=== PATIENT | female | born 1950 | race Caucasian/White ===

== ENCOUNTER → 2020-01-31 09:33 | Outpatient (BNVA) | payer MEDICARE, SELFPAY | PROVIDERS: Visit Provider Internal Medicine Cardiovascular Disease | DX: I44.7 Left bundle-branch block, unspecified (principal); R55 Syncope and collapse; I10 Essential (primary) hypertension | CPT/HCPCS: 99212 ==

== ENCOUNTER 2020-04-05 00:08 | Emergency (ER) | payer MEDICARE, SELFPAY ==
[2020-04-05] VITALS (7 sets, daily range): BP systolic 70–146; BP diastolic 44–71; PULSE 70–90; RESP 15–18; TEMP 36.1–36.6; O2SAT 92–99; BMI 33.7
--- NOTE | 2020-04-05 00:26 | ED.ABDPAIN ---
HPI - Abdominal Pain General Chief Complaint: Abdominal Pain Stated Complaint: abdominal pain Time Seen by Provider: 04/05/20 00:24 Source: patient Mode of arrival: ambulatory Limitations: no limitations History of Present Illness HPI narrative: Patient's history of abdominal migraine since 2013 almost every 40 days she gets episodes of diarrhea and vomiting with abdominal pain been followed up with [facility] today since 22:00 patient has similar episode with diffuse abdominal cramping perfuse diarrhea nausea and vomiting blood pressure at home was 70/50 heart rate 90 patient was feeling very weak. With patient usually gets 2 L of IV fluids and gets better in the past. Prior to this today patient was feeling fine no fever no chills no COVID exposure Related Data Home Medications Medication Instructions Recorded Confirmed cholestyramine (with sugar) 4 gram 4 g PO DAILY 01/31/20 04/05/20 powder for susp in a packet fluoxetine 20 mg capsule 20 mg PO DAILY 01/31/20 04/05/20 levothyroxine 112 mcg tablet 112 mcg PO DAILY 01/31/20 04/05/20 metformin 500 mg tablet,extended 1,000 mg PO BID 01/31/20 04/05/20 release 24 hr simvastatin 20 mg tablet 20 mg PO BEDTIME 01/31/20 04/05/20 blood sugar diagnostic [OneTouch 04/05/20 04/05/20 Verio test strips] dulaglutide [Trulicity] 1.5 mg SUBCUT DAILY 04/05/20 04/05/20 nortriptyline 20 mg PO DAILY 04/05/20 04/05/20 omeprazole 1 cap PO DAILY 04/05/20 04/05/20 rivaroxaban [Xarelto] 1 tab PO DAILY 04/05/20 04/05/20 Previous Rx's Medication Instructions Recorded lisinopril 40 mg tablet 40 mg PO DAILY #60 tab 01/31/20 Allergies Allergy/AdvReac Type Severity Reaction Status Date / Time atenolol Allergy Unknown hives Verified 09/22/19 00:00 Beta-Blockers Allergy Unknown HIVES Verified 04/05/20 00:24 (Beta-Adrenergic Bloc [BETA-BLOCKERS (BETA-ADRENERGIC BLOC] vancomycin [VANCOMYCIN] Allergy Unknown NAUSEA & Verified 04/05/20 00:24 VOMITING Review of Systems Review of Systems Constitutional : No Weight loss, No Fever, No Chills ENT/Mouth : No sore throat, No Rhinorrhea Eyes: No Eye Pain, No Swelling Cardiovascular : No Chest Pain, no palpitations Respiratory : No Cough, No Sputum, no shortness of breath Gastrointestinal : ++ Nausea, + Vomiting, +++Diarrhea, + abdominal Pain, no black stools Genitourinary : No Dysuria, No Urinary Frequency Musculoskeletal : No joint pain, No Myalgias, No Joint Swelling Skin : No Skin Lesions, No rash Neuro : No Weakness, No Numbness, No Dizziness, No Headache Psych : No Anxiety/Panic, No Depression Heme/Lymph: No Bruising, No Lymphadenopathy Endocrine : No Polyuria, No Polydipsia All other systems reviewed and are negative Physical Exam Vital Signs: Vital Signs: Last Vital Signs Temp 97.8 F 04/05/20 02:00 Pulse 72 04/05/20 04:00 Resp 15 04/05/20 04:00 BP 114/55 L 04/05/20 04:00 Pulse Ox 99 04/05/20 04:00 Body Mass Index 33.7 Appearance: Alert. Oriented X3. In moderate distress. Looks weak Eyes: Pupils equal, round and reactive to light. ENT: Pharynx normal. Neck: Normal inspection. Neck supple. CVS: Normal heart rate and rhythm. Pulses normal. Respiratory: No respiratory distress. Breath sounds normal. Abdomen: Soft and nontender. Bowel sounds are present, no mass palpable, no CVA tenderness Skin: Skin warm and dry. Normal skin color. Normal skin turgor. Extremities: No lower extremity edema. Neuro: Oriented X 3. No motor deficit. No sensory deficit. MDM - Abdominal Pain MDM Narrative Medical decision making narrative: Patient's abdominal migraine with frequent diarrhea and nausea vomiting episodes almost every month came here with similar situation usually patient's blood pressure drops and gets better after IV fluids patient blood pressure improved to 146/68 after 2 L of IV fluid patient went to bathroom and had another loose bowel will give another L bolus along with Imodium Differential Diagnosis Differential diagnosis: Likely abdominal pain Lab Data Result diagrams: 04/05/20 01:04 04/05/20 01:04 Labs: Lab Results 04/05/20 04/05/20 Range/Units 01:04 01:04 WBC 18.2 H (4.8-10.8) X10*3/uL RBC 5.51 H (4.20-5.50) X10*6/uL Hgb 15.6 (12.0-16.0) g/dl Hct 48.2 H (37-47) % MCV 87.5 (80-98) fL MCH 28.3 (27.0-33.0) pg MCHC 32.4 (31.0-35.0) g/dl RDW 13.0 (11.0-16.0) % Plt Count 381 (160-400) X10*3/uL MPV 8.9 L (9.4-12.3) fL Immature Gran % (Auto) 1.0 H (0.0-0.4) % Neut % (Auto) 76.9 H (45-73) % Lymph % (Auto) 15.8 L (20-40) % [place] % (Auto) 4.3 (2-11) % Eos % (Auto) 1.6 (0-4) % Baso % (Auto) 0.4 (0-2) % Lymph # (Auto) 2.9 (1.2-4.9) X10*3/uL [place] # (Auto) 0.8 (0.1-1.2) X10*3/uL Eos # (Auto) 0.3 (0.0-0.4) X10*3/uL Baso # (Auto) 0.1 (0.0-0.2) X10*3/uL Abs Immat Gran (auto) 0.19 H (0.00-0.03) X10*3/uL Absolute Neuts (auto) 14.0 H (2.0-8.3) X10*3/uL Absolute Nucleated RBC 0.000 (0.0-0.012) X10*3/uL Nucleated RBC % (auto) 0.0 (0.0-0.2) /100WBC Sodium 141 (135-145) mmol/L Potassium 3.6 (3.3-5.1) mmol/L Chloride 103 (96-108) mmol/L Carbon Dioxide 27 (22-29) mmol/L Anion Gap 15 (12-20) BUN 14 (9-16) mg/dL Creatinine 0.83 (0.5-1.4) mg/dL Estim Creat Clear Calc 67.2 Estimated GFR > 60 Random Glucose 202 H (60-115) mg/dL Calcium 8.9 (8.4-10.2) mg/dL Magnesium 1.7 (1.6-2.6) mg/dL Total Bilirubin 0.6 (0.0-1.0) mg/dL Direct Bilirubin 0.3 (0.0-0.5) mg/dL AST 18 (5-31) U/L ALT 17 (0-31) U/L Alkaline Phosphatase 48 (39-117) U/L Total Protein 5.8 L (6.5-8.0) g/dL Albumin 3.6 (3.5-5.0) g/dL Discharge Plan Discharge Clinical Impression: Abdominal migraine Qualifiers: Intractability: intractable Qualified Code(s): G43.D1 - Abdominal migraine, intractable Patient Disposition: Home, Self-Care Instructions: Acute Diarrhea (ED) Additional Instructions: Drink plenty of fluids. Continue medications as prescribed by your PCP Prescriptions: No Action (DME) OneTouch Verio test strips Strip MISCELLANEOUS DAILY RF: 0 nortriptyline 10 mg capsule 20 mg PO DAILY RF: 0 omeprazole 20 mg capsule,delayed release(DR/EC) 1 cap PO DAILY RF: 0 Xarelto 20 mg tablet 1 tab PO DAILY RF: 0 Trulicity 1.5 mg/0.5 mL pen injector 1.5 mg subcut DAILY RF: 0 metformin 500 mg tablet extended release 24 hr 1,000 mg PO BID RF: 0 simvastatin 20 mg tablet 20 mg PO BEDTIME RF: 0 levothyroxine 112 mcg tablet 112 mcg PO DAILY RF: 0 fluoxetine 20 mg capsule 20 mg PO DAILY RF: 0 cholestyramine (with sugar) 4 gram powder in packet 4 g PO DAILY RF: 0 lisinopril 40 mg tablet 40 mg PO DAILY Qty: 60 RF: 4 Interventions: ED Discharge Assessment Last Done: 04/05/20 03:50 Discharge Date/Time: 04/05/20 04:38 [facility] Past Medical History Medical History Abdominal migraine Bundle branch block, left Diabetes Pulmonary embolism Surgical History History of partial hysterectomy LAP-BAND surgery status Family History Family History Father CVD (cardiovascular disease) Diabetes Mother Diabetes Mitral valve prolapse Social History Social History Smoking Status: Never smoker Use of substances other than those prescribed or required for medical reasons: No Advance Directives: No
[2020-04-05] MEDS: 0.9 % Sodium Chloride 1,000 ML 999 ML IVCONT ×3 (01:23→03:00)
[2020-04-05] MEDS: ondansetron HCL 4 MG/2 ML VIAL IVPUSH (01:23)
[2020-04-05 01:31] LABS: MANUAL DIFF FLAG NO
[2020-04-05 01:32] LABS: Basophils Absolute Auto 0.1 X10*3/uL (0.0-0.2); Basophils Percent Auto 0.4 % (0-2); Eosinophils Absolute Auto 0.3 X10*3/uL (0.0-0.4); Eosinophils Percent Auto 1.6 % (0-4); Hematocrit 48.2 % (37-47); Hemoglobin 15.6 g/dl (12.0-16.0); Imm Gran Abs Auto 0.19 X10*3/uL (0.00-0.03); Lymphocytes Absolute Auto 2.9 X10*3/uL (1.2-4.9); Lymphocytes Percent Auto 15.8 % (20-40); Mean Corpuscular HGB Conc 32.4 g/dl (31.0-35.0); Mean Corpuscular Hemoglobin 28.3 pg (27.0-33.0); Mean Corpuscular Volume 87.5 fL (80-98); Mean Platelet Volume 8.9 fL (9.4-12.3); Monocytes Absolute Auto 0.8 X10*3/uL (0.1-1.2); Monocytes Percent Auto 4.3 % (2-11); Neutrophils Percent Auto 76.9 % (45-73); Platelet Count 381 X10*3/uL (160-400); Red Blood Count 5.51 X10*6/uL (4.20-5.50); White Blood Count 18.2 X10*3/uL (4.8-10.8)
[2020-04-05 02:00] LABS: Alanine Aminotransferase 17 U/L (0-31); Albumin Level 3.6 g/dL (3.5-5.0); Alkaline Phosphatase 48 U/L (39-117); Anion Gap 15 (12-20); Aspartate Amino Transferase 18 U/L (5-31); Bilirubin Direct 0.3 mg/dL (0.0-0.5); Bilirubin Total 0.6 mg/dL (0.0-1.0); Blood Urea Nitrogen 14 mg/dL (9-16); Calcium 8.9 mg/dL (8.4-10.2); Carbon Dioxide 27 mmol/L (22-29); Chloride 103 mmol/L (96-108); Creatinine Clr Calc Pharmacy 67.2; Estimated Glomerular Filt Rate > 60; Glucose Random 202 mg/dL (60-115); Magnesium 1.7 mg/dL (1.6-2.6); Potassium 3.6 mmol/L (3.3-5.1); Sodium 141 mmol/L (135-145); Total Protein 5.8 g/dL (6.5-8.0)
[2020-04-05] MEDS: Loperamide HCl 2 MG CAPSULE 4 MG PO (03:37)
== END 2020-04-05 04:38 | disposition home or self-care (01) ==
PROVIDERS: Emergency Provider Internal Medicine; PCP Internal Medicine
DX: G43.D1 Abdominal migraine, intractable (principal); R19.7 Diarrhea, unspecified; E11.9 Type 2 diabetes mellitus without complications; Z86.711 Personal history of pulmonary embolism; Z79.84 Long term (current) use of oral hypoglycemic drugs; Z79.02 Long term (current) use of antithrombotics/antiplatelets; Z79.899 Other long term (current) drug therapy
CPT/HCPCS: 36415; 80048; 80076; 83735; 85025; 96361; 96374; 96375; 99284; 99285; J2405

== ENCOUNTER → 2020-04-17 12:14 | Outpatient (BNVA) | payer MEDICARE, SELFPAY | PROVIDERS: PCP Internal Medicine; Visit Provider Internal Medicine Cardiovascular Disease | DX: I44.7 Left bundle-branch block, unspecified (principal); R55 Syncope and collapse; I10 Essential (primary) hypertension | CPT/HCPCS: 99212 ==

== ENCOUNTER → 2020-07-17 08:57 | Outpatient (BNVA) | payer MEDICARE, SELFPAY | PROVIDERS: PCP Internal Medicine; Referring Provider Internal Medicine; Visit Provider Internal Medicine Cardiovascular Disease | DX: I44.7 Left bundle-branch block, unspecified (principal); I10 Essential (primary) hypertension; R55 Syncope and collapse | CPT/HCPCS: 93005; 99212 ==

== ENCOUNTER → 2020-11-22 09:18 | Outpatient (BNVA) | payer MEDICARE, SELFPAY | PROVIDERS: PCP Internal Medicine; Referring Provider Internal Medicine; Visit Provider Internal Medicine Cardiovascular Disease | DX: I44.7 Left bundle-branch block, unspecified (principal); R55 Syncope and collapse; I10 Essential (primary) hypertension | CPT/HCPCS: 99212 ==

== ENCOUNTER 2021-03-01 19:06 | Emergency (ER) | payer MEDICARE, SELFPAY ==
--- NOTE | 2021-03-01 19:16 | ED.GENADULT ---
HPI - General Adult General Chief complaint: General Medical Stated complaint: hypotension/diarrhea Time Seen by Provider: 03/01/21 19:11 Source: patient and EMS Mode of arrival: EMS Limitations: no limitations History of Present Illness HPI narrative: Patient comes to emergency room complaining of an abdominal migraine. Patient states that she gets a very sudden onset of flushing sensation in her face, lightheadedness. Patient states that she lowered herself to the ground, put her legs up against a wall. Then patient had profuse diarrhea. Patient states that this is how her abdominal migraines usually presents, she has had this episodes multiple times in the past. During this episodes, patient's blood pressure drops to the 70s. Patient states that when she gets 2 L of normal saline, her symptoms improved, and she is usually discharged home. Patient is on Xarelto, denies any black stool or bloody stool. Patient did not hit her head or loss consciousness, patient lowered herself to the above-mentioned reason. At this time, patient states that she feels better. Patient denies chest pain, no shortness of breath, no abdominal pain. Related Data Home Medications Medication Instructions Recorded Confirmed cholestyramine (with sugar) 4 gram 4 g PO DAILY 01/31/20 11/22/20 powder for susp in a packet fluoxetine 20 mg capsule 20 mg PO DAILY 01/31/20 11/22/20 levothyroxine 112 mcg tablet 112 mcg PO DAILY 01/31/20 11/22/20 metformin 500 mg tablet,extended 1,000 mg PO BID 01/31/20 11/22/20 release 24 hr simvastatin 20 mg tablet 20 mg PO BEDTIME 01/31/20 11/22/20 blood sugar diagnostic (OneTouch 04/05/20 11/22/20 Verio test strips) dulaglutide 1.5 mg/0.5 mL 1.5 mg SUBCUT DAILY 04/05/20 11/22/20 subcutaneous pen injector (Trulicity) omeprazole 20 mg capsule,delayed 1 cap PO DAILY 04/05/20 11/22/20 release rivaroxaban 20 mg tablet (Xarelto) 1 tab PO DAILY 04/05/20 11/22/20 hyoscyamine sulfate 0.125 mg 0.125 mg SUBLINGUAL DAILY PRN 04/17/20 11/22/20 sublingual tablet metoprolol succinate 25 mg See Rx Instructions PO BID 07/17/20 11/22/20 tablet,extended release 24 hr nortriptyline 50 mg capsule 50 mg PO BEDTIME 07/17/20 11/22/20 galcanezumab-gnlm 120 mg/mL mg SUBCUT 11/22/20 11/22/20 subcutaneous syringe (Emgality) Previous Rx's Medication Instructions Recorded lisinopril 40 mg tablet 20 mg PO DAILY 90 Days #45 tab 11/07/20 Allergies Allergy/AdvReac Type Severity Reaction Status Date / Time atenolol Allergy Intermediate hives Verified 03/01/21 19:17 Beta-Blockers Allergy Intermediate HIVES Verified 03/01/21 19:17 (Beta-Adrenergic Bloc [BETA-BLOCKERS (BETA-ADRENERGIC BLOC] vancomycin [VANCOMYCIN] Allergy Intermediate NAUSEA & Verified 03/01/21 19:17 VOMITING Review of Systems Review of Systems: Constitutional : No Weight loss, No Fever, No Chills, No Night Sweats, No Fatigue, No Malaise ENT/Mouth : No Hearing loss, No Ear Pain, No Nasal Congestion, No Sinus Pain, No Hoarseness, No sore throat, No Rhinorrhea, No Swallowing Difficulty Eyes: No Eye Pain, No Swelling, No Redness, No Foreign Body, No Discharge, No Vision Changes Cardiovascular : No Chest Pain, No SOB, No Dyspnea on Exertion, No Orthopnea, No Edema, No Palpitations Respiratory : No Cough, No Sputum, No Wheezing, No Smoke Exposure, No Dyspnea Gastrointestinal : Abdominal migraine, nausea, profuse diarrhea. No Constipation, No abdominal Pain, No Hematochezia, No Melena Genitourinary : no irregular bleeding, No Dysuria, No Urinary Frequency, No Hematuria, No Urinary Incontinence, No Urgency, No Flank Pain, No Urinary Flow Changes, No Hesitancy Musculoskeletal : No joint pain, No Myalgias, No Joint Swelling Skin : No Skin Lesions, No rash Neuro : No Weakness, No Numbness, No Paresthesias, No Loss of Consciousness, No Dizziness, No Headache Psych : No Anxiety/Panic, No Depression, No SI/HI/AH/VH, No Social Issues, Heme/Lymph: No Bruising, No Bleeding,No Lymphadenopathy Endocrine : No Polyuria, No Polydipsia, No Temperature Intolerance PMFSH Past Medical History Medical History Abdominal migraine Bundle branch block, left Diabetes Pulmonary embolism Surgical History History of partial hysterectomy LAP-BAND surgery status Family History Family History Father CVD (cardiovascular disease) Diabetes Mother Diabetes Mitral valve prolapse Social History Social History Alcohol intake: never Patient Tobacco Use Status: Never used Tobacco Advance Directives: No Advance Directives Information Provided: Yes Physical Exam Vital Signs: Vital Signs: Last Vital Signs Temp 97.5 F 03/01/21 19:42 Pulse 71 03/01/21 20:43 Resp 22 H 03/01/21 19:42 BP 113/56 L 03/01/21 20:43 Pulse Ox 95 03/01/21 19:42 BMI result Body Mass Index 33.9 Const: Other: Appearance: Alert. Oriented X3. No acute distress. Eyes: Pupils equal, round and reactive to light. ENT: Pharynx normal. Neck: Normal inspection. Neck supple. No lymph nodes noted. No crepitus CVS: Normal heart rate and rhythm. Pulses normal. Normal S1 and S2 Respiratory: No respiratory distress. Breath sounds normal. No Wheezing. No rales Abdomen: Soft and nontender. No rigidity. No distention. Skin: Skin warm and dry. Slightly pale. Extremities: No lower extremity edema. No Lacerations. No Rash Neuro: Oriented X 3. No motor deficit. No sensory deficit. Moving all extermities. No slurred speech. Course Course Course Narrative: After 2 L of IV fluids, patient states that she feels much better. Blood pressure 104 systolic. Patient denies dizziness, no more diarrhea, no abdominal pain, no chest pain or shortness of breath. Orthostatic vitals are negative. Patient has no dizziness, patient states that she feels back to baseline. Patient states that she has enough medications for nausea and diarrhea at home, does not require a prescription with her will be picking her up shortly Medical Decision Making Lab Data Result diagrams: 03/01/21 19:36 03/01/21 19:36 Labs: Lab Results 03/01/21 03/01/21 Range/Units 19:36 19:36 WBC 9.5 (4.8-10.8) X10*3/uL RBC 4.43 (4.20-5.50) X10*6/uL Hgb 12.5 (12.0-16.0) g/dl Hct 38.7 (37.0-47.0) % MCV 87.4 (80.0-98.0) fL MCH 28.2 (27.0-33.0) pg MCHC 32.3 (31.0-35.0) g/dl RDW 12.9 (11.0-16.0) % Plt Count 313 (160-400) X10*3/uL MPV 8.9 L (9.4-12.3) fL Immature Gran % (Auto) 0.5 H (0.0-0.4) % Neut % (Auto) 60.4 (45-73) % Lymph % (Auto) 28.3 (20-40) % [place] % (Auto) 7.9 (2-11) % Eos % (Auto) 2.3 (0-4) % Baso % (Auto) 0.6 (0-2) % Lymph # (Auto) 2.7 (1.2-4.9) X10*3/uL [place] # (Auto) 0.8 (0.1-1.2) X10*3/uL Eos # (Auto) 0.2 (0.0-0.4) X10*3/uL Baso # (Auto) 0.1 (0.0-0.2) X10*3/uL Abs Immat Gran (auto) 0.05 H (0.00-0.03) X10*3/uL Absolute Neuts (auto) 5.7 (2.0-8.3) x10*3/uL Absolute Nucleated RBC 0.000 (0.0-0.012) X10*3/uL Nucleated RBC % (auto) 0.0 (0.0-0.2) /100WBC Sodium 139 (135-145) mmol/L Potassium 4.2 (3.3-5.1) mmol/L Chloride 105 (96-108) mmol/L Carbon Dioxide 28 (22-29) mmol/L Anion Gap 10 L (12-20) BUN 10 (9-16) mg/dL Creatinine 0.74 (0.5-1.4) mg/dL Estim Creat Clear Calc 72.8 Estimated GFR > 60 Random Glucose 126 H (60-115) mg/dL Calcium 8.7 (8.4-10.2) mg/dL Total Bilirubin 0.6 (0.0-1.0) mg/dL Direct Bilirubin 0.2 (0.0-0.5) mg/dL AST 15 (5-31) U/L ALT 10 (0-31) U/L Alkaline Phosphatase 45 (39-117) U/L Total Protein 5.6 L (6.5-8.0) g/dL Albumin 3.3 L (3.5-5.0) g/dL Discharge Plan Discharge Clinical Impression: Abdominal migraine Patient Disposition: Home, Self-Care Instructions: Acute Diarrhea (ED) Additional Instructions: Please follow-up with your primary care physician tomorrow. If you have any worsening or new symptoms, please return to the emergency room or call 911 Prescriptions: No Action lisinopril 40 mg tablet 20 mg PO DAILY 90 Days Qty: 45 RF: 3 (DME) OneTouch Verio test strips Strip MISCELLANEOUS DAILY RF: 0 omeprazole 20 mg capsule,delayed release(DR/EC) 1 cap PO DAILY RF: 0 Xarelto 20 mg tablet 1 tab PO DAILY RF: 0 Trulicity 1.5 mg/0.5 mL pen injector 1.5 mg subcut DAILY RF: 0 metformin 500 mg tablet extended release 24 hr 1,000 mg PO BID RF: 0 simvastatin 20 mg tablet 20 mg PO BEDTIME RF: 0 levothyroxine 112 mcg tablet 112 mcg PO DAILY RF: 0 fluoxetine 20 mg capsule 20 mg PO DAILY RF: 0 cholestyramine (with sugar) 4 gram powder in packet 4 g PO DAILY RF: 0 hyoscyamine sulfate 0.125 mg tablet, sublingual 0.125 mg sublingual DAILY PRNRF: 0 metoprolol succinate 25 mg tablet extended release 24 hr See Rx Instructions PO BID RF: 0 nortriptyline 50 mg capsule 50 mg PO BEDTIME RF: 0 Emgality Syringe 120 mg/mL syringe subcut RF: 0
[2021-03-01 19:17] VITALS: BP 50/30; BP 83/40; PULSE 70; PULSE 76; RESP 18; O2SAT 90; O2SAT 98; BMI 33.9
[2021-03-01] MEDS: 0.9 % Sodium Chloride 2,000 ML 999 ML IVCONT (19:38)
[2021-03-01] MEDS: Loperamide HCl 2 MG CAPSULE 4 MG PO (19:40)
[2021-03-01 19:42] VITALS: BP 81/34; PULSE 67; RESP 22; TEMP 36.4; O2SAT 95
[2021-03-01 19:42] LABS: MANUAL DIFF FLAG NO
[2021-03-01 19:49] LABS: Basophils Absolute Auto 0.1 X10*3/uL (0.0-0.2); Basophils Percent Auto 0.6 % (0-2); Eosinophils Absolute Auto 0.2 X10*3/uL (0.0-0.4); Eosinophils Percent Auto 2.3 % (0-4); Hematocrit 38.7 % (37.0-47.0); Hemoglobin 12.5 g/dl (12.0-16.0); Imm Gran Abs Auto 0.05 X10*3/uL (0.00-0.03); Imm Gran Pct Auto 0.5 % (0.0-0.4); Lymphocytes Absolute Auto 2.7 X10*3/uL (1.2-4.9); Lymphocytes Percent Auto 28.3 % (20-40); Mean Corpuscular HGB Conc 32.3 g/dl (31.0-35.0); Mean Corpuscular Hemoglobin 28.2 pg (27.0-33.0); Mean Corpuscular Volume 87.4 fL (80.0-98.0); Mean Platelet Volume 8.9 fL (9.4-12.3); Monocytes Absolute Auto 0.8 X10*3/uL (0.1-1.2); Monocytes Percent Auto 7.9 % (2-11); Neutrophils Absolute Auto 5.7 x10*3/uL (2.0-8.3); Neutrophils Percent Auto 60.4 % (45-73); Platelet Count 313 X10*3/uL (160-400); Red Blood Count 4.43 X10*6/uL (4.20-5.50); Red Cell Distribution Width 12.9 % (11.0-16.0); White Blood Count 9.5 X10*3/uL (4.8-10.8)
[2021-03-01 19:57] LABS: Alanine Aminotransferase 10 U/L (0-31); Albumin Level 3.3 g/dL (3.5-5.0); Alkaline Phosphatase 45 U/L (39-117); Anion Gap 10 (12-20); Aspartate Amino Transferase 15 U/L (5-31); Bilirubin Direct 0.2 mg/dL (0.0-0.5); Bilirubin Total 0.6 mg/dL (0.0-1.0); Blood Urea Nitrogen 10 mg/dL (9-16); Calcium 8.7 mg/dL (8.4-10.2); Carbon Dioxide 28 mmol/L (22-29); Chloride 105 mmol/L (96-108); Creatinine Clr Calc Pharmacy 72.8; Estimated Glomerular Filt Rate > 60; Glucose Random 126 mg/dL (60-115); Potassium 4.2 mmol/L (3.3-5.1); Sodium 139 mmol/L (135-145); Total Protein 5.6 g/dL (6.5-8.0)
[2021-03-01 20:41] VITALS: BP 114/59; PULSE 72
[2021-03-01 20:42] VITALS: BP 122/58; PULSE 72
[2021-03-01 20:43] VITALS: BP 113/56; PULSE 71
== END 2021-03-01 21:47 | disposition home or self-care (01) ==
PROVIDERS: Emergency Provider Emergency Medicine
DX: G43.D0 Abdominal migraine, not intractable (principal); E11.9 Type 2 diabetes mellitus without complications; Z79.4 Long term (current) use of insulin
CPT/HCPCS: 36415; 80048; 80076; 85025; 96360; 96361; 99284

== ENCOUNTER 2021-03-26 09:41 | Outpatient (REF) | payer MEDICARE, SELFPAY ==
[2021-03-26 12:05] LABS: D Dimer High Sensitivity 194 NG/ML
[2021-03-26 12:30] LABS: B Type Natriuretic Peptide 947 pg/mL (<100)
== END 2021-03-26 09:42 | disposition home or self-care (01) ==
LOC: HO.LAB 09:41
PROVIDERS: PCP Internal Medicine; Visit Provider Internal Medicine Cardiovascular Disease
DX: R06.00 Dyspnea, unspecified (principal)
CPT/HCPCS: 36415; 83880; 85379

== ENCOUNTER 2021-03-28 07:44 | Observation (INO) | payer MEDICARE, SELFPAY ==
[2021-03-28] VITALS (12 sets, daily range): BP systolic 000–128; BP diastolic 00–69; PULSE 77–93; RESP 16–20; TEMP 36.2–36.8; O2SAT 91–97; BMI 32.2
--- NOTE | ~2021-03-28 | XR_ITS ---
EXAMINATION: XR CHEST CLINICAL INFORMATION: Evaluate for edema COMPARISON: December 10, 2018 TECHNIQUE: AP portable view of the chest was obtained. FINDINGS: The cardiopericardial silhouette is enlarged. There is no evidence of pulmonary edema. There is some left base lung disease which may be related to atelectasis or pneumonitis. No pneumothorax or pleural effusion. XR/XR chest 1V IMPRESSION: Cardiomegaly without pulmonary edema. Left lung base disease.
--- NOTE | ~2021-03-28 | CT_ITS ---
EXAMINATION: CT ABDOMEN AND PELVIS WITHOUT AND WITH CONTRAST CLINICAL INFORMATION: Abdominal pain COMPARISON: 12/10/2018 TECHNIQUE: Multidetector volumetric imaging was performed of the abdomen and pelvis before and after the IV administration of 100 mL of Omnipaque 300 intravenous contrast. Sagittal and coronal reformatted images were obtained on the technologist's workstation. This CT examination was performed using dose optimization techniques as appropriate, variously including the following: *Automated exposure control *Adjustment of mA and/or kV according to patient size (this includes techniques or standardized protocols for targeted exams where dose is matched to indication/reason for exam; i.e. extremities or head) *Use of iterative reconstruction technique DLP: 1624 mGy-cm FINDINGS: LUNG BASES: Dependent atelectasis and tiny bilateral pleural effusions. PERITONEAL BASES: Small volume of abdominal ascites. LIVER, GALLBLADDER, AND BILIARY TREE: Tiny millimeter-sized low-attenuation probable hepatic cysts but no suspicious hepatic lesion nor biliary ductal dilatation The gallbladder is unremarkable with no evidence of radiopaque gallstones, gallbladder wall thickening, or obvious pericholecystic inflammatory changes. PANCREAS: Unremarkable SPLEEN: Unremarkable ADRENAL GLANDS: Stable nodularity to the left adrenal gland measuring 1.8 cm in maximal size with stable nodularity to the right adrenal gland measuring 1.4 cm in size. KIDNEYS AND URETERS: The kidneys are normal in size, shape, and attenuation. No hydronephrosis, hydroureter, or calculi seen. No perinephric stranding. BLADDER: Unremarkable GASTROINTESTINAL TRACT: Colon is redundant. There is abnormal colonic wall thickening extending from the distal transverse colon to the proximal sigmoid colon. There is pericolonic inflammatory change associated with this region of probable colitis. The more proximal colon is grossly unremarkable. No obstructive changes to the small bowel. Mapping and noted. ABDOMINAL WALL: Again there is a coarse calcification the right lower quadrant abdominal wall similar to the prior study LYMPH NODES: Normal VASCULAR: Mild vascular calcification within the aorta iliac system PELVIC VISCERA: Presumably surgically absent OSSEOUS STRUCTURES: Unremarkable CT/CT abdomen pelvis wo/w con IMPRESSION: Main finding of note is abnormal colonic wall thickening from the distal transverse colon to the proximal sigmoid colon. With this long segment of disease, infectious or inflammatory causes of colitis would be favored. This is a relatively long segment area for ischemic colitis. Clinical correlation would be needed in this setting. There are other more chronic appearing changes as described above. Fleischner guidelines were followed.
--- NOTE | ~2021-03-28 | CT_ITS ---
EXAMINATION: CT CHEST WITHOUT CONTRAST CLINICAL INFORMATION: Evaluate for pneumonia COMPARISON: Previous chest x-rays most recent from earlier the same day TECHNIQUE: Multidetector volumetric CT imaging of the chest was done. Axial MIP volume rendering provided. Sagittal and coronal reformatted images were obtained. This CT examination was performed using dose optimization techniques as appropriate, variously including the following: *Automated exposure control *Adjustment of mA and/or kV according to patient size (this includes techniques or standardized protocols for targeted exams where dose is matched to indication/reason for exam; i.e. extremities or head) *Use of iterative reconstruction technique DLP: 256 mGy-cm FINDINGS: GUIDANCE CONSULTANT: LUNGS: The lungs are clear with no evidence of inflammation or nodules. MEDIASTINUM: The heart is enlarged. There is mild coronary artery calcification. There is no pericardial effusion. There is shotty diffuse mediastinal lymphadenopathy. Evaluation for hilar adenopathy is limited without contrast. PLEURA: There are small bilateral pleural effusions, right greater than left. AXILLA: No lymphadenopathy. UPPER ABDOMEN: There is a small amount of ascites. There is a gastric lap band. There may be a small 8 x 10 mm low-attenuation left adrenal nodule. There is fat stranding seen in the left upper quadrant adjacent to the colon. There is question of mild wall thickening of the visualized left colon. OSSEOUS STRUCTURES: There are degenerative changes of the spine. CT/CT chest wo con IMPRESSION: Enlarged heart and small bilateral pleural effusions. Possible mild CHF should be considered. Gastric lap band. Small amount of ascites. Fat stranding in the left upper quadrant surrounding the colon and question mild bowel wall thickening. Clinical correlation is recommended. This finding could be better evaluated with abdominal pelvic CT scan if clinically indicated. Fleischner guidelines were followed.
--- NOTE | 2021-03-28 07:53 | ECG_ITS ---
Test Reason : HYPOTENSIVE Blood Pressure : / mmHG Vent. Rate : 076 BPM Atrial Rate : 076 BPM P-R Int : 186 ms QRS Dur : 144 ms QT Int : 466 ms P-R-T Axes : 062 -80 094 degrees QTc Int : 524 ms Normal sinus rhythm Left axis deviation Non-specific intra-ventricular conduction block Inferior infarct , age undetermined Anterolateral infarct , age undetermined Abnormal ECG When compared with ECG of 10-DEC-2018 18:13, Questionable change in QRS duration Anterior infarct is now Present Anterolateral infarct is now Present Inferior infarct is now Present Referred By: Claribel Perez Electronically Signed By:RANJANA PEREZ MD
--- NOTE | 2021-03-28 07:54 | ED.WEAKNESS ---
HPI - Weakness General Chief complaint: Headache Stated complaint: LOW BP 70/42, IV 500NS, 87/42,ABD PAIN,DIARRHEA Time Seen by Provider: 03/28/21 07:52 Source: patient Mode of arrival: EMS Limitations: no limitations History of Present Illness Complaint: generalized weakness (BP in 70s, abdominal migraine, liquid stools) Onset (ago): hour(s) (few) Duration: constant Location: generalized Migration: none Severity: moderate Quality: dull Relieving factors: other (given IVF by EMS) Context: other (hx of similar bouts with abdominal migraines in past) Associated symptoms: loss of appetite and nausea/vomiting Related Data Home Medications Medication Instructions Recorded Confirmed cholestyramine (with sugar) 4 gram 4 g PO DAILY 01/31/20 03/26/21 powder for susp in a packet fluoxetine 20 mg capsule 20 mg PO DAILY 01/31/20 03/26/21 levothyroxine 112 mcg tablet 112 mcg PO DAILY 01/31/20 03/26/21 metformin 500 mg tablet,extended 1,000 mg PO BID 01/31/20 03/26/21 release 24 hr simvastatin 20 mg tablet 20 mg PO BEDTIME 01/31/20 03/26/21 blood sugar diagnostic (OneTouch 04/05/20 03/26/21 Verio test strips) dulaglutide 1.5 mg/0.5 mL 1.5 mg SUBCUT DAILY 04/05/20 03/26/21 subcutaneous pen injector (Trulicity) omeprazole 20 mg capsule,delayed 1 cap PO DAILY 04/05/20 03/26/21 release rivaroxaban 20 mg tablet (Xarelto) 1 tab PO DAILY 04/05/20 03/26/21 hyoscyamine sulfate 0.125 mg 0.125 mg SUBLINGUAL DAILY PRN 04/17/20 03/26/21 sublingual tablet metoprolol succinate 25 mg See Rx Instructions PO BID 07/17/20 03/26/21 tablet,extended release 24 hr nortriptyline 50 mg capsule 50 mg PO BEDTIME 07/17/20 03/26/21 galcanezumab-gnlm 120 mg/mL mg SUBCUT 11/22/20 03/26/21 subcutaneous syringe (Emgality) Previous Rx's Medication Instructions Recorded lisinopril 40 mg tablet 20 mg PO DAILY 90 Days #45 tab 11/07/20 Allergies Allergy/AdvReac Type Severity Reaction Status Date / Time atenolol Allergy Intermediate hives Verified 03/26/21 10:16 Beta-Blockers Allergy Intermediate HIVES Verified 03/26/21 10:16 (Beta-Adrenergic Bloc [BETA-BLOCKERS (BETA-ADRENERGIC BLOC] vancomycin [VANCOMYCIN] Allergy Intermediate NAUSEA & Verified 03/26/21 10:16 VOMITING Review of Systems Review of Systems: Constitutional : No Weight loss, No Fever, No Chills ENT/Mouth : No sore throat, No Rhinorrhea Eyes: No Swelling, No Redness Cardiovascular : No Chest Pain, No SOB, NoEdema Respiratory : No Cough, No Sputum, No Wheezing Gastrointestinal : Positive Nausea, no Vomiting, positive Diarrhea, positive abdominal Pain, No Hematochezia, No Melena Genitourinary : No Dysuria, No Urinary Frequency, No Hematuria, No Urgency Musculoskeletal : No joint pain, No Myalgias, No Joint Swelling Skin : No Skin Lesions, No rash Neuro : pos Weakness, No Numbness, No Dizziness, No Headache Psych : No Anxiety/Panic, No Depression Heme/Lymph: No Bruising, No Lymphadenopathy Endocrine : No Polyuria, No Polydipsia All other systems reviewed and are negative. [facility] Past Medical History Attestation statement: The following information was validated with the patient. Medical History Abdominal migraine Bundle branch block, left Diabetes Ischemic bowel disease Pulmonary embolism Surgical History History of partial hysterectomy LAP-BAND surgery status Family History Family History Father CVD (cardiovascular disease) Diabetes Mother Diabetes Mitral valve prolapse Social History Social History Alcohol intake: never Patient Tobacco Use Status: Never used Tobacco Use of substances other than those prescribed or required for medical reasons: No Advance Directives: Yes Advance Directives Information Provided: No Advance Directives on File: No Physical Exam Vital Signs: Vital Signs: Last Vital Signs Temp 97.2 F 03/28/21 07:57 Pulse 84 03/28/21 12:45 Resp 18 03/28/21 12:45 BP 97/48 L 03/28/21 12:45 Pulse Ox 97 03/28/21 12:45 BMI result Body Mass Index 32.2 Appearance: Alert. Oriented X3. Moderate acute distress. Eyes: Pupils equal, round and reactive to light. ENT: Pharynx mildly dry MM Neck: Normal inspection. Neck supple. CVS: Normal heart rate and rhythm. Pulses normal. Respiratory: No respiratory distress. Breath sounds normal. Abdomen: Soft and non-tender. Skin: Skin cool and dry. pale skin color. poor skin turgor. Extremities: No lower extremity edema. No calf ttp Neuro: Oriented X 3. No motor deficit. No sensory deficit. Course Course Course Narrative: BP up to 99 at this time pateint improving feeling better, WBC elevated which is not new for patient during these episodes as well as her lactic acid is up. Hypotension also common with her episodes of abdominal migraine. Both lab values trend up during her abdominal migraines at this time likely due to episode and dehydration - I do not suspect severe sepsis or bacterial infection at this time. lactic acid cleared CT scan of chest ordered to r/o possible pneumonia patient BP not responding to fluids she notes she usually drinks 2L of IVF fluids a day, she feels very tired the only thing that is new is she took a dose of nurtec during her episode today which is a brand new medication for migraines ?reaction to medication as well will add on steroids at this time possible infection suspected though most likely her abdominal migraine and reaction to nurtec will add on one dose of ceftriaxone pending UA - possible infection suspected 1258pm. slowly improving, lomotil for diarrhea, seems more awake after steroids and additional fluids 117/56 MDM - Weakness MDM Narrative Medical decision making narrative: 71 yo female well known to us with hx of abdominal migraines her with c/o loose stool feeling week nausea consistent with her abdominal migraine at this time her symptoms are concerning for similar bout with hypotension - she normally responds well to IVF - will obtain basic labs, hydrate with 2L of IVF, close observation for improvement. nontender abdomen, no CP/SOB. Lab Data Result diagrams: 03/28/21 09:42 03/28/21 09:42 Labs: Lab Results 03/28/21 03/28/21 03/28/21 Range/Units 08:30 08:33 08:44 WBC (4.8-10.8) X10*3/uL RBC (4.20-5.50) X10*6/uL Hgb (12.0-16.0) g/dl Hct (37.0-47.0) % MCV (80.0-98.0) fL MCH (27.0-33.0) pg MCHC (31.0-35.0) g/dl RDW (11.0-16.0) % Plt Count (160-400) X10*3/uL MPV (9.4-12.3) fL Immature Gran % (Auto) (0.0-0.4) % Neut % (Auto) (45-73) % Lymph % (Auto) (20-40) % [place] % (Auto) (2-11) % Eos % (Auto) (0-4) % Baso % (Auto) (0-2) % Lymph # (Auto) (1.2-4.9) X10*3/uL [place] # (Auto) (0.1-1.2) X10*3/uL Eos # (Auto) (0.0-0.4) X10*3/uL Baso # (Auto) (0.0-0.2) X10*3/uL Abs Immat Gran (auto) (0.00-0.03) X10*3/uL Absolute Neuts (auto) (2.0-8.3) x10*3/uL Absolute Nucleated RBC (0.0-0.012) X10*3/uL Nucleated RBC % (auto) (0.0-0.2) /100WBC Smear Tech's Comments VBG pH 7.28 L (7.32-7.43) VBG pCO2 39 mmHg VBG pO2 36 mmHg VBG HCO3 18 L (22-26) mmol/L VBG O2 Saturation 41.0 % VBG Base Excess -7.4 mmol/L Sodium (135-145) mmol/L Potassium (3.3-5.1) mmol/L Chloride (96-108) mmol/L Carbon Dioxide (22-29) mmol/L Anion Gap (12-20) BUN (9-16) mg/dL Creatinine (0.5-1.4) mg/dL Estim Creat Clear Calc Estimated GFR Random Glucose (60-115) mg/dL Lactic Acid 3.8 H* (0.5-2.0) mmol/L Lactic Acid F/U @ 2Hr (0.5-2.0) mmol/L Calcium (8.4-10.2) mg/dL Magnesium (1.6-2.6) mg/dL Total Bilirubin (0.0-1.0) mg/dL Direct Bilirubin (0.0-0.5) mg/dL AST (5-31) U/L ALT (0-31) U/L Alkaline Phosphatase (39-117) U/L Troponin I High Sens (<3.5-17.0) ng/L Total Protein (6.5-8.0) g/dL Albumin (3.5-5.0) g/dL Lipase (8-78) U/L COVID-19 (ANT) Negative (Negative) COVID-19 Clin Com See Note 03/28/21 03/28/21 03/28/21 Range/Units 09:42 09:42 09:42 WBC 21.8 H (4.8-10.8) X10*3/uL RBC 5.18 (4.20-5.50) X10*6/uL Hgb 14.3 (12.0-16.0) g/dl Hct 47.1 H D (37.0-47.0) % MCV 90.9 (80.0-98.0) fL MCH 27.6 (27.0-33.0) pg MCHC 30.4 L (31.0-35.0) g/dl RDW 13.3 (11.0-16.0) % Plt Count 459 H D (160-400) X10*3/uL MPV 9.4 (9.4-12.3) fL Immature Gran % (Auto) 1.4 H (0.0-0.4) % Neut % (Auto) 83.8 H (45-73) % Lymph % (Auto) 7.0 L (20-40) % [place] % (Auto) 6.9 (2-11) % Eos % (Auto) 0.5 (0-4) % Baso % (Auto) 0.4 (0-2) % Lymph # (Auto) 1.5 (1.2-4.9) X10*3/uL [place] # (Auto) 1.5 H (0.1-1.2) X10*3/uL Eos # (Auto) 0.1 (0.0-0.4) X10*3/uL Baso # (Auto) 0.1 (0.0-0.2) X10*3/uL Abs Immat Gran (auto) 0.30 H (0.00-0.03) X10*3/uL Absolute Neuts (auto) 18.3 H (2.0-8.3) x10*3/uL Absolute Nucleated RBC 0.000 (0.0-0.012) X10*3/uL Nucleated RBC % (auto) 0.0 (0.0-0.2) /100WBC Smear Tech's Comments VERIFIED VBG pH (7.32-7.43) VBG pCO2 mmHg VBG pO2 mmHg VBG HCO3 (22-26) mmol/L VBG O2 Saturation % VBG Base Excess mmol/L Sodium 139 (135-145) mmol/L Potassium 5.1 D (3.3-5.1) mmol/L Chloride 109 H (96-108) mmol/L Carbon Dioxide 24 (22-29) mmol/L Anion Gap 11 L (12-20) BUN 13 (9-16) mg/dL Creatinine 0.84 (0.5-1.4) mg/dL Estim Creat Clear Calc 63.9 Estimated GFR > 60 Random Glucose 141 H (60-115) mg/dL Lactic Acid (0.5-2.0) mmol/L Lactic Acid F/U @ 2Hr (0.5-2.0) mmol/L Calcium 8.2 L (8.4-10.2) mg/dL Magnesium 1.7 (1.6-2.6) mg/dL Total Bilirubin 0.9 (0.0-1.0) mg/dL Direct Bilirubin 0.4 (0.0-0.5) mg/dL AST 20 (5-31) U/L ALT 12 (0-31) U/L Alkaline Phosphatase 64 D (39-117) U/L Troponin I High Sens 12.9 (<3.5-17.0) ng/L Total Protein 5.4 L (6.5-8.0) g/dL Albumin 3.2 L (3.5-5.0) g/dL Lipase 59 (8-78) U/L COVID-19 (ANT) (Negative) COVID-19 Clin Com 03/28/21 Range/Units 11:05 WBC (4.8-10.8) X10*3/uL RBC (4.20-5.50) X10*6/uL Hgb (12.0-16.0) g/dl Hct (37.0-47.0) % MCV (80.0-98.0) fL MCH (27.0-33.0) pg MCHC (31.0-35.0) g/dl RDW (11.0-16.0) % Plt Count (160-400) X10*3/uL MPV (9.4-12.3) fL Immature Gran % (Auto) (0.0-0.4) % Neut % (Auto) (45-73) % Lymph % (Auto) (20-40) % [place] % (Auto) (2-11) % Eos % (Auto) (0-4) % Baso % (Auto) (0-2) % Lymph # (Auto) (1.2-4.9) X10*3/uL [place] # (Auto) (0.1-1.2) X10*3/uL Eos # (Auto) (0.0-0.4) X10*3/uL Baso # (Auto) (0.0-0.2) X10*3/uL Abs Immat Gran (auto) (0.00-0.03) X10*3/uL Absolute Neuts (auto) (2.0-8.3) x10*3/uL Absolute Nucleated RBC (0.0-0.012) X10*3/uL Nucleated RBC % (auto) (0.0-0.2) /100WBC Smear Tech's Comments VBG pH (7.32-7.43) VBG pCO2 mmHg VBG pO2 mmHg VBG HCO3 (22-26) mmol/L VBG O2 Saturation % VBG Base Excess mmol/L Sodium (135-145) mmol/L Potassium (3.3-5.1) mmol/L Chloride (96-108) mmol/L Carbon Dioxide (22-29) mmol/L Anion Gap (12-20) BUN (9-16) mg/dL Creatinine (0.5-1.4) mg/dL Estim Creat Clear Calc Estimated GFR Random Glucose (60-115) mg/dL Lactic Acid (0.5-2.0) mmol/L Lactic Acid F/U @ 2Hr 1.9 (0.5-2.0) mmol/L Calcium (8.4-10.2) mg/dL Magnesium (1.6-2.6) mg/dL Total Bilirubin (0.0-1.0) mg/dL Direct Bilirubin (0.0-0.5) mg/dL AST (5-31) U/L ALT (0-31) U/L Alkaline Phosphatase (39-117) U/L Troponin I High Sens (<3.5-17.0) ng/L Total Protein (6.5-8.0) g/dL Albumin (3.5-5.0) g/dL Lipase (8-78) U/L COVID-19 (ANT) (Negative) COVID-19 Clin Com ECG Data Attestation: I personally reviewed and interpreted this ECG as follows: ECG interpretation date: 03/28/21 ECG interpretation time: 08:19 Interpretation: Rate: 76 Rhythm: NSR [place]: left Normal P waves. Normal BERRY. LBBB ST T wave : inverted t wave I and aVL, no BILL qTC: normal prior studies: no acute change per cardiology noted The study has been interpreted contemporaneously by me. . Critical Care Time Critical Care Time Critical Care Time: Yes Total Critical Care Time: 60 Attestation: IVF x 3L NC, repeat assessments, review of records I attest to this time spent taking care of the patient Discharge Plan Discharge Clinical Impression: Acute hypotension Diarrhea Qualifiers: Diarrhea type: unspecified type Qualified Code(s): R19.7 - Diarrhea, unspecified Abdominal migraine Qualifiers: Intractability: intractable Qualified Code(s): G43.D1 - Abdominal migraine, intractable Leukocytosis Qualifiers: Leukocytosis type: unspecified Qualified Code(s): D72.829 - Elevated white blood cell count, unspecified Patient Disposition: Admitted As Inpatient
[2021-03-28] MEDS: 0.9 % Sodium Chloride 1,000 ML 999 ML IVCONT ×2 (08:18→08:56)
--- NOTE | 2021-03-28 08:20 | PC.NURSE ---
pt very cool/pale to the touch, unable to obtain bp at this time, attempted three times with the manual cuff, hr 79, pt alert and will answer questions appropriately, 2 bags of ns wide open on pressure bags running wide open, pt put on oxygen at 4l via nasal cannual, also having difficulty time obtaining oxygen saturations did finally get a poor wave form at 81% on room air.
--- NOTE | 2021-03-28 08:49 | PC.NURSE ---
pt continuous on falling asleep, and getting harder to wake up, need to sternal rub for a few seconds, pinpoint, and snorting respirations
[2021-03-28 09:00] LABS: Lactic Acid 3.8 mmol/L (0.5-2.0)
[2021-03-28 09:05] LABS: Venous Blood Gas Refer to POC result
[2021-03-28 09:06] LABS: VBG Base Excess -7.4 mmol/L; VBG HCO3 18 mmol/L (22-26); VBG pCO2 39 mmHg; VBG pH 7.28 (7.32-7.43); VBG pO2 36 mmHg
[2021-03-28 09:09] LABS: COVID-19 Test Negative (Negative)
[2021-03-28] MEDS: 0.9 % Sodium Chloride 1,000 ML 999 ML IV (09:34)
[2021-03-28 09:48] LABS: Basophils Absolute Auto 0.1 X10*3/uL (0.0-0.2); Basophils Percent Auto 0.4 % (0-2); Eosinophils Absolute Auto 0.1 X10*3/uL (0.0-0.4); Eosinophils Percent Auto 0.5 % (0-4); Hematocrit 47.1 % (37.0-47.0); Hemoglobin 14.3 g/dl (12.0-16.0); Imm Gran Pct Auto 1.4 % (0.0-0.4); Lymphocytes Absolute Auto 1.5 X10*3/uL (1.2-4.9); MANUAL DIFF FLAG SCAN; Mean Corpuscular HGB Conc 30.4 g/dl (31.0-35.0); Mean Corpuscular Hemoglobin 27.6 pg (27.0-33.0); Mean Corpuscular Volume 90.9 fL (80.0-98.0); Mean Platelet Volume 9.4 fL (9.4-12.3); Monocytes Absolute Auto 1.5 X10*3/uL (0.1-1.2); Monocytes Percent Auto 6.9 % (2-11); Neutrophils Absolute Auto 18.3 x10*3/uL (2.0-8.3); Neutrophils Percent Auto 83.8 % (45-73); Platelet Count 459 X10*3/uL (160-400); Red Blood Count 5.18 X10*6/uL (4.20-5.50); Red Cell Distribution Width 13.3 % (11.0-16.0); SCAN SMEAR FLAG 1; White Blood Count 21.8 X10*3/uL (4.8-10.8)
[2021-03-28 10:10] LABS: Troponin-I High Sensitivity 12.9 ng/L (<3.5-17.0)
[2021-03-28 10:14] LABS: Alanine Aminotransferase 12 U/L (0-31); Albumin Level 3.2 g/dL (3.5-5.0); Alkaline Phosphatase 64 U/L (39-117); Anion Gap 11 (12-20); Aspartate Amino Transferase 20 U/L (5-31); Bilirubin Direct 0.4 mg/dL (0.0-0.5); Bilirubin Total 0.9 mg/dL (0.0-1.0); Blood Urea Nitrogen 13 mg/dL (9-16); Calcium 8.2 mg/dL (8.4-10.2); Carbon Dioxide 24 mmol/L (22-29); Chloride 109 mmol/L (96-108); Creatinine Clr Calc Pharmacy 63.9; Estimated Glomerular Filt Rate > 60; Glucose Random 141 mg/dL (60-115); Lipase 59 U/L (8-78); Magnesium 1.7 mg/dL (1.6-2.6); Potassium 5.1 mmol/L (3.3-5.1); SLIDE REVIEW VERIFIED; Sodium 139 mmol/L (135-145); Total Protein 5.4 g/dL (6.5-8.0)
[2021-03-28 10:34] LABS: Reflex Lactate? Lactic Acid Added
--- NOTE | 2021-03-28 10:35 | PC.NURSE ---
pt reports feeling better, bp slowly increasing, pt's warming up to the touch, hands pink at this time, sating at 94% on 4l via nasal cannual,
[2021-03-28 11:21] LABS: ~Lactic Acid-LAB USE ONLY 1.9 mmol/L (0.5-2.0)
[2021-03-28] MEDS: Famotidine/PF 20 MG/2 ML VIAL IVPUSH (12:43)
[2021-03-28] MEDS: methylPREDNISolone Sod Succ 125 MG/2 ML VIAL IVPUSH (12:43)
--- NOTE | 2021-03-28 12:50 | PC.NURSE ---
pt starting to have medium amount of watery diarrhea, pt still hypertensive, pt just not herself appears to be more sluggish/drowsy appearance, no vomiting and denies pain at this time.
[2021-03-28] MEDS: Albumin Human 25 % 100 ML IV (12:55)
[2021-03-28] MEDS: cefTRIAXone sodium 1 GM in 0.9 % Sodium Chloride 50 ML IV (14:15)
[2021-03-28] MEDS: 0.9 % Sodium Chloride 500 ML IV (14:16)
--- NOTE | 2021-03-28 15:23 | PHA.MEDREC ---
Pharmacy Consult ? Medication Reconciliation Pharmacy has completed the medication reconciliation. Spoke with patient in ED who had a list of her medications. She only took Nurtec and zofran today.
--- NOTE | 2021-03-28 15:54 | PM.IMHP ---
History of Present Illness Date of Service: 03/28/21 Chief Complaint: Abdominal pain 71 year old female with history abdominal migraine , dysautonomiabdominal since 2013, she is followed at [facility] for this. She get flare up nearly every month consisting of episodes of diarrhea and vomiting with abdominal pain and profound drop in blood pressure usually into 70s, she is usually able to avoid hospiitalization if she can hydrate herself enough. She presented on this occasion with similar presentation with nausea, vomitting, abominal pain, diarrhea and systolic blood pressure od 82 and has since improved with IV fluid and presently systolic blood pressure of 118 and she is feeling better. Work up inlcude WBC of 21.8, elevated lactic acid, no fever. CT of abdomen and pelvis Review of Systems Review of Systems: Gen: no fever Resp: no sob, no cough CV: no chest, no NORIEGA, no leg edema GI: + n/v, + abd pain Neuro: No confusion Yes all other systems are reviewed and are negative [facility] Medical History Abdominal migraine Bundle branch block, left Diabetes HLD (hyperlipidemia) HTN (hypertension) Hypothyroidism Ischemic bowel disease Pulmonary embolism Family History Father CVD (cardiovascular disease) Diabetes Mother Diabetes Mitral valve prolapse Surgical History History of partial hysterectomy LAP-BAND surgery status Social History Alcohol intake: never Patient Tobacco Use Status: Never used Tobacco service: No Current occupational status: retired Meds Allergies Allergy/AdvReac Type Severity Reaction Status Date / Time atenolol Allergy Intermediate hives Verified 03/26/21 10:16 Beta-Blockers Allergy Intermediate HIVES Verified 03/26/21 10:16 (Beta-Adrenergic Bloc [BETA-BLOCKERS (BETA-ADRENERGIC BLOC] vancomycin [VANCOMYCIN] Allergy Intermediate NAUSEA & Verified 03/26/21 10:16 VOMITING Active Medications: Current Medications Pharmacy Consult (Consult Rx Perform Med Rec) 1 each MISCELLANE ONCE PRN PRN Reason: Consult order Home Medications Medication Instructions Recorded Confirmed Last Taken Type levothyroxine 112 mcg tablet 112 mcg PO MOTUWETHFRSA@0630 01/31/20 03/28/21 03/27/21 History metformin 500 mg tablet,extended 1,000 mg PO BID 01/31/20 03/28/21 03/27/21 History release 24 hr simvastatin 20 mg tablet 20 mg PO BEDTIME 01/31/20 03/28/21 03/27/21 History blood sugar diagnostic (OneTouch 04/05/20 03/26/21 Unknown History Verio test strips) dulaglutide 1.5 mg/0.5 mL 1.5 mg SUBCUT MO@0900 04/05/20 03/28/21 03/26/21 History subcutaneous pen injector (Trulicity) omeprazole 20 mg capsule,delayed 1 cap PO DAILY 04/05/20 03/28/21 03/27/21 History release rivaroxaban 20 mg tablet (Xarelto) 1 tab PO DAILY@1700 04/05/20 03/28/21 03/27/21 History hyoscyamine sulfate 0.125 mg 0.125 mg SUBLINGUAL DAILY PRN 04/17/20 03/28/21 Unknown History sublingual tablet nortriptyline 50 mg capsule 50 mg PO BEDTIME 07/17/20 03/28/21 03/27/21 History galcanezumab-gnlm 120 mg/mL 120 mg SUBCUT Q30D 11/22/20 03/28/21 03/18/21 History subcutaneous syringe (Emgality) cholecalciferol (vitamin D3) 25 25 mcg PO DAILY 03/28/21 03/28/21 03/27/21 History mcg (1,000 unit) tablet cholestyramine (with sugar) 4 gram 4 g PO SUTUTHSA@0900 03/28/21 03/28/21 03/27/21 History powder for susp in a packet fluoxetine 10 mg capsule 10 mg PO BEDTIME 03/28/21 03/28/21 03/27/21 History lisinopril 20 mg tablet 20 mg PO DAILY 03/28/21 03/28/21 03/27/21 History metoprolol succinate 25 mg 25 mg PO BEDTIME 03/28/21 03/28/21 03/27/21 History tablet,extended release 24 hr metoprolol succinate 25 mg 50 mg PO DAILY 03/28/21 03/28/21 03/27/21 History tablet,extended release 24 hr ondansetron 8 mg disintegrating 8 mg PO Q8H PRN 03/28/21 03/28/21 03/28/21 History tablet rimegepant 75 mg disintegrating 75 mg PO Q OTHER DAY PRN 03/28/21 03/28/21 03/28/21 History tablet (Nurtec ODT) Physical Exam Vital Signs and Narrative: Vital Signs: Last Vital Signs Temp 97.2 F 03/28/21 07:57 Pulse 88 03/28/21 14:54 Resp 16 03/28/21 14:54 BP 118/67 03/28/21 14:54 Pulse Ox 95 03/28/21 14:54 BMI result Body Mass Index 32.2 Const: Other: Constitutional: Alert, in no distress Mental Status: Oriented to person, place and time. Eyes: Pupils are equal, round and reactive to light. Ear, Nose and Throat: Oropharynx clear, mucous membranes moist. Ears and nose without eformities. Trachea midline. Respiratory: Clear to auscultation. No wheezing, rales or rhonchi. Cardiovascular: S1 S2 regular. No murmurs, rubs or gallops. Gastrointestinal: Abdomen soft, non-tender, non-distended. Normal bowel sounds.? Neurologic: Cranial nerves II-XII grossly intact. No focal neurological deficits. Moves all extremities spontaneously.? Skin: No rashes or lesions.? Musculoskeletal: No cyanosis or clubbing. Psychiatric: Normal mood and affect? Results Labs CBC and Chem 7: 03/29/21 04:34 03/29/21 04:34 Labs: Laboratory Results - last 24 hr 03/28/21 03/28/21 03/28/21 08:30 08:33 08:44 MCV MCH MCHC RDW Plt Count MPV Immature Gran % (Auto) Neut % (Auto) Lymph % (Auto) [place] % (Auto) Eos % (Auto) Baso % (Auto) Lymph # (Auto) [place] # (Auto) Eos # (Auto) Baso # (Auto) Abs Immat Gran (auto) Absolute Neuts (auto) Absolute Nucleated RBC Nucleated RBC % (auto) Smear Tech's Comments VBG pH 7.28 L VBG pCO2 39 VBG pO2 36 VBG HCO3 18 L VBG O2 Saturation 41.0 VBG Base Excess -7.4 Anion Gap Estim Creat Clear Calc Estimated GFR Random Glucose Lactic Acid 3.8 H* Lactic Acid F/U @ 2Hr Calcium Magnesium Total Bilirubin Direct Bilirubin AST ALT Alkaline Phosphatase Total Protein Albumin Lipase COVID-19 (ANT) Negative COVID-19 Clin Com See Note 03/28/21 03/28/21 03/28/21 09:42 09:42 11:05 MCV 90.9 MCH 27.6 MCHC 30.4 L RDW 13.3 Plt Count 459 H D MPV 9.4 Immature Gran % (Auto) 1.4 H Neut % (Auto) 83.8 H Lymph % (Auto) 7.0 L [place] % (Auto) 6.9 Eos % (Auto) 0.5 Baso % (Auto) 0.4 Lymph # (Auto) 1.5 [place] # (Auto) 1.5 H Eos # (Auto) 0.1 Baso # (Auto) 0.1 Abs Immat Gran (auto) 0.30 H Absolute Neuts (auto) 18.3 H Absolute Nucleated RBC 0.000 Nucleated RBC % (auto) 0.0 Smear Tech's Comments VERIFIED VBG pH VBG pCO2 VBG pO2 VBG HCO3 VBG O2 Saturation VBG Base Excess Anion Gap 11 L Estim Creat Clear Calc 63.9 Estimated GFR > 60 Random Glucose 141 H Lactic Acid Lactic Acid F/U @ 2Hr 1.9 Calcium 8.2 L Magnesium 1.7 Total Bilirubin 0.9 Direct Bilirubin 0.4 AST 20 ALT 12 Alkaline Phosphatase 64 D Total Protein 5.4 L Albumin 3.2 L Lipase 59 COVID-19 (ANT) COVID-19 Clin Com Imaging Radiologist's Impressions: Impressions Chest X-Ray 03/28/21 10:36 IMPRESSION: Cardiomegaly without pulmonary edema. Left lung base disease. Chest CT 03/28/21 13:43 IMPRESSION: Enlarged heart and small bilateral pleural effusions. Possible mild CHF should be considered. Gastric lap band. Small amount of ascites. Fat stranding in the left upper quadrant surrounding the colon and question mild bowel wall thickening. Clinical correlation is recommended. This finding could be better evaluated with abdominal pelvic CT scan if clinically indicated. Fleischner guidelines were followed. Assessment and Plan (1) Leukocytosis: Qualifiers: Leukocytosis type: unspecified Qualified Code(s): D72.829 - Elevated white blood cell count, unspecified Status: Acute (2) Syncope: Qualifiers: Syncope type: vasovagal syncope Qualified Code(s): R55 - Syncope and collapse Status: Acute (3) Diarrhea: Qualifiers: Diarrhea type: unspecified type Qualified Code(s): R19.7 - Diarrhea, unspecified Status: Acute (4) Acute hypotension: Status: Acute (5) Abdominal migraine: Qualifiers: Intractability: intractable Qualified Code(s): G43.D1 - Abdominal migraine, intractable Status: Acute Plan 71 year old female with history of abdominal migrain and dysautonomia presented with nausea, vomitting, abdominal pain and hypOtension characteristic of flare of abdominal migaine and dysautonomia. She also has leukocytosis and lactic acidosis, however abdominal exam is bening. 1/SIRS from abdominal migraine, dysautonomia--no source of infection, -hydrate and reassess SIRS parameters 2/Abdominal pain, n/v/diarrhea---likey part of abdominal migrain3 complex. -Get CT of abdomen to rule other causes such as ischemic colitis espeically in light of lactic acidosis 3/ Leukocytosis--I think this reactive and should improve following hydration 4/ Lactic acidosis-likely from tissue hypoxia from profound hypotension. 5/Diabetes--hold metformin, SSI 6/Hypothyroidism--leveothyroxine 7/HTN--hold Lisinopril, and Metoprolol in light of hypotension abve 8/HLD--Statin 9/History of PE--continue Xarelto DVT prophylaxis--Xarelto Quality Stroke Does the patient have a stroke diagnosis?: No VTE Prior VTE?: No VTE Risk Level:: Medical - low VTE Device Contraindication: Treatment Not Tolerated VTE Drug Contraindication: N/A - Med Ordered
[2021-03-28 16:52] LABS: Basophils Percent Auto 0.2 % (0-2); Hemoglobin 12.1 g/dl (12.0-16.0); Imm Gran Abs Auto 0.09 X10*3/uL (0.00-0.03); Imm Gran Pct Auto 0.5 % (0.0-0.4); Lymphocytes Absolute Auto 0.9 X10*3/uL (1.2-4.9); Lymphocytes Percent Auto 4.4 % (20-40); MANUAL DIFF FLAG SCAN; Mean Corpuscular Hemoglobin 27.5 pg (27.0-33.0); Mean Corpuscular Volume 88.6 fL (80.0-98.0); Mean Platelet Volume 9.5 fL (9.4-12.3); Monocytes Absolute Auto 0.8 X10*3/uL (0.1-1.2); Neutrophils Absolute Auto 17.6 x10*3/uL (2.0-8.3); Neutrophils Percent Auto 90.9 % (45-73); Platelet Count 429 X10*3/uL (160-400); Red Cell Distribution Width 13.7 % (11.0-16.0); SCAN SMEAR FLAG 1; White Blood Count 19.3 X10*3/uL (4.8-10.8)
[2021-03-28] MEDS: iohexoL 350 MG/ML 100 ML INFUS..BTL IV (17:12)
[2021-03-28] MEDS: 0.9 % Sodium Chloride 1,000 ML 100 ML IVCONT (17:46)
[2021-03-28] MEDS: Rivaroxaban 20 MG TABLET PO (17:54)
[2021-03-28 20:18] LABS: Appearance Urine CLEAR; Color Urine DK YELLOW; Glucose Urine UA NEG (NEG); Leukocyte Esterase Urine NEG (NEG); Nitrite Urine NEG (NEG); UACC Culture Trigger NO; Urine Blood TRACE (NEG); Urine Ketones NEG (NEG); Urine Protein NEG (NEG-TRACE)
--- NOTE | 2021-03-28 20:25 | PC.NURSE ---
called pharmacy for missing meds
[2021-03-28 20:45] LABS: Mucus Urine 1+ /LPF; RBC Urine 0-2 /HPF (0); Squamous Epithelial Cell Urine TRACE /LPF; WBC Urine 0 /HPF (0-4)
[2021-03-28] MEDS: metFORMIN HCl ER 500 MG TAB.ER.24H 1000 MG PO (21:26)
[2021-03-28] MEDS: Nortriptyline HCl 25 MG CAPSULE 50 MG PO (21:26)
[2021-03-28] MEDS: Atorvastatin Calcium 10 MG TABLET PO (21:29)
[2021-03-28] MEDS: FLUoxetine HCl 10 MG CAPSULE PO (21:29)
[2021-03-29 01:56] VITALS: BP 118/66; PULSE 98; RESP 24; O2SAT 98
[2021-03-29] MEDS: 0.9 % Sodium Chloride 1,000 ML 100 ML IVCONT ×2 (03:37→14:35)
[2021-03-29 04:37] VITALS: BP 116/67; PULSE 98; RESP 16; O2SAT 96
[2021-03-29 05:05] LABS: Hematocrit 34.6 % (37.0-47.0); Hemoglobin 10.6 g/dl (12.0-16.0); Mean Corpuscular HGB Conc 30.6 g/dl (31.0-35.0); Mean Corpuscular Hemoglobin 27.3 pg (27.0-33.0); Mean Corpuscular Volume 89.2 fL (80.0-98.0); Mean Platelet Volume 9.4 fL (9.4-12.3); Platelet Count 414 X10*3/uL (160-400); Red Blood Count 3.88 X10*6/uL (4.20-5.50); Red Cell Distribution Width 13.9 % (11.0-16.0); White Blood Count 14.2 X10*3/uL (4.8-10.8)
[2021-03-29 05:15] LABS: Anion Gap 15 (12-20); Blood Urea Nitrogen 17 mg/dL (9-16); Calcium 7.5 mg/dL (8.4-10.2); Carbon Dioxide 21 mmol/L (22-29); Chloride 106 mmol/L (96-108); Creatinine Clr Calc Pharmacy 63.2; Estimated Glomerular Filt Rate > 60; Glucose Random 200 mg/dL (60-115); Potassium 4.9 mmol/L (3.3-5.1); Sodium 137 mmol/L (135-145)
[2021-03-29 06:27] VITALS: BP 117/69; PULSE 94; RESP 17; O2SAT 97
[2021-03-29] MEDS: Levothyroxine Sodium 112 MCG TABLET PO (06:28)
[2021-03-29 07:12] LABS: Glucose, Whole Blood 153 mg/dL (60-115)
[2021-03-29] MEDS: Omeprazole 20 MG CAPSULE.DR PO (09:48)
[2021-03-29] MEDS: lisinopriL 20 MG TABLET PO (09:48)
[2021-03-29] MEDS: Cholecalciferol (Vitamin D3) 25 MCG TABLET PO (09:48)
[2021-03-29] MEDS: metFORMIN HCl ER 500 MG TAB.ER.24H 1000 MG PO (09:48)
--- NOTE | 2021-03-29 09:48 | PC.NURSE ---
Pt received from [facility], just moved over to overflow: Pt AOX4 and offers no complaints. Heart sounds normal and lungs clear. Pt abd soft and non-tender. Pt denies N/V/D MD Villaseñor at bedside this morning and states pt pending D/C today.
--- NOTE | 2021-03-29 12:46 | PC.NURSE ---
As per MD Villaseñor, pt was pending D/C, but only after pt seen by general surgery. RN will continue to monitor.
--- NOTE | 2021-03-29 13:00 | CA_ITS ---
Transthoracic Echocardiogram Patient (Last, First, Middle): Elsa Rhodes, Gender: Female Date of : 1950 Age: 71 Procedure Date: 03/29/2021 Procedure Type: Transthoracic Echocardiogram Location: ER Height: 162.56 cm Weight: 85.28 kg BSA: 1.91 m2 Heart Rate: bpm BP: 117 / 69 mmHg Cnc Grinder: BRAYDEN Referring MD: Toby Nelson MD Furnace Builder: Agustin Garcia MD Symptoms: NORIEGA, ?CHF Study Quality: Fair/contrast ECG Rhythm: Sinus Conclusions: - 1. Mildly dilated left ventricle with severe LV systolic dysfunction with LVEF of 20-25% 2. Moderately dilated right ventricle with low normal RV systolic function 3. Mildly dilated left atrium 4. Mild mitral regurgitation 5. Mildly elevated right ventricular systolic pressure with elevated right atrial pressures 6. No pericardial effusion Findings Procedure Information Contrast agent, definity, is being given per protocol without apparent complications. Left Ventricle Normal left ventricular cavity size. There is mildly increased left ventricular wall thickness. The left ventricular systolic function is severely decreased. The visually estimated ejection fraction is between 20 25%. There is severe global hypokinesis. There is paradoxical septal motion consistent with a left bundle branch block. Diastolic function is indeterminate on the basis of available data. Right Ventricle Moderately increased right ventricular cavity size. There is borderline right ventricular systolic function. Atria The left atrium is mildly dilated. There is no evidence of interatrial shunt. The right atrium is likely dilated. Aortic Valve Normal aortic valve structure and function. There is no aortic valve stenosis. There is no aortic valve regurgitation. Mitral Valve There is mild anterior and posterior mitral leaflet thickening. There is mild mitral valve regurgitation. There is no mitral valve stenosis. Pulmonic Valve The pulmonic valve was not well visualized. Tricuspid Valve Likely normal tricuspid valve structure and function. There is mild tricuspid valve regurgitation. Mildly elevated right atrial pressure. Mild pulmonary hypertension is present. Great Vessels All visible segments of the aorta are normal in size. The pulmonary artery was not well visualized. Venous The inferior vena cava is mildly dilated and collapses less than 50% with inspiration. Pericardium/Pleural There is no evidence of pericardial effusion. Prior Study Comparison No prior study available for comparison. Measurements 2D Linear Measurements IVSd: 1.07 0.6-0.9/0.6-1.0 cm LVIDd: 5.64 3.9-5.3/4.2-5.9 cm LVIDd Index: 2.95 2.4-3.2/2.2-3.1 cm/m2 LVIDs: 5.07 2.0-3.6 cm LVPWd: 0.99 0.7-1.1 cm Ao Root: 3.00 2.1-3.5 cm LA Diam: 4.40 2.7-3.8/3.0-4.0 cm LAIDs Index: 2.30 1.5-2.3 cm/m2 LV Mass: 288.95 67-162/88-224 g LV Mass Index: 151.28 43-95/49-115 g/m2 LVOT Diam: 1.90 3.0+(-)1.3 cm 2D Systolic Function EF 4C: 26.00 >55% EF 2C: 31.00 >55% Mitral Valve MV Pk E: 1.29 MV Decel Time: 153.00 E'Lateral: 14.40 E'Medial: 7.94 E/E' Med: 16.20 E/E' Lat: 9.00 PHT: 45.00 MVA PHT: 4.89 Decel [place]: 8.39 Aortic Valve AoV Pk Ramakrishna: 1.26 AoV Mn Ramakrishna: 0.93 AoV VTI: 0.22 AoV Pk Grad: 6.00 Aov Mn Grad: 4.00 RUBENS Cont.VTI: 2.11 LVOT LVOT Pk Ramakrishna: 0.91 LVOT Mn Ramakrishna: 0.62 LVOT VTI: 0.16 LVOT Pk Grad: 3.00 LVOT Mn Grad: 2.00 LVOT Diam: 1.90 LVOT Area: 2.84 Diastolic Function MV Pk E: 1.29 E'Medial: 7.94 E/E' Med: 16.20 E' Laterial: 14.40 E/E' Lat: 9.00 Right Ventricle TAPSE (mm): 17.30 TVS' Ramakrishna: 9.03 Tricuspid Valve TR Pk Ramakrishna: 3.01 TR Pk Grad: 36.00 RA Press: 8.00 RVSP: 44.00 Great Vessels Aorta Ao Root-2D: 3.00 2.0-3.7 cm Ao Asc: 3.20 2.1-3.4 cm Ao Arch: 3.10 Updated in Other Vendor System with Status of Final Agustin Garcia MD electronically signed on 03/29/2021 3:55:30 PM with status of Final
[2021-03-29 13:09] LABS: Glucose, Whole Blood 139 mg/dL (60-115)
--- NOTE | 2021-03-29 15:21 | MHC.CM.PN ---
Met with patient in regards to discharge planning. Patient lives with her , ambulates independently and had no services prior to coming to the hospital. No services anticipated to me needed because patient is not homebound. PCP verified. Patient has a hcp at home and will attempt to obtain a copy. Patient received 3 Covid vaccines but doesn't remember which brand. Obs notice explained and signed. Patient's will transport her home when medically stable. Continue to monitor for d/c needs.
--- NOTE | 2021-03-29 16:24 | PC.NURSE ---
General surgeon consult MD Peacock now at bedside
--- NOTE | 2021-03-29 16:31 | P.CONGS_ITS ---
History of Present Illness Consult details Consult date: 03/29/21 Narrative: 71-year-old female patient with history of intestinal migraines being treated since 2013 which causes intermittent profuse diarrhea and vomiting as well as profound hypotension.. She has been evaluated at [facility] department of Neurology and diagnosed with the intestinal migraines. He has had multiple colonoscopies in [place]. She occasionally requires Hospitalization for IV hydration when the episodes occur. She reports usually after approximately 2 hours of hydration she feels much better and her symptoms resolved. she knows now to come to the hospital as soon as the episode begins to prevent injury to her intestine. Upon presentation for the current episode she was found to have an elevated WBC and lactate level. These levels have Improved with IV hydration. She currently reports minimal to no abdominal pain. She has a prior history of lap band surgery which she reports did not work. Review of Systems Constitutional: Constitutional: Denies chills, Denies fever(s), Denies headache(s) and Reports poor appetite ENT: Reports dizziness and Denies headache(s) Cardiovascular: Cardiovascular: Denies chest pain, Denies rapid heart rate, Reports lightheadedness, Denies palpitations and Denies slow heart rate Respiratory: Respiratory: Denies chest congestion, Denies cough, Denies pain on inspiration and Denies wheezing Gastrointestinal: Gastrointestinal: Reports abdominal pain, Denies bloating, Denies constipation, Reports diarrhea, Reports nausea, Reports vomiting and Denies hematemesis Musculoskeletal: Musculoskeletal: Denies back pain, Denies arthralgias, Denies joint swelling and Denies numbness Integumentary/Breasts: Skin/Breast: Denies change in pigmentation, Denies erythema and Denies rash Neurologic: Reports dizziness, Denies headache(s) and Denies numbness Psychiatric: Psychiatric: Denies anxiety and Denies depression Endocrine: Endocrine: Denies palpitations Hematologic/Lymphatic: Hematologic/Lymphatic: Denies easy bleeding, Denies easy bruising and Denies lymphadenopathy Allergic/Immunologic: Allergic/Immunologic: Denies wheezing PMFSH Past Medical History Medical History Abdominal migraine Bundle branch block, left Diabetes HLD (hyperlipidemia) HTN (hypertension) Hypothyroidism Ischemic bowel disease Pulmonary embolism Family History Family History Father CVD (cardiovascular disease) Diabetes Mother Diabetes Mitral valve prolapse Surgical History Surgical History History of partial hysterectomy LAP-BAND surgery status Social History Social History Alcohol intake: never Patient Tobacco Use Status: Never used Tobacco Use of substances other than those prescribed or required for medical reasons: No Advance Directives: Yes Advance Directives Information Provided: No Advance Directives on File: No service: No Current occupational status: retired Meds Allergies Allergy/AdvReac Type Severity Reaction Status Date / Time atenolol Allergy Intermediate hives Verified 03/26/21 10:16 Beta-Blockers Allergy Intermediate HIVES Verified 03/26/21 10:16 (Beta-Adrenergic Bloc [BETA-BLOCKERS (BETA-ADRENERGIC BLOC] vancomycin [VANCOMYCIN] Allergy Intermediate NAUSEA & Verified 03/26/21 10:16 VOMITING Active Medications: Current Medications Acetaminophen (Acetaminophen 325 Mg Tablet) 650 mg PO Q6H PRN PRN Reason: Pain, Mild (Pain Scale 1-3) Atorvastatin Calcium (Atorvastatin Calcium 10 Mg Tablet) 10 mg PO BEDTIME [facility] Last Admin: 03/28/21 21:29 Dose: 10 mg Documented by: Fluoxetine HCl (Fluoxetine Hcl 10 Mg Capsule) 10 mg PO BEDTIME [facility] Last Admin: 03/28/21 21:29 Dose: 10 mg Documented by: Sodium Chloride (Ns) 1,000 mls @ 100 mls/hr IVCONT .Q10H [facility] Last Admin: 03/29/21 14:35 Dose: 100 mls/hr Documented by: Levothyroxine Sodium (Levothyroxine Sodium 112 Mcg Tablet) 112 mcg PO MOTUWETHFRSA@0630 [facility] Last Admin: 03/29/21 06:28 Dose: 112 mcg Documented by: Lisinopril (Lisinopril 20 Mg Tablet) 20 mg PO DAILY [facility]; Protocol Last Admin: 03/29/21 09:48 Dose: 20 mg Documented by: Metformin HCl (Metformin Hcl Er 500 Mg Tab.Er.24h) 1,000 mg PO BID [facility] Last Admin: 03/29/21 09:48 Dose: 1,000 mg Documented by: Nortriptyline HCl (Nortriptyline Hcl 25 Mg Capsule) 50 mg PO BEDTIME [facility] Last Admin: 03/28/21 21:26 Dose: 50 mg Documented by: Omeprazole (Omeprazole 20 Mg Capsule.) 20 mg PO DAILY [facility] Last Admin: 03/29/21 09:48 Dose: 20 mg Documented by: Ondansetron HCl (Ondansetron Odt 8 Mg Tab.Rapdis) 8 mg TRANSLINGU Q8H PRN PRN Reason: Nausea And Vomiting Pharmacy Consult (Consult Rx Perform Med Rec) 1 each MISCELLANE ONCE PRN PRN Reason: Consult order Rivaroxaban (Rivaroxaban 20 Mg Tablet) 20 mg PO DAILY@1700 [facility] Last Admin: 03/28/21 17:54 Dose: 20 mg Documented by: Sodium Chloride (0.9 % Sodium Chloride Flush 3 Ml Syringe) 3 ml IVFLUSH QSHIFT [facility] Last Admin: 03/29/21 14:24 Dose: Not Given Documented by: Vitamin D (Cholecalciferol (Vitamin D3) 25 Mcg Tablet) 25 mcg PO DAILY [facility] Last Admin: 03/29/21 09:48 Dose: 25 mcg Documented by: Home Medications Medication Instructions Recorded Confirmed Last Taken Type levothyroxine 112 mcg tablet 112 mcg PO MOTUWETHFRSA@0630 01/31/20 03/28/21 03/27/21 History metformin 500 mg tablet,extended 1,000 mg PO BID 01/31/20 03/28/21 03/27/21 History release 24 hr simvastatin 20 mg tablet 20 mg PO BEDTIME 01/31/20 03/28/21 03/27/21 History blood sugar diagnostic (OneTouch 04/05/20 03/26/21 Unknown History Verio test strips) dulaglutide 1.5 mg/0.5 mL 1.5 mg SUBCUT MO@0900 04/05/20 03/28/21 03/26/21 History subcutaneous pen injector (Trulicity) omeprazole 20 mg capsule,delayed 1 cap PO DAILY 04/05/20 03/28/21 03/27/21 History release rivaroxaban 20 mg tablet (Xarelto) 1 tab PO DAILY@1700 04/05/20 03/28/21 03/27/21 History hyoscyamine sulfate 0.125 mg 0.125 mg SUBLINGUAL DAILY PRN 04/17/20 03/28/21 Unknown History sublingual tablet nortriptyline 50 mg capsule 50 mg PO BEDTIME 07/17/20 03/28/21 03/27/21 History galcanezumab-gnlm 120 mg/mL 120 mg SUBCUT Q30D 11/22/20 03/28/21 03/18/21 History subcutaneous syringe (Emgality) cholecalciferol (vitamin D3) 25 25 mcg PO DAILY 03/28/21 03/28/21 03/27/21 Histo ry mcg (1,000 unit) tablet cholestyramine (with sugar) 4 gram 4 g PO SUTUTHSA@0900 03/28/21 03/28/21 03/27/21 History powder for susp in a packet fluoxetine 10 mg capsule 10 mg PO BEDTIME 03/28/21 03/28/21 03/27/21 History lisinopril 20 mg tablet 20 mg PO DAILY 03/28/21 03/28/21 03/27/21 History metoprolol succinate 25 mg 25 mg PO BEDTIME 03/28/21 03/28/21 03/27/21 History tablet,extended release 24 hr metoprolol succinate 25 mg 50 mg PO DAILY 03/28/21 03/28/21 03/27/21 History tablet,extended release 24 hr ondansetron 8 mg disintegrating 8 mg PO Q8H PRN 03/28/21 03/28/21 03/28/21 History tablet rimegepant 75 mg disintegrating 75 mg PO Q OTHER DAY PRN 03/28/21 03/28/21 03/28/21 History tablet (Nurtec ODT) Physical Exam Vital Signs: Vital Signs: Last Vital Signs Temp 98.2 F 03/28/21 19:10 Pulse 94 03/29/21 06:27 Resp 17 03/29/21 06:27 BP 117/69 03/29/21 06:27 Pulse Ox 97 03/29/21 06:27 BMI result Body Mass Index 32.2 Const: General: cooperative, comfortable and well developed Nutritional Appearance: well nourished Orientation/consciousness: patient oriented x3 Eyes: Sclerae: sclerae normal EOM: EOMs intact bilaterally Neck: Neck: Yes normal visual inspection Resp: Effort & Inspection: normal respiratory effort, no cough, no respiratory distress and no stridor Cardio: Jugular venous distension: no JVD GI: Inspection: Yes normal to inspection Palpation (GI): Soft to palpation, Tenderness to palpation present (GI) in the LUQ and in the RUQ; Negative for with no rebound tenderness, no guarding and not rigid Abdomen image: 1. Palpable mass in the right upper quadrant suggestive of an incisional hernia following lap band surgery. Skin: General skin exam: no rashes or lesions noted and dry skin Rashes: no rashes Neuro: General: patient oriented x3 and no focal motor deficits Extrem: General: Yes full ROM and Yes no clubbing, cyanosis or edema Psych: Appearance: grossly normal Results Labs Result diagrams: 03/29/21 04:34 03/29/21 04:34 Labs: Abnormal lab results 03/28/21 03/29/21 03/29/21 Range/Units 16:40 04:34 04:34 WBC 19.3 H 14.2 H (4.8-10.8) X10*3/uL RBC 3.88 L (4.20-5.50) X10*6/uL Hgb 10.6 L (12.0-16.0) g/dl Hct 34.6 L (37.0-47.0) % MCHC 30.6 L (31.0-35.0) g/dl Plt Count 429 H 414 H (160-400) X10*3/uL Immature Gran % (Auto) 0.5 H (0.0-0.4) % Neut % (Auto) 90.9 H (45-73) % Lymph % (Auto) 4.4 L (20-40) % Lymph # (Auto) 0.9 L (1.2-4.9) X10*3/uL Abs Immat Gran (auto) 0.09 H (0.00-0.03) X10*3/uL Absolute Neuts (auto) 17.6 H (2.0-8.3) x10*3/uL Carbon Dioxide 21 L (22-29) mmol/L BUN 17 H (9-16) mg/dL POC Glucose (60-115) mg/dL Random Glucose 200 H (60-115) mg/dL Calcium 7.5 L D (8.4-10.2) mg/dL 03/29/21 03/29/21 Range/Units 07:08 13:05 WBC (4.8-10.8) X10*3/uL RBC (4.20-5.50) X10*6/uL Hgb (12.0-16.0) g/dl Hct (37.0-47.0) % MCHC (31.0-35.0) g/dl Plt Count (160-400) X10*3/uL Immature Gran % (Auto) (0.0-0.4) % Neut % (Auto) (45-73) % Lymph % (Auto) (20-40) % Lymph # (Auto) (1.2-4.9) X10*3/uL Abs Immat Gran (auto) (0.00-0.03) X10*3/uL Absolute Neuts (auto) (2.0-8.3) x10*3/uL Carbon Dioxide (22-29) mmol/L BUN (9-16) mg/dL POC Glucose 153 H 139 H (60-115) mg/dL Random Glucose (60-115) mg/dL Calcium (8.4-10.2) mg/dL Short CBC 03/28/21 03/29/21 Range/Units 16:40 04:34 WBC 19.3 H 14.2 H (4.8-10.8) X10*3/uL Hgb 12.1 10.6 L (12.0-16.0) g/dl Hct 39.0 34.6 L (37.0-47.0) % Plt Count 429 H 414 H (160-400) X10*3/uL BMP 03/29/21 04:34 Sodium 137 Potassium 4.9 Chloride 106 Carbon Dioxide 21 L BUN 17 H Creatinine 0.85 Calcium 7.5 L D Urine 03/28/21 Range/Units 20:12 Urine Color DK YELLOW Urine Appearance CLEAR Urine pH 5.0 (5.0-8.0) Ur Specific [place] 1.020 (1.005-1.025) Urine Protein NEG (NEG-TRACE) MG/DL Urine Glucose (UA) NEG (NEG) MG/DL All other labs normal. Assessment and Plan (1) Diarrhea: Qualifiers: Diarrhea type: unspecified type Qualified Code(s): R19.7 - Diarrhea, unspecified Status: Acute (2) Acute hypotension: Status: Acute (3) Colitis: Status: Acute Plan 71-year-old female patient presenting with intermittent episodes of profuse diarrhea and vomiting resulting in hypotension and a low-flow state. Review of her CT abdomen and pelvis reveals colonic thickening from splenic flexure down to the sigmoid which may either be infectious or ischemic. There is no evidence of free air. A small amount of free fluid is identified in the pelvis. Patient is already improved with IV hydration. Recommend supportive care and follow-up with her car repairer apprentice upon discharge possible repeat colonoscopy as an outpatient. Will follow along during her hospitalization To assure resolution of symptoms. Procedures Date of Service Date of Service: 03/29/21
--- NOTE | 2021-03-29 17:20 | PC.NURSE ---
Pt D/C from ED Ba with instructions. Pt states understanding and denies any further questions. IV removed prior to D/C. Pt ambulated to main ER entrance for ride home.
== END 2021-03-29 17:46 | disposition home or self-care (01) ==
LOC: HO.ED 13:49 → HO.EDOVER 16:27
PROVIDERS: Admitting Provider Internal Medicine; Emergency Provider Emergency Medicine; PCP Internal Medicine; Visit Provider Internal Medicine
DX: R19.7 Diarrhea, unspecified (principal); G43.D1 Abdominal migraine, intractable; R55 Syncope and collapse; I95.9 Hypotension, unspecified; I44.7 Left bundle-branch block, unspecified; I26.99 Other pulmonary embolism without acute cor pulmonale; E11.9 Type 2 diabetes mellitus without complications; E03.9 Hypothyroidism, unspecified; E78.5 Hyperlipidemia, unspecified; E78.00 Pure hypercholesterolemia, unspecified; D72.829 Elevated white blood cell count, unspecified; R74.02 Elevation of levels of lactic acid dehydrogenase [LDH]; R06.00 Dyspnea, unspecified; Z20.822 Contact with and (suspected) exposure to COVID-19; Z98.84 Bariatric surgery status; Z83.3 Family history of diabetes mellitus; Z82.49 Family history of ischemic heart disease and other diseases of the circulatory system; Z88.1 Allergy status to other antibiotic agents; Z88.8 Allergy status to other drugs, medicaments and biological substances; Z79.4 Long term (current) use of insulin; Z79.84 Long term (current) use of oral hypoglycemic drugs; Z79.01 Long term (current) use of anticoagulants; Z79.899 Other long term (current) drug therapy
CPT/HCPCS: 36415; 71045; 71250; 74178; 80048; 80076; 81001; 82803; 82947; 83605; 83690; 83735; 84484; 85025; 85027; 87040; 87635; 93005; 93306; 96361; 96365; 96375; 99218; 99285; 99291; J0696; J2930; P9047; Q9957; Q9967

== ENCOUNTER → 2021-03-28 | Outpatient (REF) | payer MEDICARE, BC, SELFPAY | LOC: HO.CARD | PROVIDERS: Visit Provider Internal Medicine Cardiovascular Disease | DX: R06.00 Dyspnea, unspecified (principal); Z79.899 Other long term (current) drug therapy | CPT/HCPCS: 93005; 99212 ==

== ENCOUNTER → 2021-04-09 12:51 | Outpatient (BNVA) | payer MEDICARE, SELFPAY | PROVIDERS: PCP Internal Medicine; Visit Provider Internal Medicine Cardiovascular Disease | DX: I42.9 Cardiomyopathy, unspecified (principal); I50.9 Heart failure, unspecified; Z79.899 Other long term (current) drug therapy | CPT/HCPCS: 99212 ==

== ENCOUNTER 2021-04-10 11:07 | Outpatient (REF) | payer MEDICARE, SELFPAY ==
[2021-04-10 11:58] LABS: Hematocrit 33.8 % (37.0-47.0); Hemoglobin 10.4 g/dl (12.0-16.0); Mean Corpuscular HGB Conc 30.8 g/dl (31.0-35.0); Mean Corpuscular Hemoglobin 26.8 pg (27.0-33.0); Mean Corpuscular Volume 87.1 fL (80.0-98.0); Mean Platelet Volume 9.5 fL (9.4-12.3); Platelet Count 409 X10*3/uL (160-400); Red Blood Count 3.88 X10*6/uL (4.20-5.50); Red Cell Distribution Width 13.8 % (11.0-16.0); White Blood Count 9.5 X10*3/uL (4.8-10.8)
[2021-04-10 12:03] LABS: INTERNATIONAL NORM RATIO 2.3 (0.9-1.1)
[2021-04-10 12:07] LABS: COVID-19 Test Negative (Negative)
[2021-04-10 12:35] LABS: Anion Gap 12 (12-20); Blood Urea Nitrogen 15 mg/dL (9-16); Calcium 9.4 mg/dL (8.4-10.2); Carbon Dioxide 33 mmol/L (22-29); Chloride 98 mmol/L (96-108); Estimated Glomerular Filt Rate > 60; Glucose Random 145 mg/dL (60-115); Potassium 4.4 mmol/L (3.3-5.1); Sodium 139 mmol/L (135-145)
== END 2021-04-10 11:08 | disposition home or self-care (01) ==
LOC: HO.LAB 11:07
PROVIDERS: PCP Internal Medicine; Visit Provider Internal Medicine Cardiovascular Disease
DX: Z20.822 Contact with and (suspected) exposure to COVID-19 (principal); I42.9 Cardiomyopathy, unspecified; I44.7 Left bundle-branch block, unspecified; I50.9 Heart failure, unspecified; R06.00 Dyspnea, unspecified
CPT/HCPCS: 36415; 80048; 85027; 85610; 87635

== ENCOUNTER → 2021-04-19 15:16 | Outpatient (BNVA) | payer MEDICARE, SELFPAY | PROVIDERS: PCP Internal Medicine; Referring Provider Internal Medicine; Visit Provider Nurse Practitioner Family | DX: I44.7 Left bundle-branch block, unspecified (principal); R00.2 Palpitations | CPT/HCPCS: 93005 ==

== ENCOUNTER → 2021-04-23 06:56 | Outpatient (REF) | payer MEDICARE, SELFPAY ==
--- NOTE | 2021-04-23 07:00 | HM_ITS ---
conclusion: 1. Patient was monitored for total period of 3 days and 1 hour 2. Baseline was normal sinus rhythm with average heart rate of 90 beats per minute 3. No significant pauses or bradycardia noted 4. Very rare ectopy is noted 5. 1 patient reported event correlated with sinus rhythm MTDD
== END ==
LOC: HO.CARD 06:56
PROVIDERS: PCP Internal Medicine; Visit Provider Nurse Practitioner Family
DX: I44.7 Left bundle-branch block, unspecified (principal); R00.2 Palpitations
CPT/HCPCS: 93225; 93242

== ENCOUNTER → 2021-06-18 13:14 | Outpatient (BNVA) | payer MEDICARE, SELFPAY | PROVIDERS: PCP Internal Medicine; Referring Provider Internal Medicine; Visit Provider Internal Medicine Cardiovascular Disease | DX: I42.9 Cardiomyopathy, unspecified (principal); I10 Essential (primary) hypertension | CPT/HCPCS: 99212 ==

== ENCOUNTER → 2021-08-20 07:25 | Outpatient (REF) | payer MEDICARE, SELFPAY ==
--- NOTE | 2021-08-20 07:34 | CA_ITS ---
Transthoracic Echocardiogram Patient (Last, First, Middle): Elsa Rhodes, Gender: Female Date of : 1950 Age: 71 Procedure Date: 08/20/2021 Procedure Type: Transthoracic Echocardiogram Location: OP Height: 162.56 cm Weight: 81.19 kg BSA: 1.87 m2 Heart Rate: bpm BP: 120 / 70 mmHg Carton Inspector: TO/VH Referring MD: Toby Nelson MD Symptoms: I42.9 - Cardiomyopathy, unspecified Study Quality: Fair/Contrast Conclusions: - Normal left ventricular cavity size. The left ventricular systolic function is moderate to severely decreased. The visually estimated ejection fraction is between 25-30%. - Spectral Doppler is indicative of an impaired relaxation filling pattern. E/E prime ratio is >15, consistent with elevated filling pressures. - Normal right ventricular cavity size and systolic function. There is an ICD wire seen in the right ventricle. Findings Procedure Information Contrast agent, definity, is being given per protocol without apparent complications. Left Ventricle Normal left ventricular cavity size. The left ventricular systolic function is moderate to severely decreased. The visually estimated ejection fraction is between 25-30%. Abnormal diastolic function is noted. Spectral Doppler is indicative of an impaired relaxation filling pattern. E/E prime ratio is >15, consistent with elevated filling pressures. LV is dilated. Right Ventricle Normal right ventricular cavity size and systolic function. There is an ICD wire seen in the right ventricle. Atria The left atrium is mildly dilated. Aortic Valve There is a normal trileaflet aortic valve. There is no aortic valve stenosis. There is no aortic valve regurgitation. Mitral Valve The mitral valve appears normal. There is mild mitral annular calcification. There is trace mitral valve regurgitation. There is no mitral valve stenosis. Pulmonic Valve Normal pulmonic valve structure and function. There is trace pulmonic valve regurgitation. Tricuspid Valve Normal tricuspid valve structure and function. There is mild tricuspid valve regurgitation. Normal right atrial pressure. There is no evidence of pulmonary hypertension. Great Vessels All visible segments of the aorta are normal in size. The visualized portions of the pulmonary artery and branches are normal. Venous The inferior vena cava is normal in size and collapses greater than 50% with inspiration. Pericardium/Pleural There is no evidence of pericardial effusion. Prior Study Comparison Changes noted compared to prior study dated: 03/29/2021. LVEF marginally improved. RV function improved. Measurements 2D Linear Measurements IVSd: 1.11 0.6-0.9/0.6-1.0 cm LVIDd: 6.42 3.9-5.3/4.2-5.9 cm LVIDd Index: 3.43 2.4-3.2/2.2-3.1 cm/m2 LVIDs: 5.43 2.0-3.6 cm LVPWd: 0.86 0.7-1.1 cm LA Diam: 3.90 2.7-3.8/3.0-4.0 cm LAIDs Index: 2.09 1.5-2.3 cm/m2 LV Mass: 338.36 67-162/88-224 g LV Mass Index: 180.94 43-95/49-115 g/m2 LVOT Diam: 2.20 3.0+(-)1.3 cm 2D Systolic Function EF 4C: 26.50 >55% EF 2C: 17.40 >55% Mitral Valve MV Pk E: 0.50 MV PK A: 0.94 MV Decel Time: 195.00 E/A: 0.50 E'Lateral: 2.39 E'Medial: 3.92 E/E' Med: 12.70 E/E' Lat: 20.80 PHT: 57.00 MVA PHT: 3.86 Decel [place]: 2.56 Aortic Valve AoV Pk Ramakrishna: 1.12 AoV Mn Ramakrishna: 0.78 AoV VTI: 0.27 AoV Pk Grad: 5.00 Aov Mn Grad: 3.00 RUBENS Cont.VTI: 1.66 LVOT LVOT Pk Ramakrishna: 0.52 LVOT Mn Ramakrishna: 0.37 LVOT VTI: 0.12 LVOT Pk Grad: 1.00 LVOT Mn Grad: 1.00 LVOT Diam: 2.20 LVOT Area: 3.80 Diastolic Function MV Pk E: 0.50 MV Pk A: 0.94 E/A: 0.50 E'Medial: 3.92 E/E' Med: 12.70 E' Laterial: 2.39 E/E' Lat: 20.80 Right Ventricle TAPSE (mm): 19.50 TVS' Ramakrishna: 11.00 Tricuspid Valve TR Pk Ramakrishna: 2.51 TR Pk Grad: 25.00 RA Press: 3.00 RVSP: 28.00 Great Vessels Aorta Sinus of Valsalva: 3.53 2.0-3.[address] [place]: 2.45 1.7-3.4 cm Ao Asc: 2.90 2.1-3.4 cm Updated in Other Vendor System with Status of Final Toby Nelson MD electronically signed on 08/22/2021 11:08:45 AM with status of Final
== END ==
LOC: HO.CARD 07:25
PROVIDERS: PCP Internal Medicine; Visit Provider Internal Medicine Cardiovascular Disease
DX: I42.9 Cardiomyopathy, unspecified (principal)
CPT/HCPCS: 93306; Q9957

== ENCOUNTER → 2021-08-23 10:57 | Outpatient (BNVA) | payer MEDICARE, SELFPAY | PROVIDERS: PCP Internal Medicine; Referring Provider Internal Medicine; Visit Provider Internal Medicine Cardiovascular Disease | DX: I42.8 Other cardiomyopathies (principal); Z79.899 Other long term (current) drug therapy | CPT/HCPCS: 99212 ==

== ENCOUNTER → 2021-12-05 14:41 | Outpatient (BNVA) | payer MEDICARE, SELFPAY | PROVIDERS: PCP Internal Medicine; Referring Provider Internal Medicine; Visit Provider Internal Medicine Cardiovascular Disease | DX: I42.8 Other cardiomyopathies (principal); I44.7 Left bundle-branch block, unspecified; Z79.899 Other long term (current) drug therapy | CPT/HCPCS: 93005; 99212 ==

== ENCOUNTER → 2021-12-31 07:13 | Outpatient (REF) | payer MEDICARE, SELFPAY ==
--- NOTE | 2021-12-31 07:12 | CA_ITS ---
Transthoracic Echocardiogram Patient (Last, First, Middle): Elsa Rhodes, Gender: Female Date of : 1950 Age: 71 Procedure Date: 12/31/2021 Procedure Type: Transthoracic Echocardiogram Location: OP Height: 160.02 cm Weight: 83.01 kg BSA: 1.86 m2 Heart Rate: bpm BP: 122 / 67 mmHg Athletic Turf Worker: BRAYDEN Referring MD: Toby Nelson MD Culinary Arts Teacher: Toby Nelson MD Symptoms: I42.9 - Cardiomyopathy, unspecified Study Quality: Technically Difficult, contrast used Conclusions: - Normal left ventricular cavity size. There is mildly increased left ventricular wall thickness. The left ventricular systolic function is low normal. The visually estimated ejection fraction is between 50-55%. Findings Procedure Information Contrast agent, definity, is being given per protocol without apparent complications. Left Ventricle Normal left ventricular cavity size. There is mildly increased left ventricular wall thickness. The left ventricular systolic function is low normal. The visually estimated ejection fraction is between 50-55%. Diastolic function is indeterminate on the basis of available data. Wall Motion Rest Echo Findings The anterolateral wall is hypokinetic. Right Ventricle Normal right ventricular cavity size and systolic function. Pericardium/Pleural There is no evidence of pericardial effusion. Prior Study Comparison Changes noted compared to prior study dated: 08/20/2021. EF improved to 50 55%. Measurements 2D Linear Measurements IVSd: 1.09 0.6-0.9/0.6-1.0 cm LVIDd: 4.86 3.9-5.3/4.2-5.9 cm LVIDd Index: 2.61 2.4-3.2/2.2-3.1 cm/m2 LVIDs: 3.49 2.0-3.6 cm LVPWd: 0.99 0.7-1.1 cm LV Mass: 227.79 67-162/88-224 g LV Mass Index: 122.47 43-95/49-115 g/m2 LVOT Diam: 2.20 3.0+(-)1.3 cm 2D Systolic Function EF 4C: 41.50 >55% EF 2C: 40.90 >55% LVOT LVOT Pk Ramakrishna: 0.76 LVOT Mn Ramakrishna: 0.54 LVOT VTI: 0.14 LVOT Pk Grad: 2.00 LVOT Mn Grad: 1.00 LVOT Diam: 2.20 LVOT Area: 3.80 Updated in Other Vendor System with Status of Final Toby Nelson MD electronically signed on 01/01/2022 11:33:22 AM with status of Final
== END ==
LOC: HO.CARD 07:13
PROVIDERS: PCP Internal Medicine; Visit Provider Internal Medicine Cardiovascular Disease
DX: I42.9 Cardiomyopathy, unspecified (principal)
CPT/HCPCS: 93308; Q9957

== ENCOUNTER → 2022-04-15 09:00 | Outpatient (BNVA) | payer MEDICARE, SELFPAY | PROVIDERS: PCP Internal Medicine; Referring Provider Internal Medicine; Visit Provider Internal Medicine Cardiovascular Disease | DX: I42.9 Cardiomyopathy, unspecified (principal); I44.7 Left bundle-branch block, unspecified | CPT/HCPCS: 99212 ==

== ENCOUNTER → 2022-05-02 10:53 | Outpatient (REF) | payer MEDICARE, SELFPAY ==
--- NOTE | 2022-05-02 10:58 | CA_ITS ---
Transthoracic Echocardiogram Patient (Last, First, Middle): Elsa Rhodes, Gender: Female Date of : 1950 Age: 72 Procedure Date: 05/02/2022 Procedure Type: Transthoracic Echocardiogram Location: OP Height: 162.56 cm Weight: 84.37 kg BSA: 1.90 m2 Heart Rate: 74 bpm BP: 130 / 70 mmHg Glass Melt Operator: PADMA Referring MD: Toby Nelson MD Symptoms: I42.9 - Cardiomyopathy, unspecified Study Quality: Adequate ECG Rhythm: Sinus Conclusions: - Normal left ventricular size and systolic function. There is mildly increased left ventricular wall thickness. The visually estimated ejection fraction is between 55-60%. - Mildly increased right ventricular cavity size. There is normal right ventricular systolic function. Findings Left Ventricle Normal left ventricular size and systolic function. There is mildly increased left ventricular wall thickness. The visually estimated ejection fraction is between 55-60%. There is no evidence of regional wall motion abnormalities. Diastolic function is indeterminate on the basis of available data. Right Ventricle Mildly increased right ventricular cavity size. There is normal right ventricular systolic function. Atria The left atrium is normal in size. The right atrium is normal in size. Aortic Valve Normal aortic valve structure and function. There is no aortic valve stenosis. There is no aortic valve regurgitation. Mitral Valve Normal mitral valve structure and function. There is no mitral valve regurgitation. There is no mitral valve stenosis. Pulmonic Valve Normal pulmonic valve structure and function. There is no pulmonic valve regurgitation. Tricuspid Valve Normal tricuspid valve structure and function. Normal right atrial pressure. There is no evidence of pulmonary hypertension. Great Vessels All visible segments of the aorta are normal in size. The visualized portions of the pulmonary artery and branches are normal. Venous The inferior vena cava is normal in size and collapses greater than 50% with inspiration. Pericardium/Pleural There is no evidence of pericardial effusion. Prior Study Comparison Changes noted compared to prior study dated: 12/31/2021. LVEF is back to normal. RV appears mildly dilated but preserved function. Measurements 2D Linear Measurements IVSd: 1.09 0.6-0.9/0.6-1.0 cm LVIDd: 3.43 3.9-5.3/4.2-5.9 cm LVIDd Index: 1.81 2.4-3.2/2.2-3.1 cm/m2 LVIDs: 2.58 2.0-3.6 cm LVPWd: 1.24 0.7-1.1 cm LA Diam: 3.60 2.7-3.8/3.0-4.0 cm LAIDs Index: 1.89 1.5-2.3 cm/m2 LV Mass: 156.78 67-162/88-224 g LV Mass Index: 82.52 43-95/49-115 g/m2 LVOT Diam: 2.20 3.0+(-)1.3 cm 2D Systolic Function EF 4C: 55.80 >55% EF 2C: 49.70 >55% EF BiP: 50.30 >55% Mitral Valve MV Pk E: 0.51 MV PK A: 0.73 MV Decel Time: 290.00 E/A: 0.70 E'Lateral: 4.46 E'Medial: 3.70 E/E' Med: 13.90 E/E' Lat: 11.50 PHT: 85.00 MVA PHT: 2.59 Decel [place]: 1.77 Aortic Valve AoV Pk Ramakrishna: 1.23 AoV Mn Ramakrishna: 0.91 AoV VTI: 0.24 AoV Pk Grad: 6.00 Aov Mn Grad: 4.00 RUBENS Cont.VTI: 2.26 LVOT LVOT Pk Ramakrishna: 0.72 LVOT Mn Ramakrishna: 0.55 LVOT VTI: 0.14 LVOT Pk Grad: 2.00 LVOT Mn Grad: 1.00 LVOT Diam: 2.20 LVOT Area: 3.80 Diastolic Function MV Pk E: 0.51 MV Pk A: 0.73 E/A: 0.70 E'Medial: 3.70 E/E' Med: 13.90 E' Laterial: 4.46 E/E' Lat: 11.50 Right Ventricle TAPSE (mm): 18.70 TVS' Ramakrishna: 9.36 Tricuspid Valve TR Pk Ramakrishna: 2.10 TR Pk Grad: 18.00 RA Press: 8.00 RVSP: 26.00 Great Vessels Aorta Sinus of Valsalva: 3.10 2.0-3.5 cm Ao Asc: 3.10 2.1-3.4 cm Pulmonary Valve PV Pk Ramakrishna: 0.90 Peak PV Grad: 3.00 Updated in Other Vendor System with Status of Final Toby Nelson MD electronically signed on 05/06/2022 1:43:47 PM with status of Final
== END ==
LOC: HO.CARD 10:53
PROVIDERS: PCP Internal Medicine; Visit Provider Internal Medicine Cardiovascular Disease
DX: I42.9 Cardiomyopathy, unspecified (principal)
CPT/HCPCS: 93306

== ENCOUNTER → 2022-07-22 14:10 | Outpatient (BNVA) | payer MEDICARE, SELFPAY | PROVIDERS: PCP Internal Medicine; Referring Provider Internal Medicine; Visit Provider Internal Medicine Cardiovascular Disease | DX: I44.7 Left bundle-branch block, unspecified (principal); I11.0 Hypertensive heart disease with heart failure; I50.9 Heart failure, unspecified | CPT/HCPCS: 93005; 99212 ==

== ENCOUNTER → 2022-08-19 23:59 | Outpatient (BNV) | payer MEDICARE, SELFPAY ==
--- NOTE | 2022-09-03 20:55 | MHC.OFFVIS ---
Intake Intake Visit Reasons: Remote HF Monitoring- [employer] Allergies atenolol Allergy (Intermediate, Verified 07/22/22 14:41) hives Beta-Blockers (Beta-Adrenergic Bloc [BETA-BLOCKERS (BETA-ADRENERGIC BLOC] Allergy (Intermediate, Verified 07/22/22 14:41) HIVES vancomycin [VANCOMYCIN] Allergy (Intermediate, Verified 07/22/22 14:41) NAUSEA & VOMITING PFSH Medical History (Updated 07/22/22 @ 15:12 by Toby Nelson MD) Abdominal migraine Bundle branch block, left Diabetes HLD (hyperlipidemia) HTN (hypertension) Hypothyroidism Ischemic bowel disease Pulmonary embolism Surgical History History of partial hysterectomy LAP-BAND surgery status Status post biventricular cardiac pacemaker insertion Family History Father CVD (cardiovascular disease) Diabetes Mother Diabetes Mitral valve prolapse Social History Alcohol intake: never Patient Tobacco Use Status: Never used Tobacco service: No Current occupational status: retired Office Procedures Cardiac Device Check Cardiac Device Check Details: HF monitoring Stable thoracic impedance. BiV pacemaker. [id number] Cardiac Device Interrogation, cardio physiologic monitor Procedure code (CPT) selection complete Assessment & Plan Assessment & Plan (1) Chronic heart failure: Code(s): I50.9 - Heart failure, unspecified Coding Level of Care Code Procedure Only Diagnoses Chronic heart failure I50.9 CPT Codes Cardiac Device Check - Cardiac Device 15: [id number] Cardiac Device Interrogation, cardio physiologic monitor ([id number])
== END ==
PROVIDERS: PCP Internal Medicine; Visit Provider Internal Medicine Cardiovascular Disease
DX: I50.9 Heart failure, unspecified (principal)
CPT/HCPCS: 93297

== ENCOUNTER → 2022-08-19 23:59 | Outpatient (BNV) | payer MEDICARE, SELFPAY ==
--- NOTE | 2022-09-03 10:11 | MHC.OFFVIS ---
Intake Intake Visit Reasons: Remote ICD Check- [employer] Allergies atenolol Allergy (Intermediate, Verified 07/22/22 14:41) hives Beta-Blockers (Beta-Adrenergic Bloc [BETA-BLOCKERS (BETA-ADRENERGIC BLOC] Allergy (Intermediate, Verified 07/22/22 14:41) HIVES vancomycin [VANCOMYCIN] Allergy (Intermediate, Verified 07/22/22 14:41) NAUSEA & VOMITING PFSH Medical History (Updated 07/22/22 @ 15:12 by Toby Nelson MD) Abdominal migraine Bundle branch block, left Diabetes HLD (hyperlipidemia) HTN (hypertension) Hypothyroidism Ischemic bowel disease Pulmonary embolism Surgical History History of partial hysterectomy LAP-BAND surgery status Status post biventricular cardiac pacemaker insertion Family History Father CVD (cardiovascular disease) Diabetes Mother Diabetes Mitral valve prolapse Social History Alcohol intake: never Patient Tobacco Use Status: Never used Tobacco service: No Current occupational status: retired Office Procedures Cardiac Device Check Cardiac Device Check Details: BiV AICD Battery life 8 years. V paced 98%. No new alerts. [id number] Cardiac Device Interrogation, pacemaker or defibrillator Procedure code (CPT) selection complete Assessment & Plan Assessment & Plan (1) Chronic heart failure: Code(s): I50.9 - Heart failure, unspecified Coding Level of Care Code Procedure Only Diagnoses Chronic heart failure I50.9 CPT Codes Cardiac Device Check - Cardiac Device 14: [id number] Cardiac Device Interrogation, pacemaker or defibrillator ([id number])
== END ==
PROVIDERS: PCP Internal Medicine; Visit Provider Internal Medicine Cardiovascular Disease
DX: I50.9 Heart failure, unspecified (principal); Z95.810 Presence of automatic (implantable) cardiac defibrillator
CPT/HCPCS: 93295

== ENCOUNTER 2022-10-23 11:11 | Outpatient (AMB) | payer MEDICARE, SELFPAY ==
[2022-10-23 11:13] VITALS: BP 114/72; PULSE 69; BMI 31.8
--- NOTE | 2022-10-23 11:13 | MHC.OFFVIS ---
Intake Vital Signs 10/23/22 11:13 Height 5 ft 4 in Weight 185 lb 3.013 oz BMI 31.8 BP 114/72 Blood Pressure Location Rt brachial Position Sitting Pulse 69 Pulse Source Pulse Oximeter Intake Visit Reasons: 3 month follow up Intake Note: 3 month f/u Marbleizing Machine Tender Required: No Allergies atenolol Allergy (Intermediate, Verified 10/23/22 11:17) hives Beta-Blockers (Beta-Adrenergic Bloc [BETA-BLOCKERS (BETA-ADRENERGIC BLOC] Allergy (Intermediate, Verified 10/23/22 11:17) HIVES vancomycin [VANCOMYCIN] Allergy (Intermediate, Verified 10/23/22 11:17) NAUSEA & VOMITING Medication List - Last Reconciled 10/23/22 by Toby Nelson MD blood sugar diagnostic ([employer] Verio test strips) use as directed to test once daily chlorhexidine gluconate 0.12% mL PO DAILY cholecalciferol (vitamin D3) 25 mcg PO DAILY cholestyramine (with sugar) 4 gram 4 grams PO SUTUTHSA@0900 empagliflozin (Jardiance) 10 mg PO DAILY fluoride (sodium) 1.1% PO DAILY fluoxetine 10 mg PO BEDTIME furosemide (Lasix) 20 mg PO DAILY galcanezumab-gnlm (Emgality) 120 mg subcut Q30D hyoscyamine sulfate 0.125 mg sublingual DAILY PRN levothyroxine 112 mcg PO MOTUWETHFRSA@0630 metformin ER 1,000 mg PO BID metoprolol succinate ER 25 mg PO DAILY nortriptyline 50 mg PO BEDTIME omeprazole 20 mg PO DAILY ondansetron 8 mg PO Q8H PRN rimegepant (Nurtec ODT) 75 mg PO Q OTHER DAY PRN rivaroxaban (Xarelto) 20 mg PO DAILY@1700 sacubitril-valsartan 49-51 mg (Entresto) 1 tab PO BID 90 days simvastatin 20 mg PO BEDTIME tirzepatide 5 mg subcut QWEEK HPI HPI Comments History of Present Illness Details 72-year-old female who is here for follow-up. She has background history of nonischemic cardiomyopathy which was thought to be related to left bundle-branch block. She underwent cardiac catheterization which did not show any coronary disease. She underwent WAREHOUSE SHIPPING RECEIVING CLERK in April 2021. With guideline directed medical therapy and cardiac resynchronization therapy-her ejection fraction improved from 20-25% to 50-55%. She still has significant dyssynchrony by echocardiography but overall ejection fraction is improved. Clinically she has been stable and does not have any significant CHF symptoms. She has been doing well. She has no chest pain shortness of breath. No orthopnea PND. Taking medications regularly. No peripheral edema. She previously was getting abdominal migraines with significant diarrhea leading to vasovagal syncope. She had 1 episode in May which she had abdominal gurgling but did not have any hypotension and she did hydration and did not have any syncope this time. Overall she has been doing well and is clinically quite stable. Her ejection fraction based on repeat echocardiography in April was normal. 10/23/22: She returns for follow-up. She is doing well. No chest discomfort shortness of breath. Has been walking up to 2 miles per day without any significant issues. Blood pressure control is good. Tolerating medications well. [facility] Medical History (Updated 07/22/22 @ 15:12 by Toby Nelson MD) Hypothyroidism HLD (hyperlipidemia) HTN (hypertension) Ischemic bowel disease Bundle branch block, left Diabetes Abdominal migraine Pulmonary embolism Surgical History Status post biventricular cardiac pacemaker insertion LAP-BAND surgery status History of partial hysterectomy Family History Father CVD (cardiovascular disease) Diabetes Mother Diabetes Mitral valve prolapse Social History Alcohol intake: never Patient Tobacco Use Status: Never used Tobacco service: No Current occupational status: retired Review of Systems ENT Reports dizziness Card Denies chest pain, Denies chest pain at rest, Denies chest pain with activity, Denies rapid heart rate, Denies pedal edema, Denies edema, Denies leg edema, Denies lightheadedness, Denies palpitations, Denies dyspnea, Denies dyspnea on exertion and Denies orthopnea Resp Denies cough, Denies dyspnea and Denies dyspnea on exertion GI Denies hematochezia and Denies change in stool character Musc Denies abnormal gait, Reports limited range of motion, Reports muscle cramps, Denies muscle weakness, Denies numbness, Denies radiating pain into limb, Denies stiffness and Denies tingling Neuro Denies abnormal gait, Reports dizziness, Denies numbness and Denies tingling Endo Denies palpitations Physical Exam Vital Signs: Last Vital Signs Pulse 69 10/23/22 11:13 BP 114/72 10/23/22 11:13 BMI result Body Mass Index 31.8 GENERAL APPEARANCE: in no acute distress, pleasant. NECK: no carotid bruit, no jugular venous distention. SKIN: no suspicious lesions, warm and dry. HEART: no murmurs, regular rate and rhythm. LUNGS: clear to auscultation bilaterally. ABDOMEN: soft, nontender. EXTREMITIES: no edema. PERIPHERAL PULSES: equal. NEUROLOGIC: No gross deficits, AAO X 3 Assessment & Plan Assessment & Plan (1) Chronic heart failure: Code(s): I50.9 - Heart failure, unspecified (2) Hypertension: Comment: Stable Code(s): I10 - Essential (primary) hypertension Qualifiers: Hypertension type: essential hypertension Qualified Code(s): I10 - Essential (primary) hypertension (3) LBBB (left bundle branch block): Code(s): I44.7 - Left bundle-branch block, unspecified Plan Very pleasant 72-year-old female who is here for follow-up. She has left bundle-branch block related cardiomyopathy. She underwent WAREHOUSE SHIPPING RECEIVING CLERK and was started on guideline directed medical therapy. She has been on Jardiance, metoprolol succinate and Entresto. Blood pressure control is good. Ejection fraction is improved back to normal at this stage. NYHA class 1. She is doing well at this stage. She will continue same medications for now. Thank you for allowing me to participate in the care of your patient. Please feel free to contact me if you have any questions. Coding Level of Care Code Est Pt Level 4 (16156) Diagnoses Chronic heart failure I50.9 Essential hypertension I10 Hypertension type: essential hypertension LBBB (left bundle branch block) I44.7
== END 2022-10-23 11:52 | disposition home or self-care (01) ==
PROVIDERS: PCP Internal Medicine; Referring Provider Internal Medicine; Visit Provider Internal Medicine Cardiovascular Disease
DX: I50.9 Heart failure, unspecified (principal); I10 Essential (primary) hypertension; I44.7 Left bundle-branch block, unspecified
CPT/HCPCS: 99214

== ENCOUNTER → 2022-10-23 11:11 | Outpatient (BNVA) | payer MEDICARE, SELFPAY | PROVIDERS: PCP Internal Medicine; Referring Provider Internal Medicine; Visit Provider Internal Medicine Cardiovascular Disease | DX: I11.0 Hypertensive heart disease with heart failure (principal); I50.9 Heart failure, unspecified; I44.7 Left bundle-branch block, unspecified | CPT/HCPCS: 99212 ==

== ENCOUNTER → 2022-11-18 23:59 | Outpatient (BNV) | payer MEDICARE, SELFPAY ==
--- NOTE | 2022-11-30 18:05 | MHC.OFFVIS ---
Intake Intake Visit Reasons: Remote ICD Check- [employer] Allergies atenolol Allergy (Intermediate, Verified 10/23/22 11:17) hives Beta-Blockers (Beta-Adrenergic Bloc [BETA-BLOCKERS (BETA-ADRENERGIC BLOC] Allergy (Intermediate, Verified 10/23/22 11:17) HIVES vancomycin [VANCOMYCIN] Allergy (Intermediate, Verified 10/23/22 11:17) NAUSEA & VOMITING PFSH Medical History (Updated 07/22/22 @ 15:12 by Toby Nelson MD) Hypothyroidism HLD (hyperlipidemia) HTN (hypertension) Ischemic bowel disease Bundle branch block, left Diabetes Abdominal migraine Pulmonary embolism Surgical History Status post biventricular cardiac pacemaker insertion LAP-BAND surgery status History of partial hysterectomy Family History Father CVD (cardiovascular disease) Diabetes Mother Diabetes Mitral valve prolapse Social History Alcohol intake: never Patient Tobacco Use Status: Never used Tobacco service: No Current occupational status: retired Office Procedures Cardiac Device Check Cardiac Device Check Details: BiV AICD Good battery life. No new alerts. BiV paced 96%. [id number] Cardiac Device Interrogation, pacemaker or defibrillator Procedure code (CPT) selection complete Assessment & Plan Assessment & Plan (1) Cardiomyopathy: Code(s): I42.9 - Cardiomyopathy, unspecified Coding Level of Care Code Procedure Only Diagnoses Cardiomyopathy I42.9 CPT Codes Cardiac Device Check - Cardiac Device 14: [id number] Cardiac Device Interrogation, pacemaker or defibrillator ([id number])
== END ==
PROVIDERS: PCP Internal Medicine; Visit Provider Internal Medicine Cardiovascular Disease
DX: I42.9 Cardiomyopathy, unspecified (principal); Z95.810 Presence of automatic (implantable) cardiac defibrillator
CPT/HCPCS: 93295

== ENCOUNTER → 2022-11-18 23:59 | Outpatient (BNV) | payer MEDICARE, SELFPAY ==
--- NOTE | 2022-11-30 19:08 | MHC.OFFVIS ---
Intake Intake Visit Reasons: Remote HF Monitoring- [employer] Allergies atenolol Allergy (Intermediate, Verified 10/23/22 11:17) hives Beta-Blockers (Beta-Adrenergic Bloc [BETA-BLOCKERS (BETA-ADRENERGIC BLOC] Allergy (Intermediate, Verified 10/23/22 11:17) HIVES vancomycin [VANCOMYCIN] Allergy (Intermediate, Verified 10/23/22 11:17) NAUSEA & VOMITING PFSH Medical History (Updated 07/22/22 @ 15:12 by Toby Nelson MD) Hypothyroidism HLD (hyperlipidemia) HTN (hypertension) Ischemic bowel disease Bundle branch block, left Diabetes Abdominal migraine Pulmonary embolism Surgical History Status post biventricular cardiac pacemaker insertion LAP-BAND surgery status History of partial hysterectomy Family History Father CVD (cardiovascular disease) Diabetes Mother Diabetes Mitral valve prolapse Social History Alcohol intake: never Patient Tobacco Use Status: Never used Tobacco service: No Current occupational status: retired Office Procedures Cardiac Device Check Cardiac Device Check Details: HF monitoring. Stable thoracic impedance. [id number] Cardiac Device Interrogation, cardio physiologic monitor Procedure code (CPT) selection complete Coding Level of Care Code Procedure Only CPT Codes Cardiac Device Check - Cardiac Device 15: [id number] Cardiac Device Interrogation, cardio physiologic monitor ([id number])
== END ==
PROVIDERS: PCP Internal Medicine; Visit Provider Internal Medicine Cardiovascular Disease
DX: I50.9 Heart failure, unspecified (principal)
CPT/HCPCS: 93297

== ENCOUNTER → 2023-02-17 23:59 | Outpatient (BNV) | payer MEDICARE, SELFPAY ==
--- NOTE | 2023-02-19 13:47 | MHC.OFFVIS ---
Intake Intake Visit Reasons: Remote HF Monitoring- [employer] Allergies atenolol Allergy (Intermediate, Verified 10/23/22 11:17) hives Beta-Blockers (Beta-Adrenergic Bloc [BETA-BLOCKERS (BETA-ADRENERGIC BLOC] Allergy (Intermediate, Verified 10/23/22 11:17) HIVES vancomycin [VANCOMYCIN] Allergy (Intermediate, Verified 10/23/22 11:17) NAUSEA & VOMITING PFSH Medical History (Updated 07/22/22 @ 15:12 by Toby Nelson MD) Hypothyroidism HLD (hyperlipidemia) HTN (hypertension) Ischemic bowel disease Bundle branch block, left Diabetes Abdominal migraine Pulmonary embolism Surgical History Status post biventricular cardiac pacemaker insertion LAP-BAND surgery status History of partial hysterectomy Family History Father CVD (cardiovascular disease) Diabetes Mother Diabetes Mitral valve prolapse Social History Alcohol intake: never Patient Tobacco Use Status: Never used Tobacco service: No Current occupational status: retired Office Procedures Cardiac Device Check Cardiac Device Check Details: Heart failure monitoring. Stable thoracic impedance. Bi V paced 97.5%. [id number] Cardiac Device Interrogation, pacemaker or defibrillator Procedure code (CPT) selection complete Assessment & Plan Assessment & Plan (1) Chronic heart failure: Code(s): I50.9 - Heart failure, unspecified Plan Orders: Orders AMB Cardiac Device Follow-up 02/17/23 I50.9 - Heart failure, unspecified Coding Level of Care Code Procedure Only Diagnoses Chronic heart failure I50.9 CPT Codes Cardiac Device Check - Cardiac Device 14: [id number] Cardiac Device Interrogation, pacemaker or defibrillator ([id number])
== END ==
PROVIDERS: PCP Internal Medicine; Visit Provider Internal Medicine Cardiovascular Disease
DX: I50.9 Heart failure, unspecified (principal); Z95.810 Presence of automatic (implantable) cardiac defibrillator
CPT/HCPCS: 93297

== ENCOUNTER 2023-03-17 14:03 | Outpatient (AMB) | payer MEDICARE, SELFPAY ==
[2023-03-17 14:45] VITALS: BP 110/72; PULSE 86; BMI 30.6
--- NOTE | 2023-03-17 14:45 | A.OFFVIS_ITS ---
Intake Vital Signs 03/17/23 14:45 Height 5 ft 4 in Weight 178 lb 9.191 oz BMI 30.6 BP 110/72 Blood Pressure Location Lt brachial Position Sitting Pulse 86 Intake Visit Reasons: 4 mth f/up Intake Note: pt its here for a 4 mnth f/up pt states that she its feeling fine. Legal Support Manager Required: No Accompanied by: Significant Other Allergies atenolol Allergy (Intermediate, Verified 10/23/22 11:17) hives Beta-Blockers (Beta-Adrenergic Bloc [BETA-BLOCKERS (BETA-ADRENERGIC BLOC] Allergy (Intermediate, Verified 10/23/22 11:17) HIVES vancomycin [VANCOMYCIN] Allergy (Intermediate, Verified 10/23/22 11:17) NAUSEA & VOMITING Medication List - Last Reconciled 03/17/23 by Toby Nelson MD blood sugar diagnostic ([employer] Verio test strips) use as directed to test once daily chlorhexidine gluconate 0.12% mL PO DAILY cholecalciferol (vitamin D3) 25 mcg PO DAILY cholestyramine (with sugar) 4 gram 4 grams PO SUTUTHSA@0900 empagliflozin (Jardiance) 10 mg PO DAILY fluoride (sodium) 1.1% PO DAILY fluoxetine 10 mg PO BEDTIME furosemide (Lasix) 20 mg PO DAILY galcanezumab-gnlm (Emgality) 120 mg subcut Q30D hyoscyamine sulfate 0.125 mg sublingual DAILY PRN levothyroxine 112 mcg PO MOTUWETHFRSA@0630 metformin ER 1,000 mg PO BID metoprolol succinate ER 25 mg PO DAILY nortriptyline 50 mg PO BEDTIME omeprazole 20 mg PO DAILY ondansetron 8 mg PO Q8H PRN rimegepant (Nurtec ODT) 75 mg PO Q OTHER DAY PRN rivaroxaban (Xarelto) 20 mg PO DAILY@1700 sacubitril-valsartan 49-51 mg (Entresto) 1 tab PO BID 90 days simvastatin 20 mg PO BEDTIME tirzepatide 5 mg subcut QWEEK HPI HPI Comments History of Present Illness Details 72-year-old female who is here for follo w-up. She has background history of nonischemic cardiomyopathy which was thought to be related to left bundle-branch block. She underwent cardiac catheterization which did not show any coronary disease. 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 With guideline directed medical therapy and cardiac resynchronization therapy-her ejection fraction improved from 20-25% to 50-55%. She still has significant dyssynchrony by echocardiography but overall ejection fraction is improved. Clinically she has been stable and does not have any significant CHF symptoms. She has been doing well. She has no chest pain shortness of breath. No orthopnea PND. Taking medications regularly. No peripheral edema. She previously was getting abdominal migraines with significant diarrhea leading to vasovagal syncope. She had 1 episode in May which she had abdominal gurgling but did not have any hypotension and she did hydration and did not have any syncope this time. Overall she has been doing well and is clinically quite stable. Her ejection fraction based on repeat echocardiography in April was normal. 10/23/22: She returns for follow-up. Jesus leroy is doing well. No chest discomfort shortness of breath. Has been walking up to 2 miles per day without any significant issues. Blood pressure control is good. Tolerating medications well. 03/17/2023: She returns for follow-up. S he recently had pneumonia and was treated with antibiotics. She said she was feeling short of breath before that but this has improved. He had blood workup which showed normal BNP level and slightly elevated triglycerides at 200. She said this was a nonfasting blood test. Otherwise she has been doing great and has no exertional complaints. Only thing she has notices that she gets tired easily but she does not exercise regularly. [facility] Medical History (Updated 07/22/22 @ 15:12 by Toby Nelson MD) Hypothyroidism HLD (hyperlipidemia) HTN (hypertension) Ischemic bowel disease Bundle branch block, left Diabetes Abdominal migraine Pulmonary embolism Surgical History Status post biventricular cardiac pacemaker insertion LAP-BAND surgery status History of partial hysterectomy Family History Father CVD (cardiovascular disease) Diabetes Mother Diabetes Mitral valve prolapse Social History Alcohol intake: never Patient Tobacco Use Status: Never used Tobacco service: No Current occupational status: retired Review of Systems Const Denies chills, Denies fatigue, Denies fever(s), Denies frequent falls, Denies weakness, Denies weight gain and Denies weight loss ENT Denies dizziness Card Denies chest pain, Denies leg edema, Denies lightheadedness, Denies palpitations, Denies dyspnea and Denies dyspnea on exertion Resp Denies cough, Denies dyspnea and Denies dyspnea on exertion GI Denies hematochezia Musc Denies abnormal gait, Denies muscle weakness, Denies numbness, Denies radiating pain into limb and Denies tingling Neuro Denies abnormal gait, Denies dizziness, Denies frequent falls, Denies numbness, Denies tingling and Denies weakness Endo Denies fatigue and Denies palpitations Physical Exam Vital Signs: Last Vital Signs Pulse 86 03/17/23 14:45 BP 110/72 03/17/23 14:45 BMI result Body Mass Index 30.6 GENERAL APPEARANCE: in no acute distress, pleasant. NECK: no carotid bruit, no jugular venous distention. SKIN: no suspicious lesions, warm and dry. HEART: no murmurs, regular rate and rhythm. LUNGS: clear to auscultation bilaterally. ABDOMEN: soft, nontender. EXTREMITIES: no edema. PERIPHERAL PULSES: equal. NEUROLOGIC: No gross deficits, AAO X 3 Office Procedures EKG Details: Atrial sensed V paced rhythm, left axis deviation, QTC 466 milliseconds. [id number], Complete Assessment & Plan Assessment & Plan (1) Chronic heart failure: Code(s): I50.9 - Heart failure, unspecified Plan Very pleasant 72-year-old female who is here for follow-up. She has been doing well at this stage. No chest discomfort or shortness of breath. Clinically stable and euvolemic. I have advised her to continue same medications at this point. Cardiomyopathy was due to left bundle branch block and with cardiac resynchronization therapy the ejection fraction is improved. She wants to do some dental workup and is asking whether Xarelto needs to be held. I have advised her to discuss this with her dentist. If they want her to hold Xarelto then I have advised her to hold it for 48 hours and start as per the dentist advise. Thank you for allowing me to participate in the care of your patient. Please feel free to contact me if you have any questions. Coding Level of Care Code Est Pt Level 4 (60846) Diagnoses Chronic heart failure I50.9 CPT Codes EKG - CPT: 55221-Vkbjwirbxyjlhjiap, Complete ([id number])
== END 2023-03-17 15:12 | disposition home or self-care (01) ==
PROVIDERS: PCP Internal Medicine; Visit Provider Internal Medicine Cardiovascular Disease
DX: I50.9 Heart failure, unspecified (principal)
CPT/HCPCS: 93010; 99214

== ENCOUNTER → 2023-03-17 14:03 | Outpatient (BNVA) | payer MEDICARE, SELFPAY | PROVIDERS: PCP Internal Medicine; Visit Provider Internal Medicine Cardiovascular Disease | DX: I50.9 Heart failure, unspecified (principal) | CPT/HCPCS: 93005; 99212 ==

== ENCOUNTER → 2023-05-18 23:59 | Outpatient (BNV) | payer MEDICARE, SELFPAY ==
--- NOTE | 2023-05-20 13:36 | A.OFFVIS_ITS ---
Intake Intake Visit Reasons: Remote device check- [employer] Allergies atenolol Allergy (Intermediate, Verified 10/23/22 11:17) hives Beta-Blockers (Beta-Adrenergic Bloc [BETA-BLOCKERS (BETA-ADRENERGIC BLOC] Allergy (Intermediate, Verified 10/23/22 11:17) HIVES vancomycin [VANCOMYCIN] Allergy (Intermediate, Verified 10/23/22 11:17) NAUSEA & VOMITING PFSH Medical History (Updated 07/22/22 @ 15:12 by Toby Nelson MD) Hypothyroidism HLD (hyperlipidemia) HTN (hypertension) Ischemic bowel disease Bundle branch block, left Diabetes Abdominal migraine Pulmonary embolism Surgical History Status post biventricular cardiac pacemaker insertion LAP-BAND surgery status History of partial hysterectomy Family History Father CVD (cardiovascular disease) Diabetes Mother Diabetes Mitral valve prolapse Social History Alcohol intake: never Patient Tobacco Use Status: Never used Tobacco service: No Current occupational status: retired Office Procedures Cardiac Device Check Cardiac Device Check Details: BiV AICD Good battery life No new alerts 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
== END ==
PROVIDERS: PCP Internal Medicine; Visit Provider Internal Medicine Cardiovascular Disease
DX: I42.9 Cardiomyopathy, unspecified (principal); Z95.810 Presence of automatic (implantable) cardiac defibrillator
CPT/HCPCS: 93295

== ENCOUNTER → 2023-05-18 23:59 | Outpatient (BNV) | payer MEDICARE, SELFPAY ==
--- NOTE | 2023-05-20 13:38 | MHC.OFFVIS ---
Intake Intake Visit Reasons: Remote HF monitoring- [employer] Allergies atenolol Allergy (Intermediate, Verified 10/23/22 11:17) hives Beta-Blockers (Beta-Adrenergic Bloc [BETA-BLOCKERS (BETA-ADRENERGIC BLOC] Allergy (Intermediate, Verified 10/23/22 11:17) HIVES vancomycin [VANCOMYCIN] Allergy (Intermediate, Verified 10/23/22 11:17) NAUSEA & VOMITING PFSH Medical History (Updated 07/22/22 @ 15:12 by Toby Nelson MD) Hypothyroidism HLD (hyperlipidemia) HTN (hypertension) Ischemic bowel disease Bundle branch block, left Diabetes Abdominal migraine Pulmonary embolism Surgical History Status post biventricular cardiac pacemaker insertion LAP-BAND surgery status History of partial hysterectomy Family History Father CVD (cardiovascular disease) Diabetes Mother Diabetes Mitral valve prolapse Social History Alcohol intake: never Patient Tobacco Use Status: Never used Tobacco service: No Current occupational status: retired Office Procedures Cardiac Device Check Cardiac Device Check Details: HF monitoring Optivol showing concern for ongoing volume overload. The patient will be contacted for symptoms. [id number] Cardiac Device Interrogation, cardio physiologic monitor Procedure code (CPT) selection complete Assessment & Plan Assessment & Plan (1) Cardiomyopathy: Code(s): I42.9 - Cardiomyopathy, unspecified Plan: Orders: Orders AMB Cardiac Device Follow-up 05/18/23 I48.0 - Paroxysmal atrial fibrillation Coding Level of Care Code Procedure Only Diagnoses Cardiomyopathy I42.9 CPT Codes Cardiac Device Check - Cardiac Device 15: [id number]-Drupts Cardiac Device Interrogation, cardio physiologic monitor ([id number])
== END ==
PROVIDERS: PCP Internal Medicine; Visit Provider Internal Medicine Cardiovascular Disease
DX: I42.9 Cardiomyopathy, unspecified (principal); Z95.810 Presence of automatic (implantable) cardiac defibrillator
CPT/HCPCS: 93297

== ENCOUNTER → 2023-08-17 23:59 | Outpatient (BNV) | payer MEDICARE, SELFPAY ==
--- NOTE | 2023-09-16 21:02 | MHC.OFFVIS ---
Intake Visit Reasons: Remote device check- [employer] Allergies atenolol Allergy (Intermediate, Verified 10/23/22 11:17) hives Beta-Blockers (Beta-Adrenergic Bloc [BETA-BLOCKERS (BETA-ADRENERGIC BLOC] Allergy (Intermediate, Verified 10/23/22 11:17) HIVES vancomycin [VANCOMYCIN] Allergy (Intermediate, Verified 10/23/22 11:17) NAUSEA & VOMITING PFSH Medical History (Updated 07/22/22 @ 15:12 by Toby Nelson MD) Hypothyroidism HLD (hyperlipidemia) HTN (hypertension) Ischemic bowel disease Bundle branch block, left Diabetes Abdominal migraine Pulmonary embolism Surgical History Status post biventricular cardiac pacemaker insertion LAP-BAND surgery status History of partial hysterectomy Family History Father CVD (cardiovascular disease) Diabetes Mother Diabetes Mitral valve prolapse Social History Alcohol intake: never Patient Tobacco Use Status: Never used Tobacco service: No Current occupational status: retired Office Procedures Cardiac Device Check Cardiac Device Check Details: HF monitoring Stable thoracic impedance. [id number] Cardiac Device Interrogation, cardio physiologic monitor Procedure code (CPT) selection complete Assessment & Plan Assessment & Plan (1) Cardiomyopathy: Code(s): I42.9 - Cardiomyopathy, unspecified Category: Medical Plan: Coding Level of Care Code Procedure Only Diagnoses Cardiomyopathy I42.9 CPT Codes Cardiac Device Check - Cardiac Device 15: [id number] Cardiac Device Interrogation, cardio physiologic monitor ([id number])
== END ==
PROVIDERS: PCP Internal Medicine; Visit Provider Internal Medicine Cardiovascular Disease
DX: I42.9 Cardiomyopathy, unspecified (principal); Z95.810 Presence of automatic (implantable) cardiac defibrillator
CPT/HCPCS: 93297

== ENCOUNTER 2023-09-22 10:09 | Outpatient (AMB) | payer MEDICARE, SELFPAY ==
--- NOTE | 2023-09-22 10:38 | A.OFFVIS_ITS ---
Vital Signs 09/22/23 10:39 Height 5 ft 4 in Weight 173 lb 4.533 oz BMI 29.7 BP 114/64 Blood Pressure Location Lt brachial Position Sitting Pulse 81 Pulse Source Pulse Oximeter Intake Visit Reasons: 6 mthf/up Intake Note: 6 mth f/up -pt is doing fine Php Web Developer Required: No Accompanied by: Self / Same As Patient Allergies atenolol Allergy (Intermediate, Verified 10/23/22 11:17) hives Beta-Blockers (Beta-Adrenergic Bloc [BETA-BLOCKERS (BETA-ADRENERGIC BLOC] Allergy (Intermediate, Verified 10/23/22 11:17) HIVES vancomycin [VANCOMYCIN] Allergy (Intermediate, Verified 10/23/22 11:17) NAUSEA & VOMITING Medication List - Last Reconciled 09/22/23 by Toby Nelson MD blood sugar diagnostic ([employer] Verio test strips) use as directed to test once daily chlorhexidine gluconate 0.12% mL PO DAILY cholecalciferol (vitamin D3) 25 mcg PO DAILY cholestyramine (with sugar) 4 gram 4 grams PO SUTUTHSA@0900 empagliflozin (Jardiance) 10 mg PO DAILY 90 days ferrous sulfate 325 mg PO DAILY fluoride (sodium) 1.1% PO DAILY fluoxetine 10 mg PO BEDTIME furosemide (Lasix) 20 mg PO DAILY galcanezumab-gnlm (Emgality) 120 mg subcut Q30D hyoscyamine sulfate 0.125 mg sublingual DAILY PRN levothyroxine 112 mcg PO MOTUWETHFRSA@0630 metformin ER 1,000 mg PO BID metoprolol succinate ER 25 mg PO DAILY nortriptyline 50 mg PO BEDTIME omeprazole 20 mg PO DAILY ondansetron 8 mg PO Q8H PRN rimegepant (Nurtec ODT) 75 mg PO Q OTHER DAY PRN rivaroxaban (Xarelto) 20 mg PO DAILY@1700 sacubitril-valsartan 49-51 mg (Entresto) 1 tab PO BID 90 days semaglutide (Ozempic) 0.5 mg subcut QWEEK simvastatin 20 mg PO BEDTIME HPI Comments Details: 73-year-old female who is here for follow-up. She has background history of nonischemic cardiomyopathy which was thought to be related to left bundle-branch block. She underwent cardiac catheterization which did not show any coronary disease. 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 With guideline directed medical therapy and cardiac resynchronization therapy-her ejection fraction improved from 20-25% to 50-55%. She still has significant dyssynchrony by echocardiog liat but overall ejection fraction is improved. Clinically she has been stable and does not have any significant CHF symptoms. She has been doing well. She has no chest pain shortness of breath. No orthopnea PND. Taking medications regularly. No peripheral edema. She previously was getting abdominal migraines with significant diarrhea leading to vasovagal syncope. She had 1 episode in May which she had abdominal gurgling but did not have any hypotension and she did hydration and did not have any syncope this time. Overall she has been doing well and is clinically quite stable. Her ejection fraction based on repeat echocardiography in April was normal. 10/23/22: She returns for follow-up. She is doing well. No chest discomfort shortness of breath. Has been walking up to 2 miles per day without any significant issues. Blood pressure control is good. Tolerating medications well. 03/17/2023: She returns for follow-up. She recently had pneumonia and was treated with antibiotics. She said she was feeling short of breath before that but this has improved. He had blood workup which showed normal BNP level and slightly elevated triglycerides at 200. She said this was a nonfasting blood test. Otherwise she has been doing great and has no exertional complaints. Only thing she has notices that she gets tired easily but she does not exercise regularly. 09/22/2023: She is here for f/u. Doing very well. Clinically euvolemic. Taking meds and tolerating. [facility] Medical History (Updated 09/22/23 @ 10:44 by Mariely Friedman CMA) Cataract (lens) fragments in eye following cataract surgery Hypothyroidism HLD (hyperlipidemia) HTN (hypertension) Ischemic bowel disease Bundle branch block, left Diabetes Abdominal migraine Pulmonary embolism Surgical History Status post biventricular cardiac pacemaker insertion LAP-BAND surgery status History of partial hysterectomy Family History Father CVD (cardiovascular disease) Diabetes Mother Diabetes Mitral valve prolapse Social History Alcohol intake: never Patient Tobacco Use Status: Never used Tobacco service: No Current occupational status: retired Review of Systems Const Denies chills, Denies fatigue, Denies fever(s), Denies frequent falls, Denies weakness, Denies weight gain and Denies weight loss ENT Denies dizziness Card Denies chest pain, Denies leg edema, Denies lightheadedness, Denies palpitations, Denies dyspnea and Denies dyspnea on exertion Resp Denies cough, Denies dyspnea and Denies dyspnea on exertion GI Denies hematochezia Musc Denies abnormal gait, Denies muscle weakness, Denies numbness, Denies radiating pain into limb and Denies tingling Neuro Denies abnormal gait, Denies dizziness, Denies frequent falls, Denies numbness, Denies tingling and Denies weakness Endo Denies fatigue and Denies palpitations Physical Exam Vital Signs: Last Vital Signs Pulse 81 09/22/23 10:39 BP 114/64 09/22/23 10:39 BMI result Body Mass Index 29.7 GENERAL APPEARANCE: in no acute distress, pleasant. NECK: no carotid bruit, no jugular venous distention. SKIN: no suspicious lesions, warm and dry. HEART: no murmurs, regular rate and rhythm. LUNGS: clear to auscultation bilaterally. ABDOMEN: soft, nontender. EXTREMITIES: no edema. PERIPHERAL PULSES: equal. NEUROLOGIC: No gross deficits, AAO X 3 Assessment & Plan Assessment & Plan (1) Chronic heart failure: Code(s): I50.9 - Heart failure, unspecified Category: Medical Plan Very pleasant 73-year-old female who is here for follow-up. She has been doing well at this stage. No chest discomfort or shortness of breath. Clinically stable and euvolemic. I have advised her to continue same medications at this point. Cardiomyopathy was due to left bundle branch block and with cardiac resynchronization therapy the ejection fraction is improved. I have advised her to increase physical activity. Thank you for allowing me to participate in the care of your patient. Please feel free to contact me if you have any questions. Medications: New ferrous sulfate 325 mg PO DAILY 1 tab 0RF Coding Level of Care Code Est Pt Level 4 (15597) Diagnoses Chronic heart failure I50.9
[2023-09-22 10:39] VITALS: BP 114/64; PULSE 81; BMI 29.7
== END 2023-09-22 10:59 | disposition home or self-care (01) ==
PROVIDERS: PCP Internal Medicine; Visit Provider Internal Medicine Cardiovascular Disease
DX: I50.9 Heart failure, unspecified (principal)
CPT/HCPCS: 99214

== ENCOUNTER → 2023-09-22 10:09 | Outpatient (BNVA) | payer MEDICARE, SELFPAY | PROVIDERS: PCP Internal Medicine; Visit Provider Internal Medicine Cardiovascular Disease | DX: I11.0 Hypertensive heart disease with heart failure (principal); I50.9 Heart failure, unspecified | CPT/HCPCS: 99212 ==

== ENCOUNTER → 2023-11-16 23:59 | Outpatient (BNV) | payer MEDICARE, SELFPAY ==
--- NOTE | 2023-11-23 17:29 | MHC.OFFVIS ---
Intake Visit Reasons: Remote device check- [employer] Allergies atenolol Allergy (Intermediate, Verified 10/23/22 11:17) hives Beta-Blockers (Beta-Adrenergic Bloc [BETA-BLOCKERS (BETA-ADRENERGIC BLOC] Allergy (Intermediate, Verified 10/23/22 11:17) HIVES vancomycin [VANCOMYCIN] Allergy (Intermediate, Verified 10/23/22 11:17) NAUSEA & VOMITING PFSH Medical History (Updated 09/22/23 @ 10:44 by Mariely Friedman CMA) Cataract (lens) fragments in eye following cataract surgery Hypothyroidism HLD (hyperlipidemia) HTN (hypertension) Ischemic bowel disease Bundle branch block, left Diabetes Abdominal migraine Pulmonary embolism Surgical History Status post biventricular cardiac pacemaker insertion LAP-BAND surgery status History of partial hysterectomy Family History Father CVD (cardiovascular disease) Diabetes Mother Diabetes Mitral valve prolapse Social History Alcohol intake: never Patient Tobacco Use Status: Never used Tobacco service: No Current occupational status: retired Office Procedures Cardiac Device Check Cardiac Device Check Details: JAILER CHIEF-D Good battery life No new alerts. 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 [id number] Cardiac Device Check, multi lead implantable defibrillator Procedure code (CPT) selection complete Assessment & Plan Assessment & Plan (1) Chronic heart failure: Code(s): I50.9 - Heart failure, unspecified Category: Medical Plan Orders: Orders AMB Cardiac Device Follow-up 11/16/23 I50.9 - Heart failure, unspecified Coding Level of Care Code Procedure Only Diagnoses Chronic heart failure I50.9 CPT Codes Cardiac Device Check - Cardiac Device 6: [id number] Cardiac Device Check, multi lead implantable defibrillator ([id number])
== END ==
PROVIDERS: PCP Internal Medicine; Visit Provider Internal Medicine Cardiovascular Disease
DX: I50.9 Heart failure, unspecified (principal); Z95.810 Presence of automatic (implantable) cardiac defibrillator
CPT/HCPCS: 93295

== ENCOUNTER → 2023-11-16 23:59 | Outpatient (BNV) | payer MEDICARE, SELFPAY ==
--- NOTE | 2023-11-23 17:21 | MHC.OFFVIS ---
Intake Visit Reasons: Remote HF monitoring- [employer] Allergies atenolol Allergy (Intermediate, Verified 10/23/22 11:17) hives Beta-Blockers (Beta-Adrenergic Bloc [BETA-BLOCKERS (BETA-ADRENERGIC BLOC] Allergy (Intermediate, Verified 10/23/22 11:17) HIVES vancomycin [VANCOMYCIN] Allergy (Intermediate, Verified 10/23/22 11:17) NAUSEA & VOMITING PFSH Medical History (Updated 09/22/23 @ 10:44 by Mariely Friedman CMA) Cataract (lens) fragments in eye following cataract surgery Hypothyroidism HLD (hyperlipidemia) HTN (hypertension) Ischemic bowel disease Bundle branch block, left Diabetes Abdominal migraine Pulmonary embolism Surgical History Status post biventricular cardiac pacemaker insertion LAP-BAND surgery status History of partial hysterectomy Family History Father CVD (cardiovascular disease) Diabetes Mother Diabetes Mitral valve prolapse Social History Alcohol intake: never Patient Tobacco Use Status: Never used Tobacco service: No Current occupational status: retired Office Procedures Cardiac Device Check Cardiac Device Check Details: 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 optivol showing ongoing fluid overload. [id number] Device Interrogation, cardiac physiologic monitor system Procedure code (CPT) selection complete Assessment & Plan Assessment & Plan (1) Chronic heart failure: Code(s): I50.9 - Heart failure, unspecified Category: Medical Plan Orders: Orders AMB Cardiac Device Follow-up 11/16/23 I50.9 - Heart failure, unspecified Coding Level of Care Code Procedure Only Diagnoses Chronic heart failure I50.9 CPT Codes Cardiac Device Check - Cardiac Device 10: [id number] Device Interrogation, cardiac physiologic monitor system ([id number])
== END ==
PROVIDERS: PCP Internal Medicine; Visit Provider Internal Medicine Cardiovascular Disease
DX: I50.9 Heart failure, unspecified (principal); Z95.810 Presence of automatic (implantable) cardiac defibrillator
CPT/HCPCS: 93297

== ENCOUNTER → 2023-12-18 23:59 | Outpatient (BNV) | payer MEDICARE, SELFPAY ==
--- NOTE | 2024-01-03 20:49 | MHC.OFFVIS ---
Intake Visit Reasons: Remote HF monitoring- [employer] Allergies atenolol Allergy (Intermediate, Verified 10/23/22 11:17) hives Beta-Blockers (Beta-Adrenergic Bloc [BETA-BLOCKERS (BETA-ADRENERGIC BLOC] Allergy (Intermediate, Verified 10/23/22 11:17) HIVES vancomycin [VANCOMYCIN] Allergy (Intermediate, Verified 10/23/22 11:17) NAUSEA & VOMITING PFSH Medical History (Updated 09/22/23 @ 10:44 by Mariely Friedman CMA) Cataract (lens) fragments in eye following cataract surgery Hypothyroidism HLD (hyperlipidemia) HTN (hypertension) Ischemic bowel disease Bundle branch block, left Diabetes Abdominal migraine Pulmonary embolism Surgical History Status post biventricular cardiac pacemaker insertion LAP-BAND surgery status History of partial hysterectomy Family History Father CVD (cardiovascular disease) Diabetes Mother Diabetes Mitral valve prolapse Social History Alcohol intake: never Patient Tobacco Use Status: Never used Tobacco service: No Current occupational status: retired Office Procedures Cardiac Device Check Cardiac Device Check Details: HF monitoring Stable thoracic impedance. [id number]-[id number] Device Interrogation, cardiac physiologic monitor system Procedure code (CPT) selection complete Assessment & Plan Assessment & Plan (1) Chronic heart failure: Code(s): I50.9 - Heart failure, unspecified Category: Medical Plan: Coding Level of Care Code Procedure Only Diagnoses Chronic heart failure I50.9 CPT Codes Cardiac Device Check - Cardiac Device 10: 54504-Hzaozsd Device Interrogation, cardiac physiologic monitor system ([id number])
== END ==
PROVIDERS: PCP Internal Medicine; Visit Provider Internal Medicine Cardiovascular Disease
DX: I50.9 Heart failure, unspecified (principal); Z95.810 Presence of automatic (implantable) cardiac defibrillator
CPT/HCPCS: 93297

== ENCOUNTER → 2024-01-18 23:59 | Outpatient (BNV) | payer MEDICARE, SELFPAY ==
--- NOTE | 2024-01-22 10:24 | MHC.OFFVIS ---
Intake Visit Reasons: Remote HF monitoring- [employer] Allergies atenolol Allergy (Intermediate, Verified 10/23/22 11:17) hives Beta-Blockers (Beta-Adrenergic Bloc [BETA-BLOCKERS (BETA-ADRENERGIC BLOC] Allergy (Intermediate, Verified 10/23/22 11:17) HIVES vancomycin [VANCOMYCIN] Allergy (Intermediate, Verified 10/23/22 11:17) NAUSEA & VOMITING PFSH Medical History (Updated 09/22/23 @ 10:44 by Mariely Friedman CMA) Cataract (lens) fragments in eye following cataract surgery Hypothyroidism HLD (hyperlipidemia) HTN (hypertension) Ischemic bowel disease Bundle branch block, left Diabetes Abdominal migraine Pulmonary embolism Surgical History Status post biventricular cardiac pacemaker insertion LAP-BAND surgery status History of partial hysterectomy Family History Father CVD (cardiovascular disease) Diabetes Mother Diabetes Mitral valve prolapse Social History Alcohol intake: never Patient Tobacco Use Status: Never used Tobacco service: No Current occupational status: retired Office Procedures Cardiac Device Check Cardiac Device Check Details: HF monitoring Stable thoracic impedance. 47998-Wzaxzbx Device Interrogation, cardiac physiologic monitor system Procedure code (CPT) selection complete Assessment & Plan Assessment & Plan (1) Chronic heart failure: Code(s): I50.9 - Heart failure, unspecified Category: Medical Plan Orders: Orders AMB Cardiac Device Follow-up 01/18/24 I50.9 - Heart failure, unspecified Coding Level of Care Code Procedure Only Diagnoses Chronic heart failure I50.9 CPT Codes Cardiac Device Check - Cardiac Device 10: 57267-Crmezqa Device Interrogation, cardiac physiologic monitor system ([id number])
== END ==
PROVIDERS: PCP Internal Medicine; Visit Provider Internal Medicine Cardiovascular Disease
DX: I50.9 Heart failure, unspecified (principal); Z95.810 Presence of automatic (implantable) cardiac defibrillator
CPT/HCPCS: 93297

== ENCOUNTER 2024-01-21 09:43 | Outpatient (AMB) | payer MEDICARE, SELFPAY ==
[2024-01-21 09:48] VITALS: BP 110/64; PULSE 92; BMI 28.8
--- NOTE | 2024-01-21 09:48 | MHC.OFFVIS ---
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 Accompanied by: Self / Same As Patient Allergies atenolol Allergy (Intermediate, Verified 10/23/22 11:17) hives Beta-Blockers (Beta-Adrenergic Bloc [BETA-BLOCKERS (BETA-ADRENERGIC BLOC] Allergy (Intermediate, Verified 10/23/22 11:17) HIVES vancomycin [VANCOMYCIN] Allergy (Intermediate, Verified 10/23/22 11:17) NAUSEA & VOMITING Medication List - Last Reconciled 01/21/24 by Toby Nelson MD blood sugar diagnostic ([employer] Verio test strips) use as directed to test once daily chlorhexidine gluconate 0.12% mL PO DAILY cholecalciferol (vitamin D3) 25 mcg PO DAILY cholestyramine (with sugar) 4 gram 4 grams PO SUTUTHSA@0900 empagliflozin (Jardiance) 10 mg PO DAILY 90 days ferrous sulfate 325 mg PO DAILY fluoride (sodium) 1.1% PO DAILY fluoxetine 10 mg PO BEDTIME furosemide 20 mg PO DAILY galcanezumab-gnlm (Emgality) 120 mg subcut Q30D hyoscyamine sulfate 0.125 mg sublingual DAILY PRN levothyroxine 112 mcg PO MOTUWETHFRSA@0630 metformin ER 1,000 mg PO BID metoprolol succinate ER 25 mg PO DAILY nortriptyline 50 mg PO BEDTIME omeprazole 20 mg PO DAILY ondansetron 8 mg PO Q8H PRN rimegepant (Nurtec ODT) 75 mg PO Q OTHER DAY PRN rivaroxaban (Xarelto) 20 mg PO DAILY@1700 sacubitril-valsartan 49-51 mg (Entresto) 1 tab PO BID 90 days semaglutide (Ozempic) 0.5 mg subcut QWEEK simvastatin 20 mg PO BEDTIME HPI Comments Details: 73-year-old female who is here for follow-up. She has background history of nonischemic cardiomyopathy which was thought to be related to left bundle-branch block. She underwent cardiac catheterization which did not show any coronary disease. She underwent [employer] in April 2021. With guideline directed medical therapy and cardiac resynchronization therapy-her ejection fraction improved from 20-25% to 50-55%. She still has significant dyssynchrony by echocardiography but overall ejection fraction is improved. Clinically she has been stable and does not have any significant CHF symptoms. She has been doing well. She has no chest pain shortness of breath. No orthopnea PND. Taking medications regularly. No peripheral edema. She previously was getting abdominal migraines with significant diarrhea leading to vasovagal syncope. She had 1 episode in May which she had abdominal gurgling but did not have any hypotension and she did hydration and did not have any syncope this time. Overall she has been doing well and is clinically quite stable. Her ejection fraction based on repeat echocardiography in April was normal. 10/23/22: She returns for follow-up. She is doing well. No chest discomfort shortness of breath. Has been walking up to 2 miles per day without any significant issues. Blood pressure control is good. Tolerating medications well. 03/17/2023: She returns for follow-up. She recently had pneumonia and was treated with antibiotics. She said she was feeling short of breath before that but this has improved. He had blood workup which showed normal BNP level and slightly elevated triglycerides at 200. She said this was a nonfasting blood test. Otherwise she has been doing great and has no exertional complaints. Only thing she has notices that she gets tired easily but she does not exercise regularly. 09/22/2023: She is here for f/u. Doing very well. Clinically euvolemic. Taking meds and tolerating. 01/21/24: She is here for follow-up. She is been doing well. Clinically stable and has no heart failure symptoms. Doing quite well and is planning to start doing some voluntary work at [facility]. [facility] Medical History (Updated 09/22/23 @ 10:44 by Mariely Friedman CMA) Cataract (lens) fragments in eye following cataract surgery Hypothyroidism HLD (hyperlipidemia) HTN (hypertension) Ischemic bowel disease Bundle branch block, left Diabetes Abdominal migraine Pulmonary embolism Surgical History Status post biventricular cardiac pacemaker insertion LAP-BAND surgery status History of partial hysterectomy Family History Father CVD (cardiovascular disease) Diabetes Mother Diabetes Mitral valve prolapse Social History Alcohol intake: never Patient Tobacco Use Status: Never used Tobacco service: No Current occupational status: retired Review of Systems Const Denies chills, Denies fatigue, Denies fever(s), Denies frequent falls, Denies weakness, Denies weight gain and Denies weight loss ENT Denies dizziness Card Denies chest pain, Denies leg edema, Denies lightheadedness, Denies palpitations, Denies dyspnea and Denies dyspnea on exertion Resp Denies cough, Denies dyspnea and Denies dyspnea on exertion GI Denies hematochezia Musc Denies abnormal gait, Denies muscle weakness, Denies numbness, Denies radiating pain into limb and Denies tingling Neuro Denies abnormal gait, Denies dizziness, Denies frequent falls, Denies numbness, Denies tingling and Denies weakness Endo Denies fatigue and Denies palpitations Physical Exam Vital Signs: Last Vital Signs Pulse 92 01/21/24 09:48 BP 110/64 01/21/24 09:48 BMI result Body Mass Index 28.8 GENERAL APPEARANCE: in no acute distress, pleasant. NECK: no carotid bruit, no jugular venous distention. SKIN: no suspicious lesions, warm and dry. HEART: no murmurs, regular rate and rhythm. LUNGS: clear to auscultation bilaterally. ABDOMEN: soft, nontender. EXTREMITIES: no edema. PERIPHERAL PULSES: equal. NEUROLOGIC: No gross deficits, AAO X 3 Assessment & Plan Assessment & Plan (1) Chronic heart failure: Code(s): I50.9 - Heart failure, unspecified Category: Medical Plan Very pleasant 73-year-old female who is here for follow-up. She has been doing well at this stage. No chest discomfort or shortness of breath. Clinically stable and euvolemic. I have advised her to continue same medications at this point. Cardiomyopathy was due to left bundle branch block and with cardiac resynchronization therapy the ejection fraction is improved. Follow-up in 6 months. Thank you for allowing me to participate in the care of your patient. Please feel free to contact me if you have any questions. Coding Level of Care Code Est Pt Level 4 (69565) Diagnoses Chronic heart failure I50.9
--- OUTSIDE RECORDS SUMMARY | 2024-01-21 23:53 | XMS_ITS ---
Author Organization [facility] Address [address] [place] [address] Care Team Providers Care Washer Machine Name Role Phone Shawn Omer MD Primary Care Provider Unavaila Sadie Avendano Unavailable [phone] REASON FOR VISIT r/s Encounters Encounter Location Date Provider Diagnosis [address] [id number] 09/22/2023 Sadie Jang Plan Of Treatment Next Appt Details Provider Name:Sadie Jang , 02/26/2024 09:00:00 AM, [address] [place] [address], [phone], Progress Notes * Triny HAYESOB:09/1950 (73 yo F)Acc No.[id number]:09/22/2023 Patient:?Jacki Hayes :1950???Age:73 Y???Sex:Female Address:[address] [place] [address] [place], [address] * true * Date:? Generated for Printi ng/Natalia/eTransmitting on:?01/21/2024 11:52 PM EST
--- OUTSIDE RECORDS SUMMARY | 2024-01-21 23:53 | XMS_ITS ---
Author Organization [facility] Address [address] [place] [id number] Care Team Providers Care Center Human Resources Manager Name Role Phone Kan MCMAHON, Shawn Primary Care Provider Unavaila Sadie Avendano [phone] Encounters Encounter Location Date Provider Diagnosis [address] [phone] 09/29/2023 Sadie Jang Plan Of Treatment Next Appt Details Provider Name:Sadie Jang , 02/26/2024 09:00:00 AM, [address] [place] [address], [phone], Progress Notes * Triny HAYESOB:09/1950 (73 yo F)Acc No.[id number]:09/29/2023 Progress Note Patient:?Jacki HAYES Provider:?Sadie Jang DPM :1950???Age:73 Y???Sex:Female D ate:09/29/2023 Address:[address] [place] [address] [place], [id number] Pcp:Shawn Omer MD Subjective: * Chief Complaints: * ??? * Medical History:? Objective: * Vitals:? Assessment: Plan: * Treatment: * Images: * The named appointment provid er may or may not be the originator of this progress note, and it is not deemed complete until electronically signed by the appointment provider. Sign off status: Pending * Provider:Meme Jang DPM Date:?2023 Generated for Madison christie/Natalia/Ovidio on:?01/21/2024 11:52 PM EST
--- OUTSIDE RECORDS SUMMARY | 2024-01-21 23:53 | XMS_ITS ---
Author Organization [facility] Address [address] [place] [address] Care Team Providers Care Paleontology Teacher Name Role Phone Shawn Omer MD Primary Care Provider Unavaila ble Black, Sadie Unavailable [phone] Allergies Allergen (clinical drug ingredient) Drug/Non Drug Allergy documented on EMR Reaction Allergy Type Onset Date Status propranolol Inderal LA hives Drug Allergy Acti ve Substance with beta adrenergic receptor antagonist mechanism of action (substance) Beta Adrenergic Blockers hives Drug Allergy Active REASON FOR VISIT At Risk Footcare, Painful Wart(s) Medications Medication SIG (Take, Route, Frequency, Duration) Notes Start Date End Date Status Chlorthalidone 25 MG 1 tablet in the mor royal Orally Once a day for 30 day(s) Not-Taking FLUoxetine HCl 40 MG 1 capsule in the mo rning Orally Once a day for 30 day(s) Not-Taking Insulin Not-Taking metFORMIN HCl ER 500 MG 1 tablet with ev ening meal Orally Once a day for 30 day(s) Not-Taking Byetta 5 MCG Pen Not -Taking Fondaparinux Sodium 10 MG/0.8ML INJECT CONTENTS OF 1 SYRINGE SUBCUTANEOUSLY DAILY FOR 5 DAYS DIRECTED UNTIL INR OVER 2 Subcutaneous for 5 Not-Taking Fluoxetine Not-Takin g Extra Depth Orthopedic Shoes (1 Pair) with Customized Heat Molded Multidensity Innersoles (3 Pair) as directed Dx: NIDDM/Polyneuropathy (E11.42), Hammertoe Foot Deformity (M20.41,M20.42), Preulcerative Skin Lesion(s) (L85.1 08/23/2021 Not-Taking Trulicity 3 MG/0.5ML as directed Subcutaneous Not-Taking Lisinopril 30mg Not- Taking Extra Depth Orthopedic Shoes (1 Pair) with Customized Heat Molded Multidensity Innersoles (3 Pair) as directed Dx: NIDDM/Polyneuropathy (E11.42), Hammertoe Foot Deformity (M20.41,M20.42), Preulcerative Skin Lesion(s) (L85.1 Not-Taking Lisinopril 40 MG 1 tablet Orally Once a day Not-Taking Extra Depth Orthopedic Shoes (1 Pair) with Customized Heat Molded Multidensity Innersoles (3 Pair) as directed Dx: NIDDM/Polyneuropathy (E11.42), Hammertoe Foot Deformity (M20.41,M20.42), Preulcerative Skin Lesion(s) (L85.1 Not-Taking Extra Depth Orthopedic Shoes (1 Pair) with Customized Heat Molded Multidensity Innersoles (3 Pair) as directed Dx: NIDDM/Polyneuropathy (E11.42), Hammertoe Foot Deformity (M20.41,M20.42), Preulcerative Skin Lesion(s) (L85.1 09/19/2022 Active Mounjaro 2.5 MG/0.5ML as directed Not-Taking Levothyroxine Sodium 112mcg Active Metformin & Diet Manage Prod 500mg Active Simvastatin Active Omeprazole 20mg Acti ve Xarelto 10 MG 1 tablet with food Orally Once a day for 30 day(s) Active Metoprolol Succinate ER 25 MG TAKE 1 TABLET BY MOUTH AT BEDTIME Oral for 30 Active Nortripytline HCl Ac tive Lasix 20 MG 1 tablet Orally Once a day for 30 days Active Emgality 120 MG/ML as directed Subcutaneous Active Jardiance Active Lantus 100 UNIT/ML 0.02 ml Subcutaneous Once a day for 30 day(s) Not-Kang ing Entresto Active Ferrous Gluconate Ac tive Warfarin Sodium 5 MG TAKE 1 TO 2 TABLETS BY MOUTH EVERY DAY DIRECTED Oral for 30 Not-Taking Ozempic Active Triamcinolone Acetonide 0.1 % 1 application to affected area Externally Twice a day Not-Taking Byetta 10 MCG Pen 10 MCG/0.04ML 0.02 ml up to 1 hour before breakfast and evening meal Subcutaneous Twice a day for 30 day(s) Not-Taking BD Pen Mini as directed Not-Koby mejia baby asprin as directed Not-Ta Social History Tobacco Use: Social History Observation Description Date Details (start date - stop date) Never Smoker NA - NA Tobacco Use/Smoking Question Answer Notes Are you a: nonsmoker Additional Findings: Tobacco Non-User Current no n-smoker Alcohol Screen Question Answer Notes Did you have a drink containing alcohol in the p ast year? No Points 0 Interpretation Negative Tobacco use other than smoking: Question Answer Notes Are you an other tobacco user? No Vital Signs Height 5ft 4in in 11/25/2023 Weight 168 lbs 11/25/2023 BMI 28.83 kg/m2 11/25/2023 Procedures Procedure Date Ordered Date Performed Result Body Sit e 63747-Asjc Destruction, 1-11/25/2023 N/A 17956-KJMP SKIN LESIONS, OVER 4 11/25/2023 N/A [id number] DYSTROPHIC NAILS ANY # 11/25/2023 N/A Encounters Encounter Location Date Provider Diagnosis [facility] [address] 11/25/2023 Sadie Jang Type 2 diabetes myla itus with diabetic polyneuropathy E11.42 ; Other viral warts B07.8 and Pain in left foot M79.672 Assessments Encounter Date Diagnosis (ICD Code) Assessment Notes Treatment Notes Treatment Clinical Notes Section Notes 11/25/2023 Type 2 diabetes mellitus with diabetic polyneuropathy (ICD-10 - E11.42) 11/25/2023 Other viral warts (ICD-10 - B07.8) 11/25/2023 Pain in left foot (ICD-10 - M79.672) Plan Of Treatment Pending Test Test Name Order Date 94434-Ecvb Destruction, 1-11/25/2023 14695-NSEX SKIN LESIONS, OVER 4 11/25/19 24 M9477-WCEUILAC DYSTROPHIC NAILS ANY # Next Appt Details Follow Up: prn, Reason: Provider Name:Sadie Jang , 02/26/2024 09:00:00 AM, [address] [facility], [place], [address], Procedure Notes * Category Sub-Category Detail Notes Wart Treatment Procedure Verrucae(s) were debrided to pin-point bleeding margins with sterile surgical blade, silver nitrate chemocautery applied, recomm. immune-boosting meds such as zinc, recomm. follow up with topical chemosurgical agents, Pt AGAIN, defers any other forms of tx (30824), DIABETES: Any more invasive procedure to wart deferred due to diabetes risk Keratoma Treatment Parring or Cutting o f Benign Hyperkeratotic Lesion(s) 34117 ( More than 4 Lesions ) - The Benign hyperkeratotic lesions, as described above were pared, and/or cut utilizing a sterile 15 blade, tissue nippers, and/or dremel Nail Reduction Nail Reduction Trimming of dyst rophic nails performed to reduce/remove overall nail length and girth, by manual and electrical means with use of a nail nipper and/or dremel, to more viable healthy nail plate or bed tissue 6-10 (G0127) Progress Notes * Triny HAYESOB:09/1950 (73 yo F)Acc No.[id number]:11/25/2023 Progress Note Patient:?Jacki Hayes Provider:?Sadie Jang DPM :1950???Age:73 Y???Sex:Female D ate:11/25/2023 Address:[address] [place], [place] [address]maureen [id number] Pcp:Shawn Omer MD Subjective: * Chief Complaints: * ???At Risk FootcarePainful W art(s) * HPI: ???At Risk footcare:?Pt States Last PCP Visit:?Date?08/07/2023 * Medical History:? * Surgical History:?lap band h ysterectomy right carpal tunnel 11/2017Tooth extraction ataract surgery 06/18/23Colonoscopy 10/20/23 * Hospitalization/Major Diagno stic Procedure:?Admitted to [facility]; pulminay embloi x 5 days 01/12/14-01/17/14[facility] - vomiting/diarrhea/dehydration 04/12-04/16/18[facility]- Ischemic bowel-4 day stay 12/10/2018[facility]- nausea,blood pressure, vomiting, and [facility] - fell- fractured ankle 09/14/2019[facility] [place] 04/06/20[facility] - Low blood pressure- fluids replacement 10/31[facility]/ Blood Pressure 03/28/21 * Family History:?Mother: dece ased, diagnosed with Diabetic - NIDDM, Unspecified essential hypertension.?Father: , diagnosed with Diabetic - NIDDM, Unspecified essential hypertension, Other malignant neoplasm of unspecified site.?Paternal Grand Mother: stroke, cancer.?Spouse: alive.? * Social History:?Tobacco Use:?Tobacco Use/Smoking?Are you a:?nonsmoker ?Additional Findings: Tobacco Non-User?Current non-smoker ?Tobacco use other than smoking?Are you an other tobacco user??No ???Drugs/Alcohol:?Drugs?Have you used drugs other than those for medical reasons in the past 12 months??No ?Alcohol Screen?Did you have a drink containing alcohol in the past year??No ?Points?0 ?Interpretation?Negative ???Miscellaneous:?Caffeine: yes, Tea: 1 per day. ?Children: yes, 2. ?Exercise: yes, walking , bike riding. ?Living with: spouse. ?Marital status: . ?Occupation: retired RN. * Medications:?TakingFerrous G luconate Ozempic Entresto Jardiance Lasix 20 MG Tablet 1 tablet Orally Once a dayEmgality 120 MG/ML Solution Auto-injector as directed Subcutaneous Metoprolol Succinate ER 25 MG Tablet Extended Release 24 Hour TAKE 1 TABLET BY MOUTH AT BEDTIME Oral Nortripytline HCl Simvastatin Levothyroxine Sodium 112mcg Metformin & Diet Manage Prod 500mg Omeprazole 20mg Xarelto 10 MG Tablet 1 tablet with food Orally Once a dayExtra Depth Orthopedic Shoes (1 Pair) with Customized Heat Molded Multidensity Innersoles (3 Pair) as directed Dx: NIDDM/Polyneuropathy (E11.42), Hammertoe Foot Deformity (M20.41,M20.42), Preulcerative Skin Lesion(s) (L85.1Taking Ferrous Gluconate Taking Ozempic Taking Entresto Taking Jardiance Taking Lasix 20 MG Tablet 1 tablet Orally Once a dayTaking Emgality 120 MG/ML Solution Auto-injector as directed Subcutaneous Taking Metoprolol Succinate ER 25 MG Tablet Extended Release 24 Hour TAKE 1 TABLET BY MOUTH AT BEDTIME Oral Taking Nortripytline HCl Taking Simvastatin Taking Levothyroxine Sodium 112mcg Taking Metformin & Diet Manage Prod 500mg Taking Omeprazole 20mg Taking Xarelto 10 MG Tablet 1 tablet with food Orally Once a dayTaking Extra Depth Orthopedic Shoes (1 Pair) with Customized Heat Molded Multidensity Innersoles (3 Pair) as directed Dx: NIDDM/Polyneuropathy (E11.42), Hammertoe Foot Deformity (M20.41,M20.42), Preulcerative Skin Lesion(s) (L85.1Not-Taking/PRNMounjaro 2.5 MG/0.5ML Solution Pen-injector as directed Lisinopril 40 MG Tablet 1 tablet Orally Once a dayExtra Depth Orthopedic Shoes (1 Pair) with Customized Heat Molded Multidensity Innersoles (3 Pair) as directed Dx: NIDDM/Polyneuropathy (E11.42), Hammertoe Foot Deformity (M20.41,M20.42), Preulcerative Skin Lesion(s) (L85.1Extra Depth Orthopedic Shoes (1 Pair) with Customized Heat Molded Multidensity Innersoles (3 Pair) as directed Dx: NIDDM/Polyneuropathy (E11.42), Hammertoe Foot Deformity (M20.41,M20.42), Preulcerative Skin Lesion(s) (L85.1Extra Depth Orthopedic Shoes (1 Pair) with Customized Heat Molded Multidensity Innersoles (3 Pair) as directed Dx: NIDDM/Polyneuropathy (E11.42), Hammertoe Foot Deformity (M20.41,M20.42), Preulcerative Skin Lesion(s) (L85.1Trulicity 3 MG/0.5ML Solution Pen-injector as directed Subcutaneous Fondaparinux Sodium 10 MG/0.8ML Solution INJECT CONTENTS OF 1 SYRINGE SUBCUTANEOUSLY DAILY FOR 5 DAYS DIRECTED UNTIL INR OVER 2 Subcutaneous Fluoxetine Lisinopril 30mg Byetta 5 MCG Pen Insulin metFORMIN HCl ER 500 MG Tablet Extended Release 24 Hour 1 tablet with evening meal Orally Once a dayChlorthalidone 25 MG Tablet 1 tablet in the morning Orally Once a dayFLUoxetine HCl 40 MG Capsule 1 capsule in the morning Orally Once a dayTriamcinolone Acetonide 0.1 % Cream 1 application to affected area Externally Twice a dayBD Pen Mini Miscellaneous as directed baby asprin as directed Byetta 10 MCG Pen 10 MCG/0.04ML Solution 0.02 ml up to 1 hour before breakfast and evening meal Subcutaneous Twice a dayLantus 100 UNIT/ML Solution 0.02 ml Subcutaneous Once a dayWarfarin Sodium 5 MG Tablet TAKE 1 TO 2 TABLETS BY MOUTH EVERY DAY DIRECTED Oral Medication List reviewed and reconciled with the patientNot-Taking/PRN Mounjaro 2.5 MG/0.5ML Solution Pen-injector as directed Not-Taking/PRN Lisinopril 40 MG Tablet 1 tablet Orally Once a dayNot-Taking/PRN Extra Depth Orthopedic Shoes (1 Pair) with Customized Heat Molded Multidensity Innersoles (3 Pair) as directed Dx: NIDDM/Polyneuropathy (E11.42), Hammertoe Foot Deformity (M20.41,M20.42), Preulcerative Skin Lesion(s) (L85.1Not-Taking/PRN Extra Depth Orthopedic Shoes (1 Pair) with Customized Heat Molded Multidensity Innersoles (3 Pair) as directed Dx: NIDDM/Polyneuropathy (E11.42), Hammertoe Foot Deformity (M20.41,M20.42), Preulcerative Skin Lesion(s) (L85.1Not-Taking/PRN Extra Depth Orthopedic Shoes (1 Pair) with Customized Heat Molded Multidensity Innersoles (3 Pair) as directed Dx: NIDDM/Polyneuropathy (E11.42), Hammertoe Foot Deformity (M20.41,M20.42), Preulcerative Skin Lesion(s) (L85.1Not-Taking/PRN Trulicity 3 MG/0.5ML Solution Pen-injector as directed Subcutaneous Not-Taking/PRN Fondaparinux Sodium 10 MG/0.8ML Solution INJECT CONTENTS OF 1 SYRINGE SUBCUTANEOUSLY DAILY FOR 5 DAYS DIRECTED UNTIL INR OVER 2 Subcutaneous Not-Taking/PRN Fluoxetine Not-Taking/PRN Lisinopril 30mg Not- Taking/PRN Byetta 5 MCG Pen Not-Taking/PRN Insulin Not-Taking/PRN metFORMIN HCl ER 500 MG Tablet Extended Release 24 Hour 1 tablet with evening meal Orally Once a dayNot- Taking/PRN Chlorthalidone 25 MG Tablet 1 tablet in the morning Orally Once a dayNot- Taking/PRN FLUoxetine HCl 40 MG Capsule 1 capsule in the morning Orally Once a dayNot- Taking/PRN Triamcinolone Acetonide 0.1 % Cream 1 application to affected area Externally Twice a dayNot-Taking/PRN BD Pen Mini Miscellaneous as directed Not-Taking/PRN baby asprin as directed Not-Taking/PRN Byetta 10 MCG Pen 10 MCG/0.04ML Solution 0.02 ml up to 1 hour before breakfast and evening meal Subcutaneous Twice a dayNot-Taking/PRN Lantus 100 UNIT/ML Solution 0.02 ml Subcutaneous Once a dayNot-Taking/PRN Warfarin Sodium 5 MG Tablet TAKE 1 TO 2 TABLETS BY MOUTH EVERY DAY DIRECTED Oral Medication List reviewed and reconciled with the patient * Allergies:?Inderal LA: hives Beta Adrenergic Blockers: hivesyes[Allergies Verified] Objective: * Vitals:?Ht:5ft 4in, Wt:168, BMI:28.83, Shoe size:7.5, BS:99, Ht-cm: 162.56 cm, Wt-k.2 kg. * ???Past Orders: ???Lab:HEMOGLOBIN A1C (GLYCO HEMOGLOBIN) (Order Date - 07/21/2023) (Collection Date - 07/21/2023) ? Value Reference Range ?TOTAL HEMOGLOBIN (HGBA1C) 5.7 * Examination: ???Ophthalmology Referral: ?DIABETES EYE EXAM?Neurological: ?SENSORY:?Neurological exam demonstrates, reduced light touch sensation, reduced sharp/dull pin prick discrimination , reduced vibration sensation, 5.07 monofilament test performed at plantar aspects of 5 varied sites per foot shows sensation, reduced , at Forefoot, B/L , Pt relates ,cont.?anesthesia.?Vascular: ?DP PULSES(B):?2/4,B/L.?PT PULSES(B):?2/4,B/L.?Dermatologic: ?SKIN FINDINGS:?Skin exam reveals keratotic lesion(s) located at, Heel(s), B/L, T4, T9, , Midfoot , Right.?VERRUCA:?single , round, raised, flat-topped, petechial bleeding papulae(s), with cauliflower appearance and interrruption of skin lines, with pain to both direct and lateral compression, and size estimated at 1mm, plantar Midfoot, LEFT.?Nails: ?NAILS are:?Elongated, overgrown, dystrophic, ?1-4 B/L.? Assessment: * Assessment: 1.?Type 2 diabetes mellitus with diabetic polyneuropathy - E11.42 (Primary)?2.?Other viral warts - B07.8?3.?Pain in left foot - M79.672? Plan: * Treatment: 2.?Other viral warts?Procedure: 22415-Vgxc Destruction, 1-14 * Procedures:?Keratoma Treatment:?Parring or Cutting of Benign Hyperkeratotic Lesion(s)?17829 ( More than 4 Lesions ) - The Benign hyperkeratotic lesions, as described above were pared, and/or cut utilizing a sterile 15 blade, tissue nippers, and/or dremel.?Wart Treatment:?Procedure?Verrucae(s) were debrided to pin-point bleeding margins with sterile surgical blade, silver nitrate chemocautery applied, recomm. immune-boosting meds such as zinc, recomm. follow up with topical chemosurgical agents, Pt AGAIN, defers any other forms of tx (26486), DIABETES: Any more invasive procedure to wart deferred due to diabetes risk.?Nail Reduction:?Nail Reduction?Trimming of dystrophic nails performed to reduce/remove overall nail length and girth, by manual and electrical means with use of a nail nipper and/or dremel, to more viable healthy nail plate or bed tissue 6-10 (G0127).? * Procedure Codes:?G0127 SOFY ING DYSTROPHIC NAILS ANY #, Modifiers: XS 34128 Wart Destruction, 1-14, Modifiers: XS 26319 TRIM SKIN LESIONS, OVER 4, Modifiers: XS * Follow Up:?prn * Images: * Sign off status: Completed true * Provider:?Sadie Jang DPM Date:?2023 Generated for Madison christie/Natalia/eTransmitting on:?01/21/2024 11:52 PM EST History and Physical Notes * HPI (History of Present Illness) Category Sub-Category Detail Notes Category Not es At Risk footcare Pt States Last PCP Visit: Date: Examination Category Sub-Category Detail Notes Category Not es Neurological SENSORY: Neurological exa m demonstrates, reduced light touch sensation, reduced sharp/dull pin prick discrimination , reduced vibration sensation, 5.07 monofilament test performed at plantar aspects of 5 varied sites per foot shows sensation, reduced , at Forefoot, B/L , Pt relates ,cont. anesthesia Dermatologic SKIN FINDINGS: Skin exam reveal s keratotic lesion(s) located at, Heel(s), B/L, T4, T9, , Midfoot , Right VERRUCA: single , round, rais ed, flat-topped, petechial bleeding papulae(s), with cauliflower appearance and interrruption of skin lines, with pain to both direct and lateral compression, and size estimated at 1mm, plantar Midfoot, LEFT Ophthalmology Referral DIABETES EYE EXAM Diabeti c Retinopathy Screening:: Yes 06/2023 Vascular DP PULSES(B): 2/4, B/L PT PULSES(B): 2/4, B/L Nails NAILS are: Elongated, overgrown, dystro phic, 1-4 B/L
--- OUTSIDE RECORDS SUMMARY | 2024-01-21 23:53 | XMS_ITS | Patient Health Record ---
Author Organization [facility] Address [address] [place] [address] Care Team Providers Care Roll Forming Machine Operator Name Role Phone Shawn Omer MD Primary Care Provider Unavaila ble Black, Sadie Unavailable [phone] Allergies Allergen (clinical drug ingredient) Drug/Non Drug Allergy documented on EMR Reaction Allergy Type Onset Date Status propranolol Inderal LA hives Drug Allergy Acti ve Substance with beta adrenergic receptor antagonist mechanism of action (substance) Beta Adrenergic Blockers hives Drug Allergy Active Results Component Value Reference Range Notes HEMOGLOBIN A1C (GLYCOHEMOGLO BIN) Reviewed date:03/24/2023 01:18:16 PM Interpretation: Performing Lab: Notes/Report: HEMOGLOBIN A1C % (HH) 6.0 HEMOGLOBIN A1C (GLYCOHEMOGLO BIN) Reviewed date:11/25/2023 09:10:39 AM Interpretation: Performing Lab: Notes/Report: TOTAL HEMOGLOBIN (HGBA1C) 5.7 HEMOGLOBIN A1C (GLYCOHEMOGLO BIN) Reviewed date:06/23/2023 09:07:59 AM Interpretation: Performing Lab: Notes/Report: HEMOGLOBIN A1C % (HH) 6.1 Reason For Referral No Information Medications Medication SIG (Take, Route, Frequency, Duration) Notes Start Date End Date Status Extra Depth Orthopedic Shoes (1 Pair) with [...] Deformity (M20.41,M20.42), Preulcerative Skin Lesion(s) (L85.1 Not-Taking Fondaparinux Sodium 10 MG/0.8ML INJECT CONTENTS OF 1 SYRINGE SUBCUTANEOUSLY DAILY FOR 5 DAYS DIRECTED UNTIL INR OVER 2 Subcutaneous for 5 Not-Taking Fluoxetine Not-Takin g Extra Depth Orthopedic Shoes (1 Pair) with Customized Heat Molded Multidensity Innersoles (3 Pair) as directed Dx: NIDDM/Polyneuropathy (E11.42), Hammertoe Foot Deformity (M20.41,M20.42), Preulcerative Skin Lesion(s) (L85.1 08/23/2021 Not-Taking Trulicity 3 MG/0.5ML as directed Subcutaneous Not-Taking Entresto Active Insulin Not-Taking Jardiance Active metFORMIN HCl ER 500 MG 1 tablet with ev ening meal Orally Once a day for 30 day(s) Not-Taking Ferrous Gluconate Ac tive Lisinopril 30mg Not- Taking Ozempic Active Byetta 5 MCG Pen Not -Taking Metoprolol Succinate ER 25 MG TAKE 1 TABLET BY MOUTH AT BEDTIME Oral for 30 Active Nortripytline HCl Ac tive Lasix 20 MG 1 tablet Orally Once a day for 30 days Active Chlorthalidone 25 MG 1 tablet in the mor royal Orally Once a day for 30 day(s) Not-Taking Emgality 120 MG/ML as directed Subcutaneous Active FLUoxetine HCl 40 MG 1 capsule in the mo rning Orally Once a day for 30 day(s) Not-Taking Triamcinolone Acetonide 0.1 % 1 application to affected area Externally Twice a day Not-Taking Levothyroxine Sodium 112mcg Active Byetta 10 MCG Pen 10 MCG/0.04ML 0.02 ml up to 1 hour before breakfast and evening meal Subcutaneous Twice a day for 30 day(s) Not-Taking Metformin & Diet Manage Prod 500mg Active Lantus 100 UNIT/ML 0.02 ml Subcutaneous Once a day for 30 day(s) Not-Kang ing BD Pen Mini as directed Not-Ta roberto Simvastatin Active baby asprin as directed Not-Ta Extra Depth Orthopedic Shoes (1 Pair) with Customized Heat Molded Multidensity Innersoles (3 Pair) as directed Dx: NIDDM/Polyneuropathy (E11.42), Hammertoe Foot Deformity (M20.41,M20.42), Preulcerative Skin Lesion(s) (L85.1 09/19/2022 Active Mounjaro 2.5 MG/0.5ML as directed Not-Taking Omeprazole 20mg Acti ve Warfarin Sodium 5 MG TAKE 1 TO 2 TABLETS BY MOUTH EVERY DAY DIRECTED Oral for 30 Not-Taking Xarelto 10 MG 1 tablet with food Orally Once a day for 30 day(s) Active Immunizations Vaccine Route Administration Date Status Comme nts COVID-19 Moderna Vaccine Unknown 04/11/2020 Administered COVID-19 Moderna Vaccine Unknown 11/27/2020 Administered First Dose: 04/18/20 Second Dose: 05/09/20 Influenza Unknown 11/10/2017 Administered Influenza Unknown 12/04/2018 Administered Influenza Unknown 11/08/2019 Administered Influenza Unknown 10/25/2020 Administered Influenza Unknown 10/10/2021 Administered Influenza Unknown 10/11/2022 Administered Social History Tobacco Use: Social History Observation [...] Are you an other tobacco user? No Problems Problem Type SNOMED Code ICD Code Onset Dates Problem Status W/U Status Risk Notes Problem Acquired hammer toe of right foot (0973314664926182 ) Other hammer toe(s) (acquired), right foot (M20.41) Active confirmed Problem Acquired hammer toe of left foot (5573656925235169 ) Other hammer toe(s) (acquired), left foot (M20.42) Active confirmed Problem Polyneuropathy due to type 2 diabetes mellitus (336419251) Type 2 diabetes mellitus with diabetic polyneuropathy (E11.42) Active confirmed Vital Signs Height 5ft 4in in 11/25/2023 Weight 168 lbs 11/25/2023 BMI 28.83 kg/m2 11/25/2023 Procedures Procedure Date Ordered Date Performed Result Body Sit e 24257-Yjks Destruction, 1-14 03/24/2023 N/A 50658-AOQJ SKIN LESIONS, OVER 4 03/24/2023 N/A P5127-KOQBHALM DYSTROPHIC NAILS ANY # 03/24/2023 N/A 92160-Snon Destruction, 1-14 06/23/2023 N/A 97798-KUWR SKIN LESIONS, OVER 4 06/23/2023 N/A V1069-YHVSWVJQ DYSTROPHIC NAILS ANY # 06/23/2023 N/A 71390-Mluz Destruction, 1-14 11/25/2023 N/A 65960-TJRI SKIN LESIONS, OVER 4 11/25/2023 N/A D8181-GEPNAEYW DYSTROPHIC NAILS ANY # 11/25/2023 N/A Encounters Encounter Location Date Provider Diagnosis [address] [address] 03/24/2023 Sadie Black Type 2 diabetes mellitus with diabetic polyneuropathy E11.42 ; Other viral warts B07.8 and Pain in left foot M79.672 [facility] [address] [address] 06/23/2023 Sadie Black Type 2 diabetes mellitus with diabetic polyneuropathy E11.42 ; Other viral warts B07.8 and Pain in left foot M79.672 [facility] [address] 11/25/2023 Sadie Black Type 2 diabetes mellitus with diabetic polyneuropathy E11.42 ; Other viral warts B07.8 and Pain in left foot M79.672 [facility] [address] 09/22/2023 Sadie Black Assessments Encounter Date Diagnosis (ICD Code) Assessment Notes Treatment Notes Treatment Clinical Notes Section Notes 03/24/2023 Type 2 diabetes mellitus with diabetic polyneuropathy (ICD-10 - E11.42) 06/23/2023 Type 2 diabetes mellitus with diabetic polyneuropathy (ICD-10 - E11.42) 11/25/2023 Type 2 diabetes mellitus with diabetic polyneuropathy (ICD-10 - E11.42) 11/25/2023 Other viral warts (ICD-10 - B07.8) 06/23/2023 Other viral warts (ICD-10 - B07.8) 03/24/2023 Other viral warts (ICD-10 - B07.8) 03/24/2023 Pain in left foot (ICD-10 - M79.672) 06/23/2023 Pain in left foot (ICD-10 - M79.672) 11/25/2023 Pain in left foot (ICD-10 - M79.672) Plan Of Treatment Pending Test Test Name Order Date 35912-LOACILT NAIL, 6 OR MORE 02/24/2013 97510-STFINZX NAIL, 6 OR MORE 08/16/2013 93888-ONSZBBC NAIL, 6 OR MORE 05/12/2013 89981-Tvpp Destruction, 1-14 06/03/2019 55620-Pgdm Destruction, 1-14 08/30/2019 70076-Mjft Destruction, 1-14 12/06/2019 90496-Pisb Destruction, -14 03/09/2020 45200-Iwjv Destruction, -14 06/08/2020 81609-Umsa Destruction, -14 09/11/2020 45207-Qapg Destruction, -14 12/21/2020 79787-Wroh Destruction, -14 04/16/2021 80250-Uqpe Destruction, -14 08/23/2021 72957-Zeca Destruction, -14 03/04/2022 81756-Irps Destruction, -14 06/06/2022 02477-Jqqb Destruction, -14 09/19/2022 13608-Quzc Destruction, -14 12/23/2022 82694-Sjou Destruction, -14 03/24/2023 33129-Gjpr Destruction, -14 06/23/2023 40468-Pqoy Destruction, -14 11/25/2023 86457-Mvxhyzfn Plate 06/06/2022 89534-Itvlfltg Plate 11/26/2021 12102-Meejgtbm Plate 12/21/2020 23533-Fgwhnbbs Plate 06/08/2020 09236-Ilgcjupy Plate 09/11/2020 92681-Tenvfpsb Plate 03/09/2020 77572-Bquiyvum Plate 05/12/2013 68511-Xukkjrfd Plate 08/16/2013 34591-Yrbzapls Plate 02/24/2013 44036-Ydavprfr Plate Each Additional 03/2013 48321-Kabenrdz Plate Each Additional 12/2020 73372-RNQD SKIN LESIONS, OVER 4 05/10/19 15 43209-ZOHE SKIN LESIONS, OVER 4 02/14/19 15 53330-BAMJ SKIN LESIONS, OVER 4 11/25/19 24 46117-DNIL SKIN LESIONS, OVER 4 06/23/19 24 56372-BBJL SKIN LESIONS, OVER 4 03/24/19 24 21879-VONJ SKIN LESIONS, 2 TO 4 09/20/19 64706-FQBQ SKIN LESIONS, 2 TO 4 06/07/19 74480-NGNX SKIN LESIONS, 2 TO 4 03/04/19 81021-UUOG SKIN LESIONS, 2 TO 4 09/12/19 24942-MZFV SKIN LESIONS, 2 TO 4 12/22/19 33123-QWOV SKIN LESIONS, 2 TO 4 11/27/19 63243-VNIJ SKIN LESIONS, 2 TO 4 08/24/19 98601-ISKS SKIN LESIONS, 2 TO 4 04/17/19 86062-FQZO SKIN LESIONS, 2 TO 4 02/23/19 36815-OCOY SKIN LESIONS, 2 TO 4 08/25/19 19 99566-YLWF SKIN LESIONS, 2 TO 4 06/09/19 21 79490-KKAY SKIN LESIONS, 2 TO 4 03/09/19 21 12100-TXVX SKIN LESIONS, 2 TO 4 12/06/19 20 00760-XDNL SKIN LESIONS, 2 TO 4 08/30/19 20 49748-QCYH SKIN LESIONS, 2 TO 4 06/03/19 20 47894-VESY SKIN LESIONS, 2 TO 4 11/27/19 19 91469-DSXM SKIN LESIONS, 2 TO 4 03/04/19 20 72974, T2233-NJVHA/INJECT, JOINT/BURSA 1 03/16/2012 S7669-JXOXMPLC DYSTROPHIC NAILS ANY # V5230-WJCJNXWA DYSTROPHIC NAILS ANY # E5391-DBNZRCRL DYSTROPHIC NAILS ANY # L1318-XOMVLVWT DYSTROPHIC NAILS ANY # Z2983-AGBSIWDB DYSTROPHIC NAILS ANY # I8358-SLNEKWSQ DYSTROPHIC NAILS ANY # N5479-REPOSQXO DYSTROPHIC NAILS ANY # O8110-MOJGQQDD DYSTROPHIC NAILS ANY # A4373-TJKMICOL DYSTROPHIC NAILS ANY # I8259-LZPROXQT DYSTROPHIC NAILS ANY # U5989-SISBNWEQ DYSTROPHIC NAILS ANY # L9226-YJGZVOQU DYSTROPHIC NAILS ANY # E8174-UDNMMASG DYSTROPHIC NAILS ANY # V2144-HYEKXYKA DYSTROPHIC NAILS ANY # Q1373-RBKNCEKJ DYSTROPHIC NAILS ANY # O3548-POMDDSXO DYSTROPHIC NAILS ANY # A5856-WYYWZHEK DYSTROPHIC NAILS ANY # U9176-TWNXXHXO DYSTROPHIC NAILS ANY # W5863-EEANJUKT DYSTROPHIC NAILS ANY # L0873-EHHQHPXZ DYSTROPHIC NAILS ANY # I4441-RJNGUJBF DYSTROPHIC NAILS ANY # V4935-AXJBITYG DYSTROPHIC NAILS ANY # D3815-BOUAZXQT DYSTROPHIC NAILS ANY # X ray : Ankle, right 3V 12/02/2012 Next Appt Details Provider Name:Sadie Jang , 02/26/2024 09:00:00 AM, [address] [place], [address], Insurance Providers Payer Name Payer Address Payer Phone Subscriber Number Group Number Insured Name Patient Relationship to Insured Coverage Start Date Coverage End Date Medicare [facility] [address] [place] [address] [id number] Elsa Rhodes Self - patient is the insured [employer] [address] [place] [address] [phone] [id number] Elsa Rhodes Self - patient is the insured Medical (General) History Medical History History ICD Code hypertension type II diabetes hyperlipidemia gallstones gastroesophageal reflux disease (GERD) sleep apnea kidney stones bronchospasms thyroid Pulmonary embolism left ankle Fx Cataracts Surgical History Surgery Date(Month/Year) lap band hysterectomy right carpal tunnel 11/2017 Tooth extraction 03/2023 cataract surgery 06/18/23 Colonoscopy 10/20/23 Hospitalization History Reason Date(Month/Year) Vasil/ Blood Pressure 03/28/21 [facility] - Low blood pressure- fluids replacement 10/31 C- low BP 04/06/20 [facility]- nausea,blo od pressure, vomiting, and [facility] - fell- fractured ankle 09/14/2019 [facility]- Ischemic bowel-4 day stay 9 [facility] - vomiting/diarrhea/dehydration 04/12- 04/16/18 Admitted to [facility]; pulminay emb sosa x 5 days 01/12/14-01/17/14
== END 2024-01-21 10:07 | disposition home or self-care (01) ==
PROVIDERS: PCP Internal Medicine; Visit Provider Internal Medicine Cardiovascular Disease
DX: I50.9 Heart failure, unspecified (principal)
CPT/HCPCS: 99214

== ENCOUNTER → 2024-01-21 09:43 | Outpatient (BNVA) | payer MEDICARE, SELFPAY | PROVIDERS: PCP Internal Medicine; Visit Provider Internal Medicine Cardiovascular Disease | DX: I50.9 Heart failure, unspecified (principal); I42.9 Cardiomyopathy, unspecified | CPT/HCPCS: 99212 ==

== ENCOUNTER → 2024-02-18 23:59 | Outpatient (BNV) | payer MEDICARE, SELFPAY ==
--- NOTE | 2024-02-29 18:33 | MHC.OFFVIS ---
Intake Visit Reasons: Remote HF monitoring- [employer] Allergies atenolol Allergy (Intermediate, Verified 10/23/22 11:17) hives Beta-Blockers (Beta-Adrenergic Bloc [BETA-BLOCKERS (BETA-ADRENERGIC BLOC] Allergy (Intermediate, Verified 10/23/22 11:17) HIVES vancomycin [VANCOMYCIN] Allergy (Intermediate, Verified 10/23/22 11:17) NAUSEA & VOMITING PFSH Medical History (Updated 09/22/23 @ 10:44 by Mariely Friedman CMA) Cataract (lens) fragments in eye following cataract surgery Hypothyroidism HLD (hyperlipidemia) HTN (hypertension) Ischemic bowel disease Bundle branch block, left Diabetes Abdominal migraine Pulmonary embolism Surgical History Status post biventricular cardiac pacemaker insertion LAP-BAND surgery status History of partial hysterectomy Family History Father CVD (cardiovascular disease) Diabetes Mother Diabetes Mitral valve prolapse Social History Alcohol intake: never Patient Tobacco Use Status: Never used Tobacco service: No Current occupational status: retired Office Procedures Cardiac Device Check Cardiac Device Check Details: HF monitoring Stable thoracic impedance. 87437-Iiqiux Cardiac Device Interrogation, cardio physiologic monitor Procedure code (CPT) selection complete Assessment & Plan Assessment & Plan (1) Chronic heart failure: Code(s): I50.9 - Heart failure, unspecified Category: Medical Plan Coding Level of Care Code Procedure Only Diagnoses Chronic heart failure I50.9 CPT Codes Cardiac Device Check - Cardiac Device 15: 63428-Xpmxpk Cardiac Device Interrogation, cardio physiologic monitor ([id number])
== END ==
PROVIDERS: PCP Internal Medicine; Visit Provider Internal Medicine Cardiovascular Disease
DX: I50.9 Heart failure, unspecified (principal); Z95.810 Presence of automatic (implantable) cardiac defibrillator
CPT/HCPCS: 93297

== ENCOUNTER → 2024-02-18 23:59 | Outpatient (BNV) | payer MEDICARE, SELFPAY ==
--- NOTE | 2024-02-29 18:23 | MHC.OFFVIS ---
Intake Visit Reasons: Remote device check- [employer] Allergies atenolol Allergy (Intermediate, Verified 10/23/22 11:17) hives Beta-Blockers (Beta-Adrenergic Bloc [BETA-BLOCKERS (BETA-ADRENERGIC BLOC] Allergy (Intermediate, Verified 10/23/22 11:17) HIVES vancomycin [VANCOMYCIN] Allergy (Intermediate, Verified 10/23/22 11:17) NAUSEA & VOMITING PFSH Medical History (Updated 09/22/23 @ 10:44 by Mariely Friedman CMA) Cataract (lens) fragments in eye following cataract surgery Hypothyroidism HLD (hyperlipidemia) HTN (hypertension) Ischemic bowel disease Bundle branch block, left Diabetes Abdominal migraine Pulmonary embolism Surgical History Status post biventricular cardiac pacemaker insertion LAP-BAND surgery status History of partial hysterectomy Family History Father CVD (cardiovascular disease) Diabetes Mother Diabetes Mitral valve prolapse Social History Alcohol intake: never Patient Tobacco Use Status: Never used Tobacco service: No Current occupational status: retired Office Procedures Cardiac Device Check Cardiac Device Check Details: BiV AICD Good battery life. BiV paced 98%. 15032-Mdrsra Cardiac Device Interrogation, pacemaker or defibrillator Procedure code (CPT) selection complete Assessment & Plan Assessment & Plan (1) Chronic heart failure: Code(s): I50.9 - Heart failure, unspecified Category: Medical Plan Coding Level of Care Code Procedure Only Diagnoses Chronic heart failure I50.9 CPT Codes Cardiac Device Check - Cardiac Device 14: 44929-Yjzfcv Cardiac Device Interrogation, pacemaker or defibrillator ([id number])
== END ==
PROVIDERS: PCP Internal Medicine; Visit Provider Internal Medicine Cardiovascular Disease
DX: I50.9 Heart failure, unspecified (principal); Z95.810 Presence of automatic (implantable) cardiac defibrillator
CPT/HCPCS: 93295

== ENCOUNTER → 2024-03-19 23:59 | Outpatient (BNV) | payer MEDICARE, SELFPAY ==
--- NOTE | 2024-03-22 08:45 | MHC.OFFVIS ---
Intake Visit Reasons: Remote HF monitoring- [employer] Allergies atenolol Allergy (Intermediate, Verified 10/23/22 11:17) hives Beta-Blockers (Beta-Adrenergic Bloc [BETA-BLOCKERS (BETA-ADRENERGIC BLOC] Allergy (Intermediate, Verified 10/23/22 11:17) HIVES vancomycin [VANCOMYCIN] Allergy (Intermediate, Verified 10/23/22 11:17) NAUSEA & VOMITING PFSH Medical History (Updated 09/22/23 @ 10:44 by Mariely Friedman CMA) Cataract (lens) fragments in eye following cataract surgery Hypothyroidism HLD (hyperlipidemia) HTN (hypertension) Ischemic bowel disease Bundle branch block, left Diabetes Abdominal migraine Pulmonary embolism Surgical History Status post biventricular cardiac pacemaker insertion LAP-BAND surgery status History of partial hysterectomy Family History Father CVD (cardiovascular disease) Diabetes Mother Diabetes Mitral valve prolapse Social History Alcohol intake: never Patient Tobacco Use Status: Never used Tobacco service: No Current occupational status: retired Office Procedures Cardiac Device Check Cardiac Device Check Details: HF monitoring Stable thoracic impedance. Bi V paced 98.5 %. 61025-Uanqij Cardiac Device Interrogation, cardio physiologic monitor Procedure code (CPT) selection complete Assessment & Plan Assessment & Plan (1) Chronic heart failure: Code(s): I50.9 - Heart failure, unspecified Category: Medical Plan Orders: Orders AMB Cardiac Device Follow-up 03/19/24 I48.0 - Paroxysmal atrial fibrillation Coding Level of Care Code Procedure Only Diagnoses Chronic heart failure I50.9 CPT Codes Cardiac Device Check - Cardiac Device 15: 74045-Rnmkyx Cardiac Device Interrogation, cardio physiologic monitor ([id number])
== END ==
PROVIDERS: PCP Internal Medicine; Visit Provider Internal Medicine Cardiovascular Disease
DX: I50.9 Heart failure, unspecified (principal); Z95.0 Presence of cardiac pacemaker
CPT/HCPCS: 93297

== ENCOUNTER → 2024-04-19 23:59 | Outpatient (BNV) | payer MEDICARE, SELFPAY ==
--- NOTE | 2024-05-05 09:04 | A.OFFVIS_ITS ---
Intake Visit Reasons: Remote HF monitoring- [employer] Allergies atenolol Allergy (Intermediate, Verified 10/23/22 11:17) hives Beta-Blockers (Beta-Adrenergic Bloc [BETA-BLOCKERS (BETA-ADRENERGIC BLOC] Allergy (Intermediate, Verified 10/23/22 11:17) HIVES vancomycin [VANCOMYCIN] Allergy (Intermediate, Verified 10/23/22 11:17) NAUSEA & VOMITING PFSH Medical History (Updated 09/22/23 @ 10:44 by Mariely Friedman CMA) Cataract (lens) fragments in eye following cataract surgery Hypothyroidism HLD (hyperlipidemia) HTN (hypertension) Ischemic bowel disease Bundle branch block, left Diabetes Abdominal migraine Pulmonary embolism Surgical History Status post biventricular cardiac pacemaker insertion LAP-BAND surgery status History of partial hysterectomy Family History Father CVD (cardiovascular disease) Diabetes Mother Diabetes Mitral valve prolapse Social History Alcohol intake: never Patient Tobacco Use Status: Never used Tobacco service: No Current occupational status: retired Office Procedures Cardiac Device Check Cardiac Device Check Details: HF monitoring Stable thoracic impedance V paced 98%. 96433-Mkzysc Cardiac Device Interrogation, pacemaker Procedure code (CPT) selection complete Assessment & Plan Assessment & Plan (1) Chronic heart failure: Code(s): I50.9 - Heart failure, unspecified Category: Medical Plan: Coding Level of Care Code Procedure Only Diagnoses Chronic heart failure I50.9 CPT Codes Cardiac Device Check - Cardiac Device 12: 95969-Kjwamv Cardiac Device Interroga tion, pacemaker ([id number])
== END ==
PROVIDERS: PCP Internal Medicine; Visit Provider Internal Medicine Cardiovascular Disease
DX: I50.9 Heart failure, unspecified (principal); Z95.810 Presence of automatic (implantable) cardiac defibrillator
CPT/HCPCS: 93297

== ENCOUNTER → 2024-05-19 23:59 | Outpatient (BNV) | payer MEDICARE, SELFPAY ==
--- NOTE | 2024-06-06 21:29 | A.OFFVIS_ITS ---
Intake Visit Reasons: REmote HF monitoring- [employer] Allergies atenolol Allergy (Intermediate, Verified 10/23/22 11:17) hives Beta-Blockers (Beta-Adrenergic Bloc [BETA-BLOCKERS (BETA-ADRENERGIC BLOC] Allergy (Intermediate, Verified 10/23/22 11:17) HIVES vancomycin [VANCOMYCIN] Allergy (Intermediate, Verified 10/23/22 11:17) NAUSEA & VOMITING PFSH Medical History (Updated 09/22/23 @ 10:44 by Mariely Friedman CMA) Cataract (lens) fragments in eye following cataract surgery Hypothyroidism HLD (hyperlipidemia) HTN (hypertension) Ischemic bowel disease Bundle branch block, left Diabetes Abdominal migraine Pulmonary embolism Surgical History Status post biventricular cardiac pacemaker insertion LAP-BAND surgery status History of partial hysterectomy Family History Father CVD (cardiovascular disease) Diabetes Mother Diabetes Mitral valve prolapse Social History Alcohol intake: never Patient Tobacco Use Status: Never used Tobacco service: No Current occupational status: retired Office Procedures Cardiac Device Check Cardiac Device Check Details: HF monitoring Stable thoracic impedance. 62173-Laqwmg Cardiac Device Interrogation, cardio physiologic monitor Procedure code (CPT) selection complete Assessment & Plan Assessment & Plan (1) Chronic heart failure: Code(s): I50.9 - Heart failure, unspecified Category: Medical Plan: Coding Level of Care Code Procedure Only Diagnoses Chronic heart failure I50.9 CPT Codes Cardiac Device Check - Cardiac Device 15: 17863-Jcnbwn Cardiac Device Inte rrogation, cardio physiologic monitor ([id number])
== END ==
PROVIDERS: PCP Internal Medicine; Visit Provider Internal Medicine Cardiovascular Disease
DX: I50.9 Heart failure, unspecified (principal); Z95.810 Presence of automatic (implantable) cardiac defibrillator
CPT/HCPCS: 93297

== ENCOUNTER → 2024-05-19 23:59 | Outpatient (BNV) | payer MEDICARE, SELFPAY ==
--- NOTE | 2024-06-06 21:31 | MHC.OFFVIS ---
Intake Visit Reasons: Remote device check- [employer] Allergies atenolol Allergy (Intermediate, Verified 10/23/22 11:17) hives Beta-Blockers (Beta-Adrenergic Bloc [BETA-BLOCKERS (BETA-ADRENERGIC BLOC] Allergy (Intermediate, Verified 10/23/22 11:17) HIVES vancomycin [VANCOMYCIN] Allergy (Intermediate, Verified 10/23/22 11:17) NAUSEA & VOMITING PFSH Medical History (Updated 09/22/23 @ 10:44 by Mariely Friedman CMA) Cataract (lens) fragments in eye following cataract surgery Hypothyroidism HLD (hyperlipidemia) HTN (hypertension) Ischemic bowel disease Bundle branch block, left Diabetes Abdominal migraine Pulmonary embolism Surgical History Status post biventricular cardiac pacemaker insertion LAP-BAND surgery status History of partial hysterectomy Family History Father CVD (cardiovascular disease) Diabetes Mother Diabetes Mitral valve prolapse Social History Alcohol intake: never Patient Tobacco Use Status: Never used Tobacco service: No Current occupational status: retired Office Procedures Cardiac Device Check Cardiac Device Check Details: [employer]-D Good battery No new alerts. 59658-Sajdzp Cardiac Device Interrogation, pacemaker or defibrillator Procedure code (CPT) selection complete Assessment & Plan Assessment & Plan (1) Chronic heart failure: Code(s): I50.9 - Heart failure, unspecified Category: Medical Plan: Coding Level of Care Code Procedure Only Diagnoses Chronic heart failure I50.9 CPT Codes Cardiac Device Check - Cardiac Device 14: 82248-Wistzv Cardiac Device Interrogation, pacemaker or defibrillator ([id number])
== END ==
PROVIDERS: PCP Internal Medicine; Visit Provider Internal Medicine Cardiovascular Disease
DX: I50.9 Heart failure, unspecified (principal); Z95.810 Presence of automatic (implantable) cardiac defibrillator
CPT/HCPCS: 93295

== ENCOUNTER → 2024-06-21 23:59 | Outpatient (BNV) | payer MEDICARE, SELFPAY ==
--- NOTE | 2024-07-23 10:31 | MHC.OFFVIS ---
Intake Visit Reasons: Remote device check- [employer] Allergies atenolol Allergy (Intermediate, Verified 07/22/24 14:04) hives Beta-Blockers (Beta-Adrenergic Bloc [BETA-BLOCKERS (BETA-ADRENERGIC BLOC] Allergy (Intermediate, Verified 07/22/24 14:04) HIVES vancomycin [VANCOMYCIN] Allergy (Intermediate, Verified 07/22/24 14:04) NAUSEA & VOMITING PFSH Medical History Cataract (lens) fragments in eye following cataract surgery Hypothyroidism HLD (hyperlipidemia) HTN (hypertension) Ischemic bowel disease Bundle branch block, left Diabetes Abdominal migraine Pulmonary embolism Surgical History Status post biventricular cardiac pacemaker insertion LAP-BAND surgery status History of partial hysterectomy Family History Father CVD (cardiovascular disease) Diabetes Mother Diabetes Mitral valve prolapse Social History Alcohol intake: never Patient Tobacco Use Status: Never used Tobacco service: No Current occupational status: retired Office Procedures Cardiac Device Check Cardiac Device Check Details: HF monitoring Stable thoracic impedance. 41295-Fsbatq Cardiac Device Interrogation, cardio physiologic monitor Procedure code (CPT) selection complete Assessment & Plan Assessment & Plan (1) Chronic heart failure: Code(s): I50.9 - Heart failure, unspecified Category: Medical Plan Coding Level of Care Code Procedure Only Diagnoses Chronic heart failure I50.9 CPT Codes Cardiac Device Check - Cardiac Device 15: 24095-Aorxyz Cardiac Device Interrogation, cardio physiologic monitor ([id number])
== END ==
PROVIDERS: PCP Internal Medicine; Visit Provider Internal Medicine Cardiovascular Disease
DX: I50.9 Heart failure, unspecified (principal); Z95.810 Presence of automatic (implantable) cardiac defibrillator
CPT/HCPCS: 93297

== ENCOUNTER 2024-07-12 08:54 | Outpatient (AMB) | payer MEDICARE, SELFPAY ==
--- NOTE | 2024-07-12 09:04 | A.OFFVIS_ITS ---
Vital Signs 07/12/24 09:06 Height 5 ft 4 in Weight 156 lb 15.506 oz BMI 26.9 BP 110/62 Blood Pressure Location Lt brachial Position Sitting Pulse 77 Pulse Source Monitor Intake Visit Reasons: 6 mth f/up Intake Note: 6 mth f/up Manager Customer Service Required: No Accompanied by: Self / Same As Patient Allergies atenolol Allergy (Intermediate, Verified 10/23/22 11:17) hives Beta-Blockers (Beta-Adrenergic Bloc [BETA-BLOCKERS (BETA-ADRENERGIC BLOC] Allergy (Intermediate, Verified 10/23/22 11:17) HIVES vancomycin [VANCOMYCIN] Allergy (Intermediate, Verified 10/23/22 11:17) NAUSEA & VOMITING Medication List - Last Reconciled 07/12/24 by Toby Nelson MD blood sugar diagnostic ([email or web address] Verio test strips) use as directed to test once daily chlorhexidine gluconate 0.12% mL PO DAILY cholecalciferol (vitamin D3) 25 mcg PO DAILY cholestyramine (with sugar) 4 gram 4 grams PO SUTUTHSA@0900 empagliflozin (Jardiance) 10 mg PO DAILY 90 days ferrous sulfate 325 mg PO DAILY fluoride (sodium) 1.1% PO DAILY fluoxetine 10 mg PO BEDTIME furosemide 20 mg PO DAILY galcanezumab-gnlm (Emgality) 120 mg subcut Q30D hyoscyamine sulfate 0.125 mg sublingual DAILY PRN levothyroxine 112 mcg PO MOTUWETHFRSA@0630 metformin ER 1,000 mg PO BID metoprolol succinate ER 25 mg PO DAILY nortriptyline 50 mg PO BEDTIME omeprazole 20 mg PO DAILY ondansetron 8 mg PO Q8H PRN rimegepant (Nurtec ODT) 75 mg PO Q OTHER DAY PRN rivaroxaban (Xarelto) 20 mg PO DAILY@1700 sacubitril-valsartan 49-51 mg (Entresto) 1 tab PO BID semaglutide (Ozempic) 0.5 mg subcut QWEEK simvastatin 20 mg PO BEDTIME HPI Comments Details: 74-year-old female who is here for follow-up. She has background history of nonischemic cardiomyopathy which was thought to be related to left bundle-branch block. She underwent cardiac catheterization which did not show any coronary disease. She underwent FIBRE OPTIC CABLE SPLICER in April 2021. With guideline directed medical therapy and cardiac resynchronization therapy-her ejection fraction improved from 20-25% to 50-55%. She still has significant dyssynchrony by echocardiography but overall ejection fraction is improved. Clinically she has been stable and does not have any significant CHF symptoms. She has been doing well. She has no chest pain shortness of breath. No orthopnea PND. Taking medications regularly. No peripheral edema. She previously was getting abdominal migraines with significant diarrhea leading to vasovagal syncope. She had 1 episode in May which she had abdominal gurgling but did not have any hypotension and she did hydration and did not have any syncope this time. Overall she has been doing well and is clinically quite stable. Her ejection fraction based on repeat echocardiography in April was normal. 10/23/22: She returns for follow-up. She is doing well. No chest discomfort shortness of breath. Has been walking up to 2 miles per day without any significant issues. Blood pressure control is good. Tolerating medications well. 03/17/2023: She returns for follow-up. She recently had pneumonia and was treated with antibiotics. She said she was feeling short of breath before that but this has improved. He had blood workup which showed normal BNP level and slightly elevated triglycerides at 200. She said this was a nonfasting blood test. Otherwise she has been doing great and has no exertional complaints. Only thing she has notices that she gets tired easily but she does not exercise regularly. 09/22/2023: She is here for f/u. Doing very well. Clinically euvolemic. Taking meds and tolerating. 01/21/24: She is here for follow-up. She is been doing well. Clinically stable and has no heart failure symptoms. Doing quite well and is planning to start doing some voluntary work at [facility]. 07/12/2024: Here for follow-up. She has been doing well. 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 She has no chest pains or shortness of breath. Euvolemic at this stage and tolerating medications. [facility] Medical History Cataract (lens) fragments in eye following cataract surgery Hypothyroidism HLD (hyperlipidemia) HTN (hypertension) Ischemic bowel disease Bundle branch block, left Diabetes Abdominal migraine Pulmonary embolism Surgical History Status post biventricular cardiac pacemaker insertion LAP-BAND surgery status History of partial hysterectomy Family History Father CVD (cardiovascular disease) Diabetes Mother Diabetes Mitral valve prolapse Social History Alcohol intake: never Patient Tobacco Use Status: Never used Tobacco service: No Current occupational status: retired Review of Systems Const Denies chills, Denies fatigue, Denies fever(s), Denies frequent falls, Denies weakness, Denies weight gain and Denies weight loss ENT Denies dizziness Card Denies chest pain, Denies leg edema, Denies lightheadedness, Denies palpitations, Denies dyspnea and Denies dyspnea on exertion Resp Denies cough, Denies dyspnea and Denies dyspnea on exertion GI Denies hematochezia Musc Denies abnormal gait, Denies muscle weakness, Denies numbness, Denies radiating pain into limb and Denies tingling Neuro Denies abnormal gait, Denies dizziness, Denies frequent falls, Denies numbness, Denies tingling and Denies weakness Endo Denies fatigue and Denies palpitations Physical Exam Vital Signs: Last Vital Signs Pulse 77 07/12/24 09:06 BP 110/62 07/12/24 09:06 BMI result Body Mass Index 26.9 GENERAL APPEARANCE: in no acute distress, pleasant. NECK: no carotid bruit, no jugular venous distention. SKIN: no suspicious lesions, warm and dry. HEART: no murmurs, regular rate and rhythm. LUNGS: clear to auscultation bilaterally. ABDOMEN: soft, nontender. EXTREMITIES: no edema. PERIPHERAL PULSES: equal. NEUROLOGIC: No gross deficits, AAO X 3 Office Procedures EKG Details: Sinus rhythm 77 beats per minute, a sensed V paced, normal axis, QTC 448 milliseconds. 01907-Veeukjviqlnbzladn, Complete Assessment & Plan Assessment & Plan (1) Chronic heart failure: Code(s): I50.9 - Heart failure, unspecified Category: Medical Plan Very pleasant 74-year-old female who is here for follow-up. She has been doing well at this stage. No chest discomfort or shortness of breath. Clinically stable and euvolemic. I have advised her to continue same medications at this point. Cardiomyopathy was due to left bundle branch block and with cardiac resynchronization therapy the ejection fraction has improved. Follow-up in 6 months. Thank you for allowing me to participate in the care of your patient. Please feel free to contact me if you have any questions. Coding Level of Care Code Est Pt Level 3 (43339) Diagnoses Chronic heart failure I50.9 CPT Codes EKG - CPT: 01247-Mfjtwdtcvaceqqnkg, Complete ([id number])
[2024-07-12 09:06] VITALS: BP 110/62; PULSE 77; BMI 26.9
--- OUTSIDE RECORDS SUMMARY | 2024-07-12 09:23 | XMS_ITS | Patient Health Record ---
Author Organization [facility] Address [address] [place] [address] Care Team Providers Care Entertainment Usher Name Role Phone Shawn Omer MD Primary Care Provider Unavaila ble Black, Sadie Unavailable [phone] Allergies Allergen (clinical drug ingredient) Drug/Non Drug Allergy documented on EMR Reaction Allergy Type Onset Date Status propranolol Inderal LA hives Drug Allergy Acti ve Substance with beta adrenergic receptor antagonist mechanism of action (substance) Beta Adrenergic Blockers hives Drug Allergy Active Results Component Value Reference Range Notes HEMOGLOBIN A1C (GLYCOHEMOGLO BIN) Reviewed date:11/25/2023 09:10:39 AM Interpretation: Performing Lab: Notes/Report: TOTAL HEMOGLOBIN (HGBA1C) 5.7 HEMOGLOBIN A1C (GLYCOHEMOGLO BIN) Reviewed date:02/26/2024 09:03:15 AM Interpretation: Performing Lab: Notes/Report: HEMOGLOBIN A1C % (HH) 5.7 HEMOGLOBIN A1C (GLYCOHEMOGLO BIN) Reviewed date:06/03/2024 07:56:17 AM Interpretation: Performing Lab: Notes/Report: HEMOGLOBIN A1C % (HH) 5.5 Reason For Referral No Information Medications Medication SIG (Take, Route, Frequency, Duration) Notes Start Date End Date Status Entresto Active Byetta 5 MCG Pen Not -Taking Jardiance Active Insulin Not-Taking Lasix 20 MG 1 tablet Orally Once a day for 30 days Active metFORMIN HCl ER 500 MG 1 tablet with ev ening meal Orally Once a day for 30 day(s) Not-Taking Emgality 120 MG/ML as directed Subcutaneous Active Chlorthalidone 25 MG 1 tablet in the mor royal Orally Once a day for 30 day(s) Not-Taking Metoprolol Succinate ER 25 MG TAKE 1 TABLET BY MOUTH AT BEDTIME Oral for 30 Active Nortripytline HCl Ac tive Extra Depth Orthopedic Shoes (1 Pair) with [...] Trulicity 3 MG/0.5ML as directed Subcutaneous Not-Taking Fluoxetine Active Fondaparinux Sodium 10 MG/0.8ML INJECT CONTENTS OF 1 SYRINGE SUBCUTANEOUSLY DAILY FOR 5 DAYS DIRECTED UNTIL INR OVER 2 Subcutaneous for 5 Not-Taking Mounjaro 7.5 MG/0.5ML as directed Subcutaneous Active Fluoxetine Not-Takin g Ferrous Gluconate Ac tive Lisinopril 30mg Not- Taking Extra Depth Orthopedic Shoes (1 Pair) with Customized Heat Molded Multidensity Innersoles (3 Pair) as directed Dx: NIDDM/Polyneuropathy (E11.42), Hammertoe Foot Deformity (M20.41,M20.42), Preulcerative Skin Lesion(s) (L85.1 09/19/2022 Active Ozempic Not-Taking Mounjaro 2.5 MG/0.5ML as directed Not-Taking Lisinopril 40 MG 1 tablet Orally Once a day Not-Taking Extra Depth Orthopedic Shoes (1 Pair) with Customized Heat Molded Multidensity Innersoles (3 Pair) as directed Dx: NIDDM/Polyneuropathy (E11.42), Hammertoe Foot Deformity (M20.41,M20.42), Preulcerative Skin Lesion(s) (L85.1 Not-Taking FLUoxetine HCl 40 MG 1 capsule in the mo rning Orally Once a day for 30 day(s) Not-Taking Triamcinolone Acetonide 0.1 % 1 application to affected area Externally Twice a day Not-Taking Simvastatin Active BD Pen Mini as directed Not-Koby mejia Levothyroxine Sodium 112mcg Active baby asprin as directed Not-Koby mejia Metformin & Diet Manage Prod 500mg Active Byetta 10 MCG Pen 10 MCG/0.04ML 0.02 ml up to 1 hour before breakfast and evening meal Subcutaneous Twice a day for 30 day(s) Not-Taking Omeprazole 20mg Acti ve Lantus 100 UNIT/ML 0.02 ml Subcutaneous Once a day for 30 day(s) Not-Kang ing Xarelto 10 MG 1 tablet with food Orally Once a day for 30 day(s) Active Warfarin Sodium 5 MG TAKE 1 TO 2 TABLETS BY MOUTH EVERY DAY DIRECTED Oral for 30 Not-Taking Immunizations Vaccine Route Administration Date Status Comme [...] Problem Acquired hammer toe of right foot ([id number] ) Other hammer toe(s) (acquired), right foot (M20.41) Active confirmed Problem Acquired hammer toe of left foot ([id number] ) Other hammer toe(s) (acquired), left foot (M20.42) Active confirmed Problem Polyneuropathy due to type 2 diabetes mellitus (582422893) Type 2 diabetes mellitus with diabetic polyneuropathy (E11.42) Active confirmed Vital Signs Blood pressure diastolic 75 mm Hg 06/03/2024 Height 5ft4in in 06/03/2024 Blood pressure systolic 120 mm Hg 06/03/2024 Weight 157 lbs 06/03/2024 BMI 26.95 kg/m2 06/03/2024 Procedures Procedure Date Ordered Date Performed Result Body Sit e 08884-Qzuv Destruction, 1-14 11/25/2023 N/A 84273-NYVW SKIN LESIONS, OVER 4 11/25/2023 N/A Q9353-KYHCNDBF DYSTROPHIC NAILS ANY # 11/25/2023 N/A 86582-Fzgr Destruction, 1-14 02/26/2024 N/A 66802-HFMC SKIN LESIONS, OVER 4 02/26/2024 N/A U5122-UUNFCIBX DYSTROPHIC NAILS ANY # 02/26/2024 N/A 19859-Ejtc Destruction, 1-14 06/03/2024 N/A 94774-LDUS SKIN LESIONS, OVER 4 06/03/2024 N/A V7050-WOQIASLV DYSTROPHIC NAILS ANY # 06/03/2024 N/A Encounters Encounter Location Date Provider Diagnosis [facility] [address] [place] [address] 11/25/2023 Sadie Black Type 2 diabetes mellitus with diabetic polyneuropathy E11.42 ; Other viral warts B07.8 and Pain in left foot M79.[address] [address] 02/26/2024 Sadie Black Type 2 diabetes mellitus with diabetic polyneuropathy E11.42 ; Other hammer toe(s) (acquired), right foot M20.41 ; Other viral warts B07.8 ; Pain in left foot M79.672 and Other hammer toe(s) (acquired), left foot M20.[address] [address] 06/03/2024 Sadie Black Type 2 diabetes mellitus with diabetic polyneuropathy E11.42 ; Other viral warts B07.8 and Pain in left foot M79.[address] [address] 09/22/2023 Sadie Black Assessments Encounter Date Diagnosis (ICD Code) Assessment Notes Treatment Notes Treatment Clinical Notes Section Notes 11/25/2023 Type 2 diabetes mellitus with diabetic polyneuropathy (ICD-10 - E11.42) 02/26/2024 Other hammer toe(s) (acquired), right foot (ICD-10 - M20.41) Patient Educated with: DIABETIC FOOT CARE INSTRUCTIONS. pdf (DIABETIC FOOT CARE INSTRUCTIONS. pdf) 02/26/2024 Type 2 diabetes mellitus with diabetic polyneuropathy (ICD-10 - E11.42) 06/03/2024 Other viral warts (ICD-10 - B07.8) 06/03/2024 Type 2 diabetes mellitus with diabetic polyneuropathy (ICD-10 - E11.42) 06/03/2024 Pain in left foot (ICD-10 - M79.672) 11/25/2023 Other viral warts (ICD-10 - B07.8) 02/26/2024 Other viral warts (ICD-10 - B07.8) 11/25/2023 Pain in left foot (ICD-10 - M79.672) 02/26/2024 Pain in left foot (ICD-10 - M79.672) 02/26/2024 Other hammer toe(s) (acquired), left foot (ICD-10 - M20.42) Plan Of Treatment Pending Test Test Name Order Date 84673-STONULJ NAIL, 6 OR MORE 02/24/2013 10202-HQLENJL NAIL, 6 OR MORE 08/16/2013 51944-ZFVKUMJ NAIL, 6 OR MORE 05/12/2013 12605-Bdbi Destruction, -14 06/03/2019 93148-Xcyr Destruction, -14 08/30/2019 93555-Jscj Destruction, -14 12/06/2019 45794-Fogc Destruction, -14 03/09/2020 22599-Xill Destruction, -14 06/08/2020 07612-Kanl Destruction, -14 09/11/2020 22635-Olwk Destruction, -14 12/21/2020 01047-Hxbw Destruction, -14 04/16/2021 42875-Zabq Destruction, -14 08/23/2021 22024-Oiqz Destruction, -14 03/04/2022 28384-Xxlw Destruction, -14 06/06/2022 82761-Hjcd Destruction, 1-14 09/19/2022 80574-Nelx Destruction, 1-14 12/23/2022 38749-Wqwl Destruction, 1-14 03/24/2023 30928-Mbzb Destruction, 1-14 06/23/2023 09287-Mbox Destruction, 1-14 11/25/2023 15971-Tpzj Destruction, 1-14 02/26/2024 23586-Tzwe Destruction, 1-14 06/03/2024 05159-Tdwbrapo Plate 06/06/2022 32242-Wiehxhzw Plate 11/26/2021 82025-Tinusauc Plate 12/21/2020 56992-Uhkvfwke Plate 06/08/2020 44505-Wxoatjso Plate 09/11/2020 05625-Ggxxcqfc Plate 03/09/2020 76752-Mplvbvil Plate 05/12/2013 75676-Vibnzjwu Plate 08/16/2013 81653-Xfuxzkuf Plate 02/24/2013 20996-Dixddupb Plate Each Additional 03/2013 76587-Gvsrlpxu Plate Each Additional 12/2020 68040-FDCJ SKIN LESIONS, OVER 4 06/04/19 25 64112-TLPW SKIN LESIONS, OVER 4 02/25/19 25 92084-PWZS SKIN LESIONS, OVER 4 05/10/19 15 40088-YNZD SKIN LESIONS, OVER 4 02/14/19 15 19207-OTDA SKIN LESIONS, OVER 4 11/25/19 24 66236-JXOO SKIN LESIONS, OVER 4 06/23/19 24 02857-NKLS SKIN LESIONS, OVER 4 03/24/19 24 71221-ZQDN SKIN LESIONS, 2 TO 4 09/20/19 23 39398-NFQM SKIN LESIONS, 2 TO 4 06/07/19 23 68164-CEHY SKIN LESIONS, 2 TO 4 03/04/19 23 70723-NLXT SKIN LESIONS, 2 TO 4 09/12/19 21 35642-CJGP SKIN LESIONS, 2 TO 4 12/22/19 99202-OWII SKIN LESIONS, 2 TO 4 11/27/19 10409-QUPT SKIN LESIONS, 2 TO 4 08/24/19 67166-UOLR SKIN LESIONS, 2 TO 4 04/17/19 22 52122-UYCU SKIN LESIONS, 2 TO 4 02/23/19 19 46588-THJB SKIN LESIONS, 2 TO 4 08/25/19 19 47421-WZWI SKIN LESIONS, 2 TO 4 06/09/19 21 77366-ECCA SKIN LESIONS, 2 TO 4 03/09/19 21 57843-WMSZ SKIN LESIONS, 2 TO 4 12/06/19 20 91530-JWZE SKIN LESIONS, 2 TO 4 08/30/19 09604-ZHHQ SKIN LESIONS, 2 TO 4 06/03/19 15799-ZOOA SKIN LESIONS, 2 TO 4 11/27/19 04045-BHBC SKIN LESIONS, 2 TO 4 03/04/19 20 97094, B1557-SUXKK/INJECT, JOINT/BURSA 1 03/16/2012 G0922-UXDHCBSC DYSTROPHIC NAILS ANY # D5307-VOLDNLMO DYSTROPHIC NAILS ANY # R1008-PSGUYSKM DYSTROPHIC NAILS ANY # R3948-FJIEMURQ DYSTROPHIC NAILS ANY # T7305-VAMVKJFN DYSTROPHIC NAILS ANY # P8899-OWWWJYCJ DYSTROPHIC NAILS ANY # E5543-AUPZPMRK DYSTROPHIC NAILS ANY # L1046-XZCNXDJF DYSTROPHIC NAILS ANY # C3531-CFJEUKCR DYSTROPHIC NAILS ANY # G2291-EWYMLXKB DYSTROPHIC NAILS ANY # V7913-XHQPDJBM DYSTROPHIC NAILS ANY # T5618-NRMEMRSI DYSTROPHIC NAILS ANY # C8646-VSOOWLZP DYSTROPHIC NAILS ANY # H8029-AKVQQOVS DYSTROPHIC NAILS ANY # F8039-LCSDWHFD DYSTROPHIC NAILS ANY # I2587-GUSLAQVJ DYSTROPHIC NAILS ANY # V2925-TVPNSKFK DYSTROPHIC NAILS ANY # G4627-AODQRJTH DYSTROPHIC NAILS ANY # G1451-VBQTDAEJ DYSTROPHIC NAILS ANY # K2233-JUMPMZRJ DYSTROPHIC NAILS ANY # R1278-JYVAWXGV DYSTROPHIC NAILS ANY # O1651-WOCFFPTX DYSTROPHIC NAILS ANY # U6102-IKFCQVQN DYSTROPHIC NAILS ANY # R5647-QNQKCDQY DYSTROPHIC NAILS ANY # F7013-BZLDXOMV DYSTROPHIC NAILS ANY # X ray : Ankle, right 3V 12/02/2012 Next Appt Details Provider Name:Sadie Jang , 09/16/2024 08:00:00 AM, [address] [place], [address], Insurance Providers Payer Name Payer Address Payer Phone Subscriber Number Group Number Insured Name Patient Relationship to Insured Coverage Start Date Coverage End Date Medicare [employer] [facility] [employer] [employer] [address] [place] [address] [id number] Elsa Rhodes Self - patient is the insured [employer] [address] [place] [address] [phone] [id number] Elsa Rhodes Self - patient is [...] History Reason Date(Month/Year) Vasil/ Blood Pressure 03/28/21 [facility] - Low blood pressure- fluids replacement 10/31 [facility]- low BP 04/06/20 [facility]- nausea,blo od pressure, vomiting, and [place] - fell- fractured ankle 09/14/2019 [facility]- Ischemic bowel-4 day stay 9 [facility] - vomiting/diarrhea/dehydration 04/12- 04/16/18 Admitted to [facility]; pulminay emb sosa x 5 days 01/12/14-01/17/14
== END 2024-07-12 09:24 | disposition home or self-care (01) ==
LOC: HO.HCS 08:55
PROVIDERS: PCP Internal Medicine; Visit Provider Internal Medicine Cardiovascular Disease
DX: I50.9 Heart failure, unspecified (principal)
CPT/HCPCS: 93010; 99213

== ENCOUNTER → 2024-07-12 08:54 | Outpatient (BNVA) | payer MEDICARE, SELFPAY | PROVIDERS: PCP Internal Medicine; Visit Provider Internal Medicine Cardiovascular Disease | DX: I50.9 Heart failure, unspecified (principal) | CPT/HCPCS: 93005; 99212 ==

== ENCOUNTER 2024-07-22 13:58 | Outpatient (REF) | payer MEDICARE, SELFPAY ==
[2024-07-22 16:46] LABS: Influenza A PCR NEGATIVE (Negative); Influenza B PCR NEGATIVE (Negative); Resp Syncy Virus RNA Qual PCR NEGATIVE (Negative); SARS COV2 PCR INHOUSE NEGATIVE (Negative)
== END 2024-07-22 13:59 | disposition home or self-care (01) ==
LOC: HO.LNP 13:58
PROVIDERS: PCP Internal Medicine; Visit Provider Physician Assistant
DX: J30.2 Other seasonal allergic rhinitis (principal); R09.89 Other specified symptoms and signs involving the circulatory and respiratory systems
CPT/HCPCS: 0241U; 87880; 99202

== ENCOUNTER 2024-07-22 13:58 | Outpatient (AMB) | payer MEDICARE, SELFPAY ==
[2024-07-22 14:00] VITALS: BP 118/72; PULSE 90; TEMP 37.1; O2SAT 98; BMI 27.5
--- NOTE | 2024-07-22 14:00 | AM.OFFWIN_ITS ---
Intake Vital Signs 07/22/24 14:00 Height 5 ft 4 in Weight 160 lb BMI 27.5 BP 118/72 Blood Pressure Location Lt brachial Position Sitting Pulse 90 Pulse Source Pulse Oximeter Temp 98.7 F Temp Source Oral Pulse Oximetry (%) 98 Oxygen Delivery Method Room Air Intake Visit Reasons: EP-sore throat Intake Note: Pt presents to the office today for c/o a sore throat x3 days. Patient Tobacco Use Status: Never used Tobacco Allergies atenolol Allergy (Intermediate, Verified 07/22/24 14:04) hives Beta-Blockers (Beta-Adrenergic Bloc [BETA-BLOCKERS (BETA-ADRENERGIC BLOC] Allergy (Intermediate, Verified 07/22/24 14:04) HIVES vancomycin [VANCOMYCIN] Allergy (Intermediate, Verified 07/22/24 14:04) NAUSEA & VOMITING Do you need a note to return to daycare/school/sports/work: No HPI HPI Comments History of Present Illness Details History - The patient is a 74-year-old female pr esenting with a sore throat. - The sore throat has persisted for a we ek without improvement. - No associated symptoms such as sneezin g, coughing, sinus pain, ear pain. - Slight head congestion reported - The patient has a history of chronic c ongestive heart failure and is vigilant about monitoring for shortness of breath. Denies sob. 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 Physical Exam General: Cooperative, healthy appearing, comfortable and no acute distress Orientation/consciousness: Patient oriented x3 Limitations: No limitations Head: Normal to inspection Ears: Hearing aid present, hearing grossly normal bilaterally, external ears normal and TM's normal bilaterally Nose: Normal external nose present, Normal nares present and No nasal discharge present Face and sinus: Normal facial exam and Yes sinuses nontender Mouth: Normal oral and palatal mucosa present and moist mucous membranes Throat: Yes tonsils normal, Yes uvula midline. Posterior oropharynx erythema, no exudates, scant cobblestoning Eyes: Appearance normal, both eyes and all related structures Neck: Normal visual inspection Respiratory: Clear to auscultation bilaterally. Normal respiratory effort, able to speak in complete sentences, no respiratory distress, not tachypneic, no tripod positioning and no use of accessory muscles Cardiovascular: Regular rate and rhythm. Normal S1 and S2 Skin: No rashes or lesions noted Neuro: Patient oriented x3 Extremities: Normal to inspection and Yes no clubbing, cyanosis or edema PFSH Medical History Cataract (lens) fragments in eye following cataract surgery Hypothyroidism HLD (hyperlipidemia) HTN (hypertension) Ischemic bowel disease Bundle branch block, left Diabetes Abdominal migraine Pulmonary embolism Surgical History Status post biventricular cardiac pacemaker insertion LAP-BAND surgery status History of partial hysterectomy Family History Father CVD (cardiovascular disease) Diabetes Mother Diabetes Mitral valve prolapse Social History Alcohol intake: never Patient Tobacco Use Status: Never used Tobacco service: No Current occupational status: retired Review of Systems Const All systems reviewed & are unremarkable except as noted in HPI and below Physical Exam Vital Signs: Last Vital Signs Temp 98.7 F 07/22/24 14:00 Pulse 90 07/22/24 14:00 BP 118/72 07/22/24 14:00 Pulse Ox 98 07/22/24 14:00 Oxygen Delivery Method Room Air 07/22/24 14:00 BMI result Body Mass Index 27.5 Results AMB Rapid Strep AMB Rapid Strep Negative Last Edit by Carrie Allen CMA on 07/22/24 14:14 Results Reviewed Results Reviewed: Laboratory Last Values Strep Scn Rapid Clinic Negative 07/22/24 14:13 Assessment & Plan Assessment & Plan (1) Seasonal allergic reaction: Code(s): J30.2 - Other seasonal allergic rhinitis Plan: VSS, pt well appearing and PE remarkable for scant cobblestoning. - Rapid strep negative. - Conducted tests for influenza, COVID-19, and RSV to rule out viral infections. - Recommended trial of Xyzal or any available allergy medication for 2-3 days to address possible allergies. - Results of the tests will be communicated via the patient portal, with a follow-up call regardless of the outcome. Patient was informed and verbally consented to the use of an ambient scribe for clinic note documentation during this visit Orders: Orders AMB Rapid Strep Screen Today Z13.9 - Encounter for screening, unspecified SARS-CoV2/FLU/RSV Today R09.89 - Other specified symptoms and signs involving the circulatory and respiratory systems Coding Level of Care Code New Pt Level 3 (91146) Diagnoses Seasonal allergic reaction J30.2
--- OUTSIDE RECORDS SUMMARY | 2024-07-22 16:27 | XMS_ITS | Patient Health Record ---
Author Organization [facility] Address [address] [place] [address] Care Team Providers Care Optical Dispenser Name Role Phone Shawn Omer MD Primary Care Provider Unavaila ble Black, Sadie Unavailable [phone] Allergies Allergen (clinical drug ingredient) Drug/Non Drug Allergy documented on EMR Reaction Allergy Type Onset Date Status propranolol Inderal LA hives Drug Allergy Acti ve Substance with beta adrenergic receptor antagonist mechanism of action (substance) Beta Adrenergic Blockers hives Drug Allergy Active Results Component Value Reference Range Notes HEMOGLOBIN A1C (GLYCOHEMOGLO BIN) Reviewed date:02/26/2024 09:03:15 [...] Simvastatin Active BD Pen Mini as directed Not-Ta roberto Levothyroxine Sodium 112mcg Active baby asprin as directed Not-Ta roberto Metformin & Diet Manage Prod 500mg Active [...] Problem Acquired hammer toe of right foot ([id number] ) Other hammer toe(s) (acquired), right foot (M20.41) Active confirmed Problem Acquired hammer toe of left foot ([id number] ) Other hammer toe(s) (acquired), left foot (M20.42) Active confirmed Problem Polyneuropathy due to type 2 diabetes mellitus (712491270) Type 2 diabetes mellitus with diabetic polyneuropathy (E11.42) Active confirmed Vital Signs Blood pressure diastolic 75 mm Hg 06/03/2024 Height 5ft4in in 06/03/2024 Blood pressure systolic 120 mm Hg 06/03/2024 Weight 157 lbs 06/03/2024 BMI 26.95 kg/m2 06/03/2024 Procedures Procedure Date Ordered Date Performed Result Body Sit e 04952-Vtxj Destruction, 1-14 11/25/2023 N/A 61814-XBIS SKIN LESIONS, OVER 4 11/25/2023 N/A G5270-EZSGXTVC DYSTROPHIC NAILS ANY # 11/25/2023 N/A 68184-Ykof Destruction, 1-14 02/26/2024 N/A 53342-CXNC SKIN LESIONS, OVER 4 02/26/2024 N/A C6501-SIDTONLN DYSTROPHIC NAILS ANY # 02/26/2024 N/A 85582-Rack Destruction, 1-14 06/03/2024 N/A 31689-RDBM SKIN LESIONS, OVER 4 06/03/2024 N/A X8861-HXLBWNJC DYSTROPHIC NAILS ANY # 06/03/2024 N/A Encounters Encounter Location Date Provider Diagnosis [address] [address] 11/25/2023 Sadie Jang Type 2 diabetes mellitus with diabetic polyneuropathy E11.42 ; Other viral warts B07.8 and [facility].[address] [facility] [address] 02/26/2024 Sadie Jang Type 2 diabetes mellitus with diabetic polyneuropathy E11.42 ; Other hammer toe(s) (acquired), right foot M20.41 ; Other viral warts B07.8 ; Pain in left foot M79.672 and Other hammer toe(s) (acquired), left foot M20.[address] [address] 06/03/2024 Sadie Jang Type 2 diabetes mellitus with diabetic polyneuropathy E11.42 ; Other viral warts B07.8 and Pain in left foot M79.[address] [address] 09/22/2023 Sadie Black Assessments Encounter Date Diagnosis [...] Treatment Pending Test Test Name Order Date 63141-JQLCVXL NAIL, 6 OR MORE 02/24/2013 00711-GOOSTQV NAIL, 6 OR MORE 08/16/2013 79254-OQCLSGV NAIL, 6 OR MORE 05/12/2013 49078-Wdua Destruction, 1-14 06/03/2019 22298-Qjjz Destruction, -14 08/30/2019 84724-Dqlh Destruction, -14 12/06/2019 66235-Rcfj Destruction, -14 03/09/2020 86224-Thog Destruction, -06/08/2020 08410-Wwwa Destruction, -09/11/2020 17580-Lyfl Destruction, -14 12/21/2020 44188-Dawr Destruction, -14 04/16/2021 57992-Yaps Destruction, -08/23/2021 60914-Mlrm Destruction, -14 03/04/2022 02615-Oykc Destruction, -06/06/2022 41265-Vhdq Destruction, -09/19/2022 41763-Dwlr Destruction, -12/23/2022 26359-Akro Destruction, 1-14 03/24/2023 55585-Ehva Destruction, 1-14 06/23/2023 48981-Swwy Destruction, 1-14 11/25/2023 92169-Jjvb Destruction, 1-14 02/26/2024 78330-Rokz Destruction, 1-14 06/03/2024 33014-Vylkjmla Plate 06/06/2022 99219-Crapntwu Plate 11/26/2021 97366-Xegivccs Plate 12/21/2020 80109-Dmuvsxxz Plate 06/08/2020 49716-Qoezczai Plate 09/11/2020 51146-Wykkbfgh Plate 03/09/2020 20639-Myzgfzfy Plate 05/12/2013 93131-Khrvicbs Plate 08/16/2013 69532-Cyvtxgxv Plate 02/24/2013 15318-Mehzchfl Plate Each Additional 03/2013 97134-Lcdzwaix Plate Each Additional 12/2020 24586-ZIHI SKIN LESIONS, OVER 4 06/04/19 25 22555-BLFY SKIN LESIONS, OVER 4 02/25/19 25 96910-OMPB SKIN LESIONS, OVER 4 05/10/19 15 26143-JKZZ SKIN LESIONS, OVER 4 02/14/19 15 85774-TMQG SKIN LESIONS, OVER 4 11/25/19 24 81804-ERTS SKIN LESIONS, OVER 4 06/23/19 24 30467-RQXU SKIN LESIONS, OVER 4 03/24/19 24 85097-CCRQ SKIN LESIONS, 2 TO 4 09/20/19 23 46160-QFFA SKIN LESIONS, 2 TO 4 06/07/19 23 77820-JCBO SKIN LESIONS, 2 TO 4 03/04/19 72557-TSMJ SKIN LESIONS, 2 TO 4 09/12/19 58596-VLTD SKIN LESIONS, 2 TO 4 12/22/19 13048-SAFE SKIN LESIONS, 2 TO 4 11/27/19 34125-VZGF SKIN LESIONS, 2 TO 4 08/24/19 96341-JXGZ SKIN LESIONS, 2 TO 4 04/17/19 22 80067-XTCB SKIN LESIONS, 2 TO 4 02/23/19 88541-FWIN SKIN LESIONS, 2 TO 4 08/25/19 69508-BYVD SKIN LESIONS, 2 TO 4 06/09/19 06411-AXBM SKIN LESIONS, 2 TO 4 01/28/20 21 28554-MLYL SKIN LESIONS, 2 TO 4 12/06/19 35694-VWTC SKIN LESIONS, 2 TO 4 08/30/19 61979-QGXU SKIN LESIONS, 2 TO 4 06/03/19 58573-IZWB SKIN LESIONS, 2 TO 4 11/27/19 15004-YPSQ SKIN LESIONS, 2 TO 4 03/04/19 20 50172, U7995-SDNZH/INJECT, JOINT/BURSA 1 03/16/2012 Y1413-QMSGOPAW DYSTROPHIC NAILS ANY # S0983-LVFWMMWK DYSTROPHIC NAILS ANY # A6633-WYAIKMGS DYSTROPHIC NAILS ANY # B5024-ZOYBJOVE DYSTROPHIC NAILS ANY # D9171-CLTQPRCY DYSTROPHIC NAILS ANY # U2806-RDWHDPIU DYSTROPHIC NAILS ANY # E9456-AQAHPHWW DYSTROPHIC NAILS ANY # Y3942-XODMTLRH DYSTROPHIC NAILS ANY # F9285-UOWYBLBM DYSTROPHIC NAILS ANY # F9670-APOSNTZY DYSTROPHIC NAILS ANY # Y9605-EXCEMGUV DYSTROPHIC NAILS ANY # T1926-GWPZPGFX DYSTROPHIC NAILS ANY # B0346-RQEDISVS DYSTROPHIC NAILS ANY # X1155-KOSWCJVP DYSTROPHIC NAILS ANY # N1089-ANHMVFEU DYSTROPHIC NAILS ANY # L1335-FNBYRCMP DYSTROPHIC NAILS ANY # F6426-ECJVDFQD DYSTROPHIC NAILS ANY # C3302-IJQUBVZQ DYSTROPHIC NAILS ANY # G1341-CFPDHJMM DYSTROPHIC NAILS ANY # U5620-RGAJIJVN DYSTROPHIC NAILS ANY # Y6652-VDQDAMUC DYSTROPHIC NAILS ANY # E6307-VAVBDWQZ DYSTROPHIC NAILS ANY # K7911-DGWEMJNA DYSTROPHIC NAILS ANY # H5399-DPIOXULZ DYSTROPHIC NAILS ANY # G5941-HQLPQLLI DYSTROPHIC NAILS ANY # X ray : Ankle, right 3V 12/02/2012 Next Appt Details Provider Name:Sadie Jang , 09/16/2024 08:00:00 AM, [address] [facility], [place], [address], Insurance Providers Payer Name Payer Address Payer Phone Subscriber Number Group Number Insured Name Patient Relationship to Insured Coverage Start Date Coverage End Date Medicare [employer] [facility] [address] [place] [address] [id number] Carmelo Elsa Self - patient is the insured [employer] [address] [place] [address] [phone] [id number] SalmaAlicia floodElsa Self - patient is the insured Medical (General) History Medical History History ICD Code hypertension type II diabetes hyperlipidemia gallstones gastroesophageal reflux disease (GERD) sleep apnea kidney stones bronchospasms thyroid Pulmonary embolism left ankle Fx Cataracts Surgical History Surgery Date(Month/Year) lap band hysterectomy right carpal tunnel 11/2017 Tooth extraction 03/2023 cataract surgery 06/18/23 Colonoscopy 10/20/23 Hospitalization History Reason Date(Month/Year) Vasil/ Blood Pressure 03/28/21 [facility] - Low blood pressure- fluids replacement [place] [facility] 04/06/20 [facility]- nausea,blo od pressure, vomiting, and [place] - fell- fractured ankle 09/14/[place] [facility] [place] Ischem[place] bowel-4 day stay 9 [facility] [place] vomiting/diarrhea/dehydration 04/12- 04/16/18 Admitted to [facility]; pulminay emb sosa x 5 days 01/12/14-01/17/14
== END 2024-07-22 14:39 | disposition home or self-care (01) ==
PROVIDERS: PCP Internal Medicine; Visit Provider Physician Assistant
DX: Z13.9 Encounter for screening, unspecified (principal); J30.2 Other seasonal allergic rhinitis

== ENCOUNTER → 2024-07-22 23:59 | Outpatient (BNV) | payer MEDICARE, SELFPAY ==
--- NOTE | 2024-08-05 21:55 | MHC.OFFVIS ---
Intake Visit Reasons: REmote HF monitoring- [employer] Allergies atenolol Allergy (Intermediate, Verified 07/22/24 14:04) hives Beta-Blockers (Beta-Adrenergic Bloc (BETA-BLOCKERS (BETA-ADRENERGIC BLOC) Allergy (Intermediate, Verified 07/22/24 14:04) HIVES vancomycin (VANCOMYCIN) Allergy (Intermediate, Verified 07/22/24 14:04) NAUSEA & VOMITING PFSH Medical History Cataract (lens) fragments in eye following cataract surgery Hypothyroidism HLD (hyperlipidemia) HTN (hypertension) Ischemic bowel disease Bundle branch block, left Diabetes Abdominal migraine Pulmonary embolism Surgical History Status post biventricular cardiac pacemaker insertion LAP-BAND surgery status History of partial hysterectomy Family History Father CVD (cardiovascular disease) Diabetes Mother Diabetes Mitral valve prolapse Social History Alcohol intake: never Patient Tobacco Use Status: Never used Tobacco service: No Current occupational status: retired Office Procedures Cardiac Device Check Cardiac Device Check Details: HF monitoring Stable thoracic impedance. 10769-Oxzbal Cardiac Device Interrogation, cardio physiologic monitor Procedure code (CPT) selection complete Results AMB Rapid Strep AMB Rapid Strep Negative Last Edit by Carrie Allen CMA on 07/22/24 14:14 Assessment & Plan Assessment & Plan (1) Cardiomyopathy: Code(s): I42.9 - Cardiomyopathy, unspecified Category: Medical Plan Coding Level of Care Code Procedure Only Diagnoses Cardiomyopathy I42.9 CPT Codes Cardiac Device Check - Cardiac Device 15: 52056-Zeqmfq Cardiac Device Interrogation, cardio physiologic monitor ([id number])
== END ==
PROVIDERS: PCP Internal Medicine; Visit Provider Internal Medicine Cardiovascular Disease
DX: I42.9 Cardiomyopathy, unspecified (principal); Z95.810 Presence of automatic (implantable) cardiac defibrillator
CPT/HCPCS: 93297

== ENCOUNTER 2024-09-30 08:57 | Outpatient (AMB) | payer MEDICARE, SELFPAY ==
[2024-09-30 09:19] VITALS: BP 110/62; PULSE 94; BMI 28.5
--- NOTE | 2024-09-30 09:19 | MHC.OFFVIS ---
Vital Signs 09/30/24 09:19 Height 5 ft 4 in Weight 166 lb 3.657 oz BMI 28.5 BP 110/62 Blood Pressure Location Lt brachial Position Sitting Pulse 94 Pulse Source Monitor Intake Visit Reasons: Pt d/c from [place] [facility] after colon removal, 16 lb gai Instructor Warper Required: No Publishing Editor: Publishing Editor Present Allergies atenolol Allergy (Intermediate, Verified 09/30/24 09:23) hives Beta-Blockers (Beta-Adrenergic Bloc (BETA-BLOCKERS (BETA-ADRENERGIC BLOC) Allergy (Intermediate, Verified 09/30/24 09:23) HIVES vancomycin (VANCOMYCIN) Allergy (Intermediate, Verified 09/30/24 09:23) NAUSEA & VOMITING Medication List - Last Reconciled 09/30/24 by DAYSI GarzonC blood sugar diagnostic ([email or web address] Verio test strips) use as directed to test once daily cholecalciferol (vitamin D3) 25 mcg PO DAILY cholestyramine (with sugar) 4 gram 4 grams PO SUTUTHSA@0900 ciprofloxacin HCl 500 mg PO Q12H empagliflozin (Jardiance) 10 mg PO DAILY 90 days ferrous sulfate 325 mg PO DAILY fluoxetine 10 mg PO BEDTIME furosemide 20 mg PO DAILY galcanezumab-gnlm (Emgality) 120 mg subcut Q30D hyoscyamine sulfate 0.125 mg sublingual DAILY PRN levothyroxine 112 mcg PO MOTUWETHFRSA@0630 metformin ER 1,000 mg PO BID metoprolol succinate ER 25 mg PO DAILY metronidazole 500 mg PO TID nortriptyline 50 mg PO BEDTIME omeprazole 20 mg PO DAILY ondansetron 8 mg PO Q8H PRN rimegepant (Nurtec ODT) 75 mg PO Q OTHER DAY PRN rivaroxaban (Xarelto) 20 mg PO DAILY@1700 sacubitril-valsartan 49-51 mg (Entresto) 1 tab PO BID simvastatin 20 mg PO BEDTIME tirzepatide (Mounjaro) mg subcut HPI HPI Pt d/c from [place] [facility] after colon removal, 16 lb gai: Details: Eloina is a 74-year-old female past medical history of hyperlipidemia, diabetes, pulmonary embolism, now on Xarelto, left bundle branch block, nonischemic cardiomyopathy with last known EF 55-60%, [employer] INST[employer]ER who was recently admitted to [facility] in [place] with abdominal discomfort and found to have C diff, colitis, septic shock. She did undergo a colectomy and now has a temporary ostomy. She did have electrolyte derangements including hypophosphatemia, hypokalemia, hypomagnesemia. She was discharged yesterday and call this office with concern for weight gain and she now presents for follow-up. Today she reports that during her hospital admission she gained 16 lb. She is noticing swelling in her arms and her legs. She does state it is looking better today than it did yesterday. She denies any shortness of breath, PND, orthopnea, cough, fever. She does have generalized fatigue from her recent hospital stay. She has no chest discomfort at rest or with walking. She is ambulating slowly with a walker. Minor abdominal discomfort. Taking all meds as directed. is present. Tells me she has a PCP visit today as well. [facility] Medical History Cataract (lens) fragments in eye following cataract surgery Hypothyroidism HLD (hyperlipidemia) HTN (hypertension) Ischemic bowel disease Bundle branch block, left Diabetes Abdominal migraine Pulmonary embolism Surgical History History of colectomy Status post biventricular cardiac pacemaker insertion LAP-BAND surgery status History of partial hysterectomy Family History Father CVD (cardiovascular disease) Diabetes Mother Diabetes Mitral valve prolapse Social History Alcohol intake: never Patient Tobacco Use Status: Never used Tobacco service: No Current occupational status: retired Review of Systems Const Details: Body swelling and weight gain All systems reviewed & are unremarkable except as noted in HPI and below Reports fatigue ENT Denies dizziness Card Denies chest pain, Denies chest pain at rest, Denies chest pain with activity, Denies rapid heart rate, Denies pedal edema, Denies edema, Denies leg edema, Denies lightheadedness, Denies palpitations, Denies dyspnea, Denies dyspnea on exertion and Denies orthopnea Resp Denies cough, Denies dyspnea and Denies dyspnea on exertion GI Details: New ostomy - abdominal surgery last week Denies hematochezia and Denies change in stool character Musc Details: ambulates slowly with walker Reports abnormal gait, Denies limited range of motion, Denies muscle cramps, Denies muscle weakness, Denies numbness, Denies radiating pain into limb, Denies stiffness and Denies tingling Neuro Reports abnormal gait, Denies dizziness, Denies numbness and Denies tingling Endo Reports fatigue and Denies palpitations Physical Exam Vital Signs: Last Vital Signs Pulse 94 09/30/24 09:19 BP 110/62 09/30/24 09:19 BMI result Body Mass Index 28.5 Const General: cooperative, healthy appearing, comfortable and no acute distress Orientation/consciousness: patient oriented x3 Neck Neck: Yes normal visual inspection Resp Effort & Inspection: normal respiratory effort Auscultation: clear to auscultation bilaterally, no crackles, no rales, no rhonchi and no wheezes Cardio Jugular venous distension: no JVD Rate: regular rate Rhythm: regular rhythm Heart sounds: S1 normal heart sound present, S2 normal heart sound present, no gallops, no murmurs and no rubs Neuro General: patient oriented x3 Extrem Other: mild swelling in hands and pillow top feet - nonpitting edema Psych Appearance: grossly normal Mental Status: mental status grossly normal Speech and movement: Normal speech and movement present Office Procedures EKG Details: Today, read by me, atrial sensed, ventricular paced, rate 94, Qtc 427ms 90755-Yrcjxzlddoemaiewc, Complete Assessment & Plan Assessment & Plan (1) Hospital discharge follow-up: Code(s): Z09 - Encounter for follow-up examination after completed treatment for conditions other than malignant neoplasm Category: Medical Plan: Discharged from [facility] in [facility] yesterday following treatment for C diff, sepsis, colitis and colectomy. Hospital discharge summary reviewed. She was likely given large amounts of IV fluids for treatment of sepsis with hypotension. She is concerned today over a 16 lb weight gain. In our system her weight from last visit in July to today is only 6 lb more. She does have some mild puffiness in her hands and feet. She does not appear to have decompensated congestive heart failure. She was discharged on Lasix 20 mg daily. Notes indicate that she did have acute renal failure however last creatinine at discharge was normal at 0.67. Notes indicate she had issues with electrolyte derangements including hypokalemia and hypomagnesemia. Labs yesterday showed potassium 3.9, magnesium 1.2. She is on magnesium supplement. At this time with normal kidney function will continue Lasix at current dose. Informed her that fluid overload will likely resolve over the next several days. I do not want to increase her diuretic as it may further strain kidneys or worsen electrolyte issues. Signs and symptoms of heart failure reviewed with her in detail. She will call back if having any concerning symptoms, emergency care if needed. (2) Cardiomyopathy: Code(s): I42.9 - Cardiomyopathy, unspecified Category: Medical Plan: History of nonischemic cardiomyopathy with prior cardiac catheterization showing no coronary artery disease. Cardiomyopathy thought to be related to left bundle branch block. She had SIMPLEX PRINTER INSTALLER placed 04/2021. EF was normal on last echocardiogram 05/02/2022. Will update echo in 1-2 months. Plan to call her with results. Continue metoprolol XL and Entresto for neurohormonal modulation. She is scheduled for cardiology follow-up in January, will keep that appointment. (3) Hypertension: Comment: Stable Code(s): I10 - Essential (primary) hypertension Category: Medical Qualifiers: Hypertension type: essential hypertension Qualified Code(s): I10 - Essential (primary) hypertension Plan: Blood pressure goal less than 130/80. Blood pressure good at this time, 110/62. No med changes made. Reviewed need for good hydration and activity as tolerated. (4) Weight gain: Code(s): R63.5 - Abnormal weight gain Plan: Post surgical, likely related to fluid retention. Offered reassurance. Plan Time spent on chart review, documentation, interview and assessment Orders: Orders CA echo transthoracic complete 6 Weeks I42.9 - Cardiomyopathy, unspecified Coding Level of Care Code Est Pt Level 4 (95825) Complex EM visit Add On G2211 Diagnoses Hospital discharge follow-up Z09 Cardiomyopathy I42.9 Essential hypertension I10 Hypertension type: essential hypertension Weight gain R63.5 CPT Codes EKG - CPT: 14661-Lzvbcmxjqtjqprhrg, Complete ([id number]) Time Spent (min) 32
--- OUTSIDE RECORDS SUMMARY | 2024-09-30 09:58 | XMS_ITS | Encounter Summary ---
Author Organization [facility] Address [address] [place] [address] Care Team Providers Care Friction Welding Machine Operator Name Role Phone Unavailable Primary Care Provider Unavailabl e Encounter Details Date Type Department Care Team (Late st Contact Info) Description 08/23/2024 Lab Requisition [facility] Pathology & Laboratory Medicine - [facility] [address] [place] [address] Outr Resulting Lab, Provider Social History Tobacco Use Types Packs/Day Years Used Date Smoking Tobacco: Never Assessed Comments Unknown Sex and Gender Information Value Date Recorded Sex Assigned at Not on file Legal Sex Female 11:26 EDT Gender Identity Not on file Sexual Orientation Not on file documented as of this encounter Plan of Treatment Not on file documented as of this encounter Procedures Procedure Name Priority Date/Time Associated Diagnosis Comments PARASITE SCREEN, STOOL Routine 08/23/2024 8:00 EDT FECAL BACTERIAL PATHOGENS BY PCR Routine 08/23/2024 8:00 EDT documented in this encounter Results * FECAL BACTERIAL PATHOGENS BY PCR (08/23/2024 8:00 EDT) Salmonella PCR Negative Negative 08/24/2024 14:47 EDT [facility] Shigella/Enteroin vasive E. coli Negative Negative 08/24/2024 14:47 EDT [facility] HN LAB CAMPYLOBACTER PCR Negative Negative 08/24/2024 14:47 EDT [facility] Shiga Toxin PCR Negative Negative 14:47 EDT [facility] Feces SPECIMEN FROM RECTUM / Unknown 08/23/2024 8:00 EDT 08/23/2024 22:21 EDT us Provider Outr Resulting Lab MICROBIOLOGY - GENER AL ORDERABLES Final Result Performing Organization Address [facility]/ZIP Co de Phone Number [facility] [address] [place] [address] * PARASITE SCREEN, STOOL (08/23/2024 8:00 EDT) Giardia and Cryptosporidium Cryptosporidium Antigen Neg and Giardia Antigen Neg Cryptosporidium Antigen Neg and Giardia Antigen Neg 12:09 EDT [facility] Feces SPECIMEN FROM RECTUM / Unknown 08/23/2024 8:00 EDT 08/23/2024 22:21 EDT us Provider Outr Resulting Lab MICROBIOLOGY - GENER AL ORDERABLES Final Result Performing Organization Address [facility] Co de Phone Number [facility] [address] [place] [address] documented in this encounter Visit Diagnoses Not on filedocumented in this encounter
--- OUTSIDE RECORDS SUMMARY | 2024-09-30 09:58 | XMS_ITS | Patient Health Record ---
Author Organization [facility] Address [address] [place] [address] Care Team Providers [employer] Development Analyst Name Role Phone Shawn Omer MD Primary Care Provider Unavaila ble Black, Sadie Unavailable [phone] Allergies Allergen (clinical drug ingredient) Drug/Non Drug [...] Lab: Notes/Report: HEMOGLOBIN A1C % (HH) 5.5 HEMOGLOBIN A1C (GLYCOHEMOGLO BIN) Reviewed date:09/16/2024 08:02:45 AM Interpretation: Performing Lab: Notes/Report: HEMOGLOBIN A1C % (HH) 5.6 Reason For Referral No Information Medications Medication SIG (Take, Route, Frequency, Duration) Notes Start Date End Date Status Xarelto 10 MG 1 tablet with food Orally Once a day; Duration: 30 day(s) Active Omeprazole 20mg Acti ve Mounjaro 2.5 MG/0.5ML as directed Not-Taking Ozempic Not-Taking Extra Depth Orthopedic Shoes (1 Pair) [...] (M20.41,M20.42), Preulcerative Skin Lesion(s) (L85.1 08/23/2021 Not-Taking Extra Depth Orthopedic Shoes (1 Pair) with Customized Heat Molded Multidensity Innersoles (3 Pair) as directed Dx: NIDDM/Polyneuropathy (E11.42), Hammertoe Foot Deformity (M20.41,M20.42), Preulcerative Skin Lesion(s) (L85.1 Not-Taking Fluoxetine Active Fondaparinux Sodium 10 MG/0.8ML INJECT CONTENTS OF 1 SYRINGE SUBCUTANEOUSLY DAILY FOR 5 DAYS DIRECTED UNTIL INR OVER 2 Subcutaneous; Duration: 5 Not-Taking Trulicity 3 MG/0.5ML as directed Subcutaneous Not-Taking Lantus 100 UNIT/ML 0.02 ml Subcutaneous Once a day; Duration: 30 day(s) Not-Taking Extra Depth Orthopedic Shoes (1 Pair) with Customized Heat Molded Multidensity Innersoles (3 Pair) as directed Dx: NIDDM/Polyneuropathy (E11.42), Hammertoe Foot Deformity (M20.41,M20.42), Preulcerative Skin Lesion(s) (L85.1 09/19/2022 Active Warfarin Sodium 5 MG TAKE 1 TO 2 TABLETS BY MOUTH EVERY DAY DIRECTED Oral; Duration: 30 Not-Taking Ferrous Gluconate Ac tive Mounjaro 7.5 MG/0.5ML as directed Subcutaneous Active Fluoxetine Not-Takin g Entresto Active Lasix 20 MG 1 tablet Orally Once a day; Duration: 30 days Active metFORMIN HCl ER 500 MG 1 tablet with ev ening meal Orally Once a day; Duration: 30 day(s) Not-Taking Jardiance Active Insulin Not-Taking Metoprolol Succinate ER 25 MG TAKE 1 TABLET BY MOUTH AT BEDTIME Oral; Duration: 30 Active FLUoxetine HCl 40 MG 1 capsule in the mo rning Orally Once a day; Duration: 30 day(s) Not-Taking Emgality 120 MG/ML as directed Subcutaneous Active Chlorthalidone 25 MG 1 tablet in the mor royal Orally Once a day; Duration: 30 day(s) Not-Taking Simvastatin Active BD Pen Mini as directed Not-Koby mejia Nortripytline HCl Ac tive Triamcinolone Acetonide 0.1 % 1 application to affected area Externally Twice a day Not-Taking Metformin & Diet Manage Prod 500mg Active Byetta 10 MCG Pen 10 MCG/0.04ML 0.02 ml up to 1 hour before breakfast and evening meal Subcutaneous Twice a day; Duration: 30 day(s) Not-Kang ing Levothyroxine Sodium 112mcg Active baby asprin as directed Not-Koby mejia Byetta 5 MCG Pen Not -Taking Lisinopril 30mg Not- Taking Immunizations Vaccine Route Administration Date Status Comme nts COVID-19 Moderna Vaccine Unknown 04/11/2020 Administered COVID-19 Moderna Vaccine Unknown 11/27/2020 Administered First Dose: 04/18/20 Second Dose: 05/09/20 Influenza Unknown 11/10/2017 Administered Influenza Unknown 12/04/2018 Administered Influenza Unknown 11/08/2019 Administered Influenza Unknown 10/25/2020 Administered Influenza Unknown 10/10/2021 Administered Influenza Unknown 10/11/2022 Administered Influenza Unknown 11/11/2023 Administered Social History Tobacco Use: Social History Observation Description Date Details (start date - stop date) Never Smoker NA - NA Tobacco use other than smoking: Question Answer Notes Are you an other tobacco user? No Tobacco Control (Standard) Question Answer Notes Tobacco use: Nonsmoker Additional Findings: Tobacco non-user Current no nsmoker AUDIT-C (Standard) Question Answer Notes Did you have a drink containing alcohol in the p ast year? No Points 0 Interpretation Negative Problems Problem Type SNOMED Code ICD Code Onset Dates Problem Status W/U Status Risk Notes Problem Type 2 diabetes mellitus with diabetic polyneuropathy (E11.42) Active confirmed Vital Signs Blood pressure diastolic 84 mm Hg 09/16/2024 Height 5ft 3in in 09/16/2024 Blood pressure systolic 124 mm Hg 09/16/2024 Weight 151 lbs 09/16/2024 BMI 26.75 kg/m2 09/16/2024 Procedures Procedure Date Ordered Date Performed Result Body Sit e 95752-Czwu Destruction, 1-14 11/25/2023 N/A 40122-ZWYY SKIN LESIONS, OVER 4 11/25/2023 N/A C6174-TFIYHZSB DYSTROPHIC NAILS ANY # 11/25/2023 N/A 16263-Cgwx Destruction, 1-14 02/26/2024 N/A 17447-CSHJ SKIN LESIONS, OVER 4 02/26/2024 N/A V2389-MRTPPZVE DYSTROPHIC NAILS ANY # 02/26/2024 N/A 84392-Quia Destruction, 1-14 06/03/2024 N/A 10451-CMTA SKIN LESIONS, OVER 4 06/03/2024 N/A H8552-WESIUZBK DYSTROPHIC NAILS ANY # 06/03/2024 N/A 04942-Jnar Destruction, 1-09/16/2024 N/A 75849-AFJO SKIN LESIONS, OVER 4 09/16/2024 N/A P6339-DBTYNVZJ DYSTROPHIC NAILS ANY # 09/16/2024 N/A Encounters Encounter Location Date Provider Diagnosis [facility] [address] [place] [address] 11/25/2023 Sadie Black Type 2 diabetes mellitus with diabetic polyneuropathy E11.42 ; Other viral warts B07.8 and Pain in left foot M79.[address] [address] 02/26/2024 Sadie Black Type 2 diabetes mellitus with diabetic polyneuropathy E11.42 ; Other hammer toe(s) (acquired), right foot M20.41 ; Other viral warts B07.8 ; Pain in left foot M79.672 and Other hammer toe(s) (acquired), left foot M20.[address] [address] 06/03/2024 Sadie Black Type 2 diabetes mellitus with diabetic polyneuropathy E11.42 ; Other viral warts B07.8 and Pain in left foot M79.[address] [address] 09/16/2024 Sadie Black Type 2 diabetes mellitus with [...] mellitus with diabetic polyneuropathy (ICD-10 - E11.42) 09/16/2024 Type 2 diabetes mellitus with diabetic polyneuropathy (ICD-10 - E11.42) 09/16/2024 Other viral warts (ICD-10 - B07.8) 06/03/2024 Pain in left foot (ICD-10 - M79.672) 11/25/2023 Other viral warts (ICD-10 - B07.8) 02/26/2024 Other viral warts (ICD-10 - B07.8) 11/25/2023 Pain in left foot (ICD-10 - M79.672) 09/16/2024 Pain in left foot (ICD-10 - M79.672) 02/26/2024 Pain in left foot (ICD-10 - M79.672) 02/26/2024 Other hammer toe(s) (acquired), left foot (ICD-10 - M20.42) Plan Of Treatment Pending Test Test Name Order Date 03071-JTQARTA NAIL, 6 OR MORE 02/24/2013 15235-FOVGFZQ NAIL, 6 OR MORE 08/16/2013 83642-BAZEJZU NAIL, 6 OR MORE 05/12/2013 61422-Ihsv Destruction, 1-14 06/03/2019 32737-Pfga Destruction, 1-14 08/30/2019 09270-Uxql Destruction, 1-14 12/06/2019 72237-Ysok Destruction, 1-14 03/09/2020 88172-Kfoj Destruction, 1-14 06/08/2020 10632-Mqfk Destruction, -14 09/11/2020 29625-Kpmx Destruction, -14 12/21/2020 47830-Pkxj Destruction, -14 04/16/2021 12833-Oaaj Destruction, -14 08/23/2021 59619-Vzxl Destruction, -14 03/04/2022 75602-Vqkz Destruction, -14 06/06/2022 94822-Grtz Destruction, -09/19/2022 62271-Wyap Destruction, -14 12/23/2022 81948-Jbnj Destruction, -14 03/24/2023 43355-Njxn Destruction, -06/23/2023 24922-Orwf Destruction, -11/25/2023 60630-Vosn Destruction, -02/26/2024 32387-Appj Destruction, -14 06/03/2024 78722-Zkqn Destruction, -09/16/2024 16738-Auuxrayu Plate 06/06/2022 33493-Ptmaemex Plate 11/26/2021 98281-Xkupezbn Plate 12/21/2020 15624-Cfpybmhv Plate 06/08/2020 76393-Llnjzzjg Plate 09/11/2020 68256-Lsfpnkcu Plate 03/09/2020 03825-Ysdjdeuz Plate 05/12/2013 20546-Pmnonmfn Plate 08/16/2013 57397-Xsbklgoo Plate 02/24/2013 45323-Voytotht Plate Each Additional 03/2013 03470-Hnhomjwx Plate Each Additional 12/2020 12580-WSXP SKIN LESIONS, OVER 4 09/17/19 90549-ZZUE SKIN LESIONS, OVER 4 06/04/19 39549-KWIY SKIN LESIONS, OVER 4 02/25/19 11517-OELC SKIN LESIONS, OVER 4 05/10/19 36411-JUXT SKIN LESIONS, OVER 4 02/14/19 15 05514-FKBI SKIN LESIONS, OVER 4 11/25/19 40372-YXYN SKIN LESIONS, OVER 4 06/23/19 24 61297-MITK SKIN LESIONS, OVER 4 03/24/19 14222-XVVJ SKIN LESIONS, 2 TO 4 09/20/19 83944-SUVZ SKIN LESIONS, 2 TO 4 06/07/19 80704-VPEC SKIN LESIONS, 2 TO 4 03/04/19 24004-QCFM SKIN LESIONS, 2 TO 4 09/12/19 14537-FIVU SKIN LESIONS, 2 TO 4 12/22/19 01933-ZTEN SKIN LESIONS, 2 TO 4 11/27/19 11534-HTMR SKIN LESIONS, 2 TO 4 08/24/19 49329-BZQS SKIN LESIONS, 2 TO 4 04/17/19 92094-EAUI SKIN LESIONS, 2 TO 4 02/23/19 49258-DLOP SKIN LESIONS, 2 TO 4 08/25/19 64095-DNXB SKIN LESIONS, 2 TO 4 06/09/19 02209-GNMV SKIN LESIONS, 2 TO 4 03/09/19 39682-AZCK SKIN LESIONS, 2 TO 4 12/06/19 66762-JNSA SKIN LESIONS, 2 TO 4 08/30/19 63363-QSDI SKIN LESIONS, 2 TO 4 06/03/19 49046-ICXB SKIN LESIONS, 2 TO 4 11/27/19 21633-DQOU SKIN LESIONS, 2 TO 4 03/04/19 20 75741, T4102-SNJRB/INJECT, JOINT/BURSA 1 03/16/2012 R8940-EJFSDHOH DYSTROPHIC NAILS ANY # D6754-SXYHLLMF DYSTROPHIC NAILS ANY # C4148-QAXJUJYH DYSTROPHIC NAILS ANY # S2146-LPCJANMQ DYSTROPHIC NAILS ANY # C0719-GQQXBGDL DYSTROPHIC NAILS ANY # A1650-GTTHPNQB DYSTROPHIC NAILS ANY # C2144-LWZLRGZQ DYSTROPHIC NAILS ANY # C1839-KLYNWDIZ DYSTROPHIC NAILS ANY # G8931-DAOMDLFA DYSTROPHIC NAILS ANY # W0904-IKYVIGSK DYSTROPHIC NAILS ANY # D4000-SJGQRZNF DYSTROPHIC NAILS ANY # N5173-INOUALHJ DYSTROPHIC NAILS ANY # F8091-OALUWGTJ DYSTROPHIC NAILS ANY # O2984-WGAIFSAP DYSTROPHIC NAILS ANY # D1588-AXDMIZXE DYSTROPHIC NAILS ANY # C0261-XHQNGPWG DYSTROPHIC NAILS ANY # O2864-TQGGKMBP DYSTROPHIC NAILS ANY # J5344-PTSJELVY DYSTROPHIC NAILS ANY # F4314-IOQATVZC DYSTROPHIC NAILS ANY # B2187-RSWLUMBL DYSTROPHIC NAILS ANY # L6150-JVCUSBBH DYSTROPHIC NAILS ANY # Z6416-QOBLXJWX DYSTROPHIC NAILS ANY # A3350-XMXRJOID DYSTROPHIC NAILS ANY # G0335-WRGTIXDZ DYSTROPHIC NAILS ANY # O2840-GAIIANPQ DYSTROPHIC NAILS ANY # S1389-VPUFSQXI DYSTROPHIC NAILS ANY # X ray : Ankle, right 3V 12/02/2012 Next Appt Details Provider Name:Sadie Jang , 12/16/2024 08:30:00 AM, [address] [place] [address], [phone], Insurance Providers Payer Name Payer Address Payer Phone Subscriber Number Group Number Insured Name Patient Relationship to Insured Coverage Start Date Coverage End Date Medicare National [employer] [address] [facility] [place] [address] [id number] Elsa Rhodes Self - patient is the insured [employer] [address] [place] [address] [phone] [id number] Elsa Rhodes Self - patient is the insured Medical (General) History Medical History History ICD Code hypertension type II diabetes hyperlipidemia gallstones gastroesophageal reflux disease (GERD) sleep apnea kidney stones bronchospasms thyroid Pulmonary embolism left ankle Fx Cataracts Other hammer toe(s) (acquired), right fo ot M20.41 Other hammer toe(s) (acquired), left christopher t M20.42 Surgical History Surgery Date(Month/Year) lap band hysterectomy right carpal tunnel 11/2017 Tooth extraction 03/2023 cataract surgery 06/18/23 Colonoscopy 10/20/23 Hospitalization History Reason Date(Month/Year) [facility]: C-diff 09/04/24 [facility]/ Blood Pressure 03/28/21 [facility] - Low blood pressure- fluids replacement 10/31 [facility]- low BP 04/06/20 [facility]- nausea,blo od pressure, vomiting, and [facility] - fell- fractured ankle 09/14/2019 [facility]- Ischemic bowel-4 day stay [facility] - vomiting/diarrhea/dehydration 04/12- 04/16/18 Admitted to [facility]; pulisidro emb sosa x 5 days 01/12/14-01/17/14
== END 2024-09-30 09:54 | disposition home or self-care (01) ==
LOC: HO.HCS 08:58
PROVIDERS: PCP Internal Medicine; Visit Provider Nurse Practitioner Family
DX: Z09 Encounter for follow-up examination after completed treatment for conditions other than malignant neoplasm (principal); I42.9 Cardiomyopathy, unspecified; I10 Essential (primary) hypertension; R63.5 Abnormal weight gain
CPT/HCPCS: 93010; 99214; G2211

== ENCOUNTER → 2024-09-30 08:57 | Outpatient (BNVA) | payer MEDICARE, SELFPAY | PROVIDERS: PCP Internal Medicine; Visit Provider Nurse Practitioner Family | DX: Z09 Encounter for follow-up examination after completed treatment for conditions other than malignant neoplasm (principal); I42.9 Cardiomyopathy, unspecified; I10 Essential (primary) hypertension; R63.5 Abnormal weight gain; R94.31 Abnormal electrocardiogram [ECG] [EKG] | CPT/HCPCS: 93005; 99212 ==

== ENCOUNTER 2024-10-06 09:19 | Outpatient (AMB) | payer MEDICARE, SELFPAY ==
--- OUTSIDE RECORDS SUMMARY | 2024-09-30 11:20 | XMS_ITS | Encounter Summary ---
Author Organization [facility] Address [address] [facility] [address] [place] [phone] Phone Care Team Providers Care Clay Roaster Name Role Phone Shawn Omer MD Primary Care Provider [phone] Kal An MD Unavailable [phone] Shawn Omer MD Unavailable [phone] Laya Sandoval MD Unavailable Delaney Soriano NP Unavailable [phone] Toby Nelson MD Unavailable [phone] Reason for Referral * Home Health Care - New Request Specialty Diagnoses / Procedures Referred By Contflorencia t Referred To Contact Home Health Services Diagnoses S/P colectomy C. difficile colitis Tato Pineda PA-C [address] [place] [address] Phone: tel: fax: [email or web address]:[email or web address] Referral ID Status Reason Start Date Expiration Date V isits Requested Visits Authorized [id number] New Request 09/30/2024 09/30/2025 1 1 Reason for Visit * Reason Comments TCM Visit [facility] d/c Encounter Details Date Type Department Care Team (Late st Contact Info) Description 09/30/2024 11:20 AM EDT [facility] [address] [place] [address] Tato Pineda PA-C [address] [place] [address] [email or web address] C. difficile colitis (Primary Dx); S/P colectomy; Iron deficiency anemia, unspecified iron deficiency anemia type; Mixed stress and urge urinary incontinence; Bruising; Adenoma of left adrenal gland; Type 2 diabetes mellitus with peripheral neuropathy; Chronic heart failure, unspecified heart failure type; Leukocytosis, unspecified type Social History Tobacco Use Types Packs/Day Years Used Date Smoking Tobacco: Never Passive Smoke Exposure: Never Smokeless Tobacco: Never Alcohol Use Standard Drinks/Week Comments Never 0 (1 standard drink = 0.6 oz pur e alcohol) Home Health Assessment: Transportation Answer Date Recorded Lack of Transportation (Medical) No 10/01/2024 Lack of Transportation (Non-Medical) No 10/01/2024 Patient Unable or Declines to Respond No 10/01/2024 Education Answer Date Recorded Are you interested in more education? Not on tati e 06/07/2022 Are you concerned about learning? Not on file 06/07/2022 No 06/07/2022 No 06/07/2022 Digital Access Answer Date Recorded No 07/03/2022 No 07/03/2022 Reliable internet access at home? Not on file 07/03/2022 Device with a working camera? Not on file Intimate Partner Violence Answer Date R ecorded Are you denied basic needs s uch as food, clothing, or medical care? No 12/14/2023 In the past 12 months have y ou been in a relationship with a person who hurts, threatens, or tries to control you? No 12/14/2023 Are you denied basic needs s uch as food, clothing, or medical care? No 12/14/2023 In the past 12 months have y ou been in a relationship with a person who hurts, threatens, or tries to control you? No 12/14/2023 Comments No Sex and Gender Information Value Date Recorded Sex Assigned at Not on file Legal Sex Female 8:48 AM EST Gender Identity Not on file Sexual Orientation Not on file documented as of this encounter Last Filed Vital Signs Vital Sign Reading Time Taken Comments Blood Pressure 104/68 09/30/2024 11:10 AM EDT Pulse 103 09/30/2024 11:10 AM EDT Temperature 36.2 C (97.2 F) 09/30/2024 11:10 AM EDT Respiratory Rate 23 09/30/2024 11:10 AM EDT Oxygen Saturation 95% 09/30/2024 11:10 AM EDT Inhaled Oxygen Concentration - - Weight 75.5 kg (166 lb 6.4 oz) 09/30/2024 11:10 AM EDT Height 159.6 cm (5' 2.84 ) 09/30/2024 11:10 AM E DT Body Mass Index 29.63 09/30/2024 11:10 AM EDT documented in this encounter Progress Notes * Tato Pineda PA-C - 09/30/2024 11:20 AM EDTAddended by: TATO PINEDA on: 10/01/2024 07:52 AM Modules accepted: Orders * Tato Pineda PA-C - 09/30/2024 11:20 AM EDTAddended by: TATO PINEDA on: 10/01/2024 08:06 AM Modules accepted: Orders * Tato Pineda PA-C - 09/30/2024 11:20 AM EDT Subjective Elsa Rhodes is a 74 y.o. female. History of Present Illness TCM Post Discharge Visit Date of admission: 09/23/2024 Date of discharge: 09/29/2024 Here for f/u of recent hospitalization, discharged . See RN Post-Discharge Phone Follow-Up Note for specific dates of hospitalization, discharge diagnosis, medication reconciliation and specifics of follow up appointments. Discharge summary, including hospital course, laboratory results, imaging, and other test results as applicable reviewed. Brief summary of hospitalization: 74-year-old female with past medical history of pulmonary embolism on Xarelto, pacemaker in place, hypothyroidism, diabetes, cardiomyopathy (ejection fraction 35% per patient), GERD, hyperlipidemia who presented to [facility] in 4 months with concerns for diarrhea and feeling unwell forfew days. She was originally diagnosed with C. difficile diarrhea on 08/23/2024 and completed a 10-day course of oral vancomycin. During the recent hospitalization she was admitted to the hospital forC. difficile colitis and sepsis. CT scan revealed findings consistent with colitis and Pseudomonas anxiety and depression pseudomembranous colitis. Indeterminate 1.8 cm left adrenal nodule could be fu rther characterized with nonemergent adrenal CT scan. Patient declined quite rapidly and developed septic shock requiring pressor support and required urgent surgical evaluation the patient was brought to the OR on 09/24/2024 and had exploratory laparotomy with subtotal colectomy with distal transection at the proximal intraperitoneal rectum with creation of end ileostomy with kevni wound VAC placement. Shortly after surgery patient septic shock resolved. She was continued to improve from a surgical standpoint without any nausea or vomiting and was tolerating her diet well which was advanced from liquids to low residue. She was having adequate output from her ileostomy. She did develop acute m etabolic encephalopathy secondary to her sepsis which also resolved. She developed quite significant electrolyte derangements likely in the setting of malnutrition, surgery, and sepsis. She had severe hypophosphatemia, hypokalemia, and hypomagnesia which was repleted on multiple occasions. Patient was discharged with continued magnesium p.o. as well as phosphorus supplements. Recommendations were to have a CBC, CMP, magnesium, phosphorus level, And CRP repeated approximately 1 week following her discharge. Upon discharge her CRP was 11 and white blood cells wereelevated at 16. She was discharged on 09/29/2024 with VNA services including correction, PT, and OT. Since hospitalization: Since her discharge, she has been taking magnesium supplements and is awaiting a phosphorus supplement from the pharmacy which should be delivered today. She has had to relieve gas from her ostomy a few times and has changed the bag once. She is not comfortable with changing the bag and is concerned about potential leaks. She has an appointment scheduled with a colorectal surgeon next Friday. She has been experiencing urinary incontinence and is concerned about potential skin breakdown in her groin area due to urine exposure. She has noticed red colon on her back, which were first observed two days post-surgery and have not improved since. She has not applied any lotions or creams to these areas. She reports no pain or itchiness in the rash area but occasionally feels the urge to scratch. She is able to stand with the aid of a walker. She had a cardiology appointment today with Alessandro Soriano, a nurse practitioner at [facility] cardiology, which she found reassuring. No changes were made to her treatment plan. She was advised to continue taking Lasix daily and that her lower extremity edema should improve over time. She has been taking iron supplements for several years and occasionally takes B12 supplements. She has an upcoming appointment with Dr. Omer on 12/22/2024 and with endocrinology on 11/15/2024. She has been advised to discontinue Mounjaro and is considering restarting metformin at its normal dose. 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 She states that she has not heard from VNA services yet and she is getting worried. She notes that she feels excessively weak and needs assistance with ostomy teaching. She was told by the hospital that they would be the ones planning the VNA services. Current Outpatient Medications Ordered in Epic Medication Sig aluminum hydroxide magnesium carbonate sodium bicarbonate (GAVISCON 80) 80-14.2 mg Chew Take 2 tablets by mouth 4 (four) times a day as needed (GERD). ascorbic acid, vitamin C, (VITAMIN C) 250 MG tablet Take 250 mg by mouth daily. cholecalciferol, vitamin D3, 25 mcg (1,000 unit) capsule Take 1,000 Units by mouth as directed. 1000 units Sun/Tue//Sat & 2000 units MWF cholestyramine (QUESTRAN) 4 gram packet as needed. 1-2 times a week ciprofloxacin HCl (CIPRO) 500 MG tablet 500 mg. empagliflozin (JARDIANCE) 10 mg tablet Take 1 tablet (10 mg total) by mouth daily. ferrous gluconate 324 mg (37.5 mg elemental) Tab take 1 tablet by mouth every day fluoride, sodium, (PREVIDENT 5000 BOOSTER) 1.1 % Pste 1 application 2 (two) times a day. FLUoxetine (PROZAC) 10 MG capsule Take 1 capsule (10 mg total) by mouth daily. furosemide (LASIX) 20 MG tablet Take 1 tablet (20 mg total) by mouth daily. galcanezumab-gnlm (EMGALITY) 120 mg/mL subcutaneous syringe Inject 1 mL (120 mg total) under the skin every 30 (thirty) days. hyoscyamine (LEVSIN SL) 0.125 mg SL tablet Take 0.125 mg by mouth every 4 (four) hours as needed for cramping (specific location in comments). PRN ketoconazole 2 % cream Apply topically 2 (two) times a day as needed. To groin rash levothyroxine (SYNTHROID, LEVOTHROID) 88 MCG tablet Take 1 tablet (88 mcg total) by mouth every morning. MAGNESIUM ORAL Take 500 mg by mouth daily. Indications: take 1 tab daily, except on Mondays and Fridays take 2 tabs Medication-Free Text as directed Dx: NIDDM/Polyneuropathy (E11.42), Hammertoe Foot Deformity (M20.41,M20.42), Preulcerative Skin Lesion(s) (L85.1 metFORMIN (GLUCOPHAGE-XR) 500 MG 24 hr tablet Take 2 tablets, orally twice daily, or as directed metoprolol succinate (TOPROL-XL) 25 MG 24 hr tablet TAKE 1 TABLET DAILY. metroNIDAZOLE (FLAGYL) 500 MG tablet 500 mg. MOUNJARO 7.5 mg/0.5 mL PnIj subcutaneous pen INJECT 0.5 ML (7.5 MG TOTAL) UNDER THE SKIN ONCE A WEEK. nortriptyline (PAMELOR) 50 MG capsule TAKE 1 CAPSULE NIGHTLY AT BEDTIME omeprazole (PRILOSEC) 20 MG capsule Take 1 capsule (20 mg total) by mouth daily. ondansetron (ZOFRAN-ODT) 8 MG disintegrating tablet Take 1 tablet (8 mg total) by mouth every 8 (eight) hours as needed for nausea. ONETOUCH VERIO Strp strips Use as directed to monitor glucose once daily Dx E11.42 rivaroxaban (XARELTO) 20 mg Tab Take 1 tablet (20 mg total) by mouth daily. sacubitriL-valsartan (ENTRESTO) 49-51 mg per tablet Take by mouth 2 (two) times a day. simvastatin (ZOCOR) 20 MG tablet Take 1 tablet (20 mg total) by mouth nightly at bedtime. triamcinolone acetonide 0.1 % cream daily as needed (for skin issues). Review of Systems All other systems reviewed and are negative. Objective Physical Exam Blood pressure 104/68, pulse (!) 103, temperature 36.2 ??C (97.2 ??F), temperature source Temporal,resp. rate 23, height 159.6 cm (5' 2.84 ), weight 75.5 kg (166 lb 6.4 oz), SpO2 95%, not currently . Gen: Alert, pleasant and cooperative, no acute distress. HEENT: Atraumatic, normocephalic. PERRL. No gross hearing deficits noted. Mucous membranes moist. Neck supple and symmetrical. Skin: [place], warm, dry. Multiple scattered blanchable lesions noted along her back and buttocks regions. Chest: No focal tenderness to palpitation. Lungs clear to auscultation bilaterally without accessory breath sounds or increased respiratory effort. CV: RRR, no murmurs, rubs, gallops appreciated. 2+ pitting edema of bilateral lower extremities. Abd: Ostomy in place with green stool in the ostomy bag. No evidence of surrounding erythema or warmth to the ostomy site. Ext: No gross deformities. Walking with a walker. Neuro: CN II-XII grossly intact. Alert and oriented x 3. Normal speech and language. Memory intact.Mood appropriate. Results Assessment & Plan 1. C. difficile colitis status post colectomy: Recently had C. difficile colitis with septic shock status post colectomy with ostomy bag placementand was discharged from the hospital on 09/29/2024. During her hospital stay she was noted to have significant electrolyte abnormalities, will obtain a CMP, CRP, CBC, iron and iron binding capacity, ferritin, B12, folate, magnesium, and phosphorus levels to reassess. She has been managing her ostomysite well at home but notes that she still struggles with it. She is concerned about stool leakage.She has been taking magnesium supplements at home and is awaiting the phosphorus supplement that should be delivered from the pharmacy today. She does have an appointment scheduled with a colorectal surgeon next Friday. Given her significant weakness and recent septic shock as well as recent surgery, will order VNA services for correction, PT, and OT. PT and OT should be used to help regain her strength and safety and complete ADLs. long-term should be used for ostomy teaching as she feels she is not sufficient in it and is uncomfortable doing it herself. VNA services were suppos ed to come from the hospital, however she has not heard from them yet. 2. Urinary incontinence: She reports urinary incontinence with difficulty reaching the bathroom in time to urinate as well as incontinence overnight. She is concerned about skin breakdown due to the urine being near where her incision sites were. Advised to use pads or briefs and change them promptly after episodes of incontinence to prevent skin breakdown and keep the area clean. 3. Skin bruising: She reports having red colon on her back and buttocks that she noticed after her surgery and these colon have not worsened or improved. On exam there was multiple scattered blanchable pink lesions along her back and buttocks region, likely in the setting of underlying bruising from trauma from being laid on her back and from the trauma from the surgery. No evidence of skin rash or infection at this time, no erythema or warmth. I suspect that these will resolve spontaneously over time. No ointments or creams are indicated at this time. 4. Adrenal nodule: On the CT scan during her hospitalization she was noted to have a left 1.8 cm adrenal nodule with recommendations to do nonemergent outpatient CT scan follow- up. Upon chart review, she has had a leftadrenal nodule for many years, with the most recent CT scan prior being in 2019 which showed a left2.2 cm adrenal nodule. Given that the nodule has actually decreased in size, this is extremely reassuring. Discussed getting repeat imaging in approximately 6 months, patient would like to hold off at this time. 5. Diabetes: She has a history of diabetes following with [facility] endocrinology with current management including Mounjaro 7.5 mg weekly, metformin 1000 mg twice daily, and Jardiance 10 mg daily. Her Mounjaro was discontinued during her hospitalization given the significant GI side effects that can occur with Mounjaro as well as the potential for gastric paresis. She is planning on reaching out to the endocrinology office to see if there is any additional things she could be doing to help manage her blood sugargiven the discontinuation of the Mounjaro which I agree with. 6. Chronic heart failure: She has a history of chronic heart failure following with [facility] cardiology and hadan appointment today. No medication changes were made today. She does have 2+ pitting edema bilateral lower extremities, likely in the setting of electrolyte abnormalities from the recent hospitalization. No indication to change her Lasix at this time. I obtained verbal consent from the patient or their proxy to record this visit for purposes of producing a draft of the encounter documentation. Tato Pineda PA-C documented in this encounter Miscellaneous Notes * Assessment & Plan Note - Tato Pineda PA-C - 09/30/2024 12:02 PM EDT Associated Problem(s): Chronic heart failure She has a history of chronic heart failure following with [facility] cardiology and hadan appointment today. No medication changes were made today. She does have 2+ pitting edema bilateral lower extremities, likely in the setting of electrolyte abnormalities from the recent hospitalization. No indication to change her Lasix at this time. * Assessment & Plan Note - Tato Pineda PA-C - 09/30/2024 12:02 PM EDT Associated Problem(s): Type 2 diabetes mellitus with peripheral neuropathy She has a history of diabetes following with [facility] endocrinology with current management including Mounjaro 7.5 mg weekly, metformin 1000 mg twice daily, and Jardiance 10 mg daily. Her Mounjaro was discontinued during her hospitalization given the significant GI side effects that can occur with Mounjaro as well as the potential for gastric paresis. She is planning on reaching out to the endocrinology office to see if there is any additional things she could be doing to help manage her blood sugargiven the discontinuation of the Mounjaro which I agree with. * Assessment & Plan Note - Tato Pineda PA-C - 09/30/2024 12:01 PM EDT Associated Problem(s): Adrenal adenoma On the CT scan during her hospitalization she was noted to have a left 1.8 cm adrenal nodule with recommendations to do nonemergent outpatient CT scan follow- up. Upon chart review, she has had a leftadrenal nodule for many years, with the most recent CT scan prior being in 2019 which showed a left2.2 cm adrenal nodule. Given that the nodule has actually decreased in size, this is extremely reassuring. Discussed getting repeat imaging in approximately 6 months, patient would like to hold off at this time. * Assessment & Plan Note - Tato Pineda PA-C - 09/30/2024 12:01 PM EDT Associated Problem(s): Bruising She reports having red colon on her back and buttocks that she noticed after her surgery and these colon have not worsened or improved. On exam there was multiple scattered blanchable pink lesions along her back and buttocks region, likely in the setting of underlying bruising from trauma from being laid on her back and from the trauma from the surgery. No evidence of skin rash or infection at this time, no erythema or warmth. I suspect that these will resolve spontaneously over time. No ointments or creams are indicated at this time. * Assessment & Plan Note - Tato Pineda PA-C - 09/30/2024 12:01 PM EDT Associated Problem(s): Mixed stress and urge urinary incontinence She reports urinary incontinence with difficulty reaching the bathroom in time to urinate as well as incontinence overnight. She is concerned about skin breakdown due to the urine being near where her incision sites were. Advised to use pads or briefs and change them promptly after episodes of incontinence to prevent skin breakdown and keep the area clean. * Assessment & Plan Note - Tato Pineda PA-C - 09/30/2024 12:00 PM EDT Associated Problem(s): C. difficile colitis Recently had C. difficile colitis with septic shock status post colectomy with ostomy bag placementand was discharged from the hospital on 09/29/2024. During her hospital stay she was noted to have significant electrolyte abnormalities, will obtain a CMP, CRP, CBC, iron and iron binding capacity, ferritin, B12, folate, magnesium, and phosphorus levels to reassess. She has been managing her ostomysite well at home but notes that she still struggles with it. She is concerned about stool leakage.She has been taking magnesium supplements at home and is awaiting the phosphorus supplement that should be delivered from the pharmacy today. She does have an appointment scheduled with a colorectal surgeon next Friday. Given her significant weakness and recent septic shock as well as recent surgery, will order VNA services for correction, PT, and OT. PT and OT should be used to help regain her strength and safety and complete ADLs. long-term should be used for ostomy teaching as she feels she is not sufficient in it and is uncomfortable doing it herself. VNA services were suppos ed to come from the hospital, however she has not heard from them yet. documented in this encounter Plan of Treatment Upcoming Encounters Date Type Department Care Team (Late st Contact Info) Description 10/07/2024 10:00 AM EDT [facility] [address] [place], [place] [phone] Leslie Lo, SAUD [address] [place] [address] 10/08/2024 1:00 AM EDT [facility] [address] [place] [phone] Jeanette Phillips [address] [place] [address] 10/11/2024 12:30 AM EDT [facility] [address] [place] [phone] Leslie Lo RN [address] [place] [address] 10/12/2024 2:00 AM EDT [facility] [address] [place] [phone] Jeanette Phillips [address] [place] [address] 10/14/2024 Home Care Visit [facility] [address] [place] [address] Leslie Lo RN [address] [place] [address] 10/15/2024 1:00 AM EDT Home [facility] [address] [place] [phone] Jeanette Phillips [address] [place] [address] 10/18/2024 Home Care Visit [facility] [address] [place] [address] Leslie Lo RN [address] [place] [address] 10/19/2024 1:00 AM EDT Home [facility] Visit [facility] [address] [place] [address] Jeanette Phillips [address] [place] [address] 10/21/2024 Home Care Visit [facility] [address] [place] [phone] Leslie Lo, SAUD [address] [place] [address] 10/22/2024 1:00 AM EDT [facility] Visit [facility] [address] [place] [address] Jeanette Phillips [address] [place] [address] 10/25/2024 12:30 AM EDT [facility] [address] [place] [phone] Leslie Lo, SAUD [address] [place] [address] 10/26/2024 2:00 AM EDT [facility] [address] [place] [phone] PhillipsJeanette oliva [address] [place] [address] 10/28/2024 Home Care Visit [facility] [address] [place] [phone] Leslie Lo, SAUD [address] [place] [address] 10/29/2024 1:00 AM EDT Home [facility] Visit [facility] [address] [place] [phone] PhillipsJeanette oliva [address] [place] [address] 11/01/2024 2:00 AM EDT Home [facility] Visit [facility] [address] [place] [phone] Leslie Lo, RN [address] [place] [address] 11/02/2024 2:00 AM EDT [facility] [address] [place] [address] PhillipsJeanette oliva [address] [place] [address] 11/04/2024 Home Care Visit [facility] [address] [place] [address] Leslie Lo RN [address] [place] [address] 11/05/2024 1:00 AM EDT [facility] [address] [place] [address] PhillipsJay Jay [address] [address] 11/08/2024 1:30 AM EDT Home [facility] [address] [place] [address] Leslie Lo RN [address] [place] [address] 11/09/2024 2:00 AM EDT Home [facility] [address] [place] [phone] Jeanette Phillips [address] [place] [address] 11/11/2024 12:30 AM EDT Home Care [facility] [address] [place] [address] Leslie Lo, SAUD [address] [place] [address] 11/12/2024 1:00 AM EDT Home [facility] Visit [facility] [address] [place] [address] Phillips, Jeanette [address] [place] [address] 11/15/2024 1:30 AM EDT [facility] [address] [place] [address] Leslie Lo RN [address] [place] [address] 11/15/2024 9:00 AM EDT Office Visit [facility] [address] [phone] Suki Altman PA-C [address] [place] [address] 11/16/2024 2:00 AM EDT Home [facility] Visit [facility] [address] [place] [phone] PhillipsJeanette oliva [address] [place] [address] 11/18/2024 [facility] [facility] [address] [place] [address] Leslie Lo RN [address] [place] [address] 11/19/2024 1:00 AM EDT Home Care Visit [facility] [address] [place] [address] Phillips Jeanette [address] [place] [address] 11/22/2024 Home Care Visit [facility] [address] [place] [address] Leslie Lo RN [address] [place] [address] 11/23/2024 2:00 AM EDT Home [facility] Visit [facility] [address] [place] [phone] Jeanette Phillips [address] [place] [address] 11/25/2024 Appointment [facility] [address] [place] [address] Leslie Lo RN [address] [place] [address] 11/26/2024 1:00 AM EDT Home Care Visit [facility] [address] [place] [phone] PhillipsJay Jay [address] [address] 12/22/2024 9:30 AM EST Office Visit [facility] Internal Medicine [address] [place] [address] Shawn Omer MD [address] [place] [address] 03/14/2025 8:20 AM EST Office Visit [facility] Endocrinology [place] [address] [place] [phone] Laya Sandoval MD [address] [place] [phone] Scheduled Referrals Name Type Priority Associated Diagnoses Orde r Schedule Referral to Home Health [facility] Outpatient Referral Routine S/P colectomy C. difficile colitis Ordered: 09/30/2024 documented as of this encounter Results * (ABNORMAL) CBC and differential (10/04/2024 7:22 AM EDT) WBC 19.81(H) 4.00 - 11.00 K/uL [facility] RBC 4.29 4.00 - 5.20 M/uL [facility] HGB 12.1 12.0 - 16.0 g/dL [facility] HCT 39.5 36.0 - 46.0 % [facility] PLT 380 150 - 450 K/uL [facility] MCV 92.1 80.0 - 100.0 fL [facility] MCH 28.2 27.0 - 31.0 pg [facility] MCHC 30.6(L) 32.0 - 36.0 g/dL [facility] RDW 15.3(H) 11.5 - 14.5 % [facility] MPV 9.7 8.4 - 12.0 fL [facility] NRBC 0.00 0.00 /100 WBCs [facility] ABSOLUTE NRBC 0.00 0.00 K/uL [facility] DIFF METHOD Manual [facility] TOTAL CELLS COUNTED 100 [facility] NEUTS 75.0 48.0 - 76.0 % [facility] BANDS 3.0 0 - 10 % [facility] LYMPHS 13.0(L) 18.0 - 41.0 % [facility] MONOS 5.0 4.0 - 11.0 % [facility] EOS 1.0 0.0 - 5.0 % [facility] MYELOS 2.0(H) 0 % [facility] METAS 1.0(H) 0 % [facility] ABSOLUTE NEUTS 15.45(H) 1.92 - 7.60 K/uL [facility] ABSOLUTE LYMPHS 2.58 0.72 - 4.10 K/uL [facility] ABSOLUTE MONOS 0.99 0.16 - 1.10 K/uL [facility] ABSOLUTE EOS 0.20 0.00 - 0.50 K/uL [facility] ABSOLUTE MYELOS 0.40 K/uL [facility] ABSOLUTE METAS 0.20 K/uL [facility] Blood 10/04/2024 7:22 AM EDT 10/04/2024 7:30 AM EDT [facility] BLOOD ORDERABLES Final R esult [address] [address] * (ABNORMAL) Ferritin (09/30/2024 11:47 AM EDT) FERRITIN 365(H) 13 - 150 ug/L [facility] Blood 09/30/2024 11:4 7 AM EDT 09/30/2024 12:01 PM EDT [facility] LAB BLOOD ORDERABLES Final R esult Performing Organization Address City/[facility]/ZIP Co de Phone Number [address] [address] * Iron and iron binding capacity (09/30/2024 11:47 AM EDT) IRON 80 30 - 160 ug/dL [facility] IRON BINDING CAPACITY 229 228 - 428 ug/dL [facility] TRANSFERRIN SATURAT. 35 15 - 50 % [facility] Blood 09/30/2024 11:4 7 AM EDT 09/30/2024 12:01 PM EDT [facility] AT[facility] LAB BLOOD ORDERABLES Final R esult [address] [address] * (ABNORMAL) C-Reactive Protein (09/30/2024 11:47 AM EDT) C REACTIVE PROTEIN 7.3(H) 0.0 - 4.0 mg/L [facility] Blood 09/30/2024 11:4 7 AM EDT 09/30/2024 12:01 PM EDT [facility] Pineda PA-C LAB BLOOD ORDERABLES Final R esult [address] [address] * Phosphorus (09/30/2024 11:47 AM EDT) PHOSPHORUS 2.7 2.7 - 4.5 mg/dL [facility] Blood 09/30/2024 11:4 7 AM EDT 09/30/2024 12:01 PM EDT [facility] PA-C LAB BLOOD ORDERABLES Final R esult Performing Organization Address City/[facility]/ZIP Co de Phone Number [address] [address] * Magnesium (09/30/2024 11:47 AM EDT) Pathologist [facility] MAGNESIUM 1.8 1.6 - 2.6 mg/dL [facility] Blood 09/30/2024 11:4 7 AM EDT 09/30/2024 12:01 PM EDT [facility]-C LAB BLOOD ORDERABLES Final R esult Performing Organization Address City/[facility]/ZIP Co de Phone Number [address] [address] * (ABNORMAL) Comprehensive metabolic panel (09/30/2024 11:47 AM EDT) SODIUM 135 133 - 146 mmol/L [facility] POTASSIUM 4.5 3.3 - 5.1 mmol/L [facility] Comment:Specimen slightly he molyzed, result may be falsely elevated. CHLORIDE 102 96 - 108 mmol/L [facility] CO2 19(L) 21 - 35 mmol/L [facility] BUN 4(L) 6 - 19 mg/dL [facility] CREATININE 0.60 0.5 - 1.5 mg/dL [facility] GLUCOSE 127(H) 70 - 99 mg/dL [facility] ALBUMIN 2.6(L) 3.9 - 4.8 g/dL [facility] TOTAL PROTEIN 6.0(L) 6.5 - 8.0 g/dL [facility] CALCIUM 8.5 8.4 - 10.3 mg/dL [facility] ALKALINE PHOSPHATASE 161(H) 39 - 117 U/L [facility] TOTAL BILIRUBIN 0.3 0.0 - 1.2 mg/dL [facility] AST 38(H) 0 - 37 U/L [facility] ALT 11 0 - 40 U/L [facility] GLOBULIN 3.4 1 - 4.8 g/dL [facility] EGFR 94 >59 mL/min/1.7 3m2 [facility] Comment:Estimated glomerular filtration rate calculated using the CKD-EPI refit equation. ANION GAP 19 10 - 20 mmol/L [facility] Blood 09/30/2024 11:4 7 AM EDT 09/30/2024 12:01 PM EDT Tato Pineda PA-C LAB BLOOD ORDERABLES Final R esult [facility] [address] [place] [address] * (ABNORMAL) CBC and differential (09/30/2024 11:47 AM EDT) WBC 20.92(H) 4.00 - 11.00 K/uL [facility] RBC 4.57 4.00 - 5.20 M/uL [facility] HGB 13.0 12.0 - 16.0 g/dL [facility] HCT 40.7 36.0 - 46.0 % [facility] PLT 340 150 - 450 K/uL [facility] MCV 89.1 80.0 - 100.0 fL [facility] MCH 28.4 27.0 - 31.0 pg [facility] MCHC 31.9(L) 32.0 - 36.0 g/dL [facility] RDW 14.9(H) 11.5 - 14.5 % [facility] MPV 9.7 8.4 - 12.0 fL [facility] NRBC 0.00 0.00 /100 WBCs [facility] ABSOLUTE NRBC 0.00 0.00 K/uL [facility] DIFF METHOD Manual [facility] TOTAL CELLS COUNTED 200 [facility] NEUTS 65.0 48.0 - 76.0 % [facility] BANDS 7.0 0 - 10 % [facility] LYMPHS 11.0(L) 18.0 - 41.0 % [facility] MONOS 7.0 4.0 - 11.0 % [facility] EOS 1.0 0.0 - 5.0 % [facility] BASOS 1.0 0.0 - 1.5 % [facility] MYELOS 5.0(H) 0 % [facility] METAS 3.0(H) 0 % [facility] ABSOLUTE NEUTS 15.06(H) 1.92 - 7.60 K/uL [facility] ABSOLUTE LYMPHS 2.30 0.72 - 4.10 K/uL [facility] ABSOLUTE MONOS 1.46(H) 0.16 - 1.10 K/uL [facility] ABSOLUTE EOS 0.21 0.00 - 0.50 K/uL [facility] ABSOLUTE BASOS 0.21(H) 0.00 - 0.15 K/uL [facility] ABSOLUTE MYELOS 1.05 K/uL [facility] ABSOLUTE METAS 0.63 K/uL [facility] VAUGHN CELLS PRESENT(A) None [facility] ELLIPTOCYTES PRESENT(A) None [facility] SCHISTOCYTES 1+(A) None [facility] Blood 09/30/2024 11:4 7 AM EDT 09/30/2024 12:01 PM EDT us Tato Pineda PA-C LAB BLOOD ORDERABLES Final R esult Performing Organization Address City/State/[facility] Co de Phone Number [facility] [address] [place] [address] documented in this encounter Visit Diagnoses Diagnosis C. difficile colitis- Primary S/P colectomy Other postprocedural status Iron deficiency anemia, unspecified iron deficiency anemia type Mixed stress and urge urinary incontinence Mixed incontinence urge and stress (male)(female) Bruising Contusion of unspecified site Adenoma of left adrenal gland Type 2 diabetes mellitus with peripheral neuropathy Chronic heart failure, unspecified heart failure type Leukocytosis, unspecified type documented in this encounter Additional Health Concerns Assessment Noted Time PHQ-2 Depression Total Score: 0 12/14/19 24 1:10 PM EST documented as of this encounter Care Teams Clay Roaster Relationship Specialty Start Date End Date Shawn Omer MD [address] [place] [address] [email or web address] PCP - General Internal Medicine 03/18/14 Kal An MD [address] [place] [address] [employer] Endocrinology 09/02/17 Shawn Omer MD [address] [place] [address] [email or web address] Insurance Assigned Provider 05/17/23 Laya Sandoval MD [address] [address] Endocrinology 05/24/19 Delaney Soriano NP [address] [place] [address] Cardiology 05/24/19 Toby Nelson MD [address] [facility] [place] [address] Hospitalist 12/10/19 documented as of this encounter Additional Source Comments The information contained in this document represents components of the legal health record. It is not the complete legal health record.[facility]
--- OUTSIDE RECORDS SUMMARY | 2024-09-30 11:47 | XMS_ITS | Encounter Summary ---
Author Organization [facility] Address [address] [employer] [facility] [address] [place] [address] Phone Care Team Providers Care Agronomy Specialist Name Role Phone Shawn Omer MD Primary Care Provider [phone] Kal An MD Unavailable Shawn Omer MD Unavailable Laya Sandoval MD Unavailable [phone] Delaney Soriano NP Unavailable [phone] Toby Nelson MD Unavailable [phone] Encounter Details Date Type Department Care Team (Latest Contact Info) Description 09/30/2024 11:47 AM EDT - 09/30/2024 11:59 PM EDT Hospital Encounter [facility] [address] [place], [place] [phone] Sandra Klein PA-C [address] [place] [address] [email or web address] Discharge Disposition: Home or Self Care Social History Tobacco Use Types Packs/Day Years [...] on file documented as of this encounter Medications at Time of Discharge ascorbic acid, vitamin C, (VITAMIN C) 250 MG tablet Take 250 mg by mouth daily. cholecalciferol, vitamin D3, 25 mcg (1,000 unit) capsule Take 1,000 Units by mouth as directed. 1000 units Sun/Fri//Sat & 2000 units MWF cholestyramine (QUESTRAN) 4 gram packet as needed. 1-2 times a week 2 ciprofloxacin HCl (CIPRO) 500 MG tablet Take 500 mg by mouth 2 (two) times a day. 5 10/07/19 25 empagliflozin (JARDIANCE) 10 mg tabletIndications:T ype 2 diabetes mellitus with peripheral neuropathy Take 1 tablet (10 mg total) by mouth daily. 90 tablet 1 4 ferrous gluconate 324 mg (37.5 mg elemental) TabIndications:Iron deficiency anemia, unspecified iron deficiency anemia type take 1 tablet by mouth every day 90 tablet 3 4 fluoride, sodium, (PREVIDENT 5000 BOOSTER) 1.1 % Pste 1 application 2 (two) times a day. 2 FLUoxetine (PROZAC) 10 MG capsuleIndications: History of depression Take 1 capsule (10 mg total) by mouth daily. 90 capsule 3 5 furosemide (LASIX) 20 MG tablet Take 1 tablet (20 mg total) by mouth daily. 90 tablet 3 5 galcanezumab-gnlm (EMGALITY) 120 mg/mL subcutaneous syringeIndications: Other migraine with status migrainosus, intractable Inject 1 mL (120 mg total) under the skin every 30 (thirty) days. 3 mL 3 5 ketoconazole 2 % creamIndications:Fu ngal rash of trunk Apply topically 2 (two) times a day as needed. To groin rash 45 g 3 5 levothyroxine (SYNTHROID, LEVOTHROID) 88 MCG tabletIndications:A cquired hypothyroidism [The details of the medication are not available because there are pending changes by a home health clinician.] 90 tablet 1 5 Medication-Free Text as directed Dx: NIDDM/Polyneuropat hy (E11.42), Hammertoe Foot Deformity (M20.41,M20.42), Preulcerative Skin Lesion(s) (L85.1 metFORMIN (GLUCOPHAGE-XR) 500 MG 24 hr tabletIndications:T ype 2 diabetes mellitus with peripheral neuropathy Take 2 tablets, orally twice daily, or as directed 360 tablet 3 5 metoprolol succinate (TOPROL-XL) 25 MG 24 hr tabletIndications:C hronic systolic congestive heart failure TAKE 1 TABLET DAILY. 90 tablet 3 5 metroNIDAZOLE (FLAGYL) 500 MG tablet Take 500 mg by mouth 3 (three) times a day. 5 10/07/19 25 MOUNJARO 7.5 mg/0.5 mL PnIj subcutaneous penIndications:Type 2 diabetes mellitus with peripheral neuropathy [The details of the medication are not available because there are pending changes by a home health clinician.] 6 mL 1 5 nortriptyline (PAMELOR) 50 MG capsuleIndications: Cyclical vomiting TAKE 1 CAPSULE NIGHTLY AT BEDTIME 90 capsule 3 5 omeprazole (PRILOSEC) 20 MG capsuleIndications: Gastroesophageal reflux disease Take 1 capsule (20 mg total) by mouth daily. 90 capsule 3 5 ondansetron (ZOFRAN-ODT) 8 MG disintegrating tabletIndications:N ausea and vomiting, intractability of vomiting not specified, unspecified vomiting type [The details of the medication are not available because there are pending changes by a home health clinician.] 30 tablet 5 1 ONETOUCH VERIO Strp stripsIndications:T ype 2 diabetes mellitus with peripheral neuropathy Use as directed to monitor glucose once daily Dx E11.42 100 strip 3 5 rivaroxaban (XARELTO) 20 mg Tab Take 1 tablet (20 mg total) by mouth daily. 90 tablet 3 5 simvastatin (ZOCOR) 20 MG tabletIndications:H yperlipidemia Take 1 tablet (20 mg total) by mouth nightly at bedtime. 90 tablet 3 5 sodium,potassium phosphates (PHOS-NAK ORAL) Take 1 packet by mouth daily. 5 10/08/19 25 triamcinolone acetonide 0.1 % cream daily as needed (for skin issues). aluminum hydroxide magnesium carbonate sodium bicarbonate (GAVISCON 80) 80-14.2 mg Chew Take 2 tablets by mouth 4 (four) times a day as needed (GERD). 2 10/02/19 25 hyoscyamine (LEVSIN SL) 0.125 mg SL tablet Take 0.125 mg by mouth every 4 (four) hours as needed for cramping (specific location in comments). PRN 0 10/02/19 25 MAGNESIUM ORALIndications:vera e 1 tab daily, except on Mondays and Fridays take 2 tabs Take 500 mg by mouth daily. Indications: take 1 tab daily, except on Mondays and Fridays take 2 tabs 10/03/19 25 sacubitriL-valsarta n (ENTRESTO) 49-51 mg per tablet Take by mouth 2 (two) times a day. 10/06/19 25 documented as of this encounter Plan of Treatment Upcoming Encounters Date Type Department Care Team (Late st Contact Info) Description 10/07/2024 10:00 AM EDT Home Care Visit [facility] [address] [place] [phone] Leslie Lo RN [address] [place] [address] 10/08/2024 1:00 AM EDT Home Care Visit [facility] [address] [place] [phone] Jeanette Phillips [address] [place] [address] 10/11/2024 12:30 AM EDT Home Care Visit [facility] [address] [place] [phone] Leslie Lo RN [address] [place] [address] 10/12/2024 2:00 AM EDT Home Care Visit [facility] [address] [place] [phone] Jeanette Phillips [address] [place] [address] 10/14/2024 Home Care Visit [facility] [address] [place] [address] Leslie Lo RN [address] [place] [address] 10/15/2024 1:00 AM EDT Home Care Visit [facility] [address] [place] [phone] Jeanette Phillips [address] [place] [address] 10/18/2024 Home Care Visit [facility] [address] [place] [address] Leslie Lo, SAUD [address] [place] [address] 10/19/2024 1:00 AM EDT Home [facility] Visit [facility] [address] [place] [address] Jeanette Phillips [address] [place] [address] 10/21/2024 Home Care Visit [facility] [address] [place] [address] Leslie Lo RN [address] [place] [address] 10/22/2024 1:00 AM EDT Home [facility] Visit [facility] [address] [place] [phone] Jeanette Phillips [address] [place] [address] 10/25/2024 12:30 AM EDT Home Care Visit [facility] [address] [place] [address] Leslie Lo, SAUD [address] [place] [address] 10/26/2024 2:00 AM EDT Home Care Visit [facility] [address] [place] [address] Jeanette Phillips [address] [place] [address] 10/28/2024 Home Care Visit [facility] [address] [place] [phone] Leslie Lo RN [address] [place] [address] 10/29/2024 1:00 AM EDT Home [facility] Visit [facility] [address] [place] [phone] Phillips Jeanette [address] [place] [address] 11/01/2024 2:00 AM EDT Home Care Visit [facility] [address] [place] [address] Leslie Lo RN [address] [place] [address] 11/02/2024 2:00 AM EDT Home Care Visit [facility] [address] [place] [address] Jeanette Phillips [address] [place] [address] 11/04/2024 Home Care Visit [facility] [address] [place] [address] Leslie Lo RN [address] [place] [address] 11/05/2024 1:00 AM EDT Home Care Visit [facility] [address] [place] [address] Jeanette Phillips [address] [place] [address] 11/08/2024 1:30 AM EDT Home Care Visit [facility] [address] [place] [address] Leslie Lo RN [address] [place] [address] 11/09/2024 2:00 AM EDT Home Care Visit [facility] [address] [place] [phone] Phillips [address] [address] 11/11/2024 12:30 AM EDT Home Care Visit [facility] [address] [place] [phone] Leslie Lo RN [address] [place] [address] 11/12/2024 1:00 AM EDT [facility] [address] [place] [phone] [address]qu[address] [address] 11/15/2024 1:30 AM EDT Home Care Visit [facility] [address] [place] [phone] Leslie Lo, SAUD [address] [place] [address] 11/15/2024 9:00 AM EDT Office Visit [facility] Endocrin[facility] [address] [phone] Suki Altman PA-C [address] [place] [address] 11/16/2024 2:00 AM EDT Home Care Visit [facility] [address] [place] [phone] Jeanette Phillips [address] [place] [address] 11/18/2024 Home Care Visit [facility] [address] [place] [phone] Leslie Lo, SAUD [address] [place] [address] 11/19/2024 1:00 AM EDT [facility] Visit [facility] [address] [place] [address] Jeanette Phillips [address] [place] [address] 11/22/2024 Home Care Visit [facility] [address] [place] [phone] Leslie Lo RN [address] [place] [address] 11/23/2024 2:00 AM EDT [facility] [address] [place] [phone] Jeanette Phillips [address] [place] [address] 11/25/2024 Appointment [facility] [address] [place] [address] Leslie Lo, SAUD [address] [place] [address] 11/26/2024 1:00 AM EDT Home [facility] Visit [facility] [address] [place] [address] Jeanette Phillips [address] [place] [address] 12/22/2024 9:30 AM EST Office Visit [facility] [address] [place] [address] Shawn Omer MD [address] [place] [address] [email or web address] 03/14/2025 8:20 AM EST Office Visit [facility] [place] [address] [place] [address] Laya Sandoval MD [address] [place] [address] [email or web address] documented as of this encounter Procedures Procedure Name Priority Date/Time Associated Diagnosis Comments COMPREHENSIVE METABOLIC PANEL Routine 09/30/2024 11:47 AM EDT S/P colectomy C. difficile colitis Iron deficiency anemia, unspecified iron deficiency anemia type IRON AND IRON BINDING CAPACITY Routine 09/30/2024 11:47 AM EDT Iron deficiency anemia, unspecified iron deficiency anemia type CBC AND DIFFERENTIAL Routine 09/30/2024 11:47 AM EDT S/P colectomy C. difficile colitis C-REACTIVE PROTEIN Routine 09/30/2024 11 :47 AM EDT S/P colectomy C. difficile colitis PHOSPHORUS Routine 09/30/2024 11:47 AM EDT S/P colectomy C. difficile colitis MAGNESIUM Routine 09/30/2024 11:47 AM EDT S/P colectomy C. difficile colitis FERRITIN Routine 09/30/2024 11:47 AM EDT Iron deficiency anemia, unspecified iron deficiency anemia type documented in this encounter Results * (ABNORMAL) CBC and differential (09/30/2024 11:47 AM EDT) WBC 20.92(H) 4.00 - 11.00 K/uL [facility] RBC 4.57 4.00 - 5.20 M/uL [facility] HGB 13.0 12.0 - 16.0 g/dL [facility] HCT 40.7 36.0 - 46.0 % [facility] PLT 340 150 - 450 K/uL [facility] MCV 89.1 80.0 - 100.0 fL [facility] MCH 28.4 27.0 - 31.0 pg [facility] MCHC 31.9(L) 32.0 - 36.0 g/dL [facility] RDW 14.9(H) 11.5 - 14.5 % [facility] MPV 9.7 8.4 - 12.0 fL [facility] NRBC 0.00 0.00 /100 WBCs [facility] ABSOLUTE NRBC 0.00 0.00 K/uL [facility] DIFF METHOD Manual [facility] TOTAL CELLS COUNTED 200 [facility] NEUTS 65.0 48.0 - 76.0 % [facility] BANDS 7.0 0 - 10 % [facility] LYMPHS 11.0(L) 18.0 - 41.0 % [facility] MONOS 7.0 4.0 - 11.0 % [facility] EOS 1.0 0.0 - 5.0 % [facility] BASOS 1.0 0.0 - 1.5 % [facility] MYELOS 5.0(H) 0 % [facility] METAS 3.0(H) 0 % [facility] ABSOLUTE NEUTS 15.06(H) 1.92 - 7.60 K/uL [facility] ABSOLUTE LYMPHS 2.30 0.72 - 4.10 K/uL [facility] ABSOLUTE MONOS 1.46(H) 0.16 - 1.10 K/uL [facility] ABSOLUTE EOS 0.21 0.00 - 0.50 K/uL [facility] ABSOLUTE BASOS 0.21(H) 0.00 - 0.15 K/uL [facility] ABSOLUTE MYELOS 1.05 K/uL [facility] ABSOLUTE METAS 0.63 K/uL [facility] CELLS PRESENT(A) None [facility] ELLIPTOCYTES PRESENT(A) None [facility] SCHISTOCYTES 1+(A) None [facility] Blood 09/30/2024 11:4 7 AM EDT 09/30/2024 12:01 PM EDT Sandra Klein PA-C LAB BLOOD ORDERABLES Final R esult [facility] [address] [place] [address] * (ABNORMAL) Comprehensive metabolic panel (09/30/2024 11:47 AM EDT) SODIUM 135 133 - 146 mmol/L [facility] POTASSIUM 4.5 3.3 - 5.1 mmol/L [facility] Comment:Specimen slightly he molyzed, result may be falsely elevated. CHLORIDE 102 96 - 108 mmol/L [facility] CO2 19(L) 21 - 35 mmol/L [facility] BUN 4(L) 6 - 19 mg/dL [facility] CREATININE 0.60 0.5 - 1.5 mg/dL [facility] GLUCOSE 127(H) 70 - 99 mg/dL [facility] ALBUMIN 2.6(L) 3.9 - 4.8 g/dL [facility] TOTAL PROTEIN 6.0(L) 6.5 - 8.0 g/dL [facility] CALCIUM 8.5 8.4 - 10.3 mg/dL [facility] ALKALINE PHOSPHATASE 161(H) 39 - 117 U/L [facility] TOTAL BILIRUBIN 0.3 0.0 - 1.2 mg/dL [facility] AST 38(H) 0 - 37 U/L [facility] ALT 11 0 - 40 U/L [facility] GLOBULIN 3.4 1 - 4.8 g/dL [facility] EGFR 94 >59 mL/min/1.7 3m2 [facility] Comment:Estimated glomerular filtration rate calculated using the CKD-EPI refit equation. ANION GAP 19 10 - 20 mmol/L [facility] Blood 09/30/2024 11:4 7 AM EDT 09/30/2024 12:01 PM EDT us Sandramilly Liony PA-C LAB BLOOD ORDERABLES Final R esult [address] [address] * Magnesium (09/30/2024 11:47 AM EDT) MAGNESIUM 1.8 1.6 - 2.6 mg/dL [facility] Blood 09/30/2024 11:4 7 AM EDT 09/30/2024 12:01 PM EDT [facility] Klein PA-C LAB BLOOD ORDERABLES Final R esult Performing Organization Address [facility]/ZIP Co de Phone Number [address] [address] * Phosphorus (09/30/2024 11:47 AM EDT) PHOSPHORUS 2.7 2.7 - 4.5 mg/dL [facility] Blood 09/30/2024 11:4 7 AM EDT 09/30/2024 12:[address] [facility] LAB BLOOD ORDERABLES Final R esult Performing Organization Address City/[facility]/ZIP Co de Phone Number [address] [address] * (ABNORMAL) C-Reactive Protein (09/30/2024 11:47 AM EDT) C REACTIVE PROTEIN 7.3(H) 0.0 - 4.0 mg/L [facility] Blood 09/30/2024 11:4 7 AM EDT 09/30/2024 12:[address] [facility] LAB BLOOD ORDERABLES Final R esult [address] [address] * Iron and iron binding capacity (09/30/2024 11:47 AM EDT) IRON 80 30 - 160 ug/dL [facility] IRON BINDING CAPACITY 229 228 - 428 ug/dL [facility] TRANSFERRIN SATURAT. 35 15 - 50 % [facility] Blood 09/30/2024 11:4 7 AM EDT 09/30/2024 12:01 PM EDT [facility] Klein PA-C LAB BLOOD ORDERABLES Final R esult Performing Organization Address City/[facility]/ZIP Co de Phone Number [address] [address] * (ABNORMAL) Ferritin (09/30/2024 11:47 AM EDT) FERRITIN 365(H) 13 - 150 ug/L [facility] Blood 09/30/2024 11:4 7 AM EDT 09/30/2024 12:01 PM EDT [facility] Latoya PA-C LAB BLOOD ORDERABLES Final R esult Performing Organization Address City/[facility]/ZIP Co de Phone Number [address] [address] documented in this encounter Visit Diagnoses Diagnosis Iron deficiency anemia, unspecified iron deficiency anemia type S/P colectomy Other postprocedural status C. difficile colitis documented in this encounter Additional Health Concerns Assessment Noted Time PHQ-2 Depression Total Score: 0 12/14/19 24 1:10 PM EST documented as of this encounter Care Teams Agronomy Specialist Relationship Specialty Start Date End Date Shawn Omer MD [address] [place] [address] [email or web address] PCP - General Internal Medicine 03/18/14 Kal An MD [address] [place] [address] [employer] Endocrinology 09/02/17 Shawn Omer MD [address] [place] [address] Insurance Assigned Provider 05/17/23 Laya Sandoval MD [address] [place] [address] Endocrinology 05/24/19 Delaney Soriano NP [address] [place] [address] Cardiology 05/24/19 Toby Nelson MD [address] [place] [address] [place] [address] Hospitalist 12/10/19 documented as of this encounter Additional Source Comments The information contained in this document represents components of the legal health record. It is not the complete legal health record.[facility]
--- OUTSIDE RECORDS SUMMARY | 2024-10-01 09:30 | XMS_ITS | Encounter Summary ---
Author Organization [facility] Address [address] [facility] [address] [place] [phone] Phone Care Team Providers Care Rivet Sorter Name Role Phone Shawn Omer MD Primary Care Provider Kal An MD Unavailable Shawn Omer MD Unavailable Laya Sandoval MD Unavailable Delaney Soriano NP Unavailable Toby Nelson MD Unavailable [phone] Reason for Visit * Auth/Cert (Routine) Specialty Diagnoses / Procedures Referred By Contac t Referred To Contact Referral ID Status Reason Start Date Expiration Date Visits Re quested Visits Authorized [id number] 1 1 Encounter Details Date Type Department Care Team (Late st Contact Info) Description 10/01/2024 9:30 AM EDT Home Care Visit [facility] [address] [place] [phone] Jannette Gibbons, SAUD [address], [place] [phone] [email or web address] SN OASIS START OF CARE (SOC) Social History Tobacco Use Types Packs/Day Years [...] Sign Reading Time Taken Comments Blood Pressure 136/70 10/01/2024 11:00 AM EDT Pulse 90 10/01/2024 11:00 AM EDT Temperature 35.8 C (96.4 F) 10/01/2024 11:00 AM EDT Respiratory Rate 18 10/01/2024 11:00 AM EDT Oxygen Saturation 97% 10/01/2024 11:00 AM EDT Inhaled Oxygen Concentration - - Weight - - Height - - Body Mass Index - - documented in this encounter Plan of Treatment Upcoming Encounters Date Type Department Care Team (Late st Contact Info) Description 10/07/2024 10:00 AM EDT Home Care Visit [facility] [address] [place] [phone] Leslie Lo RN [address] [place] [address] 10/08/2024 1:00 AM EDT Home Care Visit [facility] [address] [place] [phone] Jeanette Phillips [address] [place] [address] 10/11/2024 12:30 AM EDT Home Care Visit [facility] [address] [place] [phone] Leslie Lo RN [address] [place] [address] 10/12/2024 2:00 AM EDT Home Care Visit [facility] [address] [place] [address] Jeanette Phillips [address] [place] [address] 10/14/2024 Home Care Visit [facility] [address] [place] [phone] Leslie Lo RN [address] [place] [address] 10/15/2024 1:00 AM EDT Home Care Visit [facility] [address] [place] [address] Jeanette Phillips [address] [place] [address] 10/18/2024 Home Care Visit [facility] [address] [place] [address] Leslie Lo RN [address] [place] [address] 10/19/2024 1:00 AM EDT Home Care Visit [facility] [address] [place] [address] Phillips Jeanette [address] [place] [address] 10/21/2024 Home Care Visit [facility] [address] [place] [address] Leslie Lo, SAUD [address] [place] [address] 10/22/2024 1:00 AM EDT Home Care Visit [facility] [address] [place] [address] [address] [address] 10/25/2024 12:30 AM EDT Home Care Visit [facility] [address] [place] [phone] Leslie Lo, SAUD [address] [place] [address] 10/26/2024 2:00 AM EDT Home Care Visit [facility] [address] [place] [address] Jacqueline Jeanette [address] [place] [address] 10/28/2024 Home Care Visit [facility] [address] [place] [address] Leslie Lo, SAUD [address] [place] [address] 10/29/2024 1:00 AM EDT Home Care Visit [facility] [address] [place] [address] Jeanette Phillips [address] [place] [address] 11/01/2024 2:00 AM EDT Home Care Visit [facility] [address] [place] [address] Leslie Lo RN [address] [place] [address] 11/02/2024 2:00 AM EDT Home Care Visit [facility] [address] [place] [address] Jeanette Phillips [address] [place] [address] 11/04/2024 Home Care Visit [facility] [address] [place] [address] Leslie Lo RN [address] [place] [address] 11/05/2024 1:00 AM EDT Home Care Visit [facility] [address] [place] [address] Jeanette Phillips [address] [place] [address] 11/08/2024 1:30 AM EDT Home Care Visit [facility] [address] [place] [address] Leslie Lo RN [address] [place] [address] 11/09/2024 2:00 AM EDT Home Care Visit [facility] [address] [place] [address] Phillips, Jeanette[address] [address] 11/11/2024 12:30 AM EDT Home Care Visit [facility] [address] [place] [phone] Leslie Lo RN [address] [place] [address] 11/12/2024 1:00 AM EDT Home Care Visit [facility] [address] [place] [phone] Jeanette Phillips [address] [place] [address] 11/15/2024 1:30 AM EDT Home Care Visit [facility] [address] [place] [phone] Leslie Lo RN [address] [place] [address] 11/15/2024 9:00 AM EDT Office Visit [facility] [address] [phone] Suki Altman PA-C [address] [place] [address] 11/16/2024 2:00 AM EDT Home Care Visit [facility] [address] [place] [phone] Jeanette Phillips [address] [place] [address] 11/18/2024 Home Care Visit [facility] [address] [place] [phone] Leslie Lo RN [address] [place] [address] 11/19/2024 1:00 AM EDT [facility] [address] [place] [phone] Jacqueline Jeanette [address] [place] [address] 11/22/2024 Home [facility] Visit [facility] [address] [place] [address] Leslie Lo RN [address] [place] [address] 11/23/2024 2:00 AM EDT Home [facility] [address] [place] [phone] Jacqueline [address] [address] 11/25/2024 Appointment [facility] [address] [place] [phone] Leslie Lo, SAUD [address] [place] [address] 11/26/2024 1:00 AM EDT Home Care Visit [facility] [address] [place] [phone] Phillips Jaenette [address] [place] [address] 12/22/2024 9:30 AM EST Office Visit [facility] [address] [place] [address] Shawn Omer MD [address] [place] [address] 03/14/2025 8:20 AM EST Office Visit [facility] Endocrinology [address] [facility] KATHERINE Miller [phone] Laya Sandoval MD [address] [place] [phone] documented as of this encounter Visit Diagnoses Not on filedocumented in this encounter Additional Health Concerns Assessment Noted Time PHQ-2 Depression Total Score: 0 12/14/19 24 1:10 PM EST documented as of this encounter Home Health Visit - Care Plan Visit Details Visit Type -SN OASIS START O F CARE (SOC) Discipline -Fci Problems Problem Description Start Date Status Goals Interve ntions HH - Ostomy Management Disciplines: Fci 10/01/2024 Active 1 goal linked to scheduled/document ed intervention 4 goal interventions scheduled/document ed in this visit HH - Infection - Actual or Risk of Disciplines: All Active Home Health Disciplines 10/01/2024 Active 1 goal linked to scheduled/document ed intervention 2 goal interventions scheduled/document ed in this visit HH - Community Resources - Lack of Knowledge/Access Disciplines: All Active Home Health Disciplines 10/01/2024 Active 1 goal linked to scheduled/document ed intervention 3 goal interventions scheduled/document ed in this visit HH - Falls - Risk of Disciplines: All Active Home Health Disciplines 10/01/2024 Active 1 goal linked to scheduled/document ed intervention 2 goal interventions scheduled/document ed in this visit HH - Standard of Care Disciplines: All Active Home Health Disciplines 10/01/2024 Active 1 goal linked to scheduled/document ed intervention 9 goal interventions scheduled/document ed in this visit HH - Pain Disciplines: All Active Home Health Disciplines 10/01/2024 Active 1 goal linked to scheduled/document ed intervention 2 goal interventions scheduled/document ed in this visit HH - Telehealth/Virtua l Care Disciplines: All Active Home Health Disciplines 10/01/2024 Active 1 goal linked to scheduled/document ed intervention 1 goal intervention scheduled/document ed in this visit HH - Medication Management Disciplines: All Active Home Health Disciplines 10/01/2024 Active 1 goal linked to scheduled/document ed intervention 2 goal interventions scheduled/document ed in this visit HH - Health Maintenance Disciplines: All Active Home Health Disciplines 10/01/2024 Active 1 goal linked to scheduled/document ed intervention 3 goal interventions scheduled/document ed in this visit HH - Focus of Care and Teaching Disciplines: All Active Home Health Disciplines w/RD 10/01/2024 Active 1 goal linked to scheduled/document ed intervention 1 goal intervention scheduled/document ed in this visit HH - Advance Care Planning Disciplines: All Active Home Health Disciplines 10/01/2024 Active 1 goal linked to scheduled/document ed intervention 1 goal intervention scheduled/document ed in this visit HH - Emergency Planning - Knowledge of Disciplines: All Active Home Health Disciplines 10/01/2024 Active 1 goal linked to scheduled/document ed intervention 3 goal interventions scheduled/document ed in this visit Goals Goal Associated Problem Outcome Goal Met? Visit Notes HH - Demonstrate/verbalize management of ostomy care and knowledge of complications HH - Ostomy Management No HH - Patient will have no new infection; any new infection that occurs will be identified and treated promptly; existing infection will resolve without complication Description: Patient and caregiver(s) will demonstrate understanding of infection prevention, monitoring, and treatment as appropriate HH - Infection - Actual or Risk of No HH - Demonstrate/verbalize knowledge of community resources HH - Community Resources - Lack of Knowledge/Access No HH - Knowledge and management of fall prevention measures. HH - Falls - Risk of No HH - Achieve care management for a safe to home/community discharge from homecare HH - Standard of Care No HH - Frequency of pain interfering with patient's activity or movement will improve with activity or movement by discharge. Description: Pain will be managed over the course of care. Patient's acceptable level of pain is 1 - pain that doesn't interfere. HH - Pain No HH - Telehealth visits along with in-person home visits will be utilized when appropriate to achieve optimal wellness and home safety Description: Telehealth visits along with in-person home visits will be utilized when appropriate to achieve optimal wellness and home safety related to assessment, demonstration, observation, teaching and training. HH - Telehealth/Virtual Care No HH - Safe medication management, avoid unnecessary harm related to medication errors and/or interactions HH - Medication Management No HH - Patient preferences will be utilized to achieve optimal wellness and home safety. HH - Health Maintenance No HH - Communication and collaboration to achieve patient goals HH - Focus of Care and Teaching No HH - Verbalize awareness of Advance Care Planning. HH - Advance Care Planning No HH - Knowledge of options for managing care in the event of an emergency related situation. - Emergency Planning - Knowledge of No Interventions Intervention Associated Problem/Goal Status Variance Visit Notes - Ostomy management (type & device): Description: OSTOMY TYPE: ileostomy DEVICE PRODUCT NAME AND SIZE: one piece cut-to-size ordered per patient request Problem: - Ostomy Management Goal:HH - Demonstrate/verbaliz e management of ostomy care and knowledge of complications Completed - Ostomy assessment: Stoma (measurement, appearance, flat/retracted, mucocutaneous separation, dorita stoma irritation or breakdown) and signs of complications Description: Assess nutritional status, risk of body image issues, emotional needs, and coping skills. Problem: - Ostomy Management Goal:HH - Demonstrate/verbaliz e management of ostomy care and knowledge of complications Completed - I/E Ostomy management: Ostomy and Stoma care, signs of complications, nutrition/hydration needs, and coping strategies Problem: - Ostomy Management Goal:HH - Demonstrate/verbaliz e management of ostomy care and knowledge of complications Completed - Ostomy care Description: Specific Treatment: Teach stoma powder/skin prep for irritated peristomal skin. Teach appliance change with use of dana's seal and barrier strips for additional support. Consider belt if continues with leaking. Change Device/Appliance every 3-4days and PRN if leaking or lack of integrity. Problem: - Ostomy Management Goal:HH - Demonstrate/verbaliz e management of ostomy care and knowledge of complications Completed - I/E infection Description: management of existing infection and s/s of infection Problem: - Infection - Actual or Risk of Goal:HH - Patient will have no new infection; any new infection that occurs will be identified and treated promptly; existing infection will resolve without complication Completed - Assess infection risk and s/s Problem: - Infection - Actual or Risk of Goal: - Patient will have no new infection; any new infection that occurs will be identified and treated promptly; existing infection will resolve without complication Completed - Assess need for community resources Problem: - Community Resources - Lack of Knowledge/Access Goal:HH - Demonstrate/verbaliz e knowledge of community resources Completed - Assist in accessing community resources Problem: - Community Resources - Lack of Knowledge/Access Goal:HH - Demonstrate/verbaliz e knowledge of community resources Completed - I/E community resources Problem: - Community Resources - Lack of Knowledge/Access Goal: - Demonstrate/verbaliz e knowledge of community resources Completed HH - Complete fall risk assessment scale Problem: - Falls - Risk of Goal: - Knowledge and management of fall prevention measures. Completed HH - I/E fall prevention measures Description: diagnosis/age related changes/prior history of falls: symptoms and side effects of illness/injury/history of falls placing patient at increased risk for falls. may include management of dizziness/orthostasis, environmental hazards: modification of environment to include clear walkways, secure animals, and move frequently used items within reach, use of equipment, impaired functional mobility: supervision for mobility/activity, appropriate footwear and as indicated safe use of assistive device(s), incontinence: management of incontinence to include safe toileting, need for absorbent garments, address urgency/frequency and poly pharmacy: side effects of medications placing a patient at high risk for a fall Problem: - Falls - Risk of Goal: - Knowledge and management of fall prevention measures. Completed - Assess vital signs, pulse oximetry, pain, and as indicated, orthostatic vital signs Description: use agency-specific parameters Problem: - Standard of Care Goal: - Achieve care management for a safe to home/community discharge from homecare Completed - Assess skin integrity Problem: - Standard of Care Goal:HH - Achieve care management for a safe to home/community discharge from homecare Completed HH - Ordered skin care (non-wound) Description: LOCATION: rash to inner thighs FREQUENCY: bid CARE DETAILS: ketoconazole 10/01 awaiting orders for rash to back Problem: - Standard of Care Goal:HH - Achieve care management for a safe to home/community discharge from homecare Completed HH - I/E management of skin integrity and non-wound impairment Description: edema management, s/s of pressure injury, pressure reduction, and injury prevention measures and skin care Problem: - Standard of Care Goal: - Achieve care management for a safe to home/community discharge from homecare Completed - Assess safety needs of patient (other than falls) Problem: - Standard of Care Goal:HH - Achieve care management for a safe to home/community discharge from homecare Completed - I/E discharge plan Problem: - Standard of Care Goal:HH - Achieve care management for a safe to home/community discharge from homecare Completed HH - Complete Quirino scale at SOC and weekly Problem:HH - Standard of Care Goal:HH - Achieve care management for a safe to home/community discharge from homecare Completed HH - Assess weight Problem:HH - Standard of Care Goal:HH - Achieve care management for a safe to home/community discharge from homecare Completed HH - Diet: Description: low residue/ostomy diet Problem:HH - Standard of Care Goal:HH - Achieve care management for a safe to home/community discharge from homecare Completed HH - Assess pain Problem:HH - Pain Goal:HH - Frequency of pain interfering with patient's activity or movement will improve with activity or movement by discharge. Completed HH - I/E pain management Problem:HH - Pain Goal:HH - Frequency of pain interfering with patient's activity or movement will improve with activity or movement by discharge. Completed HH - Assess the patient's access/technology, monitoring device availability, cognitive, mental, physical ability, and willingness to effectively participate in telehealth care Problem:HH - Telehealth/Virtual Care Goal: - Telehealth visits along with in-person home visits will be utilized when appropriate to achieve optimal wellness and home safety Completed The patient has: 1. Reliable Wi-Fi/Internet access: Yes 2. Patient [place]: Active 3. An active e-mail address: Yes 4. The following device(s): Computer 5. The following monitoring device(s): No Devices and N/A, has no devices 6. The patient has the cognitive, mental, and physical ability to participate in Telehealth Care. 7. The patient is willing to participate. HH - I/E medication management: administration, purpose, dosages, preparation, setup, scheduling, side effects, food/drug interactions, and potential complications as indicated Description: Update patient's copy of medication list as needed. Problem:HH - Medication Management Goal:HH - Safe medication management, avoid unnecessary harm related to medication errors and/or interactions Completed HH - Complete medication review every visit and medication reconciliation as indicated. Pharmacy information: Description: [address] Problem: - Medication Management Goal:HH - Safe medication management, avoid unnecessary harm related to medication errors and/or interactions Completed HH - Assess the patient's care preferences, goals, and strengths, the assessment of the patient's mental, psychosocial, and cognitive status were completed, and the following were identified: Description: call prior to visit management of medications, managing symptoms and be treated at home and avoid emergency room visits and/or hospitalizations adequate cognition and housing stability Problem:HH - Health Maintenance Goal:HH - Patient preferences will be utilized to achieve optimal wellness and home safety. Completed HH - Assess immunizations Description: UTD Problem:HH - Health Maintenance Goal:HH - Patient preferences will be utilized to achieve optimal wellness and home safety. Completed HH - I/E immunizations Description: UTD Problem:HH - Health Maintenance Goal:HH - Patient preferences will be utilized to achieve optimal wellness and home safety. Completed HH - Focus of care, teaching completed and plan for next visit Problem:HH - Focus of Care and Teaching Goal:HH - Communication and collaboration to achieve patient goals Completed Patient referred to homecare services after hospitalization in [place] r/t colitis/sepsis, s/p lap colectomy and new ileostomy. Dc home with abx x2. Patient to er previous month for c diff and treated with vanco. Returned to ER while at vacation home with diarhhea/ams. Patient also with electrolyte derangement during stay and KOBY, treated with IVF/supplements. Patient is a retired nurse with PMH including DM, PE (on xarelto), cardiomyopathy, CHF, hypthyroidism, Lives with attentive Claudio in senior community. Patient walking with new walker/assist. CONTOUR PATH TAPE MILL OPERATOR added to assist with personal care. Patient alert and oriented. Afebrile. VSS. Lungs clear, breathing easy. Denies pain. Ostomy leaking on arrival and with liquid stool in bag. Teaching provided re diet to manage/thicken/slow stool output.Minimal supplies provided on dc form hospital. Appliance changed. Peristomal skin with some irritation, no stoma powder in home. Skin prep applied. Eakins ring from [facility] applied and 2-piece from hospital applied. Discussion with patient and decision for one-piece appliance made, ordered. Stoma moist/red. Instructed in monitoring stoma and reporting changes, measuring prior to appliance change. Instructed in monitoring for leaks. No protocol for immodium on dc, will address at appt with GI this afternoon. Instructed on importance of hydration. Patient with post-op wound vac to left of ostomy. No orders re removal in place. Call to surgeon to question, spoke to nurse and questioned if any immodium protocol (none) or instructions for wound vac removal (none given, surgeon not back until Friday). Patient iwth plans to see local surgeon on Friday. Patient iwht new urinary incontinence. PCP called during soc visit and plan to check uraine specimen at f/u appt. Patient with fungal rash to inner thighs- has ketoconaole to treat. Patient also with patches of red rash to back/buttocks. Pic took and MD notified, question if also fungal in nature though presentation unusual. Awaiting return call from PCP office. Patient with no pain or itching. Meds reconciled with PCP office and medbox corrected/instructed. BLE with 2+ pitting edema. Saw cardiology yesterday and plan to continue on current lasix, anticipating fluid to come off slowly at home. Elevation reinforced. Patient takes weight daily r/t hx of chf. PCP alerted to soc/poc Identified skills to be provided and taught: cv/cp/skin/medicaiton/ gi/ostomy assess/teach The identified person that we will be teaching is patient/ Other disciplines ordered to assist patient in meeting goals: pt/ot/photo journalist Anticipated number of visits to meet goals: 10snv HH - I/E advance directive information. Written information provided to the patient and caregiver, as indicated. The patient has: Description: other: HCP Problem:HH - Advance Care Planning Goal:HH - Verbalize awareness of Advance Care Planning. Completed HH - I/E management of care in an urgent or emergency (ER) situation: When to call your Home Care Team/911, ER plans, supplies, evacuation, when to contact local ER officials and how to stay informed Problem:HH - Emergency Planning - Knowledge of Goal:HH - Knowledge of options for managing care in the event of an emergency related situation. Completed HH - Emergency planning assessment: the emergency plan, supplies needed, emergency contact numbers and an evacuation plan were reviewed Description: Patient and Caregiver is/are knowledgeable of emergency plans. Problem:HH - Emergency Planning - Knowledge of Goal:HH - Knowledge of options for managing care in the event of an emergency related situation. Completed HH - Establish an individualized emergency plan: Description: Evacuation Plan is: stay home self-care Priority Medical Needs are: N/A A triage code has been assigned. A triage code and emergency plan will be reassessed for continued accuracy. Specific risks based on location: extreme cold/snow, extreme heat, loss of utilities and severe storms An emergency supply list has been provided. Problem:HH - Emergency Planning - Knowledge of Goal:HH - Knowledge of options for managing care in the event of an emergency related situation. Completed documented in this encounter Care Teams Rivet Sorter Relationship Specialty Start Date End Date Shawn Omer MD [address] [place] [address] PCP - General Internal Medicine 03/18/14 Kal An MD [address] [place] [address] [facility]ur Endocrinology 09/02/17 Shawn Omer MD [address] [place] [address] Insurance Assigned Provider 05/17/23 Laya Sandoval MD [address] [address] Endocrinology 05/24/19 Delaney Soriano NP [address] [place] [address] Cardiology 05/24/19 Toby Nelson MD [address] [facility] [place] [address] Hospitalist 12/10/19 documented as of this encounter Additional Source Comments The information contained in this document represents components of the legal health record. It is not the complete legal health record.[facility]
--- OUTSIDE RECORDS SUMMARY | 2024-10-04 07:11 | XMS_ITS | Encounter Summary ---
Author Organization [facility] Address [address] [facility] [address] [place] [address] Phone Care Team Providers Care Copper Flotation Operator Name Role Phone Shawn Omer MD Primary Care Provider Kal An MD Unavailable Shawn Omer MD Unavailable [phone] Laya Sandoval MD Unavailable Delaney Soriano NP Unavailable Toby Nelson MD Unavailable [phone] Encounter Details Date Type Department Care Team (Latest Contact Info) Description 10/04/2024 7:11 AM EDT - 10/04/2024 11:59 PM EDT Hospital Encounter [facility] [address] [place] [address] Snadra Klein PA-C [address] [place] [address] [email or web address] Discharge Disposition: Home or Self Care Social [...] To groin rash 45 g 3 5 ketoconazole 2 % creamIndications:Ra sh Apply topically 2 (two) times a day. Apply twice a day to rash. 60 g 2 5 levothyroxine (SYNTHROID, LEVOTHROID) 88 MCG tabletIndications:A cquired hypothyroidism [The details of the medication are not available because there are pending changes by a home health clinician.] 90 tablet 1 5 magnesium oxide (MAG-OX) 400 mg (241.3 mg elemental) tablet Take 400 mg by mouth daily. 5 Medication-Free Text as directed Dx: NIDDM/Polyneuropat [...] home health clinician.] 6 mL 1 5 nitrofurantoin (MACROBID) 100 MG capsuleIndications: Leukocytosis, unspecified type,Acute cystitis without hematuria Take 1 capsule (100 mg total) by mouth 2 (two) times a day for 5 days. 10 capsule 5 10/10/19 25 nortriptyline (PAMELOR) 50 MG capsuleIndications: Cyclical vomiting TAKE 1 CAPSULE NIGHTLY AT BEDTIME 90 capsule 3 5 nystatin (MYCOSTATIN) 100,000 units/mL suspension Take 200,000 Units by mouth 4 (four) times a day. 5 omeprazole (PRILOSEC) 20 MG capsuleIndications: Gastroesophageal [...] by mouth daily. 90 tablet 3 5 sacubitriL-valsarta n (ENTRESTO) 24-26 mg per tablet Take 1 tablet by mouth 2 (two) times a day. 60 tablet 1 5 simvastatin (ZOCOR) 20 MG tabletIndications:H yperlipidemia Take 1 tablet (20 mg total) by mouth nightly at bedtime. 90 tablet 3 5 sodium,potassium phosphates (PHOS-NAK ORAL) Take 1 packet by mouth daily. 5 08/28/20 25 triamcinolone acetonide 0.1 % cream daily as needed (for skin issues). sacubitriL-valsarta n (ENTRESTO) 49-51 mg per tablet Take by mouth 2 (two) times a day. 10/06/19 documented as of this encounter Plan of Treatment Upcoming Encounters Date Type Department Care Team (Late st Contact Info) Description 10/07/2024 10:00 AM EDT [facility] [address] [place] [phone] Leslie Lo RN [address] [place] [address] [email or web address] 10/08/2024 1:00 AM EDT [facility] [address] [place] [phone] Jeanette Phillips [address] [place] [phone] [email or web address] 10/11/2024 12:30 AM EDT Home Care Visit [facility] [address] [place] [phone] Leslie Lo RN [address] [place] [address] [email or web address] 10/12/2024 2:00 AM EDT Home [facility] Visit [facility] [address] [place] [phone] Jeanette Phillips [address] [place] [address] [email or web address] 10/14/2024 Home Care Visit [facility] [address] [place] [phone] Leslie Lo RN [address] [place] [address] [email or web address] 10/15/2024 1:00 AM EDT Home Care Visit [facility] [address] [place] [address] Jeanette Phillips [address] [place] [address] [email or web address] 10/18/2024 Home Care Visit [facility] [address] [place] [address] Leslie Lo RN [address] [place] [address] [email or web address] 10/19/2024 1:00 AM EDT Home Care Visit [facility] [address] [place] [address] Jeanette Phillips [address] [place] [phone] [email or web address] 10/21/2024 Home Care Visit [facility] [address] [place] [phone] Leslie Lo RN [address] [place] [address] [email or web address] 10/22/2024 1:00 AM EDT Home Care Visit [facility] [address] [place] [phone] Jeanette Phillips [address] [place] [phone] [email or web address] 10/25/2024 12:30 AM EDT Home Care Visit [facility] [address] [place] [phone] Leslie Lo, SAUD [address] [place] [address] [email or web address] 10/26/2024 2:00 AM EDT Home Care Visit [facility] [address] [place] [address] Jeanette Phillips [address] [place] [phone] [email or web address] 10/28/2024 Home Care Visit [facility] [address] [place] [address] Leslie Lo RN [address] [place] [address] [email or web address] 10/29/2024 1:00 AM EDT Home Care Visit [facility] [address] [place] [phone] Jay Jay Phillips[address] [address] [email or web address] 11/01/2024 2:00 AM EDT Home Care Visit [facility] [address] [place] [phone] Leslie Lo RN [address] [place] [address] [email or web address] 11/02/2024 2:00 AM EDT Home Care Visit [facility] [address] [place] [phone] Jay Jay Phillips[address] [address] [email or web address] 11/04/2024 Home Care Visit [facility] [address] [place] [address] Lesile Lo, SAUD [address] [place] [address] [email or web address] 11/05/2024 1:00 AM EDT Home Care Visit [facility] [address] [place] [address] Jeanette Phillips [address] [place] [phone] [email or web address] 11/08/2024 1:30 AM EDT Home Care Visit [facility] [address] [place] [phone] Leslie Lo RN [address] [place] [address] [email or web address] 11/09/2024 2:00 AM EDT Home Care Visit [facility] [address] [place] [phone] Jeanette Phillips [address] [place] [phone] [email or web address] 11/11/2024 12:30 AM EDT Home Care Visit [facility] [address] [place] [phone] Leslie Lo RN [address] [place] [address] [email or web address] 11/12/2024 1:00 AM EDT Home Care Visit [facility] [address] [place] [phone] Jeanette Phillips [address] [place] [phone] [email or web address] 11/15/2024 1:30 AM EDT Home Care Visit [facility] [address] [place] [phone] Leslie Lo RN [address] [place] [phone] [email or web address] 11/15/2024 9:00 AM EDT Office Visit [facility] [phone] Suki Altman PA-C [address] [place] [address] 11/16/2024 2:00 AM EDT Home Care Visit [facility] [address] [place] [address] Jeanette Phillips [address] [place] [address] [email or web address] 11/18/2024 Home Care Visit [facility] [address] [place] [address] Leslie Lo RN [address] [place] [address] [email or web address] 11/19/2024 1:00 AM EDT Home Care Visit [facility] [address] [place] [address] Jeanette Phillips [address] [place] [phone] [email or web address] 11/22/2024 Home Care Visit [facility] [address] [place] [address] Leslie Lo RN [address] [place] [address] [email or web address] 11/23/2024 2:00 AM EDT Home Care Visit [facility] [address] [place] [address] Jeanette Phillips [address] [place] [address] [email or web address] 11/25/2024 Appointment [facility] [address] [place] [address] Leslie Lo, SAUD [address] [place] [address] [email or web address] 11/26/2024 1:00 AM EDT Home Care Visit [facility] [address] [place] [address] Jeanette Phillips [address] [place] [address] 12/22/2024 9:30 AM EST Office Visit [facility] Internal Medicine [address] [place] [address] Shawn Omer MD [address] [place] [address] [email or web address] 03/14/2025 8:20 AM EST Office Visit [facility] Endocrinology [place] [address] [place] [phone] Laya Sandoval MD [address] [place] [address] [email or web address] Scheduled Orders Name Type Priority Associated Diagnoses Orde r Schedule Urinalysis w/reflex Urine Culture Lab Routine Iron deficiency anemia, unspecified iron deficiency anemia type Leukocytosis, unspecified type S/P colectomy C. 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 difficile colitis Leukocytosis, unspecified type FOLATE Routine 10/04/2024 7:22 AM EDT Iron deficiency anemia, unspecified iron deficiency anemia type VITAMIN B12 Routine 10/04/2024 7:22 AM EDT Iron deficiency anemia, unspecified iron deficiency anemia type documented in this encounter Results * (ABNORMAL) Urine sediment (10/04/2024 12:33 PM EDT) WBC 5-10(A) NONE SEEN /hpf [facility] RBC 0-2(A) NONE SEEN /hpf [facility] URINE EPITHELIAL 0-4(A) NONE SEEN [facility] MUCUS Trace(A) NONE SEEN /hpf [facility] BACTERIA Trace(A) NONE SEEN /hpf [facility] YEAST Trace(A) NONE SEEN /hpf [facility] 10/04/2024 12:3 3 PM EDT 10/04/2024 12:53 PM EDT us Sandra Klein PA-C URINE ORDERABLES Final Resul t [facility] [address] [place] [address] * (ABNORMAL) Urinalysis w/reflex Urine Culture (10/04/2024 12:33 PM EDT) COLOR Yellow Yellow [facility] CLARITY Clear [facility] GLUCOSE Negative Negative [facility] BILI Negative Negative [facility] KETONES Negative Negative [facility] SPECIFIC GRAVITY 1.025 1.005 - 1.030 [facility] BLOOD Negative Negative [facility] PH 6.0 5.0 - 8.0 [facility] Protein-UA Negative Negative [facility] NITRITE Positive(A) Negative [facility] Leukocyte esterase, ur Trace(A) Negative [facility] Urine (Urine) 10/04/2024 12: 33 PM EDT 10/04/2024 12:53 PM EDT us Sandra Klein PA-C URINE ORDERABLES Final Resul t Performing Organization Address City/State/[facility] Co de Phone Number [facility] [address] [place] [address] * (ABNORMAL) CBC and differential (10/04/2024 7:22 AM EDT) WBC 19.81(H) 4.00 - 11.00 K/uL [facility] RBC 4.29 4.00 - 5.20 M/uL [facility] HGB 12.1 12.0 - 16.0 g/dL [facility] HCT 39.5 36.0 - 46.0 % [facility] PLT 380 150 - 450 K/uL [facility] MCV 92.1 80.0 - 100.0 fL [facility] MCH 28.2 27.0 - 31.0 pg [facility] MCHC 30.6(L) 32.0 - 36.0 g/dL [facility] RDW 15.3(H) 11.5 - 14.5 % [facility] MPV 9.7 8.4 - 12.0 fL [facility] NRBC 0.00 0.00 /100 WBCs [facility] ABSOLUTE NRBC 0.00 0.00 K/uL [facility] DIFF METHOD Manual [facility] TOTAL CELLS COUNTED 100 [facility] NEUTS 75.0 48.0 - 76.0 % [facility] BANDS 3.0 0 - 10 % [facility] LYMPHS 13.0(L) 18.0 - 41.0 % [facility] MONOS 5.0 4.0 - 11.0 % [facility] EOS 1.0 0.0 - 5.0 % [facility] MYELOS 2.0(H) 0 % [facility] METAS 1.0(H) 0 % [facility] ABSOLUTE NEUTS 15.45(H) 1.92 - 7.60 K/uL [facility] ABSOLUTE LYMPHS 2.58 0.72 - 4.10 K/uL [facility] ABSOLUTE MONOS 0.99 0.16 - 1.10 K/uL [facility] ABSOLUTE EOS 0.20 0.00 - 0.50 K/uL [facility] ABSOLUTE MYELOS 0.40 K/uL [facility] ABSOLUTE METAS 0.20 K/uL [facility] Blood 10/04/2024 7:22 AM EDT 10/04/2024 7:30 AM EDT [facility] LAB BLOOD ORDERABLES Final R esult [address] [phone] * Folate (10/04/2024 7:22 AM EDT) FOLIC ACID 8.2 4.2 - 19.9 ng/mL [facility] Blood 10/04/2024 7:22 AM EDT 10/04/2024 7:30 AM EDT [facility] LAB BLOOD ORDERABLES Final R esult [address] [address] * Vitamin B12 (10/04/2024 7:22 AM EDT) VITAMIN B12 1,107 232 - 1,245 pg/mL [facility] Blood 10/04/2024 7:22 AM EDT 10/04/2024 7:30 AM EDT Sandra Klein PA-C LAB BLOOD ORDERABLES Final R esult Performing Organization Address City/State/[facility] Co de Phone Number [address] [address] documented in this encounter Visit Diagnoses Diagnosis Acute cystitis without hematuria- Primary Iron deficiency anemia, unspecified iron deficiency anemia type Leukocytosis, unspecified type S/P colectomy Other postprocedural status C. difficile colitis Bruising Contusion of unspecified site Mixed stress and urge urinary incontinence Mixed incontinence urge and stress (male)(female) Chronic heart failure, unspecified heart failure type Cardiomyopathy, unspecified type Adenoma of left adrenal gland Long-term current use of injectable noninsulin antidiabetic medication nursing home current use of oral hypoglycemic drug Abdominal migraine, not intractable Cyclical vomiting Persistent vomiting Dysautonomia Unspecified disorder of autonomic nervous system Routine general medical examination at a health care facility Obstructive sleep apnea syndrome Obstructive sleep apnea (adult) (pediatric) Pure hypercholesterolemia Ischemic colitis History of depression Personal history of other mental disorder 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 Secondary diabetes mellitus with neurological manifestations, not stated as uncontrolled, or unspecified Vitamin D deficiency Primary hypertension Unspecified essential hypertension History of pulmonary embolism Personal history of venous thrombosis and embolism Essential hypertension Unspecified essential hypertension Diarrhea, unspecified type Type 2 diabetes mellitus with peripheral neuropathy Acquired hypothyroidism Unspecified hypothyroidism Vasovagal syncope Syncope and collapse Syncope and collapse Gastroesophageal reflux disease, unspecified whether esophagitis present documented in this encounter Additional Health Concerns Assessment Noted Time PHQ-2 Depression Total Score: 0 12/14/19 24 1:10 PM EST documented as of this encounter Care Teams Copper Flotation Operator Relationship Specialty Start Date End Date Shawn Omer MD [address] [place] [phone] PCP - General Internal Medicine 03/18/14 Kal An MD [address] [place] [address] Windows Server Engineer Endocrinology 09/02/17 Shawn Omer MD [address] [place] [address] Insurance Assigned Provider 05/17/23 Laya Sandoval MD [address] [address] Endocrinology 05/24/19 Delaney Soriano NP [address] [place] [address] Cardiology 05/24/19 [place] [address] [place] [address] [place] [address] Hospitalist 12/10/19 documented as of this encounter Additional Source Comments The information contained in this document represents components of the legal health record. It is not the complete legal health record.[facility]
--- OUTSIDE RECORDS SUMMARY | 2024-10-04 11:30 | XMS_ITS | Encounter Summary ---
Author Organization [facility] Address [address] [facility] [address] [place] [phone] Phone Care Team Providers Care Automotive Mechanic Name Role Phone Shawn Omer MD Primary Care Provider Kal An MD Unavailable Shawn Omer MD Unavailable Laya Sandoval MD Unavailable [phone] Delaney Soriano NP Unavailable Toby Nelson MD Unavailable [phone] Reason for Visit * Auth/Cert (Routine) Specialty Diagnoses / Procedures Referred By Contac t Referred To Contact Referral ID Status Reason Start Date Expiration Date Visits Re quested Visits Authorized [id number] 1 1 Encounter Details Date Type Department Care Team (Late st Contact Info) Description 10/04/2024 11:30 AM EDT Home [facility] [address] [place] [address] Betty Holloway [address] [place] [address] [email or web address] REAL ESTATE ACCOUNT EXECUTIVE HOME VISIT Social History Tobacco Use Types Packs/Day Years [...] Sign Reading Time Taken Comments Blood Pressure 117/69 10/04/2024 11:41 AM EDT Pulse 88 10/04/2024 11:41 AM EDT Temperature 36.2 C (97.2 F) 10/04/2024 11:41 AM EDT Respiratory Rate - - Oxygen Saturation 94% 10/04/2024 11:41 AM EDT Inhaled Oxygen Concentration - - Weight - - Height - - Body Mass Index - - documented in this encounter Plan of Treatment Upcoming Encounters Date Type Department Care Team (Late st Contact Info) Description 10/07/2024 10:00 AM EDT Home [facility] [address] [place] [phone] Leslie Lo RN [address] [place] [address] 10/08/2024 1:00 AM EDT Home [facility] [address] [place] [address] Jeanette Phillips [address] [place] [address] 10/11/2024 12:30 AM EDT Home [facility] Visit [facility] [address] [place] [address] Leslie Lo RN [address] [place] [address] 10/12/2024 2:00 AM EDT Home [facility] [address] [place] [address] PhillipsJay Jay oliva[address] [address] 10/14/2024 Home Care Visit [facility] [address] [place] [address] Leslie Lo RN [address] [place] [address] 10/15/2024 1:00 AM EDT Home [facility] [address] [place] [address] PhillipsJay Jay olivah [address] [place] [address] 10/18/2024 Home Care Visit [facility] [address] [place] [address] Leslie Lo, SAUD [address] [place] [address] 10/19/2024 1:00 AM EDT Home Care Visit [facility] [address] [place] [address] Jacqueline Jeanette [address] [place] [address] 10/21/2024 Home Care Visit [facility] [address] [place] [address] Leslie Lo RN [address] [place] [address] 10/22/2024 1:00 AM EDT Home [facility] [address] [place] [address] Phillips Jeanette[address] [address] 10/25/2024 12:30 AM EDT Home [facility] [address] [place] [phone] Leslie Lo RN [address] [place] [address] 10/26/2024 2:00 AM EDT Home [facility] [address] [place] [phone] Jeanette Phillips [address] [place] [address] 10/28/2024 Home Care Visit [facility] [address] [place] [address] Leslie Lo RN [address] [place] [address] 10/29/2024 1:00 AM EDT Home Care [facility] [address] [place] [address] Phillips, Jeanette[address] [address] 11/01/2024 2:00 AM EDT Home Care Visit [facility] [address] [place] [address] Leslie Lo, SAUD [address] [place] [address] 11/02/2024 2:00 AM EDT Home [facility] [address] [place] [address] Jacqueline Jean[address] [address] 11/04/2024 Home Care Visit [facility] [address] [place] [phone] Leslie Lo RN [address] [place] [address] 11/05/2024 1:00 AM EDT Home [facility] [address] [place] [phone] Phillips Jeanette[address] [address] 11/08/2024 1:30 AM EDT Home Care [facility] [address] [place] [address] Leslie Lo, SAUD [address] [place] [address] 11/09/2024 2:00 AM EDT Home [facility] [address] [place] [address] Jacqueline Jeanette[address] [address] 11/11/2024 12:30 AM EDT Home [facility] [address] [place] [address] Leslie Lo RN [address] [place] [address] 11/12/2024 1:00 AM EDT [facility] [address] [place] [phone] Jeanette Phillips [address] [place] [address] 11/15/2024 1:30 AM EDT Home [facility] [address] [place] [phone] Leslie Lo RN [address] [place] [address] 11/15/2024 9:00 AM EDT Office Visit [facility] Endocrinology [address] [phone] Suki Altman PA-C [address] [place] [address] 11/16/2024 2:00 AM EDT Home Care Visit [facility] [address] [place] [address] Jeanette Phillips [address] [place] [address] 11/18/2024 Home Care Visit [facility] [address] [place] [address] Leslie Lo RN [address] [place] [address] 11/19/2024 1:00 AM EDT Home Care Visit [facility] [address] [place] [address] Phillips Jeanette [address] [place] [address] 11/22/2024 Home Care Visit [facility] [address] [place] [address] Leslie Lo RN [address] [place] [address] 11/23/2024 2:00 AM EDT Home Care Visit [facility] [address] [place] [address] Jacqueline Jeanette[address] [address] 11/25/2024 Appointment [facility] [address] [place] [address] Leslie Lo RN [address] [place] [address] 11/26/2024 1:00 AM EDT Home Care Visit [facility] [address] [place] [phone] Jacqueline Jeanette[address] [address] 12/22/2024 9:30 AM EST Office Visit [facility] Internal Medicine [address] [place] [address] Shawn Omer MD [address] [place] [address] 03/14/2025 8:20 AM EST Office Visit [facility] Endocrinology [place] [address] [place] [address] Laya Sandoval MD [address] [place] [address] [address] [place] [address] [email or web address] documented as of this encounter Visit Diagnoses Not on filedocumented in this encounter Additional Health Concerns Assessment Noted Time PHQ-2 Depression Total Score: 0 12/14/19 24 1:10 PM EST documented as of this encounter Home Health Visit - Care Plan Visit Details Visit Type -REAL ESTATE ACCOUNT EXECUTIVE HOME VISIT Discipline -Mcc Problems Problem Description Start Date Status Goals Interve ntions HH - Standard of Care Disciplines: All [...] Outcome Goal Met? Visit Notes HH - Achieve care management for a safe to home/community discharge from homecare HH - Standard of Care No HH - Telehealth visits along with [...] HH - Medication Management No HH - Communication and collaboration to achieve patient goals HH - Focus of Care and Teaching No HH - Knowledge of options for managing care in the event of an emergency related situation. HH - Emergency Planning - Knowledge of No Interventions Intervention Associated Problem/Goal Status Variance Visit Notes HH - Assess vital signs, pulse oximetry, pain, and as indicated, orthostatic vital signs Description: use agency-specific parameters Problem: - Standard of Care Goal:HH - Achieve care management for a safe to home/community discharge from homecare Completed HH - Assess skin integrity Problem: - Standard of Care Goal:HH - Achieve care management for a safe to home/community discharge from homecare Completed HH - Assess the patient's access/technology, monitoring device availability, cognitive, mental, physical ability, and willingness to effectively participate in telehealth care Problem: - Telehealth/Virtual Care Goal: - Telehealth visits along with in-person home visits will be utilized when appropriate to achieve optimal wellness and home safety Completed - I/E medication management: administration, purpose, dosages, preparation, setup, scheduling, side effects, food/drug interactions, and potential complications as indicated Description: Update patient's copy of medication list as needed. Problem: - Medication Management Goal: - Safe medication management, avoid unnecessary harm related to medication errors and/or interactions Completed - Complete medication review every visit and medication reconciliation as indicated. Pharmacy information: Description: [address] Problem: - Medication Management Goal: - Safe medication management, avoid unnecessary harm related to medication errors and/or interactions Completed - Focus of care, teaching completed and plan for next visit Problem: - Focus of Care and Teaching Goal: - Communication and collaboration to achieve patient goals Completed Primary Clinical Focus this Visit & Instruction Provided: Patient alert and oriented, VSS lungs clear, no c/o pain at this time. Patient continues on ABT until 10/06. Supplies not received from [employer]. Patient refused Appliance change. Patient with fungal rash to inner thighs and buttocks continues ketoconazole to treat. No reports of dizziness and recent falls Will continue to monitor and maintain safety Instruction Provided to: patient and Response to Instruction/Teaching : Is partially able to teach back topics as evidenced by verbal recall. Plan for Next Visit Specific Focus & Education Needed: Ileostomy care, Skin assessment, CVP assessment New Orders: none Updated Discharge Plan: When needs are met - I/E management of care in an urgent or emergency (ER) situation: When to call your Home Care Team/[facility], ER plans, supplies, evacuation, when to contact [...] Completed documented in this encounter Care Teams Automotive Mechanic Relationship Specialty Start Date End Date Shawn Omer MD [address] [place] [address] PCP - General Internal Medicine 03/18/14 Kal An MD [address] [place] [address] Records Assistant Endocrinology 09/02/17 Shawn Omer MD [address] [place] [address] Insurance Assigned Provider 05/17/23 Laya Sandoval MD [address] [address] Endocrinology 05/24/19 Delaney Soriano NP [address] [place] [address] Cardiology 05/24/19 Toby Nelson MD [address] [facility] [place] [address] Hospitalist 12/10/19 documented as of this encounter Additional Source Comments The information contained in this document represents components of the legal health record. It is not the complete legal health record.[facility]
--- NOTE | 2024-10-06 09:21 | MHC.OFFVIS ---
Vital Signs 10/06/24 09:34 Height 5 ft 4 in Weight 151 lb BMI 25.9 BP 110/55 L Blood Pressure Location Rt brachial Position Sitting Pulse 100 Intake Visit Reasons: s/p ileostomy in [place] Intake Note: Patient here s/p exploratory laparotomy, ileostomy on 09-24-2024. Patient c/o: reports ostomy working well. Denies abdominal pain. Surgery: Gerber Knight Lead Web Application Developer Required: No Accompanied by: spouse Claudio Allergies atenolol Allergy (Intermediate, Verified 10/06/24 09:27) hives Beta-Blockers (Beta-Adrenergic Bloc (BETA-BLOCKERS (BETA-ADRENERGIC BLOC) Allergy (Intermediate, Verified 10/06/24 09:27) HIVES vancomycin (VANCOMYCIN) Adverse Reaction (Intermediate, Verified 10/06/24 09:28) NAUSEA & VOMITING Medication List - Last Reconciled 10/06/24 by Joey De Oliveira MD blood sugar diagnostic ([employer] Verio test strips) use as directed to test once daily cholecalciferol (vitamin D3) 25 mcg PO DAILY cholestyramine (with sugar) 4 gram 4 grams PO SUTUTHSA@0900 empagliflozin (Jardiance) 10 mg PO DAILY 90 days ferrous sulfate 325 mg PO DAILY fluoxetine 10 mg PO BEDTIME furosemide 20 mg PO DAILY galcanezumab-gnlm (Emgality) 120 mg subcut Q30D hyoscyamine sulfate 0.125 mg sublingual DAILY PRN levothyroxine 112 mcg PO MOTUWETHFRSA@0630 metformin ER 1,000 mg PO BID metoprolol succinate ER 25 mg PO DAILY metronidazole 500 mg PO TID nortriptyline 50 mg PO BEDTIME omeprazole 20 mg PO DAILY ondansetron 8 mg PO Q8H PRN rimegepant (Nurtec ODT) 75 mg PO Q OTHER DAY PRN rivaroxaban (Xarelto) 20 mg PO DAILY@1700 sacubitril-valsartan 49-51 mg (Entresto) 1 tab PO BID simvastatin 20 mg PO BEDTIME tirzepatide (Mounjaro) mg subcut HPI HPI s/p ileostomy in [place]: Details: 74-year-old female referred to me for a new ileostomy. 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 She was says she was discharged on postop day 5. She says that her ileostomy has been functioning well. She says she feels well overall. She denies any significant pain. She has good oral intake. [facility] Medical History (Updated 10/06/24 @ 10:01 by Joey De Oliveira MD) Ileostomy in place Cataract (lens) fragments in eye following cataract surgery Hypothyroidism HLD (hyperlipidemia) HTN (hypertension) Ischemic bowel disease Bundle branch block, left Diabetes Abdominal migraine Pulmonary embolism Surgical History History of colectomy (09/24/24) Status post biventricular cardiac pacemaker insertion LAP-BAND surgery status History of partial hysterectomy Family History Father CVD (cardiovascular disease) Diabetes Mother Diabetes Mitral valve prolapse Social History Alcohol intake: never Patient Tobacco Use Status: Never used Tobacco service: No Current occupational status: retired Review of Systems Const Denies chills and Denies fever(s) Card Denies chest pain, Denies dyspnea and Denies dyspnea on exertion Resp Denies cough, Denies dyspnea and Denies dyspnea on exertion GI Details: Has ileostomy with good output Denies hematochezia and Denies change in bowel habits Denies hematuria Musc Denies back pain and Denies limited range of motion Neuro Denies focal weakness and Denies convulsions Psych Denies depression and Denies mood swings Physical Exam Vital Signs: Last Vital Signs Pulse 100 10/06/24 09:34 BP 110/55 L 10/06/24 09:34 BMI result Body Mass Index 25.9 Const Other: Looks well, ambulating without difficulty General: comfortable and no acute distress Resp Effort & Inspection: normal respiratory effort Cardio Rate: regular rate GI Other: Ileostomy functioning well, midline incision well healed Palpation (GI): Soft to palpation, not firm and no guarding Assessment & Plan Assessment & Plan (1) Ileostomy in place: Code(s): Z93.2 - Ileostomy status Category: Medical Plan: She is status post subtotal colectomy and end ileostomy in [place] because of C diff colitis with toxic megacolon. She seemed to be doing very well postop. Her incision is well healed. I removed all her skin tashia Her ileostomy is functioning well. I will see her again in the office next month to see how she is doing. I will follow her down the line as she is interested in reversal of her ileostomy. I have set her up with Joaquim our nurse in the office for help with stoma care. She also has a history of intestinal migraines in the past. Coding Level of Care Code New Pt Level 3 (97446) Diagnoses Ileostomy in place Z93.2
[2024-10-06 09:34] VITALS: BP 110/55; PULSE 100; BMI 25.9
--- OUTSIDE RECORDS SUMMARY | 2024-10-06 09:50 | XMS_ITS | Encounter Summary ---
Author Organization [facility] Address [address] [employer] [facility] [address] [place] [address] Phone Care Team Providers Care Manager Private Name Role Phone Shawn Omer MD Primary Care Provider [phone] Kal An MD Unavailable [phone] Shawn Omer MD Unavailable [phone] Laya Sandoval MD Unavailable Delaney Soriano NP Unavailable Toby Nelson MD Unavailable [phone] Encounter Details Date Type Department Care Team (Late st Contact Info) Description 08/25/2024 Telephone [facility] [address] [place], [place] [phone] Shawn Omer MD [address] [place] [address] [email or web address] Social History Tobacco Use Types Packs/Day Years Used Date Smoking Tobacco: Never Passive Smoke Exposure: Never Smokeless Tobacco: Never Alcohol Use Standard Drinks/Week Comments Never 0 (1 standard drink = 0.6 oz pur e alcohol) Education Answer Date Recorded Are you interested [...] Care Visit [facility] [address] [place] [address] Leslie Lo, SAUD [address] [place] [address] 10/08/2024 1:00 AM EDT Home Care Visit [facility] [address] [place], [place] [phone] Jeanette Phillips [address] [place] [address] 10/11/2024 12:30 AM EDT Home Care Visit [facility] [address] [place], [place] [phone] Leslie Lo RN [address] [place] [address] 10/12/2024 2:00 AM EDT Home Care Visit [facility] [address] [place] [address] Jeanette Phillips [address] [place] [address] 10/14/2024 Home Care Visit [facility] [address] [place] [address] Leslie Lo RN [address] [place] [address] 10/15/2024 1:00 AM EDT Home Care Visit [facility] [address] [place] [address] Jeanette Phillips [address] [place] [address] 10/18/2024 Home Care Visit [facility] [address] [place] [address] Leslie Lo RN [address] [place] [address] 10/19/2024 1:00 AM EDT Home Care Visit [facility] [address] [place] [address] Jeanette Phillips [address] [place] [address] 10/21/2024 Home Care Visit [facility] [address] [place] [address] Leslie Lo RN [address] [place] [address] 10/22/2024 1:00 AM EDT Home Care Visit [facility] [address] [place] [address] Phillips, Jeanette[address] [address] 10/25/2024 12:30 AM EDT Home Care Visit [facility] [address] [place] [address] Leslie Lo RN [address] [place] [address] 10/26/2024 2:00 AM EDT Home Care Visit [facility] [address] [place] [address] PhillipsJay Jay oliva[address] [address] 10/28/2024 Home Care Visit [facility] [address] [place] [phone] Leslie Lo, SAUD [address] [place] [address] 10/29/2024 1:00 AM EDT Home Care Visit [facility] [address] [place] [phone] PhillipsJay Jay oliva[address] [address] 11/01/2024 2:00 AM EDT Home Care Visit [facility] [address] [place] [address] Leslie Lo, SAUD [address] [place] [address] 11/02/2024 2:00 AM EDT Home Care Visit [facility] [address] [place] [address] Jacqu[address] Jean[address] [address] 11/04/2024 Home Care Visit [facility] [address] [place] [address] Leslie Lo RN [address] [place] [address] 11/05/2024 1:00 AM EDT Home Care Visit [facility] [address] [place] [address] Jeanette Phillips [address] [place] [address] 11/08/2024 1:30 AM EDT Home Care Visit [facility] [address] [place] [address] Leslie Lo RN [address] [place] [address] 11/09/2024 2:00 AM EDT Home Care Visit [facility] [address] [place] [address] Jeanette Phillips [address] [place] [address] 11/11/2024 12:30 AM EDT Home [facility] Visit [facility] [address] [place] [address] Leslie Lo RN [address] [place] [address] 11/12/2024 1:00 AM EDT Home [facility] Visit [facility] [address] [place] [address] Jeanette Phillips [address] [place] [address] 11/15/2024 1:30 AM EDT Home Care Visit [facility] [address] [place] [address] Leslie Lo RN [address] [place] [address] 11/15/2024 9:00 AM EDT Office Visit [facility] Endocrinology [address] [address] Suki Altman PA-C [address] [place] [address] 11/16/2024 2:00 AM EDT Home Care Visit [facility] [address] [place] [address] Jeanette Phillips [address] [place] [address] 11/18/2024 Home Care Visit [facility] [address] [place] [address] Leslie Lo RN [address] [place] [address] 11/19/2024 1:00 AM EDT Home Care Visit [facility] [address] [place] [address] Jeanette Phillips [address] [place] [address] 11/22/2024 Home Care Visit [facility] [address] [place] [address] Leslie Lo RN [address] [place] [address] 11/23/2024 2:00 AM EDT Home Care Visit [facility] [address] [place] [address] Jeanette Phillips [address] [place] [address] 11/25/2024 Appointment [facility] [address] [place] [address] Leslie Lo RN [address] [place] [address] 11/26/2024 1:00 AM EDT Home Care Visit [facility] [address] [place] [address] Jay Jay Phillipsh [address] [place] [address] 12/22/2024 9:30 AM EST Office Visit [facility] Internal Medicine [address] [place] [address] Shawn Omer MD [address] [place] [address] 03/14/2025 8:20 AM EST Office Visit [facility] Endocrinology [place] [address] [place] [phone] Laya Sandoval MD [address] [place] [address] documented as of this encounter Visit Diagnoses Not on filedocumented in this encounter Additional Health Concerns Assessment Noted Time PHQ-2 Depression Total Score: 0 12/14/19 24 1:10 PM EST documented as of this encounter Care Teams Manager Private Relationship Specialty Start Date End Date Shawn Omer MD [address] [place], [place] [phone] PCP - General Internal Medicine 03/18/14 Kal An MD [address] [place] [address] Sex Offender Treatment Professional Endocrinology 09/02/17 Shawn Omer MD [address] [place] [address] [email or web address] Insurance Assigned Provider 05/17/23 Laya Sandoval MD [address] [address] Endocrinology 05/24/19 Delaney Soriano NP [address] [place] [address] Cardiology 05/24/19 Toby Nelson MD [address] [facility] [place] [address] Hospitalist 12/10/19 documented as of this encounter Additional Source Comments The information contained in this document represents components of the legal health record. It is not the complete legal health record.[facility]
--- OUTSIDE RECORDS SUMMARY | 2024-10-06 09:50 | XMS_ITS | Encounter Summary ---
Author Organization [facility] Address [address] [address] Phone Care Team Providers Care Heating Plant Superintendent Name Role Phone Shawn Omer MD Primary Care Provider [phone] Brianna Rodriguez TEMPLATE LAYOUT WORKER Unavailable Unavailable Shawn Omer MD Unavailable Markell Beltre MD Unavailable [phone] Nohemi Fuentes TEMPLATE LAYOUT WORKER Unavailable Leann Simons TEMPLATE LAYOUT WORKER Unavailable [phone] Kal An MD Unavailable Shawn Omer MD Unavailable [phone] Laya Sandoval MD Unavailable Delaney Soriano NP Unavailable Toby Nelson MD Unavailable [phone] Encounter Details Date Type Department Care Team (Late st Contact Info) Description 02/12/2019 Procedure Pass [facility] Endoscopy Admitting Dept Virtual Department [address] [place] [address] Social History Tobacco Use Types Packs/Day Years Used Date Smoking Tobacco: Never Smokeless Tobacco: Never Alcohol Use Standard Drinks/Week Comments No 0 (1 standard drink = 0.6 oz pur e alcohol) Comments Unknown Sex and Gender Information Value Date Recorded Sex Assigned at Not on file Legal Sex Female 8:48 AM EST Gender Identity Not on file Sexual Orientation Not on file documented as of this encounter Plan of Treatment Upcoming Encounters Date Type Department Care Team (Late st Contact Info) Description 10/07/2024 10:00 AM EDT Home Care Visit [facility] [address] [place] [phone] Leslie Lo RN [address] [place] [address] 10/08/2024 1:00 AM EDT Home [facility] Visit [facility] [address] [place] [phone] Jeanette Phillips [address] [place] [address] 10/11/2024 12:30 AM EDT Home Care Visit [facility] [address] [place] [phone] Leslie Lo RN [address] [place] [address] 10/12/2024 2:00 AM EDT Home Care Visit [facility] [address] [place] [phone] Jeanette Phillips [address] [place] [address] 10/14/2024 Home Care Visit [facility] [address] [place] [phone] Leslie Lo RN [address] [place] [address] 10/15/2024 1:00 AM EDT Home Care Visit [facility] [address] [place] [phone] Phillips, Jeanette[address] [address] 10/18/2024 Home Care Visit [facility] [address] [place] [address] Leslie Lo, SAUD [address] [place] [address] 10/19/2024 1:00 AM EDT Home [facility] Visit [facility] [address] [place] [address] Phillips [address] [address] 10/21/2024 Home Care Visit [facility] [address] [place] [phone] Leslie Lo RN [address] [place] [address] 10/22/2024 1:00 AM EDT Home Care Visit [facility] [address] [place] [phone] PhillipsJay Jay oliva[address] [address] 10/25/2024 12:30 AM EDT Home Care Visit [facility] [address] [place] [address] Leslie Lo, SAUD [address] [place] [address] 10/26/2024 2:00 AM EDT Home Care Visit [facility] [address] [place] [address] [address] Jean[address] [address] 10/28/2024 Home [facility] Visit [facility] [address] [place] [address] Leslie Lo RN [address] [place] [address] 10/29/2024 1:00 AM EDT Home [facility] Visit [facility] [address] [place] [address] Jeanette Phillips [address] [place] [address] 11/01/2024 2:00 AM EDT Home [facility] Visit [facility] [address] [place] [address] Leslie Lo RN [address] [place] [address] 11/02/2024 2:00 AM EDT Home [facility] [address] [place] [address] Jeanette Phillips [address] [place] [address] 11/04/2024 Home Care Visit [facility] [address] [place] [address] Leslie Lo RN [address] [place] [address] 11/05/2024 1:00 AM EDT Home Care Visit [facility] [address] [place] [address] Jeanette Phillips [address] [place] [address] 11/08/2024 1:30 AM EDT Home [facility] Visit [facility] [address] [place] [address] Leslie Lo RN [address] [place] [address] 11/09/2024 2:00 AM EDT Home Care Visit [facility] [address] [place] [phone] Jeanette Phillips [address] [place] [address] 11/11/2024 12:30 AM EDT Home Care Visit [facility] [address] [place] [phone] Leslie Lo RN [address] [place] [address] 11/12/2024 1:00 AM EDT Home Care Visit [facility] [address] [place] [phone] Jeanette Phillips [address] [place] [address] 11/15/2024 1:30 AM EDT Home Care Visit [facility] [address] [place] [phone] Leslie Lo RN [address] [place] [address] 11/15/2024 9:00 AM EDT Office Visit [facility] Endocrinology [address] [phone] Suki Altman PA-C [address] [place] [address] 11/16/2024 2:00 AM EDT Home Care Visit [facility] [address] [place] [phone] Pacheco Phillipsyah [address] [place] [address] 11/18/2024 [facility] [address] [place] [address] Leslie Lo, RN [address] [place] [address] 11/19/2024 1:00 AM EDT Home Care Visit [facility] [address] [place] [phone] PhillipsJeanette oliva [address] [place] [address] 11/22/2024 Home Care Visit [facility] [address] [place] [phone] Leslie Lo, SAUD [address] [place] [address] 11/23/2024 2:00 AM EDT [facility] [address] [place] [phone] Jay Jay Phillips[address] [address] 11/25/2024 Appointment [facility] [address] [place] [address] Leslie Lo, SAUD [address] [place] [address] 11/26/2024 1:00 AM EDT Home Care Visit [facility] [address] [place] [address] Phillips Jeanette[address] [address] 12/22/2024 9:30 AM EST Office Visit [facility] Internal Medicine [address] [place], [place] [phone] Shawn Omer MD [address] [place] [address] [email or web address] 03/14/2025 8:20 AM EST Office Visit [facility] Endocrinology [place] [address] [place] [phone] Laya Sandoval MD [address] [place] [address] [email or web address] documented as of this encounter Visit Diagnoses Not on filedocumented in this encounter Additional Health Concerns Infection Onset Date Last Indicated Resolved Time 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 close contact 12/31/2019 12/31/2019 01/14/2020 1:23 AM EST Assessment Noted Time PHQ-2 Depression Total Score: 2 12/02/19 8:37 AM EDT documented as of this encounter Care Teams Heating Plant Superintendent Relationship Specialty Start Date End Date Shawn Omer MD [address] [place] [address] PCP - General Internal Medicine 03/18/14 Brianna Rodriguez TEMPLATE LAYOUT WORKER [address] [place] [address] Historical LMR Provider 11/25/1605/11 Shawn Omer MD [address] [place] [address] Historical LMR Provider 11/25/16 05/23/19 Markell Beltre MD [address] [place] [address] [email or web address] Historical LMR Provider 11/25/16 Nohemi Fuentes NP [address] [address] Historical LMR Provider 11/25/16 Leann Simons NP [address] [place] [address] [email or web address] Historical LMR Provider 11/25/16 05/23/19 Kal An MD [address] [place] [address] Associate Accountant Endocrinology 09/02/17 Shawn Omer MD [address] [place] [address] Insurance Assigned Provider 05/17/23 Laya Sandoval MD [address] [address] Endocrinology 05/24/19 Delaney Soriano NP [address] [place] [address] Cardiology 05/24/19 Toby Nelson MD [address] [place] [address] [place] [address] Hospitalist 12/10/19 documented as of this encounter Additional Source Comments The information contained in this document represents components of the legal health record. It is not the complete legal health record.[facility]
--- OUTSIDE RECORDS SUMMARY | 2024-10-06 09:50 | XMS_ITS | Encounter Summary ---
Author Organization [facility] Address [address] [facility] [address] [place] [address] Phone Care Team Providers Care Workday Director Name Role Phone Shawn Omer MD Primary Care Provider [phone] Kal An MD Unavailable Shawn Omer MD Unavailable [phone] Laya Sandoval MD Unavailable Delaney Soriano NP Unavailable Toby Nelson MD Unavailable [phone] Reason for Visit * Reason Onset Date Comments Appointment 09/29/2024 tcm Encounter Details Date Type Department Care Team ([facility] st Contact Info) Description 09/29/2024 Telephone [facility] Medicine [address] [place], [place] [phone] Shawn Omer MD [address] [place] [address] [email or web address] Appointment (tcm) Social History Tobacco Use Types Packs/Day Years [...] on file documented as of this encounter Progress Notes * Sandra Klein PA-C - 09/30/2024 10:38 AM EDT Noted, we will discuss this at her visit. * Jacqueline Eugene - 09/30/2024 8:27 AM EDT Roxi called saying she is having a hard time getting home Pt needs [facility] PT and OT. Requesting PCP to address at [facility] today Central Support Chief Controller (Please do not reply to this user; this inbox is not monitored.) Thank you. * Jana Chavez - 09/29/2024 1:22 PM EDT Spoke to patient and she has been scheduled for a TCM tomorrow 09/30 with Joe. Called Roxi at [facility] requested discharge notes to be faxed to our office KATHLEEN . Needs med rec. * Annette Tiwari - 09/29/2024 12:37 PM EDT Roxi called back stating pt discharged and to call her personally.Please contact and advise Central Support Chief Controller (Please do not reply to this user; this inbox is not monitored.) Thank you. * Sona Banks - 09/29/2024 12:21 PM EDT LVM for Roxi to call back and schedule. * Annette Tiwari - 09/29/2024 9:46 AM EDT Transitional Care Management New Patient: YES/NO: yes Hospitalization Name: [facility] Discharge Date:09/29/24 Reason for Visit+ Diagnosis:clostomy Is the discharge summary in patient chart:YES/NO: yes If not did you inform the patient/patient advocate to fax it to the office: YES/NO: yes Please inform the patient/patient advocate to fax and bring a copy to the appt. Appointment Date: na Is the appt: virtual in person: in person Awareness: Appt need to be schedule with in 2 to 14 calendar days from discharge date Additional Note (if applicable): [facility] CSS Agent (Please do not reply to this user, as this inbox is not monitored. Thank you.) Thank you. documented in this encounter Plan of Treatment Upcoming Encounters Date Type Department Care Team (Late st Contact Info) Description 10/07/2024 10:00 AM EDT [facility] [address] [place] [address] Leslie Lo RN [address] [place] [address] [email or web address] 10/08/[email or web address] 1:00 AM EDT Home [facility] Visit [facility] [address] [place] [address] Jeanette Phillips [address] [place] [address] [email or web address] 10/11/2024 12:30 AM EDT Home [facility] Visit [facility] [address] [place] [address] Leslie Lo RN [address] [place] [address] [email or web address] 10/12/2024 2:00 AM EDT Home [facility] Visit [facility] [address] [place] [address] Jeanette Phillips [address] [place] [address] [email or web address] 10/14/2024 Home Care Visit [facility] [address] [place] [address] Leslie Lo RN [address] [place] [address] [email or web address] 10/15/2024 1:00 AM EDT Home Care Visit [facility] [address] [place] [address] Jeanette Phillips [address] [place] [address] [email or web address] 10/18/2024 Home Care Visit [facility] [address] [place] [address] Leslie Lo RN [address] [place] [address] [email or web address] 10/19/2024 1:00 AM EDT Home Care Visit [facility] [address] [place] [address] Jeanette Phillips [address] [place] [address] [email or web address] 10/21/2024 Home Care Visit [facility] [address] [place] [address] Leslie Lo RN [address] [place] [address] [email or web address] 10/22/2024 1:00 AM EDT Home Care Visit [facility] [address] [place] [phone] [address] [address] [email or web address] 10/25/2024 12:30 AM EDT Home Care Visit [facility] [address] [place] [phone] Leslie Lo RN [address] [place] [address] [email or web address] 10/26/2024 2:00 AM EDT Home Care Visit [facility] [address] [place] [address] Jeanette Phillips [address] [place] [address] [email or web address] 10/28/2024 Home Care Visit [facility] [address] [place] [address] Leslie Lo, SAUD [address] [place] [address] [email or web address] 10/29/2024 1:00 AM EDT Home Care Visit [facility] [address] [place] [address] Phillips Jeanette [address] [place] [address] [email or web address] 11/01/2024 2:00 AM EDT Home Care Visit [facility] [address] [place] [address] Leslie Lo, SAUD [address] [place] [address] [email or web address] 11/02/2024 2:00 AM EDT Home Care Visit [facility] [address] [place] [address] Jay Jay Phillips[address] [address] [email or web address] 11/04/2024 Home Care Visit [facility] [address] [place] [address] Leslie Lo, SAUD [address] [place] [address] [email or web address] 11/05/2024 1:00 AM EDT Home Care Visit [facility] [address] [place] [address] Jeanette Phillips [address] [place] [address] [email or web address] 11/08/2024 1:30 AM EDT Home Care Visit [facility] [address] [place] [address] Leslie Lo, SAUD [address] [place] [address] [email or web address] 11/09/2024 2:00 AM EDT Home Care Visit [facility] [address] [place] [address] Jeanette Phillips [address] [place] [address] [email or web address] 11/11/2024 12:30 AM EDT [facility] [address] [place] [address] Leslie Lo RN [address] [place] [address] [email or web address] 11/12/2024 1:00 AM EDT Home [facility] [address] [place] [address] [address] [address] [email or web address] 11/15/2024 1:30 AM EDT Home [facility] Visit [facility] [address] [place] [address] Leslie Lo RN [address] [place] [address] [email or web address] 11/15/2024 9:00 AM EDT Office Visit [facility] [address] [phone] Suki Altman PA-C [address] [place] [address] [email or web address] 11/16/2024 2:00 AM EDT Home [facility] Visit [facility] [address] [place] [address] [address] Jeanette[address] [address] [email or web address] 11/18/2024 Home Care Visit [facility] [address] [place] [address] Leslie Lo RN [address] [place] [address] [email or web address] 11/19/2024 1:00 AM EDT Home [facility] Visit [facility] [address] [place] [address] Jeanette Phillips [address] [place] [address] 11/22/2024 Home Care Visit [facility] [address] [place] [address] Leslie Lo RN [address] [place] [address] 11/23/2024 2:00 AM EDT Home Care Visit [facility] [address] [place] [address] Jeanette Phillips [address] [place] [address] [email or web address] 11/25/2024 Appointment [facility] [address] [place] [address] Leslie Lo RN [address] [place] [address] 11/26/2024 1:00 AM EDT Home Care Visit [facility] [address] [place] [address] Jeanette Phillips [address] [place] [address] [email or web address] 12/22/2024 9:30 AM EST Office Visit [facility] [place] [facility] [address] [place] [address] Shawn Omer MD [address] [place] [address] 03/14/2025 8:20 AM EST Office Visit [facility] Endocrinology [place] [address] [place] [phone] Laya Sandoval MD [address] [address] documented as of this encounter Visit Diagnoses Not on filedocumented in this encounter Additional Health Concerns Assessment Noted Time PHQ-2 Depression Total Score: 0 12/14/19 24 1:10 PM EST documented as of this encounter Care Teams Workday Director Relationship Specialty Start Date End Date Shawn Omer MD [address] [place] [address] PCP - General Internal Medicine 03/18/14 Kal An MD [address] [place] [address] Document Management Consultant Endocrinology 09/02/17 Shawn Omer MD [address] [place] [address] Insurance Assigned Provider 05/17/23 Laya Sandoval MD [address] [address] Endocrinology 05/24/19 Delaney Soriano NP [address] [place] [address] Cardiology 05/24/19 Toby Nelson MD [address] [facility] [place] [address] Hospitalist 12/10/19 documented as of this encounter Additional Source Comments The information contained in this document represents components of the legal health record. It is not the complete legal health record.[facility]
--- OUTSIDE RECORDS SUMMARY | 2024-10-06 09:51 | XMS_ITS | Encounter Summary ---
Author Organization [facility] Address [address] [facility] [address] [place] [address] Phone Care Team Providers Care Time Buyer Name Role Phone Shawn Omer MD Primary Care Provider [phone] Kal An MD Unavailable Shawn Omer MD Unavailable Laya Sandoval MD Unavailable Delaney Soriano NP Unavailable Toby Nelson MD Unavailable [phone] Encounter Details Date Type Department Care Team (Late Contact Info) Description 06/12/2020 Procedure Pass [facility] Endoscopy Admitting Dept Virtual Department [address] [place] [address] Social History Tobacco Use Types Packs/Day Years Used Date Smoking Tobacco: Never Smokeless Tobacco: Never Alcohol Use Standard Drinks/Week Comments No 0 (1 standard drink = 0.6 oz pur e alcohol) Comments No Sex and Gender Information Value Date Recorded Sex Assigned at Not on file Legal Sex Female 8:48 AM EST Gender Identity Not on file Sexual Orientation Not on file documented as of this encounter Plan of Treatment Upcoming Encounters Date Type Department Care Team (Late Contact Info) Description 10/07/2024 10:00 AM EDT [facility] [address] [place] [address] Leslie Lo, SAUD [address] [place] [address] 10/08/2024 1:00 AM EDT [facility] [address] [place] [address] Jeanette Phillips [address] [place] [address] 10/11/2024 12:30 AM EDT [facility] [address] [place] [address] Leslie Lo RN [address] [place] [address] 10/12/2024 2:00 AM EDT [facility] [address] [place] [address] Jeanette Phillips [address] [place] [address] 10/14/2024 Home [facility] Visit [facility] [address] [place] [address] Leslie Lo RN [address] [place] [address] 10/15/2024 1:00 AM EDT [facility] [address] [place] [address] Jeanette Phillips [address] [place] [address] 10/18/2024 Home [facility] Visit [facility] [address] [place] [address] Leslie Lo RN [address] [place] [address] 10/19/2024 1:00 AM EDT [facility] [address] [place] [address] Jeanette Phillips [address] [place] [address] 10/21/2024 Home [facility] Visit [facility] [address] [place] [address] Leslie Lo, SAUD [address] [place] [address] 10/22/2024 1:00 AM EDT [facility] [address] [place] [phone] [address] [address] 10/25/2024 12:30 AM EDT Home [facility] Visit [facility] [address] [place] [phone] Leslie Lo, SAUD [address] [place] [address] 10/26/2024 2:00 AM EDT [facility] [address] [place] [address] Phillips Jeanette [address] [place] [address] 10/28/2024 Home [facility] Visit [facility] [address] [place] [address] Leslie Lo, SAUD [address] [place] [address] 10/29/2024 1:00 AM EDT [facility] [address] [place] [address] Jeanette Phillips [address] [place] [address] 11/01/2024 2:00 AM EDT [facility] [address] [place] [address] Leslie Lo RN [address] [place] [address] 11/02/2024 2:00 AM EDT [facility] [address] [place] [address] Jeanette Phillips [address] [place] [address] 11/04/2024 Home Care Visit [facility] [address] [place] [address] Leslie Lo RN [address] [place] [address] 11/05/2024 1:00 AM EDT Home [facility] [address] [place] [phone] Jeanette Phillips [address] [place] [address] 11/08/2024 1:30 AM EDT Home [facility] [address] [place] [address] Leslie Lo RN [address] [place] [address] 11/09/2024 2:00 AM EDT [facility] [address] [place] [address] Jeanette Phillips [facility] [address] 11/11/2024 12:30 AM EDT Home [facility] [address] [place] [address] Leslie Lo RN [address] [place] [address] 11/12/2024 1:00 AM EDT [facility] Visit [facility] [address] [place] [phone] Phillips Jeanette [address] [place] [address] 11/15/2024 1:30 AM EDT Home Care Visit [facility] [address] [place] [phone] Leslie Lo RN [address] [place] [address] 11/15/2024 9:00 AM EDT Office Visit [facility] [address] [address] Suki Altman PA-C [address] [place] [address] 11/16/2024 2:00 AM EDT Home Care Visit [facility] [address] [place] [phone] [address] [place] [address] 11/18/2024 Home Care Visit [facility] [address] [place] [phone] Leslie Lo RN [address] [place] [address] [place] [address] 11/19/2024 1:00 AM EDT Home Care Visit [facility] [address] [place] [phone] Jeanette Phillips [address] [place] [address] 11/22/2024 Home Care Visit [facility] [address] [place] [address] Leslie Lo RN [address] [place] [address] 11/23/2024 2:00 AM EDT Home Care Visit [facility] [address] [place] [phone] [address] [address] 11/25/2024 Appointment [facility] [address] [place] [phone] Leslie Lo RN [address] [place] [address] 11/26/2024 1:00 AM EDT Home Care Visit [facility] [address] [place] [phone] PhillipsJeanette oliva [address] [place] [address] 12/22/2024 9:30 AM EST Office Visit [facility] [address] [place] [address] Shawn Omer MD [address] [place] [address] 03/14/2025 8:20 AM EST [facility] Visit [facility] [address] [place] [phone] Laya Sandoval MD [address] [address] documented as of this encounter Visit Diagnoses Not on filedocumented in this encounter Additional Health Concerns Assessment Noted Time PHQ-2 Depression Total Score: 0 04/12/19 21 9:12 AM EST documented as of this encounter Care Teams Time Buyer Relationship Specialty Start Date End Date Shawn Omer MD [address] [place] [address] PCP - General Internal Medicine 03/18/14 Kal An MD [address] [place] [address] Geriatric Nurse Assistant Endocrinology 09/02/17 Shawn Omer MD [address] [place] [address] [email or web address] Insurance Assigned Provider 05/17/23 Laya Sandoval MD [address] [address] Endocrinology 05/24/19 Delaney Soriano NP [address] [place] [address] Cardiology 05/24/19 Toby Nelson MD [address] [facility] [place] [address] Hospitalist 12/10/19 documented as of this encounter Additional Source Comments The information contained in this document represents components of the legal health record. It is not the complete legal health record.[facility]
--- OUTSIDE RECORDS SUMMARY | 2024-10-06 09:51 | XMS_ITS | Patient Health Record ---
Author Organization [facility] Address [address] [place] [address] Care Team Providers Care Double Surface Operator Name Role Phone Shawn Omer MD Primary Care Provider Unavaila ble Black, Sadie Unavailable [phone] Allergies Allergen (clinical drug ingredient) Drug/Non Drug [...] Vaccine Route Administration Date Status Comme nts Influenza Unknown 11/10/2017 Administered Influenza Unknown 12/04/2018 Administered Influenza Unknown 11/08/2019 Administered Influenza Unknown 10/25/2020 Administered Influenza Unknown 10/10/2021 Administered Influenza Unknown 10/11/2022 Administered Influenza Unknown 11/11/2023 Administered COVID-19 Moderna Vaccine Unknown 04/11/2020 Administered COVID-19 Moderna Vaccine Unknown 11/27/2020 Administered First Dose: 04/18/20 Second Dose: 05/09/20 Social History Tobacco Use: Social History Observation [...] Problem Status W/U Status Risk Notes Problem Polyneuropathy due to type 2 diabetes mellitus (142582179) Type 2 diabetes mellitus with diabetic polyneuropathy (E11.42) Active confirmed Vital Signs Blood pressure diastolic 84 mm Hg 09/16/2024 Height 5ft 3in in 09/16/2024 Blood pressure systolic 124 mm Hg 09/16/2024 Weight 151 lbs 09/16/2024 BMI 26.75 kg/m2 09/16/2024 Procedures Procedure Date Ordered Date Performed Result Body Sit e 58875-Rrfh Destruction, 1-14 11/25/2023 N/A 51895-OFAN SKIN LESIONS, OVER 4 11/25/2023 N/A K1016-QEWFHPUJ DYSTROPHIC NAILS ANY # 11/25/2023 N/A 15435-Irow Destruction, 1-14 02/26/2024 N/A 09701-ERDB SKIN LESIONS, OVER 4 02/26/2024 N/A L2785-VKVROODL DYSTROPHIC NAILS ANY # 02/26/2024 N/A 85822-Luer Destruction, 1-14 06/03/2024 N/A 57601-OETU SKIN LESIONS, OVER 4 06/03/2024 N/A B3392-WSJNAMRP DYSTROPHIC NAILS ANY # 06/03/2024 N/A 79787-Jwmz Destruction, 1-14 09/16/2024 N/A 11349-DKFK SKIN LESIONS, OVER 4 09/16/2024 N/A W7697-AWJJHASV DYSTROPHIC NAILS ANY # 09/16/2024 N/A Encounters Encounter Location Date Provider Diagnosis [address] [address] 11/25/2023 Sadie Black Type 2 diabetes mellitus with diabetic polyneuropathy E11.42 ; Other viral warts B07.8 and Pain in left foot M79.[address] [address] 02/26/2024 Sadie Black Type 2 diabetes mellitus with diabetic polyneuropathy E11.42 ; Other hammer toe(s) (acquired), right foot M20.41 ; Other viral warts B07.8 ; Pain in left foot M79.672 and Other hammer toe(s) (acquired), left foot M20.[address] [address] 06/03/2024 Sadie Black Type 2 diabetes mellitus with diabetic polyneuropathy E11.42 ; Other viral warts B07.8 and Pain in left foot M79.[address] [address] 09/16/2024 Sadie Black Type 2 diabetes mellitus [...] Treatment Pending Test Test Name Order Date 04353-ZPKIMSK NAIL, 6 OR MORE 02/24/2013 02056-QWBTEEI NAIL, 6 OR MORE 08/16/2013 10949-USMZRFM NAIL, 6 OR MORE 05/12/2013 17258-Ohev Destruction, 1-14 06/03/2019 94778-Koul Destruction, 1-14 08/30/2019 80943-Qclv Destruction, 1-14 12/06/2019 91843-Btsy Destruction, 1-14 03/09/2020 02695-Xuin Destruction, -14 06/08/2020 42041-Oqqo Destruction, -14 09/11/2020 14921-Istn Destruction, -14 12/21/2020 11697-Makn Destruction, -14 04/16/2021 16470-Jnqr Destruction, -14 08/23/2021 10619-Qetj Destruction, -14 03/04/2022 38855-Dqju Destruction, -14 06/06/2022 71640-Ccpg Destruction, -14 09/19/2022 36859-Yooe Destruction, -14 12/23/2022 21306-Cpgz Destruction, -03/24/2023 86922-Qcaz Destruction, 02-2306/23/2023 17025-Qwkb Destruction, 02-2311/25/2023 57350-Ypmy Destruction, -02/26/2024 23566-Wdfo Destruction, -06/03/2024 33991-Oysa Destruction, 02-2309/16/2024 01125-Oqioqhrt Plate 06/06/2022 79238-Lgxdmhhl Plate 11/26/2021 98089-Yutqvncy Plate 12/21/2020 76411-Bmlganvl Plate 06/08/2020 10886-Jphzsjhl Plate 09/11/2020 23488-Uictlcxj Plate 03/09/2020 26658-Awwjxwvf Plate 05/12/2013 94277-Pdozqgfx Plate 08/16/2013 91750-Jnmpvyfh Plate 02/24/2013 13690-Dlcveenr Plate Each Additional 03/2013 54118-Aypgwoth Plate Each Additional 12/2020 36034-ZLDZ SKIN LESIONS, OVER 4 09/17/19 75478-JPNY SKIN LESIONS, OVER 4 06/04/19 25 11652-PMWR SKIN LESIONS, OVER 4 02/25/19 63745-QCGC SKIN LESIONS, OVER 4 05/10/19 15 71305-IWER SKIN LESIONS, OVER 4 02/14/19 15 83033-YXYD SKIN LESIONS, OVER 4 11/25/19 24 98839-PUQM SKIN LESIONS, OVER 4 06/23/19 24 52626-NXLH SKIN LESIONS, OVER 4 03/24/19 24 06934-TRFW SKIN LESIONS, 2 TO 4 09/20/19 20069-DJKC SKIN LESIONS, 2 TO 4 06/07/19 19195-GCOQ SKIN LESIONS, 2 TO 4 03/04/19 67853-USAY SKIN LESIONS, 2 TO 4 09/12/19 36961-JATC SKIN LESIONS, 2 TO 4 12/22/19 43399-OSZC SKIN LESIONS, 2 TO 4 11/27/19 49448-LHMR SKIN LESIONS, 2 TO 4 08/24/19 22970-ARJM SKIN LESIONS, 2 TO 4 04/17/19 32136-KZBZ SKIN LESIONS, 2 TO 4 02/23/19 48466-BIFX SKIN LESIONS, 2 TO 4 08/25/19 17222-CCME SKIN LESIONS, 2 TO 4 06/09/19 04013-GONK SKIN LESIONS, 2 TO 4 03/09/19 39997-KAQW SKIN LESIONS, 2 TO 4 12/06/19 70675-FIBM SKIN LESIONS, 2 TO 4 08/30/19 66714-ARYB SKIN LESIONS, 2 TO 4 06/03/19 64191-DYAS SKIN LESIONS, 2 TO 4 11/27/19 21998-IQVE SKIN LESIONS, 2 TO 4 03/04/19 15207, H3353-YEKMJ/INJECT, JOINT/BURSA 1 03/16/2012 F5046-XXWIZWLD DYSTROPHIC NAILS ANY # A3631-ZFYMZFLN DYSTROPHIC NAILS ANY # H5496-PPRJDHNX DYSTROPHIC NAILS ANY # H9211-MMLUQLKX DYSTROPHIC NAILS ANY # M6862-RZONFTKE DYSTROPHIC NAILS ANY # T2727-GQLRDMPJ DYSTROPHIC NAILS ANY # Y9747-DHWYPGGZ DYSTROPHIC NAILS ANY # O5424-WCTWGGCX DYSTROPHIC NAILS ANY # Z1146-UQBMENDT DYSTROPHIC NAILS ANY # T5909-HZLVKEJB DYSTROPHIC NAILS ANY # R0427-KJXDARAO DYSTROPHIC NAILS ANY # V2464-TFWPVXXM DYSTROPHIC NAILS ANY # F3267-UHWVMWAX DYSTROPHIC NAILS ANY # F0497-JEVJFFFI DYSTROPHIC NAILS ANY # F2967-YEALWORS DYSTROPHIC NAILS ANY # G9474-XUDGHWKW DYSTROPHIC NAILS ANY # L5709-LAYZYSJM DYSTROPHIC NAILS ANY # R9493-WEYOBCQQ DYSTROPHIC NAILS ANY # R2919-XOQDUPEQ DYSTROPHIC NAILS ANY # Y5136-GKQJEORG DYSTROPHIC NAILS ANY # N3719-DOMQZRDB DYSTROPHIC NAILS ANY # J9673-LLFRGGQP DYSTROPHIC NAILS ANY # U4245-XRBCWETZ DYSTROPHIC NAILS ANY # E0242-XLCWJRIP DYSTROPHIC NAILS ANY # I1747-CBMSOBYZ DYSTROPHIC NAILS ANY # U7644-AVJKNWRY DYSTROPHIC NAILS ANY # X ray : Ankle, right 3V 12/02/2012 Next Appt Details Provider Name:Sadie Jang , 12/16/2024 08:30:00 AM, [address] [place] [address], [phone], Insurance Providers Payer Name Payer Address Payer Phone Subscriber Number Group Number Insured Name Patient Relationship to Insured Coverage Start Date Coverage End Date Medicare National Govt [employer] [address] [facility] [place] [address] [id number] Elsa Rhodes Self - patient is the insured [employer] [address] [place] [address] [phone] [id number] Elsa Rhodes Self - patient is [...] 06/18/23 Colonoscopy 10/20/23 Hospitalization History Reason Date(Month/Year) [place] [facility]: C-diff 09/04/24 [facility]/ Blood Pressure 03/28/21 [facility] - Low blood pressure- fluids replacement 10/31 [facility]- low BP 04/06/20 [facility]- nausea,blo od pressure, vomiting, and [facility] - fell- fractured ankle 09/14/[address] [facility]- Ischemic bowel-4 day stay [address] [facility] - vomiting/diarrhea/dehydration 04/12- 04/16/18 Admitted to [facility]; pulminay emb sosa x 5 days 01/12/14-01/17/14
--- OUTSIDE RECORDS SUMMARY | 2024-10-06 09:51 | XMS_ITS | Encounter Summary ---
Author Organization [facility] Address [address] [place] [address] Care Team Providers Care Senior Clinical Research Associate Name Role Phone Unavailable Primary Care Provider Unavailabl e Encounter Details Date Type Department Care Team (Late st Contact Info) Description 08/23/2024 Lab Requisition [facility] Pathology & Laboratory Medicine - [facility] [address] [place] [address] Outr Resulting Lab, Provider Social History Tobacco [...] Salmonella PCR Negative Negative 08/24/2024 14:47 EDT [facility] Shigella/Enteroin vasive E. coli Negative Negative 08/24/2024 14:47 EDT [facility] HN LAB CAMPYLOBACTER PCR Negative Negative 08/24/2024 14:47 EDT [facility] Shiga Toxin PCR Negative Negative 14:47 EDT [facility] Feces SPECIMEN FROM RECTUM / Unknown 08/23/2024 8:00 EDT 08/23/2024 22:21 EDT us Provider Outr Resulting Lab MICROBIOLOGY - GENER AL ORDERABLES Final Result Performing Organization Address [facility]/ZIP Co de Phone Number [facility] [address] [place] [address] * PARASITE SCREEN, STOOL (08/23/2024 8:00 EDT) Giardia and Cryptosporidium Cryptosporidium Antigen Neg and Giardia Antigen Neg Cryptosporidium Antigen Neg and Giardia Antigen Neg 12:09 EDT [facility] Feces SPECIMEN FROM RECTUM / Unknown 08/23/2024 8:00 EDT 08/23/2024 22:21 EDT us Provider Outr Resulting Lab MICROBIOLOGY - GENER AL ORDERABLES Final Result Performing Organization Address [facility] Co de Phone Number [facility] [address] [place] [address] documented in this encounter Visit Diagnoses Not on filedocumented in this encounter
--- OUTSIDE RECORDS SUMMARY | 2024-10-06 09:51 | XMS_ITS | Encounter Summary ---
Author Organization [facility] Address [address] [facility] [address] [place] [address] Phone Care Team Providers Care Manager Family Name Role Phone Shawn Omer MD Primary Care Provider Brianna Rodriguez ENTERTAINMENT LAWYER Unavailable Unavailable Shawn Omer MD Unavailable [phone] Markell Beltre MD Unavailable Nohemi Fuentes ENTERTAINMENT LAWYER Unavailable [phone] Leann Simons ENTERTAINMENT LAWYER Unavailable [phone] Jie An MD Unavailable Shawn Omer MD Unavailable [phone] Laya Sandoval MD Unavailable Delaney Soriano NP Unavailable Toby Nelson MD Unavailable [phone] Reason for Referral * Outpatient Procedure - Closed Specialty Diagnoses / Procedures Referred By Mary Alice diaz Referred To Contact Radiology Diagnoses Ischemic colitis Autonomic neuropathy Nonsurgical dumping syndrome Procedures NM Gastric Emptying Jie Ramirez MD Phone: tel: fax: [email or web address] Referral ID Status Reason Start Date Expiration Date Visits Re quested Visits Authorized [id number] Closed 05/20/2018 05/20/2019 1 1 Encounter Details Date Type Department Care Team (Latest Contact Info) Description 05/20/2018 Transcribe Orders Virtual Department [address] [place] [address] Jie Ramirez MD [address] [place] [phone] Ischemic colitis (Primary Dx); Autonomic neuropathy; Nonsurgical dumping syndrome Social History Tobacco Use Types Packs/Day Years [...] Care Visit [facility] [address] [place] [address] Leslie Lo, SAUD [address] [place] [address] [email or web address] 10/08/2024 1:00 AM EDT Home Care Visit [facility] [address] [place], [place] [phone] Jeanette Phillips [address] [place] [address] 10/11/2024 12:30 AM EDT Home Care Visit [facility] [address] [place] [address] Leslie Lo RN [address] [place] [address] [email or web address] 10/12/2024 2:00 AM EDT Home Care Visit [facility] [address] [place] [address] Jeanette Phillips [address] [place] [address] [email or web address] 10/14/2024 Home Care Visit [facility] [address] [place] [address] Leslie Lo RN [address] [place] [address] [email or web address] 10/15/2024 1:00 AM EDT Home Care Visit [facility] [address] [place] [address] Jeanette Phillips [address] [place] [address] [email or web address] 10/18/2024 Home Care Visit [facility] [address] [place] [address] Leslie Lo RN [address] [place] [address] [email or web address] 10/19/2024 1:00 AM EDT Home Care Visit [facility] [address] [place] [phone] Jeanette Phillips [address] [place] [address] [email or web address] 10/21/2024 Home Care Visit [facility] [address] [place] [address] Leslie Lo RN [address] [place] [address] [email or web address] 10/22/2024 1:00 AM EDT Home Care Visit [facility] [address] [place] [address] Phillips, Jeanette[address] [address] [email or web address] 10/25/2024 12:30 AM EDT Home Care Visit [facility] [address] [place] [address] Leslie Lo, SAUD [address] [place] [address] [email or web address] 10/26/2024 2:00 AM EDT Home Care Visit [facility] [address] [place] [address] Jacqueline Jeanette[address] [address] [email or web address] 10/28/2024 Home Care Visit [facility] [address] [place] [phone] Leslie Lo RN [address] [place] [address] [email or web address] 10/29/2024 1:00 AM EDT Home Care Visit [facility] [address] [place] [phone] Phillips [address] [address] [email or web address] 11/01/2024 2:00 AM EDT Home Care Visit [facility] [address] [place] [address] Leslie Lo, SAUD [address] [place] [address] [email or web address] 11/02/2024 2:00 AM EDT Home Care [facility] [address] [place] [address] [address] Jeanette[address] [address] 11/04/2024 Home Care Visit [facility] [address] [place] [address] Leslie Lo RN [address] [place] [address] [email or web address] 11/05/2024 1:00 AM EDT Home [facility] Visit [facility] [address] [place] [address] Jeanette Phillips [address] [place] [address] [email or web address] 11/08/2024 1:30 AM EDT Home Care Visit [facility] [address] [place] [address] Leslie Lo RN [address] [place] [address] [email or web address] 11/09/2024 2:00 AM EDT Home [facility] [address] [place] [address] Jeanette Phillips [address] [place] [address] [email or web address] 11/11/2024 12:30 AM EDT Home [facility] [address] [place] [address] Leslie Lo, SAUD [address] [place] [address] [email or web address] 11/12/2024 1:00 AM EDT Home Care Visit [facility] [address] [place] [address] Jeanette Phillips [address] [place] [address] [email or web address] 11/15/2024 1:30 AM EDT Home [facility] Visit [facility] [address] [place] [address] Leslie Lo RN [address] [place] [address] [email or web address] 11/15/2024 9:00 AM EDT Office Visit [facility] Endocrinology [address] [address] Suki Altman PA-C [address] [place] [address] [email or web address] 11/16/2024 2:00 AM EDT Home Care Visit [facility] [address] [place] [phone] Jeanette Phillips [address] [place] [address] [email or web address] 11/18/2024 Home Care Visit [facility] [address] [place] [address] Leslie Lo RN [address] [place] [address] [email or web address] 11/19/2024 1:00 AM EDT Home Care Visit [facility] [address] [place] [phone] Jeanette Phillips [address] [place] [address] [email or web address] 11/22/2024 Home Care Visit [facility] [address] [place] [address] Leslie Lo RN [address] [place] [address] [email or web address] 11/23/2024 2:00 AM EDT Home Care Visit [facility] [address] [place] [address] Jeanette Phillips [address] [place] [address] 11/25/2024 Appointment [facility] [address] [place] [address] Leslie Lo RN [address] [place] [address] 11/26/2024 1:00 AM EDT [facility] [address] [place] [address] Jay Jay Phillipsh [address] [place] [address] 12/22/2024 9:30 AM EST Office Visit [facility] Internal Medicine [address] [place] [address] Shawn Omer MD [address] [place] [address] 03/14/2025 8:20 AM EST Office Visit [facility] Endocrinology [place] [address] [place] [phone] Laya Sandoval MD [address] [place] [address] [email or web address] documented as of this encounter Results * FL UGI SERIES SINGLE CONTRAST (05/27/2018 9:00 AM EDT) Anatomical Region Laterality Modality Abdomen Radiographic Alida ging 05/27/2018 9:07 AM EDT Impressions 05/27/2018 9:12 AM EDT Nonfunctioning gastric lap band. Minimal distal esophageal dysmotility. Small sliding-type hiatal hernia. No esophageal or gastroduodenal mucosal pathology detected. FLUOROSCOPY TIME: 1 min. 58 sec; 73 IMAGES/FRAMES POS - [id number] Narrative 05/27/2018 9:12 AM EDT COMPARISON: 11/20/2017 CT FINDINGS: Preliminary views of the abdomen disclose an unremarkable bowel gas pattern. Gastric lap band is stable in position near the gastroesophageal junction. A standard single contrast study was performed and recorded on digital rapid sequence, spot, and overhead views. Following ingestion of the contrast mixture deglutition was assessed fluoroscopically. No aspiration or cricopharyngeal achalasia were noted. There were occasional tertiary contractions in the distal thoracic esophagus. No spontaneous gastroesophageal reflux was noted during the course of the examination. No esophageal mucosal ulcerations or strictures were identified. A small sliding-type hiatal hernia was elicited during a prone Valsalva maneuver. The lap band did not impede contrast entry into the stomach. The stomach and duodenal cap filled well and were without evidence of intrinsic disease or involvement of or displacement by extrinsic lesions. The remainder of the visualized proximal small bowel was unremarkable. Procedure Note Jie Isaacs MD - 05/27/2018 COMPARISON: 11/20/2017 CT FINDINGS: Preliminary views of the abdomen disclose an unremarkable bowel gaspattern. Gastric lap band is stable in position near the gastroesophagealjunction. A standard single contrast study was performed and recorded ondigital rapid sequence, spot, and overhead views. Following ingestion of the contrast mixture deglutition was assessedfluoroscopically. No aspiration or cricopharyngeal achalasia were noted.There were occasional tertiary contractions in the distal thoracicesophagus. No spontaneous gastroesophageal reflux was noted during thecourse of the examination. No esophageal mucosal ulcerations orstrictures were identified. A small sliding-type hiatal hernia waselicited during a prone Valsalva maneuver. The lap band did not impede contrast entry into the stomach. The stomachand duodenal cap filled well and were without evidence of intrinsicdisease or involvement of or displacement by extrinsic lesions. Theremainder of the visualized proximal small bowel was unremarkable. IMPRESSION: Nonfunctioning gastric lap band. Minimal distal esophageal dysmotility.Small sliding-type hiatal hernia. No esophageal or gastroduodenal mucosalpathology detected. FLUOROSCOPY TIME: 1 min. 58 sec; 73 IMAGES/FRAMES POS - [id number] Jie Ramirez MD IMG [facility] Final Result * NM GASTRIC EMPTYING SOLID PHASE (05/26/2018 2:31 PM EDT) Anatomical Region Laterality Modality Abdomen, Pelvis Nuclear Medicine 05/26/2018 3:04 PM EDT Impressions 05/26/2018 3:06 PM EDT Rapid gastric emptying at the 2 hour time point. This is consistent with gastric dumping. No findings of gastroparesis are seen. S/S: Right lower abdominal pain, bleeding, history of lap band surgery, gastric dumping POS - [id number] Narrative 05/26/2018 3:06 PM EDT The patient is given an oral meal of 1.0 mCi of Tc99m labeled sulfur colloid with egg whites, toast, jam and water. Evaluation of gastric emptying over four hours is obtained. At one hour there is 54.6% residual activity in the stomach which is within the normal range. At two hours there is 4.9% residual activity in the stomach which is below the normal range. At four hours there is 3.6% residual activity in the stomach which is within the normal range. No obvious gastroesophageal reflux is seen. NORMAL RANGE One hour 37-90% Two hours 30-60% Four hours 0-10% Procedure Note Dinesh Page MD - 05/26/2018 The patient is given an oral meal of 1.0 mCi of Tc99m labeled sulfurcolloid with egg whites, toast, jam and water. Evaluation of gastricemptying over four hours is obtained. At one hour there is 54.6% residual activity in the stomach which iswithin the normal range. At two hours there is 4.9% residual activity in the stomach which is belowthe normal range. At four hours there is 3.6% residual activity in the stomach which iswithin the normal range. No obvious gastroesophageal reflux is seen. NORMAL RANGE One hour 37-90% Two hours 30-60% Four hours 0-10% IMPRESSION: Rapid gastric emptying at the 2 hour time point. This is consistent withgastric dumping. No findings of gastroparesis are seen. S/S: Right lower abdominal pain, bleeding, history of lap band surgery,gastric dumping POS - [id number] Jie Ramirez MD IMG [facility] Final Result documented in this encounter Visit Diagnoses Diagnosis Ischemic colitis- Primary Autonomic neuropathy Unspecified disorder of autonomic nervous system Nonsurgical dumping syndrome Ischemic colitis Autonomic neuropathy Unspecified disorder of autonomic nervous system Nonsurgical dumping syndrome Ischemic colitis Autonomic neuropathy Unspecified disorder of autonomic nervous system Nonsurgical dumping syndrome documented in this encounter Additional Health Concerns Infection Onset Date Last Indicated Resolved Time 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 close contact 12/31/2019 12/31/2019 01/14/2020 1:23 AM EST Assessment Noted Time PHQ-2 Depression Total Score: 0 05/19/19 19 9:12 AM EDT documented as of this encounter Care Teams Manager Family Relationship Specialty Start Date End Date Shawn Omer MD [address] [place] [address] [email or web address] PCP - General Internal Medicine 03/18/14 Brianna Rodriguez ENTERTAINMENT LAWYER [address] [place] [address] Historical LMR Provider 11/25/1605/11 Shawn Omer MD [address] [place] [address] [email or web address] Historical LMR Provider 11/25/16 05/23/19 Markell Beltre MD [address] [place] [address] [email or web address] Historical LMR Provider 11/25/16 Nohemi Fuentes NP [facility] [address] [place] [address] Historical LMR Provider 11/25/16 Leann Simons NP [address] [place] [address] Historical LMR Provider 11/25/16 05/23/19 Jie An MD [address] [address] Breakfast Bar Attendant Endocrinology 09/02/17 Shawn Omer MD [address] [place] [address] Insurance Assigned Provider 05/17/23 Laya Sandoval MD [address] [address] Endocrinology 05/24/19 Delaney Soriano NP [address] [place] [address] Cardiology 05/24/19 Toby Nelosn MD [facility] [place] [address] Hospitalist 12/10/19 documented as of this encounter Additional Source Comments The information contained in this document represents components of the legal health record. It is not the complete legal health record.[facility]
--- OUTSIDE RECORDS SUMMARY | 2024-10-06 09:51 | XMS_ITS | Encounter Summary ---
Author Organization [facility] Address [address] [facility] [address] [place] [address] Phone Care Team Providers Care Real Estate Listing Consultant Name Role Phone Shawn Omer MD Primary Care Provider [phone] Brianna Rodriguez CHILD CARE SUPERVISOR Unavailable Unavailable Shawn Omer MD Unavailable Markell Beltre MD Unavailable [phone] Nohemi Fuentes CHILD CARE SUPERVISOR Unavailable [phone] Leann Simons CHILD CARE SUPERVISOR Unavailable [phone] Kal An MD Unavailable Shawn Omer MD Unavailable Laya Sandoval MD Unavailable Delaney Soriano NP Unavailable Toby Nelson MD Unavailable [phone] Reason for Referral * Consultation (Elective) - Closed Specialty Diagnoses / Procedures Referred By Mary Alice diaz Referred To Contact Neurology Diagnoses Autonomic neuropathy System, Provider Not In, PhD [id number] [place] [phone] Phone: tel: Referral ID Status Reason Start Date Expiration Date Visits Re quested Visits Authorized [id number] Closed 10/19/2018 10/20/2019 1 1 Encounter Details Date Type Department Care Team (Late Contact Info) Description 10/19/2018 Transcribe Orders [facility] Department of Neurology [address] [facility] 8th Floor, [address] [place] [address] System, Provider Not In, PhD Partners [address] [address] Autonomic neuropathy (Primary Dx) Social History Tobacco Use Types Packs/Day Years [...] 10:00 AM EDT Home [facility] Visit [facility] [address] [place] [phone] Leslie Lo RN [address] [place] [address] 10/08/2024 1:00 AM EDT Home Care Visit [facility] [address] [place] [phone] Jeanette Phillips [address] [place] [address] 10/11/2024 12:30 AM EDT Home Care Visit [facility] [address] [place] [phone] Leslie Lo RN [address] [place] [address] 10/12/2024 2:00 AM EDT Home Care Visit [facility] [address] [place] [phone] Yoel Phillipsliyah [address] [place] [address] [email or web address] 10/14/2024 Home Care Visit [facility] [address] [place] [phone] Leslie Lo, SAUD [address] [place] [address] [email or web address] 10/15/2024 1:00 AM EDT Home Care Visit [facility] [address] [place] [phone] PhillipsJay Jay olivah [address] [place] [address] [email or web address] 10/18/2024 Home Care Visit [facility] [address] [place] [phone] Leslie Lo, SAUD [address] [place] [address] [email or web address] 10/19/2024 1:00 AM EDT [facility] [address] [place] [phone] PhillipsJeanette oliva [address] [place] [address] [email or web address] 10/21/2024 Home Care Visit [facility] [address] [place] [address] Leslie Lo, SAUD [address] [place] [address] [email or web address] 10/22/2024 1:00 AM EDT Home Care Visit [facility] [address] [place] [phone] Phillips Jeanette [address] [place] [address] [email or web address] 10/25/2024 12:30 AM EDT Home [facility] [address] [place] [address] Leslie Lo, SAUD [address] [place] [address] [email or web address] 10/26/2024 2:00 AM EDT Home [facility] [address] [place] [address] Jeanette Phillips [address] [place] [address] [email or web address] 10/28/2024 Home Care Visit [facility] [address] [place] [address] Leslie Lo RN [address] [place] [address] [email or web address] 10/29/2024 1:00 AM EDT Home [facility] Visit [facility] [address] [place] [address] Jeanette Phillips [address] [place] [address] [email or web address] 11/01/2024 2:00 AM EDT Home Care Visit [facility] [address] [place] [phone] Leslie Lo, SAUD [address] [place] [address] [email or web address] 11/02/2024 2:00 AM EDT Home [facility] Visit [facility] [address] [place] [address] Jeanette Phillips [address] [place] [address] [email or web address] 11/04/2024 Home Care Visit [facility] [address] [place] [address] Leslie Lo RN [address] [place] [address] [email or web address] 11/05/2024 1:00 AM EDT Home [facility] [address] [place] [address] Jeanette Phillips [address] [place] [address] [email or web address] 11/08/2024 1:30 AM EDT Home [facility] Visit [facility] [address] [place] [phone] Leslie Lo RN [address] [place] [address] [email or web address] 11/09/2024 2:00 AM EDT Home Care Visit [facility] [address] [place] [phone] Jeanette Phillips [address] [place] [address] [email or web address] 11/11/2024 12:30 AM EDT Home Care Visit [facility] [address] [place] [phone] Leslie Lo RN [address] [place] [address] [email or web address] 11/12/2024 1:00 AM EDT Home [facility] Visit [facility] [address] [place] [address] Jeanette Phillips [address] [place] [address] [email or web address] 11/15/2024 1:30 AM EDT Home Care Visit [facility] [address] [place] [phone] Leslie Lo RN [address] [place] [address] [email or web address] 11/15/2024 9:00 AM EDT Office Visit [facility] [address] [address] Suki Altman PA-C [address] [place] [address] [email or web address] 11/16/2024 2:00 AM EDT Home Care Visit [facility] [address] [place] [address] Jeanette Phillips [address] [place] [address] [email or web address] 11/18/2024 Home Care Visit [facility] [address] [place] [address] Leslie Lo RN [address] [place] [address] [email or web address] 11/19/2024 1:00 AM EDT [facility] [address] [place] [address] Jeanette Phillips [address] [place] [address] [email or web address] 11/22/2024 Home Care Visit [facility] [address] [place] [address] Leslie Lo RN [address] [place] [address] [email or web address] 11/23/2024 2:00 AM EDT Home [facility] [address] [place] [address] Jeanette Phillips [address] [place] [address] 11/25/2024 Appointment [facility] [address] [place] [address] Leslie Lo RN [address] [place] [address] [email or web address] 11/26/2024 1:00 AM EDT Home Care Visit [facility] [address] [place] [address] Jeanette Phillips [address] [place] [address] [email or web address] 12/22/2024 9:30 AM EST Office Visit [facility] Internal Medicine [address] [place] [address] Shawn Omer MD [address] [place] [address] [email or web address] 03/14/2025 8:20 AM EST Office Visit [facility] Endocrinology [place] [address] [place] [address] Laya Sandoval MD [address] [place] [address] [email or web address] Scheduled Referrals Name Type Priority Associated Diagnoses Order Schedule Ambulatory referral to [facility] Neurology Outpatient Referral Routine Autonomic neuropathy Ordered: 10/19/2018 documented as of this encounter Visit Diagnoses Diagnosis Autonomic neuropathy- Primary Unspecified disorder of autonomic nervous system documented in this encounter Additional Health Concerns Infection Onset Date Last Indicated Resolved Time 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 close contact 12/31/2019 12/31/2019 01/14/2020 1:23 AM EST Assessment Noted Time PHQ-2 Depression Total Score: 0 05/19/19 19 9:12 AM EDT documented as of this encounter Care Teams Real Estate Listing Consultant Relationship Specialty Start Date End Date Shawn Omer MD [address] [place] [address] [email or web address] PCP - General Internal Medicine 03/18/14 Brianna Rodriguez NP [address] [place] [address] Historical LMR Provider 11/25/1605/11 Shawn Omer MD [address] [place] [address] [email or web address] Historical LMR Provider 11/25/16 05/23/19 Markell Beltre MD [address] [place] [address] [email or web address] Historical LMR Provider 11/25/16 Nohemi Fuentes NP [address] [place] [address] Historical LMR Provider 11/25/16 Leann Simons NP [address] [place] [address] [email or web address] Historical LMR Provider 11/25/16 05/23/19 Kal An MD [address] [place] [address] Bead Supervisor Endocrinology 09/02/17 Shawn Omer MD [address] [place] [address] [email or web address] Insurance Assigned Provider 05/17/23 Laya Sandoval MD [address] [address] [email or web address] Endocrinology 05/24/19 Delaney Soriano NP [address] [place] [address] Cardiology 05/24/19 Toby Nelson MD [facility] [place] [address] Hospitalist 12/10/19 documented as of this encounter Additional Source Comments The information contained in this document represents components of the legal health record. It is not the complete legal health record.[facility]
--- OUTSIDE RECORDS SUMMARY | 2024-10-06 09:51 | XMS_ITS | Encounter Summary ---
Author Organization [facility] Address [address] [place] [address] Care Team Providers Care Industrial Organizational Psychologist Name Role Phone Unavailable Primary Care Provider Unavailabl e Encounter Details Date Type Department Care Team (Late st Contact Info) Description 09/24/2024 Lab Requisition [facility] Pathology & Laboratory Medicine - [facility] [address] [place] [address] Raimundo Bronson MD [address] [place] [address] [place], [place] [address] Encounter for other general examination Social History Tobacco Use Types Packs/Day Years Used Date Smoking Tobacco: Never Assessed Comments Unknown Sex and Gender Information Value Date Recorded Sex Assigned at Not on file Legal Sex Female 11:26 EDT Gender Identity Not on file Sexual Orientation Not on file documented as of this encounter Plan of Treatment Pending Results Name Type Priority Associated Diagnoses Date /Time SURGICAL PATHOLOGY Pathology Routine Encounter for other general examination 09/24/2024 14:36 EDT documented as of this encounter Visit Diagnoses Diagnosis Encounter for other general examination documented in this encounter
--- OUTSIDE RECORDS SUMMARY | 2024-10-06 09:51 | XMS_ITS | Encounter Summary ---
Author Organization [facility] Address [address] [place] [address] [place] [address] Phone Care Team Providers Care Advertising Display Rotator Name Role Phone Shawn Omer MD Primary Care Provider Kal An MD Unavailable [phone] Shawn Omer MD Unavailable Laya Sandoval MD Unavailable Delaney Soriano NP Unavailable Toby Nelson MD Unavailable [phone] Encounter Details Date Type Department Care Team (Latest Contact Info) Description 06/15/2020 Transcribe Orders Virtual Department [address] [place] [address] Kal Ramirez MD [address] [place] [address] Nausea and vomiting, intractability of vomiting not specified, unspecified vomiting type (Primary Dx) Social History Tobacco Use Types [...] Care Visit [facility] [address] [place] [phone] Leslie Lo RN [address] [place] [address] 10/08/2024 1:00 AM EDT Home Care Visit [facility] [address] [place] [phone] Jeanette Phillips [address] [place] [address] 10/11/2024 12:30 AM EDT Home Care Visit [facility] [address] [place] [phone] Leslie Lo RN [address] [place] [address] 10/12/2024 2:00 AM EDT Home Care Visit [facility] [address] [place] [phone] Jeanette Phillips [address] [place] [address] 10/14/2024 Home Care Visit [facility] [address] [place] [address] Leslie Lo RN [address] [place] [address] 10/15/2024 1:00 AM EDT Home Care Visit [facility] [address] [place] [phone] Jeanette Phillips [address] [place] [address] 10/18/2024 Home Care Visit [facility] [address] [place] [address] Leslie Lo, SAUD [address] [place] [address] 10/19/2024 1:00 AM EDT Home Care Visit [facility] [address] [place] [address] Jeanette Phillips [address] [place] [address] 10/21/2024 Home Care Visit [facility] [address] [place] [address] Leslie Lo RN [address] [place] [address] 10/22/2024 1:00 AM EDT Home Care Visit [facility] [address] [place] [phone] Jeanette Phillips [address] [place] [address] 10/25/2024 12:30 AM EDT Home Care Visit [facility] [address] [place] [address] Leslie Lo, SAUD [address] [place] [address] 10/26/2024 2:00 AM EDT Home [facility] [address] [place] [address] Jeanette Phillips [address] [place] [address] 10/28/2024 Home Care Visit [facility] [address] [place] [address] Leslie Lo RN [address] [place] [address] 10/29/2024 1:00 AM EDT Home Care Visit [facility] [address] [place] [address] Jeanette Phillips [address] [place] [address] 11/01/2024 2:00 AM EDT Home [facility] [address] [place] [address] Leslie Lo RN [address] [place] [address] 11/02/2024 2:00 AM EDT Home [facility] [address] [place] [address] Jeanette Phillips [address] [place] [address] 11/04/2024 Home Care Visit [facility] [address] [place] [address] Leslie Lo RN [address] [place] [address] 11/05/2024 1:00 AM EDT Home Care [facility] [address] [place] [address] Jeanette Phillips [address] [place] [address] 11/08/2024 1:30 AM EDT Home Care Visit [facility] [address] [place] [address] Leslie Lo RN [address] [place] [address] 11/09/2024 2:00 AM EDT Home Care Visit [facility] [address] [place] [address] [address] [address] 11/11/2024 12:30 AM EDT Home Care Visit [facility] [address] [place] [address] Leslie Lo RN [address] [place] [address] 11/12/2024 1:00 AM EDT [facility] [address] [place] [phone] [address] 11/15/2024 1:30 AM EDT Home Care Visit [facility] [address] [place] [phone] Leslie Lo RN [address] [place] [address] 11/15/2024 9:00 AM EDT Office Visit [facility] Endocrinology [address] [phone] Suki Altman PA-C [address] [place] [address] 11/16/2024 2:00 AM EDT Home Care Visit [facility] [address] [place] [phone] Jeanette Phillips [address] [place] [address] 11/18/2024 Home Care [facility] [address] [place] [address] Leslie Lo, SAUD [address] [place] [address] 11/19/2024 1:00 AM EDT Home [facility] [address] [place] [address] Jeanette Phillips [address] [place] [address] 11/22/2024 Home Care Visit [facility] [address] [place] [phone] Leslie Lo RN [address] [place] [address] 11/23/2024 2:00 AM EDT Home [facility] [address] [place] [phone] Jeanette Phillips [address] [place] [address] 11/25/2024 Appointment [facility] [address] [place] [address] Leslie Lo, SAUD [address] [place] [address] 11/26/2024 1:00 AM EDT Home [facility] [address] [place] [address] Jeanette Phillips [address] [place] [address] 12/22/2024 9:30 AM EST Office Visit [facility] [place] [facility] [address] [place] [address] Shawn Omer MD [address] [place] [address] [email or web address] 03/14/2025 8:20 AM EST Office Visit [facility] Endocrinology [place] [address] [place] [phone] Laya Sandoval MD [address] [place] [address] [email or web address] documented as of this encounter Visit Diagnoses Diagnosis Nausea and vomiting, intractability of vomiting not specified, unspecified vomiting type- Primary documented in this encounter Additional Health Concerns Assessment Noted Time PHQ-2 Depression Total Score: 0 04/12/19 21 9:12 AM EST documented as of this encounter Care Teams Advertising Display Rotator Relationship Specialty Start Date End Date Shawn Omer MD [address] [place] [address] [email or web address] PCP - General Internal Medicine 03/18/14 Kal An MD [address] [place] [address] Strategy Manager Endocrinology 09/02/17 Shawn Omer MD [address] [place] [address] [email or web address] Insurance Assigned Provider 05/17/23 Laya Sandoval MD [address] [place] [address] Endocrinology 05/24/19 Delaney Soriano NP [address] [place] [address] Cardiology 05/24/19 Toby Nelson MD [address] [facility] [place] [address] Hospitalist 12/10/19 documented as of this encounter Additional Source Comments The information contained in this document represents components of the legal health record. It is not the complete legal health record.[facility]
--- OUTSIDE RECORDS SUMMARY | 2024-10-06 09:51 | XMS_ITS | Encounter Summary ---
Author Organization [facility] Address [address] [address] Phone Care Team Providers Care Railroad Police Officer Name Role Phone Shawn Omer MD Primary Care Provider Brianna Rodriguez SAFE DEPOSIT ATTENDANT Unavailable Unavailable Shawn Omer MD Unavailable Markell Beltre MD Unavailable [phone] Nohemi Fuentes SAFE DEPOSIT ATTENDANT Unavailable Laenn Simons SAFE DEPOSIT ATTENDANT Unavailable [phone] Kal An MD Unavailable Shawn Omer MD Unavailable Laya Sandoval MD Unavailable Delaney Soriano NP Unavailable Toby Nelson MD Unavailable [phone] Reason for Referral * Consultation (Elective) - Closed Specialty Diagnoses / Procedures Referred By Mary Alice diaz Referred To Contact Gastroenterology Diagnoses Diarrhea, unspecified type System, Provider Not In, [facility] [address] [address] Quirino Curiel MD Phone: tel: fax: [email or web address] Referral ID Status Reason Start Date Expiration Date Visits Re quested Visits Authorized [id number] Closed 11/06/2018 11/07/2019 1 1 Encounter Details Date Type Department Care Team (Latest Contact Info) Description 11/06/2018 Transcribe Orders [facility] [address] [place] [address] Quirino Curiel MD [address] [place] [phone] [email or web address] Diarrhea, unspecified type (Primary Dx) Social History Tobacco Use [...] Care Visit [facility] [address] [place] [address] Leslie Lo RN [address] [place] [address] 10/08/2024 1:00 AM EDT Home Care Visit [facility] [address] [place], [place] [phone] Jeanette Phillips [address] [place] [address] 10/11/2024 12:30 AM EDT Home Care Visit [facility] [address] [place], [place] [phone] Leslie Lo RN [address] [place] [address] 10/12/2024 2:00 AM EDT Home Care Visit [facility] [address] [place] [address] Jeanette Phillips [address] [place] [address] 10/14/2024 Home Care Visit [facility] [address] [place] [address] Leslie Lo, SAUD [address] [place] [address] 10/15/2024 1:00 AM EDT Home Care Visit [facility] [address] [place] [phone] Jeanette Phillips [address] [place] [address] 10/18/2024 Home Care Visit [facility] [address] [place] [address] Leslie Lo RN [address] [place] [address] 10/19/2024 1:00 AM EDT Home Care Visit [facility] [address] [place] [address] Jeanette Phillips [address] [place] [address] 10/21/2024 Home Care Visit [facility] [address] [place] [address] Leslie Lo, SAUD [address] [place] [address] 10/22/2024 1:00 AM EDT Home Care Visit [facility] [address] [place] [address] PhillipsJeanette oliva [address] [place] [address] 10/25/2024 12:30 AM EDT Home Care Visit [facility] [address] [place] [address] Leslie Lo RN [address] [place] [address] 10/26/2024 2:00 AM EDT Home Care Visit [facility] [address] [place] [address] Jacqueline Jeanette [address] [place] [address] 10/28/2024 Home Care Visit [facility] [address] [place] [address] Leslie Lo RN [address] [place] [address] 10/29/2024 1:00 AM EDT Home Care Visit [facility] [address] [place] [phone] Jacqueline Jeanette [address] [place] [address] 11/01/2024 2:00 AM EDT Home Care Visit [facility] [address] [place] [address] Leslie Lo RN [address] [place] [address] 11/02/2024 2:00 AM EDT Home Care Visit [facility] [address] [place] [address] Jeanette Phillips [address] [place] [address] 11/04/2024 Home Care [facility] [address] [place] [address] Leslie Lo, SAUD [address] [place] [address] 11/05/2024 1:00 AM EDT Home [facility] [address] [place] [address] [address] 11/08/2024 1:30 AM EDT Home [facility] [address] [place] [phone] Leslie Lo RN [address] [place] [address] 11/09/2024 2:00 AM EDT Home Care [facility] [address] [place] [phone] [address] [address] 11/11/2024 12:30 AM EDT Home Care Visit [facility] [address] [place] [address] Leslie Lo, SAUD [address] [place] [address] 11/12/2024 1:00 AM EDT Home [facility] [address] [place] [address] Jacqueline Jeanette [address] [place] [address] 11/15/2024 1:30 AM EDT Home Care Visit [facility] [address] [place] [address] Leslie Lo RN [address] [place] [address] 11/15/2024 9:00 AM EDT Office Visit [facility] [address] [phone] Suki Altman PA-C [address] [place] [address] 11/16/2024 2:00 AM EDT Home Care Visit [facility] [address] [place] [address] Jeanette Phillips [address] [place] [address] 11/18/2024 Home Care Visit [facility] [address] [place] [address] Leslie Lo RN [address] [place] [address] 11/19/2024 1:00 AM EDT Home Care Visit [facility] [address] [place] [address] Jeanette Phillips [address] [place] [address] 11/22/2024 Home Care Visit [facility] [address] [place] [address] Leslie Lo, SAUD [address] [place] [address] 11/23/2024 2:00 AM EDT Home Care Visit [facility] [address] [place] [address] Jeanette Phillips [address] [place] [address] [email or web address] 11/25/2024 Appointment [facility] [address] [place] [address] Leslie Lo RN [address] [place] [address] [email or web address] 11/26/2024 1:00 AM EDT Home Care [facility] [address] [place] [address] Jay Jay Phillipsh [address] [place] [address] [email or web address] 12/22/2024 9:30 AM EST Office Visit [facility] [address] [place] [address] Shawn Omer MD [address] [place] [address] [email or web address] 03/14/2025 8:20 AM EST Office Visit [facility] Endocrinology [place] [address] [place] [phone] Laya Sandoval MD [address] [place] [address] [email or web address] Scheduled Referrals Name Type Priority Associated Diagnoses Order Schedule Ambulatory referral to [facility] Gastroenterology (Consult Requests Only) Outpatient Referral Routine Diarrhea, unspecified type Ordered: 11/06/2018 documented as of this encounter Visit Diagnoses Diagnosis Diarrhea, unspecified type- Primary documented in this encounter Additional Health Concerns Infection Onset Date Last Indicated Resolved Time 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 close contact 12/31/2019 12/31/2019 01/14/2020 1:23 AM EST Assessment Noted Time PHQ-2 Depression Total Score: 0 05/19/19 19 9:12 AM EDT documented as of this encounter Care Teams Railroad Police Officer Relationship Specialty Start Date End Date Shawn Oemr MD [address] [place] [address] [email or web address] PCP - General Internal Medicine 03/18/14 Brianna Rodriguez SAFE DEPOSIT ATTENDANT [address] [place] [address] Historical LMR Provider 11/25/1605/11 Shawn Omer MD [address] [place] [address] [email or web address] Historical LMR Provider 11/25/16 05/23/19 Markell Beltre MD [address] [place] [address] [email or web address] Historical LMR Provider 11/25/16 Nohemi Fuentes, JEFF [address] [place] [address] Historical LMR Provider 11/25/16 Leann Simons NP [address] [place] [address] 6 [place] [address] [email or web address] Historical LMR Provider 11/25/16 05/23/19 Kal An MD [address] [place] [address] 6 [place] [address] [employer] Endocrinology 09/02/17 Shawn Omer MD [address] [place] [address] Insurance Assigned Provider 05/17/23 Laya Sandoval MD [address] [place] [address] Endocrinology 05/24/19 Delaney Soriano NP [address] [place] [address] Cardiology 05/24/19 Toby Nelson MD [address] [place] [address] [place] [address] Hospitalist 12/10/19 documented as of this encounter Additional Source Comments The information contained in this document represents components of the legal health record. It is not the complete legal health record.[facility]
--- OUTSIDE RECORDS SUMMARY | 2024-10-06 09:51 | XMS_ITS | Encounter Summary ---
Author Organization [facility] Address [address] [facility] [address] [place] [address] Phone Care Team Providers Care Unit Trust Manager Name Role Phone Shawn Omer MD Primary Care Provider Brianna Rodriguez CALLIOPE PLAYER Unavailable Unavailable Shawn Omer MD Unavailable Markell Beltre MD Unavailable Nohemi Fuentes CALLIOPE PLAYER Unavailable [phone] Leann Simons CALLIOPE PLAYER Unavailable [phone] Kal An MD Unavailable Shawn Omer MD Unavailable Laya Sandoval MD Unavailable Delaney Soriano CALLIOPE PLAYER Unavailable Toby Nelson MD Unavailable [phone] Encounter Details Date Type Department Care Team (Latest Contact Info) Description 11/17/2017 Transcribe Orders [facility] Laboratory [address] [facility], [place] [address] Kal Ramirez MD [address] [place] [address] Pelvic pain (Primary Dx) Social History Tobacco Use Types [...] Care Visit [facility] [address] [place] [phone] Leslie Lo RN [address] [place] [address] 10/08/2024 1:00 AM EDT Home [facility] [address] [place] [phone] Jeanette Phillips [address] [place] [address] 10/11/2024 12:30 AM EDT Home [facility] [address] [place] [phone] Leslie Lo RN [address] [place] [address] 10/12/2024 2:00 AM EDT Home Care Visit [facility] [address] [place] [phone] Jeanette Phillips [address] [place] [address] 10/14/2024 Home Care Visit [facility] [address] [place] [phone] Leslie Lo RN [address] [place] [address] 10/15/2024 1:00 AM EDT Home [facility] [address] [place] [address] PhillipsJay Jay olivah [address] [place] [address] 10/18/2024 Home Care Visit [facility] [address] [place] [address] Leslie Lo, SAUD [address] [place] [address] 10/19/2024 1:00 AM EDT Home [facility] [address] [place] [address] [address] [address] 10/21/2024 Home Care Visit [facility] [address] [place] [address] Leslie Lo, SAUD [address] [place] [address] 10/22/2024 1:00 AM EDT Home [facility] [address] [place] [address] Jeanette Phillips [address] [place] [address] 10/25/2024 12:30 AM EDT Home Care Visit [facility] [address] [place] [address] Leslie Lo, SAUD [address] [place] [address] 10/26/2024 2:00 AM EDT Home [facility] Visit [facility] [address] [place] [address] PhillipsJay Jay olivah [address] [place] [address] 10/28/2024 Home Care Visit [facility] [address] [place] [address] Leslie Lo RN [address] [place] [address] 10/29/2024 1:00 AM EDT Home [facility] Visit [facility] [address] [place] [phone] PhillipsJeanette oliva [address] [place] [address] 11/01/2024 2:00 AM EDT Home [facility] [address] [place] [phone] Leslie Lo RN [address] [place] [address] 11/02/2024 2:00 AM EDT Home Care Visit [facility] [address] [place] [phone] PhillipsJay Jay oliva[address] [address] 11/04/2024 Home Care Visit [facility] [address] [place] [address] Leslie Lo RN [address] [place] [address] 11/05/2024 1:00 AM EDT Home [facility] [address] [place] [phone] Jacqueline Jeanette [address] [place] [address] 11/08/2024 1:30 AM EDT Home [facility] [address] [place] [phone] Leslie Lo, SAUD [address] [place] [address] 11/09/2024 2:00 AM EDT Home [facility] [address] [place] [phone] Jeanette Phillips [address] [place] [address] 11/11/2024 12:30 AM EDT Home Care Visit [facility] [address] [place] [phone] Leslie Lo RN [address] [place] [address] 11/12/2024 1:00 AM EDT Home [facility] [address] [place] [phone] Jeanette Phillips [address] [place] [address] 11/15/2024 1:30 AM EDT Home Care [facility] [address] [place] [phone] Leslie Lo, SAUD [address] [place] [address] 11/15/2024 9:00 AM EDT Office Visit [facility] [address] [phone] Suki Altman PA-C [address] [place] [address] 11/16/2024 2:00 AM EDT Home [facility] [address] [place] [address] PhillipsJeanette olvia [address] [place] [address] 11/18/2024 Home Care Visit [facility] [address] [place] [address] Leslie Lo, SAUD [address] [place] [address] 11/19/2024 1:00 AM EDT Home Care Visit [facility] [address] [place] [address] [address] [address] 11/22/2024 Home Care Visit [facility] [address] [place] [address] Leslie Lo, SAUD [address] [place] [address] 11/23/2024 2:00 AM EDT Home [facility] [address] [place] [address] Jacqueline Jeanette [address] [place] [address] 11/25/2024 Appointment [facility] [address] [place] [address] Leslie Lo, SAUD [address] [place] [address] 11/26/2024 1:00 AM EDT Home Care Visit [facility] [address] [place] [address] Jeanette Phillips [address] [place] [address] 12/22/2024 9:30 AM EST Office Visit [facility] [address] [place] [address] Shawn Omer MD [address] [place] [address] 03/14/2025 8:20 AM EST Office Visit [facility] Endocrinology [place] [address] [place] [address] Laya Sandoval MD [address] [place] [phone] [email or web address] documented as of this encounter Results * (ABNORMAL) Comprehensive metabolic panel (11/17/2017 8:29 AM EDT) SODIUM 141 133 - 146 mmol/L [facility] POTASSIUM 4.4 3.3 - 5.1 mmol/L [facility] CHLORIDE 98 96 - 108 mmol/L [facility] CO2 28 21 - 35 mmol/L [facility] BUN 12 6 - 19 mg/dL [facility] CREATININE 0.50 0.5 - 1.5 mg/dL [facility] GLUCOSE 109(H) 70 - 99 mg/dL [facility] ALBUMIN 4.2 3.9 - 4.8 g/dL [facility] TOTAL PROTEIN 7.1 6.5 - 8.0 g/dL [facility] CALCIUM 9.4 8.4 - 10.3 mg/dL [facility] ALKALINE PHOSPHATASE 53 39 - 117 U/L [facility] TOTAL BILIRUBIN 0.5 0.0 - 1.2 mg/dL [facility] AST 17 0 - 37 U/L [facility] ALT 16 0 - 40 U/L [facility] GLOBULIN 2.9 1 - 4.8 g/dL [facility] EGFR 99 >59 mL/min/1.7 3m2 [facility] Comment:If patient is black, multiply result by 1.159. Estimated glomerular filtration rate calculated using the CKD-EPI equation. ANION GAP 19 10 - 20 mmol/L [facility] Blood 11/17/2017 8:29 AM EDT 11/17/2017 8:31 AM EDT us Kal Ramirez MD LAB BLOOD ORDERABLES Final Res ult [facility] [address] [place] [address] documented in this encounter Visit Diagnoses Diagnosis Pelvic pain- Primary documented in this encounter Additional Health Concerns Infection Onset Date Last Indicated Resolved Time 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 close contact 12/31/2019 12/31/2019 01/14/2020 1:23 AM EST Assessment Noted Time PHQ-2 Depression Total Score: 0 03/13/19 18 8:47 AM EST documented as of this encounter Care Teams Unit Trust Manager Relationship Specialty Start Date End Date Shawn Omer MD [address] [place] [address] [email or web address] PCP - General Internal Medicine 03/18/14 Brianna Rodriguez CALLIOPE PLAYER [address] [place] [address] Historical LMR Provider 11/25/1605/11 Shawn Omer MD [address] [place] [address] [email or web address] Historical LMR Provider 11/25/16 05/23/19 Markell Beltre MD [address] [place] [address] [email or web address] Historical LMR Provider 11/25/16 Nohemi Fuentes, JEFF [facility] [address] [place] [address] Historical LMR Provider 11/25/16 Leann Simons NP [address] [place] [address] Historical LMR Provider 11/25/16 05/23/19 Kal An MD [address] [place] [address] [employer] Endocrinology 09/02/17 Shawn Omer MD [address] [place] [address] Insurance Assigned Provider 05/17/23 Laya Sandoval MD [address] [address] Endocrinology 05/24/19 Delaney Soriano NP [address] [place] [address] Cardiology 05/24/19 [place] [address] [place] [address] [place] [address] Hospitalist 12/10/19 documented as of this encounter Additional Source Comments The information contained in this document represents components of the legal health record. It is not the complete legal health record.[facility]
--- OUTSIDE RECORDS SUMMARY | 2024-10-06 09:51 | XMS_ITS | Clinical Summary ---
Author Organization [facility] Address [address] [place] [address] Care Team Providers Care Design Center Consultant Name Role Phone Unavailable Primary Care Provider Unavailabl e Encounters Date Type Department Care Team Description 09/24/2024 Lab Requisition [facility] Pathology & Laboratory [address] [address] Raimundo Bronson MD Encounter for other general examination 08/23/2024 Lab Requisition [facility] Pathology & Laboratory [address] [address] Outr Resulting Lab, Provider from Last 3 Months Social History Tobacco Use Types Packs/Day Years Used Date Smoking Tobacco: Never Assessed Comments Unknown Sex and Gender Information Value Date Recorded Sex Assigned at Not on file Legal Sex Female 11:26 EDT Gender Identity Not on file Sexual Orientation Not on file Plan of Treatment Health Maintenance Due Date Last Done Comments Hepatitis C Screen 1950 Fall Risk Screening 2014 COVID-19 Vaccine (2023- season) 2023 RSV Immunization ( o r 60+ Years) (1 - 1-dose 75+ series) 2024 Procedures Procedure Name Priority Date/Time Associated Diagnosis Comments FECAL BACTERIAL PATHOGENS BY PCR Routine 08/23/2024 8:00 EDT PARASITE SCREEN, STOOL Routine 08/23/2024 8:00 EDT from Last 3 Months Results * PARASITE SCREEN, STOOL (08/23/2024 8:00 EDT) Giardia and Cryptosporidium Cryptosporidium Antigen Neg and Giardia Antigen Neg Cryptosporidium Antigen Neg and Giardia Antigen Neg 12:09 EDT [facility] Feces SPECIMEN FROM RECTUM / Unknown 08/23/2024 8:00 EDT 08/23/2024 22:21 EDT us Provider Outr Resulting Lab MICROBIOLOGY - GENER AL ORDERABLES Final Result Performing Organization Address [facility] Co de Phone Number [facility] [address] [place] [address] * FECAL BACTERIAL PATHOGENS BY PCR (08/23/2024 8:00 EDT) Salmonella PCR Negative Negative 08/24/2024 14:47 EDT [facility] Shigella/Enteroin vasive E. coli Negative Negative 08/24/2024 14:47 EDT [facility] HN LAB CAMPYLOBACTER PCR Negative Negative 08/24/2024 14:47 EDT [facility] Shiga Toxin PCR Negative Negative 14:47 EDT [facility] Feces SPECIMEN FROM RECTUM / Unknown 08/23/2024 8:00 EDT 08/23/2024 22:21 EDT us Provider Outr Resulting Lab MICROBIOLOGY - GENER AL ORDERABLES Final Result Performing Organization Address [facility]/ZIP Co de Phone Number [facility] [address] [place] [address] from Last 3 Months
--- OUTSIDE RECORDS SUMMARY | 2024-10-06 09:51 | XMS_ITS | Encounter Summary ---
Author Organization [facility] Address [address] [address] Phone Care Team Providers Care Recruitment Manager Name Role Phone Shawn Omer MD Primary Care Provider Brianna Rodriguez RASCHEL KNITTING MACHINE OPERATOR Unavailable Unavailable Shawn Omer MD Unavailable Markell Beltre MD Unavailable Nohemi Fuentes RASCHEL KNITTING MACHINE OPERATOR Unavailable [phone] Leann Simons RASCHEL KNITTING MACHINE OPERATOR Unavailable [phone] Kal An MD Unavailable Shawn Omer MD Unavailable Laya Sandoval MD Unavailable Delaney Soriano NP Unavailable Toby Nelson MD Unavailable [phone] Encounter Details Date Type Department Care Team (Late st Contact Info) Description 08/21/2018 Ancillary Orders [facility] Orthopedics & Sports Medicine [address] [place] [address] Reji Dave PA-C [address] [place] [address] Orthopedics & Sports Medicine, [facility] [place] [address] [email or web address] Left arm pain Social History Tobacco Use Types Packs/Day Years [...] Care Visit [facility] [address] [place] [phone] Leslie Lo RN [address] [place] [address] [email or web address] 10/08/2024 1:00 AM EDT Home Care Visit [facility] [address] [place] [phone] Jeanette Phillips [address] [place] [address] [email or web address] 10/11/2024 12:30 AM EDT Home Care Visit [facility] [address] [place] [phone] Leslie Lo RN [address] [place] [address] [email or web address] 10/12/2024 2:00 AM EDT Home Care Visit [facility] [address] [place] [phone] Jeanette Phillips [address] [place] [address] [email or web address] 10/14/2024 Home Care Visit [facility] [address] [place] [phone] Leslie Lo RN [address] [place] [address] [email or web address] 10/15/2024 1:00 AM EDT Home Care Visit [facility] [address] [place] [address] Jacqueline Jeanette [address] [place] [address] [email or web address] 10/18/2024 Home Care Visit [facility] [address] [place] [address] Leslie Lo, SAUD [address] [place] [address] [email or web address] 10/19/2024 1:00 AM EDT Home Care Visit [facility] [address] [place] [address] [address] [address] [email or web address] 10/21/2024 Home Care Visit [facility] [address] [place] [address] Leslie Lo, SAUD [address] [place] [address] [email or web address] 10/22/2024 1:00 AM EDT Home Care Visit [facility] [address] [place] [address] Jeanette Phillips [address] [place] [address] [email or web address] 10/25/2024 12:30 AM EDT Home Care Visit [facility] [address] [place] [address] Leslie Lo, SAUD [address] [place] [address] [email or web address] 10/26/2024 2:00 AM EDT Home Care Visit [facility] [address] [place] [address] Phillips Jeanette [address] [place] [address] [email or web address] 10/28/2024 Home Care Visit [facility] [address] [place] [address] Leslie Lo RN [address] [place] [address] [email or web address] 10/29/2024 1:00 AM EDT Home [facility] [address] [place] [address] Jacqueline Jeanette [address] [place] [address] [email or web address] 11/01/2024 2:00 AM EDT Home [facility] Visit [facility] [address] [place] [phone] Leslie Lo RN [address] [place] [address] [email or web address] 11/02/2024 2:00 AM EDT Home Care Visit [facility] [address] [place] [phone] Jeanette Phillips [address] [place] [address] [email or web address] 11/04/2024 Home Care Visit [facility] [address] [place] [address] Leslie Lo, SAUD [address] [place] [address] [email or web address] 11/05/2024 1:00 AM EDT Home [facility] [address] [place] [address] Jeanette Phillips [address] [place] [address] [email or web address] 11/08/2024 1:30 AM EDT Home [facility] [address] [place] [phone] Leslie Lo, SAUD [address] [place] [address] [email or web address] 11/09/2024 2:00 AM EDT [facility] [address] [place] [phone] Phillips Jeanette[address] [address] [email or web address] 11/11/2024 12:30 AM EDT Home Care [facility] [address] [place] [phone] Leslie Lo RN [address] [place] [address] [email or web address] 11/12/2024 1:00 AM EDT Home Care [facility] [address] [place] [phone] Phillips Jeanette[address] [address] [email or web address] 11/15/2024 1:30 AM EDT Home Care Visit [facility] [address] [place] [phone] Leslie Lo, SAUD [address] [place] [address] [email or web address] 11/15/2024 9:00 AM EDT Office Visit [facility] Endocrinology [address] [phone] Suki Altman PA-C [address] [place] [address] [email or web address] 11/16/2024 2:00 AM EDT Home Care Visit [facility] [address] [place] [address] Phillips Jeanette [address] [place] [address] [email or web address] 11/18/2024 Home Care Visit [facility] [address] [place] [address] Leslie Lo, SAUD [address] [place] [address] [email or web address] 11/19/2024 1:00 AM EDT Home Care Visit [facility] [address] [place] [phone] Jacqueline Jeanette[address] [address] [email or web address] 11/22/2024 Home Care Visit [facility] [address] [place] [phone] Leslie Lo, SAUD [address] [place] [address] [email or web address] 11/23/2024 2:00 AM EDT Home Care Visit [facility] [address] [place] [address] Jacqueline Jeanette[address] [address] [email or web address] 11/25/2024 Appointment [facility] [address] [place] [address] Leslie Lo, SAUD [address] [place] [address] [email or web address] 11/26/2024 1:00 AM EDT Home Care [facility] [address] [place] [address] Jeanette Phillips [address] [place] [address] [email or web address] 12/22/2024 9:30 AM EST Office Visit [facility] Internal Medicine [address] [place] [address] Shawn Omer MD [address] [place] [address] [email or web address] 03/14/2025 8:20 AM EST Office Visit [facility] Endocrinology [place] [address] [place] [phone] Laya Sandoval MD [address] [address] [email or web address] documented as of this encounter Results * XR SHOULDER 2 VIEWS (RIGHT) (08/21/2018 8:27 AM EDT) Narrative SYSTEMGENERATED, DOCUMENTATION - 08/21/2018 8:27 AM EDT This image report has been auto-finalized and has not been read by a Radiologist. Interpretation has been included in the provider encounter note for this date of service. Reji Dave PA-C IMG XR UPPER EXTREMITY Final Result documented in this encounter Visit Diagnoses Diagnosis Left arm pain Pain in soft tissues of limb Left arm pain Pain in soft tissues of limb documented in this encounter Additional Health Concerns Infection Onset Date Last Indicated Resolved Time 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 close contact 12/31/2019 12/31/2019 01/14/2020 1:23 AM EST Assessment Noted Time PHQ-2 Depression Total Score: 0 05/19/19 19 9:12 AM EDT documented as of this encounter Care Teams Recruitment Manager Relationship Specialty Start Date End Date Shawn Omer MD [address] [place] [address] [email or web address] PCP - General Internal Medicine 03/18/14 Brianna Rodriguez RASCHEL KNITTING MACHINE OPERATOR [address] [place] [address] Historical LMR Provider 11/25/1605/11 Shawn Omer MD [address] [place] [address] [email or web address] Historical LMR Provider 11/25/16 05/23/19 Markell Beltre MD [address] [place] [address] [email or web address] Historical LMR Provider 11/25/16 Nohemi Fuentes NP [address] [place] [address] Historical LMR Provider 11/25/16 Leann Simons NP [address] [place] [address] [email or web address] Historical LMR Provider 11/25/16 05/23/19 Kal An MD [address] [place] [address] [employer] Endocrinology 09/02/17 Shawn Omer MD [address] [place] [address] [email or web address] Insurance Assigned Provider 05/17/23 Laya Sandoval MD [address] [address] [email or web address] Endocrinology 05/24/19 Delaney Soriano NP [address] [place] [address] Cardiology 05/24/19 Toby Nelson MD [facility] [place] [address] Hospitalist 12/10/19 documented as of this encounter Additional Source Comments The information contained in this document represents components of the legal health record. It is not the complete legal health record.[facility]
--- OUTSIDE RECORDS SUMMARY | 2024-10-06 09:52 | XMS_ITS | Encounter Summary ---
Author Organization [facility] Address [address] [facility] [address] [place] [address] Phone Care Team Providers Care House Cleaner Supervisor Name Role Phone Shawn Omer MD Primary Care Provider [phone] Kal An MD Unavailable Shawn Omer MD Unavailable [phone] Laya Sandoval MD Unavailable [phone] Delaney Soriano NP Unavailable Toby Nelson MD Unavailable [phone] Reason for Visit * Reason Onset Date Comments Results 10/01/2024 Encounter Details Date Type Department Care Team (Late st Contact Info) Description 10/01/2024 Telephone [facility] Internal Medicine [address] [place], [place] [phone] Tessy Dinh, SAUD [address] [place], [place] [phone] Results Social History Tobacco Use Types Packs/Day Years [...] as of this encounter Progress Notes * Tessy Dinh RN - 10/01/2024 11:26 AM EDT Spoke with MISAEL Holt visiting rn who is with the patient now. She states she uploaded a picture ofthe rash on the portal (can't see it on my end). States she has a couple questions as well. She states she will call back later once she collects her thoughts. * Tessy Dinh RN - 10/01/2024 11:22 AM EDT Spoke to Eloina and advised. She states understanding, she will come to the lab Friday. * Tessy Dinh RN - 10/01/2024 11:20 AM EDT Images from the original note were not included. Sandra Klein PA-C [facility] Would also recommend doing a UA to rule out any underlying UTI that could be contributing to the elevated white blood cells, ordered. Sandra Klein PA-C [facility] White blood cells are elevated and higher than what it was from discharge, at discharge it was 16. No evidence of anemia. Would recommend rechecking a CBC on Friday to reassess. Ferritin is elevated, likely in the setting of an acute phase reactant, this is suspected given herrecent surgery. CRP is elevated at 7.3 which is greatly improved from discharge when it was 11. Electrolytes are within normal limits. Alkaline phosphatase is elevated at 161. Iron panel within normal limits, phosphorus and magnesium within normal limits, although on the lower end of normal. Continue supplementation. documented in this encounter Plan of Treatment Upcoming Encounters Date Type Department Care Team (Late st Contact Info) Description 10/07/2024 10:00 AM EDT [facility] [address] [place], [place] [phone] Leslie Lo RN [address] [place] [address] 10/08/2024 1:00 AM EDT Home [facility] Visit [facility] [address] [place], [place] [phone] Jeanette Phillips [address] [place] [address] 10/11/2024 12:30 AM EDT Home [facility] [address] [place] [address] Leslie Lo RN [address] [place] [address] 10/12/2024 2:00 AM EDT Home [facility] [address] [place] [address] Phillips Jeanette [address] [place] [address] 10/14/2024 Home Care Visit [facility] [address] [place] [address] Leslie Lo RN [address] [place] [address] 10/15/2024 1:00 AM EDT Home [facility] [address] [place] [address] [address] [address] 10/18/2024 Home Care Visit [facility] [address] [place] [address] Leslie Lo RN [address] [place] [address] 10/19/2024 1:00 AM EDT Home [facility] Visit [facility] [address] [place] [address] Phillips Jeanette [address] [place] [address] 10/21/2024 Home [facility] Visit [facility] [address] [place] [address] Leslie Lo, SAUD [address] [place] [address] 10/22/2024 1:00 AM EDT Home [facility] [address] [place] [address] Jeanette Phillips [address] [place] [address] 10/25/2024 12:30 AM EDT Home [facility] [address] [place] [address] Leslie Lo RN [address] [place] [address] 10/26/2024 2:00 AM EDT Home [facility] [address] [place] [address] Jeanette Phillips [address] [place] [address] 10/28/2024 Home Care Visit [facility] [address] [place] [address] Leslie Lo RN [address] [place] [address] 10/29/2024 1:00 AM EDT Home Care [facility] [address] [place] [address] Jeanette Phillips [address] [place] [address] 11/01/2024 2:00 AM EDT Home [facility] [address] [place] [address] Leslie Lo RN [address] [place] [address] 11/02/2024 2:00 AM EDT Home [facility] [address] [place] [address] Jeanette Phillips [address] [place] [address] 11/04/2024 Home Care Visit [facility] [address] [place] [address] Leslie Lo, SAUD [address] [place] [address] 11/05/2024 1:00 AM EDT Home [facility] [address] [place] [address] PhillipsJay Jay olivah [address] [place] [address] 11/08/2024 1:30 AM EDT Home [facility] [address] [place] [phone] Leslie Lo, SAUD [address] [place] [address] 11/09/2024 2:00 AM EDT Home [facility] [address] [place] [address] PhillipsJay Jay oliva[address] [address] 11/11/2024 12:30 AM EDT Home [facility] [address] [place] [address] Leslie Lo, SAUD [address] [place] [address] 11/12/2024 1:00 AM EDT Home [facility] [address] [place] [address] Phillips Jeanette [address] [place] [address] 11/15/2024 1:30 AM EDT Home Care Visit [facility] [address] [place] [address] Leslie Lo RN [address] [place] [address] 11/15/2024 9:00 AM EDT Office Visit [facility] Endocrinology [address] [address] Suki Altman PA-C 22 [place] [address] 11/16/2024 2:00 AM EDT Home [facility] [address] [place] [address] Jeanette Phillips [address] [place] [address] 11/18/2024 Home Care Visit [facility] [address] [place] [address] Leslie Lo RN [address] [place] [address] 11/19/2024 1:00 AM EDT Home Care Visit [facility] [address] [place] [address] Jeanette Phillips [address] [place] [address] 11/22/2024 Home Care Visit [facility] [address] [place] [address] Leslie Lo, SAUD [address] [place] [address] 11/23/2024 2:00 AM EDT Home Care Visit [facility] [address] [place] [address] Jeanette Phillips [address] [place] [address] 11/25/2024 Appointment [facility] [address] [place] [address] Leslie Lo RN [address] [place] [address] 11/26/2024 1:00 AM EDT Home [facility] [address] [place] [address] Jay Jya Phillipsh [address] [place] [address] 12/22/2024 9:30 AM EST Office Visit [facility] Internal Medicine [address] [place] [address] Shawn Omer MD 40 [place] [address] 03/14/2025 8:20 AM EST Office Visit [facility] Endocrinology [place] [address] [place] [address] Laya Sandoval MD [address] [place] [address] documented as of this encounter Visit Diagnoses Not on filedocumented in this encounter Additional Health Concerns Assessment Noted Time PHQ-2 Depression Total Score: 0 12/14/19 24 1:10 PM EST documented as of this encounter Care Teams House Cleaner Supervisor Relationship Specialty Start Date End Date Shawn Omer MD [address] [place] [address] PCP - General Internal Medicine 03/18/14 Kal An MD [address] [place] [address] Automotive Electrician Endocrinology 09/02/17 Shawn Omer MD [address] [place] [address] Insurance Assigned Provider 05/17/23 Laya Sandoval MD [address] [place] [address] Endocrinology 05/24/19 Delaney Soriano NP [address] [place] [address] Cardiology 05/24/19 Toby Nelson MD [address] [place] [address] Hospitalist 12/10/19 documented as of this encounter Additional Source Comments The information contained in this document represents components of the legal health record. It is not the complete legal health record.[facility]
--- OUTSIDE RECORDS SUMMARY | 2024-10-06 09:52 | XMS_ITS | Encounter Summary ---
Author Organization [facility] Address [address] [facility] [address] [place] [address] Phone Care Team Providers Care Body Artist Name Role Phone Shawn Omer MD Primary Care Provider Kal An MD Unavailable Shawn Omer MD Unavailable Laya Sandoval MD Unavailable Delaney Soriano NP Unavailable Toby Nelson MD Unavailable [phone] Encounter Details Date Type Department Care Team (Latest Contact Info) Description 10/01/2024 Transcribe Orders [facility] Specimen Processing [address] [place] [address] Sandra Klein PA-C [address] [place] [address] [email or web address] Iron deficiency anemia, unspecified iron deficiency anemia type (Primary Dx) Social History Tobacco Use [...] 10:00 AM EDT Home [facility] Visit [facility] [address] [place], [place] [phone] Leslie Lo, RN [address] [place] [address] [email or web address] 10/08/2024 1:00 AM EDT Home [facility] [address] [place] [address] Jeanette Phillips [address] [place] [address] [email or web address] 10/11/2024 12:30 AM EDT Home [facility] Visit [facility] [address] [place] [address] Leslie Lo RN [address] [place] [address] [email or web address] 10/12/2024 2:00 AM EDT Home [facility] [address] [place] [address] Jeanette Phillips [address] [place] [address] [email or web address] 10/14/2024 Home Care Visit [facility] [address] [place] [address] Leslie Lo RN [address] [place] [address] [email or web address] 10/15/2024 1:00 AM EDT Home [facility] [address] [place] [address] Jeanette Phillips [address] [place] [address] [email or web address] 10/18/2024 Home Care Visit [facility] [address] [place] [address] Leslie Lo RN [address] [place] [address] [email or web address] 10/19/2024 1:00 AM EDT Home [facility] Visit [facility] [address] [place] [address] Jeanette Phillips [address] [place] [address] [email or web address] 10/21/2024 Home [facility] Visit [facility] [address] [place] [address] Leslie Lo RN [address] [place] [address] [email or web address] 10/22/2024 1:00 AM EDT Home Care Visit [facility] [address] [place] [address] Jacqueline Jeanette [address] [place] [address] [email or web address] 10/25/2024 12:30 AM EDT Home [facility] Visit [facility] [address] [place] [address] Leslie Lo, SAUD [address] [place] [address] [email or web address] 10/26/2024 2:00 AM EDT Home [facility] Visit [facility] [address] [place] [address] Jacqueline Jeanette [address] [place] [address] [email or web address] 10/28/2024 Home Care Visit [facility] [address] [place] [address] Leslie Lo, SAUD [address] [place] [address] [email or web address] 10/29/2024 1:00 AM EDT Home Care Visit [facility] [address] [place] [address] Jeanette Phillips [address] [place] [address] [email or web address] 11/01/2024 2:00 AM EDT Home Care Visit [facility] [address] [place] [address] Leslie Lo, SAUD [address] [place] [address] [email or web address] 11/02/2024 2:00 AM EDT Home [facility] Visit [facility] [address] [place] [address] Jeanette Phillips [address] [place] [address] [email or web address] 11/04/2024 Home Care Visit [facility] [address] [place] [address] Leslie Lo RN [address] [place] [address] [email or web address] 11/05/2024 1:00 AM EDT Home Care Visit [facility] [address] [place] [address] Jeanette Phillips [address] [place] [address] [email or web address] 11/08/2024 1:30 AM EDT Home [facility] Visit [facility] [address] [place] [address] Leslie Lo RN [address] [place] [address] [email or web address] 11/09/2024 2:00 AM EDT Home Care Visit [facility] [address] [place] [address] Jeanette Phillips [address] [place] [address] [email or web address] 11/11/2024 12:30 AM EDT Home [facility] Visit [facility] [address] [place] [address] Leslie Lo RN [address] [place] [address] [email or web address] 11/12/2024 1:00 AM EDT Home [facility] [address] [place] [address] Jeanette Phillips [address] [place] [address] [email or web address] 11/15/2024 1:30 AM EDT Home [facility] [address] [place] [address] Leslie Lo RN [address] [place] [address] [email or web address] 11/15/2024 9:00 AM EDT [facility] [phone] Suki Altman PA-C [address] [place] [address] [email or web address] 11/16/2024 2:00 AM EDT Home Care Visit [facility] [address] [place] [address] PhillipsJeanette oliva [address] [place] [address] [email or web address] 11/18/2024 Home Care Visit [facility] [address] [place] [address] Leslie Lo RN [address] [place] [address] [email or web address] 11/19/2024 1:00 AM EDT Home Care Visit [facility] [address] [place] [address] Phillips Jeanette [address] [place] [address] [email or web address] 11/22/2024 Home Care Visit [facility] [address] [place] [address] Leslie Lo RN [address] [place] [address] 11/23/2024 2:00 AM EDT Home Care Visit [facility] [address] [place] [address] Jay Jay Phillipsh [address] [place] [address] 11/25/2024 Appointment [facility] [address] [place] [address] Leslie Lo RN [address] [place] [address] 11/26/2024 1:00 AM EDT [facility] [address] [place] [address] Phillips, Jeanette [address] [place] [address] 12/22/2024 9:30 AM EST Office Visit [facility] Internal Medicine [address] [place] [address] Shawn Omer MD 40 [place] [address] 03/14/2025 8:20 AM EST Office Visit [facility] Endocrinology [place] [address] [place] [phone] Laya Sandoval MD [address] [address] documented as of this encounter Results * Vitamin B12 (10/04/2024 7:22 AM EDT) VITAMIN B12 1,107 232 - 1,245 pg/mL [facility] Blood 10/04/2024 7:22 AM EDT 10/04/2024 7:30 AM EDT [facility]OD ORDERABLES Final R esult Performing Organization Address City/[facility]/ZIP Co de Phone Number [address] [address] * Folate (10/04/2024 7:22 AM EDT) FOLIC ACID 8.2 4.2 - 19.9 ng/mL [facility] Blood 10/04/2024 7:22 AM EDT 10/04/2024 7:30 AM EDT [facility] PA-C LAB BLOOD ORDERABLES Final R esult Performing Organization Address City/[facility]/ZIP Co de Phone Number [address] [address] documented in this encounter Visit Diagnoses Diagnosis Iron deficiency anemia, unspecified iron deficiency anemia type- Primary documented in this encounter Additional Health Concerns Assessment Noted Time PHQ-2 Depression Total Score: 0 12/14/19 24 1:10 PM EST documented as of this encounter Care Teams Body Artist Relationship Specialty Start Date End Date Shawn Omer MD [address] [place] [address] PCP - General Internal Medicine 03/18/14 Kal An MD [address] [place] [address] Clean In Places Operator Endocrinology 09/02/17 Shawn Omer MD [address] [place] [address] Insurance Assigned Provider 05/17/23 Laya Sandoval MD [address] [address] [email or web address] Endocrinology 05/24/19 Delaney Soriano NP [address] [place] [address] Cardiology 05/24/19 Toby Nelson MD [address]00 [facility] [place] [address] Hospitalist 12/10/19 documented as of this encounter Additional Source Comments The information contained in this document represents components of the legal health record. It is not the complete legal health record.[facility]
--- OUTSIDE RECORDS SUMMARY | 2024-10-06 09:52 | XMS_ITS | Encounter Summary ---
Author Organization [facility] Address [address] [facility] [address] [place] [address] Phone Care Team Providers Care Computer Field Technician Name Role Phone Shawn Omer MD Primary Care Provider [phone] Brianna Rodriguez CORPORATE HEALTH CONSULTANT Unavailable Unavailable Shawn Omer MD Unavailable Markell Beltre MD Unavailable Nohemi Fuentes CORPORATE HEALTH CONSULTANT Unavailable Leann Simons CORPORATE HEALTH CONSULTANT Unavailable [phone] Kal An MD Unavailable Shawn Omer MD Unavailable Laya Sandoval MD Unavailable Delaney Soriano NP Unavailable Toby Nelson MD Unavailable [phone] Encounter Details Date Type Department Care Team (Late st Contact Info) Description 10/22/2017 Procedure Pass , Ct Scan - [address] [address] Social History Tobacco Use Types Packs/Day Years [...] Care Visit [facility] [address] [place] [address] Leslie Lo RN [address] [place] [address] 10/08/2024 1:00 AM EDT Home [facility] Visit [facility] [address] [place] [phone] Jeanette Phillips [address] [place] [address] 10/11/2024 12:30 AM EDT Home Care Visit [facility] [address] [place] [address] Leslie Lo RN [address] [place] [address] 10/12/2024 2:00 AM EDT Home [facility] [address] [place] [address] Jeanette Phillips [address] [place] [address] 10/14/2024 Home Care Visit [facility] [address] [place] [address] Leslie Lo RN [address] [place] [address] 10/15/2024 1:00 AM EDT Home Care [facility] [address] [place] [address] Jeanette Phillips [address] [place] [address] 10/18/2024 Home Care Visit [facility] [address] [place] [address] Leslie Lo, SAUD [address] [place] [address] 10/19/2024 1:00 AM EDT Home Care Visit [facility] [address] [place] [address] PhillipsJay Jay oliva[address] [address] 10/21/2024 Home [facility] [address] [place] [phone] Leslie Lo RN [address] [place] [address] 10/22/2024 1:00 AM EDT Home Care [facility] [address] [place] [address] Jay Jay Phillips[address] [address] 10/25/2024 12:30 AM EDT Home Care Visit [facility] [address] [place] [address] Leslie Lo, SAUD [address] [place] [address] 10/26/2024 2:00 AM EDT Home Care Visit [facility] [address] [place] [address] Jacqueline Jeanette[address] [address] 10/28/2024 Home Care Visit [facility] [address] [place] [address] Leslie Lo RN [address] [place] [address] 10/29/2024 1:00 AM EDT Home Care Visit [facility] [address] [place] [address] Jeanette Phillips [address] [place] [address] 11/01/2024 2:00 AM EDT Home Care Visit [facility] [address] [place] [address] Leslie Lo RN [address] [place] [address] 11/02/2024 2:00 AM EDT Home Care Visit [facility] [address] [place] [address] Jeanette Phillips [address] [place] [address] 11/04/2024 Home Care Visit [facility] [address] [place] [address] Leslie Lo RN [address] [place] [address] 11/05/2024 1:00 AM EDT Home Care Visit [facility] [address] [place] [address] Jeanette Phillips [address] [place] [address] 11/08/2024 1:30 AM EDT Home Care Visit [facility] [address] [place] [address] Leslie Lo RN [address] [place] [address] 11/09/2024 2:00 AM EDT Home Care Visit [facility] [address] [place] [address] Jeanette Phillips [address] [place] [address] 11/11/2024 12:30 AM EDT Home Care Visit [facility] [address] [place] [address] Leslie Lo RN [address] [place] [address] 11/12/2024 1:00 AM EDT Home Care Visit [facility] [address] [place] [address] Jay Jay Phillips[address] [address] 11/15/2024 1:30 AM EDT Home Care Visit [facility] [address] [place] [address] Leslie Lo RN [address] [place] [address] 11/15/2024 9:00 AM EDT Office Visit [facility] Endocrinology [address] [phone] Suki Altman PA-C [address] [place] [address] 11/16/2024 2:00 AM EDT Home Care Visit [facility] [address] [place] [address] PhillipsJeanette oliva [address] [place] [address] 11/18/2024 Home Care Visit [facility] [address] [place] [address] Leslie Lo, SAUD [address] [place] [address] 11/19/2024 1:00 AM EDT Home [facility] [address] [place] [address] PhillipsJeanette oliva [address] [place] [address] 11/22/2024 Home Care Visit [facility] [address] [place] [address] Leslie Lo, SAUD [address] [place] [address] 11/23/2024 2:00 AM EDT Home Care Visit [facility] [address] [place] [address] Jay Jay Phillips[address] [address] 11/25/2024 Appointment [facility] [address] [place] [address] Leslie Lo, SAUD [address] [place] [address] 11/26/2024 1:00 AM EDT Home Care [facility] [address] [place] [address] Phillips Jeanette [address] [place] [address] 12/22/2024 9:30 AM EST Office Visit [facility] Internal Medicine 40 [place] [address] Shawn Omer MD 40 [place] [address] [email or web address] 03/14/2025 8:20 AM EST Office Visit [facility] Endocrinology [place] [address] [place] [phone] Laya Sandoval MD [address] [place] [address] [email or web address] documented as of this encounter Visit Diagnoses Not on filedocumented in this encounter Additional Health Concerns Infection Onset Date Last Indicated Resolved Time 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 close contact 12/31/2019 12/31/2019 01/14/2020 1:23 AM EST Assessment Noted Time PHQ-2 Depression Total Score: 0 03/13/19 8:47 AM EST documented as of this encounter Care Teams Computer Field Technician Relationship Specialty Start Date End Date Shawn Omer MD 40 [place] [address] PCP - General Internal Medicine 03/18/14 Brianna Rodriguez CORPORATE HEALTH CONSULTANT [address] [place] [address] Historical LMR Provider 11/25/1605/11 Shawn Omer MD 40 [place] [address] Historical LMR Provider 11/25/16 05/23/19 Markell Beltre MD [address] [place] [address] [email or web address] Historical LMR Provider 11/25/16 Nohemi Fuentes NP [address] [address] Historical LMR Provider 11/25/16 Leann Simons NP [address] [place] [address] [email or web address] Historical LMR Provider 11/25/16 05/23/19 Kal An MD [address] [place] [address] Storage Wharfage Clerk Endocrinology 09/02/17 Shwan Omer MD [address] [place] [address] Insurance Assigned Provider 05/17/23 Laya Sandoval MD [address] [address] Endocrinology 05/24/19 Delaney Soriano NP [address] [place] [address] Cardiology 05/24/19 Toby Nelson MD [address] [place] [address] [place] [address] Hospitalist 12/10/19 documented as of this encounter Additional Source Comments The information contained in this document represents components of the legal health record. It is not the complete legal health record.[facility]
--- OUTSIDE RECORDS SUMMARY | 2024-10-06 09:52 | XMS_ITS | Encounter Summary ---
Author Organization [facility] Address [address] [facility] [address] [place] [address] Phone Care Team Providers Care Permastone Installer Name Role Phone Shawn Omer MD Primary Care Provider [phone] Kal An MD Unavailable Shawn Omer MD Unavailable Laya Sandoval MD Unavailable [phone] Delaney Soriano NP Unavailable Toby Nelson MD Unavailable [phone] Encounter Details Date Type Department Care Team (Latest Contact Info) Description 07/23/[address] [facility] [address] [place] [address] Miri Burgess PA-C [address] [place] [address] Anemia, unspecified type (Primary Dx) Social History Tobacco [...] with a working camera? Not on file Comments No Sex and Gender Information Value Date Recorded Sex Assigned at Not on file Legal Sex Female 8:48 AM EST Gender Identity Not on file Sexual Orientation Not on file documented as of this encounter Plan of Treatment Upcoming Encounters Date Type Department Care Team (Late st Contact Info) Description 10/07/2024 10:00 AM EDT Home [facility] Visit [facility] [address] [place] [phone] Leslie Lo RN [address] [place] [address] 10/08/2024 1:00 AM EDT Home Care Visit [facility] [address] [place] [phone] Jeanette Phillips [address] [place] [address] 10/11/2024 12:30 AM EDT Home Care Visit [facility] [address] [place] [phone] Leslie Lo RN [address] [place] [address] 10/12/2024 2:00 AM EDT Home Care Visit [facility] [address] [place] [phone] Jeantete Phillips [address] [place] [address] 10/14/2024 Home Care Visit [facility] [address] [place] [address] Leslie Lo RN [address] [place] [address] 10/15/2024 1:00 AM EDT Home Care Visit [facility] [address] [place] [address] Phillips Jeanette [address] [place] [address] 10/18/2024 Home Care Visit [facility] [address] [place] [address] Leslie Lo, SAUD [address] [place] [address] 10/19/2024 1:00 AM EDT Home Care Visit [facility] [address] [place] [phone] Phillips[address] [address] 10/21/2024 Home Care Visit [facility] [address] [place] [phone] Leslie Lo, SAUD [address] [place] [address] 10/22/2024 1:00 AM EDT Home Care Visit [facility] [address] [place] [address] Phillips Jeanette [address] [place] [address] 10/25/2024 12:30 AM EDT Home Care Visit [facility] [address] [place] [address] Leslie Lo, RN [address] [place] [address] 10/26/2024 2:00 AM EDT Home Care Visit [facility] [address] [place] [address] Jeanette Phillips [address] [place] [address] 10/28/2024 Home Care Visit [facility] [address] [place] [address] Leslie Lo RN [address] [place] [address] 10/29/2024 1:00 AM EDT Home Care Visit [facility] [address] [place] [phone] Jeanette Phillips [address] [place] [address] 11/01/2024 2:00 AM EDT Home Care Visit [facility] [address] [place] [address] Leslie Lo RN [address] [place] [address] 11/02/2024 2:00 AM EDT Home [facility] Visit [facility] [address] [place] [phone] Jeanette Phillips [address] [place] [address] 11/04/2024 Home Care Visit [facility] [address] [place] [address] Leslie Lo RN [address] [place] [address] 11/05/2024 1:00 AM EDT Home [facility] Visit [facility] [address] [place] [address] Jeanette Phillips [address] [place] [address] 11/08/2024 1:30 AM EDT Home Care Visit [facility] [address] [place] [phone] Leslie Lo RN [address] [place] [address] 11/09/2024 2:00 AM EDT Home [facility] Visit [facility] [address] [place] [phone] Jeanette Phillips [address] [place] [address] 11/11/2024 12:30 AM EDT [facility] [address] [place] [phone] Leslie Lo RN [address] [place] [address] 11/12/2024 1:00 AM EDT [facility] [address] [place] [phone] PhillipsJay Jay olivah [address] [place] [address] 11/15/2024 1:30 AM EDT Home Care Visit [facility] [address] [place] [phone] Leslie Lo RN [address] [place] [address] 11/15/2024 9:00 AM EDT Office Visit [facility] [address] [phone] Suki Altman PA-C [address] [place] [address] 11/16/2024 2:00 AM EDT Home Care Visit [facility] [address] [place] [address] Jeanette Phillips [address] [place] [address] 11/18/2024 Home Care Visit [facility] [address] [place] [address] Leslie Lo, SAUD [address] [place] [address] 11/19/2024 1:00 AM EDT Home Care Visit [facility] [address] [place] [phone] Jay Jay Phillips[address] [address] 11/22/2024 Home Care Visit [facility] [address] [place] [phone] Leslie Lo, SAUD [address] [place] [address] 11/23/2024 2:00 AM EDT Home Care Visit [facility] [address] [place] [address] PhillipsJeanette oliva [address] [place] [address] 11/25/2024 Appointment [facility] [address] [place] [address] Leslie Lo, SAUD [address] [place] [address] 11/26/2024 1:00 AM EDT Home [facility] Visit [facility] [address] [place] [address] Jeanette Phillips [address] [place] [address] [email or web address] 12/22/2024 9:30 AM EST Office Visit [facility] Internal Medicine [address] [place] [address] Shawn Omer MD [address] [place] [address] [email or web address] 03/14/2025 8:20 AM EST Office Visit [facility] Endocrinology [place] [address] [place] [phone] Laya Sandoval MD [address] [place] [address] [email or web address] documented as of this encounter Results * (ABNORMAL) Fecal immunochemical test x1 (FIT) (07/31/2023 8:00 AM EDT) Pathologist [facility] Immuno Fecal Occult Positive(A ) Negative [facility] Stool (Stool) 07/31/2023 8:0 0 AM EDT 07/31/2023 11:18 AM EDT us Miri Burgess PA-C BODY FLUIDS AND STOOLS ORDERABL ES Final Result [address] [address] * (ABNORMAL) Vitamin B12 (07/23/2023 9:38 AM EDT) VITAMIN B12 1,362(H) 232 - 1,245 pg/mL [facility] Blood 07/23/2023 9:38 AM EDT 07/23/2023 9:41 AM EDT us Miri Burgess PA-C LAB BLOOD ORDERABLES Final Resu lt Performing Organization Address [facility]/ZIP Co de Phone Number [address] [address] * Folate (07/23/2023 9:38 AM EDT) FOLIC ACID 5.0 4.2 - 19.9 ng/mL [facility] Blood 07/23/2023 9:38 AM EDT 07/23/2023 9:41 AM EDT us Miri Burgess PA-C LAB BLOOD ORDERABLES Final Resu lt Performing Organization Address [facility] Co de Phone Number [address] [address] * Ferritin (07/23/2023 9:38 AM EDT) FERRITIN 20 13 - 150 ug/L [facility] Blood 07/23/2023 9:38 AM EDT 07/23/2023 9:41 AM EDT us Miri Burgess PA-C LAB BLOOD ORDERABLES Final Resu lt Performing Organization Address [facility] Co de Phone Number [address] [address] * Iron and iron binding capacity (07/23/2023 9:38 AM EDT) IRON 84 30 - 160 ug/dL [facility] IRON BINDING CAPACITY 415 228 - 428 ug/dL [facility] TRANSFERRIN SATURAT. 20 15 - 50 % [facility] Blood 07/23/2023 9:38 AM EDT 07/23/2023 9:41 AM EDT us Miri Burgess PA-C LAB BLOOD ORDERABLES Final Resu lt [address] [address] * Immunoglobulin A (07/23/2023 9:38 AM EDT) IgA 138 70 - 400 mg/dL [facility] Blood 07/23/2023 9:38 AM EDT 07/23/2023 9:41 AM EDT us Miri Burgess PA-C LAB BLOOD ORDERABLES Final Resu lt Performing Organization Address [facility] Co de Phone Number [address] [address] * (ABNORMAL) CBC (07/23/2023 9:38 AM EDT) WBC 7.16 4.00 - 11.00 K/uL [facility] RBC 4.80 3.72 - 5.30 M/uL [facility] HGB 12.9 11.4 - 15.9 g/dL [facility] HCT 41.4 34.2 - 46.8 % [facility] PLT 288 140 - 430 K/uL [facility] MCV 86.3 78.0 - 97.0 fL [facility] MCH 26.9 25.0 - 33.0 pg [facility] MCHC 31.2(L) 32.0 - 36.0 g/dL [facility] RDW 15.8 11.0 - 16.0 % [facility] MPV 9.5 8.4 - 12.8 fl [facility] Blood 07/23/2023 9:38 AM EDT 07/23/2023 9:41 AM EDT us Miri Burgess PA-C LAB BLOOD ORDERABLES Final Resu lt Performing Organization Address [facility]/ZIP Co de Phone Number [address] [address] * Tissue transglutaminase IgA (07/23/2023 9:38 AM EDT) TTG IGA ANTIBODY <1.2 <4.0 (Negative) U/mL [facility] Blood 07/23/2023 9:38 AM EDT 07/23/2023 9:41 AM EDT us Miri Burgess PA-C LAB BLOOD ORDERABLES Final Resu lt [facility] [address] [place] [address] documented in this encounter Visit Diagnoses Diagnosis Anemia, unspecified type- Primary documented in this encounter Additional Health Concerns Assessment Noted Time PHQ-2 Depression Total Score: 0 12/12/19 23 1:09 PM EDT documented as of this encounter Care Teams Permastone Installer Relationship Specialty Start Date End Date Shawn Omer MD [address] [place] [address] [email or web address] - General Internal Medicine 03/18/14 Kal An MD [address] [place] [address] Supervisor [employer] Endocrinology 09/02/17 Shawn Omer MD [address] [place] [address] [email or web address] Insurance Assigned Provider 05/17/23 Laya Sandoval MD [address] [address] [email or web address] Endocrinology 05/24/19 Delaney Soriano NP [address] [place] [address] Cardiology 05/24/19 Toby Nelson MD [address] [facility] [place] [address] Hospitalist 12/10/19 documented as of this encounter Additional Source Comments The information contained in this document represents components of the legal health record. It is not the complete legal health record.[facility]
--- OUTSIDE RECORDS SUMMARY | 2024-10-06 09:52 | XMS_ITS | Encounter Summary ---
Author Organization [facility] Address [address] [employer] [facility] [address] [place] [address] Phone Care Team Providers Care International Trade Manager Name Role Phone Shawn Omer MD Primary Care Provider [phone] Kal An MD Unavailable Shawn Omer MD Unavailable Laya Sandoval MD Unavailable Delaney Soriano NP Unavailable Toby Nelson MD Unavailable [phone] Reason for Visit * Auth/Cert (Routine) Specialty Diagnoses / Procedures Referred By Contac t Referred To Contact Referral ID Status Reason Start Date Expiration Date Visits Re quested Visits Authorized [id number] 1 1 Encounter Details Date Type Department Care Team (Late st Contact Info) Description 10/05/2024 Home Care Visit [facility] [address] [place] [address] Elda Davis, PT [address] [place], [place] [phone] [email or web address] ENCOUNTER Social History Tobacco Use Types Packs/Day Years [...] [facility] [address] [place] [address] Leslie Lo, SAUD [address] [place] [address] 10/08/2024 1:00 AM EDT Home [facility] Visit [facility] [address] [place], [place] [phone] Jeanette Phillips [address] [place] [address] 10/11/2024 12:30 AM EDT Home Care Visit [facility] [address] [place] [address] Leslie Lo RN [address] [place] [address] 10/12/2024 2:00 AM EDT Home Care Visit [facility] [address] [place] [address] Jeanette Phillips [address] [place] [address] 10/14/2024 Home Care Visit [facility] [address] [place] [address] Leslie Lo RN [address] [place] [address] 10/15/2024 1:00 AM EDT Home Care Visit [facility] [address] [place] [phone] Jeanette Phillips [address] [place] [address] 10/18/2024 Home Care Visit [facility] [address] [place] [phone] Leslie Lo RN [address] [place] [address] 10/19/2024 1:00 AM EDT Home Care Visit [facility] [address] [place] [address] Jeanette Phillips [address] [place] [address] 10/21/2024 Home Care Visit [facility] [address] [place] [address] Leslie Lo RN [address] [place] [address] 10/22/2024 1:00 AM EDT Home Care Visit [facility] [address] [place] [address] [address]ette[address] [address] 10/25/2024 12:30 AM EDT Home Care Visit [facility] [address] [place] [phone] Leslie Lo RN [address] [place] [address] 10/26/2024 2:00 AM EDT Home Care Visit [facility] [address] [place] [phone] [address]ette[address] [address] 10/28/2024 Home Care Visit [facility] [address] [place] [phone] Leslie Lo RN [address] [place] [address] 10/29/2024 1:00 AM EDT Home Care Visit [facility] [address] [place] [address] [address] Jeanette[address] [address] 11/01/2024 2:00 AM EDT Home Care Visit [facility] [address] [place] [address] Leslie Lo RN [address] [place] [address] 11/02/2024 2:00 AM EDT Home Care Visit [facility] [address] [place] [address] Jeanette Phillips [address] [place] [address] 11/04/2024 Home Care Visit [facility] [address] [place] [address] Leslie Lo, SAUD [address] [place] [address] 11/05/2024 1:00 AM EDT Home Care Visit [facility] [address] [place] [address] PhillipsJay Jay oliva[address] [address] 11/08/2024 1:30 AM EDT Home Care Visit [facility] [address] [place] [address] Leslie Lo RN [address] [place] [address] 11/09/2024 2:00 AM EDT Home Care Visit [facility] [address] [place] [address] Jacqu[address] Jeanette[address] [address] 11/11/2024 12:30 AM EDT Home Care Visit [facility] [address] [place] [address] Leslie Lo, SAUD [address] [place] [address] 11/12/2024 1:00 AM EDT Home Care Visit [facility] [address] [place] [address] Jeanette Phillips [address] [place] [address] 11/15/2024 1:30 AM EDT [facility] [address] [place] [address] Leslie Lo, SAUD [address] [place] [address] 11/15/2024 9:00 AM EDT Office Visit [facility] [address] [phone] Suki Altman PA-C [address] [place] [address] 11/16/2024 2:00 AM EDT Home Care Visit [facility] [address] [place] [address] Jeanette Phillips [address] [place] [address] 11/18/2024 Home Care Visit [facility] [address] [place] [address] Leslie Lo RN [address] [place] [address] 11/19/2024 1:00 AM EDT Home Care Visit [facility] [address] [place] [address] Jeanette Phillips [address] [place] [address] 11/22/2024 Home Care Visit [facility] [address] [place] [address] Leslie Lo RN [address] [place] [address] 11/23/2024 2:00 AM EDT Home Care Visit [facility] [address] [place] [address] Jay Jay Phillipsh [address] [place] [address] 11/25/2024 Appointment [facility] [address] [place] [address] Leslie Lo RN [address] [place] [address] 11/26/2024 1:00 AM EDT Home Care Visit [facility] [address] [place] [address] Phillips, Jeanette[address] [address] 12/22/2024 9:30 AM EST Office Visit [facility] Internal Medicine [address] [place] [address] Shawn Omer MD [address] [place] [address] 03/14/2025 8:20 AM EST Office Visit [facility]ocrinology [place] [address] [place] [phone] Laya Sandoval MD [address] [place] [address] documented as of this encounter Visit Diagnoses Not on filedocumented in this encounter Additional Health Concerns Assessment Noted Time PHQ-2 Depression Total Score: 0 12/14/19 24 1:10 PM EST documented as of this encounter Care Teams International Trade Manager Relationship Specialty Start Date End Date Shawn Omer MD [address] [place] [address] [email or web address] PCP - General Internal Medicine 03/18/14 Kal An MD [address] [place] [address] Healthcare Administrative Assistant Endocrinology 09/02/17 Shawn Omer MD [address] [place] [address] [email or web address] Insurance Assigned Provider 05/17/23 Laya Sandoval MD [address] [place] [address] Endocrinology 05/24/19 Delaney Soriano NP [address] [place] [address] Cardiology 05/24/19 Toby Nelson MD [address] [facility] [place] [address] Hospitalist 12/10/19 documented as of this encounter Additional Source Comments The information contained in this document represents components of the legal health record. It is not the complete legal health record.[facility]
--- OUTSIDE RECORDS SUMMARY | 2024-10-06 09:52 | XMS_ITS | Encounter Summary ---
Author Organization [facility] Address [address] [email or web address] [facility] [address] [place] [address] Phone Care Team Providers Care Councillor Aboriginal Land [employer] Name Role Phone Shawn Omer MD Primary Care Provider [phone] Kal An MD Unavailable [phone] Shawn Omer MD Unavailable Laya Sandoval MD Unavailable Delaney Soriano NP Unavailable Toby Nelson MD Unavailable [phone] Reason for Visit * Reason Onset Date Comments VNA Update 10/01/2024 Encounter Details Date Type Department Care Team (Late st Contact Info) Description 10/01/2024 Telephone [facility] Internal Medicine [address] [place], [place] [phone] Tessy Dinh, SAUD [address] [place], [place] [phone] VNA Update Social History Tobacco Use Types Packs/Day Years [...] Progress Notes * Tessy Dinh RN - 10/05/2024 7:15 AM EDT Pt aware of information. * Tessy Dinh RN - 10/04/2024 9:38 AM EDT LVM for Yanet to call back. Working hours are Friday-Friday. * Tessy Dinh RN - 10/04/2024 9:37 AM EDT See gateway encounter, message sent to pt. * Shawn Omer MD - 10/01/2024 6:21 PM EDT Okay to use the ketoconazole on the skin. Not to be used on genitals. Okay to stay on the Levothyroxine 112 mcg 6 days a week. Patient can continue on the Entresto 24-26 mg as given by the hospital. Dose will need to be increased at a later time. She can take the mag citrate gummies with the same dose of mag-ox but should stop it if she develops diarrhea. Find out what dose she is taking of the mag-citrate. * Tessy Dinh RN - 10/01/2024 5:06 PM EDT Spoke to Yanet, advised provider has not yet seen this message, will call back Friday. She states understanding. * Tessy Dinh RN - 10/01/2024 5:01 PM EDT Yanet called and LVM. She is wondering about the rash. Also mentions that her med list says levothyroxine 88mcg, and she has 112mcg at home, which she is taking 6 days/week. She is wondering about Entresto 49-51mg. States the hospital had 24-26mg. Pt is also wondering if she can take mag citrate, with the same dose of mag-ox. She has mag-citrategummies, and they are easier to take. * Tessy Dinh RN - 10/01/2024 3:45 PM EDT LVM for Yanet to call back. * Tessy Dinh RN - 10/01/2024 3:42 PM EDT Yanet, [facility] VNA nurse called and LVM. States pt was admitted to services today. States pt has a luz marina her back/backside. Yanet thinks it possibly looks fungal. States she also has a rash on her inner thighs, which definitely looks fungal. She has uploaded pictures to [employer]. Pt has ketoconazole cream at home, wondering if she can apply this to the rash. States she also has some questions re: pt's medications. documented in this encounter Plan of Treatment Upcoming Encounters Date Type Department Care Team (Late st Contact Info) Description 10/07/2024 10:00 AM EDT Home Care Visit [facility] [address] [place] [address] Leslie Lo RN [address] [place] [address] [email or web address] 10/08/2024 1:00 AM EDT Home Care Visit [facility] [address] [place] [address] Jeanette Phillips [address] [place] [address] [email or web address] 10/11/2024 12:30 AM EDT Home [facility] Visit [facility] [address] [place] [address] Leslie Lo RN [address] [place] [address] [email or web address] 10/12/2024 2:00 AM EDT Home Care Visit [facility] [address] [place] [address] Phillips, Jeanette[address] [address] [email or web address] 10/14/2024 Home Care Visit [facility] [address] [place] [phone] Leslie Lo, SAUD [address] [place] [address] [email or web address] 10/15/2024 1:00 AM EDT Home Care Visit [facility] [address] [place] [phone] Phillips Jeanette[address] [address] [email or web address] 10/18/2024 Home Care Visit [facility] [address] [place] [phone] Leslie Lo RN [address] [place] [address] [email or web address] 10/19/2024 1:00 AM EDT [facility] [address] [place] [phone] PhillipsJay Jay oliva[address] [address] [email or web address] 10/21/2024 Home Care Visit [facility] [address] [place] [address] Leslie Lo, SAUD [address] [place] [address] [email or web address] 10/22/2024 1:00 AM EDT Home Care Visit [facility] [address] [place] [address] Jacqueline Jeanette [address] [place] [address] [email or web address] 10/25/2024 12:30 AM EDT [facility] [address] [place] [address] Leslie Lo RN [address] [place] [address] [email or web address] 10/26/2024 2:00 AM EDT Home [facility] [address] [place] [address] Jeanette Phillips [address] [place] [address] [email or web address] 10/28/2024 Home Care Visit [facility] [address] [place] [address] Leslie Lo RN [address] [place] [address] [email or web address] 10/29/2024 1:00 AM EDT Home Care Visit [facility] [address] [place] [phone] Jacqueline Jeanette[address] [address] [email or web address] 11/01/2024 2:00 AM EDT Home [facility] [address] [place] [phone] Leslie Lo RN [address] [place] [address] [email or web address] 11/02/2024 2:00 AM EDT Home Care Visit [facility] [address] [place] [phone] Jay Jay Phillips[address] [address] [email or web address] 11/04/2024 Home Care Visit [facility] [address] [place] [address] Leslie Lo, SAUD [address] [place] [address] [email or web address] 11/05/2024 1:00 AM EDT Home Care Visit [facility] [address] [place] [address] Phillips Jeanette [address] [place] [address] [email or web address] 11/08/2024 1:30 AM EDT Home Care Visit [facility] [address] [place] [phone] Leslie Lo RN [address] [place] [address] [email or web address] 11/09/2024 2:00 AM EDT Home Care Visit [facility] [address] [place] [phone] Phillips Jeanette[address] [address] [email or web address] 11/11/2024 12:30 AM EDT Home Care Visit [facility] [address] [place] [phone] Leslie Lo RN [address] [place] [address] [email or web address] 11/12/2024 1:00 AM EDT Home [facility] [address] [place] [address] Jacqueline Jeanette [address] [place] [address] [email or web address] 11/15/2024 1:30 AM EDT Home [facility] [address] [place] [phone] Leslie Lo, SAUD [address] [place] [address] [email or web address] 11/15/2024 9:00 AM EDT Office Visit [facility] Endocrinology [address] [phone] Suki Altman PA-C [address] [place] [address] [email or web address] 11/16/2024 2:00 AM EDT Home Care Visit [facility] [address] [place] [address] Jeanette Phillips [address] [place] [address] [email or web address] 11/18/2024 Home Care Visit [facility] [address] [place] [address] Leslie Lo RN [address] [place] [address] [email or web address] 11/19/2024 1:00 AM EDT Home Care Visit [facility] [address] [place] [address] Jeanette Phillips [address] [place] [address] [email or web address] 11/22/2024 Home Care Visit [facility] [address] [place] [address] Leslie Lo RN [address] [place] [address] [email or web address] 11/23/2024 2:00 AM EDT Home [facility] [address] [place] [address] Jeanette Phillips [address] [place] [address] [email or web address] 11/25/2024 Appointment [facility] [address] [place] [address] Leslie Lo RN [address] [place] [address] [email or web address] 11/26/2024 1:00 AM EDT Home Care Visit [facility] [address] [place] [address] Jeanette Phillips [address] [place] [address] 12/22/2024 9:30 AM EST Office Visit [facility] Internal Medicine [address] [place] [address] Shawn Omer MD [address] [place] [address] 03/14/2025 8:20 AM EST Office Visit [facility] Endocrinology [place] [address] [place] [address] Laya Sandoval MD [address] [place] [address] documented as of this encounter Visit Diagnoses Not on filedocumented in this encounter Additional Health Concerns Assessment Noted Time PHQ-2 Depression Total Score: 0 12/14/19 24 1:10 PM EST documented as of this encounter Care Teams Councillor Aboriginal Land [employer] Relationship Specialty Start Date End Date Shawn Omer MD [address] [place] [address] PCP - General Internal Medicine 03/18/14 Kal An MD [address] [place] [address] Security Systems Engineer Endocrinology 09/02/17 Shawn Omer MD [address] [place] [address] Insurance Assigned Provider 05/17/23 Laya Sandoval MD [address] [place] [address] Endocrinology 05/24/19 Delaney Soriano NP [address] [place] [address] Cardiology 05/24/19 Toby Nelson MD [address] [facility] [place] [address] Hospitalist 12/10/19 documented as of this encounter Additional Source Comments The information contained in this document represents components of the legal health record. It is not the complete legal health record.[facility]
--- OUTSIDE RECORDS SUMMARY | 2024-10-06 09:52 | XMS_ITS | Encounter Summary ---
Author Organization [facility] Address [address] [facility] [address] [place] [address] Phone Care Team Providers Care Pre School Manager Name Role Phone Shawn Omer MD Primary Care Provider [phone] Brianna Rodriguez PUBLIC HEALTH SPECIALIST Unavailable Unavailable Shawn Omer MD Unavailable [phone] Markell Beltre MD Unavailable [phone] Nohemi Fuentes PUBLIC HEALTH SPECIALIST Unavailable Leann Simons PUBLIC HEALTH SPECIALIST Unavailable [phone] Kal An MD Unavailable Shawn Omer MD Unavailable Laya Sandoval MD Unavailable Delaney Soriano NP Unavailable Toby Nelson MD Unavailable [phone] Reason for Referral * MRI/CAT Scan - Closed Specialty Diagnoses / Procedures Referred By Mary Alice diaz Referred To Contact Radiology Diagnoses Diarrhea, unspecified type Procedures CT Abdomen/Pelvis Kal Ramirez MD Phone: tel: fax: mailto: Referral ID Status Reason Start Date Expiration Date Visits Re quested Visits Authorized [id number] Closed 10/22/2017 10/22/2018 1 1 Encounter Details Date Type Department Care Team ([facility] Contact Info) Description 10/22/2017 Ancillary Orders Virtual Department [address] [place] [address] Kal Ramirez MD [address] [place] [address] Diarrhea, unspecified type Social History Tobacco Use Types [...] Care Visit [facility] [address] [place] [phone] Leslie Lo, SAUD [address] [place] [address] 10/08/2024 1:00 AM EDT Home Care Visit [facility] [address] [place] [address] Jeanette Phillips [address] [place] [address] 10/11/2024 12:30 AM EDT Home Care Visit [facility] [address] [place] [address] Leslie Lo RN [address] [place] [address] 10/12/2024 2:00 AM EDT Home Care Visit [facility] [address] [place] [address] Jeanette Phillips [address] [place] [address] 10/14/2024 Home Care Visit [facility] [address] [place] [address] Leslie Lo RN [address] [place] [address] 10/15/2024 1:00 AM EDT Home Care Visit [facility] [address] [place] [address] Jeanette Phillips [address] [place] [address] 10/18/2024 Home Care Visit [facility] [address] [place] [phone] Leslie Lo RN [address] [place] [address] 10/19/2024 1:00 AM EDT Home Care Visit [facility] [address] [place] [phone] Jeanette Phillips [address] [place] [address] 10/21/2024 Home Care Visit [facility] [address] [place] [address] Leslie Lo, SAUD [address] [place] [address] 10/22/2024 1:00 AM EDT Home Care Visit [facility] [address] [place] [address] Jeanette Phillips [address] [place] [address] 10/25/2024 12:30 AM EDT Home Care Visit [facility] [address] [place] [address] Leslie Lo RN [address] [place] [address] 10/26/2024 2:00 AM EDT Home Care Visit [facility] [address] [place] [address] Jeanette Phillips [address] [place] [address] 10/28/2024 Home Care Visit [facility] [address] [place] [address] Leslie Lo RN [address] [place] [address] 10/29/2024 1:00 AM EDT Home Care Visit [facility] [address] [place] [address] Jay Jay Phillipsh [address] [place] [address] 11/01/2024 2:00 AM EDT Home Care Visit [facility] [address] [place] [address] Leslie Lo RN [address] [place] [address] 11/02/2024 2:00 AM EDT Home Care Visit [facility] [address] [place] [address] Jeanette Phillips [address] [place] [address] 11/04/2024 Home Care Visit [facility] [address] [place] [address] Leslie Lo RN [address] [place] [address] 11/05/2024 1:00 AM EDT Home Care Visit [facility] [address] [place] [address] Jeanette Phillips [address] [place] [address] 11/08/2024 1:30 AM EDT Home Care Visit [facility] [address] [place] [phone] Leslie Lo RN [address] [place] [address] 11/09/2024 2:00 AM EDT Home Care Visit [facility] [address] [place] [phone] Jeanette Phillips [address] [place] [address] 11/11/2024 12:30 AM EDT Home Care Visit [facility] [address] [place] [phone] Leslie Lo RN [address] [place] [address] 11/12/2024 1:00 AM EDT Home Care Visit [facility] [address] [place] [phone] Jeanette Phillips [address] [place] [address] 11/15/2024 1:30 AM EDT Home Care Visit [facility] [address] [place] [address] Leslie Lo, SAUD [address] [place] [address] 11/15/2024 9:00 AM EDT Office Visit [facility] [address] [address] Suki Altman PA-C [address] [place] [address] 11/16/2024 2:00 AM EDT Home Care Visit [facility] [address] [place] [phone] Jeanette Phillips [address] [place] [address] 11/18/2024 Home Care Visit [facility] [address] [place] [address] Leslie Lo RN [address] [place] [address] 11/19/2024 1:00 AM EDT Home Care Visit [facility] [address] [place] [phone] Jeanette Phillips [address] [place] [address] 11/22/2024 Home Care Visit [facility] [address] [place] [address] Leslie Lo, SAUD [address] [place] [address] 11/23/2024 2:00 AM EDT Home Care Visit [facility] [address] [place] [address] Jeanette Phillips [address] [place] [address] 11/25/2024 Appointment [facility] [address] [place] [address] Leslie Lo RN [address] [place] [address] 11/26/2024 1:00 AM EDT Home Care Visit [facility] [address] [place] [address] PhillipsJeanette [address] [place] [address] 12/22/2024 9:30 AM EST Office Visit [facility] Internal Medicine [address] [place] [address] Shawn Omer MD [address] [place] [address] [email or web address] 03/14/2025 8:20 AM EST Office Visit [facility] Endocrinology [place] [address] [place] [phone] Laya Sandoval MD [address] [place] [address] [email or web address] documented as of this encounter Results * CT ABDOMEN/PELVIS WITH CONTRAST (11/20/2017 10:52 AM EDT) Anatomical Region Laterality Modality Abdomen, Pelvis Computed Tomogra phy 11/20/2017 2:03 PM EDT Addenda Addendum by Rosanne Valdes MD on 02/05/2018 12:54 PM EST Addendum: Prior CT imaging from [facility] reviewed, CT abdomen and pelvis dated 02/09/2014 and 01/13/2014. Regarding bilateral adrenal nodules, right adrenal gland 1.1 cm nodule and left adrenal gland 2.1 cm nodule both appear stable in size compared with 02/09/2014 and 01/13/2014 CTs. Stability is reassuring that these likely represent adenomas. Impressions 11/20/2017 2:54 PM EDT 1. Limited CT enterography, with suboptimal opacification of the small bowel. No focal mass or mucosal abnormality. 2. Colonic diverticulosis. 3. Gastric band which appears non inflated. 4. Bilateral adrenal nodules, not meeting CT criteria for adenomas. Does this patient have any relevant history to suspect adrenal metastases? They could still represent lipid poor adenomas. Dedicated adrenal MRI is recommended. 5. Mixed density mass in the right anterior abdominal wall subcutaneous fat, most likely a focal nodular area of scarring/fat necrosis related to prior surgical incision. TOTAL CTDIvol: 17.00 mGy POS - [id number] Edited by: Rosamaria Figueroa on 11/20/2017 2:45 PM Narrative 11/20/2017 2:54 PM EDT HISTORY: CT ENTEROGRAPHY EPISODIC DIARRHEA RULE OUT SMALL BOWEL LESION COMPARISON: None. TECHNIQUE: CT imaging of the abdomen and pelvis with oral and IV contrast. 100 mL of Omnipaque 350 contrast given intravenously. Volumen oral contrast, 900 and mL. Helical axial images obtained with reconstructed coronal and sagittal images. Radiation dose control: Exam performed with automated exposure control or iterative reconstruction to minimize radiation exposure. FINDINGS: Included portion of the heart is normal in size. The lung bases included are clear. There is a gastric band just distal to the gastroesophageal junction which appears to be not narrowing the stomach/not inflated. There is a catheter which courses from the band to the anterior abdominal wall with the port in the right lateral mid abdominal subcutaneous fat. Minimal Volumen contrast opacifies the bowel, less than optimal for evaluation for small bowel mucosal lesions. No focal bowel wall thickening. Normal caliber of the small bowel. There is diffuse colonic diverticulosis. The right side of the colon is redundant. The appendix is not clearly identified. There is no ascites, adenopathy, free air or inflammatory fat stranding in the abdomen and pelvis. The liver, gallbladder, biliary system, and pancreas are normal. There are bilateral adrenal nodules, on the right measuring 1.1 cm and on the left measuring 2.1 cm; Hounsfield units average 55. There are a few tiny renal cortical cysts. There is no hydronephrosis. Normal caliber of the abdominal aorta with minimal calcification. Within the right lower abdominal wall there is a mixed density mass consisting of soft tissue density, fat density and coarse calcifications. This measures 7.8 x 3.7 x 5.0 cm. Linear bands of scarring track away from this mass, also with coarse calcifications. Findings most likely represent fat necrosis/scarring related to prior incision. The urinary bladder is normal. The uterus is absent. No pelvic masses present. No suspicious focal bone lesions or acute fractures. Procedure Note Rosanne Valdes MD - 11/20/2017 HISTORY: CT ENTEROGRAPHY EPISODIC DIARRHEA RULE OUT SMALL BOWEL LESION COMPARISON: None. TECHNIQUE: CT imaging of the abdomen and pelvis with oral and IV contrast. 100 mL ofOmnipaque 350 contrast given intravenously. Volumen oral contrast, 900 andmL. Helical axial images obtained with reconstructed coronal and sagittalimages. Radiation dose control: Exam performed with automated exposure control oriterative reconstruction to minimize radiation exposure. FINDINGS: Included portion of the heart is normal in size. The lung bases includedare clear. There is a gastric band just distal to the gastroesophageal junction whichappears to be not narrowing the stomach/not inflated. There is a catheterwhich courses from the band to the anterior abdominal wall with the portin the right lateral mid abdominal subcutaneous fat. Minimal Volumencontrast opacifies the bowel, less than optimal for evaluation for smallbowel mucosal lesions. No focal bowel wall thickening. Normal caliber ofthe small bowel. There is diffuse colonic diverticulosis. The right sideof the colon is redundant. The appendix is not clearly identified. There is no ascites, adenopathy, free air or inflammatory fat stranding inthe abdomen and pelvis. The liver, gallbladder, biliary system, and pancreas are normal. There arebilateral adrenal nodules, on the right measuring 1.1 cm and on the leftmeasuring 2.1 cm; Hounsfield units average 55. There are a few tiny renalcortical cysts. There is no hydronephrosis. Normal caliber of theabdominal aorta with minimal calcification. Within the right lower abdominal wall there is a mixed density massconsisting of soft tissue density, fat density and coarse calcifications.This measures 7.8 x 3.7 x 5.0 cm. Linear bands of scarring track away fromthis mass, also with coarse calcifications. Findings most likely representfat necrosis/scarring related to prior incision. The urinary bladder is normal. The uterus is absent. No pelvic massespresent. No suspicious focal bone lesions or acute fractures. IMPRESSION: 1. Limited CT enterography, with suboptimal opacification of the smallbowel. No focal mass or mucosal abnormality. 2. Colonic diverticulosis. 3. Gastric band which appears non inflated. 4. Bilateral adrenal nodules, not meeting CT criteria for adenomas. Doesthis patient have any relevant history to suspect adrenal metastases? Theycould still represent lipid poor adenomas. Dedicated adrenal MRI isrecommended. 5. Mixed density mass in the right anterior abdominal wall subcutaneousfat, most likely a focal nodular area of scarring/fat necrosis related toprior surgical incision. TOTAL CTDIvol: 17.00 mGy POS - [id number] Edited by: Rosamaria Figueroa on 11/20/2017 2:45 PM Kal Ramirez MD IMG CT ABD/PELVIS Edited Resul t - Final documented in this encounter Visit Diagnoses Diagnosis Diarrhea, unspecified type Diarrhea, unspecified type documented in this encounter Additional Health Concerns Infection Onset Date Last Indicated Resolved Time 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 close contact 12/31/2019 12/31/2019 01/14/2020 1:23 AM EST Assessment Noted Time PHQ-2 Depression Total Score: 0 03/13/19 18 8:47 AM EST documented as of this encounter Care Teams Pre School Manager Relationship Specialty Start Date End Date Shawn Omer MD [address] [place] [address] [email or web address] PCP - General Internal Medicine 03/18/14 Brianna Rodriguez NP [address] [place] [address] Historical LMR Provider 11/25/1605/11 Shawn Omer MD [address] [place] [address] [email or web address] Historical LMR Provider 11/25/16 05/23/19 Markell Beltre MD [address] [place] [address] [email or web address] Historical LMR Provider 11/25/16 Nohemi Fuentes, JEFF [address] [place] [address] Historical LMR Provider 11/25/16 Leann Simons NP [address] [place] [address] [email or web address] Historical LMR Provider 11/25/16 05/23/19 Kal An MD [address] [place] [address] Station Mechanic Endocrinology 09/02/17 Shawn Omer MD [address] [place] [address] [email or web address] Insurance Assigned Provider 05/17/23 Laya Sandoval MD [address] [address] [email or web address] Endocrinology 05/24/19 Delaney Soriano NP [address] [place] [address] Cardiology 05/24/19 Toby Nelson MD [address] [facility] [place] [address] Hospitalist 12/10/19 documented as of this encounter Additional Source Comments The information contained in this document represents components of the legal health record. It is not the complete legal health record.[facility]
--- OUTSIDE RECORDS SUMMARY | 2024-10-06 09:52 | XMS_ITS | Encounter Summary ---
Author Organization [facility] Address [address] [facility] [address] [place] [address] Phone Care Team Providers Care Hand Pleater Name Role Phone Shawn Omer MD Primary Care Provider [phone] Kal An MD Unavailable [phone] Shawn Omer MD Unavailable Laya Sandoval MD Unavailable Delaney Soriano NP Unavailable Toby Nelson MD Unavailable [phone] Reason for Visit * Reason Onset Date Comments Syncope 03/05/2021 Encounter Details Date Type Department Care Team (Late st Contact Info) Description 03/05/2021 Telephone [facility] [address] [place] [phone] Mary Anne Maloney, EDUCATION COURSES SALES REPRESENTATIVE [address] [place] [address] [email or web address] Social History Tobacco Use Types Packs/Day Years [...] as of this encounter Progress Notes * Josse Simon RN - 03/09/2021 3:53 PM EST Patient decided to try Nurtec. RN prepped and sent Med to provider for Co-sign * Elsie Bond MD - 03/09/2021 8:18 AM EST This report has been acknowledged. * Josse Simon RN - 03/08/2021 3:10 PM EST RN called and spoke to patient and her Claudio Discussed Dr Bond's recommendation for Nurtec or Ubrelvy as drugs to have on hand and take if needed Patient asking to get info on both drugs so she can make a decision on which she may choose to try RN sent patient drug info handouts on both medications via portal as requested Patient to get back in touch after she reads info. * Elsie Bond MD - 03/08/2021 7:45 AM EST Emgality only has 1 strength. I can prescribe Ubrelvy or Nurtec to take as needed for these episodes. If she is willing, I can send the prescription. * Josse Simon RN - 03/07/2021 9:40 AM EST Patient called Triage line restating events that lead to syncopal episode at home on 03/01/2021 Patient has been on Emgality for Somatic migraines (she gets severe abdominal pain with her episodes) which lead to the syncope and trip to ED for IV fluids due to hypotension (vaso-vagal reaction) This is the only episode she has had since starting Emgality in November 2020 She is wondering if her Emgality should be adjusted upwards, to reduce any further incidences. She has had no further episodes of syncope. Please advise * Mary Anne Maloney LPN - 03/05/2021 10:45 AM EST Patient called nurse triage line. Dr. Bond Patient. Last OV: 01/15/21 Future OV: 09/03/21 Patient sent gateway message 03/02/21 Please see below. In my last virtual appointment with you in January you stated you were cautiously optimistic when I told you how well I was doing since beginning the Emgality in November 2020. I was so excited! Reality hit me on , March 01, 2021. Event started as abdominal pain (I refer to as abdominal migraine) with huge loss of fluid through diarrhea. BP bottomed out at 60 over 30. 911 ambulance to ED. Discharged 2 hours later when fluids were on board which resulted in a stable BP. So, what to do next? Is it possible to increase the dose of Emgality? Next dose due March 18, 2021. Please advise. documented in this encounter Plan of Treatment Upcoming Encounters Date Type Department Care Team (Late st Contact Info) Description 10/07/2024 10:00 AM EDT Home Care Visit [facility] [address] [place], [place] [phone] Leslie Lo, SAUD [address] [place] [address] 10/08/2024 1:00 AM EDT Home Care Visit [facility] [address] [place], [place] [phone] Jeanette Phillips [address] [place] [address] 10/11/2024 12:30 AM EDT Home Care Visit [facility] [address] [place] [address] Leslie Lo RN [address] [place] [address] [email or web address] 10/12/2024 2:00 AM EDT Home Care Visit [facility] [address] [place] [address] Jeanette Phillips [address] [place] [address] [email or web address] 10/14/2024 Home Care Visit [facility] [address] [place] [address] Leslie Lo RN [address] [place] [address] [email or web address] 10/15/2024 1:00 AM EDT Home [facility] Visit [facility] [address] [place] [phone] Jeanette Phillips [address] [place] [address] [email or web address] 10/18/2024 Home Care Visit [facility] [address] [place] [phone] Leslie Lo RN [address] [place] [address] [email or web address] 10/19/2024 1:00 AM EDT Home Care Visit [facility] [address] [place] [address] Jeanette Phillips [address] [place] [address] [email or web address] 10/21/2024 Home Care Visit [facility] [address] [place] [address] Leslie Lo RN [address] [place] [address] [email or web address] 10/22/2024 1:00 AM EDT Home Care Visit [facility] [address] [place] [address] Phillips Jeanette [address] [place] [address] [email or web address] 10/25/2024 12:30 AM EDT Home [facility] [address] [place] [address] Leslie Lo, SAUD [address] [place] [address] [email or web address] 10/26/2024 2:00 AM EDT Home Care Visit [facility] [address] [place] [phone] Jacqueline Jeanette [address] [place] [address] [email or web address] 10/28/2024 Home Care Visit [facility] [address] [place] [phone] Leslie Lo, SAUD [address] [place] [address] [email or web address] 10/29/2024 1:00 AM EDT Home Care Visit [facility] [address] [place] [address] Jeanette Phillips [address] [place] [address] [email or web address] 11/01/2024 2:00 AM EDT Home [facility] Visit [facility] [address] [place] [address] Leslie Lo, SAUD [address] [place] [address] [email or web address] 11/02/2024 2:00 AM EDT Home [facility] [address] [place] [address] Jeanette Phillips [address] [place] [address] [email or web address] 11/04/2024 Home Care Visit [facility] [address] [place] [address] Leslie Lo RN [address] [place] [address] [email or web address] 11/05/2024 1:00 AM EDT Home [facility] [address] [place] [address] Jeanette Phillips [address] [place] [address] [email or web address] 11/08/2024 1:30 AM EDT Home [facility] [address] [place] [address] Leslie Lo RN [address] [place] [address] [email or web address] 11/09/2024 2:00 AM EDT Home Care Visit [facility] [address] [place] [phone] Jeanette Phillips [address] [place] [address] [email or web address] 11/11/2024 12:30 AM EDT Home [facility] [address] [place] [address] Leslie Lo RN [address] [place] [address] [email or web address] 11/12/2024 1:00 AM EDT Home [facility] [address] [place] [address] Jeanette Phillips [address] [place] [address] [email or web address] 11/15/2024 1:30 AM EDT [facility] [address] [place] [address] Leslie Lo RN [address] [place] [address] [email or web address] 11/15/2024 9:00 AM EDT Office Visit [facility]ology [facility] [phone] Suki Altman PA-C [address] [place] [address] [email or web address] 11/16/2024 2:00 AM EDT Home Care Visit [facility] [address] [place] [address] Phillips Jeanette [address] [place] [address] [email or web address] 11/18/2024 Home Care Visit [facility] [address] [place] [address] Leslie Lo RN [address] [place] [address] [email or web address] 11/19/2024 1:00 AM EDT Home Care Visit [facility] [address] [place] [address] Jeanette Phillips [address] [place] [address] [email or web address] 11/22/2024 Home Care Visit [facility] [address] [place] [address] Leslie Lo RN [address] [place] [address] 11/23/2024 2:00 AM EDT Home Care Visit [facility] [address] [place] [address] Jeanette Phillips [address] [place] [address] 11/25/2024 Appointment [facility] [address] [place] [address] Leslie Lo RN [address] [place] [address] 11/26/2024 1:00 AM EDT Home [facility] [address] [place] [phone] Jay Jay Phillipsh [address] [place] [address] 12/22/2024 9:30 AM EST Office Visit [facility] Internal Medicine [address] [place] [address] Shawn Omer MD [address] [place] [address] 03/14/2025 8:20 AM EST Office Visit [facility] Endocrinology [place] [address] [place] [phone] Laya Sandoval MD [address] [address] documented as of this encounter Visit Diagnoses Diagnosis Other migraine without status migrainosus, not intractable- Primary documented in this encounter Additional Health Concerns Assessment Noted Time PHQ-2 Depression Total Score: 0 04/12/19 21 9:12 AM EST documented as of this encounter Care Teams Hand Pleater Relationship Specialty Start Date End Date Shawn Omer MD [address] [place] [address] PCP - General Internal Medicine 03/18/14 Kal An MD [address] [place] [address] Travel Registered Nurse [facility] 09/02/17 Shawn Omer MD [address] [place] [address] [email or web address] Insurance Assigned Provider 05/17/23 Laya Sandoval MD [address] [address] Endocrinology 05/24/19 Delaney Soriano NP [address] [place] [address] Cardiology 05/24/19 Toby Nelson MD [address] [facility] [place] [address] Hospitalist 12/10/19 documented as of this encounter Additional Source Comments The information contained in this document represents components of the legal health record. It is not the complete legal health record.[facility]
--- OUTSIDE RECORDS SUMMARY | 2024-10-06 09:52 | XMS_ITS | Encounter Summary ---
Author Organization [facility] Address [address] [facility] [address] [place] [address] Phone Care Team Providers Care Software Qa System Specialist Name Role Phone Shawn Omer MD Primary Care Provider [phone] Kal An MD Unavailable Shawn Omer MD Unavailable [phone] Laya Sandoval MD Unavailable Delaney Soriano NP Unavailable Toby Nelson MD Unavailable [phone] Reason for Visit * Auth/Cert (Routine) Specialty Diagnoses / Procedures Referred By Contac t Referred To Contact Referral ID Status Reason Start Date Expiration Date Visits Re quested Visits Authorized [id number] 1 1 Encounter Details Date Type Department Care Team (Late st Contact Info) Description 10/05/2024 Home Care Visit [facility] [address] [place] [address] Jeanette Phillips [address] [place] [address] [email or web address] CASE COMMUNICATION Social History Tobacco Use Types Packs/Day Years [...] on file documented as of this encounter Miscellaneous Notes * Case Communication - Jeanette Phillips - 10/05/2024 3:28 PM EDTclient canceled visit due to having appoitments. documented in this encounter Plan of Treatment Upcoming Encounters Date Type Department Care Team (Late st Contact Info) Description 10/07/2024 10:00 AM EDT Home [facility] Visit [facility] [address] [place] [address] Leslie Lo, SAUD [address] [place] [address] 10/08/2024 1:00 AM EDT Home [facility] Visit [facility] [address] [place] [address] Jeanette Phillips [address] [place] [address] [email or web address] 10/11/2024 12:30 AM EDT [facility] [address] [place] [address] Leslie Lo RN [address] [place] [address] [email or web address] 10/12/2024 2:00 AM EDT [facility] [address] [place] [phone] Jeanette Phillips [address] [place] [address] [email or web address] 10/14/2024 Home Care Visit [facility] [address] [place] [phone] Leslie Lo RN [address] [place] [address] [email or web address] 10/15/2024 1:00 AM EDT Home Care Visit [facility] [address] [place] [phone] Jeanette Phillips [address] [place] [address] [email or web address] 10/18/2024 Home Care Visit [facility] [address] [place] [address] Leslie Lo RN [address] [place] [address] [email or web address] 10/19/2024 1:00 AM EDT Home Care Visit [facility] [address] [place] [address] Jeanette Phillips [address] [place] [address] [email or web address] 10/21/2024 [facility] [address] [place] [phone] Leslie Lo, SAUD [address] [place] [address] 10/22/2024 1:00 AM EDT Home [facility] [address] [place] [phone] Jeanette Phillips [address] [place] [address] [email or web address] 10/25/2024 12:30 AM EDT Home [facility] [address] [place] [phone] Leslie Lo, SAUD [address] [place] [address] [email or web address] 10/26/2024 2:00 AM EDT Home [facility] [address] [place] [phone] Jeanette Phillips [address] [place] [address] [email or web address] 10/28/2024 Home Care Visit [facility] [address] [place] [phone] Leslie Lo, SAUD [address] [place] [address] [email or web address] 10/29/2024 1:00 AM EDT Home [facility] [address] [place] [phone] PhillipsJay Jay [address] [address] 11/01/2024 2:00 AM EDT Home Care Visit [facility] [address] [place] [address] Leslie Lo, SAUD [address] [place] [address] [email or web address] 11/02/2024 2:00 AM EDT Home Care Visit [facility] [address] [place] [address] Jeanette Phillips [address] [place] [address] [email or web address] 11/04/2024 Home Care Visit [facility] [address] [place] [address] Leslie Lo RN [address] [place] [address] [email or web address] 11/05/2024 1:00 AM EDT Home Care Visit [facility] [address] [place] [address] Jeanette Phillips [address] [place] [address] [email or web address] 11/08/2024 1:30 AM EDT Home Care Visit [facility] [address] [place] [address] Leslie Lo, SAUD [address] [place] [address] [email or web address] 11/09/2024 2:00 AM EDT Home Care Visit [facility] [address] [place] [address] Jeanette Phillips [address] [place] [address] [email or web address] 11/11/2024 12:30 AM EDT Home Care Visit [facility] [address] [place] [address] Leslie Lo RN [address] [place] [address] [email or web address] 11/12/2024 1:00 AM EDT Home Care Visit [facility] [address] [place], [place] [phone] Jeanette Phillips [address] [place] [address] [email or web address] 11/15/2024 1:30 AM EDT Home Care Visit [facility] [address] [place], [place] [phone] Leslie Lo RN [address] [place] [address] [email or web address] 11/15/2024 9:00 AM EDT Office Visit [facility] Endocrinology [address] [address] Suki Altman PA-C [address] [place] [address] [email or web address] 11/16/2024 2:00 AM EDT Home Care Visit [facility] [address] [place] [address] Jeanette Phillips [address] [place] [address] [email or web address] 11/18/2024 Home Care Visit [facility] [address] [place], [place] [phone] Leslie Lo RN [address] [place] [address] [email or web address] 11/19/2024 1:00 AM EDT Home Care Visit [facility] [address] [place], [place] [phone] Jeanette Phillips [address] [place] [address] 11/22/2024 Home Care Visit [facility] [address] [place] [address] Leslie Lo RN [address] [place] [address] 11/23/2024 2:00 AM EDT Home Care Visit [facility] [address] [place] [address] PhillipsJeanette oliva [address] [place] [address] 11/25/2024 Appointment [facility] [address] [place] [address] Leslie Lo RN [address] [place] [address] 11/26/2024 1:00 AM EDT Home [facility] [address] [place] [phone] Jeanette Phillips [address] [place] [address] 12/22/2024 9:30 AM EST Office Visit [facility] Internal Medicine [address] [place] [address] Shawn Omer MD [address] [place] [address] 03/14/2025 8:20 AM EST Office Visit [facility] Endocrinology [place] [address] [place] [phone] Laya Sandoval MD [address] [place] [address] documented as of this encounter Visit Diagnoses Not on filedocumented in this encounter Additional Health Concerns Assessment Noted Time PHQ-2 Depression Total Score: 0 12/14/19 24 1:10 PM EST documented as of this encounter Care Teams Software Qa System Specialist Relationship Specialty Start Date End Date Shawn Omer MD [address] [place] [address] PCP - General Internal Medicine 03/18/14 Kal An MD [address] [place] [address] [employer] Endocrinology 09/02/17 Shawn Omer MD [address] [place] [address] Insurance Assigned Provider 05/17/23 Laya Sandoval MD [address] [address] Endocrinology 05/24/19 Delaeny Soriano NP [address] [place] [address] Cardiology 05/24/19 Toby Nelson MD [address] [facility] [place] [address] Hospitalist 12/10/19 documented as of this encounter Additional Source Comments The information contained in this document represents components of the legal health record. It is not the complete legal health record.[facility]
--- OUTSIDE RECORDS SUMMARY | 2024-10-06 09:52 | XMS_ITS | Encounter Summary ---
Author Organization [facility] Address [address] [facility] [address] [place] [address] Phone Care Team Providers Care Tanning Wheel Operator Name Role Phone Shawn Omer MD Primary Care Provider Brianna Rodriguez CATALOGUE LIBRARIAN Unavailable Unavailable Shawn Omer MD Unavailable Markell Beltre MD Unavailable [phone] Nohemi Fuentes CATALOGUE LIBRARIAN Unavailable Leann Simons CATALOGUE LIBRARIAN Unavailable [phone] Kal An MD Unavailable Shawn Omer MD Unavailable Laya Sandoval MD Unavailable Delaney Soriano NP Unavailable Toby Nelson MD Unavailable [phone] Encounter Details Date Type Department Care Team (Late st Contact Info) Description 04/27/2019 Transcribe Orders [facility] Laboratory [address] [place] [address] Elsie Bond MD [address] [place] [address] [email or web address] Social History Tobacco Use Types Packs/Day Years [...] [facility] Visit [facility] [address] [place] [phone] Leslie Lo RN [address] [place] [address] [email or web address] 10/08/2024 1:00 AM EDT [facility] [address] [place] [phone] Jeanette Phillips [address] [place] [address] [email or web address] 10/11/2024 12:30 AM EDT [facility] [address] [place] [phone] Leslie Lo RN [address] [place] [address] [email or web address] 10/12/2024 2:00 AM EDT Home Care Visit [facility] [address] [place] [phone] Jeanette Phillips [address] [place] [address] [email or web address] 10/14/2024 Home Care Visit [facility] [address] [place] [phone] Leslie Lo RN [address] [place] [address] [email or web address] 10/15/2024 1:00 AM EDT Home Care Visit [facility] [address] [place] [address] PhillipsJeanette oliva [address] [place] [address] [email or web address] 10/18/2024 [facility] [address] [place] [address] Leslie Lo, SAUD [address] [place] [address] [email or web address] 10/19/2024 1:00 AM EDT Home [facility] [address] [place] [address] Phillips Jeanette [address] [place] [address] [email or web address] 10/21/2024 Home Care [facility] [address] [place] [address] Leslie Lo, SAUD [address] [place] [address] [email or web address] 10/22/2024 1:00 AM EDT Home [facility] [address] [place] [address] Jeanette Phillips [address] [place] [address] [email or web address] 10/25/2024 12:30 AM EDT Home [facility] [address] [place] [address] Leslie Lo, SAUD [address] [place] [address] [email or web address] 10/26/2024 2:00 AM EDT Home [facility] [address] [place] [address] PhillipsJay Jay olivah [address] [place] [address] [email or web address] 10/28/2024 Home Care Visit [facility] [address] [place] [address] Leslie Lo RN [address] [place] [address] [email or web address] 10/29/2024 1:00 AM EDT Home Care Visit [facility] [address] [place] [address] PhillipsJeanette oliva [address] [place] [address] [email or web address] 11/01/2024 2:00 AM EDT Home Care Visit [facility] [address] [place] [phone] Leslie Lo RN [address] [place] [address] [email or web address] 11/02/2024 2:00 AM EDT Home Care Visit [facility] [address] [place] [phone] PhillipsJeanette oliva [address] [place] [address] [email or web address] 11/04/2024 Home Care Visit [facility] [address] [place] [address] Leslie Lo RN [address] [place] [address] [email or web address] 11/05/2024 1:00 AM EDT Home Care Visit [facility] [address] [place] [address] Phillips Jeanette [address] [place] [address] 11/08/2024 1:30 AM EDT Home Care Visit [facility] [address] [place] [phone] Leslie Lo RN [address] [place] [address] [email or web address] 11/09/2024 2:00 AM EDT Home Care [facility] [address] [place] [address] Phillips Jeanette [address] [place] [address] [email or web address] 11/11/2024 12:30 AM EDT Home Care Visit [facility] [address] [place] [phone] Leslie Lo RN [address] [place] [address] [email or web address] 11/12/2024 1:00 AM EDT Home Care Visit [facility] [address] [place] [phone] PhillipsJay Jay ol[address] [address] [email or web address] 11/15/2024 1:30 AM EDT Home Care Visit [facility] [address] [place] [phone] Leslie Lo RN [address] [place] [address] [email or web address] 11/15/2024 9:00 AM EDT Office Visit [facility] Endocrinology [address] [phone] Suki Altman PA-C [address] [place] [address] 11/16/2024 2:00 AM EDT Home Care [facility] [address] [place] [address] PhillipsJeanette oliva [address] [place] [address] [email or web address] 11/18/2024 Home [facility] [address] [place] [address] Leslie Lo, SAUD [address] [place] [address] [email or web address] 11/19/2024 1:00 AM EDT Home [facility] [address] [place] [address] PhillipsJay Jay [address] [address] [email or web address] 11/22/2024 Home Care [facility] [address] [place] [address] Leslie Lo, SAUD [address] [place] [address] [email or web address] 11/23/2024 2:00 AM EDT Home [facility] [address] [place] [address] Phillips, Jeanette [address] [place] [address] [email or web address] 11/25/2024 Appointment [facility] [address] [place] [address] Leslie Lo, SAUD [address] [place] [address] [email or web address] 11/26/2024 1:00 AM EDT Home [facility] [address] [place] [address] Jeanette Phillips [address] [place] [address] 12/22/2024 9:30 AM EST Office Visit [facility] Internal Medicine [address] [place] [address] Shawn Omer MD 40 [place], [place] [phone] 03/14/2025 8:20 AM EST Office Visit [facility] Endocrinology [place] [address] [place] [phone] Laya Sandoval MD [address] [place] [address] documented as of this encounter Visit Diagnoses Not on filedocumented in this encounter Additional Health Concerns Infection Onset Date Last Indicated Resolved Time 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 close contact 12/31/2019 12/31/2019 01/14/2020 1:23 AM EST Assessment Noted Time PHQ-2 Depression Total Score: 2 12/02/19 19 8:37 AM EDT documented as of this encounter Care Teams Tanning Wheel Operator Relationship Specialty Start Date End Date Shawn Omer MD 40 [place] [address] PCP - General Internal Medicine 03/18/14 Brianna Rodriguez NP [address] [place] [address] Historical LMR Provider 11/25/1605/11 Shawn Omer MD 40 [place] [address] Historical LMR Provider 11/25/16 05/23/19 Markell Beltre MD [address] [place] [address] [email or web address] Historical LMR Provider 11/25/16 Nohemi Fuentes, JEFF [address] [place] [address] Historical LMR Provider 11/25/16 Leann Simons NP [address] [place] [address] [email or web address] Historical LMR Provider 11/25/16 05/23/19 Kal An MD [address] [place] [address] Optical Instrument Assembly Supervisor Endocrinology 09/02/17 Shawn Omer MD [address] [place] [address] [email or web address] Insurance Assigned Provider 05/17/23 Laya Sandoval MD [address] [address] Endocrinology 05/24/19 Delaney Soriano NP [address] [place] [address] Cardiology 05/24/19 Toby Nelson MD [address] [facility] [place] [address] Hospitalist 12/10/19 documented as of this encounter Additional Source Comments The information contained in this document represents components of the legal health record. It is not the complete legal health record.[facility]
--- OUTSIDE RECORDS SUMMARY | 2024-10-06 09:52 | XMS_ITS | Encounter Summary ---
Author Organization [facility] Address [address] [facility] [address] [place] [address] Phone Care Team Providers Care Purchasing Expeditor Name Role Phone Shawn Omer MD Primary Care Provider [phone] Kal An MD Unavailable Shawn Omer MD Unavailable Laya Sandoval MD Unavailable [phone] Delaney Soriano NP Unavailable Toby Nelson MD Unavailable [phone] Encounter Details Date Type Department Care Team (Late st Contact Info) Description 06/30/2019 Transcribe Orders [facility] Laboratory [address] [place] [address] Laya Sandoval MD [address] [address] [email or web address] Social History Tobacco Use Types Packs/Day Years [...] [facility] [address] [place] [phone] Leslie Lo, SAUD [address] [place] [address] 10/08/2024 1:00 AM EDT Home Care [facility] [address] [place] [phone] Jay Jay [address] [address] 10/11/2024 12:30 AM EDT Home [facility] [address] [place] [phone] Leslie Lo RN [address] [place] [address] 10/12/2024 2:00 AM EDT Home [facility] [address] [place] [phone] Jay Jay Phillips[address] [address] 10/14/2024 Home Care Visit [facility] [address] [place] [phone] Leslie Lo, SAUD [address] [place] [address] 10/15/2024 1:00 AM EDT Home [facility] [address] [place] [phone] Jeanette Phillips [address] [place] [address] 10/18/2024 Home Care Visit [facility] [address] [place] [address] Leslie Lo RN [address] [place] [address] 10/19/2024 1:00 AM EDT Home Care [facility] [address] [place] [address] Jeanette Phillips [address] [place] [address] 10/21/2024 Home Care Visit [facility] [address] [place] [address] Leslie Lo RN [address] [place] [address] 10/22/2024 1:00 AM EDT Home Care Visit [facility] [address] [place] [phone] Jeanette Phillips [address] [place] [address] 10/25/2024 12:30 AM EDT Home Care Visit [facility] [address] [place] [phone] Leslie Lo RN [address] [place] [address] 10/26/2024 2:00 AM EDT Home Care Visit [facility] [address] [place] [phone] Jeanette Phillips [address] [place] [address] 10/28/2024 Home Care Visit [facility] [address] [place] [address] LoLeslie gonzalez RN [address] [place] [address] 10/29/2024 1:00 AM EDT Home [facility] [address] [place] [address] PhillipsJay Jay olivah [address] [place] [address] 11/01/2024 2:00 AM EDT Home [facility] [address] [place] [address] Leslie Lo RN [address] [place] [address] 11/02/2024 2:00 AM EDT Home Care Visit [facility] [address] [place] [address] [address] [address] 11/04/2024 Home Care Visit [facility] [address] [place] [address] Leslie Lo RN [address] [place] [address] 11/05/2024 1:00 AM EDT Home Care [facility] [address] [place] [address] Jacqueline Jeanette [address] [place] [address] 11/08/2024 1:30 AM EDT Home [facility] [address] [place] [address] Leslie Lo, SAUD [address] [place] [address] 11/09/2024 2:00 AM EDT Home Care Visit [facility] [address] [place] [address] Phillips Jeanette [address] [place] [address] 11/11/2024 12:30 AM EDT Home Care Visit [facility] [address] [place] [address] Leslie Lo RN [address] [place] [address] 11/12/2024 1:00 AM EDT [facility] [address] [place] [address] [address] [address] 11/15/2024 1:30 AM EDT Home Care Visit [facility] [address] [place] [phone] Leslie Lo RN [address] [place] [address] 11/15/2024 9:00 AM EDT Office Visit [facility] Endocrinology [address] [phone] Suki Altman PA-C [address] [place] [address] 11/16/2024 2:00 AM EDT Home Care Visit [facility] [address] [place] [address] Jeanette Phillips [address] [place] [address] 11/18/2024 Home Care Visit [facility] [address] [place] [address] Leslie Lo RN [address] [place] [address] 11/19/2024 1:00 AM EDT Home Care Visit [facility] [address] [place] [address] Jeanette Phillips [address] [place] [address] 11/22/2024 Home Care Visit [facility] [address] [place] [address] Leslie Lo RN [address] [place] [address] 11/23/2024 2:00 AM EDT Home Care Visit [facility] [address] [place] [phone] Jeanette Phillips [address] [place] [address] 11/25/2024 Appointment [facility] [address] [place] [address] Leslie Lo RN [address] [place] [address] 11/26/2024 1:00 AM EDT Home Care Visit [facility] [address] [place] [phone] Jeanette Phillips [address] [place] [address] 12/22/2024 9:30 AM EST Office Visit [facility] [place] [facility] [address] [place] [address] Shawn Omer MD 40 [place] [address] 03/14/2025 8:20 AM EST Office Visit [facility] Endocrinology [place] [address] [place] [phone] Laya Sandoval MD [address] [place] [address] documented as of this encounter Visit Diagnoses Not on filedocumented in this encounter Additional Health Concerns Infection Onset Date Last Indicated Resolved Time 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 close contact 12/31/2019 12/31/2019 01/14/2020 1:23 AM EST Assessment Noted Time PHQ-2 Depression Total Score: 2 12/02/19 8:37 AM EDT documented as of this encounter Care Teams Purchasing Expeditor Relationship Specialty Start Date End Date Shawn Omer MD [address] [place] [address] PCP - General Internal Medicine 03/18/14 Kal An MD [address] [place] [address] Studio Control Operator Endocrinology 09/02/17 Shawn Omer MD [address] [place] [address] Insurance Assigned Provider 05/17/23 Laya Sandoval MD [address] [place] [address] Endocrinology 05/24/19 Delaney Soriano NP [address] [place] [address] Cardiology 05/24/19 Toby Nelson MD [address]00 [facility] [place] [address] Hospitalist 12/10/19 documented as of this encounter Additional Source Comments The information contained in this document represents components of the legal health record. It is not the complete legal health record.[facility]
--- OUTSIDE RECORDS SUMMARY | 2024-10-06 09:52 | XMS_ITS | Encounter Summary ---
Author Organization [facility] Address 399 [facility] [address] [place] [address] Phone Care Team Providers Care Cigar Head Perforator Name Role Phone Shawn Omer MD Primary Care Provider [phone] Kal An MD Unavailable [phone] Shawn Omer MD Unavailable [phone] Laya Sandoval MD Unavailable Delaney Soriano NP Unavailable Toby Nelson MD Unavailable [phone] Encounter Details Date Type Department Care Team (Late st Contact Info) Description 10/01/2024 Plan of Care Documentation [facility] [address] [place] [address] Social History Tobacco Use Types Packs/Day Years [...] Care Visit [facility] [address] [place] [address] Leslie Lo RN [address] [place] [address] [email or web address] 10/08/2024 1:00 AM EDT Home Care Visit [facility] [address] [place] [address] Jeanette Phillips [address] [place] [address] [email or web address] 10/11/2024 12:30 AM EDT Home Care Visit [facility] [address] [place] [address] Leslie Lo RN [address] [place] [address] [email or web address] 10/12/2024 2:00 AM EDT [facility] [address] [place] [address] Jeanette Phillips [address] [place] [address] [email or web address] 10/14/2024 Home Care Visit [facility] [address] [place] [address] Leslie Lo RN [address] [place] [address] [email or web address] 10/15/2024 1:00 AM EDT Home [facility] [address] [place] [address] Jeanette Phillips [address] [place] [address] [email or web address] 10/18/2024 Home Care Visit [facility] [address] [place] [address] Leslie Lo RN [address] [place] [address] [email or web address] 10/19/2024 1:00 AM EDT Home [facility] [address] [place] [phone] Jeanette Phillips [address] [place] [address] [email or web address] 10/21/2024 Home Care Visit [facility] [address] [place] [address] Leslie Lo RN [address] [place] [address] [email or web address] 10/22/2024 1:00 AM EDT Home Care [facility] [address] [place] [address] Jeanette Phillips [address] [place] [address] [email or web address] 10/25/2024 12:30 AM EDT Home [facility] [address] [place] [address] Leslie Lo RN [address] [place] [address] [email or web address] 10/26/2024 2:00 AM EDT Home [facility] [address] [place] [address] Jacqueline Jeanette [address] [place] [address] [email or web address] 10/28/2024 Home Care Visit [facility] [address] [place] [address] Leslie Lo RN [address] [place] [address] [email or web address] 10/29/2024 1:00 AM EDT Home Care Visit [facility] [address] [place] [phone] [address] [address] [email or web address] 11/01/2024 2:00 AM EDT Home [facility] [address] [place] [address] Leslie Lo RN [address] [place] [address] [email or web address] 11/02/2024 2:00 AM EDT Home [facility] [address] [place] [address] Jeanette Phillips [address] [place] [address] [email or web address] 11/04/2024 Home Care Visit [facility] [address] [place] [address] Leslie Lo RN [address] [place] [address] [email or web address] 11/05/2024 1:00 AM EDT Home [facility] [address] [place] [address] Jeanette Phillips [address] [place] [address] [email or web address] 11/08/2024 1:30 AM EDT Home Care Visit [facility] [address] [place] [address] Leslie Lo RN [address] [place] [address] [email or web address] 11/09/2024 2:00 AM EDT Home [facility] [address] [place] [address] Jay Jay Phillips[address] [address] [email or web address] 11/11/2024 12:30 AM EDT Home [facility] [address] [place] [address] Leslie Lo RN [address] [place] [address] [email or web address] 11/12/2024 1:00 AM EDT Home Care Visit [facility] [address] [place] [address] Jay Jay Phillips[address] [address] [email or web address] 11/15/2024 1:30 AM EDT Home Care Visit [facility] [address] [place] [address] Leslie Lo RN [address] [place] [address] [email or web address] 11/15/2024 9:00 AM EDT Office Visit [facility] [address] [phone] Suki Altman PA-C [address] [place] [address] [email or web address] 11/16/2024 2:00 AM EDT Home Care Visit [facility] [address] [place] [address] [address]qu[address] [address] [email or web address] 11/18/2024 Home Care Visit [facility] [address] [place] [address] Leslie Lo RN [address] [place] [address] [email or web address] 11/19/2024 1:00 AM EDT Home Care Visit [facility] [address] [place] [address] Jay Jay Phillipsh [address] [place] [address] [email or web address] 11/22/2024 Home Care Visit [facility] [address] [place] [address] Leslie Lo, SAUD [address] [place] [address] [email or web address] 11/23/2024 2:00 AM EDT Home Care Visit [facility] [address] [place] [address] Jeanette Phillips [address] [place] [address] 11/25/2024 Appointment [facility] [address] [place] [address] Leslie Lo RN [address] [place] [address] 11/26/2024 1:00 AM EDT Home Care Visit [facility] [address] [place] [address] Jay Jay Phillipsh [address] [place] [address] 12/22/2024 9:30 AM EST Office Visit [facility] Internal Medicine [address] [place] [address] Shawn Omer MD [address] [place] [address] 03/14/2025 8:20 AM EST Office Visit [facility] Endocrinology [place] [address] [place] [phone] Laya Sandoval MD [address] [place] [address] documented as of this encounter Visit Diagnoses Not on filedocumented in this encounter Additional Health Concerns Assessment Noted Time PHQ-2 Depression Total Score: 0 12/14/19 24 1:10 PM EST documented as of this encounter Care Teams Cigar Head Perforator Relationship Specialty Start Date End Date Shawn Omer MD [address] [place] [address] PCP - General Internal Medicine 03/18/14 Kal An MD [address] [place] [address] Clinical Reimbursement Specialist Endocrinology 09/02/17 Shawn Omer MD [address] [place] [address] Insurance Assigned Provider 05/17/23 Laya Sandoval MD [address] [address] Endocrinology 05/24/19 Delaney Soriano NP [address] [place] [address] Cardiology 05/24/19 Toby Nelson MD 3300 [facility] [place] [address] Hospitalist 12/10/19 documented as of this encounter Additional Source Comments The information contained in this document represents components of the legal health record. It is not the complete legal health record.[facility]
--- OUTSIDE RECORDS SUMMARY | 2024-10-06 09:53 | XMS_ITS | Encounter Summary ---
Author Organization [facility] Address [address] [employer] [facility] [address] [place] [address] Phone Care Team Providers Care Software Test Developer Name Role Phone Shawn Omer MD Primary Care Provider [phone] Kal An MD Unavailable Shawn Omer MD Unavailable Laya Sandoval MD Unavailable Delaney Soriano NP Unavailable Toby Nelson MD Unavailable [phone] Encounter Details Date Type Department Care Team (Late st Contact Info) Description 10/20/2023 Procedure Pass [facility] Endoscopy Admitting Dept Virtual Department [address] [place] [address] Social History Tobacco Use Types Packs/Day Years [...] Visit [facility] [address] [place] [phone] Leslie Lo, SAUD [address] [place] [address] 10/08/2024 1:00 AM EDT Home Care Visit [facility] [address] [place] [phone] Jay Jay Phillips[address] [address] 10/11/2024 12:30 AM EDT Home Care Visit [facility] [address] [place] [phone] Leslie Lo RN [address] [place] [address] 10/12/2024 2:00 AM EDT Home Care Visit [facility] [address] [place] [address] Jay Jay Phillips[address] [address] 10/14/2024 Home Care Visit [facility] [address] [place] [phone] Leslie Lo, SAUD [address] [place] [address] 10/15/2024 1:00 AM EDT Home Care Visit [facility] [address] [place] [phone] PhillipsJeanette oliva [address] [place] [address] 10/18/2024 Home Care Visit [facility] [address] [place] [address] Leslie Lo RN [address] [place] [address] 10/19/2024 1:00 AM EDT Home Care Visit [facility] [address] [place] [address] PhillipsJeanette oliva [address] [place] [address] 10/21/2024 Home Care Visit [facility] [address] [place] [address] Leslie Lo RN [address] [place] [address] 10/22/2024 1:00 AM EDT Home Care Visit [facility] [address] [place] [phone] PhillipsJeanette oliva [address] [place] [address] 10/25/2024 12:30 AM EDT Home Care Visit [facility] [address] [place] [address] Leslie Lo RN [address] [place] [address] 10/26/2024 2:00 AM EDT Home Care Visit [facility] [address] [place] [address] PhillipsJay Jay olivah [address] [place] [address] 10/28/2024 Home Care Visit [facility] [address] [place] [address] Leslie Lo RN [address] [place] [address] 10/29/2024 1:00 AM EDT Home Care Visit [facility] [address] [place] [address] Jeanette Phillips [address] [place] [address] 11/01/2024 2:00 AM EDT Home Care Visit [facility] [address] [place] [address] Leslie Lo RN [address] [place] [address] 11/02/2024 2:00 AM EDT Home Care Visit [facility] [address] [place] [address] Jeanette Phillips [address] [place] [address] 11/04/2024 Home Care Visit [facility] [address] [place] [address] Leslie Lo RN [address] [place] [address] 11/05/2024 1:00 AM EDT Home Care Visit [facility] [address] [place] [address] Jeanette Phillips [address] [place] [address] 11/08/2024 1:30 AM EDT Home Care Visit [facility] [address] [place] [address] Leslie Lo RN [address] [place] [address] 11/09/2024 2:00 AM EDT Home Care Visit [facility] [address] [place] [address] Jeanette Phillips [address] [place] [address] 11/11/2024 12:30 AM EDT Home Care Visit [facility] [address] [place] [address] Leslie Lo RN [address] [place] [address] 11/12/2024 1:00 AM EDT Home Care Visit [facility] [address] [place] [address] Jeanette Phillips [address] [place] [address] 11/15/2024 1:30 AM EDT Home Care Visit [facility] [address] [place] [address] Leslie Lo RN [address] [place] [address] 11/15/2024 9:00 AM EDT Office Visit [facility] Endocrinology [address] [phone] Suki Altman PA-C [address] [place] [address] 11/16/2024 2:00 AM EDT Home Care Visit [facility] [address] [place] [address] PhillipsJeanette oliva [address] [place] [address] 11/18/2024 Home Care Visit [facility] [address] [place] [address] Leslie Lo RN [address] [place] [address] 11/19/2024 1:00 AM EDT Home Care Visit [facility] [address] [place] [address] PhillipsJeanette oliva [address] [place] [address] 11/22/2024 Home Care Visit [facility] [address] [place] [address] Leslie Lo RN [address] [place] [address] 11/23/2024 2:00 AM EDT Home Care Visit [facility] [address] [place] [address] PhillipsJay Jay olivah [address] [place] [address] 11/25/2024 Appointment [facility] [address] [place] [address] Leslie Lo RN [address] [place] [address] 11/26/2024 1:00 AM EDT Home Care Visit [facility] [address] [place] [address] Jacqueline Jeanette [address] [place] [address] [email or web address] 12/22/2024 9:30 AM EST Office Visit [facility] Internal Medicine [address] [place] [address] Shawn Omer MD [address] [place] [address] [email or web address] 03/14/2025 8:20 AM EST Office Visit [facility] Endocrinology [place] [address] [place] [address] Laya Sandoval MD [address] [place] [phone] [email or web address] documented as of this encounter Visit Diagnoses Not on filedocumented in this encounter Additional Health Concerns Assessment Noted Time PHQ-2 Depression Total Score: 0 12/12/19 23 1:09 PM EDT documented as of this encounter Care Teams Software Test Developer Relationship Specialty Start Date End Date Shawn Omer MD [address] [place] [address] [email or web address] PCP - General Internal Medicine 03/18/14 Kal An MD [address] [place] [address] Childcare Aide Endocrinology 09/02/17 Shawn Omer MD [address] [place] [address] [email or web address] Insurance Assigned Provider 05/17/23 Laya Sandoval MD [address] [place] [address] [email or web address] Endocrinology 05/24/19 Delaney Soriano NP [address] [place] [address] Cardiology 05/24/19 Toby Nelson MD [address] [facility] [place] [address] Hospitalist 12/10/19 documented as of this encounter Additional Source Comments The information contained in this document represents components of the legal health record. It is not the complete legal health record.[facility]
--- OUTSIDE RECORDS SUMMARY | 2024-10-06 09:53 | XMS_ITS | Encounter Summary ---
Author Organization [facility] Address [address] [address] Phone Care Team Providers Care Ed Manager Name Role Phone Shawn Omer MD Primary Care Provider Brianna Rodriguez TIRE TESTER Unavailable Unavailable Shawn mOer MD Unavailable Markell Beltre MD Unavailable Nohemi Fuentes TIRE TESTER Unavailable [phone] Leann Simons TIRE TESTER Unavailable [phone] Kal An MD Unavailable Shawn Omer MD Unavailable Laya Sandoval MD Unavailable Delaney Soriano NP Unavailable Toby Nelson MD Unavailable [phone] Reason for Referral * MRI/CAT Scan - Closed Specialty Diagnoses / Procedures Referred By Mary Alice diaz Referred To Contact Procedures CT Abdomen/Pelvis Outside (No Interpretation) System, Provider Not In, PhD [address] [address] Referral ID Status Reason Start Date Expiration Date Visits Re quested Visits Authorized [id number] Closed 01/23/2018 01/23/2019 1 1 * MRI/CAT Scan - Closed Specialty Diagnoses / Procedures Referred By Contac t Referred To Contact Procedures CT Chest Outside (No Interpretation) System, Provider Not In, PhD [facility] [address] [address] Referral ID Status Reason Start Date Expiration Date Visits Re quested Visits Authorized [id number] Closed 01/23/2018 01/23/2019 1 1 * MRI/CAT Scan - Closed Specialty Diagnoses / Procedures Referred By Contac t Referred To Contact Procedures CT Abdomen/Pelvis Outside (No Interpretation) System, Provider Not In, PhD [facility] [address] [address] Referral ID Status Reason Start Date Expiration Date Visits Re quested Visits Authorized [id number] Closed 01/23/2018 01/23/2019 1 1 Encounter Details Date Type Department Care Team (Late Contact Info) Description 01/23/2018 Ancillary Orders [facility],Outside Imaging [address] [place] [address] System, Provider Not In, PhD [facility] [address] [address] Social History Tobacco Use Types Packs/Day Years [...] 10/07/2024 10:00 AM EDT [facility] [address] [place] [phone] Leslie Lo, SAUD [address] [place] [address] 10/08/2024 1:00 AM EDT [facility] [address] [place] [phone] PhillipsJeanette oliva [address] [place] [address] 10/11/2024 12:30 AM EDT Home Care Visit [facility] [address] [place] [address] Leslie Lo, SAUD [address] [place] [address] 10/12/2024 2:00 AM EDT Home Care Visit [facility] [address] [place] [phone] Phillips, Jeanette [address] [place] [address] 10/14/2024 Home Care Visit [facility] [address] [place] [phone] Leslie Lo RN [address] [place] [address] 10/15/2024 1:00 AM EDT Home Care Visit [facility] [address] [place] [phone] Phillips Jeanette [address] [place] [address] 10/18/2024 Home Care Visit [facility] [address] [place] [address] Leslie Lo RN [address] [place] [address] 10/19/2024 1:00 AM EDT Home Care Visit [facility] [address] [place] [phone] Jeanette Phillips [address] [place] [address] 10/21/2024 Home Care Visit [facility] [address] [place] [address] Leslie Lo RN [address] [place] [address] 10/22/2024 1:00 AM EDT Home Care Visit [facility] [address] [place] [address] Jeanette Phillips [address] [place] [address] 10/25/2024 12:30 AM EDT Home Care Visit [facility] [address] [place] [address] Leslie Lo RN [address] [place] [address] 10/26/2024 2:00 AM EDT Home Care Visit [facility] [address] [place] [phone] Jeanette Phillips [address] [place] [address] 10/28/2024 Home Care Visit [facility] [address] [place] [address] Leslie Lo RN [address] [place] [address] 10/29/2024 1:00 AM EDT Home Care Visit [facility] [address] [place] [address] Jeanette Phillips [address] [place] [address] 11/01/2024 2:00 AM EDT Home Care Visit [facility] [address] [place] [address] Leslie Lo RN [address] [place] [address] 11/02/2024 2:00 AM EDT Home Care Visit [facility] [address] [place] [address] Jeanette Phillips [address] [place] [address] 11/04/2024 Home Care Visit [facility] [address] [place] [address] Leslie Lo RN [address] [place] [address] 11/05/2024 1:00 AM EDT Home Care Visit [facility] [address] [place] [phone] Jeanette Phillips [address] [place] [address] 11/08/2024 1:30 AM EDT Home Care Visit [facility] [address] [place] [address] Leslie Lo RN [address] [place] [address] 11/09/2024 2:00 AM EDT Home Care Visit [facility] [address] [place] [address] Jeanette Phillips [address] [place] [address] 11/11/2024 12:30 AM EDT Home Care Visit [facility] [address] [place] [address] Leslie Lo, SAUD [address] [place] [address] 11/12/2024 1:00 AM EDT Home Care Visit [facility] [address] [place] [phone] Phillips Jeanette [address] [place] [address] 11/15/2024 1:30 AM EDT Home Care Visit [facility] [address] [place] [address] Leslie Lo RN [address] [place] [address] 11/15/2024 9:00 AM EDT Office Visit [facility] [address] [address] Suki Altman PA-C [address] [place] [address] 11/16/2024 2:00 AM EDT Home [facility] [address] [place] [address] Phillips [address] [address] 11/18/2024 Home Care Visit [facility] [address] [place] [address] Leslie Lo RN [address] [place] [address] 11/19/2024 1:00 AM EDT Home Care Visit [facility] [address] [place] [phone] Jacqueline Jeanette [address] [place] [address] 11/22/2024 Home Care Visit [facility] [address] [place] [address] Leslie Lo, SAUD [address] [place] [address] 11/23/2024 2:00 AM EDT Home Care Visit [facility] [address] [place] [address] Jeanette Phillips [address] [place] [address] 11/25/2024 Appointment [facility] [address] [place] [address] Leslie Lo RN [address] [place] [address] 11/26/2024 1:00 AM EDT Home Care Visit [facility] [address] [place] [phone] Jay Jay Phillips[address] [address] 12/22/2024 9:30 AM EST Office Visit [facility] Internal Medicine [address] [place] [address] Shawn Omer MD [address] [place] [address] 03/14/2025 8:20 AM EST Office Visit [facility] Endocrinology [place] [address] [place] [phone] Laya Sandoval MD [address] [place] [address] [email or web address] documented as of this encounter Results * CT Abdomen/Pelvis Outside (No Interpretation) (02/09/2014 12:00 AM EST) Narrative SYSTEMGENERATED, DOCUMENTATION - 01/23/2018 4:28 PM EST This study is for PACS storage only and not for interpretation. us Provider Not In System PhD IMG OUTSIDE IMAGING W /OUT INTERPRETATION Final Result * CT Chest Outside (No Interpretation) (01/15/2014 12:00 AM EST) Narrative SYSTEMGENERATED, DOCUMENTATION - 01/23/2018 4:30 PM EST This study is for PACS storage only and not for interpretation. us Provider Not In System PhD IMG OUTSIDE IMAGING W /OUT INTERPRETATION Final Result * CT Abdomen/Pelvis Outside (No Interpretation) (01/13/2014 12:00 AM EST) Narrative SYSTEMGENERATED, DOCUMENTATION - 01/23/2018 4:30 PM EST This study is for PACS storage only and not for interpretation. us Provider Not In System PhD IMG OUTSIDE IMAGING W /OUT INTERPRETATION Final Result documented in this encounter Visit Diagnoses Not on filedocumented in this encounter Additional Health Concerns Infection Onset Date Last Indicated Resolved Time 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 close contact 12/31/2019 12/31/2019 01/14/2020 1:23 AM EST Assessment Noted Time PHQ-2 Depression Total Score: 0 03/13/19 18 8:47 AM EST documented as of this encounter Care Teams Ed Manager Relationship Specialty Start Date End Date Shawn Omer MD [address] [place] [address] [email or web address] PCP - General Internal Medicine 03/18/14 Brianna Rodriguez NP [address] [place] [address] Historical LMR Provider 11/25/1605/11 Shawn Omer MD [address] [place] [address] [email or web address] Historical LMR Provider 11/25/16 05/23/19 Markell Beltre MD [address] [place] [address] [email or web address] Historical LMR Provider 11/25/16 Nohemi Fuentes NP [address] [place] [address] Historical LMR Provider 11/25/16 Leann Simons NP [address] [place] [address] [email or web address] Historical LMR Provider 11/25/16 05/23/19 Kal An MD [address] [place] [address] Rapid Extractor Operator Endocrinology 09/02/17 Shawn Omer MD [address] [place] [address] [email or web address] Insurance Assigned Provider 05/17/23 Laya Sandoval MD [address] [place] [address] [email or web address] Endocrinology 05/24/19 Delaney Soriano NP [address] [place] [address] Cardiology 05/24/19 Toby Nelson MD [address] [facility] [place] [address] Hospitalist 12/10/19 documented as of this encounter Additional Source Comments The information contained in this document represents components of the legal health record. It is not the complete legal health record.[facility]
--- OUTSIDE RECORDS SUMMARY | 2024-10-06 09:53 | XMS_ITS | Clinical Summary ---
Author Organization [facility] Address [address] [facility] [address] [place] [phone] Phone Care Team Providers Care Completion Manager Name Role Phone Shawn Peterson MD Primary Care Provider Jie An MD Unavailable Shawn Peterson MD Unavailable Laya Sandoval MD Unavailable [phone] Delaney Soriano NP Unavailable Toby Nelson MD Unavailable [phone] Allergies Active Allergy Reactions Criticality Noted Date Comments Atenolol Hives Low 04/04/2014 Beta-Blockers (Beta-Adrenergic Blocking Agts) Hives High 03/26/2021 Cephalexin Diarrhea,Dizziness 01/28/2023 Propranolol Hcl Hives 08/06/2016 Other reaction(s): hives Topiramate Other (See Comments) 08/31/2019 Heartburn and nauseau And vomitting Vancomycin Nausea and/or Vomiting High 03/26/2021 Medications cholecalciferol, vitamin D3, 25 mcg (1,000 unit) capsule Take 1,000 Units by mouth as directed. 1000 units Sun/Tue//Sat & 2000 units MWF Active ondansetron (ZOFRAN-ODT) 8 MG disintegrating tabletIndications :Nausea and vomiting, intractability of vomiting not specified, unspecified vomiting type [The details of the medication are not available because there are pending changes by a home health clinician.] 30 tablet 5 021 Active Additional Information Patient not taking.Reason: Therapy complete, Reported on 10/01/2024 fluoride, sodium, (PREVIDENT 5000 BOOSTER) 1.1 % Pste 1 application 2 (two) times a day. Active cholestyramine (QUESTRAN) 4 gram packet as needed. 1-2 times a week 022 Active Medication-Free Text as directed Dx: NIDDM/Polyneuro amina (E11.42), Hammertoe Foot Deformity (M20.41,M20.42) , Preulcerative Skin Lesion(s) (L85.1 Active triamcinolone acetonide 0.1 % cream daily as needed (for skin issues). Active empagliflozin (JARDIANCE) 10 mg tabletIndications :Type 2 diabetes mellitus with peripheral neuropathy Take 1 tablet (10 mg total) by mouth daily. 90 tablet 1 024 Active ascorbic acid, vitamin C, (VITAMIN C) 250 MG tablet Take 250 mg by mouth daily. Active ferrous gluconate 324 mg (37.5 mg elemental) TabIndications:Ir on deficiency anemia, unspecified iron deficiency anemia type take 1 tablet by mouth every day 90 tablet 3 024 Active ketoconazole 2 % creamIndications: Fungal rash of trunk Apply topically 2 (two) times a day as needed. To groin rash 45 g 3 025 Active metFORMIN (GLUCOPHAGE-XR) 500 MG 24 hr tabletIndications :Type 2 diabetes mellitus with peripheral neuropathy Take 2 tablets, orally twice daily, or as directed 360 tablet 3 025 Active furosemide (LASIX) 20 MG tablet Take 1 tablet (20 mg total) by mouth daily. 90 tablet 3 025 Active FLUoxetine (PROZAC) 10 MG capsuleIndication s:History of depression Take 1 capsule (10 mg total) by mouth daily. 90 capsule 3 025 Active omeprazole (PRILOSEC) 20 MG capsuleIndication s:Gastroesophagea l reflux disease Take 1 capsule (20 mg total) by mouth daily. 90 capsule 3 025 Active metoprolol succinate (TOPROL-XL) 25 MG 24 hr tabletIndications :Chronic systolic congestive heart failure TAKE 1 TABLET DAILY. 90 tablet 3 025 Active nortriptyline (PAMELOR) 50 MG capsuleIndication s:Cyclical vomiting TAKE 1 CAPSULE NIGHTLY AT BEDTIME 90 capsule 3 025 Active ONETOUCH VERIO Strp stripsIndications :Type 2 diabetes mellitus with peripheral neuropathy Use as directed to monitor glucose once daily Dx E11.42 100 strip 3 025 Active simvastatin (ZOCOR) 20 MG tabletIndications :Hyperlipidemia Take 1 tablet (20 mg total) by mouth nightly at bedtime. 90 tablet 3 025 Active rivaroxaban (XARELTO) 20 mg Tab Take 1 tablet (20 mg total) by mouth daily. 90 tablet 3 025 Active galcanezumab-gnlm (EMGALITY) 120 mg/mL subcutaneous syringeIndication s:Other migraine with status migrainosus, intractable Inject 1 mL (120 mg total) under the skin every 30 (thirty) days. 3 mL 3 025 Active levothyroxine (SYNTHROID, LEVOTHROID) 88 MCG tabletIndications :Acquired hypothyroidism [The details of the medication are not available because there are pending changes by a home health clinician.] 90 tablet 1 025 Active Additional Information Patient taking differently:88 mcg Oral Every morning,taking 112mcg 6 days/week, Reported on 10/01/2024 MOUNJARO 7.5 mg/0.5 mL PnIj subcutaneous penIndications:Ty pe 2 diabetes mellitus with peripheral neuropathy [The details of the medication are not available because there are pending changes by a home health clinician.] 6 mL 1 025 Active Additional Information Patient not taking.Reason: Changed by another physician, Reported on 10/01/2024 ciprofloxacin HCl (CIPRO) 500 MG tablet Take 500 mg by mouth 2 (two) times a day. 2024 Active metroNIDAZOLE (FLAGYL) 500 MG tablet Take 500 mg by mouth 3 (three) times a day. 2024 Active magnesium oxide (MAG-OX) 400 mg (241.3 mg elemental) tablet Take 400 mg by mouth daily. Active nystatin (MYCOSTATIN) 100,000 units/mL suspension Take 200,000 Units by mouth 4 (four) times a day. Active sodium,potassium phosphates (PHOS-NAK ORAL) Take 1 packet by mouth daily. 025 2024 Active nitrofurantoin (MACROBID) 100 MG capsuleIndication s:Leukocytosis, unspecified type,Acute cystitis without hematuria Take 1 capsule (100 mg total) by mouth 2 (two) times a day for 5 days. 10 capsule 025 2024 Active ketoconazole 2 % creamIndications: Rash Apply topically 2 (two) times a day. Apply twice a day to rash. 60 g 2 Active sacubitriL-valsar aldridge (ENTRESTO) 24-26 mg per tablet Take 1 tablet by mouth 2 (two) times a day. 60 tablet 1 Active hyoscyamine (LEVSIN SL) 0.125 mg SL tablet Take 0.125 mg by mouth every 4 (four) hours as needed for cramping (specific location in comments). PRN 020 2024 Discontinued(T herapy Completed/No Longer Necessary) MAGNESIUM ORALIndications:t rigoberto 1 tab daily, except on Mondays and Fridays take 2 tabs Take 500 mg by mouth daily. Indications: take 1 tab daily, except on Mondays and Fridays take 2 tabs 2024 Discontinued(T herapy Completed/No Longer Necessary) aluminum hydroxide magnesium carbonate sodium bicarbonate (GAVISCON 80) 80-14.2 mg Chew Take 2 tablets by mouth 4 (four) times a day as needed (GERD). 2024 Discontinued(N o longer taking) sacubitriL-valsar aldridge (ENTRESTO) 49-51 mg per tablet Take by mouth 2 (two) times a day. 2024 Discontinued(N o longer taking) tirzepatide (MOUNJARO) 7.5 mg/0.5 mL PnIj subcutaneous penIndications:Ty pe 2 diabetes mellitus with peripheral neuropathy Inject 0.5 mL (7.5 mg total) under the skin once a week. 6 mL 1 04/08/ 025 2024 Discontinued Active Problems Problem Noted Date Diagnosed Date Mixed stress and urge urinary incontinence 09/30 Assessment & Plan (09/30/2024 12:01 PM EDT): She reports urinary incontinence with difficulty reaching the bathroom in time to urinate as well as incontinence overnight. She is concerned about skin breakdown due to the urine being near where her incision sites were. Advised to use pads or briefs and change them promptly after episodes of incontinence to prevent skin breakdown and keep the area clean. Bruising 09/30/2024 Assessment & Plan (09/30/2024 12:01 PM EDT): She reports having red colon on her [...] or creams are indicated at this time. C. difficile colitis 08/25/2024 Assessment & Plan (09/30/2024 12:00 PM EDT): Recently had C. difficile colitis with septic shock status post colectomy with ostomy bag placement and was discharged from the hospital on 09/29/2024. During her hospital stay she was noted to have significant electrolyte abnormalities, will obtain a CMP, CRP, CBC, iron and iron binding capacity, ferritin, B12, folate, magnesium, and phosphorus levels to reassess. She has been managing her ostomy site well at home but notes that she still struggles with it. She is concerned about stool leakage. She has been taking magnesium supplements at home and is awaiting the phosphorus supplement that should be delivered from the pharmacy today. She does have an appointment scheduled with a colorectal surgeon next Friday. Given her significant weakness and recent septic shock as well as recent surgery, will order VNA services for fpc, PT, and OT. PT and OT should be used to help regain her strength and safety and complete ADLs. longterm should be used for ostomy teaching as she feels she is not sufficient in it and is uncomfortable doing it herself. VNA services were supposed to come from the hospital, however she has not heard from them yet. Assessment & Plan (08/25/2024 5:00 PM EDT): She was diagnosed with C. difficile diarrhea on 08/23/2024 via stool sample for which she was placed on p.o. vancomycin 4 times daily x 10 days. Since then she has noted an improvement of symptoms. Advised to continue this antibiotic to its completion. I did discuss with the patient about contact precautions while having a diagnosis of C. difficile, she notes understanding and is planning on staying away from people and focusing on good hand hygiene. Given the extreme diarrhea that she was experiencing, will obtain a BMP to assess her electrolytes and that it is improving. She also notes that her H&H were off so we will obtain a CBC to assess. All questions and concerns were answered to the patient. Chronic heart failure 10/30/2023 Overview (10/30/2023): Fol with [facility] cardiology- Dr. Christal Nelson MD- ov 09/22/23 - cont same meds- cardiomyopathy was due to LBBB with cardiac resynchronization therapy EF improved. Increase physical activity MEDS Furoseminde 20 poqd/ Xarelto 20 poqd/ Entresto 49-51mg po bid 90 days/ simvastatin 20 hs advised 6m f/u Assessment & Plan (09/30/2024 12:02 PM EDT): She has a history of chronic heart failure following with [facility] cardiology and had an appointment today. No medication changes were made today. She does have 2+ pitting edema bilateral lower extremities, likely in the setting of electrolyte abnormalities from the recent hospitalization. No indication to change her Lasix at this time. Cardiomyopathy 10/15/2023 Overview (10/15/2023): Remote monitoring in prog Adrenal adenoma 10/28/2022 Overview (10/28/2022): bilateral, noted 2010, nl hormonal testing 2018, stable on imagine 2018 Assessment & Plan (09/30/2024 12:01 PM EDT): On the CT scan during her hospitalization she was noted to have a left 1.8 cm adrenal nodule with recommendations to do nonemergent outpatient CT scan follow-up. Upon chart review, she has had a left adrenal nodule for many years, with the most recent CT scan prior being in 2019 which showed a left 2.2 cm adrenal nodule. Given that the nodule has actually decreased in size, this is extremely reassuring. Discussed getting repeat imaging in approximately 6 months, patient would like to hold off at this time. 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 vasovagal episodes given their clear association with nausea, vomiting, and diarrhea. It is actually quite common for individuals to develop this later in life, and it is also possible that her diabetes is contributing to some degree. An arrhythmia is certainly possible, although it is atypical for arrhythmia to lead to such GI distress. A. fib/flutter may have predisposed her to thrombus formation, thereby explaining her ischemic colitis, although this again does not explain all her prior episodes. Her family history is notable for two brothers with sudden . Given their age, however, the cause is more likely to be ischemia rather than a primary arrhythmia. Ms. Rhodes herself has several risk factors for ischemia and may present in an atypical nature given her gender and diabetes. For now, we have asked her to increase her fluid intake and to start toprol 25mg qhs to help suppress these likely vasovagal episodes. We recognize that she has developed hives to beta blockers in the past, but she has completely tolerated metoprolol 25 mg daily without any difficulties. Assessment & Plan (02/23/2018 9:15 AM EST): She has had no further episodes of syncope or dizziness. She does however have electrocardiogram changes in the setting of a high risk family with 2 brothers with sudden cardiac . We will make an arrangement for her to see Dr. Gwyn Chavez in April 2018 and have a stress test done and updated cardiac ultrasound study in the meantime. Low threshold for referral to general senior information developer. Assessment & Plan (07/24/2015 4:52 PM EDT): We would like to do a comprehensive cardiac evaluation including stress test and cardiac ultrasound which have been ordered today. She will follow-up with us once these tests are completed and we will see her back in one year's time. Vasovagal syncope 07/24/2015 Overview (01/23/2017): Recent episode one month ago accompanied again by preceding diarrhea Assessment & Plan (07/24/2015 4:50 PM EDT): Her vasovagal syncope is very sensitive to GI fluctuations. She is currently on maximum metformin ER 1 g twice a day which could be exacerbating this. In view of the fact that she is on insulin she may do better maximizing her basilar insulin needs and decrease her metformin which may decrease her overall symptomatology. She will arrange this through her primary care physician Dr. Peterson. She states that her hemoglobin A1c has been in reasonable range. Acquired hypothyroidism Assessment & Plan (07/19/2024 3:29 PM EDT): Last TSH low normal. Given age, would make slight decrease to allow TSH to come up into the normal range. Can finish off current by skipping an extra tablet every 2-3 weeks & then shift to 88 mcg daily. Will repeat prior to follow up. Assessment & Plan (01/20/2024 12:45 PM EST): Will have TFTs included with upcoming labs. Assessment & Plan (08/04/2023 8:47 AM EDT): She has been noticing more hair loss recently. Will order thyroid levels to check if dosing adjustments are needed Assessment & Plan (04/28/2023 8:54 AM EDT): Clinically euthyroid. Biochemically euthyroid on labs in February. Reports good consistency taking rx appropriately. Would repeat labs with upcoming labs due to weight loss with mounjaro, sooner prn symptoms of thyroid dysfunction or > 10- 15# weight change, or as otherwise clinically indicated. Assessment & Plan (10/28/2022 9:12 AM EDT): Clinically euthyroid. Biochemically euthyroid on labs in May. Reports good consistency taking rx appropriately. Wouldl repeat labs q6-12 months, sooner prn symptoms of thyroid dysfunction or > 10-15# weight change, or as otherwise clinically indicated. Assessment & Plan (07/26/2022 11:28 AM EDT): Reviewed labs done by PCP in April, levels are stable. Discussed don't think making any adjustments to her levothyroxine is needed because her levels are good. Assessment & Plan (04/22/2022 10:57 AM EDT): The patient thinks her recent weight gain is due to her thyroid levels being off. Reviewed blood from 03/04, done by PCP, and was normal. Discussed will need to check levels at her next blood work to determine if current dosing is appropriate. Discussed that the recent weight gain is likely not from her thyroid but from the holidays and recent decrease in activity. She is going to work on these before we try adjusting her levothyroxine Type 2 diabetes mellitus with peripheral neuropa thy Assessment & Plan (09/30/2024 12:02 PM EDT): She has a history of diabetes following with [facility] endocrinology with current management including Mounjaro 7.5 [...] be doing to help manage her blood sugar given the discontinuation of the Mounjaro which I agree with. Assessment & Plan (07/19/2024 3:29 PM EDT): Control has been excellent. Continue to work on eating healthy & keeping active. To call or send in BG with problems with glycemic control. Scheduled with ophtho. Follows w/ podiatry. Umalb/creat up to date, normal. BP under reasonable control. Assessment & Plan (04/29/2024 2:38 PM EDT): Control is good based upon the patient's recent A1C of 5.7% and her SMBG readings. She is not using any medications to cause hypoglycemia. She is tolerating the mounjaro well. Will maintain the dosing. To call or message with any issues managing his glucose levels. Up to date with [facility]. Labs ordered Assessment & Plan (01/20/2024 12:45 PM EST): Control has been excellent. No issues tolerating medications. We can try titrating up mounjaro from 5 to 7.5 mg weekly. Continue to work on eating healthy & keeping active. To call or send in BG with problems with glycemic control. Up to date with ophtho. Follows w/ podiatry. Umalb/creat up to date, normal. BP under reasonable control. Assessment & Plan (11/03/2023 9:14 AM EDT): Control is very good based upon the patient's recent A1C of 5.7% and her SMBG readings. She is not using any medications to cause hypoglycemia. She is tolerating the ozempic 2 mg well. After discussing the side effects of the ozempic comparing to what her GI provider found. She wants to continue with the ozempic. She will make a couple dietary adjustments to see if there is any improvement. Will send a message if she wants to continue with the 2 mg of switch to the 1 mg. To call or message with any issues managing his glucose levels. Up to date with [facility]. Reviewed labs Assessment & Plan (08/04/2023 8:51 AM EDT): Control is very good based upon the patient's recent A1C of 5.9% and her SMBG readings. She is not using any medications to cause hypoglycemia. She is finding she is still experiencing a lot of hunger while using the ozempic 1 mg compared to the mounjaro. Will try increasing her dosing to 2 mg to see if this helps reduce the hunger. Continue to work on eating healthy and being active. To call or message with any issues managing his glucose levels. Up to date with [facility]. Reviewed labs Assessment & Plan (04/28/2023 8:55 AM EDT): Control excellent. No issues tolerating medications. Continue to work on eating healthy & keeping active. To call or send in BG with problems with glycemic control. Up to date with [facility]. Follows w/ podiatry. Umalb/creat up to date, normal. BP under reasonable control. Assessment & Plan (01/28/2023 8:33 AM EST): Control is good based upon the patient's SMBG readings and her last A1C of 6.4%. She is not using any medications to cause hypoglycemia. Will increase her mounjaro to 7.5 mg from 5 mg weekly to help further improve her glucose control as she is not happy with some of the higher fasting levels. She has 2 doses left of the 5 mg, she will finish these and then start the 7.5 mg dose in a couple weeks. Continue to work on eating healthy and being active. To call or message with any issues managing her glucose levels. Up to date with [facility]. Labs are ordered with PCP Assessment & Plan (10/28/2022 9:13 AM EDT): Control excellent on current regimen.Continue to work on eating healthy & keeping active. To call or send in BG with problems with glycemic control. Up to date with [facility]. Foot & nail care good. Advised to avoid moisturizer between toes. Follows w/ podiatry. Umalb/creat up to date, normal. BP under reasonable control. Assessment & Plan (07/26/2022 11:31 AM EDT): Control is good based upon the patient's SMBG readings and her last A1C. She is not using any medications to cause hypoglycemia. She would like to change her trulicity to mounjaro to see if she can further improve her glucose levels with the additional benefit of more weight loss. Will start the PA needed for the medication change. Continue to work on eating healthy and being active. To call or message with any issues managing her glucose levels. Up to date with [facility]. Sees podiatry. Assessment & Plan (04/22/2022 11:05 AM EDT): Control is good based upon the patient's last A1C of 6.4% and her SMBG readings. She is not using any medications to cause hypoglycemia. She is not happy with her fasting levels going up from the low 100's to the 120-130's. Discussed some of this could be due to recent weight gain and lack of activity. She is going to work on improving her diet and exercise. Will try increasing her trulicity from 1.5 mg to 3 mg to see if this will also help improve her glucose control. Told to reach out to the office if any issues with getting the higher dose of trulicity. Continue to work on eating healthy and being active. Up to date with [facility]. Annual visit is due at the end of the month, to have copy of note sent to office. Sees podiatry. Will be due for labs before next [facility] current use of oral hypoglycemic drug Assessment & Plan (11/03/2023 9:15 AM EDT): Will maintain her jardiance dosing Long-term current use of inj ectable noninsulin antidiabetic medication Assessment & Plan (11/03/2023 9:15 AM EDT): She will message with if she wants to stay with the 2 mg ozempic or switch back down to the 1 mg Resolved Problems Problem Noted Date Diagnosed Date Resolved Date Pulmonary emboli 01/23/2017 04/11/2020 Encounters Date Type Department Care Team Description 10/05/2024 Home Care Visit [facility] [address] [place] [address] Jeanette Phillips CASE COMMUNICATION 10/05/2024 Home Care Visit [facility] [address] [place] [address] Elda Davis PT TELEPHONE ENCOUNTER 10/04/2024 11:30 AM EDT Home Care Visit [facility] [address] [place] [address] Betty Holloway BRANCH SALES MANAGER HOME VISIT 10/04/2024 7:11 AM EDT - 10/04/2024 11:59 PM EDT Hospital Encounter [facility] [address] [place] [address] Sandra Klein PA-C Discharge Disposition: Home or Self Care 10/01/2024 9:30 AM EDT Home Care Visit [facility] [address] [place] [address] Jannette Gibbons, SAUD SN OASIS START OF CARE (SOC) 10/01/2024 Telephone [facility] [address] [place] [address] Tessy Dinh, SAUD V[facility] Update 10/01/2024 Plan of Care Documentation [facility] [address] [place] [address] 10/01/2024 Telephone [facility] [address] [place] [address] Tessy Dinh, SAUD Results 10/01/2024 Transcribe Orders [facility] [address] [place] [address] Sandra Klein PA-C Iron deficiency anemia, unspecified iron deficiency anemia type (Primary Dx) 09/30/2024 11:47 AM EDT - 09/30/2024 11:59 PM EDT Hospital Encounter [facility] [address] [place] [address] Sandra Klein PA-C Discharge Disposition: Home or Self Care 09/30/2024 11:20 AM EDT Office Visit [facility] [address] [place] [address] Sandra Klein PA-C C. difficile colitis (Primary Dx); S/P colectomy; Iron deficiency anemia, unspecified iron deficiency anemia type; Mixed stress and urge urinary incontinence; Bruising; Adenoma of left adrenal gland; Type 2 diabetes mellitus with peripheral neuropathy; Chronic heart failure, unspecified heart failure type; Leukocytosis, unspecified type 09/30/2024 Orders Only [facility] [address] [place] [id number] Homehealth, Interface ProviderMD 09/29/2024 Telephone [facility] [address] [place] [address] Shawn Peterson MD Appointment (tcm) 09/28/2024 Telephone [facility] [address] [place] [address] Shawn Peterson MD referral 09/16/2024 Refill [facility] [place] [address] [place] [id number] Laya Sandoval MD Medication Refill 09/14/2024 8:59 AM EDT - 09/14/2024 11:59 PM EDT Hospital Encounter [facility] [address] [place] [address] Sandra Klein PA-C Discharge Disposition: Home or Self Care 08/25/2024 4:20 PM EDT Telemedicine [facility] [address] [place] [address] Sandra Klein PA-C C. difficile diarrhea (Primary Dx); Anemia, unspecified type 08/25/2024 Telephone [facility] [facility] [address] [place] [address] Randell Cao MA 08/25/2024 Telephone [facility] [address] [place] [address] Shawn Peterson MD 08/23/2024 Orders Only [facility] [address] [place] [address] Sandra Klein PA-C Chronic systolic congestive heart failure (Primary Dx) 08/18/2024 7:14 AM EDT - 08/18/2024 11:59 PM EDT Hospital Encounter [facility] [address] [place] [address] Shawn Peterson MD Discharge Disposition: Home or Self Care 08/11/2024 Orders Only [facility] [address] [place] [address] ProviderDallas MD 07/26/2024 Orders Only [facility] [address] [place] [address] ProviderDallas MD 07/19/2024 3:00 PM EDT Office Visit [facility] [place] [address] [place] [phone] Laya Sandoval MD Type 2 diabetes mellitus with peripheral neuropathy (Primary Dx); Acquired hypothyroidism from Last 3 Months Immunizations Immunization Administration Dates Next Due COVID-19 (Pre-12/02) Pfizer Vaccine, Bivalent 12+ 11/16/2021 COVID-19 (Pre-12/02) Pfizer Vaccine, mRNA, PF 04/23/2020,03/30/2020 COVID-19, Unspecified Formulation 11/27/2020,03/2020 [id number] FORMULATION 12/11/2008 Influenza High-Dose Quadriva lent Preservative Free IM 11/16/2021,10/17/2020 Influenza High-Dose Trivalen t Preservative Free IM 10/24/2023,12/01/2018,11/21/2017 Influenza Quadrivalent Adjuv anted Preservative Free IM 10/31/2022,10/31/2019 Influenza trivalent preserva tive free intradermal 11/09/2012 Influenza, Unspecified Formulation 10/11,10/10/2021,10/25/2020,11/07,12/04/2018,11/10/2017,11/22/2008 Influenza, whole 11/10/2006 Pneumococcal conjugate PCV13 03/07/2016 Pneumococcal polysaccharide PPSV23 03/13/2017, RSV Vaccine (monovalent, adjuvanted) 11/07/2023 Td (adult) 5 Lf Tetanus Toxo id, PF, Adsorbed 06/10/2002 Td, unspecified formulation 06/11/2002 Tdap 03/28/2016,10/18/2011 Zoster live 02/10/2010 Zoster recombinant 07/17/2019,01/16/2019 Family History Medical History Relation Comments Diabetes Brother twin, age 6 2 cardiac arrest Macular degeneration Brother Diabetes Father Diabetes Mother Colon cancer Paternal Aunt Colon cancer Paternal Grandmother Colon cancer Paternal Uncle Relation Status Comments Brother Father Mother Paternal Aunt Paternal Grandmother Paternal Uncle Social History Tobacco Use Types Packs/Day Years [...] on file Sexual Orientation Not on file Last Filed Vital Signs Vital Sign Reading Time Taken Comments Blood Pressure 117/69 10/04/2024 11:41 AM EDT Pulse 88 10/04/2024 11:41 AM EDT Temperature 36.2 C (97.2 F) 10/04/2024 11:41 AM EDT Respiratory Rate 18 10/01/2024 11:00 AM EDT Oxygen Saturation 94% 10/04/2024 11:41 AM EDT Inhaled Oxygen Concentration - - Weight 75.5 kg (166 lb 6.4 oz) 09/30/2024 11:10 AM EDT Height 159.6 cm (5' 2.84 ) 09/30/2024 11:10 AM E DT Body Mass Index 29.63 09/30/2024 11:10 AM EDT Plan of Treatment Upcoming Encounters Date Type Department Care Team (Late st Contact Info) Description 10/07/2024 10:00 AM EDT [facility] Visit [facility] [address] [place] [address] Leslie Lo, SAUD [address] [place] [address] 10/08/2024 1:00 AM EDT [facility] [address] [place], [place] [phone] Jeanette Phillips [address] [place] [address] 10/11/2024 12:30 AM EDT Home Care Visit [facility] [address] [place], [place] [phone] Leslie Lo RN [address] [place] [address] 10/12/2024 2:00 AM EDT Home Care Visit [facility] [address] [place] [phone] Jeanette Phillips [address] [place] [address] 10/14/2024 Home Care Visit [facility] [address] [place] [phone] Leslie Lo RN [address] [place] [address] 10/15/2024 1:00 AM EDT Home Care Visit [facility] [address] [place] [phone] Phillips Jeanette [address] [place] [address] 10/18/2024 Home Care Visit [facility] [address] [place] [phone] Leslie Lo RN [address] [place] [address] 10/19/2024 1:00 AM EDT Home Care Visit [facility] [address] [place] [phone] Jeanette Phillips [address] [place] [address] 10/21/2024 Home Care Visit [facility] [address] [place] [phone] Leslie Lo, SAUD [address] [place] [address] 10/22/2024 1:00 AM EDT Home Care Visit [facility] [address] [place] [phone] Jacqueline Jeanette [address] [place] [address] 10/25/2024 12:30 AM EDT Home [facility] Visit [facility] [address] [place] [phone] Leslie Lo, SAUD [address] [place] [address] 10/26/2024 2:00 AM EDT Home Care Visit [facility] [address] [place] [phone] Jeanette Phillips [address] [place] [address] 10/28/2024 Home Care Visit [facility] [address] [place] [phone] Leslie Lo, SAUD [address] [place] [address] 10/29/2024 1:00 AM EDT Home Care Visit [facility] [address] [place] [phone] Jeanette Phillips [address] [place] [address] 11/01/2024 2:00 AM EDT Home Care Visit [facility] [address] [place] [address] Leslie Lo, SAUD [address] [place] [address] 11/02/2024 2:00 AM EDT Home Care Visit [facility] [address] [place] [phone] Jeanette Phillips [address] [place] [address] 11/04/2024 Home Care Visit [facility] [address] [place] [phone] Leslie Lo RN [address] [place] [address] 11/05/2024 1:00 AM EDT Home Care Visit [facility] [address] [place] [phone] Jacqueline Jeanette [address] [place] [address] 11/08/2024 1:30 AM EDT Home Care Visit [facility] [address] [place] [phone] Leslie Lo RN [address] [place] [address] 11/09/2024 2:00 AM EDT Home Care Visit [facility] [address] [place] [phone] Jeanette Phillips [address] [place] [address] 11/11/2024 12:30 AM EDT Home Care Visit [facility] [address] [place] [phone] Leslie Lo RN [address] [place] [address] 11/12/2024 1:00 AM EDT Home Care Visit [facility] [address] [place] [address] Phillips, Jeanette[address] [address] 11/15/2024 1:30 AM EDT Home Care Visit [facility] [address] [place] [phone] Leslie Lo RN [address] [place] [address] 11/15/2024 9:00 AM EDT Office Visit [facility] [address] [phone] Suki Altman PA-C [address] [place] [address] 11/16/2024 2:00 AM EDT Home Care Visit [facility] [address] [place] [address] PhillipsJay Jay [address]iva[address] [address] 11/18/2024 Home Care Visit [facility] [address] [place] [phone] Leslie Lo RN [address] [place] [address] 11/19/2024 1:00 AM EDT Home Care Visit [facility] [address] [place] [phone] PhillipsJeanette oliva [address] [place] [address] 11/22/2024 Home Care Visit [facility] [address] [place] [phone] Leslie Lo, SAUD [address] [place] [address] 11/23/2024 2:00 AM EDT Home Care Visit [facility] [address] [place] [phone] Jay Jay Phillipsh [address] [place] [address] 11/25/2024 Appointment [facility] [address] [place] [phone] Leslie Lo RN [address] [place] [address] 11/26/2024 1:00 AM EDT Home Care Visit [facility] [address] [place] [phone] Pacheco Phillipsyah [address] [place] [address] 12/22/2024 9:30 AM EST Office Visit [facility] [address] [place] [address] Shawn Peterson MD [address] [place] [address] 03/14/2025 8:20 AM EST Office Visit [facility] [place] [address] [place] [phone] Laya Sandoval MD [address] [place] [phone] [email or web address] Health Maintenance Due Date Last Done Comments COLOGUARD 1994 FOBT 1994 SIGMOIDOSCOPY 1994 VIRTUAL COLONOSCOPY 1994 COVID-19 VACCINE ( season) 2024 10/24/2023, 04/29/2023, 10/31/2022, Additional history exists FIT TEST 07/30/2024 07/31/2023 INFLUENZA VACCINE (#1) 2024 , 10/31/2022, 10/31/2022, Additional history exists DEPRESSION SCREENING 12/13/2024 12/14/2023 HEMOGLOBIN A1C 02/18/2025 08/18/2024, 04/11, 01/29/2024, Additional history exists TSH LEVEL 03/24/2025 03/24/2024, 07/12, 03/03/2023, Additional history exists BLOOD PRESSURE 04/06/2025 10/04/2024 DIABETIC EYE EXAM 08/10/2025 08/10/2024, , 05/15/2023, Additional history exists CREATININE LEVEL 09/30/2025 09/30/2024, 06/2024, 08/18/2024, Additional history exists Adult Td,Tdap Booster 03/28/2026 03/28/2016 , 10/18/2011, 06/11/2002, Additional history exists COLONOSCOPY 10/19/2028 10/20/2023, 04/2019, 05/05/2015 COLORECTAL CANCER SCREENING 10/19/2028 PNEUMOCOCCAL VACCINES (50+ years) Completed 03/13/2017, 03/07/2016, 04/10/2004 HEPATITIS C SCREENING Completed 03/23/2019, 020 ZOSTER VACCINES Completed 07/17/2019, 12/0 08/2018, 02/10/2010 OSTEOPOROSIS SCREENING INITIAL (ONE-TIME) Completed 09/20/2019 RSV VACCINE Completed 11/07/2023 SMOKING STATUS SCREENING (Once After 26 Yrs) Completed 09/30/2024 HEPATITIS A VACCINES Aged Out No long er eligible based on patient's age to complete this topic HIB VACCINES Aged Out No longer eligi ble based on patient's age to complete this topic MENINGOCOCCAL VACCINES (ACWY) Aged Out No longer eligible based on patient's age to complete this topic MENINGOCOCCAL VACCINES (B) Aged Out N o longer eligible based on patient's age to complete this topic Medical Devices Implanted Type Area [employer]il[employer] Drier Operator Device Identifier Shelf Expiration Date Model / Serial / Lot Icd ICD Procedures Procedure Name Priority Date/Time Associated Diagnosis Comments URINE SEDIMENT Routine 10/04/2024 12:33 PM EDT URINALYSIS W/REFLEX URINE CULTURE Routine 10/04/2024 12:33 PM EDT Iron deficiency anemia, unspecified iron deficiency anemia type Leukocytosis, unspecified type S/P colectomy C. 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 difficile colitis Leukocytosis, unspecified type FOLATE Routine 10/04/2024 7:22 AM EDT Iron deficiency anemia, unspecified iron deficiency anemia type VITAMIN B12 Routine 10/04/2024 7:22 AM EDT Iron deficiency anemia, unspecified iron deficiency anemia type CBC AND DIFFERENTIAL Routine 09/30/2024 11:47 AM EDT S/P colectomy C. difficile colitis COMPREHENSIVE METABOLIC PANEL Routine 09/30/2024 11:47 AM EDT S/P colectomy C. difficile colitis Iron deficiency anemia, unspecified iron deficiency anemia type MAGNESIUM Routine 09/30/2024 11:47 AM EDT S/P colectomy C. difficile colitis PHOSPHORUS Routine 09/30/2024 11:47 AM EDT S/P colectomy C. difficile colitis C-REACTIVE PROTEIN Routine 09/30/2024 11:47 AM EDT S/P colectomy C. difficile colitis IRON AND IRON BINDING CAPACITY Routine 09/30/2024 11:47 AM EDT Iron deficiency anemia, unspecified iron deficiency anemia type FERRITIN Routine 09/30/2024 11:47 AM EDT Iron deficiency anemia, unspecified iron deficiency anemia type MAGNESIUM Routine 09/14/2024 8:59 AM EDT Chronic systolic congestive heart failure CBC AND DIFFERENTIAL Routine 09/14/2024 8:59 AM EDT Anemia, unspecified type C. difficile diarrhea BASIC METABOLIC PANEL Routine 09/14/2024 8:59 AM EDT C. difficile diarrhea MAGNESIUM Routine 08/18/2024 7:18 AM EDT Congestive heart failure, unspecified HF chronicity, unspecified heart failure type HEMOGLOBIN A1C Routine 08/18/2024 7:18 AM EDT Type 2 diabetes mellitus with peripheral neuropathy LIPID PANEL Routine 08/18/2024 7:18 AM EDT Pure hypercholesterolemia COMPREHENSIVE METABOLIC PANEL Routine 08/18/2024 7:18 AM EDT Pure hypercholesterolemia Gastroesophageal reflux disease without esophagitis Congestive heart failure, unspecified HF chronicity, unspecified heart failure type CBC AND DIFFERENTIAL Routine 08/18/2024 7:18 AM EDT Pure hypercholesterolemia Gastroesophageal reflux disease without esophagitis Congestive heart failure, unspecified HF chronicity, unspecified heart failure type DIABETES EYE EXAM FOR RESULT ENTRY ONLY Routine 08/10/2024 5:50 PM EDT OUTSIDE LAB Routine 07/22/2024 2:51 PM EDT TSH WITH REFLEX Routine 03/24/2024 7:11 AM EST Acquired hypothyroidism ENDOSCOPY, COLON 10/20/2023 10:10 AM EDT HC BLOOD OCCULT FECAL HGB DETER IA QUAL FECES 1-3 Routine 07/31/2023 8:00 AM EDT Anemia, unspecified type BD DXA AXIAL (SPINE) WITH HIP Routine 09/20/2019 8:31 AM EDT Postmenopausal estrogen deficiency HEPATITIS C ANTIBODY, QUALITATIVE Routine 03/23/2019 8:18 AM EST Need for hepatitis C screening test from Last 3 Months or Most Recently Relevant to Health Maintenance Results * (ABNORMAL) Urinalysis w/reflex Urine Culture (10/04/2024 12:33 PM EDT) COLOR Yellow Yellow [facility] CLARITY Clear [facility] GLUCOSE Negative Negative [facility] BILI Negative Negative [facility] KETONES Negative Negative [facility] SPECIFIC GRAVITY 1.025 1.005 - 1.030 [facility] BLOOD Negative Negative [facility] PH 6.0 5.0 - 8.0 [facility] Protein-UA Negative Negative [facility] NITRITE Positive(A) Negative [facility] Leukocyte esterase, ur Trace(A) Negative [facility] Urine (Urine) 10/04/2024 12: 33 PM EDT 10/04/2024 12:53 PM EDT Sandra Klein PA-C URINE ORDERABLES Final Resul t [facility] [address] [place] [address] * (ABNORMAL) Urine sediment (10/04/2024 12:33 PM EDT) WBC 5-10(A) NONE SEEN /hpf [facility] RBC 0-2(A) NONE SEEN /hpf [facility] URINE EPITHELIAL 0-4(A) NONE SEEN [facility] MUCUS Trace(A) NONE SEEN /hpf [facility] BACTERIA Trace(A) NONE SEEN /hpf [facility] YEAST Trace(A) NONE SEEN /hpf [facility] 10/04/2024 12:3 3 PM EDT 10/04/2024 12:53 PM EDT Sandra Klein PA-C URINE ORDERABLES Final Resul t [facility] [address] [place] [address] * (ABNORMAL) CBC and differential (10/04/2024 7:22 AM EDT) Only the most recent of4 resultswithin the time period is included. WBC 19.81(H) 4.00 - 11.00 K/uL [facility] RBC 4.29 4.00 - 5.20 M/uL [facility] HGB 12.1 12.0 - 16.0 g/dL [facility] HCT 39.5 36.0 - 46.0 % [facility] PLT 380 150 - 450 K/uL [facility] MCV 92.1 80.0 - 100.0 fL [facility] MCH 28.2 27.0 - 31.0 pg [facility] MCHC 30.6(L) 32.0 - 36.0 g/dL [facility] RDW 15.3(H) 11.5 - 14.5 % [facility] MPV 9.7 8.4 - 12.0 fL [facility] NRBC 0.00 0.00 /100 WBCs [facility] ABSOLUTE NRBC 0.00 0.00 K/uL [facility] DIFF METHOD Manual [facility] TOTAL CELLS COUNTED 100 [facility] NEUTS 75.0 48.0 - 76.0 % [facility] BANDS 3.0 0 - 10 % [facility] LYMPHS 13.0(L) 18.0 - 41.0 % [facility] MONOS 5.0 4.0 - 11.0 % [facility] EOS 1.0 0.0 - 5.0 % [facility] MYELOS 2.0(H) 0 % [facility] METAS 1.0(H) 0 % [facility] ABSOLUTE NEUTS 15.45(H) 1.92 - 7.60 K/uL [facility] ABSOLUTE LYMPHS 2.58 0.72 - 4.10 K/uL [facility] ABSOLUTE MONOS 0.99 0.16 - 1.10 K/uL [facility] ABSOLUTE EOS 0.20 0.00 - 0.50 K/uL [facility] ABSOLUTE MYELOS 0.40 K/uL [facility] ABSOLUTE METAS 0.20 K/uL [facility] Blood 10/04/2024 7:22 AM EDT 10/04/2024 7:30 AM EDT [facility] PA-C LAB BLOOD ORDERABLES Final R esult Performing Organization Address City/[facility]/ZIP Co de Phone Number [address] [address] * Folate (10/04/2024 7:22 AM EDT) FOLIC ACID 8.2 4.2 - 19.9 ng/mL [facility] Blood 10/04/2024 7:22 AM EDT 10/04/2024 7:30 AM EDT Result [facility] LAB BLOOD ORDERABLES Final R esult Performing Organization Address [facility]/ZIP Co de Phone Number [address] [address] * Vitamin B12 (10/04/2024 7:22 AM EDT) VITAMIN B12 1,107 232 - 1,245 pg/mL [facility] Blood 10/04/2024 7:22 AM EDT 10/04/2024 7:30 AM EDT [facility] PA-C LAB BLOOD ORDERABLES Final R esult Performing Organization Address City/[facility]/ZIP Co de Phone Number [address] [address] * (ABNORMAL) Comprehensive metabolic panel (09/30/2024 11:47 AM EDT) Only the most recent of2 resultswithin the time period is included. SODIUM 135 133 - 146 mmol/L [facility] POTASSIUM 4.5 3.3 - 5.1 mmol/L [facility] Comment:Specimen slightly he molyzed, result may be falsely elevated. CHLORIDE 102 96 - 108 mmol/L [facility] CO2 19(L) 21 - 35 mmol/L [facility] BUN 4(L) 6 - 19 mg/dL [facility] CREATININE 0.60 0.5 - 1.5 mg/dL [facility] GLUCOSE 127(H) 70 - 99 mg/dL [facility] ALBUMIN 2.6(L) 3.9 - 4.8 g/dL [facility] TOTAL PROTEIN 6.0(L) 6.5 - 8.0 g/dL [facility] CALCIUM 8.5 8.4 - 10.3 mg/dL [facility] ALKALINE PHOSPHATASE 161(H) 39 - 117 U/L [facility] TOTAL BILIRUBIN 0.3 0.0 - 1.2 mg/dL [facility] AST 38(H) 0 - 37 U/L [facility] ALT 11 0 - 40 U/L [facility] GLOBULIN 3.4 1 - 4.8 g/dL [facility] EGFR 94 >59 mL/min/1.7 2 [facility] Comment:Estimated glomerular filtration rate calculated using the CKD-EPI refit equation. ANION GAP 19 10 - 20 mmol/L [facility] Blood 09/30/2024 11:4 7 AM EDT 09/30/2024 12:01 PM EDT us Sandra Klein PA-C LAB BLOOD ORDERABLES Final R esult [facility] [address] [place] [address] * Iron and iron binding capacity (09/30/2024 11:47 AM EDT) IRON 80 30 - 160 ug/dL [facility] IRON BINDING CAPACITY 229 228 - 428 ug/dL [facility] TRANSFERRIN SATURAT. 35 15 - 50 % [facility] Blood 09/30/2024 11:4 7 AM EDT 09/30/2024 12:01 PM EDT [facility] PA-C LAB BLOOD ORDERABLES Final R esult Performing Organization Address City/[facility]/ZIP Co de Phone Number [address] [address] * (ABNORMAL) C-Reactive Protein (09/30/2024 11:47 AM EDT) C REACTIVE PROTEIN 7.3(H) 0.0 - 4.0 mg/L [facility] Blood 09/30/2024 11:4 7 AM EDT 09/30/2024 12:01 PM EDT [facility] PA-C LAB BLOOD ORDERABLES Final R esult Performing Organization Address City/[facility]/ZIP Co de Phone Number [address] [address] * Phosphorus (09/30/2024 11:47 AM EDT) PHOSPHORUS 2.7 2.7 - 4.5 mg/dL [facility] Blood 09/30/2024 11:4 7 AM EDT 09/30/2024 12:01 PM EDT [facility] PA-C LAB BLOOD ORDERABLES Final R esult Performing Organization Address City/[facility]/ZIP Co de Phone Number [address] [address] * Magnesium (09/30/2024 11:47 AM EDT) Only the most recent of3 resultswithin the time period is included. MAGNESIUM 1.8 1.6 - 2.6 mg/dL [facility] Blood 09/30/2024 11:4 7 AM EDT 09/30/2024 12:01 PM EDT [facility] PA-C LAB BLOOD ORDERABLES Final R esult Performing Organization Address City/[facility]/ZIP Co de Phone Number [address] [address] * (ABNORMAL) Ferritin (09/30/2024 11:47 AM EDT) FERRITIN 365(H) 13 - 150 ug/L [facility] Blood 09/30/2024 11:4 7 AM EDT 09/30/2024 12:01 PM EDT [facility]-C LAB BLOOD ORDERABLES Final R esult Performing Organization Address [facility] de Phone Number [address] [address] * (ABNORMAL) Basic metabolic panel (09/14/2024 8:59 AM EDT) SODIUM 139 133 - 146 mmol/L [facility] CHLORIDE 98 96 - 108 mmol/L [facility] POTASSIUM 4.3 3.3 - 5.1 mmol/L [facility] CO2 29 21 - 35 mmol/L [facility] BUN 13 6 - 19 mg/dL [facility] CREATININE 0.80 0.5 - 1.5 mg/dL [facility] GLUCOSE 65(L) 70 - 99 mg/dL [facility] CALCIUM 9.2 8.4 - 10.3 mg/dL [facility] EGFR 77 >59 mL/min/1.7 3m2 [facility] Comment:Estimated glomerular filtration rate calculated using the CKD-EPI refit equation. ANION GAP 16 10 - 20 mmol/L [facility] Blood 09/14/2024 8:59 AM EDT 09/14/2024 9:02 AM EDT [facility] PA-C LAB BLOOD ORDERABLES Final R esult [address] [address] * Hemoglobin A1c (08/18/2024 7:18 AM EDT) HEMOGLOBIN A1C 5.7 4.3 - 5.8 % [facility] Blood 08/18/2024 7:18 AM EDT 08/18/2024 7:26 AM EDT us Shawn Peterson MD LAB BLOOD ORDERABLES Final Re sult Performing Organization Address [facility] Co de Phone Number [address] [address] * (ABNORMAL) Lipid panel (08/18/2024 7:18 AM EDT) HDL 42 mg/dL [facility] Comment: Interpretation <40 mg/dL: Low HDL cholesterol (major risk factor for CHD) Greater than or equal to 60 mg/dL: High HDL cholesterol ( negative risk factor for CHD) HDL - cholesterol is affected by a number of factors, e.g. smoking, excerise, hormones, sex and age. CHOLESTEROL 102 0 - 240 mg/dL [facility] TRIGLYCERIDES 148 30 - 160 mg/dL [facility] LDL 30(L) 50 - 129 mg/dL [facility] Comment: LDL levels in terms of risk for coronary heart disease: <100 mg/dL: Optimal 100-129 mg/dL: Near or above optimal 130-159 mg/dL: Borderline high 160-189 mg/dL: High >190 mg/dL: Very High CARDIAC RISK RATIO 2.4(L) 3.3 - 4.4 [facility] Blood 08/18/2024 7:18 AM EDT 08/18/2024 7:26 AM EDT us Shawn Peterson MD LAB BLOOD ORDERABLES Final Re sult Performing Organization Address City/[facility]/ZIP Co de Phone Number [address] [address] * DIABETES EYE EXAM FOR RESULT ENTRY ONLY (08/10/2024 5:50 PM EDT) Historical Provider HEALTH MAINTENANCE Final Result * Outside Lab (07/22/2024 2:51 PM EDT) Historical Provider LAB BLOOD ORDERABLES Maribeth l Result * TSH with reflex (03/24/2024 7:11 AM EST) TSH 0.39 0.27 - 4.20 uIU/mL [facility] Blood 03/24/2024 7:11 AM EST 03/24/2024 7:17 AM EST Shawn Peterson MD LAB BLOOD ORDERABLES Final Re sult [address] [address] * ENDOSCOPY, COLON (10/20/2023 10:10 AM EDT) Narrative Transcriptions Jie Ramirez MD - 10/20/2023 10:10 AM EDT [facility] Patient Name: Elsamilana Rhodes Attending MD:: JIE RAMIREZ MD, Procedure Date: 10/20/2023 10:10 AM Date of : 1950 Age: 73 Admit Type: Outpatient Gender: Female Room: [facility] Referring MD: SHAWN PETERSON MD Exam Type: Colonoscopy Indications: Last colonoscopy: February 2019, Positive fecal immunochemical test, Iron deficiency anemiasecondary to chronic blood loss, Family history of coloncancer in multiple second-degree relatives Medications: Monitored Anesthesia Care Procedure: Informed consent was obtained from the patientafter discussion of the indications, limitations, alternatives, benefits, and risks of the procedure. Risks specifically discussed include but are not limited to medication reactions, missed lesions, bleeding, perforation, or the need for emergent surgery. Throughout the procedure, the patient's blood pressure, pulse, end-tidal CO2, and oxygensaturations were monitored continuously. The Olympus adult variable colonoscope [id number] #7 was introduced through the anus and advanced to the cecum, identified by the appendiceal orifice, ileocecal valve and palpation. The colonoscopy was technically difficult and complex due to aredundant colon, significant looping and a tortuous colon. Successful completion of the procedure was aided by applying abdominal pressure. The patient toleratedthe procedure fairly well. The quality of the bowel preparation was good. The ileocecal valve,appendiceal orifice, and rectum were photographed. Complications: No immediate complications. Estimated blood loss: Minimal. Findings: The perianal and digital rectal examinations were normal. Pertinent negatives include normalsphincter tone. The colon (entire examined portion) wassignificantly redundant. A 5 mm polyp was found in the transverse colon at80 cm proximal to the anus. The polyp was sessile. The polyp was removed with a cold snare. Resection and retrieval were complete. Estimated blood loss was minimal. Retroflexion in the right colon was performed. Multiple small and large-mouthed diverticula were found in the sigmoid colon and descending colon. Non-bleeding internal hemorrhoids were found during retroflexion. The hemorrhoids were small. Impression: - Redundant colon. - One 5 mm polyp in the transverse colon at 80 cm proximal to the anus, removed with a cold snare. Resected and retrieved. - Diverticulosis in the sigmoid colon and in the descending colon. - Non-bleeding internal hemorrhoids. Recommendation: - I will send results of your biopsy to you andyour referring physician or provider. If you do notreceive notification within 3 weeks, please call ouroffice. - Resume Xarelto (rivaroxaban) at prior dosetomorrow. - No repeat colonoscopy due to current age (66years or older). JIE RAMIREZ MD 10/20/2023 10:54:38 AM This report has been signed electronically. 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) Z80.0, Family history of malignant neoplasm of digestive organs K57.30, Diverticulosis of large intestine without perforation or abscess without bleeding Q43.8, Other specified congenital malformations of intestine --- Technical --- D12.3, Benign neoplasm of transverse colon (hepatic flexure or splenic flexure) K64.8, Other hemorrhoids R19.5, Other fecal abnormalities D50.0, 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 All rights reserved. The codes documented in this report are preliminary and upon veneer clipper helper reviewmay be revised to meet current compliance requirements. Procedure Date: 10/20/2023 10:10:[address] [place] [id number] Shawn Peterson MD GI PROCEDURE ORDERABLES Final Result * (ABNORMAL) Fecal immunochemical test x1 (FIT) (07/31/2023 8:00 AM EDT) Immuno Fecal Occult Positive(A ) Negative [facility] Stool (Stool) 07/31/2023 8:0 0 AM EDT 07/31/2023 11:18 AM EDT us Miri Burgess PA-C BODY FLUIDS AND STOOLS ORDERABL ES Final Result [facility] [address] [place] [address] * BD DXA AXIAL (SPINE) WITH HIP (09/20/2019 8:31 AM EDT) Anatomical Region Laterality Modality Bone Density Bone Density 09/20/2019 9:00 AM EDT Impressions 09/20/2019 9:01 AM EDT Normal bone mineral density. POS - [id number] Narrative 09/20/2019 9:01 AM EDT This is a 69-year-old postmenopausal white female who is not on estrogen replacement therapy and does not take calcium supplements. She denies a family history of osteoporosis or a perceived height loss. Evaluation of the lumbar spine and hips was performed and felt to be technically adequate. Total bone mineral density in the L1-L4 vertebral bodies was calculated at 1.000 gm/cm2 with a T-score of -0.4 and Z-score of 1.7, falling within the WHO classification of normal. Total bone mineral density in the right hip was calculated at 1.073 gm/cm2 with a T-score of 1.1 and Z-score of 2.6 falling within the WHO classification of normal. Total bone mineral density in the left hip was calculated at 1.043 gm/cm2 with a T-score of 0.8 and Z-score of 2.4 falling within the WHO classification of normal. Procedure Note Jie Phelps MD - 09/20/2019 This is a 69-year-old postmenopausal white female who is not on estrogenreplacement therapy and does not take calcium supplements. She denies afamily history of osteoporosis or a perceived height loss. Evaluation of the lumbar spine and hips was performed and felt to betechnically adequate. Total bone mineral density in the L1-L4 vertebral bodies was calculated at1.000 gm/cm2 with a T-score of -0.4 and Z-score of 1.7, falling within theWHO classification of normal. Total bone mineral density in the right hip was calculated at 1.073 gm/fu4dmkm a T-score of 1.1 and Z-score of 2.6 falling within the WHOclassification of normal. Total bone mineral density in the left hip wascalculated at 1.043 gm/cm2 with a T-score of 0.8 and Z-score of 2.4falling within the WHO classification of normal. IMPRESSION: Normal bone mineral density. POS - [id number] Shawn Peterson MD IMG BD BONE DENSITY DEXA Maribeth l Result * Hepatitis C antibody, qualitative (03/23/2019 8:18 AM EST) HCV NON-REACTIV E NON-REACTI VE [facility] Blood 03/23/2019 8:18 AM EST 03/23/2019 8:20 AM EST Shawn Peterson MD LAB BLOOD ORDERABLES Final Re sult [facility] [address] [place] [address] from Last 3 Months or Most Recently Relevant to Health Maintenance Insurance MEDICARE PART A & B [employer] SUPPLEMENT MEDICARE PART A & B [employer] SUPPLEMENT MEDICARE PART A & B [employer] SUPPLEMENT MEDICARE PART A & B [employer] SUPPLEMENT MEDICARE PART A & B [employer] SUPPLEMENT MEDICARE PART A & B [employer] SUPPLEMENT MEDICARE PART A & B [facility] MEDEX SUPPLEMENT MEDICARE PART A & B [employer] MEDEX SUPPLEMENT MEDICARE PART A & B [employer] MEDEX SUPPLEMENT Care Teams Completion Manager Relationship Specialty Start Date End Date Shawn Peterson MD [address] [place] [phone] PCP - General Internal Medicine 03/18/14 Jie An MD [address] [place] [address] Machine I[employer] Endocrinology 09/02/17 Shawn Peterson MD [address] [place] [address] Insurance Assigned Provider 05/17/23 Laya Sandoval MD [address] [address] Endocrinology 05/24/19 Delaney Soriano NP [address] [place] [address] Cardiology 05/24/19 Toby Nelson MD [address] [facility] [place] [address] Hospitalist 12/10/19 Additional Source Comments The information contained in this document represents components of the legal health record. It is not the complete legal health record.[facility]
== END 2024-10-06 10:10 | disposition home or self-care (01) ==
LOC: HO.HGS 09:20
PROVIDERS: PCP Internal Medicine; Visit Provider Surgery
DX: Z93.2 Ileostomy status (principal)
CPT/HCPCS: 99203

== ENCOUNTER → 2024-10-06 09:19 | Outpatient (BNVA) | payer MEDICARE, SELFPAY | PROVIDERS: PCP Internal Medicine; Visit Provider Surgery | DX: Z93.2 Ileostomy status (principal) | CPT/HCPCS: 99202 ==

== ENCOUNTER → 2024-10-23 23:59 | Outpatient (BNV) | payer MEDICARE, SELFPAY ==
--- NOTE | 2024-11-21 19:24 | MHC.OFFVIS ---
Intake Visit Reasons: Remote HF monitoring- [employer] Allergies atenolol Allergy (Intermediate, Verified 11/11/24 11:02) hives Beta-Blockers (Beta-Adrenergic Bloc (BETA-BLOCKERS (BETA-ADRENERGIC BLOC) Allergy (Intermediate, Verified 11/11/24 11:02) HIVES vancomycin (VANCOMYCIN) Adverse Reaction (Intermediate, Verified 11/11/24 11:02) NAUSEA & VOMITING PFSH Medical History Ileostomy in place Cataract (lens) fragments in eye following cataract surgery Hypothyroidism HLD (hyperlipidemia) HTN (hypertension) Ischemic bowel disease Bundle branch block, left Diabetes Abdominal migraine Pulmonary embolism Surgical History History of colectomy (09/24/24) Status post biventricular cardiac pacemaker insertion LAP-BAND surgery status History of partial hysterectomy Family History Father CVD (cardiovascular disease) Diabetes Mother Diabetes Mitral valve prolapse Social History Alcohol intake: never Patient Tobacco Use Status: Never used Tobacco service: No Current occupational status: retired Office Procedures Cardiac Device Check Cardiac Device Check Details: HF monitoring optivol showing ongoing fluid overload. [id number] Cardiac Device Interrogation, cardio physiologic monitor Procedure code (CPT) selection complete Assessment & Plan Assessment & Plan (1) Chronic heart failure: Code(s): I50.9 - Heart failure, unspecified Category: Medical Plan Coding Level of Care Code Procedure Only Diagnoses Chronic heart failure I50.9 CPT Codes Cardiac Device Check - Cardiac Device 15: [id number] Cardiac Device Interrogation, cardio physiologic monitor ([id number])
== END ==
PROVIDERS: PCP Internal Medicine; Visit Provider Internal Medicine Cardiovascular Disease
DX: I50.9 Heart failure, unspecified (principal); Z95.810 Presence of automatic (implantable) cardiac defibrillator
CPT/HCPCS: 93297

== ENCOUNTER → 2024-10-23 23:59 | Outpatient (BNV) | payer MEDICARE, SELFPAY ==
--- NOTE | 2024-11-21 19:18 | A.OFFVIS_ITS ---
Intake Visit Reasons: Remote device check- [employer] Allergies atenolol Allergy (Intermediate, Verified 11/11/24 11:02) hives Beta-Blockers (Beta-Adrenergic Bloc (BETA-BLOCKERS (BETA-ADRENERGIC BLOC) Allergy (Intermediate, Verified 11/11/24 11:02) HIVES vancomycin (VANCOMYCIN) Adverse Reaction (Intermediate, Verified 11/11/24 11:02) NAUSEA & VOMITING PFSH Medical History Ileostomy in place Cataract (lens) fragments in eye following cataract surgery Hypothyroidism HLD (hyperlipidemia) HTN (hypertension) Ischemic bowel disease Bundle branch block, left Diabetes Abdominal migraine Pulmonary embolism Surgical History History of colectomy (09/24/24) Status post biventricular cardiac pacemaker insertion LAP-BAND surgery status History of partial hysterectomy Family History Father CVD (cardiovascular disease) Diabetes Mother Diabetes Mitral valve prolapse Social History Alcohol intake: never Patient Tobacco Use Status: Never used Tobacco service: No Current occupational status: retired Office Procedures Cardiac Device Check Cardiac Device Check Details: ATTENDING PATHOLOGIST Good battery life Runs of SVT vs Sinus tachycardia WAFER FABRICATOR 98% [id number] Cardiac Device Interrogation, pacemaker or defibrillator Procedure code (CPT) selection complete Assessment & Plan Assessment & Plan (1) Chronic heart failure: Code(s): I50.9 - Heart failure, unspecified Category: Medical Plan Coding Level of Care Code Procedure Only Diagnoses Chronic heart failure I50.9 CPT Codes Cardiac Device Check - Cardiac Device 14: [id number] Cardiac Device Interrogation, pacemaker or defibrillator ([id number])
== END ==
PROVIDERS: PCP Internal Medicine; Visit Provider Internal Medicine Cardiovascular Disease
DX: R00.0 Tachycardia, unspecified (principal); Z95.810 Presence of automatic (implantable) cardiac defibrillator
CPT/HCPCS: 93295

== ENCOUNTER → 2024-11-04 12:56 | Outpatient (REF) | payer MEDICARE, SELFPAY ==
--- OUTSIDE RECORDS SUMMARY | 2023-09-29 05:30 | XMS_ITS ---
Author Organization [facility] Address [address] [place] [id number] Care Team Providers Care Retrofit Installer Name Role Phone Kan MCMAHON, Shawn Primary Care Provider Unavaila Sadie Avendano [phone] Encounters Encounter Location Date Provider Diagnosis [address] [id number] 09/29/2023 Sadierad Jang Plan Of Treatment Next Appt Details Provider Name:Sadie Jang , 12/16/2024 08:30:00 AM, [address] [place] [address], [id number], Progress Notes * SALMAAlicia TENORIOTonoOB:09/1950 (74 yo F)Acc No.[id number]:09/29/2023 Progress Note Patient: Elsa ROSE Provider: Cuba Jang DPM :1950 A ge:73 Y S ex:Female Date:09/29/2023 Address:[address] [place] [address] [place], [id number] Pcp:Shawn Omer MD Subjective: * Chief Complaints: * * Medical History: Objective: * Vitals: Assessment: Plan: * Treatment: * Images: * The named appointment provid er may or may not be the originator of this progress note, and it is not deemed complete until electronically signed by the appointment provider. Sign off status: Pending * Provider: Cuba Jang, DPTiarra Date: 0 09/29/2023 Generated for Madison christie/Natalia/Ovidio on: 0 11/04/2024 12:29 AM EDT
--- OUTSIDE RECORDS SUMMARY | 2024-11-02 08:30 | XMS_ITS | Encounter Summary ---
Author Organization [facility] Address [address] [facility] [address] [place] [phone] Phone Care Team Providers Care Bowling Alley Operator Name Role Phone Shawn Omer MD Primary Care Provider [phone] Kal An MD Unavailable [phone] Shawn Omer MD Unavailable Laya Sandoval MD Unavailable [phone] Delaney Soriano NP Unavailable Toby Nelson MD Unavailable Reason for Visit * Auth/Cert (Routine) Specialty Diagnoses / Procedures Referred By Contac t Referred To Contact Referral ID Status Reason Start Date Expiration Date Visits Re quested Visits Authorized [id number] 1 1 Encounter Details Date Type Department Care Team (Late st Contact Info) Description 11/02/2024 8:30 AM EDT Home Care Visit [facility] [address] [place] [phone] Lizzie Douglas, PT [address], [place] [phone] [email or web address] PT DISCIPLINE DISCHARGE VISIT Social History Tobacco Use Types Packs/Day [...] Sign Reading Time Taken Comments Blood Pressure 115/60 11/02/2024 8:49 AM EDT Pulse 90 11/02/2024 8:49 AM EDT Temperature 36.3 C (97.4 F) 11/02/2024 8:49 AM EDT Respiratory Rate 16 11/02/2024 8:49 AM EDT Oxygen Saturation 95% 11/02/2024 8:49 AM EDT Inhaled Oxygen Concentration - - Weight - - Height - - Body Mass Index - - documented in this encounter Plan of Treatment Upcoming Encounters Date Type Department Care Team (Late st Contact Info) Description 11/05/2024 5:00 AM EDT Home Care Visit [facility] [address] [place] [phone] Alma Singh RN [address] [place] [address] 11/08/2024 1:30 AM EDT Home Care Visit [facility] [address] [place] [phone] Leslie Lo RN [address] [place] [phone] 11/11/2024 12:30 AM EDT Home Care Visit [facility] [address] [place] [phone] Leslie Lo RN [address] [place] [address] 11/15/2024 1:30 AM EDT Home Care Visit [facility] [address] [place] [phone] Leslie Lo RN [address] [place] [phone] 11/16/2024 8:40 AM EDT Office Visit [facility] [address] [place] [phone] Suki Altman PA-C [address] [place] [address] 11/18/2024 Home Care Visit [facility] [address] [place] [phone] Leslie Lo RN [address] [place] [phone] 11/22/2024 Home Care Visit [facility] [address] [place] [phone] Leslie Lo RN [address] [place] [address] 11/25/2024 Appointment [facility] [address] [place] [phone] Leslie Lo RN [address] [place] [address] [email or web address] 12/22/2024 9:30 AM EST Office Visit [facility] Internal Medicine [address] [place] [address] Shawn Omer MD [address] [place] [address] [email or web address] 03/14/2025 8:20 AM EST Office Visit [facility] [place] [address] [place] [phone] Laya Sandoval MD [address] [place] [phone] [email or web address] documented as of this encounter Visit Diagnoses Not on filedocumented in this encounter Additional Health Concerns Assessment Noted Time PHQ-2 Depression Total Score: 0 12/14/19 24 1:10 PM EST documented as of this encounter Home Health Visit - Care Plan Visit Details Visit Type -PT DISCIPLINE PRASHANT PARISI VISIT Discipline -Physical Therapy Problems Problem Description Start Date Status Goals Interve ntions HH - Community Resources - Lack of Knowledge/Access Disciplines: All Active Home Health Disciplines 10/01/2024 Active 1 goal linked to scheduled/documen katerin intervention 1 goal intervention scheduled/document ed in this visit HH - Falls - Risk of Disciplines: All Active Home Health Disciplines 10/01/2024 Active 1 goal linked to scheduled/documen katerin intervention 1 goal intervention scheduled/document ed in this visit HH - Standard of Care Disciplines: All Active Home Health Disciplines 10/01/2024 Active 1 goal linked to scheduled/documen katerin intervention 3 goal interventions scheduled/document ed in this visit HH - Pain Disciplines: All Active Home Health Disciplines 10/01/2024 Active 1 goal linked to scheduled/documen katerin intervention 2 goal interventions scheduled/document ed in this visit HH - Medication Management Disciplines: All Active Home Health Disciplines 10/01/2024 Active 1 goal linked to scheduled/documen katerin intervention 2 goal interventions scheduled/document ed in this visit HH - Health Maintenance Disciplines: All Active Home Health Disciplines 10/01/2024 Active 1 goal linked to scheduled/documen katerin intervention HH - Focus of Care and Teaching Disciplines: All Active Home Health Disciplines w/RD 10/01/2024 Active 1 goal linked to scheduled/documen katerin intervention 1 goal intervention scheduled/document ed in this visit HH - Emergency Planning - Knowledge of Disciplines: All Active Home Health Disciplines 10/01/2024 Active 1 goal linked to scheduled/documen katerin intervention 2 goal interventions scheduled/document ed in this visit HH - Mobility and Activity Tolerance - Impaired Disciplines: Physical Therapy 10/08/2024 Resolved on 11/02/2024 1 goal linked to scheduled/documen katerin intervention 2 goal interventions scheduled/document ed in this visit Goals Goal Associated Problem Outcome Goal Met? Visit Notes HH - Demonstrate/verbalize knowledge of community resources HH - Community Resources - Lack of Knowledge/Access No HH - Knowledge and management of fall prevention measures. HH - Falls - Risk of Progressing No HH - Achieve care management for a safe to home/community discharge from homecare HH - Standard of Care Progressing No HH - Frequency of pain interfering with patient's activity or movement will improve with activity or movement by discharge. Description: Pain will be managed over the course of care. Patient's acceptable level of pain is 1 - pain that doesn't interfere. HH - Pain Progressing No HH - Safe medication management, avoid unnecessary harm related to medication errors and/or interactions HH - Medication Management No HH - Patient preferences will be utilized to achieve optimal wellness and home safety. HH - Health Maintenance Progressing No HH - Communication and collaboration to achieve patient goals HH - Focus of Care and Teaching Progressing No HH - Knowledge of options for managing care in the event of an emergency related situation. HH - Emergency Planning - Knowledge of No HH - Demonstrate maximum mobility and activity level for safe function Description: PT GOALS: 11/02/24 goals met 1. Patient/caregiver will demonstrate safe transfers with ue support without verbal cues from all surface heights, so pt can safely perform functional mobility from all home surfaces by 11/08/24 2. Patient will improve Tinetti score to 24/28 demonstrating improved ambulation safety with gait >100' and reduced fall risk allowing pt to improve functional mobility by 10/2924 3. Patient will demonstrate improved ambulation safety with gait distances >500 ft to navigate home and short community distances, while demonstrating fall risk measures allowing pt to improve functional mobility by 11/08/24 4. Patient will achieve and demonstrate 1/2 increase in BLE strength to within 4+/5 to 5/5 range allowing patient to improve functional mobility by 11/08/24 5. Patient will be able to ascend/descend curbing and steps within the home with close sup to cg assist allowing patient ability to attend community appointments with decreased fall risk by 11/08/24 6. Patient/caregiver will demonstrate understanding of therapy instructions/recommendation s by completion of task with 90% accuracy allowing pt to increase strength and balance by 11/08/24 7. Patient/caregiver will demonstrate understanding of safe use of all equipment and all safety recommendations allowing pt to remain safely in home by 11/08/24 HH - Mobility and Activity Tolerance - Impaired Progressing No Interventions Intervention Associated Problem/Goal Status Variance Visit Notes HH - Assess need for community resources Problem: - Community Resources - Lack of Knowledge/Access Goal:HH - Demonstrate/verbaliz e knowledge of community resources Completed HH - Complete fall risk assessment scale Problem: - Falls - Risk of Goal: - Knowledge and management of fall prevention measures. Completed HH - Assess vital signs, pulse oximetry, [...] discharge from homecare Completed HH - Assess safety needs of patient (other than falls) Problem: - Standard of Care Goal:HH - Achieve care management for a safe to home/community discharge from homecare Completed HH - Assess pain Problem: - Pain Goal:HH - Frequency of pain interfering with patient's activity or movement will improve with activity or movement by discharge. Completed - I/E pain management Problem: - Pain Goal:HH - Frequency of pain interfering with patient's activity or movement will improve with activity or movement by discharge. Completed HH - I/E medication management: administration, purpose, [...] indicated. Pharmacy information: Description: [facility] [address] Problem:HH - Medication Management Goal:HH - Safe medication management, avoid unnecessary harm related to medication errors and/or interactions Completed HH - Focus of care, teaching completed and plan for next visit Problem:HH - Focus of Care and Teaching Goal:HH - Communication and collaboration to achieve patient goals Completed Primary Clinical Focus this Visit & Instruction Provided: PT Discipline Discharge Instruction Provided to: patient Response to Instruction/Teaching: Is fully able to teach back topics as evidenced by verbal understanding and demonstration. 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 - would like to return to prior level of function and independence Pain: denies pain Precautions: fall precaution with diminished strength, infection control with new ostomy Objective Measurements: AROM is within functional limits Strength is within functional limits except- mild generalized deconditioning with LE's 4/5 range ; at dc wdl Balance sitting normal standing static good+ dynamic was good ; at dc good+ Tinetti score: was 21/28 now 25/28 ; TUG score was 22 seconds now 16 seconds Gait- assistive device-wheeled walker ; at mi mod independent ambulation in home without assistive device; at community level std cane distance-room to room distances x 40-60 ft in the home home; ambulating short community distances 1000+ ft deviations- decreased julio ; at mi no significant gt deviations Physical Therapy Discipline Discharge Clinical Summary: 74 year old female who presented with impairments consistent with the admitting diagnosis of after hospitalization in [place] r/t colitis/sepsis, s/p lap colectomy and new ileostomy. Dc home with abx x2. Patient to ER previous month for c diff and treated with vanco. Returned to ER while at vacation home with diarhhea/ams. Patient also with electrolyte derangement during stay and KOBY, treated with IVF/supplements. Patient is a retired nurse with PMH including DM, PE (on xarelto), cardiomyopathy, CHF, hypthyroidism. Lives with attentive Claudio in senior community. Patient walking with new walker/assist. DEPARTMENT OF MATHEMATICS CHAIR added to assist with personal care. Patient alert and oriented. Denies pain. (none) or instructions for wound vac removal (none given, surgeon not back until Friday). Patient saw local surgeon this week. Patient with new urinary incontinence Meds reconciled. BLE with 1+ pitting edema. Saw cardiology and plan to continue on current lasix, anticipating fluid to come off slowly at home. Elevation reinforced. Patient takes weight daily r/t hx of chf. Rehab potential was good with skilled physical therapy intervention. Potential barriers to rehab include lack of patient participation, limited carryover with a home exercise program and activity modification recommendations, comorbidities resulting in medical complexity and potentially limiting patient's ability to participate in interventions. Primary impairments limiting function include: pain with ambulation, decreased strength and mobility, impaired activity tolerance, postural instability, ambulation endurance, gait mechanics, and balance. These impairments impact the patient's ability to perform activities of daily living and instrumental activities of daily living independently and safely. Since that time patient has been followed for HHPT services with steady improvement towards treatment goals. Pt is now modified independent with all functional mobility,independent with home program. Pt has returned to majority of prior level of activities and mobility. Treatment goals met and pt ready for transition to independent home program. Pt aware and in agreement with planned discipline discharge.PCP and Care Team notified of PT Discharge HH - I/E management of care in [...] an emergency related situation. Completed HH - Therapeutic interventions, as indicated: Description: balance training, durable medical equipment training, gait/stair training, home modification, therapeutic exercise/home exercise program and transfer training, including bathroom transfers Problem:HH - Mobility and Activity Tolerance - Impaired Goal:HH - Demonstrate maximum mobility and activity level for safe function Completed This visit -balance training, durable medical equipment training, gait/stair training, home modification, therapeutic exercise/home exercise program and transfer training, including bathroom transfers HH - I/E therapeutic function/activity: Description: As indicated: activity promotion and management, functional mobility training, therapeutic exercise and home exercise program, device use. Problem:HH - Mobility and Activity Tolerance - Impaired Goal:HH - Demonstrate maximum mobility and activity level for safe function Completed documented in this encounter Care Teams Bowling Alley Operator Relationship Specialty Start Date End Date Shawn Omer MD [address] [place] [address] PCP - General Internal Medicine 03/18/14 Kal An MD [address] [place] [address] Childcare Center Administrator Endocrinology 09/02/17 Shawn Omer MD [address] [place] [address] Insurance Assigned Provider 05/17/23 Laya Sandoval MD [address] [place] [phone] Endocrinology 05/24/19 Delaney Soriano NP [address] [place] [address] Cardiology 05/24/19 Toby Nelson MD [address] [facility] [place] [address] Hospitalist 12/10/19 documented as of this encounter Additional Source Comments The information contained in this document represents components of the legal health record. It is not the complete legal health record.[facility]
--- NOTE | 2024-11-04 13:00 | CA_ITS ---
Transthoracic Echocardiogram Patient (Last, First, Middle): Elsa Rhodes, Gender: Female Date of : 1950 Age: 74 Procedure Date: 11/04/2024 Procedure Type: Transthoracic Echocardiogram Location: OP Height: 162.56 cm Weight: 68.49 kg BSA: 1.74 m2 Heart Rate: 88 bpm BP: 110 / 55 mmHg Slurry Tank Operator: BRAYDEN Referring MD: Delaney Soriano VENETIAN BLIND MACHINE OPERATOR-C Group Cio: Agustin Garcia MD Symptoms: I42.9 - Cardiomyopathy, unspecified Study Quality: Adequate w contrast ECG Rhythm: Sinus Conclusions: - 1. Normal LV ejection fraction of 65-70% with grade 1 diastolic dysfunction 2. Cardiac valvular Dopplers within normal limits 3. Normal RV systolic pressure 4. No gross pericardial effusion Findings Procedure Information Contrast agent, definity, is being given per protocol without apparent complications. Left Ventricle Normal left ventricular size, thickness, and systolic function. The visually estimated ejection fraction is between 65-70%. Spectral Doppler is indicative of an impaired relaxation filling pattern. E/E prime ratio is <8, consistent with normal filling pressures. Evidence suggests grade I (mild) diastolic dysfunction. Right Ventricle Normal right ventricular cavity size and systolic function. There is an ICD wire seen in the right ventricle. Atria The left atrium is mildly dilated. There is no evidence of interatrial shunt. The right atrium is normal in size. Aortic Valve Normal aortic valve structure and function. There is no aortic valve stenosis. There is no aortic valve regurgitation. Mitral Valve Normal mitral valve structure and function. There is mild mitral annular calcification. There is trace mitral valve regurgitation. There is no mitral valve stenosis. Pulmonic Valve The pulmonic valve is likely normal. There is trace pulmonic valve regurgitation. Tricuspid Valve Normal tricuspid valve structure. There is trace tricuspid valve regurgitation. The right ventricular systolic pressure is normal. The right ventricular systolic pressure is 25 mmHg. Normal right atrial pressure. There is no evidence of pulmonary hypertension. Great Vessels All visible segments of the aorta are normal in size. The pulmonary artery was not well visualized. There is no dilatation of the ascending aorta measuring 3.00 cm. Venous The inferior vena cava is normal in size and collapses greater than 50% with inspiration. Pericardium/Pleural There is no evidence of pericardial effusion. Prior Study Comparison No significant change compared to prior study dated: 05/02/2022. Measurements 2D Linear Measurements IVSd: 0.86 0.6-0.9/0.6-1.0 cm LVIDd: 3.76 3.9-5.3/4.2-5.9 cm LVIDd Index: 2.16 2.4-3.2/2.2-3.1 cm/m2 LVIDs: 2.27 2.0-3.6 cm LVPWd: 1.07 0.7-1.1 cm LA Diam: 3.90 2.7-3.8/3.0-4.0 cm LAIDs Index: 2.24 1.5-2.3 cm/m2 LV Mass: 136.51 67-162/88-224 g LV Mass Index: 78.45 43-95/49-115 g/m2 LVOT Diam: 2.10 3.0+(-)1.3 cm 2D Systolic Function EF 4C: 64.30 >55% EF 2C: 70.50 >55% EF BiP: 67.00 >55% Mitral Valve MV Pk E: 0.52 MV PK A: 0.78 MV Decel Time: 216.00 E/A: 0.70 E'Lateral: 6.53 E'Medial: 4.13 E/E' Med: 12.50 E/E' Lat: 7.90 PHT: 63.00 MVA PHT: 3.49 Decel Smyth: 2.40 Aortic Valve AoV Pk Ramakrishna: 1.34 AoV Mn Ramakrishna: 0.94 AoV VTI: 0.23 AoV Pk Grad: 7.00 Aov Mn Grad: 4.00 RUBENS Cont.VTI: 2.48 LVOT LVOT Pk Ramakrishna: 0.92 LVOT Mn Ramakrishna: 0.55 LVOT VTI: 0.16 LVOT Pk Grad: 3.00 LVOT Mn Grad: 1.00 LVOT Diam: 2.10 LVOT Area: 3.46 Diastolic Function MV Pk E: 0.52 MV Pk A: 0.78 E/A: 0.70 E'Medial: 4.13 E/E' Med: 12.50 E' Laterial: 6.53 E/E' Lat: 7.90 Right Ventricle TAPSE (mm): 22.80 TVS' Ramakrishna: 11.60 Tricuspid Valve TR Pk Ramakrishna: 2.36 TR Pk Grad: 22.00 RA Press: 3.00 RVSP: 25.00 Great Vessels Aorta Sinus of Valsalva: 3.25 2.0-3.[address] Ridge: 2.29 1.7-3.4 cm Ao Asc: 3.00 2.1-3.4 cm Pulmonary Veins Pulm Vein S/D 1.20 Updated in Other Vendor System with Status of Final Agustin Garcia MD electronically signed on 11/04/2024 4:30:13 PM with status of Final
--- OUTSIDE RECORDS SUMMARY | 2024-11-04 17:41 | XMS_ITS | Encounter Summary ---
Author Organization [facility] Address [address] [facility] [address] [place] [address] Phone Care Team Providers Care Diversified Crops Farmer Name Role Phone Shawn Omer MD Primary Care Provider [phone] Kal An MD Unavailable [phone] Shawn Omer MD Unavailable Laya Sandoval MD Unavailable Delaney Soriano NP Unavailable Toby Nelson MD Unavailable [phone] Encounter Details Date Type Department Care Team (Late st Contact Info) Description 08/25/2024 Telephone [facility] [address] [place], [place] [phone] Shawn Omer MD 40 [place] [address] [email or web address] Social History Tobacco Use Types Packs/Day Years [...] 11/05/2024 5:00 AM EDT Home Care Visit [facility] [address] [place] [address] Alma Singh RN [address] [place] [address] [email or web address] 11/08/2024 1:30 AM EDT Home Care Visit [facility] [address] [place] [address] Leslie Lo RN [address] [place] [address] [email or web address] 11/11/2024 12:30 AM EDT Home Care Visit [facility] [address] [place] [address] Leslie Lo RN [address] [place] [address] [email or web address] 11/15/2024 1:30 AM EDT Home Care Visit [facility] [address] [place] [phone] Leslie Lo RN [address] [place] [address] 11/16/2024 8:40 AM EDT Office Visit [facility] [address] [place] [address] Suki Altman PA-C 22 [place] [address] 11/18/2024 Home Care Visit [facility] [address] [place] [phone] Leslie Lo RN [address] [place] [address] 11/22/2024 Home Care Visit [facility] [address] [place] [phone] Leslie Lo RN [address] [place] [address] 11/25/2024 Appointment [facility] [address] [place] [phone] Leslie Lo RN [address] [place] [address] 12/22/2024 9:30 AM EST Office Visit [facility] Internal Medicine [address] [place] [address] Shawn Omer MD 40 [place] [address] 03/14/2025 8:20 AM EST Office Visit [facility] Endocrinology [place] [address] [place] [address] Laya Sandoval MD [address] [address] [email or web address] documented as of this encounter Visit Diagnoses Not on filedocumented in this encounter Additional Health Concerns Assessment Noted Time PHQ-2 Depression Total Score: 0 12/14/19 24 1:10 PM EST documented as of this encounter Care Teams Diversified Crops Farmer Relationship Specialty Start Date End Date Shawn Omre MD 40 [place] [address] [email or web address] PCP - General Internal Medicine 03/18/14 Kal An MD [address] [place] [address] Dyehouse Worker Endocrinology 09/02/17 Shawn Omer MD 40 [place] [address] [email or web address] Insurance Assigned Provider 05/17/23 Laya Sandoval MD [address] [address] [email or web address] Endocrinology 05/24/19 Delaney Soriano NP [address] [place] [address] Cardiology 05/24/19 Toby Nelson MD [address] [facility] [place] [address] Hospitalist 12/10/19 documented as of this encounter Additional Source Comments The information contained in this document represents components of the legal health record. It is not the complete legal health record.[facility]
--- OUTSIDE RECORDS SUMMARY | 2024-11-04 17:41 | XMS_ITS | Encounter Summary ---
Author Organization [facility] Address [address] [facility] [address] [place] [address] Phone Care Team Providers Care Sales Representative Meats Name Role Phone Shawn Omer MD Primary Care Provider [phone] Kal An MD Unavailable Shawn Omer MD Unavailable Laya Sandoval MD Unavailable Delaney Soriano NP Unavailable Toby Nelson MD Unavailable [phone] Reason for Visit * Reason Onset Date Comments Appointment 09/29/2024 tcm Encounter Details Date Type Department Care Team ([facility] st Contact Info) Description 09/29/2024 Telephone [facility] [facility] Medicine [address] [place], [place] [phone] Shawn Omer MD 40 [place] [address] [email or web address] Appointment (tcm) Social History Tobacco Use Types [...] a hard time getting home Pt needs senior care PT and OT. Requesting PCP to [email or web address] today Central Support Front Office Specialist (Please do not reply to this user; this inbox is not monitored.) Thank you. * Jana Chavez - 09/29/2024 1:22 PM EDT Spoke to patient and she has been scheduled for a TCM tomorrow 09/30 with Joe. Called Roxi at [facility] requested discharge notes to be faxed to our office KATHLEEN . Needs med rec. * Annette Tiwari - 09/29/2024 12:37 PM EDT Roxi called back stating pt discharged and to call her personally.Please contact and advise Central Support Front Office Specialist (Please do not reply to this user; this inbox is not monitored.) Thank you. * Sona Banks - 09/29/2024 12:21 PM EDT LVM for Roxi to call back and schedule. * Annette Tiwari - 09/29/2024 9:46 AM EDT Transitional Care Management New Patient: YES/NO: yes Hospitalization Name: [facility] Discharge Date:09/29/24 Reason for Visit+ Diagnosis:clostomy Is [...] from discharge date Additional Note (if applicable): [facility] CSS [facility] (Please do not reply to this user, as this inbox is not monitored. Thank you.) Thank you. documented in this encounter Plan of Treatment Upcoming Encounters Date Type Department Care Team (Late st Contact Info) Description 11/05/2024 5:00 AM EDT Home Care Visit [facility] [address] [place] [phone] Alma Singh RN [address] [place] [address] 11/08/2024 1:30 AM EDT Home Care Visit [facility] [address] [place] [phone] Leslie Lo RN [address] [place] [address] [email or web address] 11/11/2024 12:30 AM EDT Home Care Visit [facility] [address] [place] [phone] Leslie Lo RN [address] [place] [address] 11/15/2024 1:30 AM EDT Home Care Visit [facility] [address] [place] [phone] Leslie Lo RN [address] [place] [address] [email or web address] 11/16/2024 8:40 AM EDT Office Visit [facility] 22 [place] [address] Suki Altman PA-C 22 [place] [address] 11/18/2024 Home Care Visit [facility] [address] [place] [phone] Leslie oL RN [address] [place] [address] 11/22/2024 Home Care Visit [facility] [address] [place] [address] Leslie Lo RN [address] [place] [address] [email or web address] 11/25/2024 Appointment [facility] [address] [place] [address] Leslie Lo RN [address] [place] [address] [email or web address] 12/22/2024 9:30 AM EST Office Visit [facility] Internal Medicine 40 [place], [place] [phone] Shawn Omer MD 40 [place] [address] [email or web address] 03/14/2025 8:20 AM EST Office Visit [facility] Endocrinology [place] [address] [place] [phone] Laya Sandoval MD [address] [place] [address] [email or web address] documented as of this encounter Visit Diagnoses Not on filedocumented in this encounter Additional Health Concerns Assessment Noted Time PHQ-2 Depression Total Score: 0 12/14/19 24 1:10 PM EST documented as of this encounter Care Teams Sales Representative Meats Relationship Specialty Start Date End Date Shawn Omer MD [address] [place] [address] [email or web address] PCP - General Internal Medicine 03/18/14 Kal An MD [address] [place] [address] Oven Loader Endocrinology 09/02/17 Shawn Omer MD [address] [place] [address] Insurance Assigned Provider 05/17/23 Laya Sandoval MD [address] [address] [email or web address] Endocrinology 05/24/19 Delaney Soriano NP [address] [place] [address] Cardiology 05/24/19 Toby Nelson MD 3300 [facility] [place] [address] Hospitalist 12/10/19 documented as of this encounter Additional Source Comments The information contained in this document represents components of the legal health record. It is not the complete legal health record.[facility]
--- OUTSIDE RECORDS SUMMARY | 2024-11-04 17:41 | XMS_ITS | Encounter Summary ---
Author Organization [facility] Address [address] [facility] [address] [place] [address] Phone Care Team Providers Care Depositing Machine Operator Name Role Phone Shawn Omer MD Primary Care Provider Brianna Rodriguez GRADING CLERK Unavailable Unavailable Shawn Omer MD Unavailable Markell Beltre MD Unavailable Nohemi Fuentes GRADING CLERK Unavailable Leann Simons GRADING CLERK Unavailable Kal An MD Unavailable Shawn Omer MD Unavailable Laya Sandoval MD Unavailable Delaney Soriano NP Unavailable Toby Nelson MD Unavailable [phone] Reason for Referral * Consultation (Elective) - Closed Specialty Diagnoses / Procedures Referred By Mary Alice diaz Referred To Contact Neurology Diagnoses Autonomic neuropathy System, Provider Not In, PhD [id number] [place] [phone] Phone: tel: Referral ID Status Reason Start Date Expiration Date Visits Re quested Visits Authorized [id number] Closed 10/19/2018 10/20/2019 1 1 Encounter Details Date Type Department Care Team (Late Contact Info) Description 10/19/2018 Transcribe Orders [facility] Department of Neurology [address] [facility], 8th Floor, [address] [place] [address] System, Provider Not In, PhD Partners [address] [address] Autonomic neuropathy (Primary Dx) Social History Tobacco [...] Department Care Team (Late Contact Info) Description 11/05/2024 5:00 AM EDT Home Care Visit [facility] [address] [place] [address] Alma Singh RN [address] [place] [address] 11/08/2024 1:30 AM EDT Home Care Visit [facility] [address] [place] [address] Leslie Lo RN [address] [place] [address] 11/11/2024 12:30 AM EDT Home Care Visit [facility] [address] [place] [address] Leslie Lo RN [address] [place] [address] 11/15/2024 1:30 AM EDT Home Care Visit [facility] [address] [place] [address] Leslie Lo RN [address] [place] [address] 11/16/2024 8:40 AM EDT Office Visit [facility] [address] [place] [address] Suki Altman PA-C 22 [place] [address] 11/18/2024 Home Care Visit [facility] [address] [place] [phone] Leslie Lo RN [address] [place] [address] 11/22/2024 Home Care Visit [facility] [address] [place] [phone] Leslie Lo RN [address] [place] [address] 11/25/2024 Appointment [facility] [address] [place] [phone] Leslie Lo RN [address] [place] [address] 12/22/2024 9:30 AM EST [facility] Visit [facility] [address] [place] [address] Shawn Omer MD 40 [place] [address] 03/14/2025 8:20 AM EST Office Visit [facility] Endocrinology [place] [address] [place] [phone] Laya Sandoval MD [address] [address] [email or web address] Scheduled Referrals Name Type Priority Associated Diagnoses Order Schedule Ambulatory referral to [facility] Neurology Outpatient Referral Routine Autonomic neuropathy Ordered: [...] documented as of this encounter Care Teams Depositing Machine Operator Relationship Specialty Start Date End Date Shawn Omer MD 40 [place] [address] [email or web address] PCP - General Internal Medicine 03/18/14 Brianna Rodriguez GRADING CLERK [address] [place] [address] Historical LMR Provider 11/25/1605/11 Shawn Omer MD 40 [place] [address] [email or web address] Historical LMR Provider 11/25/16 05/23/19 Markell Beltre MD [address] [place] [address] [email or web address] Historical LMR Provider 11/25/16 Nohemi Fuentes NP [address] [place] [address] Historical LMR Provider 11/25/16 Leann Simons GRADING CLERK [address] [place] [address] Historical LMR Provider 11/25/16 05/23/19 Kal An MD [address] [place] [address] Signal Tester Endocrinology 09/02/17 Shawn Omer MD [address] [place] [address] Insurance Assigned Provider 05/17/23 Laya Sandoval MD [address] [place] [address] Endocrinology 05/24/19 Delaney Soriano NP [address] [place] [address] Cardiology 05/24/19 Toby Nelson MD [address]00 [facility] [place] [address] Hospitalist 12/10/19 documented as of this encounter Additional Source Comments The information contained in this document represents components of the legal health record. It is not the complete legal health record.[facility]
--- OUTSIDE RECORDS SUMMARY | 2024-11-04 17:41 | XMS_ITS | Encounter Summary ---
Author Organization [facility] Address [address] [address] Phone Care Team Providers Care Assembly Riveter Name Role Phone Shawn Omer MD Primary Care Provider Brianna Rodriguez ATHLETIC EVENTS SCORER Unavailable Unavailable Shawn Omer MD Unavailable Markell Beltre MD Unavailable [phone] Nohemi Fuentes ATHLETIC EVENTS SCORER Unavailable Leann Simons ATHLETIC EVENTS SCORER Unavailable Kal An MD Unavailable Shawn Omer MD Unavailable Laya Sandoval MD Unavailable [phone] Delaney Soriano NP Unavailable Toby Nelson MD Unavailable [phone] Reason for Referral * Consultation (Elective) - Closed Specialty Diagnoses / Procedures Referred By Mary Alice diaz Referred To Contact Gastroenterology Diagnoses Diarrhea, unspecified type System, Provider Not In, PhD Partners [address] [address] Quirino Curiel MD Phone: tel: fax: mailto:[email or web address] Referral ID Status Reason Start Date Expiration Date Visits Re quested Visits Authorized [id number] Closed 11/06/2018 11/07/2019 1 1 Encounter Details Date Type Department Care Team (Latest Contact Info) Description 11/06/2018 Transcribe Orders [facility] [address] [place] [address] Quirino Curiel MD [address] [place] [address] [email or web address] Diarrhea, unspecified type (Primary Dx) Social History [...] 5:00 AM EDT Home Care Visit [facility] [address] [place] [address] Alma Singh RN [address] [place] [address] 11/08/2024 1:30 AM EDT Home Care Visit [facility] [address] [place], [place] [phone] Leslie Lo RN [address] [place] [address] 11/11/2024 12:30 AM EDT Home Care Visit [facility] [address] [place], [place] [phone] Leslie Lo RN [address] [place] [address] 11/15/2024 1:30 AM EDT Home Care Visit [facility] [address] [place] [phone] Leslie Lo RN [address] [place] [address] 11/16/2024 8:40 AM EDT Office Visit [facility] 22 [place] [address] Suki Altman PA-C 22 [place] [address] 11/18/2024 Home Care Visit [facility] [address] [place] [address] Leslie Lo RN [address] [place] [address] 11/22/2024 Home Care Visit [facility] [address] [place] [phone] Leslie Lo RN [address] [place] [address] 11/25/2024 Appointment [facility] [address] [place] [phone] Leslie Lo RN [address] [place] [address] 12/22/2024 9:30 AM EST Office Visit [facility] Internal Medicine [address] [place] [address] Shawn Omer MD 40 [place] [address] 03/14/2025 8:20 AM EST Office Visit [facility] Endocrinology [place] [address] [place] [address] Laya Sandoval MD [address] [place] [address] [email or web address] Scheduled Referrals Name Type Priority Associated Diagnoses Order Schedule Ambulatory referral to [facility] (Consult Requests Only) Outpatient Referral Routine [...] documented as of this encounter Care Teams Assembly Riveter Relationship Specialty Start Date End Date Shawn Omer MD 40 [place] [address] [email or web address] PCP - General Internal Medicine 03/18/14 Brianna Rodriguez ATHLETIC EVENTS SCORER [address] [place] [address] Historical LMR Provider 11/25/1605/11 Shawn Omer MD 40 [place] [address] [email or web address] Historical LMR Provider 11/25/16 05/23/19 Markell Beltre MD [address] [place] [address] [email or web address] Historical LMR Provider 11/25/16 Nohemi Fuentes NP [address] [address] Historical LMR Provider 11/25/16 Leann Simons NP [address] [place] [address] Historical LMR Provider 11/25/16 05/23/19 Kal An MD [address] [place] [address] Cardiology Coordinator Endocrinology 09/02/17 Shawn Omer MD [address] [place] [address] Insurance Assigned Provider 05/17/23 Laya Sandoval MD [address] [place] [address] Endocrinology 05/24/19 Delaney Soriano NP [address] [place] [address] Cardiology 05/24/19 Toby Nelson MD [facility] [place] [address] Hospitalist 12/10/19 documented as of this encounter Additional Source Comments The information contained in this document represents components of the legal health record. It is not the complete legal health record.[facility]
--- OUTSIDE RECORDS SUMMARY | 2024-11-04 17:41 | XMS_ITS | Encounter Summary ---
Author Organization [facility] Address [address] [address] Phone Care Team Providers Care Concession Attendant Name Role Phone Shawn Omer MD Primary Care Provider Brianna Rodriguez SALOONKEEPER Unavailable Unavailable Shawn Omer MD Unavailable Markell Beltre MD Unavailable [phone] Nohemi Fuentes SALOONKEEPER Unavailable Leann Simons SALOONKEEPER Unavailable [phone] Kal An MD Unavailable Shawn Omer MD Unavailable Laya Sandoval MD Unavailable Delaney Soriano NP Unavailable Toby Nelson MD Unavailable [phone] Encounter Details Date Type Department Care Team (Late st Contact Info) Description 02/12/2019 Procedure Pass [facility] Endoscopy Admitting Dept Virtual Department [address] [place] [address] Social History Tobacco Use Types [...] 5:00 AM EDT Home Care Visit [facility] [address] [place] [phone] Alma Singh RN [address] [place] [address] 11/08/2024 1:30 AM EDT Home Care Visit [facility] [address] [place] [phone] Leslie Lo RN [address] [place] [address] [email or web address] 11/11/2024 12:30 AM EDT Home Care Visit [facility] [address] [place] [phone] Leslie Lo RN [address] [place] [address] [email or web address] 11/15/2024 1:30 AM EDT Home Care Visit [facility] [address] [place] [address] Leslie Lo RN [address] [place] [address] [email or web address] 11/16/2024 8:40 AM EDT Office Visit [facility] [address] [place] [address] Suki Altman PA-C 22 [place] [address] 11/18/2024 Home Care Visit [facility] [address] [place] [phone] Leslie Lo RN [address] [place] [address] 11/22/2024 Home Care Visit [facility] [address] [place], [place] [phone] Leslie Lo RN [address] [place] [address] 11/25/2024 Appointment [facility] [address] [place], [place] [phone] Leslie Lo RN [address] [place] [address] 12/22/2024 9:30 AM EST Office Visit [facility] Internal Medicine [address] [place] [address] Shawn Omer MD [address] [place] [address] [email or web address] 03/14/2025 8:20 AM EST Office Visit [facility] Endocrinology [place] [address] [place] [phone] Laya Sandoval MD [address] [place] [address] [email or web address] documented as of this encounter Visit Diagnoses Not on filedocumented in this encounter Additional Health Concerns Infection Onset Date Last Indicated Resolved Time 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 close contact 12/31/2019 12/31/2019 01/14/2020 1:23 AM EST Assessment Noted Time PHQ-2 Depression Total Score: 2 12/02/19 19 8:37 AM EDT documented as of this encounter Care Teams Concession Attendant Relationship Specialty Start Date End Date Shawn Omer MD [address] [place] [address] [email or web address] PCP - General Internal Medicine 03/18/14 Brianna Rodriguez NP [address] [place] [address] Historical LMR Provider 11/25/1605/11 Shawn Omer MD [address] [place] [address] [email or web address] Historical LMR Provider 11/25/16 05/23/19 Markell Beltre MD [address] [place] [address] [email or web address] Historical LMR Provider 11/25/16 Nohemi uFentes NP [address] [place] [address] Historical LMR Provider 11/25/16 Leann Simons NP [address] [place] [address] [email or web address] Historical LMR Provider 11/25/16 05/23/19 Kal An MD [address] [place] [address] [employer] Endocrinology 09/02/17 Shawn Omer MD [address] [place] [address] [email or web address] Insurance Assigned Provider 05/17/23 Laya Sandoval MD [address] [address] [email or web address] Endocrinology 05/24/19 Delaney Soriano NP [address] [place] [address] Cardiology 05/24/19 Toby Nelson MD [facility] [place] [address] Hospitalist 12/10/19 documented as of this encounter Additional Source Comments The information contained in this document represents components of the legal health record. It is not the complete legal health record.[facility]
--- OUTSIDE RECORDS SUMMARY | 2024-11-04 17:42 | XMS_ITS | Patient Health Record ---
Author Organization [facility] Address [address] [place] [address] Care Team Providers Care Curtain Inspector Name Role Phone Shawn Omer MD Primary Care Provider Unavaila ble Black, Sadie Unavailable [phone] Allergies Allergen (clinical drug ingredient) Drug/Non Drug [...] Polyneuropathy due to type 2 diabetes mellitus (863698267) Type 2 diabetes mellitus with diabetic polyneuropathy (E11.42) Active confirmed Vital Signs Blood pressure diastolic 84 mm Hg 09/16/2024 Height 5ft 3in in 09/16/2024 Blood pressure systolic 124 mm Hg 09/16/2024 Weight 151 lbs 09/16/2024 BMI 26.75 kg/m2 09/16/2024 Procedures Procedure Date Ordered Date Performed Result Body Sit e 08323-Mcyb Destruction, 1-14 11/25/2023 N/A 37155-ZAWU SKIN LESIONS, OVER 4 11/25/2023 N/A G7467-JHASUWAE DYSTROPHIC NAILS ANY # 11/25/2023 N/A 65346-Bojj Destruction, 1-14 02/26/2024 N/A 24116-PGVK SKIN LESIONS, OVER 4 02/26/2024 N/A Q2646-BYUTREDU DYSTROPHIC NAILS ANY # 02/26/2024 N/A 17563-Ynmt Destruction, 1-14 06/03/2024 N/A 74062-JZUY SKIN LESIONS, OVER 4 06/03/2024 N/A P7698-QPEMNDHG DYSTROPHIC NAILS ANY # 06/03/2024 N/A 58699-Geer Destruction, 1-14 09/16/2024 N/A 80071-IWCC SKIN LESIONS, OVER 4 09/16/2024 N/A Q8854-CPVDVXTD DYSTROPHIC NAILS ANY # 09/16/2024 N/A Encounters Encounter Location Date Provider Diagnosis [address] [address] 11/25/2023 Sadie Black Type 2 diabetes mellitus with diabetic polyneuropathy E11.42 ; Other viral warts B07.8 and Pain in left foot M79.[address] [address] 02/26/2024 Sadie Black Type 2 diabetes mellitus with diabetic polyneuropathy E11.42 ; Other hammer toe(s) (acquired), right foot M20.41 ; Other viral warts B07.8 ; Pain in left foot M79.672 and Other hammer toe(s) (acquired), left foot M20.[address] [address] 06/03/2024 Sadie Black Type 2 diabetes mellitus with diabetic polyneuropathy E11.42 ; Other viral warts B07.8 and Pain in left foot M79.[address] [address] 09/16/2024 Sadie Black Type 2 diabetes mellitus [...] Treatment Pending Test Test Name Order Date 21194-LECRKEB NAIL, 6 OR MORE 02/24/2013 23433-AQOMQMG NAIL, 6 OR MORE 08/16/2013 29173-BWDBXHL NAIL, 6 OR MORE 05/12/2013 05309-Ryzh Destruction, 1-14 06/03/2019 71392-Udtd Destruction, 1-14 08/30/2019 33213-Tqrf Destruction, 1-14 12/06/2019 59909-Hlbl Destruction, 1-14 03/09/2020 25011-Ksxl Destruction, -14 06/08/2020 59180-Guuv Destruction, -14 09/11/2020 55769-Lacq Destruction, -14 12/21/2020 17746-Hqng Destruction, -14 04/16/2021 86559-Jemr Destruction, -14 08/23/2021 50022-Ntze Destruction, -14 03/04/2022 10252-Vnva Destruction, -14 06/06/2022 46071-Vdzb Destruction, -14 09/19/2022 91333-Cguj Destruction, -14 12/23/2022 91431-Scof Destruction, -03/24/2023 77471-Klys Destruction, 02-2306/23/2023 98807-Uqfl Destruction, 02-2311/25/2023 10833-Lyie Destruction, -02/26/2024 49161-Netf Destruction, -06/03/2024 43646-Uyfl Destruction, 02-2309/16/2024 84257-Eyrvpyis Plate 06/06/2022 22689-Xmmcdlwz Plate 11/26/2021 41815-Ahmlansw Plate 12/21/2020 06426-Oahnhikl Plate 06/08/2020 51973-Jxqxzlsy Plate 09/11/2020 35133-Cnqrlfjl Plate 03/09/2020 12018-Mxjrmxxi Plate 05/12/2013 35544-Ahbkhmxr Plate 08/16/2013 12929-Xwzlkson Plate 02/24/2013 84732-Nvfewgwg Plate Each Additional 03/2013 68900-Myuozkzj Plate Each Additional 12/2020 72820-WRBL SKIN LESIONS, OVER 4 09/17/19 20075-XEQV SKIN LESIONS, OVER 4 06/04/19 25 74574-HMLZ SKIN LESIONS, OVER 4 02/25/19 03050-DNHB SKIN LESIONS, OVER 4 05/10/19 15 90554-DIGI SKIN LESIONS, OVER 4 02/14/19 15 54884-VOWI SKIN LESIONS, OVER 4 11/25/19 24 33421-UQQM SKIN LESIONS, OVER 4 06/23/19 24 28319-LMIX SKIN LESIONS, OVER 4 03/24/19 24 98116-LRGM SKIN LESIONS, 2 TO 4 09/20/19 10903-TXIR SKIN LESIONS, 2 TO 4 06/07/19 71540-FEQV SKIN LESIONS, 2 TO 4 03/04/19 80981-AJVD SKIN LESIONS, 2 TO 4 09/12/19 05437-XTMC SKIN LESIONS, 2 TO 4 12/22/19 51644-JFYP SKIN LESIONS, 2 TO 4 11/27/19 61825-KCKJ SKIN LESIONS, 2 TO 4 08/24/19 77768-FKAJ SKIN LESIONS, 2 TO 4 04/17/19 21813-QIMC SKIN LESIONS, 2 TO 4 02/23/19 21597-BTSD SKIN LESIONS, 2 TO 4 08/25/19 43436-WDCW SKIN LESIONS, 2 TO 4 06/09/19 99080-BUIA SKIN LESIONS, 2 TO 4 03/09/19 48565-HNCR SKIN LESIONS, 2 TO 4 12/06/19 45332-CCSJ SKIN LESIONS, 2 TO 4 08/30/19 36872-ICJC SKIN LESIONS, 2 TO 4 06/03/19 45639-LNOG SKIN LESIONS, 2 TO 4 11/27/19 58893-EGPT SKIN LESIONS, 2 TO 4 03/04/19 22870, B0012-OVJMS/INJECT, JOINT/BURSA 1 03/16/2012 I9089-KLLBSIDJ DYSTROPHIC NAILS ANY # X6623-HRJPVNPK DYSTROPHIC NAILS ANY # W6753-KQPXROQH DYSTROPHIC NAILS ANY # T0846-CKVCNVVX DYSTROPHIC NAILS ANY # P9168-SLLRQRAK DYSTROPHIC NAILS ANY # L6289-EBWVSFOK DYSTROPHIC NAILS ANY # O0524-ZLOAVGIG DYSTROPHIC NAILS ANY # H5569-LUSHDULN DYSTROPHIC NAILS ANY # I4707-FOKQNKUO DYSTROPHIC NAILS ANY # Y6049-AGHLVJSR DYSTROPHIC NAILS ANY # D2296-WBXVHZCV DYSTROPHIC NAILS ANY # W8518-PUMXBJLR DYSTROPHIC NAILS ANY # P7491-YEYEZJIV DYSTROPHIC NAILS ANY # N7052-KXQARGQP DYSTROPHIC NAILS ANY # Q0324-WXUMPNMA DYSTROPHIC NAILS ANY # X6513-GLUHBNKM DYSTROPHIC NAILS ANY # K2109-IJKYEHWS DYSTROPHIC NAILS ANY # X4887-HHMWVLEJ DYSTROPHIC NAILS ANY # A6617-DHPHFFXV DYSTROPHIC NAILS ANY # A3103-QFLGITVG DYSTROPHIC NAILS ANY # U2410-BQWGDDCS DYSTROPHIC NAILS ANY # R9465-MBUDDVGA DYSTROPHIC NAILS ANY # K4854-NAPJCWAA DYSTROPHIC NAILS ANY # E0818-INSIURJB DYSTROPHIC NAILS ANY # U2938-KOZGFPGN DYSTROPHIC NAILS ANY # O4896-WOXSJWBE DYSTROPHIC NAILS ANY # X ray : Ankle, right 3V 12/02/2012 Next Appt Details Provider Name:Sadie Jang , 12/16/2024 08:30:00 AM, [address] [place] [address], [phone], Insurance Providers Payer Name Payer Address Payer Phone Subscriber Number Group Number Insured Name Patient Relationship to Insured Coverage Start Date Coverage End Date Medicare National Govt [employer] [address] [place] [address] [id number] Elsa Rhodes Self - patient is the insured [employer] [address] [place] [address] [phone] [id number] Elsa Rhodes Self - patient is [...] 06/18/23 Colonoscopy 10/20/23 Hospitalization History Reason Date(Month/Year) [place] [facility]: C-diff 09/04/24 [facility]/ Blood Pressure 03/28/21 [facility] - Low blood pressure- fluids replacement 10/31 [facility]- low BP 04/06/20 [facility]- nausea,blo od pressure, vomiting, and [facility] - fell- fractured ankle 09/14/2019 [facility]4 day stay 9 [facility] [place] vomiting/diarrhea/dehydration 04/12- 04/16/18 Admitted to [facility]; pulminay emb sosa x 5 days 01/12/14-01/17/14
--- OUTSIDE RECORDS SUMMARY | 2024-11-04 17:42 | XMS_ITS | Encounter Summary ---
Author Organization [facility] Address [address] [employer] [facility] [address] [place] [address] Phone Care Team Providers Care Sleeping Bag Filler Name Role Phone Shawn Omer MD Primary Care Provider Kal An MD Unavailable [phone] Shawn Omer MD Unavailable [phone] Laya Sandoval MD Unavailable [phone] Delaney Soriano NP Unavailable Toby Nelson MD Unavailable [phone] Encounter Details Date Type Department Care Team (Latest Contact Info) Description 06/15/2020 Transcribe Orders Virtual Department [address] [place] [address] Kal Ramirez MD [address] [place] [address] [email or web address] Nausea and vomiting, intractability of vomiting not [...] Care Visit [facility] [address] [place] [phone] Alma Singh RN [address] [place] [address] 11/08/2024 1:30 AM EDT Home Care Visit [facility] [address] [place] [phone] Leslie Lo RN [address] [place] [address] 11/11/2024 12:30 AM EDT Home Care Visit [facility] [address] [place] [phone] Leslie Lo RN [address] [place] [address] 11/15/2024 1:30 AM EDT Home Care Visit [facility] [address] [place] [phone] Leslie Lo RN [address] [place] [address] 11/16/2024 8:40 AM EDT Office Visit [facility] 22 [place] [address] Suki Altman PA-C 22 [place] [address] 11/18/2024 Home Care Visit [facility] [address] [place] [phone] Leslie Lo RN [address] [place] [address] 11/22/2024 [facility] [address] [place] [phone] Leslie Lo, SAUD [address] [place] [address] 11/25/2024 Appointment [facility] [address] [place] [phone] Leslie Lo RN [address] [place] [address] 12/22/2024 9:30 AM EST Office Visit [facility] Internal Medicine [address] [place] [address] Shawn Omer MD [address] [place] [address] 03/14/2025 8:20 AM EST Office Visit [facility] Endocrinology [place] [address] [place] [phone] Laya Sandoval MD [address] [place] [address] [email or web address] documented as of this encounter Visit Diagnoses Diagnosis Nausea and vomiting, intractability of vomiting not specified, unspecified vomiting type- Primary documented in this encounter Additional Health Concerns Assessment Noted Time PHQ-2 Depression Total Score: 0 04/12/19 21 9:12 AM EST documented as of this encounter Care Teams Sleeping Bag Filler Relationship Specialty Start Date End Date Shawn Omer MD [address] [place], [place] [phone] [email or web address] PCP - General Internal Medicine 03/18/14 Kal An MD [address] [place] [address] Tobacco Stripper Endocrinology 09/02/17 Shawn Omer MD [address] [place] [address] [email or web address] Insurance Assigned Provider 05/17/23 Laya Sandoval MD [address] [address] Endocrinology 05/24/19 Delaney Soriano NP [address] [place] [address] Cardiology 05/24/19 Toby Nelson MD [address] [place] [address] Hospitalist 12/10/19 documented as of this encounter Additional Source Comments The information contained in this document represents components of the legal health record. It is not the complete legal health record.[facility]
--- OUTSIDE RECORDS SUMMARY | 2024-11-04 17:42 | XMS_ITS | Encounter Summary ---
Author Organization [facility] Address [address] [place] [address] Care Team Providers Care Single Corner Cutter Name Role Phone Unknown, Provider Primary Care Provider Unava ilable Encounter Details Date Type Department Care Team (Late st Contact Info) Description 08/23/2024 Lab Requisition [facility] Pathology & Laboratory Medicine - [facility] [address] [place], [place] [id number] Outr Resulting Lab, Provider Social History Tobacco [...] Salmonella PCR Negative Negative 08/24/2024 14:47 EDT [facility] Shigella/Enteroin vasive E. coli Negative Negative 08/24/2024 14:47 EDT [facility] HN LAB CAMPYLOBACTER PCR Negative Negative 08/24/2024 14:47 EDT [facility] Shiga Toxin PCR Negative Negative 14:47 EDT [facility] Feces SPECIMEN FROM RECTUM / Unknown 08/23/2024 8:00 EDT 08/23/2024 22:21 EDT us Provider Outr Resulting Lab MICROBIOLOGY - GENER AL ORDERABLES Final Result Performing Organization Address [facility] Co de Phone Number [facility] [address] [place], [place] [address] * PARASITE SCREEN, STOOL (08/23/2024 8:00 EDT) Giardia and Cryptosporidium Cryptosporidium Antigen Neg and Giardia Antigen Neg Cryptosporidium Antigen Neg and Giardia Antigen Neg 12:09 EDT [facility] Feces SPECIMEN FROM RECTUM / Unknown 08/23/2024 8:00 EDT 08/23/2024 22:21 EDT us Provider Outr Resulting Lab MICROBIOLOGY - GENER AL ORDERABLES Final Result Performing Organization Address [facility] Co de Phone Number [facility] [address] [place] [address] documented in this encounter Visit Diagnoses Not on filedocumented in this encounter Care Teams Single Corner Cutter Relationship Specialty Start Date End Date Unknown, Provider, PCP - General 09/10/24 documented as of this encounter
--- OUTSIDE RECORDS SUMMARY | 2024-11-04 17:42 | XMS_ITS | Encounter Summary ---
Author Organization [facility] Address [address] [facility] [address] [place] [address] Phone Care Team Providers Care Oracle Distribution Consultant Name Role Phone Shawn Omer MD Primary Care Provider Brianna Rodriguez RETAIL WAREHOUSE ASSOCIATE Unavailable Unavailable Shawn Omer MD Unavailable Markell Beltre MD Unavailable [phone] Nohemi Fuentes RETAIL WAREHOUSE ASSOCIATE Unavailable Leann Simons RETAIL WAREHOUSE ASSOCIATE Unavailable [phone] Jie An MD Unavailable Shawn Omer MD Unavailable Laya Sandoval MD Unavailable Delaney Soriano NP Unavailable Toby Nelson MD Unavailable [phone] Reason for Referral * Outpatient Procedure - Closed Specialty Diagnoses / Procedures Referred By Mary Alice diaz Referred To Contact Radiology Diagnoses Ischemic colitis Autonomic neuropathy Nonsurgical dumping syndrome Procedures NM Gastric Emptying Jie Ramirez MD Phone: tel: fax: [email or web address] Referral ID Status Reason Start Date Expiration Date Visits Re quested Visits Authorized [id number] Closed 05/20/2018 05/20/2019 1 1 Encounter Details Date Type Department Care Team (Latest Contact Info) Description 05/20/2018 Transcribe Orders Virtual Department [address] [place] [address] Jie Ramirez MD [address] [place] [address] Ischemic colitis (Primary Dx); Autonomic neuropathy; Nonsurgical [...] 11/05/2024 5:00 AM EDT Home [facility] Visit [facility] [address] [place] [address] Alma Singh RN [address] [place] [address] 11/08/2024 1:30 AM EDT Home Care Visit [facility] [address] [place], [place] [phone] Leslie Lo RN [address] [place] [address] [email or web address] 11/11/2024 12:30 AM EDT Home Care Visit [facility] [address] [place] [address] Leslie Lo RN [address] [place] [address] 11/15/2024 1:30 AM EDT Home Care Visit [facility] [address] [place] [phone] Leslie Lo RN [address] [place] [address] 11/16/2024 8:40 AM EDT Office Visit [facility] 22 [place] [address] Suki Altman PA-C 22 [place] [address] 11/18/2024 Home Care Visit [facility] [address] [place] [phone] Leslie Lo RN [address] [place] [address] 11/22/2024 Home Care Visit [facility] [address] [place] [phone] Leslie Lo RN [address] [place] [address] 11/25/2024 Appointment [facility] [address] [place] [phone] Leslie Lo RN [address] [place] [address] 12/22/2024 9:30 AM EST Office Visit [facility] Internal Medicine [address] [place] [address] Shawn Omer MD 40 [place] [address] 03/14/2025 8:20 AM EST Office Visit [facility] Endocrinology [place] 40 [facility] [place] [address] Laya Sandoval MD [address] [place] [address] [email or web address] documented as of this encounter Results * [...] IMAGES/FRAMES POS - [id number] Jie Ramirez MD [facility] Final Result * NM GASTRIC EMPTYING SOLID [...] dumping POS - [id number] Jie Ramirez MD [facility] Final Result documented in this encounter [...] documented as of this encounter Care Teams Oracle Distribution Consultant Relationship Specialty Start Date End Date Shawn Omer MD [address] [place] [address] [email or web address] PCP - General Internal Medicine 03/18/14 Brianna Rodriguez NP [address] [place] [address] Historical LMR Provider 11/25/1605/11 Shawn Omer MD [address] [place] [address] [email or web address] Historical LMR Provider 11/25/16 05/23/19 Markell Beltre MD [address] [place] [address] [email or web address] Historical LMR Provider 11/25/16 Nohemi Fuentes NP [address] [place] [address] Historical LMR Provider 11/25/16 Leann Simons NP [address] [place] [address] [email or web address] Historical LMR Provider 11/25/16 05/23/19 Jie An MD [address] [place] [address] Met[employer]icist Endocrinology 09/02/17 Shawn Omer MD [address] [place] [address] Insurance Assigned Provider 05/17/23 Laya Sandoval MD [address] [place] [address] Endocrinology 05/24/19 Delaney Soriano NP [address] [place] [address] Cardiology 05/24/19 Toby Nelson MD [address] [facility] [place] [address] Hospitalist 12/10/19 documented as of this encounter Additional Source Comments The information contained in this document represents components of the legal health record. It is not the complete legal health record.[facility]
--- OUTSIDE RECORDS SUMMARY | 2024-11-04 17:42 | XMS_ITS | Encounter Summary ---
Author Organization [facility] Address [address] [facility] [address] [place] [address] Phone Care Team Providers Care Control Valve Mechanic Name Role Phone Shawn Omer MD Primary Care Provider [phone] Brianna Rodriguez COPY CUTTER Unavailable Unavailable Shawn Omer MD Unavailable Markell Beltre MD Unavailable Nohemi Fuentes COPY CUTTER Unavailable Leann Simons COPY CUTTER Unavailable [phone] Kal An MD Unavailable Shawn Omer MD Unavailable [phone] Laya Sandoval MD Unavailable Delaney Soriano NP Unavailable Toby Nelson MD Unavailable Reason for Referral * MRI/CAT Scan - Closed Specialty Diagnoses / Procedures Referred By Mary Alice diaz Referred To Contact Radiology Diagnoses Diarrhea, unspecified type Procedures CT Abdomen/Pelvis Kal Ramirez MD Phone: tel: fax: mailto: Referral ID Status Reason Start Date Expiration Date Visits Re quested Visits Authorized [id number] Closed 10/22/2017 10/22/2018 1 1 Encounter Details Date Type Department Care Team ([facility] Contact Info) Description 10/22/2017 Ancillary Orders Virtual Department [address] [place] [address] Kal Ramirez MD [address] [place] [address] Diarrhea, unspecified type Social History Tobacco Use [...] Upcoming Encounters Date Type Department Care Team ([facility] Contact Info) Description 11/05/2024 5:00 AM EDT Home Care Visit [facility] [address] [place] [address] Alma Singh RN [address] [place] [address] 11/08/2024 1:30 AM EDT Home Care Visit [facility] [address] [place], [place] [phone] Leslie Lo RN [address] [place] [address] 11/11/2024 12:30 AM EDT Home Care Visit [facility] [address] [place], [place] [phone] Leslie Lo RN [address] [place] [address] 11/15/2024 1:30 AM EDT Home Care Visit [facility] [address] [place] [address] Leslie Lo RN [address] [place] [address] 11/16/2024 8:40 AM EDT Office Visit [facility] [address] [place] [address] Suki Altman PA-C [address] [place] [address] 11/18/2024 Home Care Visit [facility] [address] [place] [phone] Leslie Lo RN [address] [place] [address] 11/22/2024 Home Care Visit [facility] [address] [place] [phone] Leslie Lo RN [address] [place] [address] 11/25/2024 Appointment [facility] [address] [place] [phone] Leslie Lo RN [address] [place] [address] 12/22/2024 9:30 AM EST Office Visit [facility] Internal Medicine [address] [place] [address] Shawn Omer MD [address] [place] [address] 03/14/2025 8:20 AM EST Office Visit [facility] [place] [address] [place] [address] Laya Sandoval MD [address] [place] [address] [address] [place] [address] [email or web address] documented as of this encounter Results * CT ABDOMEN/PELVIS WITH CONTRAST (11/20/2017 10:52 AM EDT) Anatomical Region Laterality Modality Abdomen, Pelvis Computed Tomogra phy 11/20/2017 2:03 PM EDT Addenda Addendum by Rosanne Valdes MD on 02/05/2018 12:54 PM EST Addendum: Prior CT imaging from [facility] reviewed, CT abdomen and pelvis dated 02/09/2014 [...] incision. TOTAL CTDIvol: 17.00 mGy POS - [id number] Edited by: Rosamaria Figueroa on 11/20/2017 2:45 [...] incision. TOTAL CTDIvol: 17.00 mGy POS - [id number] Edited by: Rosamaria Figueroa on 11/20/2017 2:45 [...] documented as of this encounter Care Teams Control Valve Mechanic Relationship Specialty Start Date End Date Shawn Omer MD [address] [place] [address] [email or web address] PCP - General Internal Medicine 03/18/14 Brianna Rodriguez NP [address] [place] [address] Historical LMR Provider 11/25/1605/11 Shawn Omer MD [address] [place] [address] [email or web address] Historical LMR Provider 11/25/16 05/23/19 Markell Beltre MD [address] [place] [address] [email or web address] Historical LMR Provider 11/25/16 Nohemi Fuentes, JEFF [address] [place] [address] Historical LMR Provider 11/25/16 Leann Simons NP [address] [place] [address] [email or web address] Historical LMR Provider 11/25/16 05/23/19 Kal An MD [address] [place] [address] Lead Qa Analyst Endocrinology 09/02/17 Shawn Omer MD [address] [place] [address] Insurance Assigned Provider 05/17/23 Laya Sandoval MD [address] [place] [address] Endocrinology 05/24/19 Delaney Soriano NP [address] [place] [address] Cardiology 05/24/19 Toby Nelson MD [address] [facility] [place] [address] Hospitalist 12/10/19 documented as of this encounter Additional Source Comments The information contained in this document represents components of the legal health record. It is not the complete legal health record.[facility]
--- OUTSIDE RECORDS SUMMARY | 2024-11-04 17:42 | XMS_ITS | Clinical Summary ---
Author Organization [facility] Address [address] [place] [address] Care Team Providers Care Airport Traffic Controller Name Role Phone Unknown, Provider MD Primary Care Provider Unava ilable Encounters Date Type Department Care Team Description 09/24/2024 Lab Requisition [facility] [address] [address] Raimundo Bronson MD Encounter for other general examination 08/23/2024 Lab Requisition [facility] [address] [address] Outr Resulting Lab, Provider from Last 3 [...] 1950 Fall Risk Screening 2014 COVID-19 Vaccine ( season) 2023 RSV Immunization ( o r 60+ Years) (1 - 1-dose 75+ series) 2024 Procedures Procedure Name Priority Date/Time Associated Diagnosis Comments SURGICAL PATHOLOGY Routine 09/24/2024 14 :36 EDT Encounter for other general examination FECAL BACTERIAL PATHOGENS BY PCR Routine 08/23/2024 8:00 EDT PARASITE SCREEN, STOOL Routine 08/23/2024 8:00 EDT from Last 3 Months Results * SURGICAL PATHOLOGY (09/24/2024 14:36 EDT) Note to Patient The following pathology results have been interpreted by your pathologist and may be available to you before your health provider has had the opportunity to review them. Please allow time for your provider to receive these results and explore management options, if applicable. 10/08/2024 1:24 [facility] Final Diagnosis A. COLON, TERMINAL ILEUM AND APPENDIX, RESECTION: - Colon with diffusely sloughed mucosal epithelium, neutrophils, and surface fibrin deposition. See comment. 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 - Appendix with fibrous obliteration. - Terminal ileum without significant diagnostic abnormality. - Three benign reactive lymph nodes. 10/08/2024 1:24 [facility] Diagnosis Comment The patient history of C. difficile colitis is noted. 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 Immunoperoxidase stains were performed on this case to further characterize the lymphatic malformation. ANTIBODY(CLONE)(BL OCK):RESULT D2-40 (Podoplanin)(D2-40 , Leica) (A10): Positive Calretinin (CAL6, Leica) (A10): Negative NOTE: One or more of the reagents used in immunoperoxidase testing in this case may not have been cleared or approved by the U.S. Food and Drug Administration (FDA). The FDA has determined that such clearance or approval is not necessary. These tests are used for clinical purposes. They should not be regarded as investigational or for research. These reagents' performance characteristics have been determined by [facility] and/or by the referring laboratory. The positive and negative controls worked appropriately. If immunoperoxidase staining has been performed on alcohol fixed cytology specimens, which has not been fully validated, the assays should be interpreted with caution and correlated with clinical data. This laboratory is certified under the Clinical Laboratory Improvement Amendments of 1988 (CLIA-88) as qualified to perform high complexity clinical laboratory testing. 10/08/2024 1:24 [facility] Attestation There was significant resident/fellow involvement in the diagnostic evaluation of this case. By the signature below, the attending physician certifies that they have personally conducted a gross and/or microscopic examination of the described specimens and rendered or confirmed the above diagnosis. 10/08/2024 1:24 EDT [facility] at 0123 EDT Clinical History Fulminant C difficile colitis 10/08/2024 1:24 EDT [facility] Gross Description A. Received in formalin labelled with proper patient identification (initials G, K) and colon is a subtotal colonic resection consisting of a 4.0 cm in length segment of terminal ileum, 145 cm of cecum and colon, moderate adipose tissues, including omentum, and appendix. The serosal surfaces are dull purple duomnt with minimal wispy dumont adhesions. The colonic segment is dilated within the cecum/proximal ascending colon and transverse colon, measuring up to 16.0 cm in circumference. The small bowel mucosa and wall are without gross lesions. The colonic mucosa is granular dumont to aldridge pink brown with markedly diminished folds. Numerous islands of adherent aldridge-dumont semi-solid material are present involving the entire length of the colon. Focal areas of possible mucosal ulceration are present within the descending colon. Areas of wall induration are not identified. The distal colonic wall within the distal transverse/descend ing colon shows a thickened, moderately edematous cut surface. Few possible diverticula are present. Sections through the adipose tissues reveal multiple prominent lymph nodes up to 1.0 cm in greatest dimension. Also present within the adipose tissues within the area of the proximal transverse colon reveal a 4.0 cm in diameter biloculated fluid-filled thin-walled cyst. The appendix measures 3.5 cm in length. The distal aspect is cauterized, along the same plane of the adjacent cauterized mesentery. The appendiceal tip is not included. The appendix measures up to 0.4 cm in diameter. Cut surfaces are without gross lesions. Server Security Administrator sections are submitted as follows: BLOCK LAMA A1- outside sales account representative en face proximal margin A2- outside sales account representative en face distal margin A3- section cecum A4- section ascending colon A5- section transverse colon A6- section descending colon to include possible mucosal ulceration A7- section proximal sigmoid colon A8- section distal sigmoid colon A9- outside sales account representative lymph nodes A10- outside sales account representative sections mesenteric thin-walled cyst A11- 3 central sections, appendix ANGELIC VILLATORO(ASCP) 09/27/2024 15:09 10/08/2024 1:24 EDT [facility] Resident/Al samuel: Giuliano Middleton DO 10/08/2024 1:24 EDT [facility] Performing Lab [facility] 1:24 EDT [facility] Scanned Images 10/08/2024 1:24 EDT [facility] Tissue COLON STRUCTURE / Unknown 09/24/2024 14:36 EDT 09/24/2024 23:53 EDT us Raimundo Bronson MD PATHOLOGY ORDERABLES Fin al Result Performing Organization Address [facility]/ZIP Co de Phone Number [facility] [address] [place] [address] * PARASITE SCREEN, STOOL (08/23/2024 8:00 EDT) Giardia and Cryptosporidium Cryptosporidium Antigen Neg and Giardia Antigen Neg Cryptosporidium Antigen Neg and Giardia Antigen Neg 12:09 EDT [facility] Feces SPECIMEN FROM RECTUM / Unknown 08/23/2024 8:00 EDT 08/23/2024 22:21 EDT us Provider Outr Resulting Lab MICROBIOLOGY - GENER AL ORDERABLES Final Result Performing Organization Address [facility]/ZIP Co de Phone Number [facility] [address] [place] [address] * FECAL BACTERIAL PATHOGENS BY PCR (08/23/2024 8:00 EDT) Salmonella PCR Negative Negative 08/24/2024 14:47 EDT [facility] Shigella/Enteroin vasive E. coli Negative Negative 08/24/2024 14:47 EDT [facility] HN LAB CAMPYLOBACTER PCR Negative Negative 08/24/2024 14:47 EDT [facility] Shiga Toxin PCR Negative Negative 14:47 EDT [facility] Feces SPECIMEN FROM RECTUM / Unknown 08/23/2024 8:00 EDT 08/23/2024 22:21 EDT us Provider Outr Resulting Lab MICROBIOLOGY - GENER AL ORDERABLES Final Result [facility] [address] [place] [address] from Last 3 Months Insurance MEDICARE Member Subscriber Plan / Payer (Ef fective 2014-Present) Name:SalmaJenni floodine Member ID:[id number] Relation to Subscriber:Self Name:SalmaAlicia floodElsa Subscriber ID:[id number] Payer ID:[id number] Group ID:Not on file Type:Medicare GL Address: [place] [phone] Care Teams Airport Traffic Controller Relationship Specialty Start Date End Date Unknown, Provider, PCP - General 09/10/24
--- OUTSIDE RECORDS SUMMARY | 2024-11-04 17:42 | XMS_ITS | Encounter Summary ---
Author Organization [facility] Address [address] [facility] [address] [place] [address] Phone Care Team Providers Care Enrichment Director Name Role Phone Shawn Omer MD Primary Care Provider rBianna Rodriguez STILE RIPSAW OPERATOR Unavailable Unavailable Shawn Omer MD Unavailable Markell Beltre MD Unavailable [phone] Nohemi Fuentes STILE RIPSAW OPERATOR Unavailable [phone] Leann Simons STILE RIPSAW OPERATOR Unavailable [phone] Kal An MD Unavailable Shawn Omer MD Unavailable Laya Sandoval MD Unavailable [phone] Delaney Soriano STILE RIPSAW OPERATOR Unavailable Toby Nelson MD Unavailable [phone] Encounter Details Date Type Department Care Team (Late st Contact Info) Description 04/27/2019 Transcribe Orders [facility] [address] [place] [address] Elsie Bond MD [address], [address] [place] [address] Social History Tobacco Use Types Packs/Day Years [...] Care Visit [facility] [address] [place] [phone] Alma Singh RN [address] [place] [address] [email or web address] 11/08/2024 1:30 AM EDT Home Care Visit [facility] [address] [place] [phone] Leslie Lo RN [address] [place] [address] [email or web address] 11/11/2024 12:30 AM EDT [facility] [address] [place] [phone] Leslie Lo RN [address] [place] [address] [email or web address] 11/15/2024 1:30 AM EDT Home Care Visit [facility] [address] [place] [phone] Leslie Lo RN [address] [place] [address] [email or web address] 11/16/2024 8:40 AM EDT Office Visit [facility] [address] [place] [address] Suki Altman PA-C [address] [place] [address] 11/18/2024 Home Care Visit [facility] [address] [place] [phone] Leslie Lo RN [address] [place] [address] 11/22/2024 Home Care Visit [facility] [address] [place] [address] Leslie Lo RN [address] [place] [address] 11/25/2024 Appointment [facility] [address] [place] [phone] Leslie Lo RN [address] [place] [address] 12/22/2024 9:30 AM EST Office Visit [facility] Internal Medicine [address] [place], [place] [phone] Shawn Omer MD [address] [place] [address] 03/14/2025 8:20 AM EST Office Visit [facility] Endocrinology [place] [address] [place] [phone] Laya Sandoval MD [address] [place] [address] documented as of this encounter Visit Diagnoses Not on filedocumented in this encounter Additional Health Concerns Infection Onset Date Last Indicated Resolved Time 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 close contact 12/31/2019 12/31/2019 01/14/2020 1:23 AM EST Assessment Noted Time PHQ-2 Depression Total Score: 2 10/22/20 19 8:37 AM EDT documented as of this encounter Care Teams Enrichment Director Relationship Specialty Start Date End Date Shawn Omer MD [address] [place] [address] [email or web address] PCP - General Internal Medicine 03/18/14 Brianna Rodriguez, STILE RIPSAW OPERATOR [address] [place] [address] Historical LMR Provider 11/25/1605/11 Shawn Omer MD [address] [place], [place] [email or web address] Historical LMR Provider 11/25/16 05/23/19 Markell Beltre MD [address] [place] [address] [email or web address] Historical LMR Provider 11/25/16 Nohemi Fuentes NP [address] [place] [address] Historical LMR Provider 11/25/16 Leann Simons NP [address] [place] [address] [address] [place] [address] [email or web address] Historical LMR Provider 11/25/16 05/23/19 Kal An MD [address] [place] [address] 6 [place] [address] Nurse Orthopedic Endocrinology 09/02/17 Shawn Omer MD [address] [place] [address] [email or web address] Insurance Assigned Provider 05/17/23 Laya Sandoval MD [address] [place] [address] [email or web address] Endocrinology 05/24/19 Delaney Soriano NP [address] [place] [address] Cardiology 05/24/19 Toby Nelson MD [address] [facility] [place] [address] Hospitalist 12/10/19 documented as of this encounter Additional Source Comments The information contained in this document represents components of the legal health record. It is not the complete legal health record.[facility]
--- OUTSIDE RECORDS SUMMARY | 2024-11-04 17:42 | XMS_ITS | Encounter Summary ---
Author Organization [facility] Address [address] [employer] [facility] [address] [place] [address] Phone Care Team Providers Care Timber Grader Name Role Phone Shawn Omer MD Primary Care Provider [phone] Brianna Rodriguez MANAGER MBA Unavailable Unavailable Shawn Omer MD Unavailable Markell Beltre MD Unavailable [phone] Nohemi Fuentes MANAGER MBA Unavailable [phone] Leann Simons MANAGER MBA Unavailable [phone] Kal An MD Unavailable Shawn Omer MD Unavailable Laya Sandoval MD Unavailable Delaney Soriano MANAGER MBA Unavailable Toby Nelson MD Unavailable [phone] Encounter Details Date Type Department Care Team (Latest Contact Info) Description 11/17/[address] [facility] Laboratory [address] [facility] [place] [address] Kal Ramirez MD [address] [place] [address] Pelvic pain (Primary Dx) Social History Tobacco [...] Care Visit [facility] [address] [place] [phone] Alma Singh RN [address] [place] [address] 11/08/2024 1:30 AM EDT Home Care Visit [facility] [address] [place] [phone] Leslie Lo RN [address] [place] [address] 11/11/2024 12:30 AM EDT Home Care Visit [facility] [address] [place] [phone] Leslie Lo RN [address] [place] [address] 11/15/2024 1:30 AM EDT Home Care Visit [facility] [address] [place] [phone] Leslie Lo RN [address] [place] [address] 11/16/2024 8:40 AM EDT Office Visit [facility] [address] [place] [address] Suki Altman PA-C [address] [place] [address] 11/18/2024 Home Care Visit [facility] [address] [place] [address] Leslie Lo RN [address] [place] [address] 11/22/2024 Home Care Visit [facility] [address] [place] [address] Leslie Lo RN [address] [place] [address] 11/25/2024 Appointment [facility] [address] [place] [phone] Leslie Lo RN [address] [place] [address] 12/22/2024 9:30 AM EST Office Visit [facility] Internal Medicine [address] [place], [place] [phone] Shawn Omer MD [address] [place] [address] 03/14/2025 8:20 AM EST Office Visit [facility] Endocrinology [place] [address] [place] [phone] Laya Sandoval MD [address] [place] [address] [phone] [email or web address] documented as of this encounter Results * (ABNORMAL) Comprehensive metabolic panel (11/17/2017 8:29 AM EDT) SODIUM 141 133 - 146 mmol/L [facility] POTASSIUM 4.4 3.3 - 5.1 mmol/L [facility] CHLORIDE 98 96 - 108 mmol/L [facility] CO2 28 21 - 35 mmol/L [facility] BUN 12 6 - 19 mg/dL [facility] CREATININE 0.50 0.5 - 1.5 mg/dL [facility] GLUCOSE 109(H) 70 - 99 mg/dL [facility] ALBUMIN 4.2 3.9 - 4.8 g/dL [facility] TOTAL PROTEIN 7.1 6.5 - 8.0 g/dL [facility] CALCIUM 9.4 8.4 - 10.3 mg/dL [facility] ALKALINE PHOSPHATASE 53 39 - 117 U/L [facility] TOTAL BILIRUBIN 0.5 0.0 - 1.2 mg/dL [facility] AST 17 0 - 37 U/L [facility] ALT 16 0 - 40 U/L [facility] GLOBULIN 2.9 1 - 4.8 g/dL [facility] EGFR 99 >59 mL/min/1.7 3m2 [facility] Comment:If patient is black, multiply result by 1.159. Estimated glomerular filtration rate calculated using the CKD-EPI equation. ANION GAP 19 10 - 20 mmol/L [facility] Blood 11/17/2017 8:29 AM EDT 11/17/2017 8:31 AM EDT us Kal Ramirez MD LAB BLOOD ORDERABLES Final Res ult Performing Organization Address City/State/[facility] Co de Phone Number [facility] [address] [place] [address] documented in this encounter Visit Diagnoses Diagnosis Pelvic pain- Primary documented in this encounter Additional Health Concerns Infection Onset Date Last Indicated Resolved Time 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 close contact 12/31/2019 12/31/2019 01/14/2020 1:23 AM EST Assessment Noted Time PHQ-2 Depression Total Score: 0 03/13/19 18 8:47 AM EST documented as of this encounter Care Teams Timber Grader Relationship Specialty Start Date End Date Shawn Omer MD [address] [place] [address] [email or web address] PCP - General Internal Medicine 03/18/14 Brianna Rodriguez MANAGER MBA [address] [place] [address] Historical LMR Provider 11/25/1605/11 Shawn Omer MD [address] [place] [address] [email or web address] Historical LMR Provider 11/25/16 05/23/19 Markell Beltre MD [address] [place] [address] [email or web address] Historical LMR Provider 11/25/16 Nohemi Fuentes, JEFF [address] [place] [address] Historical LMR Provider 11/25/16 Leann Simons NP [address] [place] [address] [email or web address] Historical LMR Provider 11/25/16 05/23/19 Kal An MD [address] [place] [address] Manager [employer] Endocrinology 09/02/17 Shawn Omer MD [address] [place] [address] [email or web address] Insurance Assigned Provider 05/17/23 Laya Sandoval MD [address] [place] [address] Endocrinology 05/24/19 Delaney Soriano NP [address] [place] [address] Cardiology 05/24/19 Toby Nelson MD [address] [facility] [place] [address] Hospitalist 12/10/19 documented as of this encounter Additional Source Comments The information contained in this document represents components of the legal health record. It is not the complete legal health record.[facility]
--- OUTSIDE RECORDS SUMMARY | 2024-11-04 17:42 | XMS_ITS | Encounter Summary ---
Author Organization [facility] Address [address] [place] [address] Care Team Providers Care Custom Harvester Name Role Phone Unknown, Provider Primary Care Provider Unava ilable Encounter Details Date Type Department Care Team (Late st Contact Info) Description 09/24/2024 Lab Requisition [facility] Pathology & Laboratory Medicine - [facility] [address] [place] [address] Raimundo Bronson MD [address] [place] [address] [phone] Encounter for other general examination Social History [...] :36 EDT Encounter for other general examination documented in this encounter Results * SURGICAL PATHOLOGY (09/24/2024 14:36 EDT) Note to Patient The following pathology results have been interpreted by your pathologist and may be available to you before your health provider has had the opportunity to review them. Please allow time for your provider to receive these results and explore management options, if applicable. 10/08/2024 1:24 EDT [facility] Final Diagnosis A. COLON, TERMINAL ILEUM AND APPENDIX, RESECTION: - Colon with diffusely sloughed mucosal epithelium, neutrophils, and surface fibrin deposition. See comment. 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 - Appendix with fibrous obliteration. - Terminal ileum without significant diagnostic abnormality. - Three benign reactive lymph nodes. 10/08/2024 1:24 [facility] Diagnosis Comment The patient history [...] high complexity clinical laboratory testing. 10/08/2024 1:24 [facility] Attestation There was significant resident/fellow involvement in the diagnostic evaluation of this case. By the signature below, the attending physician certifies that they have personally conducted a gross and/or microscopic examination of the described specimens and rendered or confirmed the above diagnosis. 10/08/2024 1:24 [facility] at 0123 EDT Clinical History Fulminant C difficile colitis 10/08/2024 1:24 [facility] Gross Description A. Received in formalin labelled with proper patient identification (initials G, K) and colon is a subtotal colonic resection consisting of a 4.0 cm in length segment of terminal ileum, 145 cm of cecum and colon, moderate adipose tissues, including omentum, and appendix. The serosal surfaces are dull purple dumont with minimal wispy dumont adhesions. The colonic [...] diameter. Cut surfaces are without gross lesions. Recruiter sections are submitted as follows: BLOCK LAMA A1- business services sales representative en face proximal margin A2- business services sales representative en face distal margin A3- section cecum A4- section ascending colon A5- section transverse colon A6- section descending colon to include possible mucosal ulceration A7- section proximal sigmoid colon A8- section distal sigmoid colon A9- business services sales representative lymph nodes A10- business services sales representative sections mesenteric thin-walled cyst A11- 3 central sections, appendix ANGELIC VILLATORO(ASCP) 09/27/2024 15:09 10/08/2024 1:24 EDT [facility] Resident/Al w: Giuliano Middleton DO 10/08/2024 1:24 EDT [facility] Performing Lab [facility] 1:24 EDT [facility] Scanned Images 10/08/2024 1:24 EDT [facility] Tissue COLON STRUCTURE / Unknown 09/24/2024 14:36 EDT 09/24/2024 23:53 EDT us Raimundo Bronson MD PATHOLOGY ORDERABLES Fin al Result [facility] [address] [place] [address] documented in this encounter Visit Diagnoses Diagnosis Encounter for other general examination documented in this encounter Care Teams Custom Harvester Relationship Specialty Start Date End Date Unknown, Provider, PCP - General 09/10/24 documented as of this encounter
--- OUTSIDE RECORDS SUMMARY | 2024-11-04 17:42 | XMS_ITS | Encounter Summary ---
Author Organization [facility] Address [address] [employer] [facility] [address] [place] [address] Phone Care Team Providers Care Composer Teaching Artist Name Role Phone Shawn Omer MD Primary Care Provider [phone] Kal An MD Unavailable Shawn Omer MD Unavailable [phone] Laya Sandoval MD Unavailable Delaney Soriano NP Unavailable Toby Nelson MD Unavailable [phone] Encounter Details Date Type Department Care Team (Late st Contact Info) Description 06/30/2019 Transcribe Orders [facility] Laboratory [address] [place] [address] Laya Sandovla MD [address] [address] [email or web address] Social History Tobacco Use Types Packs/Day Years [...] Care Visit [facility] [address] [place] [phone] Alma Singh RN [address] [place] [address] 11/08/2024 1:30 AM EDT Home Care Visit [facility] [address] [place] [phone] Leslie Lo RN [address] [place] [address] 11/11/2024 12:30 AM EDT Home Care Visit [facility] [address] [place] [phone] Leslie Lo RN [address] [place] [address] 11/15/2024 1:30 AM EDT Home Care Visit [facility] [address] [place] [phone] Leslie Lo RN [address] [place] [address] 11/16/2024 8:40 AM EDT Office Visit [facility] 22 [place] [address] Suki Altman PA-C [address] [place] [address] 11/18/2024 Home Care Visit [facility] [address] [place] [phone] Leslie Lo RN [address] [place] [address] 11/22/2024 Home Care Visit [facility] [address] [place] [address] Leslie Lo RN [address] [place] [address] 11/25/2024 Appointment [facility] [address] [place], [place] [phone] Leslie Lo RN [address] [place] [address] 12/22/2024 9:30 AM EST Office Visit [facility] Internal Medicine [address] [place], [place] 100[address] Shawn Omer MD [address] [place], [place] [phone] 03/14/2025 8:20 AM EST Office Visit [facility] Endocrinology [place] [address] [place] [phone] Laya Sandoval MD [address] [place] [address] documented as of this encounter Visit Diagnoses Not on filedocumented in this encounter Additional Health Concerns Infection Onset Date Last Indicated Resolved Time 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 close contact 12/31/2019 12/31/2019 01/14/2020 1:23 AM EST Assessment Noted Time PHQ-2 Depression Total Score: 2 12/02/19 19 8:37 AM EDT documented as of this encounter Care Teams Composer Teaching Artist Relationship Specialty Start Date End Date Shawn Omer MD [address] [place], [place] [phone] PCP - General Internal Medicine 03/18/14 Kal An MD [address] [place] [address] Preforming Machine Operator Endocrinology 09/02/17 Shawn Omer MD [address] [place] [address] [email or web address] Insurance Assigned Provider 05/17/23 Laya Sandoval MD [address] [address] Endocrinology 05/24/19 Delaney Soriano NP [address] [place] [address] Cardiology 05/24/19 Toby Nelson MD [address] [facility] [place] [address] Hospitalist 12/10/19 documented as of this encounter Additional Source Comments The information contained in this document represents components of the legal health record. It is not the complete legal health record.[facility]
--- OUTSIDE RECORDS SUMMARY | 2024-11-04 17:42 | XMS_ITS | Encounter Summary ---
Author Organization [facility] Address [address] [employer] [facility] [address] [place] [address] Phone Care Team Providers Care Traveling Clerk Name Role Phone Shawn Omer MD Primary Care Provider Kal An MD Unavailable Shawn Omer MD Unavailable Laya Sandoval MD Unavailable Delaney Soriano NP Unavailable Toby Nelson MD Unavailable [phone] Encounter Details Date Type Department Care Team (Latest Contact Info) Description 07/23/2023 Transcribe Orders [facility] Laboratory [address] [place] [address] Miri Burgess PA-C [address] [place] [address] Anemia, unspecified type (Primary Dx) Social History [...] 5:00 AM EDT Home Care Visit [facility] [address] [place] [phone] Alma Singh RN [address] [place] [address] 11/08/2024 1:30 AM EDT Home Care Visit [facility] [address] [place] [phone] Leslie oL RN [address] [place] [address] 11/11/2024 12:30 AM EDT Home Care Visit [facility] [address] [place] [phone] Leslie Lo RN [address] [place] [address] 11/15/2024 1:30 AM EDT Home Care Visit [facility] [address] [place] [phone] Leslie Lo RN [address] [place] [address] 11/16/2024 8:40 AM EDT Office Visit [facility] [address] [place] [address] Suki Altman PA-C 22 [place] [address] 11/18/2024 Home Care Visit [facility] [address] [place] [phone] Leslie Lo RN [address] [place] [address] 11/22/2024 Home Care Visit [facility] [address] [place] [phone] Leslie Lo RN [address] [place] [address] 11/25/2024 Appointment [facility] [address] [place] [phone] Leslie Lo RN [address] [place] [address] 12/22/2024 9:30 AM EST Office Visit [facility] Internal Medicine [address] [place] [address] Shawn Omer MD [address] [place] [address] 03/14/2025 8:20 AM EST Office Visit [facility] [place] [address] [place] [phone] Laya Sandoval MD [address] [address] documented as of this encounter Results * (ABNORMAL) Fecal immunochemical test x1 (FIT) (07/31/2023 8:00 AM EDT) Immuno Fecal Occult Positive(A ) Negative [facility] Stool (Stool) 07/31/2023 8:0 0 AM EDT 07/31/2023 11:18 AM EDT us Miri Burgess PA-C BODY FLUIDS AND STOOLS ORDERABL ES Final Result Performing Organization Address [facility]/ZIP Co de Phone Number [address] [address] * (ABNORMAL) Vitamin B12 (07/23/2023 9:38 AM EDT) VITAMIN B12 1,362(H) 232 - 1,245 pg/mL [facility] Blood 07/23/2023 9:38 AM EDT 07/23/2023 9:41 AM EDT us Miri Burgess PA-C LAB BLOOD ORDERABLES Final Resu lt Performing Organization Address [facility] Co de Phone Number [address] [address] * Folate (07/23/2023 9:38 AM EDT) Pathologist [facility] FOLIC ACID 5.0 4.2 - 19.9 ng/mL [facility] Blood 07/23/2023 9:38 AM EDT 07/23/2023 9:41 AM EDT us Miri Burgess PA-C LAB BLOOD ORDERABLES Final Resu lt Performing Organization Address [facility] Co de Phone Number [address] [address] * Ferritin (07/23/2023 9:38 AM EDT) FERRITIN 20 13 - 150 ug/L [facility] Blood 07/23/2023 9:38 AM EDT 07/23/2023 9:41 AM EDT us Miri Burgess PA-C LAB BLOOD ORDERABLES Final Resu lt Performing Organization Address City/[facility]/ZIP Co de Phone Number [address] [address] * Iron and iron binding capacity (07/23/2023 9:38 AM EDT) IRON 84 30 - 160 ug/dL [facility] IRON BINDING CAPACITY 415 228 - 428 ug/dL [facility] TRANSFERRIN SATURAT. 20 15 - 50 % [facility] Blood 07/23/2023 9:38 AM EDT 07/23/2023 9:41 AM EDT us Miri Burgess PA-C LAB BLOOD ORDERABLES Final Resu lt Performing Organization Address [facility]/ZIP Co de Phone Number [address] [address] * Immunoglobulin A (07/23/2023 9:38 AM EDT) IgA 138 70 - 400 mg/dL [facility] Blood 07/23/2023 9:38 AM EDT 07/23/2023 9:41 AM EDT us Miri Burgess PA-C LAB BLOOD ORDERABLES Final Resu lt Performing Organization Address [facility]/ZIP Co de Phone Number [address] [address] * (ABNORMAL) CBC (07/23/2023 9:38 AM EDT) WBC 7.16 4.00 - 11.00 K/uL [facility] RBC 4.80 3.72 - 5.30 M/uL [facility] HGB 12.9 11.4 - 15.9 g/dL [facility] HCT 41.4 34.2 - 46.8 % [facility] PLT 288 140 - 430 K/uL [facility] MCV 86.3 78.0 - 97.0 fL [facility] MCH 26.9 25.0 - 33.0 pg [facility] MCHC 31.2(L) 32.0 - 36.0 g/dL [facility] RDW 15.8 11.0 - 16.0 % [facility] MPV 9.5 8.4 - 12.8 fl [facility] Blood 07/23/2023 9:38 AM EDT 07/23/2023 9:41 AM EDT us Miri Burgess PA-C LAB BLOOD ORDERABLES Final Resu lt Performing Organization Address City/[facility]/ZIP Co de Phone Number [facility] [address] [place] [address] * Tissue transglutaminase IgA (07/23/2023 9:38 AM EDT) TTG IGA ANTIBODY <1.2 <4.0 (Negative) U/mL [facility] Blood 07/23/2023 9:38 AM EDT 07/23/2023 9:41 AM EDT Miri Burgess PA-C LAB BLOOD ORDERABLES Final Resu lt Performing Organization Address City/[facility]/ZIP Co de Phone Number [facility] [address] [place] [address] documented in this encounter Visit Diagnoses Diagnosis Anemia, unspecified type- Primary documented in this encounter Additional Health Concerns Assessment Noted Time PHQ-2 Depression Total Score: 0 12/12/19 23 1:09 PM EDT documented as of this encounter Care Teams Traveling Clerk Relationship Specialty Start Date End Date Shawn Omer MD [address] [place] [address] [email or web address] PCP - General Internal Medicine 03/18/14 Kal An MD [address] [place] [address] Hand Bookbinder Endocrinology 09/02/17 Shawn Omer MD [address] [place] [address] Insurance Assigned Provider 05/17/23 Laya Sandoval MD [address] [address] Endocrinology 05/24/19 Delaney Soriano NP [address] [place] [address] Cardiology 05/24/19 Toby Nelson MD [address] [facility] [place] [address] Hospitalist 12/10/19 documented as of this encounter Additional Source Comments The information contained in this document represents components of the legal health record. It is not the complete legal health record.[facility]
--- OUTSIDE RECORDS SUMMARY | 2024-11-04 17:42 | XMS_ITS | Encounter Summary ---
Author Organization [facility] Address [address] [facility] [address] [place] [address] Phone Care Team Providers Care Solar Process Engineer Name Role Phone Shawn Omer MD Primary Care Provider [phone] Kal An MD Unavailable Shawn Omer MD Unavailable Laya Sandoval MD Unavailable Delaney Soriano NP Unavailable Toby Nelson MD Unavailable [phone] Encounter Details Date Type Department Care Team (Late Contact Info) Description 06/12/2020 Procedure Pass [facility] Endoscopy Admitting Dept Virtual Department [address] [place] [address] Social History Tobacco Use Types Packs/Day Years [...] 5:00 AM EDT Home Care Visit [facility] [address] [place] [address] Alma Singh RN [address] [place] [address] 11/08/2024 1:30 AM EDT Home [facility] Visit [facility] [address] [place] [address] Leslie Lo RN [address] [place] [address] 11/11/2024 12:30 AM EDT Home Care Visit [facility] [address] [place] [phone] Leslie Lo RN [address] [place] [address] 11/15/2024 1:30 AM EDT Home Care Visit [facility] [address] [place] [phone] Leslie Lo RN [address] [place] [address] 11/16/2024 8:40 AM EDT Office Visit [facility] [address] [place] [address] Suki Altman PA-C 22 [place] [address] 11/18/2024 Home Care Visit [facility] [address] [place] [address] Leslie Lo RN [address] [place] [address] 11/22/2024 Home Care Visit [facility] [address] [place] [phone] Leslie Lo RN [address] [place] [address] [email or web address] 11/25/2024 Appointment [facility] [address] [place] [address] Leslie Lo RN [address] [place] [address] [email or web address] 12/22/2024 9:30 AM EST Office Visit [facility] Internal Medicine [address] [place] [address] Shawn Omer MD 40 [place] [address] [email or web address] 03/14/2025 8:20 AM EST Office Visit [facility] Endocrinology [place] [address] [place] [phone] Laya Sandoval MD [address] [address] [email or web address] documented as of this encounter Visit Diagnoses Not on filedocumented in this encounter Additional Health Concerns Assessment Noted Time PHQ-2 Depression Total Score: 0 04/12/19 21 9:12 AM EST documented as of this encounter Care Teams Solar Process Engineer Relationship Specialty Start Date End Date Shawn Omer MD 40 [place] [address] [email or web address] PCP - General Internal Medicine 03/18/14 Kal An MD [address] [place] [address] Ethnoarchaeologist Endocrinology 09/02/17 Shawn Omer MD 40 [place] [address] Insurance Assigned Provider 05/17/23 Laya Sandoval MD [address] [address] Endocrinology 05/24/19 Delaney Soriano NP [address] [place] [address] Cardiology 05/24/19 Toby Nelson MD [address] [place] [address] [place] [address] Hospitalist 12/10/19 documented as of this encounter Additional Source Comments The information contained in this document represents components of the legal health record. It is not the complete legal health record.[facility]
--- OUTSIDE RECORDS SUMMARY | 2024-11-04 17:42 | XMS_ITS | Encounter Summary ---
Author Organization [facility] Address [address] [facility] [address] [place] [address] Phone Care Team Providers Care Water Valve Repairer Name Role Phone Shawn Omer MD Primary Care Provider [phone] Brianna Rodriguez MEDICAL APPARATUS MODEL MAKER Unavailable Unavailable Shawn Omer MD Unavailable [phone] Markell Beltre MD Unavailable [phone] Nohemi Fuentes MEDICAL APPARATUS MODEL MAKER Unavailable [phone] Leann Simons MEDICAL APPARATUS MODEL MAKER Unavailable [phone] Kal An MD Unavailable Shawn Omer MD Unavailable Laya Sandoval MD Unavailable Delaney Soriano NP Unavailable Toby Nelson MD Unavailable [phone] Encounter Details Date Type Department Care Team (Late st Contact Info) Description 10/22/2017 Procedure Pass [facility], Ct Scan - [address] [address] Social History Tobacco Use Types Packs/Day Years [...] 5:00 AM EDT [facility] [address] [place] [phone] Alma Singh RN [address] [place] [address] 11/08/2024 1:30 AM EDT Home Care Visit [facility] [address] [place] [phone] Leslie Lo RN [address] [place] [address] 11/11/2024 12:30 AM EDT Home Care Visit [facility] [address] [place] [phone] Leslie Lo RN [address] [place] [address] 11/15/2024 1:30 AM EDT Home Care Visit [facility] [address] [place] [address] Leslie Lo RN [address] [place] [address] 11/16/2024 8:40 AM EDT Office Visit [facility] 22 [place] [address] Suki Altman PA-C 22 [place] [address] 11/18/2024 Home Care Visit [facility] [address] [place] [address] Leslie Lo RN 168 [place] [address] 11/22/2024 Home Care Visit [facility] 30 [place], [place] [phone] Leslie Lo RN [address] [place] [address] 11/25/2024 Appointment [facility] 30 [place], [place] [phone] Leslie Lo RN 168 [place] [address] [email or web address] 12/22/2024 9:30 AM EST Office Visit [facility] Internal Medicine 40 [place] [address] Shawn Omer MD 40 [place] [address] [email or web address] 03/14/2025 8:20 AM EST Office Visit [facility] Endocrinology [place] 40 [place] [address] Laya Sandoval MD [address] [place] [address] [email or web address] documented as of this encounter Visit Diagnoses Not on filedocumented in this encounter Additional Health Concerns Infection Onset Date Last Indicated Resolved Time 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 close contact 12/31/2019 12/31/2019 01/14/2020 1:23 AM EST Assessment Noted Time PHQ-2 Depression Total Score: 0 03/13/19 18 8:47 AM EST documented as of this encounter Care Teams Water Valve Repairer Relationship Specialty Start Date End Date Shawn Omer MD 40 [place] [address] [email or web address] PCP - General Internal Medicine 03/18/14 Brianna Rodriguez NP [address] [place] [address] Historical LMR Provider 11/25/1605/11 Shawn Omer MD [address] [place] [address] [email or web address] Historical LMR Provider 11/25/16 05/23/19 Markell Beltre MD [address] [place] [address] [email or web address] Historical LMR Provider 11/25/16 Nohemi Fuentes NP [address] [place] [address] Historical LMR Provider 11/25/16 Leann Simons NP [address] [place] [address] [email or web address] Historical LMR Provider 11/25/16 05/23/19 Kal An MD [address] [place] [address] Process Owner Endocrinology 09/02/17 Shawn Omer MD [address] [place] [address] [email or web address] Insurance Assigned Provider 05/17/23 Laya Sandoval MD [address] [address] [email or web address] Endocrinology 05/24/19 Delaney Soriano NP 575 [place] [address] Cardiology 05/24/19 Toby Nelson MD [facility] [place] [address] Hospitalist 12/10/19 documented as of this encounter Additional Source Comments The information contained in this document represents components of the legal health record. It is not the complete legal health record.[facility]
--- OUTSIDE RECORDS SUMMARY | 2024-11-04 17:42 | XMS_ITS | Encounter Summary ---
Author Organization [facility] Address [address] [facility] [address] [place] [address] Phone Care Team Providers Care Nail Polish Brush Machine Feeder Name Role Phone Shawn Omer MD Primary Care Provider Brianna Rodriguez CLEAR COAT SPRAYER Unavailable Unavailable Shawn Omer MD Unavailable Markell Beltre MD Unavailable Nohemi Fuentes CLEAR COAT SPRAYER Unavailable Leann Simons CLEAR COAT SPRAYER Unavailable [phone] Kal An MD Unavailable Shawn Omer MD Unavailable Laya Sandoval MD Unavailable Delaney Soriano NP Unavailable Toby Nelson MD Unavailable [phone] Encounter Details Date Type Department Care Team (Late st Contact Info) Description 08/21/2018 [facility] [address] [place] [address] Reji Dave PA-C [address] [place] [address] Orthopedics & Sports Medicine, [facility] [place] [address] [email or web address] Left arm pain Social History Tobacco Use [...] Care Visit [facility] [address] [place] [phone] Alma Singh RN [address] [place] [address] [email or web address] 11/08/2024 1:30 AM EDT Home Care Visit [facility] [address] [place] [phone] Leslie Lo RN [address] [place] [address] [email or web address] 11/11/2024 12:30 AM EDT Home Care Visit [facility] [address] [place] [phone] Leslie Lo RN [address] [place] [address] [email or web address] 11/15/2024 1:30 AM EDT Home Care Visit [facility] [address] [place] [phone] Leslie Lo RN [address] [place] [address] [email or web address] 11/16/2024 8:40 AM EDT Office Visit [facility] 22 [place] [address] Suki Altman PA-C 22 [place] [address] 11/18/2024 Home Care Visit [facility] 30 [place] [address] Leslie Lo RN 168 [place] [address] 11/22/2024 Home Care Visit [facility] 30 [place] [address] Leslie Lo RN [address] [place] [address] 11/25/2024 Appointment [facility] 30 [place] [phone] Leslie Lo RN [address] [place] [address] 12/22/2024 9:30 AM EST Office Visit [facility] Internal Medicine 40 [place] [address] Shawn Omer MD 40 [place] [address] 03/14/2025 8:20 AM EST Office Visit [facility] Endocrinology [place] 40 [place] [phone] Laya Sandoval MD [address] [address] [email or web address] documented as of this encounter Results * [...] documented as of this encounter Care Teams Nail Polish Brush Machine Feeder Relationship Specialty Start Date End Date Shawn Omer MD 40 [place] [address] [email or web address] PCP - General Internal Medicine 03/18/14 Brianna Rodriguez CLEAR COAT SPRAYER 164 [place] [address] Historical LMR Provider 11/25/1605/11 Shawn Omer MD 40 [place] [address] [email or web address] Historical LMR Provider 11/25/16 05/23/19 Markell Beltre MD [address] [place] [address] [email or web address] Historical LMR Provider 11/25/16 Nohemi Fuentes NP [address] [address] Historical LMR Provider 11/25/16 Leann Simons CLEAR COAT SPRAYER 26 [facility] 6 [place] [address] Historical LMR Provider 11/25/16 05/23/19 Kal An MD [address] [address] Reprographics Technician Endocrinology 09/02/17 Shawn Omer MD [address] [place] [address] Insurance Assigned Provider 05/17/23 Laya Sandoval MD [address] [address] Endocrinology 05/24/19 Delaney Soriano NP 575 [place] [address] Cardiology 05/24/19 Toby Nelson MD 3300 [facility] [place] [address] Hospitalist 12/10/19 documented as of this encounter Additional Source Comments The information contained in this document represents components of the legal health record. It is not the complete legal health record.[facility]
--- OUTSIDE RECORDS SUMMARY | 2024-11-04 17:42 | XMS_ITS | Encounter Summary ---
Author Organization [facility] Address [address] [facility] [address] [place] [address] Phone Care Team Providers Care Sumac Tanner Name Role Phone Shawn Omer MD Primary Care Provider [phone] Kal An MD Unavailable Shawn Omer MD Unavailable Laya Sandoval MD Unavailable Delaney Soriano NP Unavailable Toby Nelson MD Unavailable [phone] Reason for Visit * Reason Onset Date Comments Syncope 03/05/2021 Encounter Details Date Type Department Care Team (Late st Contact Info) Description 03/05/[address] [facility] Neuro Services [address] [place] [address] Mary Anne Maloney, TREADLE CUT OFF SAW OPERATOR [address] [place] [address] [email or web address] Social History Tobacco Use Types Packs/Day [...] 5:00 AM EDT Home Care Visit [facility] [address] [place] [address] Alma Singh RN [address] [place] [address] 11/08/2024 1:30 AM EDT Home Care Visit [facility] [address] [place] [address] Leslie Lo RN [address] [place] [address] 11/11/2024 12:30 AM EDT Home Care Visit [facility] [address] [place] [phone] Leslie Lo RN [address] [place] [address] [email or web address] 11/15/2024 1:30 AM EDT Home Care Visit [facility] [address] [place] [phone] Leslie Lo RN [address] [place] [address] 11/16/2024 8:40 AM EDT Office Visit [facility] 22 [place] [address] Suki Altman PA-C 22 [place] [address] [email or web address] 11/18/2024 Home Care Visit [facility] [address] [place] [phone] Leslie Lo RN [address] [place] [address] [email or web address] 11/22/2024 Home Care Visit [facility] [address] [place] [phone] Leslie Lo RN [address] [place] [address] [email or web address] 11/25/2024 Appointment [facility] [address] [place] [phone] Leslie Lo RN [address] [place] [address] [email or web address] 12/22/2024 9:30 AM EST Office Visit [facility] [place] Internal Medicine 40 [place] [address] Shawn Omer MD 40 [place] [address] 03/14/2025 8:20 AM EST Office Visit [facility] Endocrinology [place] 40 [place] [phone] Laya Sandoval MD [address] [address] documented as of this encounter Visit Diagnoses Diagnosis Other migraine without status migrainosus, not intractable- Primary documented in this encounter Additional Health Concerns Assessment Noted Time PHQ-2 Depression Total Score: 0 04/12/19 21 9:12 AM EST documented as of this encounter Care Teams Sumac Tanner Relationship Specialty Start Date End Date Shawn Omer MD 40 [place] [address] PCP - General Internal Medicine 03/18/14 Kal An MD [address] [place] [address] Order Picker/Assembler Endocrinology 09/02/17 Shawn Omer MD 40 [place] [address] Insurance Assigned Provider 05/17/23 Laya Sandoval MD [address] [address] Endocrinology 05/24/19 Delaney Soriano NP [address] [place] [address] Cardiology 05/24/19 Toby Nelson MD 3300 [facility] [place] [address] Hospitalist 12/10/19 documented as of this encounter Additional Source Comments The information contained in this document represents components of the legal health record. It is not the complete legal health record.[facility]
--- OUTSIDE RECORDS SUMMARY | 2024-11-04 17:43 | XMS_ITS | Encounter Summary ---
Author Organization [facility] Address [address] [address] Phone Care Team Providers Care Senior Database Programmer Name Role Phone Shawn Omer MD Primary Care Provider Brianna Rodriguez CLAY DIGGER Unavailable Unavailable Shawn Omer MD Unavailable [phone] Markell Beltre MD Unavailable [phone] Nohemi Fuentes CLAY DIGGER Unavailable Leann Simons CLAY DIGGER Unavailable [phone] Kal An MD Unavailable Shawn Omer MD Unavailable Laya Sandoval MD Unavailable Delaney Soriano NP Unavailable Toby Nelson MD Unavailable [phone] Reason for Referral * MRI/CAT Scan - Closed Specialty Diagnoses / Procedures Referred By Mary Alice diaz Referred To Contact Procedures CT Abdomen/Pelvis Outside (No Interpretation) System, Provider Not In, PhD [address] [address] Referral ID Status Reason Start Date Expiration Date Visits Re quested Visits Authorized [id number] Closed 01/23/2018 01/23/2019 1 1 * MRI/CAT Scan - Closed Specialty Diagnoses / Procedures Referred By Contac t Referred To Contact Procedures CT Chest Outside (No Interpretation) System, Provider Not In, PhD Partners [address] [address] Referral ID Status Reason Start Date Expiration Date Visits Re quested Visits Authorized [id number] Closed 01/23/2018 01/23/2019 1 1 * MRI/CAT Scan - Closed Specialty Diagnoses / Procedures Referred By Contac t Referred To Contact Procedures CT Abdomen/Pelvis Outside (No Interpretation) System, Provider Not In, PhD [facility] [address] [address] Referral ID Status Reason Start Date Expiration Date Visits Re quested Visits Authorized [id number] Closed 01/23/2018 01/23/2019 1 1 Encounter Details Date Type Department Care Team (Late Contact Info) Description 01/23/2018 Ancillary Orders [facility],Outside Imaging [address] [place] [address] System, Provider Not In, PhD [facility] [address] [address] Social History Tobacco Use Types Packs/Day Years [...] 11/05/2024 5:00 AM EDT [facility] [address] [place] [address] Alma Singh RN [address] [place] [address] 11/08/2024 1:30 AM EDT [facility] 30 [place] [address] Leslie Lo RN 168 [place] [address] 11/11/2024 12:30 AM EDT Home Care Visit [facility] [address] [place] [phone] Leslie Lo RN 168 [place] [address] 11/15/2024 1:30 AM EDT Home Care Visit [facility] [address] [place] [phone] Leslie Lo RN [address] [place] [address] 11/16/2024 8:40 AM EDT Office Visit [facility] 22 [place] [address] Suki Altman PA-C 22 [place] [address] 11/18/2024 Home Care Visit [facility] [address] [place] [phone] Leslie Lo RN 168 [place] [address] 11/22/2024 Home Care Visit [facility] [address] [place] [phone] Leslie Lo RN [address] [place] [address] 11/25/2024 Appointment [facility] [address] [place] [phone] Leslie Lo RN [address] [place] [address] [email or web address] 12/22/2024 9:30 AM EST Office Visit [facility] Internal Medicine 40 [place] [address] Shawn Omer MD 40 [place] [address] [email or web address] 03/14/2025 8:20 AM EST Office Visit [facility] Endocrinology [place] 40 [place] [address] Laya Sandoval MD [address] [place] [address] [email or web address] documented as of this encounter Results * [...] documented as of this encounter Care Teams Senior Database Programmer Relationship Specialty Start Date End Date Shawn Omer MD 40 [place] [address] [email or web address] PCP - General Internal Medicine 03/18/14 Brianna Rodriguez CLAY DIGGER 164 [place] [address] Historical LMR Provider 11/25/1605/11 Shawn Omer MD 40 [place] [address] [email or web address] Historical LMR Provider 11/25/16 05/23/19 Markell Beltre MD [address] [place] [address] [email or web address] Historical LMR Provider 11/25/16 Nohemi Fuentes NP [address] [place] [address] Historical LMR Provider 11/25/16 Leann Simons NP [address] [place] [address] [email or web address] Historical LMR Provider 11/25/16 05/23/19 Kal An MD [address] [place] [address] Oil Heater Installer Endocrinology 09/02/17 Shawn Omer MD [address] [place] [address] Insurance Assigned Provider 05/17/23 Laya Sandoval MD [address] [place] [address] Endocrinology 05/24/19 Delaney Soriano NP [address] [place] [address] Cardiology 05/24/19 [place] [address] [place] [address] [place] [address] Hospitalist 12/10/19 documented as of this encounter Additional Source Comments The information contained in this document represents components of the legal health record. It is not the complete legal health record.[facility]
--- OUTSIDE RECORDS SUMMARY | 2024-11-04 17:43 | XMS_ITS | Clinical Summary ---
Author Organization [facility] Address [address] [facility] [address] [place] [id number] Phone Care Team Providers Care Animal Care Taker Name Role Phone Shawn Peterson MD Primary Care Provider Jie An MD Unavailable Shawn Peterson MD Unavailable Laya Sandoval MD Unavailable [phone] Delaney Soriano NP Unavailable Toby Nelson MD Unavailable [phone] Allergies Active Allergy Reactions Criticality Noted [...] a home health clinician.] 30 tablet 5 05/06/19 21 Active Additional Information Patient not taking.Reason: Therapy complete, Reported on 10/01/2024 fluoride, sodium, (PREVIDENT 5000 BOOSTER) 1.1 % Pste 1 application 2 (two) times a day. 03/15/19 Active cholestyramine (QUESTRAN) 4 gram packet as needed. 1-2 times a week 11/18/19 Active Medication-Free Text as directed Dx: NIDDM/Polyneurop athy (E11.42), Hammertoe Foot Deformity (M20.41,M20.42), Preulcerative Skin Lesion(s) (L85.1 Active triamcinolone acetonide 0.1 % cream daily as needed (for skin issues). Active empagliflozin (JARDIANCE) 10 mg tabletIndications :Type 2 diabetes mellitus with peripheral neuropathy Take 1 tablet (10 mg total) by mouth daily. 90 tablet 1 03/11/19 24 Active ascorbic acid, vitamin C, (VITAMIN C) 250 MG tablet Take 250 mg by mouth daily. Active ferrous gluconate 324 mg (37.5 mg elemental) TabIndications:Ir on deficiency anemia, unspecified iron deficiency anemia type take 1 tablet by mouth every day 90 tablet 3 11/03/19 24 Active ketoconazole 2 % creamIndications: Fungal rash of trunk Apply topically 2 (two) times a day as needed. To groin rash 45 g 3 02/24/19 25 Active metFORMIN (GLUCOPHAGE-XR) 500 MG 24 hr tabletIndications :Type 2 diabetes mellitus with peripheral neuropathy Take 2 tablets, orally twice daily, or as directed 360 tablet 3 03/24/19 25 Active furosemide (LASIX) 20 MG tablet Take 1 tablet (20 mg total) by mouth daily. 90 tablet 3 03/24/19 25 Active FLUoxetine (PROZAC) 10 MG capsuleIndication s:History of depression Take 1 capsule (10 mg total) by mouth daily. 90 capsule 3 03/24/19 25 Active omeprazole (PRILOSEC) 20 MG capsuleIndication s:Gastroesophagea l reflux disease Take 1 capsule (20 mg total) by mouth daily. 90 capsule 3 03/24/19 25 Active metoprolol succinate (TOPROL-XL) 25 MG 24 hr tabletIndications :Chronic systolic congestive heart failure TAKE 1 TABLET DAILY. 90 tablet 3 03/25/19 25 Active nortriptyline (PAMELOR) 50 MG capsuleIndication s:Cyclical vomiting TAKE 1 CAPSULE NIGHTLY AT BEDTIME 90 capsule 3 03/27/19 25 Active ONETOUCH VERIO Strp stripsIndications :Type 2 diabetes mellitus with peripheral neuropathy Use as directed to monitor glucose once daily Dx E11.42 100 strip 3 03/30/19 25 Active simvastatin (ZOCOR) 20 MG tabletIndications :Hyperlipidemia Take 1 tablet (20 mg total) by mouth nightly at bedtime. 90 tablet 3 04/23/19 25 Active rivaroxaban (XARELTO) 20 mg Tab Take 1 tablet (20 mg total) by mouth daily. 90 tablet 3 04/23/19 25 Active galcanezumab-gnlm (EMGALITY) 120 mg/mL subcutaneous syringeIndication s:Other migraine with status migrainosus, intractable Inject 1 mL (120 mg total) under the skin every 30 (thirty) days. 3 mL 3 05/26/19 25 Active levothyroxine (SYNTHROID, LEVOTHROID) 88 MCG tabletIndications :Acquired hypothyroidism [The details of the medication are not available because there are pending changes by a home health clinician.] 90 tablet 1 07/20/19 25 Active Additional Information Patient taking differently:88 mcg Oral Every morning,taking 112mcg 6 days/week, Reported on 10/01/2024 magnesium oxide (MAG-OX) 400 mg (241.3 mg elemental) tablet Take 400 mg by mouth daily. 10/02/19 25 Active nystatin (MYCOSTATIN) 100,000 units/mL suspension Take 200,000 Units by mouth 4 (four) times a day. 10/02/19 25 Active ketoconazole 2 % creamIndications: Rash Apply topically 2 (two) times a day. Apply twice a day to rash. 60 g 2 10/05/19 25 Active sacubitriL-valsar aldridge (ENTRESTO) 24-26 mg per tablet Take 1 tablet by mouth 2 (two) times a day. 60 tablet 1 10/06/19 25 Active MAGNESIUM CITRATE ORAL Take 2 gummies (400 mg) by mouth once daily. Active ketoconazole 2 % creamIndications: Rash Apply topically 3 (three) times a day. To rash on skin folds on groin area and on both legs 60 g 3 10/19/19 25 Active MOUNJARO 7.5 mg/0.5 mL PnIj subcutaneous penIndications:Ty pe 2 diabetes mellitus with peripheral neuropathy [The details of the medication are not available because there are pending changes by a home health clinician.] 6 mL 1 09/17/19 25 025 Discontin ued(No longer taking) ciprofloxacin HCl (CIPRO) 500 MG tablet Take 500 mg by mouth 2 (two) times a day. 09/30/19 25 025 metroNIDAZOLE (FLAGYL) 500 MG tablet Take 500 mg by mouth 3 (three) times a day. 09/30/19 25 025 sodium,potassium phosphates (PHOS-NAK ORAL) Take 1 packet by mouth daily. 10/01/19 025 nitrofurantoin (MACROBID) 100 MG capsuleIndication s:Leukocytosis, unspecified type,Acute cystitis without hematuria Take 1 capsule (100 mg total) by mouth 2 (two) times a day for 5 days. 10 capsule 10/05/19 25 025 Active Problems Problem Noted Date Diagnosed Date [...] recent surgery, will order VNA services for longterm, PT, and OT. PT and OT should be used to help regain her strength and safety and complete ADLs. residential should be used for ostomy teaching as [...] heart failure 10/30/2023 Overview (10/30/2023): Fol with [facility] cardiology- Dr. Christal Nelson MD- ov 09/22/23 - cont same meds- cardiomyopathy was due to LBBB with cardiac resynchronization therapy EF improved. Increase physical activity MEDS Furoseminde 20 poqd/ Xarelto 20 poqd/ Entresto 49-51mg po bid 90 days/ simvastatin 20 hs advised 6m f/u Assessment & Plan (09/30/2024 12:02 PM EDT): She has a history of chronic heart failure following with [facility] cardiology and had an appointment today. [...] meantime. 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 Assessment & Plan (07/24/2015 4:52 PM EDT): [...] has a history of diabetes following with [facility] endocrinology with current management including Mounjaro [...] with problems with glycemic control. Scheduled with opho. Follows w/ podiatry. Umalb/creat up [...] her glucose levels. Up to date with ophtho. Labs are ordered with PCP Assessment & Plan (10/28/2022 9:13 AM EDT): Control excellent on current regimen.Continue to work on eating healthy & keeping active. To call or send in BG with problems with glycemic control. Up to date with ophtho. Foot & nail care good. Advised to [...] and being active. Up to date with ophtho. Annual visit is due at the end of the month, to have copy of note sent to office. Sees podiatry. Will be due for labs before next visit [facility] current use of oral hypoglycemic drug Assessment [...] Encounters Date Type Department Care Team Description 11/02/2024 8:30 AM EDT [facility] [address] [place] [phone] Lizzie Douglas, PT PT DISCIPLINE DISCHARGE VISIT 10/28/2024 11:00 AM EDT Home [facility] Visit [facility] [address] [place] [phone] Leslie Lo, RN SN HOME VISIT 10/28/2024 9:00 AM EDT Home Care Visit [facility] [address] [place] [phone] Diego Alba, OT OT DISCIPLINE DISCHARGE VISIT 10/28/2024 Telephone [facility] [address] [place] [address] Shawn Peterson MD Home OT Discharge 10/26/2024 9:00 AM EDT Home [facility] Visit [facility] [address] [place] [phone] Diego Alba, OT OT HOME VISIT 10/26/2024 8:00 AM EDT Home Care Visit [facility] [address] [place], [place] [phone] Lizzie Douglas, PT PT HOME VISIT 10/24/2024 8:15 AM EDT Home Care Visit [facility] [address] [place], [place] [phone] Karson Blount, SAUD SN HOME VISIT 10/22/2024 [facility]phone [facility] [address] [address] Nadiya Pickard VNA Update 10/21/2024 11:30 AM EDT Home Care Visit [facility] [address] [place] [address] Leslie Lo RN SN HOME VISIT 10/21/2024 9:00 AM EDT Home Care Visit [facility] [address] [place] [phone] Diego Alba, OT OT HOME VISIT 10/19/2024 7:30 AM EDT Home Care Visit [facility] [address] [place], [place] [phone] Lizzie Douglas, PT PT HOME VISIT 10/19/2024 1:00 AM EDT Home Care Visit [facility] [address] [place], [place] [phone] Jeanette Phillips SWITCHING CLERK HOME VISIT 10/18/2024 12:30 PM EDT Home Care Visit [facility] [address] [place], [place] [phone] Leslie Lo, SAUD SN HOME VISIT 10/15/2024 2:30 AM EDT Home Care Visit [facility] [address] [place], [place] [phone] Betty Holloway ELECTRONIC MASKING SYSTEM OPERATOR HOME VISIT 10/15/2024 Home Care Visit [facility] [address] [place] [address] Jeanette Phillips CASE COMMUNICATION 10/14/2024 9:00 AM EDT Home Care Visit [facility] [address] [place] [address] Diego Alba, OT OT HOME VISIT 10/14/2024 8:00 AM EDT Home Care Visit [facility] [address] [place] [address] Lizzie Douglas, PT PT HOME VISIT 10/13/2024 10:30 AM EDT Home Care Visit [facility] [address] [place] [address] Lizzie Douglas, PT PT HOME VISIT 10/12/2024 2:00 AM EDT Home Care Visit [facility] [address] [place] [address] Jeanette Phillips SWITCHING CLERK HOME VISIT 10/12/2024 Orders Only [facility] Endocrinology [address] [phone] Laya Sandoval MD 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 (Primary Dx); Acquired hypothyroidism; Pure hypercholesterolemi a; Type 2 diabetes mellitus with peripheral neuropathy 10/10/2024 10:00 AM EDT Home Care Visit [facility] [address] [place] [address] Luis Enrique Walter, RN SN HOME VISIT 10/08/2024 3:00 PM EDT Home Care Visit [facility] [address] [place] [address] Lizzie Douglas, PT PT EVALUATION 10/07/2024 1:00 PM EDT Home Care Visit [facility] [address] [place] [phone] Leslie Lo RN SN HOME VISIT 10/07/2024 12:30 PM EDT Home Care Visit [facility] [address] [place], [place] [phone] Diego Alba, OT OT EVALUATION 10/07/2024 9:15 AM EDT - 10/07/2024 11:59 PM EDT Hospital Encounter [facility] [address] [place] [phone] Sandra Klein PA-C Discharge Disposition: Home or Self Care 10/07/2024 Telephone [facility] [address] [place] [address] Shawn Peterson MD Verbal orders 10/07/2024 Transcribe Orders [facility] [address] [place] [phone] Sandra Klein PA-C Syncope and collapse (Primary Dx); Dysuria 10/06/2024 12:45 PM EDT Home Care Visit [facility] [address] [place] [address] Jeanette Phillips SWITCHING CLERK HOME VISIT 10/06/2024 Home Care Visit [facility] [address] [place] [address] Lizzie Douglas, PT TELEPHONE ENCOUNTER 10/05/2024 Home Care Visit [facility] [address] [place] [address] Jeanette Phillips CASE COMMUNICATION 10/05/2024 Home Care Visit [facility] [address] [place], [place] [phone] Elda Davis, PT TELEPHONE ENCOUNTER 10/04/2024 11:30 AM EDT Home Care Visit [facility] [address] [place], [place] [phone] Betty Holloway LPN HOME VISIT 10/04/2024 7:11 AM EDT - 10/04/2024 11:59 PM EDT Hospital Encounter [facility] [address] [place] [address] Sandra Klein PA-C Discharge Disposition: Home or Self Care 10/01/2024 9:30 AM EDT Home Care Visit [facility] [address] [place] [phone] Jannette Gibbons, SAUD SN OASIS START OF CARE (SOC) 10/01/2024 Telephone [facility] [address] [place] [address] Tessy Dinh, SAUD VNA Update 10/01/2024 Plan of Care Documentation [facility] [address] [place] [phone] 10/01/2024 Telephone [facility] [address] [place] [address] Tessy Dinh, SAUD Results 10/01/2024 Transcribe Orders [facility] Specimen Processing [address] [place] [address] Sandra Klein PA-C Iron deficiency anemia, unspecified iron deficiency anemia type (Primary Dx) 09/30/2024 11:47 AM EDT - 09/30/2024 11:59 PM EDT Hospital Encounter [facility] [address] [place] [address] Sandra Klein PA-C Discharge Disposition: Home or Self Care 09/30/2024 11:20 AM EDT Office Visit [facility] [address] [place] [address] Sandra Klein PA-C C. difficile colitis (Primary Dx); S/P colectomy; Iron deficiency anemia, unspecified iron deficiency anemia type; Mixed stress and urge urinary incontinence; Bruising; Adenoma of left adrenal gland; Type 2 diabetes mellitus with peripheral neuropathy; Chronic heart failure, unspecified heart failure type; Leukocytosis, unspecified type 09/30/2024 Orders Only [facility] [address] [place] [phone] Homehealth, Interface MD Med 09/29/[address] [address] Shawn Peterson MD Appointment ([facility]) 09/28/2024 Telephone [facility] [address] [place] [address] Shawn Peterson MD referral 09/16/2024 Refill [facility] [address] [place] [phone] Laya Sandoval MD Medication Refill 09/14/2024 8:59 AM EDT - 09/14/2024 11:59 PM EDT Hospital Encounter [facility] [address] [place] [address] Sandra Klein PA-C Discharge Disposition: Home or Self Care 08/25/2024 4:20 PM EDT Telemedicine [facility] [address] [place] [address] Sandra Klein PA-C C. difficile diarrhea (Primary Dx); Anemia, unspecified type 08/25/2024 Telephone [facility] [address] [place] [address] Randell Cao [place] 08/25/[address] [address] Shawn Peterson MD 08/23/2024 Orders Only [facility] [address] [place] [address] Sandra Klein PA-C Chronic systolic congestive heart failure (Primary Dx) 08/18/2024 7:14 AM EDT - 08/18/2024 11:59 PM EDT Hospital Encounter [facility] [address] [place] [address] Shawn Peterson MD Discharge Disposition: Home or Self Care 08/11/2024 Orders Only [facility] [address] [place] [address] Provider, MD [place] from Last 3 Months Immunizations Immunization Administration Dates Next Due COVID-19 (Pre-12/02) Pfizer Vaccine, Bivalent 12+ 11/16/2021 COVID-19 (Pre-12/02) Pfizer Vaccine, mRNA, PF 04/23/2020,03/30/2020 COVID-19, Unspecified Formulation 11/27/2020,03/2020 [id number] FORMULATION 12/11/2008 Influenza High-Dose Quadriva lent Preservative [...] 11/05/2024 5:00 AM EDT Home [facility] Visit [facility] [address] [place] [phone] Alma Singh RN [address] [place] [address] 11/08/2024 1:30 AM EDT Home Care Visit [facility] [address] [place] [phone] Leslie Lo RN [address] [place] [address] 11/11/2024 12:30 AM EDT Home Care Visit [facility] [address] [place] [phone] Leslie Lo RN [address] [place] [phone] 11/15/2024 1:30 AM EDT Home Care Visit [facility] [address] [place] [phone] Leslie Lo RN [address] [place] [address] 11/16/2024 8:40 AM EDT Office Visit [facility] [address] [place] [address] Suki Altman PA-C [address] [place] [address] 11/18/2024 Home Care Visit [facility] [address] [place] [phone] Leslie Lo RN [address] [place] [address] 11/22/2024 Home Care Visit [facility] [address] [place] [phone] Leslie Lo RN [address] [place] [address] [email or web address] 11/25/2024 Appointment [facility] [address] [place] [phone] Leslie Lo RN [address] [place] [address] 12/22/2024 9:30 AM EST Office Visit [facility] [address] [place] [address] Shawn Peterson MD [address] [place] [address] 03/14/2025 8:20 AM EST Office Visit [facility] [address] [place] [phone] Laya Sandoval MD [address] [place] [phone] [email or web address] Health Maintenance Due Date Last Done Comments COLOGUARD 1994 FOBT 1994 SIGMOIDOSCOPY 1994 VIRTUAL COLONOSCOPY 1994 FIT TEST 07/30/2024 07/31/2023 INFLUENZA VACCINE (#1) 2024 , 10/31/2022, 10/31/2022, Additional history exists COVID-19 VACCINE ( season) 2024 10/24/2023, 04/29/2023, 10/31/2022, Additional history exists DEPRESSION SCREENING 12/13/2024 12/14/2023 HEMOGLOBIN A1C 02/18/2025 08/18/2024, 04/11, 01/29/2024, Additional history exists TSH LEVEL 03/24/2025 03/24/2024, 07/12, 03/03/2023, Additional history exists BLOOD PRESSURE 05/02/2025 11/02/2024 DIABETIC EYE EXAM 08/10/2025 08/10/2024, , 05/15/2023, Additional history exists CREATININE LEVEL 09/30/2025 09/30/2024, 06/2024, 08/18/2024, Additional history exists Adult Td,Tdap Booster 03/28/2026 03/28/2016 , 10/18/2011, 06/11/2002, Additional history exists COLONOSCOPY 10/19/2028 10/20/2023, 04/2019, 05/05/2015 COLORECTAL CANCER SCREENING 10/19/2028 PNEUMOCOCCAL VACCINES (50+ years) Completed 03/13/2017, 03/07/2016, 04/10/2004 HEPATITIS C SCREENING Completed 03/23/2019, 020 ZOSTER VACCINES Completed 07/17/2019, 08/2018, 02/10/2010 OSTEOPOROSIS SCREENING INITIAL (ONE-TIME) Completed [...] this topic Medical Devices Implanted Type Area Stonework Tracer Device Identifier Shelf Expiration Date Model / Serial / Lot Icd ICD Procedures Procedure Name Priority Date/Time Associated Diagnosis Comments URINE SEDIMENT Routine 10/07/2024 8:00 AM EDT URINALYSIS W/REFLEX URINE CULTURE Routine 10/07/2024 8:00 AM EDT Syncope and collapse Dysuria URINE CULTURE Routine 10/07/2024 8:00 AM EDT URINE SEDIMENT Routine 10/04/2024 12:33 PM EDT URINALYSIS W/REFLEX URINE CULTURE Routine 10/04/2024 12:33 PM EDT Iron deficiency anemia, unspecified iron deficiency anemia type Leukocytosis, unspecified type S/P colectomy C. difficile colitis Bruising Mixed stress and urge urinary incontinence Chronic heart failure, unspecified heart failure type Cardiomyopathy, unspecified type Adenoma of left adrenal gland Long-term current use of injectable noninsulin antidiabetic medication intermediate project manager current use of oral hypoglycemic drug Abdominal migraine, not intractable Cyclical vomiting Dysautonomia Routine general medical examination at a [facility] facility Obstructive sleep apnea syndrome Pure hypercholesterolemia [...] unspecified HF chronicity, unspecified heart failure type HM DIABETES EYE EXAM FOR RESULT ENTRY ONLY Routine 08/10/2024 5:50 PM EDT TSH WITH REFLEX Routine 03/24/2024 [...] Results * (ABNORMAL) Urinalysis w/reflex Urine Culture (10/07/2024 8:00 AM EDT) Only the most recent of2 resultswithin the time period is included. COLOR Yellow Yellow [facility] CLARITY Clear [facility] GLUCOSE 3+(A) Negative [facility] BILI Negative Negative [facility] KETONES Negative Negative [facility] SPECIFIC GRAVITY 1.010 1.005 - 1.030 [facility] BLOOD Negative Negative [facility] PH 6.0 5.0 - 8.0 [facility] Protein-UA Negative Negative [facility] NITRITE Negative Negative [facility] Leukocyte esterase, ur Trace(A) Negative [facility] Urine (Urine) 10/07/2024 8:0 0 AM EDT 10/07/2024 9:23 AM EDT Sandra Klein PA-C URINE ORDERABLES Final Resul t [address] [address] * Urine Culture (10/07/2024 8:00 AM EDT) Special Requests None Reflexed from [id number] 10/07/2024 10:03 AM EDT [facility] Urine Culture NO GROWTH 48HRS 10/09/2024 7:56 AM EDT [facility] Urine 10/07/2024 8:00 AM EDT 10/07/2024 9:23 AM EDT [facility] Latoya ATWOOD-C MICROBIOLOGY - GENERAL ORDER INGRID Final Result Performing Organization Address City/[facility]/ZIP Co de Phone Number [address] [address] * (ABNORMAL) Urine sediment (10/07/2024 8:00 AM EDT) Only the most recent of2 resultswithin the time period is included. WBC 21-49(A) NONE SEEN /hpf [facility] RBC 0-2(A) NONE SEEN /hpf [facility] URINE EPITHELIAL 5-10(A) NONE SEEN [facility] MUCUS NONE SEEN NONE SEEN /hpf [facility] BACTERIA Trace(A) NONE SEEN /hpf [facility] 10/07/2024 8:00 AM EDT 10/07/2024 9:23 AM EDT Sandra SALOMONC URINE ORDERABLES Final Resul t Performing Organization Address [facility] Co de Phone Number [address] [address] * (ABNORMAL) CBC and differential (10/04/2024 7:22 AM EDT) Only the most recent of4 resultswithin the time period is included. WBC 19.81(H) 4.00 - 11.00 K/uL [facility] RBC 4.29 4.00 - 5.20 M/uL [facility] HGB 12.1 12.0 - 16.0 g/dL [facility] HCT 39.5 36.0 - 46.0 % [facility] PLT 380 150 - 450 K/uL [facility] MCV 92.1 80.0 - 100.0 fL [facility] MCH 28.2 27.0 - 31.0 pg [facility] MCHC 30.6(L) 32.0 - 36.0 g/dL [facility] RDW 15.3(H) 11.5 - 14.5 % [facility] MPV 9.7 8.4 - 12.0 fL [facility] NRBC 0.00 0.00 /100 WBCs [facility] ABSOLUTE NRBC 0.00 0.00 K/uL [facility] DIFF METHOD Manual [facility] TOTAL CELLS COUNTED 100 [facility] NEUTS 75.0 48.0 - 76.0 % [facility] BANDS 3.0 0 - 10 % [facility] LYMPHS 13.0(L) 18.0 - 41.0 % [facility] MONOS 5.0 4.0 - 11.0 % [facility] EOS 1.0 0.0 - 5.0 % [facility] MYELOS 2.0(H) 0 % [facility] METAS 1.0(H) 0 % [facility] ABSOLUTE NEUTS 15.45(H) 1.92 - 7.60 K/uL [facility] ABSOLUTE LYMPHS 2.58 0.72 - 4.10 K/uL [facility] ABSOLUTE MONOS 0.99 0.16 - 1.10 K/uL [facility] ABSOLUTE EOS 0.20 0.00 - 0.50 K/uL [facility] ABSOLUTE MYELOS 0.40 K/uL [facility] ABSOLUTE METAS 0.20 K/uL [facility] Blood 10/04/2024 7:22 AM EDT 10/04/2024 7:30 AM EDT [facility] PA-C LAB BLOOD ORDERABLES Final R esult Performing Organization Address City/[facility]/ZIP Co de Phone Number [address] [address] * Folate (10/04/2024 7:22 AM EDT) FOLIC ACID 8.2 4.2 - 19.9 ng/mL [facility] Blood 10/04/2024 7:22 AM EDT 10/04/2024 7:30 AM EDT [facility] BLOOD ORDERABLES Final R esult [address] [address] * Vitamin B12 (10/04/2024 7:22 AM EDT) VITAMIN B12 1,107 232 - 1,245 pg/mL [facility] Blood 10/04/2024 7:22 AM EDT 10/04/2024 7:30 AM EDT Sandra Klein PA-C LAB BLOOD ORDERABLES Final R esult [facility] [address] [place] [address] * (ABNORMAL) Comprehensive metabolic panel (09/30/2024 11:47 AM EDT) Only the most recent of2 resultswithin the time period is included. SODIUM 135 133 - 146 mmol/L [facility] POTASSIUM 4.5 3.3 - 5.1 mmol/L [facility] Comment:Specimen slightly he molyzed, result may be falsely elevated. CHLORIDE 102 96 - 108 mmol/L [facility] CO2 19(L) 21 - 35 mmol/L [facility] BUN 4(L) 6 - 19 mg/dL [facility] CREATININE 0.60 0.5 - 1.5 mg/dL [facility] GLUCOSE 127(H) 70 - 99 mg/dL [facility] ALBUMIN 2.6(L) 3.9 - 4.8 g/dL [facility] TOTAL PROTEIN 6.0(L) 6.5 - 8.0 g/dL [facility] CALCIUM 8.5 8.4 - 10.3 mg/dL [facility] ALKALINE PHOSPHATASE 161(H) 39 - 117 U/L [facility] TOTAL BILIRUBIN 0.3 0.0 - 1.2 mg/dL [facility] AST 38(H) 0 - 37 U/L [facility] ALT 11 0 - 40 U/L [facility] GLOBULIN 3.4 1 - 4.8 g/dL [facility] EGFR 94 >59 mL/min/1.7 3m2 [facility] Comment:Estimated glomerular filtration rate calculated using the CKD-EPI refit equation. ANION GAP 19 10 - 20 mmol/L [facility] Blood 09/30/2024 11:4 7 AM EDT 09/30/2024 12:01 PM EDT [facility] PA-C LAB BLOOD ORDERABLES Final R esult Performing Organization Address City/[facility]/ZIP Co de Phone Number [address] [address] * Iron and iron binding capacity (09/30/2024 11:47 AM EDT) IRON 80 30 - 160 ug/dL [facility] IRON BINDING CAPACITY 229 228 - 428 ug/dL [facility] TRANSFERRIN SATURAT. 35 15 - 50 % [facility] Blood 09/30/2024 11:4 7 AM EDT 09/30/2024 12:01 PM EDT [facility] PA-C LAB BLOOD ORDERABLES Final R esult Performing Organization Address [facility]/ZIP Co de Phone Number [address] [address] * (ABNORMAL) C-Reactive Protein (09/30/2024 11:47 AM EDT) C REACTIVE PROTEIN 7.3(H) 0.0 - 4.0 mg/L [facility] Blood 09/30/2024 11:4 7 AM EDT 09/30/2024 12:01 PM EDT [facility] PA-C LAB BLOOD ORDERABLES Final R esult Performing Organization Address City/[facility]/ZIP Co de Phone Number [address] [address] * Phosphorus (09/30/2024 11:47 AM EDT) PHOSPHORUS 2.7 2.7 - 4.5 mg/dL [facility] Blood 09/30/2024 11:4 7 AM EDT 09/30/2024 12:01 PM EDT [facility] LAB BLOOD ORDERABLES Final R esult Performing Organization Address City/[facility]/ZIP Co de Phone Number [address] [address] * Magnesium (09/30/2024 11:47 AM EDT) Only the most recent of3 resultswithin the time period is included. MAGNESIUM 1.8 1.6 - 2.6 mg/dL [facility] Blood 09/30/2024 11:4 7 AM EDT 09/30/2024 12:01 PM EDT [facility] PA-C LAB BLOOD ORDERABLES Final R esult Performing Organization Address City/[facility]/ZIP Co de Phone Number [address] [address] * (ABNORMAL) Ferritin (09/30/2024 11:47 AM EDT) Pathologist [facility] FERRITIN 365(H) 13 - 150 ug/L [facility] Blood 09/30/2024 11:4 7 AM EDT 09/30/2024 12:01 PM EDT [facility]-C LAB BLOOD ORDERABLES Final R esult [address] [address] * (ABNORMAL) Basic metabolic panel (09/14/2024 8:59 AM EDT) SODIUM 139 133 - 146 mmol/L [facility] CHLORIDE 98 96 - 108 mmol/L [facility] POTASSIUM 4.3 3.3 - 5.1 mmol/L [facility] CO2 29 21 - 35 mmol/L [facility] BUN 13 6 - 19 mg/dL [facility] CREATININE 0.80 0.5 - 1.5 mg/dL [facility] GLUCOSE 65(L) 70 - 99 mg/dL [facility] CALCIUM 9.2 8.4 - 10.3 mg/dL [facility] EGFR 77 >59 mL/min/1.7 3m2 [facility] Comment:Estimated glomerular filtration rate calculated using the CKD-EPI refit equation. ANION GAP 16 10 - 20 mmol/L [facility] Blood 09/14/2024 8:59 AM EDT 09/14/2024 9:02 AM EDT Sandra Klein PA-C LAB BLOOD ORDERABLES Final R esult Performing Organization Address City/[facility]/ZIP Co de Phone Number [address] [address] * Hemoglobin A1c (08/18/2024 7:18 AM EDT) HEMOGLOBIN A1C 5.7 4.3 - 5.8 % [facility] Blood 08/18/2024 7:18 AM EDT 08/18/2024 7:26 AM EDT Shawn Peterson MD LAB BLOOD ORDERABLES Final Re sult Performing Organization Address City/[facility]/ZIP Co de Phone Number [address] [address] * (ABNORMAL) Lipid panel (08/18/2024 7:18 AM EDT) HDL 42 mg/dL [facility] Comment: Interpretation <40 mg/dL: Low HDL cholesterol (major risk factor for CHD) Greater than or equal to 60 mg/dL: High HDL cholesterol ( negative risk factor for CHD) HDL - cholesterol is affected by a number of factors, e.g. smoking, excerise, hormones, sex and age. CHOLESTEROL 102 0 - 240 mg/dL [facility] TRIGLYCERIDES 148 30 - 160 mg/dL [facility] LDL 30(L) 50 - 129 mg/dL [facility] Comment: LDL levels in terms of risk for coronary heart disease: <100 mg/dL: Optimal 100-129 mg/dL: Near or above optimal 130-159 mg/dL: Borderline high 160-189 mg/dL: High >190 mg/dL: Very High CARDIAC RISK RATIO 2.4(L) 3.3 - 4.4 [facility] Blood 08/18/2024 7:18 AM EDT 08/18/2024 7:26 AM EDT us Shawn Peterson MD LAB BLOOD ORDERABLES Final Re sult Performing Organization Address City/[facility]/ZIP Co de Phone Number [address] [address] * DIABETES EYE EXAM FOR RESULT ENTRY ONLY (08/10/2024 5:50 PM EDT) Historical Provider HEALTH MAINTENANCE Final Result * TSH with reflex (03/24/2024 7:11 AM EST) TSH 0.39 0.27 - 4.20 uIU/mL [facility] Blood 03/24/2024 7:11 AM EST 03/24/2024 7:17 AM EST us Shawn Peterson MD LAB BLOOD ORDERABLES Final Re sult Performing Organization Address [facility] Co de Phone Number [address] [address] * ENDOSCOPY, COLON (10/20/2023 10:10 AM EDT) Narrative Transcriptions Jie Ramirez MD - 10/20/2023 10:10 AM EDT [facility] Patient Name: Elsa Rhodes Attending MD:: JIE RAMIREZ MD, Procedure Date: 10/20/2023 10:10 AM Date of : 1950 Age: 73 Admit Type: Outpatient Gender: Female Room: [place] [address] Referring MD: SHAWN PETERSON MD Exam Type: [...] monitored continuously. The Olympus adult variable colonoscope [id number] #[id number] was introduced through the anus and [...] 10:10 AM Procedure Code(s): --- Professional --- 02901, Colonoscopy, flexible; with removal of tumor(s), polyp(s), or other lesion(s) by snare technique --- Technical --- 49330, Colonoscopy, flexible; with removal of tumor(s), polyp(s), [...] congenital malformations of intestine CPT copyright 2021 [employer]. All rights reserved. The codes documented in this report are preliminary and upon rn perinatal reviewmay be revised to meet current compliance requirements. Procedure Date: 10/20/2023 10:10:[address] [place] [address] us Shawn Peterson MD GI PROCEDURE ORDERABLES Final Result * (ABNORMAL) Fecal immunochemical test x1 (FIT) (07/31/2023 8:00 AM EDT) Immuno Fecal Occult Positive(A ) Negative [facility] Stool (Stool) 07/31/2023 8:0 0 AM EDT 07/31/2023 11:18 AM EDT us Miri Burgess PA-C BODY FLUIDS AND STOOLS ORDERABL ES Final Result [address] [address] * BD DXA AXIAL (SPINE) WITH HIP [...] the right hip was calculated at 1.073 gm/dw5pkli a T-score of 1.1 and Z-score of [...] AM EST) HCV NON-REACTIV E NON-REACTI VE [facility] Blood 03/23/2019 8:18 AM EST 03/23/2019 8:20 AM EST Shawn Peterson MD LAB BLOOD ORDERABLES Final Re sult [facility] [address] [place] [address] from Last 3 Months or Most Recently Relevant to Health Maintenance Insurance MEDICARE PART A & B [email or web address] MEDEX SUPPLEMENT MEDICARE PART A & B [email or web address] MEDEX SUPPLEMENT MEDICARE PART A & B [place] MEDEX SUPPLEMENT MEDICARE PART A & B [employer] MEDEX SUPPLEMENT MEDICARE PART A & B [employer]OSS MEDEX SUPPLEMENT MEDICARE PART A & B [email or web address] MEDEX SUPPLEMENT MEDICARE PART A & B [email or web address] MEDEX SUPPLEMENT MEDICARE PART A & B [email or web address] MEDEX SUPPLEMENT MEDICARE PART A & B [email or web address] MEDEX SUPPLEMENT Care Teams Animal Care Taker Relationship Specialty Start Date End Date Shawn Peterson MD [address] [place] [address] [email or web address] PCP - General Internal Medicine 03/18/14 Jie An MD [address] [place] [address] Television Picture Tube Rebuilder Endocrinology 09/02/17 Shawn Peterson MD [address] [place] [address] [email or web address] Insurance Assigned Provider 05/17/23 Laya Sandoval MD [address] [address] Endocrinology 05/24/19 Delaney Soriano NP [address] [place] [address] Cardiology 05/24/19 Toby Nelson MD [address] [facility] [place] [address] Hospitalist 12/10/19 Additional Source Comments The information contained in this document represents components of the legal health record. It is not the complete legal health record.[facility]
--- OUTSIDE RECORDS SUMMARY | 2024-11-04 17:43 | XMS_ITS | Encounter Summary ---
Author Organization [facility] Address [address] [facility] [address] [place] [address] Phone Care Team Providers Care Rail Car Repair Carman Name Role Phone Shawn Omer MD Primary Care Provider [phone] Kal An MD Unavailable Shawn Omer MD Unavailable [phone] Laya Sandoval MD Unavailable Delaney Soriano NP Unavailable Toby Nelson MD Unavailable [phone] Encounter Details Date Type Department Care Team (Late st Contact Info) Description 10/20/2023 Procedure Pass [facility] Endoscopy Admitting Dept Virtual Department [address] [place] [address] Social History Tobacco Use Types Packs/Day Years [...] 5:00 AM EDT Home Care Visit [facility] [address] [place] [phone] Alma Singh RN [address] [place] [address] 11/08/2024 1:30 AM EDT Home Care Visit [facility] [address] [place] [phone] Leslie Lo RN [address] [place] [address] 11/11/2024 12:30 AM EDT Home Care Visit [facility] [address] [place] [phone] Leslie Lo RN [address] [place] [address] 11/15/2024 1:30 AM EDT Home Care Visit [facility] [address] [place] [phone] Leslie Lo RN [address] [place] [address] 11/16/2024 8:40 AM EDT Office Visit [place] [address] [place] [address] 11/18/2024 Home Care Visit [facility] [address] [place] [address] Leslie Lo RN [address] [place] [address] 11/22/2024 Home Care Visit [facility] [address] [place] [address] Leslie Lo RN [address] [place] [address] 11/25/2024 Appointment [facility] [address] [place] [phone] Leslie oL RN [address] [place] [address] 12/22/2024 9:30 AM EST Office Visit [facility] Internal Medicine [address] [place] [address] Shawn Omer MD [address] [place] [address] 03/14/2025 8:20 AM EST Office Visit [facility] [place] [address] [place] [phone] Laya Sandoval MD [address] [place] [address] [email or web address] documented as of this encounter Visit Diagnoses Not on filedocumented in this encounter Additional Health Concerns Assessment Noted Time PHQ-2 Depression Total Score: 0 12/12/19 23 1:09 PM EDT documented as of this encounter Care Teams Rail Car Repair Carman Relationship Specialty Start Date End Date Shawn Omer MD [address] [place] [address] [email or web address] PCP - General Internal Medicine 03/18/14 Kal An MD [address] [place] [address] Feed Crusher Endocrinology 09/02/17 Shawn Omer MD [address] [place] [address] [email or web address] Insurance Assigned Provider 05/17/23 Laya Sandoval MD [address] [address] Endocrinology 05/24/19 Delaney Soriano NP [address] [place] [address] Cardiology 05/24/19 Toby Nelson MD [address] [facility] [place] [address] Hospitalist 12/10/19 documented as of this encounter Additional Source Comments The information contained in this document represents components of the legal health record. It is not the complete legal health record.[facility]
== END ==
LOC: HO.CARD 12:56
PROVIDERS: PCP Internal Medicine; Visit Provider Nurse Practitioner Family
DX: I42.9 Cardiomyopathy, unspecified (principal)
CPT/HCPCS: 93306; Q9957

== ENCOUNTER → 2024-11-04 13:00 | Outpatient (BNV) | payer MEDICARE, SELFPAY | PROVIDERS: PCP Internal Medicine; Visit Provider Internal Medicine Cardiovascular Disease | DX: I42.9 Cardiomyopathy, unspecified (principal); I34.81 Nonrheumatic mitral (valve) annulus calcification | CPT/HCPCS: 93306 ==

== ENCOUNTER → 2024-11-11 10:49 | Outpatient (BNVA) | payer MEDICARE, SELFPAY | PROVIDERS: PCP Internal Medicine; Visit Provider Surgery | DX: Z93.2 Ileostomy status (principal) | CPT/HCPCS: 99212 ==

== ENCOUNTER 2024-11-11 10:56 | Outpatient (AMB) | payer MEDICARE, SELFPAY ==
[2024-11-11 11:00] VITALS: BMI 26.3
--- NOTE | 2024-11-11 11:00 | MHC.OFFVIS ---
Vital Signs 11/11/24 11:00 Height 5 ft 4 in Weight 153 lb BMI 26.3 Intake Visit Reasons: s/p ileostomy in [place] Intake Note: Patient presents for one month follow-up s/p exploratory laparotomy, ileostomy on 09-24-2024. Pt c/o; no complaints. Elevator Repairer Required: No Accompanied by: Self / Same As Patient Allergies atenolol Allergy (Intermediate, Verified 11/11/24 11:02) hives Beta-Blockers (Beta-Adrenergic Bloc (BETA-BLOCKERS (BETA-ADRENERGIC BLOC) Allergy (Intermediate, Verified 11/11/24 11:02) HIVES vancomycin (VANCOMYCIN) Adverse Reaction (Intermediate, Verified 11/11/24 11:02) NAUSEA & VOMITING Medication List - Last Reconciled 11/11/24 by Joey De Oliveira MD blood sugar diagnostic (JiaThis Verio test strips) use as directed to test once daily cholecalciferol (vitamin D3) 25 mcg PO DAILY cholestyramine (with sugar) 4 gram 4 grams PO SUTUTHSA@0900 empagliflozin (Jardiance) 10 mg PO DAILY 90 days ferrous sulfate 325 mg PO DAILY fluoxetine 10 mg PO BEDTIME furosemide 20 mg PO DAILY galcanezumab-gnlm (Emgality) 120 mg subcut Q30D hyoscyamine sulfate 0.125 mg sublingual DAILY PRN levothyroxine 112 mcg PO MOTUWETHFRSA@0630 metformin ER 1,000 mg PO BID metoprolol succinate ER 25 mg PO DAILY metronidazole 500 mg PO TID nortriptyline 50 mg PO BEDTIME omeprazole 20 mg PO DAILY ondansetron 8 mg PO Q8H PRN rimegepant (Nurtec ODT) 75 mg PO Q OTHER DAY PRN rivaroxaban (Xarelto) 20 mg PO DAILY@1700 sacubitril-valsartan 49-51 mg (Entresto) 1 tab PO BID simvastatin 20 mg PO BEDTIME tirzepatide (Mounjaro) mg subcut HPI HPI s/p ileostomy in [place]: Details: She is here for a follow-up for her ileostomy. She had undergone emergency subtotal colectomy and an end ileostomy in [place] last September, for C diff colitis with toxic megacolon She says she is doing very well. She had gained some weight. Her stoma is functioning well. She has good oral intake. She feels ?great? overall. [facility] Medical History Ileostomy in place Cataract (lens) fragments in eye following cataract surgery Hypothyroidism HLD (hyperlipidemia) HTN (hypertension) Ischemic bowel disease Bundle branch block, left Diabetes Abdominal migraine Pulmonary embolism Surgical History History of colectomy (09/24/24) Status post biventricular cardiac pacemaker insertion LAP-BAND surgery status History of partial hysterectomy Family History Father CVD (cardiovascular disease) Diabetes Mother Diabetes Mitral valve prolapse Social History Alcohol intake: never Patient Tobacco Use Status: Never used Tobacco service: No Current occupational status: retired Review of Systems Const Denies chills and Denies fever(s) Card Denies chest pain, Denies dyspnea and Denies dyspnea on exertion Resp Denies cough, Denies dyspnea and Denies dyspnea on exertion GI Details: Has ileostomy Denies hematochezia and Denies change in bowel habits Denies hematuria Musc Denies back pain and Denies limited range of motion Neuro Denies focal weakness and Denies convulsions Psych Denies depression and Denies mood swings Physical Exam Vital Signs: BMI result Body Mass Index 26.3 Const General: comfortable and no acute distress Resp Effort & Inspection: normal respiratory effort GI Other: Ileostomy functioning well Palpation (GI): Soft to palpation, not firm, nontender and no guarding Assessment & Plan Assessment & Plan (1) Ileostomy in place: Code(s): Z93.2 - Ileostomy status Category: Medical Plan: She is doing very well after subtotal colectomy and ileostomy in [place] last September. Her ileostomy is functioning well. She denies any complaints with this. She says that she just needs guidance with care with her stoma appliance so she is seeing Joaquim our nurse in the office She understands that reversal of ileostomy we will be a much bigger procedure with significant risks. She says she has other medical issues and understands that proceeding with another major surgery presents with risks. She says she is not in any rocha to proceed with this and says that she is comfortable with the having a ileostomy I will see her again in the office in about 3 months to see how she is doing. Coding Level of Care Code Est Pt Level 3 ([address]4811) Diagnoses Ileostomy in place Z93.2
== END 2024-11-11 11:28 | disposition home or self-care (01) ==
LOC: HO.HGS 10:56
PROVIDERS: PCP Internal Medicine; Visit Provider Surgery
DX: Z93.2 Ileostomy status (principal)
CPT/HCPCS: 99213

== ENCOUNTER → 2024-11-23 23:59 | Outpatient (BNV) | payer MEDICARE, SELFPAY ==
--- NOTE | 2024-12-06 21:53 | MHC.OFFVIS ---
Intake Visit Reasons: Remote HF monitoring- [employer] Allergies atenolol Allergy (Intermediate, Verified 11/11/24 11:02) hives Beta-Blockers (Beta-Adrenergic Bloc (BETA-BLOCKERS (BETA-ADRENERGIC BLOC) Allergy (Intermediate, Verified 11/11/24 11:02) HIVES vancomycin (VANCOMYCIN) Adverse Reaction (Intermediate, Verified 11/11/24 11:02) NAUSEA & VOMITING PFSH Medical History Ileostomy in place Cataract (lens) fragments in eye following cataract surgery Hypothyroidism HLD (hyperlipidemia) HTN (hypertension) Ischemic bowel disease Bundle branch block, left Diabetes Abdominal migraine Pulmonary embolism Surgical History History of colectomy (09/24/24) Status post biventricular cardiac pacemaker insertion LAP-BAND surgery status History of partial hysterectomy Family History Father CVD (cardiovascular disease) Diabetes Mother Diabetes Mitral valve prolapse Social History Alcohol intake: never Patient Tobacco Use Status: Never used Tobacco service: No Current occupational status: retired Office Procedures Cardiac Device Check Cardiac Device Check Details: HF On going volume overload in october with improvement towards end of the month. [id number] Cardiac Device Interrogation, cardio physiologic monitor Procedure code (CPT) selection complete Assessment & Plan Assessment & Plan (1) Chronic heart failure: Code(s): I50.9 - Heart failure, unspecified Category: Medical Plan Coding Level of Care Code Procedure Only Diagnoses Chronic heart failure I50.9 CPT Codes Cardiac Device Check - Cardiac Device 15: [id number] Cardiac Device Interrogation, cardio physiologic monitor ([id number])
== END ==
PROVIDERS: PCP Internal Medicine; Visit Provider Internal Medicine Cardiovascular Disease
DX: I50.9 Heart failure, unspecified (principal); Z95.810 Presence of automatic (implantable) cardiac defibrillator
CPT/HCPCS: 93297

== ENCOUNTER → 2024-12-16 13:59 | Outpatient (BNVA) | payer MEDICARE, SELFPAY | PROVIDERS: PCP Internal Medicine; Visit Provider Surgery | DX: R10.9 Unspecified abdominal pain (principal) | CPT/HCPCS: 99211 ==

== ENCOUNTER 2025-01-17 12:33 | Outpatient (AMB) | payer MEDICARE, SELFPAY ==
--- OUTSIDE RECORDS SUMMARY | 2025-01-17 09:40 | XMS_ITS | Encounter Summary ---
Author Organization [facility] Address [address] [facility] [address] [place] [address] Phone Care Team Providers Care Fuse Spooler Name Role Phone Shawn Omer MD Primary Care Provider [phone] Kal An MD Unavailable Shawn Omer MD Unavailable Laya Sandoval MD Unavailable Delaney Soriano NP Unavailable Toby Nelson MD Unavailable [phone] Encounter Details Date Type Department Care Team (Late st Contact Info) Description 01/17/2025 9:40 AM EST Office Visit [facility] Endocrinology [address] [address] Suki Altman PA-C [address] [place] [address] Type 2 diabetes mellitus with peripheral neuropathy (Primary Dx) Social History Tobacco Use Types Packs/Day Years Used Date Smoking Tobacco: Never Passive Smoke Exposure: Never Smokeless Tobacco: Never Alcohol Use Standard Drinks/Week Comments Never 0 (1 standard drink = 0.6 oz pur e alcohol) Home Health Assessment: Transportation Answer Date Recorded Lack of Transportation (Medical) No 11/09/2024 Lack of Transportation (Non-Medical) No 11/09/2024 Patient Unable or Declines to Respond No 11/09/2024 Education Answer Date Recorded Are you interested [...] as food, clothing, or medical care? No 12/21/2024 In the past 12 months have y ou been in a relationship with a person who hurts, threatens, or tries to control you? No 12/21/2024 Are you denied basic needs s uch as food, clothing, or medical care? No 12/21/2024 In the past 12 months have y ou been in a relationship with a person who hurts, threatens, or tries to control you? No 12/21/2024 Comments No Sex and Gender Information Value Date Recorded Sex Assigned at Not on file Legal Sex Female 8:48 AM EST Gender Identity Not on file Sexual Orientation Not on file documented as of this encounter Last Filed Vital Signs Vital Sign Reading Time Taken Comments Blood Pressure 122/74 01/17/2025 10:01 AM EST Pulse 95 01/17/2025 10:01 AM EST Temperature - - Respiratory Rate - - Oxygen Saturation 95% 01/17/2025 10:01 AM EST Inhaled Oxygen Concentration - - Weight - - Height 158.9 cm (5' 2.56 ) 01/17/2025 10:[address] Body Mass Index - - documented in this encounter Progress Notes * Suki Altman PA-C - 01/17/2025 9:40 AM EST Images from the original note were not included. Subjective: Patient ID: Elsa Rhodse is a 74 y.o. female. Patient is here to have the office provided dexcom G6 professional CGM downloaded Current Outpatient Medications Ordered in [facility]: cholecalciferol, vitamin D3, 25 mcg (1,000 unit) capsule, Take 1,000 Units by mouth as directed. 1000 units Sun/Tue/Th/Sat & 2000 units MWF (Patient taking differently: Take 1,000 Units by mouth daily.) empagliflozin (JARDIANCE) 10 mg tablet, Take 1 tablet (10 mg total) by mouth daily. ferrous gluconate 324 mg (37.5 mg elemental) Tab, take 1 tablet by mouth every day fluoride, sodium, (PREVIDENT 5000 BOOSTER) 1.1 % Pste, 1 application 2 (two) times a day. FLUoxetine (PROZAC) 10 MG capsule, TAKE 1 CAPSULE DAILY ketoconazole 2 % cream, Apply topically 2 (two) times a day. Apply twice a day to rash. (Patient taking differently: Apply topically as needed. Apply twice a day to rash.) levothyroxine (SYNTHROID, LEVOTHROID) 88 MCG tablet, TAKE 1 TABLET EVERY MORNING MAGNESIUM CITRATE ORAL, Take 2 gummies (400 mg) by mouth once daily. Medication-Free Text, as directed Dx: NIDDM/Polyneuropathy (E11.42), Hammertoe Foot Deformity (M20.41,M20.42), Preulcerative Skin Lesion(s) (L85.1 metFORMIN (GLUCOPHAGE-XR) 500 MG 24 hr tablet, TAKE 2 TABLETS TWICE A DAY OR DIRECTED metoprolol succinate (TOPROL-XL) 25 MG 24 hr tablet, TAKE 1 TABLET DAILY nortriptyline (PAMELOR) 50 MG capsule, TAKE 1 CAPSULE NIGHTLY AT BEDTIME omeprazole (PRILOSEC) 20 MG capsule, TAKE 1 CAPSULE DAILY ondansetron (ZOFRAN-ODT) 8 MG disintegrating tablet, Take 1 tablet (8 mg total) by mouth every 8 (eight) hours as needed for nausea. ONETOUCH VERIO Strp strips, USE DIRECTED ONCE EVERY DAY rivaroxaban (XARELTO) 20 mg Tab, Take 1 tablet (20 mg total) by mouth daily. sacubitriL-valsartan (ENTRESTO) 49-51 mg per tablet, Take 1 tablet by mouth 2 (two) times a day. simvastatin (ZOCOR) 20 MG tablet, Take 1 tablet (20 mg total) by mouth nightly at bedtime. triamcinolone acetonide 0.1 % cream, Apply 1 Application topically daily as needed (for skin issues). has not needed furosemide (LASIX) 20 MG tablet, Take 1 tablet (20 mg total) by mouth daily. (Patient taking differently: Take 20 mg by mouth 3 (three) times a week on Friday, Friday, Friday.) galcanezumab-gnlm (EMGALITY) 120 mg/mL subcutaneous syringe, Inject 1 mL (120 mg total) under the skin every 30 (thirty) days. Objective: Physical Exam Vitals reviewed. Constitutional: Appearance: Normal appearance. Skin: General: Skin is warm. Neurological: Mental Status: She is alert and oriented to person, place, and time. Psychiatric: Mood and Affect: Mood normal. Behavior: Behavior normal. Assessment/Plan: Problem List Items Addressed This Visit Type 2 diabetes mellitus with peripheral neuropathy - Primary Control is reasonable/good based upon the patient's office provided dexcom G6 professional CGM download. Her average glucose level was 137, time in range is 86%, time high is 14%, time very low is <1%. Her glucose levels are doing well off of the mounjaro. Will maintain her regimen. Continue to work on eating healthy and being active. To call or message with any issues managing her glucose levels. documented in this encounter Miscellaneous Notes * Assessment & Plan Note - Suki Altman PA-C - 01/17/2025 10:36 AM ESTAssociated Problem(s): Type 2 diabetes mellitus with peripheral neuropathy Control is reasonable/good based upon the patient's office provided dexcom G6 professional CGM download. Her average glucose level was 137, time in range is 86%, time high is 14%, time very low is <1%. Her glucose levels are doing well off of the mounjaro. Will maintain her regimen. Continue to work on eating healthy and being active. To call or message with any issues managing her glucose levels. documented in this encounter Plan of Treatment Upcoming Encounters Date Type Department Care Team (Late st Contact Info) Description 01/20/2025 10:00 AM EST Nutrition [facility] General Surgical Care [address] [place] [address] Beverly Pat LDN [address] Kate[address] [place] [address] 03/14/2025 8:20 AM EST Office Visit [facility] Endocrinology [place] [address] [place] [phone] Laya Sandvoal MD [address] [address] 06/13/2025 10:30 AM EDT Office Visit [facility] Internal Medicine [address] [place] [address] Shawn Omer MD [address] [place], [place] [phone] 07/25/2025 8:40 AM EDT Office Visit [facility] [address] [place] [phone] Suki Altman PA-C [address] [place] [address] documented as of this encounter Visit Diagnoses Diagnosis Type 2 diabetes mellitus with peripheral neuropathy- Primary documented in this encounter Additional Health Concerns Assessment Noted Time PHQ-2 Depression Total Score: 0 12/22/19 25 4:03 PM EST documented as of this encounter Care Teams Fuse Spooler Relationship Specialty Start Date End Date Shawn Omer MD [address] [place], [place] [phone] PCP - General Internal Medicine 03/18/14 Kla An MD [address] [place] [address] Art Display Maker Endocrinology 09/02/17 Shawn Omer MD [address] [place] [address] Insurance Assigned Provider 05/17/23 Laya Sandoval MD [address] [place] [address] Endocrinology 05/24/19 Delaney Soriano NP [address] [place] [address] Dr [address] [place] [address] [place] [address] Cardiology 05/24/19 Toby Nelson MD [address] [place] [address] [place] [address] Hospitalist 12/10/19 documented as of this encounter Additional Source Comments The information contained in this document represents components of the legal health record. It is not the complete legal health record.[facility]
--- NOTE | 2025-01-17 12:37 | A.OFFVIS_ITS ---
Vital Signs 01/17/25 12:41 Height 5 ft 4 in Weight 157 lb 13.616 oz BMI 27.1 BP 100/60 Blood Pressure Location Lt brachial Position Sitting Pulse 78 Pulse Source Pulse Oximeter Intake Visit Reasons: 6 mth f/up Intake Note: 6 mth f/up Enterprise Application Administrator Required: No Accompanied by: Self / Same As Patient Allergies atenolol Allergy (Intermediate, Verified 11/11/24 11:02) hives Beta-Blockers (Beta-Adrenergic Bloc (BETA-BLOCKERS (BETA-ADRENERGIC BLOC) Allergy (Intermediate, Verified 11/11/24 11:02) HIVES vancomycin (VANCOMYCIN) Adverse Reaction (Intermediate, Verified 11/11/24 11:02) NAUSEA & VOMITING Medication List - Last Reconciled 01/17/25 by Toby Nelson MD blood sugar diagnostic ([employer] Verio test strips) use as directed to test once daily cholecalciferol (vitamin D3) 25 mcg PO DAILY cholestyramine (with sugar) 4 gram 4 grams PO SUTUTHSA@0900 empagliflozin (Jardiance) 10 mg PO DAILY 90 days ferrous sulfate 325 mg PO DAILY fluoxetine 10 mg PO BEDTIME furosemide 20 mg PO MOWEFR galcanezumab-gnlm (Emgality) 120 mg subcut Q30D hyoscyamine sulfate 0.125 mg sublingual DAILY PRN levothyroxine 112 mcg PO MOTUWETHFRSA@0630 metformin ER 1,000 mg PO BID metoprolol succinate ER 25 mg PO DAILY metronidazole 500 mg PO TID nortriptyline 50 mg PO BEDTIME omeprazole 20 mg PO DAILY ondansetron 8 mg PO Q8H PRN rimegepant (Nurtec ODT) 75 mg PO Q OTHER DAY PRN rivaroxaban (Xarelto) 20 mg PO DAILY@1700 sacubitril-valsartan 49-51 mg (Entresto) 1 tab PO BID simvastatin 20 mg PO BEDTIME tirzepatide (Mounjaro) mg subcut HPI Comments Details: 74-year-old female who is here for follow-up. She has background history of nonischemic cardiomyopathy which was thought to be related to left bundle-branch block. She underwent cardiac catheterization which did not show any coronary disease. She underwent SHIFT SUPERVISOR FILM PROCESSING in April 2021. With guideline directed medical therapy and cardiac resynchronization therapy-her ejection fraction improved from 20-25% to 50-55%. She still has significant dyssynchrony by echocardiography but overall ejection fraction is improved. Clinically she has been stable and does not have any significant CHF symptoms. She has been doing well. She has no chest pain shortness of breath. No orthopnea PND. Taking medications regularly. No peripheral edema. She previously was getting abdominal migraines with significant diarrhea leading to vasovagal syncope. She had 1 episode in May which she had abdominal gurgling but did not have any hypotension and she did hydration and did not have any syncope this time. Overall she has been doing well and is clinically quite stable. Her ejection fraction based on repeat echocardiography in April was normal. 10/23/22: She returns for follow-up. She is doing well. No chest discomfort shortness of breath. Has been walking up to 2 miles per day without any significant issues. Blood pressure control is good. Tolerating medications well. 03/17/2023: She returns for follow-up. She recently had pneumonia and was treated with antibiotics. She said she was feeling short of breath before that but this has improved. He had blood workup which showed normal BNP level and slightly elevated triglycerides at 200. She said this was a nonfasting blood test. Otherwise she has been doing great and has no exertional complaints. Only thing she has notices that she gets tired easily but she does not exercise regularly. 09/22/2023: She is here for f/u. Doing very well. Clinically euvolemic. Taking meds and tolerating. 01/21/24: She is here for follow-up. She is been doing well. Clinically stable and has no heart failure symptoms. Doing quite well and is planning to start doing some voluntary work at [facility]. 07/12/2024: Here for follow-up. She has been doing well. 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. She has no chest pains or shortness of breath. Euvolemic at this stage and tolerating medications. 01/17/2025: She is here for follow-up. 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 Subsequently she was seen in the office and was noticed to have significant weight gain from volume resuscitation. She was improving on her own and diuretics were not increased. She is saying that she is taking Lasix 4 times a week at this point. Overall breathing is stable. Blood pressure is little low. She currently has an ileostomy. [facility] Medical History Ileostomy in place Cataract (lens) fragments in eye following cataract surgery Hypothyroidism HLD (hyperlipidemia) HTN (hypertension) Ischemic bowel disease Bundle branch block, left Diabetes Abdominal migraine Pulmonary embolism Surgical History History of colectomy (09/24/24) Status post biventricular cardiac pacemaker insertion LAP-BAND surgery status History of partial hysterectomy Family History Father CVD (cardiovascular disease) Diabetes Mother Diabetes Mitral valve prolapse Social History Alcohol intake: never Patient Tobacco Use Status: Never used Tobacco service: No Current occupational status: retired Review of Systems Const Denies chills, Denies fatigue, Denies fever(s), Denies frequent falls, Denies weakness, Denies weight gain and Denies weight loss ENT Denies dizziness Card Denies chest pain, Denies leg edema, Denies lightheadedness, Denies palpitations, Denies dyspnea and Denies dyspnea on exertion Resp Denies cough, Denies dyspnea and Denies dyspnea on exertion GI Denies hematochezia Musc Denies abnormal gait, Denies muscle weakness, Denies numbness, Denies radiating pain into limb and Denies tingling Neuro Denies abnormal gait, Denies dizziness, Denies frequent falls, Denies numbness, Denies tingling and Denies weakness Endo Denies fatigue and Denies palpitations Physical Exam Vital Signs: Last Vital Signs Pulse 78 01/17/25 12:41 BP 100/60 01/17/25 12:41 BMI result Body Mass Index 27.1 GENERAL APPEARANCE: in no acute distress, pleasant. NECK: no carotid bruit, no jugular venous distention. SKIN: no suspicious lesions, warm and dry. HEART: no murmurs, regular rate and rhythm. LUNGS: clear to auscultation bilaterally. ABDOMEN: soft, nontender. Ileostomy in place. EXTREMITIES: no edema. PERIPHERAL PULSES: equal. NEUROLOGIC: No gross deficits, AAO X 3 Assessment & Plan Assessment & Plan (1) Hypertension: Comment: Stable Code(s): I10 - Essential (primary) hypertension Category: Medical Qualifiers: Hypertension type: essential hypertension Qualified Code(s): I10 - Essential (primary) hypertension (2) Chronic heart failure: Code(s): I50.9 - Heart failure, unspecified Category: Medical Plan Pleasant 74 year lady who is here for follow-up. She had left bundle-branch block cardiomyopathy now status post CRTD with improvement in ejection fraction back to normal. She unfortunately had toxic megacolon from C diff colitis and had colectomy done in [place]. She has a ileostomy at this point. Overall volume status appears to be good. She is using Lasix 4 times a week. Blood pressure is little low. I have advised her to keep herself well hydrated and keep an eye on the blood pressure. If any concern about fatigue/dizziness then we may have to cut back on her Entresto. Clinically stable. Follow-up in few months. Thank you for allowing me to participate in the care of your patient. Please feel free to contact me if you have any questions. Medications: Changed From furosemide 20 mg PO DAILY 90 tabs 3RF To furosemide 20 mg PO MOWEFR Coding Level of Care Code Est Pt Level 4 (62097) Diagnoses Essential hypertension I10 Hypertension type: essential hypertension Chronic heart failure I50.9
[2025-01-17 12:41] VITALS: BP 100/60; PULSE 78; BMI 27.1
--- OUTSIDE RECORDS SUMMARY | 2025-01-17 21:13 | XMS_ITS | Encounter Summary ---
Author Organization [facility] Address [address] [employer] [facility] [address] [place] [address] Phone Care Team Providers Care Bessemer Bottom Maker Name Role Phone Shawn Omer MD Primary Care Provider Kal An MD Unavailable [phone] Shawn Omer MD Unavailable [phone] Laya Sandoval MD Unavailable Delaney Soriano NP Unavailable Toby Nelson MD Unavailable [phone] Encounter Details Date Type Department Care Team (Late st Contact Info) Description 11/22/2024 Transcribe Orders [facility] Phleb Main [address] [place] [address] Laya Sandoval MD [address] [address] Type 2 diabetes mellitus with peripheral neuropathy [...] Info) Description 01/20/2025 10:00 AM EST Nutrition [facility] General Surgical Care [address] [place] [address] Beverly Pat LDN [address] [place] [address] 03/14/2025 8:20 AM EST Office Visit [facility] 40 [facility] [place] [phone] Laya Sandoval MD 22 [facility] [address] [place] [address] 06/13/2025 10:30 AM EDT Office Visit [facility] Internal Medicine [address] [place] [address] Shawn Omer MD [address] [place] [address] [email or web address] 07/25/2025 8:40 AM EDT Office Visit [facility] Endocrinology [place] [address] [place] [phone] Suki Altman PA-C [address] [place] [address] [email or web address] documented as of this encounter Results * Microalbumin/creatinine ratio, random urine (12/06/2024 8:30 AM EDT) URINE MICROALBUMIN <1.2 0 - 2.3 mg/dL [facility] URINE CREATININE 88 mg/dL [facility] MICROALB/CRE RATIO NOT CALCULATED 0 - 20 mg/g Cre [facility] Comment:due to Microalbumin <1.2 Urine (Urine) 12/06/2024 8:3 0 AM EDT 12/06/2024 10:34 AM EDT Laya Sandoval MD LAB URINE ORDERABLES F inal Result [address] [address] documented in this encounter Visit Diagnoses Diagnosis Type 2 diabetes mellitus with peripheral neuropathy- Primary documented in this encounter Additional Health Concerns Assessment Noted Time PHQ-2 Depression Total Score: 0 12/14/19 24 1:10 PM EST documented as of this encounter Care Teams Bessemer Bottom Maker Relationship Specialty Start Date End Date Shawn Omer MD [address] [place], [place] PCP - General Internal Medicine 03/18/14 Kal An MD [address] [place] [address] School Cafeteria Head Cook Endocrinology 09/02/17 Shawn Omer MD [address] [place] [address] Insurance Assigned Provider 05/17/23 Laya Sandoval MD [address] [place] [address] Endocrinology 05/24/19 Delaney Soriano NP [address] [place] [address] Dr [address] [place] [address] Cardiology 05/24/19 Toby Nelson MD [address] [place] [address] [place] [address] Hospitalist 12/10/19 documented as of this encounter Additional Source Comments The information contained in this document represents components of the legal health record. It is not the complete legal health record.[facility]
--- OUTSIDE RECORDS SUMMARY | 2025-01-17 21:14 | XMS_ITS | Encounter Summary ---
Author Organization [facility] Address [address] [employer] [facility] [address] [place] [address] Phone Care Team Providers Care Paper Box Maker Name Role Phone Shawn Omer MD Primary Care Provider [phone] Kal An MD Unavailable Shawn Omer MD Unavailable Laya Sandoval MD Unavailable Delaney Soriano NP Unavailable [phone] Toby Nelson MD Unavailable [phone] Encounter Details Date Type Department Care Team (Late st Contact Info) Description 12/22/2024 Orders Only [facility] [place] Internal Medicine [address] [place] [address] Provider, MD [place] [address] [place] [address] Social History Tobacco Use Types Packs/Day Years [...] Info) Description 01/20/2025 10:00 AM EST Nutrition [facility] General Surgical Care [address] [place] [address] Beverly Pat LDN [address] [place] [address] 03/14/2025 8:20 AM EST Office Visit [facility] Endocrinology [place] [address] [facility] [place] [phone] Laya Sandoval MD [address] [place] [address] 06/13/2025 10:30 AM EDT Office Visit [facility] Internal Medicine [address] [place] [address] Shawn Omer MD [address] [place], [place] [phone] 07/25/2025 8:40 AM EDT Office Visit [facility] Endocrinology [place] [address] [place] [phone] Suki Altman PA-C [address] [place] [address] documented as of this encounter Procedures Procedure Name Priority Date/Time Associated Diagnosis Comments OUTSIDE IMAGING Routine 12/22/2024 4:15 PM EST documented in this encounter Results * Outside Imaging Report Only (12/22/2024 4:15 PM EST) us Historical Provider IMRisa XR CHEST Final Res ult documented in this encounter Visit Diagnoses Not on filedocumented in this encounter Additional Health Concerns Assessment Noted Time PHQ-2 Depression Total Score: 0 12/22/19 25 4:03 PM EST documented as of this encounter Care Teams Paper Box Maker Relationship Specialty Start Date End Date Shawn Omer MD [address] [place] [address] PCP - General Internal Medicine 03/18/14 Kal An MD [address] [place] [address] Bicycle Taxi Driver Endocrinology 09/02/17 Shawn Omer MD [address] [place] [address] Insurance Assigned Provider 05/17/23 Laya Sandoval MD [address] [place] [address] [email or web address] Endocrinology 05/24/19 Delaney Soriano NP [address] [place] [address] Dr [address] [place] [address] Cardiology 05/24/19 Toby Nelson MD [address] [place] [address] [place] [address] Hospitalist 12/10/19 documented as of this encounter Additional Source Comments The information contained in this document represents components of the legal health record. It is not the complete legal health record.[facility]
--- OUTSIDE RECORDS SUMMARY | 2025-01-17 21:14 | XMS_ITS | Encounter Summary ---
Author Organization [facility] Address [address] [facility] [address] [place] [address] Phone Care Team Providers Care Airplane Dispatcher Name Role Phone Shawn Omer MD Primary Care Provider [phone] Brianna Rodriguez TELEPHONIC NURSE CASE MANAGER Unavailable Unavailable Shawn Omer MD Unavailable Markell Beltre MD Unavailable Nohemi Fuentes TELEPHONIC NURSE CASE MANAGER Unavailable [phone] Leann Simons TELEPHONIC NURSE CASE MANAGER Unavailable [phone] Kal An MD Unavailable Shawn Omer MD Unavailable Laya Sandoval MD Unavailable Delaney Soriano NP Unavailable Toby Nelson MD Unavailable [phone] Encounter Details Date Type Department Care Team (Late st Contact Info) Description 02/12/2019 Procedure Pass [facility] Endoscopy Admitting Dept Virtual Department 30 [place], [place] [id number] Social History Tobacco Use Types Packs/Day Years [...] Info) Description 01/20/2025 10:00 AM EST Nutrition [facility] General Surgical Care [address] [place] [address] Beverly Pat LDN [address] Kate[address] [place] [address] 03/14/2025 8:20 AM EST Office Visit [facility] Endocrinology [place] 40 [place] [phone] Laya Sandoval MD [address] [address] 06/13/2025 10:30 AM EDT Office Visit [facility] Internal Medicine 40 [place] [address] Shawn Omer MD 40 [place] [address] 07/25/2025 8:40 AM EDT Office Visit [facility] Endocrinology [place] 40 [place] [phone] Suki Altman PA-C 22 [place], [place] [phone] documented as of this encounter Visit Diagnoses Not on filedocumented in this encounter Additional Health Concerns Infection Onset Date Last Indicated Resolved Time 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 close contact 12/31/2019 12/31/2019 01/14/2020 1:23 AM EST Assessment Noted Time PHQ-2 Depression Total Score: 2 12/02/19 19 8:37 AM EDT documented as of this encounter Care Teams Airplane Dispatcher Relationship Specialty Start Date End Date Shawn Omer MD 40 [place] [address] [email or web address] PCP - General Internal Medicine 03/18/14 Brianna Rodriguez TELEPHONIC NURSE CASE MANAGER 164 [place] [address] Historical LMR Provider 11/25/1605/11 Shawn Omer MD 40 [place] [address] [email or web address] Historical LMR Provider 11/25/16 05/23/19 Markell Beltre MD [address] [place] [address] [email or web address] Historical LMR Provider 11/25/16 Nohemi Fuentes, JEFF [address] [place] [address] Historical LMR Provider 11/25/16 Leann Simons NP [address] [place] [address] 6 [place] [address] [email or web address] Historical LMR Provider 11/25/16 05/23/19 Kal An MD [address] [place] [address] 6 [place] [address] Electronics Commodity Manager Endocrinology 09/02/17 Shawn Omer MD 40 [place] [address] [email or web address] Insurance Assigned Provider 05/17/23 Laya Sandoval MD [address] [place] [address] Endocrinology 05/24/19 Delaney Soriano NP [address] [place] [address] Dr Gonzalez 3 [place] [address] Cardiology 05/24/19 Toby Nelson MD [address] [place] [address] [place] [address] Hospitalist 12/10/19 documented as of this encounter Additional Source Comments The information contained in this document represents components of the legal health record. It is not the complete legal health record.[facility]
--- OUTSIDE RECORDS SUMMARY | 2025-01-17 21:14 | XMS_ITS | Encounter Summary ---
Author Organization [facility] Address 399 [facility] [place] [address] [place] [address] Phone Care Team Providers Care Valve Liner Rubber Name Role Phone Shawn Omer MD Primary Care Provider [phone] Kal An MD Unavailable Shawn Omer MD Unavailable [phone] Laya Sandoval MD Unavailable Delaney Soriano NP Unavailable Toby Nelson MD Unavailable [phone] Encounter Details Date Type Department Care Team (Late st Contact Info) Description 08/25/2024 Telephone [facility] [address] [place], [place] [phone] Shawn Omer MD [address] [place] [address] [email or web address] Social History Tobacco Use Types Packs/Day Years [...] Info) Description 01/20/2025 10:00 AM EST Nutrition [facility] General Surgical Care [address] [place] [address] Beverly Pat LDN [address] Kate[address] [place] [address] [email or web address] 03/14/2025 8:20 AM EST Office Visit [facility] Endocrinology [place] 40 [place] [address] Laya Sandoval MD [address] [address] 06/13/2025 10:30 AM EDT Office Visit [facility] Internal Medicine 40 [place] [address] Shawn Omer MD 40 [place] [address] 07/25/2025 8:40 AM EDT Office Visit [facility] Endocrinology [place] 40 [place] [phone] Suki Altman PA-C 22 [place] [address] documented as of this encounter Visit Diagnoses Not on filedocumented in this encounter Additional Health Concerns Assessment Noted Time PHQ-2 Depression Total Score: 0 12/14/19 24 1:10 PM EST documented as of this encounter Care Teams Valve Liner Rubber Relationship Specialty Start Date End Date Shawn Omer MD 40 [place] [address] PCP - General Internal Medicine 03/18/14 Kal An MD 40 [place] [address] Fitness Attendant Endocrinology 09/02/17 Shawn Omer MD 40 [place] [address] Insurance Assigned Provider 05/17/23 Laya Sandoval MD [address] [address] Endocrinology 05/24/19 Delaney Soriano NP [address] [place] [address] [place] [address] Cardiology 05/24/19 Toby Nelson MD [address] [facility] [place] [address] Hospitalist 12/10/19 documented as of this encounter Additional Source Comments The information contained in this document represents components of the legal health record. It is not the complete legal health record.[facility]
--- OUTSIDE RECORDS SUMMARY | 2025-01-17 21:15 | XMS_ITS | Encounter Summary ---
Author Organization [facility] Address [address] [facility] [address] [place] [address] Phone Care Team Providers Care Linotypist Name Role Phone Shawn Omer MD Primary Care Provider Brianna Rodriguez CONTROL CLERK AUDITING Unavailable Unavailable Shawn Omer MD Unavailable [phone] Markell Beltre MD Unavailable Nohemi Fuentes CONTROL CLERK AUDITING Unavailable [phone] Leann Simons CONTROL CLERK AUDITING Unavailable [phone] Kal An MD Unavailable Shawn Omer MD Unavailable [phone] Laya Sandoval MD Unavailable Delaney Soriano NP Unavailable Toby Nelson MD Unavailable [phone] Reason for Referral * Consultation (Elective) - Closed Specialty Diagnoses / Procedures Referred By Mary Alice diaz Referred To Contact Neurology Diagnoses Autonomic neuropathy System, Provider Not In, PhD [address] [address] Phone: tel: Referral ID Status Reason Start Date Expiration Date Visits Re quested Visits Authorized [id number] Closed 10/19/2018 10/20/2019 1 1 Encounter Details Date Type Department Care Team (Late Contact Info) Description 10/19/2018 Transcribe Orders [facility] Department of Neurology [address] [facility], 8th Floor, [address] [place] [address] System, Provider Not In, PhD Partners [address] [address] Autonomic neuropathy (Primary Dx) Social History Tobacco [...] Department Care Team (Late Contact Info) Description 01/20/2025 10:00 AM EST Nutrition [facility] General Surgical Care [address] [place] [address] Beverly Pat LDN [address] [place] [place] [address] [email or web address] 03/14/2025 8:20 AM EST Office Visit [facility] Endocrinology [place] 40 [place] [address] Laya Sandoval MD [address] [place] [address] 3rd [place] [address] 06/13/2025 10:30 AM EDT Office Visit [facility] Internal Medicine 40 [place] [address] Shawn Omer MD 40 [place] [address] 07/25/2025 8:40 AM EDT Office Visit [facility] Endocrinology [place] 40 [place] [address] Suki Altman PA-C 22 [place] [address] [email or web address] Scheduled Referrals Name Type Priority Associated Diagnoses Order Schedule Ambulatory referral to [facility] Neurology Outpatient Referral Routine Autonomic neuropathy Ordered: [...] documented as of this encounter Care Teams Linotypist Relationship Specialty Start Date End Date Shawn Omer MD 40 [place] [address] [email or web address] PCP - General Internal Medicine 03/18/14 Brianna Rodriguez CONTROL CLERK AUDITING 164 [place] [address] Historical LMR Provider 11/25/1605/11 Shawn Omer MD 40 [place] [address] [email or web address] Historical LMR Provider 11/25/16 05/23/19 Markell Beltre MD [address] [place] [address] [email or web address] Historical LMR Provider 11/25/16 Nohemi Fuentes NP [address] [place] [address] Historical LMR Provider 11/25/16 Leann Simons NP [address] [place] [address] Historical LMR Provider 11/25/16 05/23/19 Kal An MD [address] [place] [address] Wire Frame Dipper Endocrinology 09/02/17 Shawn Omer MD [address] [place] [address] Insurance Assigned Provider 05/17/23 Laya Sandoval MD [address] [place] [address] Endocrinology 05/24/19 Delaney Soriano NP [address] [place] [address] Dr [address] [place] [address] Cardiology 05/24/19 Toby Nelson MD [address] [place] [address] [place] [address] Hospitalist 12/10/19 documented as of this encounter Additional Source Comments The information contained in this document represents components of the legal health record. It is not the complete legal health record.[facility]
--- OUTSIDE RECORDS SUMMARY | 2025-01-17 21:15 | XMS_ITS | Encounter Summary ---
Author Organization [facility] Address [address] [place] [address] Care Team Providers Care Court Attendant Name Role Phone Unknown, Provider Primary Care Provider Unava ilable Encounter Details Date Type Department Care Team (Late st Contact Info) Description 09/24/2024 Lab Requisition [facility] Pathology & Laboratory Medicine - [facility] [address] [place] [address] Raimundo Bronson MD [address] [place] [phone] Encounter for other general examination Social History [...] management options, if applicable. 10/08/2024 1:24 EDT [facility] Final Diagnosis A. COLON, TERMINAL ILEUM AND APPENDIX, RESECTION: - Colon with diffusely sloughed mucosal epithelium, neutrophils, and surface fibrin deposition. See comment. 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 - Appendix with fibrous obliteration. - Terminal ileum without significant diagnostic abnormality. - Three benign reactive lymph nodes. 10/08/2024 1:24 [facility] Diagnosis Comment The patient history [...] performance characteristics have been determined by [facility] and/or by the referring laboratory. The [...] high complexity clinical laboratory testing. 10/08/2024 1:24 [facility] Attestation There was significant resident/fellow involvement in the diagnostic evaluation of this case. By the signature below, the attending physician certifies that they have personally conducted a gross and/or microscopic examination of the described specimens and rendered or confirmed the above diagnosis. 10/08/2024 1:24 [facility] at 0123 EDT Clinical History Fulminant C difficile colitis 10/08/2024 1:24 [facility] Gross Description A. Received in [...] diameter. Cut surfaces are without gross lesions. Sales Account Representative sections are submitted as follows: BLOCK LAMA A1- billing customer service representative en face proximal margin A2- billing customer service representative en face distal margin A3- section cecum A4- section ascending colon A5- section transverse colon A6- section descending colon to include possible mucosal ulceration A7- section proximal sigmoid colon A8- section distal sigmoid colon A9- billing customer service representative lymph nodes A10- billing customer service representative sections mesenteric thin-walled cyst A11- 3 central sections, appendix ANGELIC VILLATORO(ASCP) 09/27/2024 15:09 10/08/2024 1:24 EDT [facility] Resident/Al w: Giuliano Middleton DO 10/08/2024 1:24 EDT [facility] Performing Lab [facility] 1:24 EDT [facility] Scanned Images 10/08/2024 1:24 EDT [facility] Tissue COLON STRUCTURE / Unknown 09/24/2024 14:36 EDT 09/24/2024 23:53 EDT us Raimundo Bronson MD PATHOLOGY ORDERABLES Fin al Result [facility] [address] [place] [address] documented in this encounter Visit Diagnoses Diagnosis Encounter for other general examination documented in this encounter Care Teams Court Attendant Relationship Specialty Start Date End Date Unknown, Provider, PCP - General 09/10/24 documented as of this encounter
--- OUTSIDE RECORDS SUMMARY | 2025-01-17 21:15 | XMS_ITS | Encounter Summary ---
Author Organization [facility] Address [address] [facility] [address] [place] [address] Phone Care Team Providers Care Social Worker Psychiatric Name Role Phone Shawn Omer MD Primary Care Provider [phone] Brianna Rodriguez TAFFY PULLER Unavailable Unavailable Shawn Omer MD Unavailable Markell Beltre MD Unavailable Nohemi Fuentes TAFFY PULLER Unavailable Leann Smions TAFFY PULLER Unavailable [phone] Kal An MD Unavailable Shawn Omer MD Unavailable Laya Sandoval MD Unavailable Delaney Soriano NP Unavailable Toby Nelson MD Unavailable [phone] Encounter Details Date Type Department Care Team (Late st Contact Info) Description 08/21/2018 [facility] [address] [place] [address] Reji Dave PA-C [address] [place] [address] Orthopedics & Sports Medicine, [facility] [place] [address] Left arm pain Social History Tobacco Use [...] Info) Description 01/20/2025 10:00 AM EST Nutrition [facility] General Surgical Care [address] [place] [address] Beverly Pat LDN [address] [place] [address] [place] [address] 03/14/2025 8:20 AM EST Office Visit [facility] Endocrinology [place] 40 [place] [phone] Laya Sandoval MD [address] [place] [address] 06/13/2025 10:30 AM EDT Office Visit [facility] Internal Medicine 40 [place] [address] Shawn Omer MD 40 [place] [address] 07/25/2025 8:40 AM EDT Office Visit [facility] Endocrinology [place] 40 [place] [phone] Suki Altman PA-C [address] [place] [address] [phone] documented as of this encounter Results * XR SHOULDER 2 VIEWS (RIGHT) (08/21/2018 8:27 AM EDT) Narrative SYSTEMGENERATED, DOCUMENTATION - 08/21/2018 8:27 AM EDT This image report has been auto-finalized and has not been read by a Radiologist. Interpretation has been included in the provider encounter note for this date of service. us Reji Dave PA-C IMG XR UPPER EXTREMITY [...] documented as of this encounter Care Teams Social Worker Psychiatric Relationship Specialty Start Date End Date Shawn Omer MD 40 [place] [address] [email or web address] PCP - General Internal Medicine 03/18/14 Brianna Rodriguez NP 164 [place] [address] Historical LMR Provider 11/25/1605/11 Shawn Omer MD 40 [place] [address] [email or web address] Historical LMR Provider 11/25/16 05/23/19 Markell Beltre MD [address] [place] [address] [email or web address] Historical LMR Provider 11/25/16 Nohemi Fuentes NP [address] [place] [address] Historical LMR Provider 11/25/16 Leann Simons NP [address] [place] [address] Historical LMR Provider 11/25/16 05/23/19 Kal An MD [address] [place] [address] Chef German Endocrinology 09/02/17 Shawn Omer MD [address] [place] [address] Insurance Assigned Provider 05/17/23 Laya Sandoval MD [address] [place] [address] Endocrinology 05/24/19 Delaney Soriano NP [address] [place] [address] [address] Cardiology 05/24/19 Toby Nelson MD [address] [place] [address] [place] [address] Hospitalist 12/10/19 documented as of this encounter Additional Source Comments The information contained in this document represents components of the legal health record. It is not the complete legal health record.[facility]
--- OUTSIDE RECORDS SUMMARY | 2025-01-17 21:15 | XMS_ITS | Encounter Summary ---
Author Organization [facility] Address [address] [facility] [address] [place] [address] Phone Care Team Providers Care Harness Inspector Name Role Phone Shawn Omer MD Primary Care Provider [phone] Kal An MD Unavailable Shawn Omer MD Unavailable Laya Sandoval MD Unavailable Delaney Soriano NP Unavailable Toby Nelson MD Unavailable [phone] Encounter Details Date Type Department Care Team (Late st Contact Info) Description 06/12/2020 Procedure Pass [facility] Endoscopy Admitting Dept Virtual Department [address] [place] [address] Social History Tobacco Use Types Packs/Day Years [...] Info) Description 01/20/2025 10:00 AM EST Nutrition [facility] General Surgical Care [address] [place] [address] Beverly Pat LDN [address] [place] [address] 03/14/2025 8:20 AM EST Office Visit [facility] Endocrinology [place] 40 [place] [phone] Laya Sandoval MD [address] [address] 06/13/2025 10:30 AM EDT Office Visit [facility] Internal Medicine 40 [place] [address] Shawn Omer MD 40 [place] [address] 07/25/2025 8:40 AM EDT Office Visit [facility] 40 [place] [phone] Suki Altman PA-C 22 [place] [address] documented as of this encounter Visit Diagnoses Not on filedocumented in this encounter Additional Health Concerns Assessment Noted Time PHQ-2 Depression Total Score: 0 04/12/19 21 9:12 AM EST documented as of this encounter Care Teams Harness Inspector Relationship Specialty Start Date End Date Shawn Omer MD [address] [place] [address] PCP - General Internal Medicine 03/18/14 Kal An MD [address] [place] [address] Interior Decorator Painting Endocrinology 09/02/17 Shawn Omer MD [address] [place] [address] Insurance Assigned Provider 05/17/23 Laya Sandoval MD [address] [place] [address] Endocrinology 05/24/19 Delaney Soriano NP [address] [place] [address] Cardiology 05/24/[address] [facility] [address] Hospitalist 12/10/19 documented as of this encounter Additional Source Comments The information contained in this document represents components of the legal health record. It is not the complete legal health record.[facility]
--- OUTSIDE RECORDS SUMMARY | 2025-01-17 21:15 | XMS_ITS | Encounter Summary ---
Author Organization [facility] Address [address] [place] [address] Care Team Providers Care Antisqueak Applier Name Role Phone Unknown, Provider Primary Care Provider Unava ilable Encounter Details Date Type Department Care Team (Late st Contact Info) Description 08/23/2024 Lab Requisition [facility] Pathology & Laboratory Medicine - [facility] [address] [place], [place] [phone] Outr Resulting Lab, Provider Social History Tobacco [...] Salmonella PCR Negative Negative 08/24/2024 14:47 EDT [facility] Shigella/Enteroin vasive E. coli Negative Negative 08/24/2024 14:47 EDT [facility] HN LAB CAMPYLOBACTER PCR Negative Negative 08/24/2024 14:47 EDT [facility] Shiga Toxin PCR Negative Negative 14:47 EDT [facility] Feces SPECIMEN FROM RECTUM / Unknown 08/23/2024 8:00 EDT 08/23/2024 22:21 EDT us Provider Outr Resulting Lab MICROBIOLOGY - GENER AL ORDERABLES Final Result Performing Organization Address [facility] Co de Phone Number [facility] [address] [place], [place] [address] * PARASITE SCREEN, STOOL (08/23/2024 8:00 EDT) Giardia and Cryptosporidium Cryptosporidium Antigen Neg and Giardia Antigen Neg Cryptosporidium Antigen Neg and Giardia Antigen Neg 12:09 EDT [facility] Feces SPECIMEN FROM RECTUM / Unknown 08/23/2024 8:00 EDT 08/23/2024 22:21 EDT us Provider Outr Resulting Lab MICROBIOLOGY - GENER AL ORDERABLES Final Result Performing Organization Address [facility] Co de Phone Number [facility] [address] [place] [address] documented in this encounter Visit Diagnoses Not on filedocumented in this encounter Care Teams Antisqueak Applier Relationship Specialty Start Date End Date Unknown, Provider, PCP - General 09/10/24 documented as of this encounter
--- OUTSIDE RECORDS SUMMARY | 2025-01-17 21:15 | XMS_ITS | Encounter Summary ---
Author Organization [facility] Address [address] [facility] [address] [place] [address] Phone Care Team Providers Care Motor Operator Name Role Phone Shawn Omer MD Primary Care Provider [phone] Kal An MD Unavailable Shawn Omer MD Unavailable Laya Sandoval MD Unavailable Delaney Soriano NP Unavailable Toby Nelson MD Unavailable [phone] Encounter Details Date Type Department Care Team (Latest Contact Info) Description 06/15/2020 Transcribe Orders Virtual Department 30 [place] [address] Kla Ramirez MD [address] [place] [address] [email or web address] Nausea and vomiting, intractability of vomiting not [...] Info) Description 01/20/2025 10:00 AM EST Nutrition [facility] General Surgical Care [address] [place] [address] Beverly Pat LDN [address] Kate[address] 201 [place] [address] 03/14/2025 8:20 AM EST Office Visit [facility] Endocrinology [place] 40 [place] [phone] Laya Sandoval MD [address] [place] [address] 06/13/2025 10:30 AM EDT Office Visit [facility] Internal Medicine 40 [place] [address] Sahwn Omer MD 40 [place] [address] 07/25/2025 8:40 AM EDT Office Visit [facility] Endocrinology [place] 40 [place] [phone] Suki Altman PA-C 22 [place] [address] documented as of this encounter Visit Diagnoses Diagnosis Nausea and vomiting, intractability of vomiting not specified, unspecified vomiting type- Primary documented in this encounter Additional Health Concerns Assessment Noted Time PHQ-2 Depression Total Score: 0 04/12/19 21 9:12 AM EST documented as of this encounter Care Teams Motor Operator Relationship Specialty Start Date End Date Shawn Omer MD 40 [place] [address] [email or web address] PCP - General Internal Medicine 03/18/14 Kal An MD [address] [place] [address] Solar Process Engineer Endocrinology 09/02/17 Shawn Omer MD [address] [place] [address] Insurance Assigned Provider 05/17/23 Laya Sandoval MD [address] [place] [address] Endocrinology 05/24/19 Delaney Soriano NP [address] [place] [address] Dr Lisa 3 [place] [address] Cardiology 05/24/19 Toby Nelson MD [address] [place] [address] [place] [address] Hospitalist 12/10/19 documented as of this encounter Additional Source Comments The information contained in this document represents components of the legal health record. It is not the complete legal health record.[facility]
--- OUTSIDE RECORDS SUMMARY | 2025-01-17 21:15 | XMS_ITS | Encounter Summary ---
Author Organization [facility] Address 399 [facility] [address] [place] [address] Phone Care Team Providers Care Support Assistant Name Role Phone Shawn Omer MD Primary Care Provider [phone] Brianna Rodriguez DIRECTOR OF SUSTAINABLE DESIGN Unavailable Unavailable Shawn Omer MD Unavailable Markell Beltre MD Unavailable Nohemi Fuentes DIRECTOR OF SUSTAINABLE DESIGN Unavailable Leann Simons DIRECTOR OF SUSTAINABLE DESIGN Unavailable [phone] Jie An MD Unavailable Shawn Omer MD Unavailable Laya Sandoval MD Unavailable Delaney Soriano NP Unavailable Toby Nelson MD Unavailable [phone] Reason for Referral * Outpatient Procedure - Closed Specialty Diagnoses / Procedures Referred By Mary Alice diaz Referred To Contact Radiology Diagnoses Ischemic colitis Autonomic neuropathy Nonsurgical dumping syndrome Procedures NM Gastric Emptying Jie Ramirez MD Phone: tel: fax: [email or web address] Referral ID Status Reason Start Date Expiration Date Visits Re quested Visits Authorized [id number] Closed 05/20/2018 05/20/2019 1 1 Encounter Details Date Type Department Care Team (Latest Contact Info) Description 05/20/2018 Transcribe Orders Virtual Department 30 [place] [address] Jie Ramirez MD [address] [place] [address] [email or web address] Ischemic colitis (Primary Dx); Autonomic neuropathy; Nonsurgical [...] Info) Description 01/20/2025 10:00 AM EST Nutrition [facility] 15 [place] [address] Beverly Pat LDN 15 [facility]. 201 [place] [address] [email or web address] 03/14/2025 8:20 AM EST Office Visit [facility] Endocrinology [place] 40 [place] [address] Laya Sandoval MD 22 [facility] 3rd [place] [address] 06/13/2025 10:30 AM EDT Office Visit [facility] Internal Medicine 40 [place] [address] Shawn Omer MD 40 [place] [address] [email or web address] 07/25/2025 8:40 AM EDT Office Visit [facility] 40 [place] [address] Suki Altman PA-C [address] [place] [address] [email or web address] documented as of this encounter Results * [...] IMAGES/FRAMES POS - [id number] Jie Ramirez MD [facility] Final Result * NM GASTRIC EMPTYING SOLID [...] dumping POS - [id number] Jie Ramirez MD [facility] Final Result documented in this encounter [...] documented as of this encounter Care Teams Support Assistant Relationship Specialty Start Date End Date Shawn Omer MD 40 [place] [address] [email or web address] PCP - General Internal Medicine 03/18/14 Brianna Rodriguez DIRECTOR OF SUSTAINABLE DESIGN 164 [place] [address] Historical LMR Provider 11/25/1605/11 Shawn Omer MD [address] [place] [address] [email or web address] Historical LMR Provider 11/25/16 05/23/19 Markell Beltre MD [address] [place] [address] [email or web address] Historical LMR Provider 11/25/16 Nohemi Fuentes NP [address] [place] [address] Historical LMR Provider 11/25/16 Leann Simons NP [address] [place] [address] [email or web address] Historical LMR Provider 11/25/16 05/23/19 Jie An MD [address] [place] [address] Systems Librarian Endocrinology 09/02/17 Shawn Omer MD [address] [place] [address] [email or web address] Insurance Assigned Provider 05/17/23 Laya Sandoval MD [address] [place] [address] [email or web address] Endocrinology 05/24/19 Delaney Soriano NP [address] [place] [address] 3 [place] [address] Cardiology 05/24/19 Toby Nelson MD [address] [place] [address] [place] [address] Hospitalist 12/10/19 documented as of this encounter Additional Source Comments The information contained in this document represents components of the legal health record. It is not the complete legal health record.[facility]
--- OUTSIDE RECORDS SUMMARY | 2025-01-17 21:16 | XMS_ITS | Clinical Summary ---
Author Organization [facility] Address [address] [place] [address] Care Team Providers Care Hot Wire Glass Tube Cutter Name Role Phone Unknown, Provider MD Primary Care Provider Unava ilable Social History Tobacco Use Types Packs/Day Years Used Date Smoking Tobacco: Never Assessed Comments Unknown Sex and Gender Information Value Date Recorded Sex Assigned at Not on file Legal Sex Female 11:26 EDT Gender Identity Not on file Sexual Orientation Not on file Plan of Treatment Health Maintenance Due Date Last Done Comments Hepatitis C Screen 1950 Fall Risk Screening 2014 RSV Immunization ( o r 60+ Years) (1 - 1-dose 75+ series) 2024 COVID-19 Vaccine (2024- season) 2024 Insurance MEDICARE Care Teams Hot Wire Glass Tube Cutter Relationship Specialty Start Date End Date Unknown, Provider, PCP - General 09/10/24
--- OUTSIDE RECORDS SUMMARY | 2025-01-17 21:16 | XMS_ITS | Encounter Summary ---
Author Organization [facility] Address 399 [facility] [address] [place] [address] Phone Care Team Providers Care Medical Unit Secretary Name Role Phone Shawn Omer MD Primary Care Provider Brianna Rodriguez TECHNOLOGY SERVICES MANAGER Unavailable Unavailable Shawn Omer MD Unavailable [phone] Markell Beltre MD Unavailable Nohemi Fuentes TECHNOLOGY SERVICES MANAGER Unavailable Leann Simons TECHNOLOGY SERVICES MANAGER Unavailable [phone] Kal An MD Unavailable Shawn Omer MD Unavailable Laya Sandoval MD Unavailable Delaney Soriano TECHNOLOGY SERVICES MANAGER Unavailable Toby Nelson MD Unavailable [phone] Encounter Details Date Type Department Care Team (Latest Contact Info) Description 11/17/2017 Transcribe Orders [facility] [address] [place] [address] Kal Ramirez MD [address] [place] [address] [phone] Pelvic pain (Primary Dx) Social History Tobacco [...] Info) Description 01/20/2025 10:00 AM EST Nutrition [facility] General Surgical Care [address] [place] [address] Beverly Pat LDN [address] Kate[address] 201 [place] [address] [email or web address] 03/14/2025 8:20 AM EST Office Visit [facility] Endocrinology [place] 40 [place] [phone] Laya Sandoval MD [address] [address] 06/13/2025 10:30 AM EDT Office Visit [facility] Internal Medicine 40 [place] [address] Shawn Omer MD 40 [place] [address] 07/25/2025 8:40 AM EDT Office Visit [facility] Endocrinology [place] 40 [place] [phone] Suki Altman PA-C [address] [place] [address] documented as of this encounter Results * (ABNORMAL) Comprehensive metabolic panel (11/17/2017 8:29 AM EDT) SODIUM 141 133 - 146 mmol/L [facility] POTASSIUM 4.4 3.3 - 5.1 mmol/L [facility] CHLORIDE 98 96 - 108 mmol/L [facility] CO2 28 21 - 35 mmol/L [facility] BUN 12 6 - 19 mg/dL [facility] CREATININE 0.50 0.5 - 1.5 mg/dL [facility] GLUCOSE 109(H) 70 - 99 mg/dL [facility] ALBUMIN 4.2 3.9 - 4.8 g/dL [facility] TOTAL PROTEIN 7.1 6.5 - 8.0 g/dL [facility] CALCIUM 9.4 8.4 - 10.3 mg/dL [facility] ALKALINE PHOSPHATASE 53 39 - 117 U/L [facility] TOTAL BILIRUBIN 0.5 0.0 - 1.2 mg/dL [facility] AST 17 0 - 37 U/L [facility] ALT 16 0 - 40 U/L [facility] GLOBULIN 2.9 1 - 4.8 g/dL [facility] EGFR 99 >59 mL/min/1.7 3m2 [facility] Comment:If patient is black, multiply result by 1.159. Estimated glomerular filtration rate calculated using the CKD-EPI equation. ANION GAP 19 10 - 20 mmol/L [facility] Blood 11/17/2017 8:29 AM EDT 11/17/2017 8:31 AM EDT us Kal Ramirez MD LAB BLOOD BKR ORDERABLES Final Result [facility] 30 [place], [place] [phone] documented in this encounter Visit Diagnoses Diagnosis Pelvic pain- Primary documented in this encounter Additional Health Concerns Infection Onset Date Last Indicated Resolved Time 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 close contact 12/31/2019 12/31/2019 01/14/2020 1:23 AM EST Assessment Noted Time PHQ-2 Depression Total Score: 0 03/13/19 8:47 AM EST documented as of this encounter Care Teams Medical Unit Secretary Relationship Specialty Start Date End Date Shawn Omer MD 40 [place] [address] [email or web address] PCP - General Internal Medicine 03/18/14 Brianna Rodriguez NP 164 [place] [address] Historical LMR Provider 11/25/1605/11 Shawn Omer MD 40 [place], [place] [email or web address] Historical LMR Provider 11/25/16 05/23/19 Markell Beltre MD [address] [place] [address] [email or web address] Historical LMR Provider 11/25/16 Nohemi Fuentes NP [address] [place] [address] Historical LMR Provider 11/25/16 Leann Simons NP [address] [place] [address] 6 [place] [address] [email or web address] Historical LMR Provider 11/25/16 05/23/19 Kal nA MD [address] [place] [address] Business Transformation Manager Endocrinology 09/02/17 Shawn Omer MD 40 [place] [address] [email or web address] Insurance Assigned Provider 05/17/23 Laya Sandoval MD [address] [address] [email or web address] Endocrinology 05/24/19 Delaney Soriano NP [address] [place] [address] [place] [address] Cardiology 05/24/19 Toby Nelson MD [address] [place] [address] [place] [address] Hospitalist 12/10/19 documented as of this encounter Additional Source Comments The information contained in this document represents components of the legal health record. It is not the complete legal health record.[facility]
--- OUTSIDE RECORDS SUMMARY | 2025-01-17 21:16 | XMS_ITS | Encounter Summary ---
Author Organization [facility] Address 399 [facility] [address] [place] [address] Phone Care Team Providers Care Chief Nuclear Medicine Technologist Name Role Phone Shawn Omer MD Primary Care Provider Brianna Rodriguez AIR LIAISON AND SPECIAL STAFF Unavailable Unavailable Shawn Omer MD Unavailable [phone] Markell Beltre MD Unavailable Nohemi Fuentes AIR LIAISON AND SPECIAL STAFF Unavailable [phone] Leann Simons AIR LIAISON AND SPECIAL STAFF Unavailable [phone] Kal An MD Unavailable Shawn Omer MD Unavailable Laya Sandoval MD Unavailable Delaney Soriano NP Unavailable Toby Nelson MD Unavailable [phone] Encounter Details Date Type Department Care Team (Late st Contact Info) Description 10/22/2017 Procedure Pass [facility], Ct Scan - [address] [address] Social History Tobacco Use Types Packs/Day Years [...] Info) Description 01/20/2025 10:00 AM EST Nutrition [facility] General Surgical Care [address] [place] [address] Beverly Pat LDN [address] Kate[address] [place] [address] 03/14/2025 8:20 AM EST Office Visit [facility] Endocrinology [place] 40 [place] [phone] Laya Sandoval MD [address] [address] 06/13/2025 10:30 AM EDT Office Visit [facility] Internal Medicine 40 [place] [address] Shawn Omer MD 40 [place] [address] 07/25/2025 8:40 AM EDT Office Visit [facility] Endocrinology [place] 40 [place] [phone] Suki Altman PA-C 22 [place], [place] [phone] documented as of this encounter Visit Diagnoses Not on filedocumented in this encounter Additional Health Concerns Infection Onset Date Last Indicated Resolved Time 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 close contact 12/31/2019 12/31/2019 01/14/2020 1:23 AM EST Assessment Noted Time PHQ-2 Depression Total Score: 0 03/13/19 18 8:47 AM EST documented as of this encounter Care Teams Chief Nuclear Medicine Technologist Relationship Specialty Start Date End Date Shawn Omer MD 40 [place] [address] [email or web address] PCP - General Internal Medicine 03/18/14 Brianna Rodriguez AIR LIAISON AND SPECIAL STAFF 164 [place] [address] Historical LMR Provider 11/25/1605/11 Shawn Omer MD 40 [place] [address] [email or web address] Historical LMR Provider 11/25/16 05/23/19 Markell Beltre MD [address] [place] [address] [email or web address] Historical LMR Provider 11/25/16 Nohemi Fuentes NP [address] [place] [address] Historical LMR Provider 11/25/16 Leann Simons NP [address] [place] [address] 6 [place] [address] [email or web address] Historical LMR Provider 11/25/16 05/23/19 Kal An MD [address] [place] [address] Facility Environmental Technician Endocrinology 09/02/17 Shawn Omer MD 40 [place] [address] Insurance Assigned Provider 05/17/23 Laya Sandoval MD [address] [place] [address] Endocrinology 05/24/19 Delaney Soriano NP [address] [place] [address] Dr Gonzalez 3 [place] [id number] Cardiology 05/24/19 Toby Nelson MD [address] [place] [address] [place] [address] Hospitalist 12/10/19 documented as of this encounter Additional Source Comments The information contained in this document represents components of the legal health record. It is not the complete legal health record.[facility]
--- OUTSIDE RECORDS SUMMARY | 2025-01-17 21:17 | XMS_ITS | Encounter Summary ---
Author Organization [facility] Address 399 [facility] [address] [place] [address] Phone Care Team Providers Care Car Spotter Name Role Phone Shawn Omer MD Primary Care Provider Brianna Rodriguez TERRAZZO FINISHER HELPER Unavailable Unavailable Shawn Omer MD Unavailable Markell Beltre MD Unavailable Nohemi Fuentes TERRAZZO FINISHER HELPER Unavailable Leann Simons TERRAZZO FINISHER HELPER Unavailable [phone] Kal An MD Unavailable Shawn Omer MD Unavailable [phone] Laya Sandoval MD Unavailable [phone] Delaney Soriano NP Unavailable Toby Nelson MD Unavailable [phone] Reason for Referral * MRI/CAT Scan - Closed Specialty Diagnoses / Procedures Referred By Mary Alice t Referred To Contact Radiology Diagnoses Diarrhea, unspecified type Procedures CT Abdomen/Pelvis Kal Ramirez MD Phone: tel: fax: [email or web address] Referral ID Status Reason Start Date Expiration Date Visits Re quested Visits Authorized [id number] Closed 10/22/2017 10/22/2018 1 1 Encounter Details Date Type Department Care Team (Late Contact Info) Description 10/22/2017 Ancillary Orders Virtual Department 30 [place] [address] Kal Ramirez MD [address] [place] [address] [email or web address] Diarrhea, unspecified type Social History Tobacco Use [...] Info) Description 01/20/2025 10:00 AM EST Nutrition [facility] General Surgical Care 15 [place] [address] Beverly Pat LDN 15 [facility]. 201 [place] [address] 03/14/2025 8:20 AM EST Office Visit [facility] Endocrinology [place] 40 [place] [phone] Laya Sandoval MD [address] [place] [address] 06/13/2025 10:30 AM EDT Office Visit [facility] Internal Medicine 40 [place] [address] Shawn Omer MD 40 [place] [address] 07/25/2025 8:40 AM EDT Office Visit [facility] Endocrinology [address] [place] [address] Suki Altman PA-C [address] [place] [address] documented as of this encounter Results * CT ABDOMEN/PELVIS WITH CONTRAST (11/20/2017 10:52 AM EDT) Anatomical Region Laterality Modality Abdomen, Pelvis Computed Tomogra phy 11/20/2017 2:03 PM EDT Addenda Addendum by Rosanne Valdes MD on 02/05/2018 12:54 PM EST Addendum: Prior CT imaging from [facility] reviewed, CT abdomen and pelvis dated [...] incision. TOTAL CTDIvol: 17.00 mGy POS - [id number] Edited by: Rosamaria Figueroa on 11/20/2017 2:45 [...] incision. TOTAL CTDIvol: 17.00 mGy POS - [id number] Edited by: Rosamaria Figueroa on 11/20/2017 2:45 [...] documented as of this encounter Care Teams Car Spotter Relationship Specialty Start Date End Date Shawn Omer MD 40 [place] [address] [email or web address] PCP - General Internal Medicine 03/18/14 Brianna Rodriguez TERRAZZO FINISHER HELPER 164 [place] [address] Historical LMR Provider 11/25/1605/11 Shawn Omer MD 40 [place] [address] [email or web address] Historical LMR Provider 11/25/16 05/23/19 Markell Beltre MD 165 [place] [address] [email or web address] Historical LMR Provider 11/25/16 Nohemi Fuentes, JEFF [address] [place] [address] 104 [place] [address] Historical LMR Provider 11/25/16 Leann Simons, JEFF 26 [facility] 6 [place] [address] Historical LMR Provider 11/25/16 05/23/19 Kal An MD 26 [facility] [address] [place] [address] Mix House Operator Endocrinology 09/02/17 Shawn Omer MD 40 [place] [address] Insurance Assigned Provider 05/17/23 Laya Sandoval MD [address] [address] Endocrinology 05/24/19 Delaney Soriano NP [address] [place] [address] Dr Gonzalez 3 [place] [address] Cardiology 05/24/19 Toby [place] MD [address] [place] [address] [place] [address] Hospitalist 12/10/19 documented as of this encounter Additional Source Comments The information contained in this document represents components of the legal health record. It is not the complete legal health record.[facility]
--- OUTSIDE RECORDS SUMMARY | 2025-01-17 21:19 | XMS_ITS | Encounter Summary ---
Author Organization [facility] Address 399 [facility] [address] [place] [address] Phone Care Team Providers Care Junior Paralegal Name Role Phone Shawn Omer MD Primary Care Provider Kal An MD Unavailable Shawn Omer MD Unavailable Laya Sandoval MD Unavailable Delaney Soriano NP Unavailable Toby Nelson MD Unavailable [phone] Encounter Details Date Type Department Care Team (Late st Contact Info) Description 06/30/2019 Transcribe Orders [facility] Phleb [place] 30 [place] [address] Laya Sandoval MD [address] [place] [address] Social History Tobacco Use Types Packs/Day Years [...] Info) Description 01/20/2025 10:00 AM EST Nutrition [facility] General Surgical Care [address] [place] [address] Beverly Pat LDN [address] [place] [address] 03/14/2025 8:20 AM EST Office Visit [facility] Endocrinology [place] 40 [place] [phone] Laya Sandoval MD [address] [address] 06/13/2025 10:30 AM EDT Office Visit [facility] Internal Medicine 40 [place] [address] Shawn Omer MD 40 [place] [address] 07/25/2025 8:40 AM EDT Office Visit [facility] Endocrinology [place] 40 [place] [phone] Suki Altman PA-C 22 [place] [address] documented as of this encounter Visit Diagnoses Not on filedocumented in this encounter Additional Health Concerns Infection Onset Date Last Indicated Resolved Time 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 close contact 12/31/2019 12/31/2019 01/14/2020 1:23 AM EST Assessment Noted Time PHQ-2 Depression Total Score: 2 12/02/19 19 8:37 AM EDT documented as of this encounter Care Teams Junior Paralegal Relationship Specialty Start Date End Date Shawn Omer MD 40 [place] [address] PCP - General Internal Medicine 03/18/14 Kal An MD [address] [place] [address] Production Tool Engineer Endocrinology 09/02/17 Shawn Omer MD [address] [place] [address] Insurance Assigned Provider 05/17/23 Laya Sandoval MD [address] [place] [address] Endocrinology 05/24/19 Delaney Soriano NP [address] [place] [address] [address] [place] [address] Cardiology 05/24/19 Toby [place] MD [facility] [place] [address] Hospitalist 12/10/19 documented as of this encounter Additional Source Comments The information contained in this document represents components of the legal health record. It is not the complete legal health record.[facility]
--- OUTSIDE RECORDS SUMMARY | 2025-01-17 21:19 | XMS_ITS | Encounter Summary ---
Author Organization [facility] Address [address] [facility] [address] [place] [address] Phone Care Team Providers Care Metal Machine Setter Name Role Phone Shawn Omer MD Primary Care Provider Brianna Rodriguez RIDE MECHANIC Unavailable Unavailable Shawn Omer MD Unavailable Markell Beltre MD Unavailable [phone] Nohemi Fuentes RIDE MECHANIC Unavailable Leann Simons RIDE MECHANIC Unavailable [phone] Kal An MD Unavailable Shawn Omer MD Unavailable Laya Sandoval MD Unavailable Delaney Soriano NP Unavailable Toby Nelson MD Unavailable [phone] Encounter Details Date Type Department Care Team (Late st Contact Info) Description 04/27/2019 Transcribe Orders [facility] Main [address] [place] [address] Elsie Bond MD [address], [address] [place] [address] Social History Tobacco Use Types Packs/Day Years [...] Info) Description 01/20/2025 10:00 AM EST Nutrition [facility] General Surgical Care [address] [place] [address] Beverly Pat LDN [address] Kate[address] [place] [address] [email or web address] 03/14/2025 8:20 AM EST Office Visit [facility] Endocrinology [place] 40 [place] [phone] Laya Sandoval MD [address] [place] [address] 06/13/2025 10:30 AM EDT Office Visit [facility] Internal Medicine 40 [place] [address] Shawn Omer MD 40 [place] [address] 07/25/2025 8:40 AM EDT Office Visit [facility] Endocrinology [place] 40 [place] [phone] Suki Altman PA-C 22 [place], [place] [phone] documented as of this encounter Visit Diagnoses Not on filedocumented in this encounter Additional Health Concerns Infection Onset Date Last Indicated Resolved Time 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 close contact 12/31/2019 12/31/2019 01/14/2020 1:23 AM EST Assessment Noted Time PHQ-2 Depression Total Score: 2 12/02/19 19 8:37 AM EDT documented as of this encounter Care Teams Metal Machine Setter Relationship Specialty Start Date End Date Shawn Omer MD 40 [place] [address] [email or web address] PCP - General Internal Medicine 03/18/14 Brianna Rodriguez NP [address] [place] [address] Historical LMR Provider 11/25/1605/11 Shawn Omer MD 40 [place] [address] [email or web address] Historical LMR Provider 11/25/16 05/23/19 Markell Beltre MD [address] [place] [address] [email or web address] Historical LMR Provider 11/25/16 Nohemi Fuentes, JEFF [address] [place] [address] Historical LMR Provider 11/25/16 Leann Simons NP [address] [place] [address] [email or web address] Historical LMR Provider 11/25/16 05/23/19 Kal An MD [address] [place] [address] [employer] End[facility]inology 09/02/17 Shawn Omer MD [address] [place] [address] Insurance Assigned Provider 05/17/23 Laya Sandoval MD [address] [place] [address] Endocrinology 05/24/19 Delaney Soriano NP [address] [place] [address] [place] [id number] Cardiology 05/24/19 Toby Nelson MD [facility] [place] [address] Hospitalist 12/10/19 documented as of this encounter Additional Source Comments The information contained in this document represents components of the legal health record. It is not the complete legal health record.[facility]
--- OUTSIDE RECORDS SUMMARY | 2025-01-17 21:20 | XMS_ITS | Encounter Summary ---
Author Organization [facility] Address [address] [facility] [address] [place] [address] Phone Care Team Providers Care Tariff Compiler Name Role Phone Shawn Omer MD Primary Care Provider Brianna Rodriguez CONE CHOCOLATE DIPPER Unavailable Unavailable Shawn Omer MD Unavailable Markell Beltre MD Unavailable Nohemi Fuentes CONE CHOCOLATE DIPPER Unavailable Leann Simons CONE CHOCOLATE DIPPER Unavailable [phone] Kal An MD Unavailable Shawn Omer MD Unavailable [phone] Laya Sandoval MD Unavailable Delaney Soriano NP Unavailable Toby Nelson MD Unavailable [phone] Reason for Referral * MRI/CAT Scan - Closed Specialty Diagnoses / Procedures Referred By Contflorencia t Referred To Contact Procedures CT Abdomen/Pelvis Outside (No Interpretation) System, Provider Not In, [facility] [address] [address] Referral ID Status Reason Start Date Expiration Date Visits Re quested Visits Authorized [id number] Closed 01/23/2018 01/23/2019 1 1 * MRI/CAT Scan - Closed Specialty Diagnoses / Procedures Referred By Contac t Referred To Contact Procedures CT Chest Outside (No Interpretation) System, Provider Not In, [facility] [address] [address] Referral ID Status Reason Start Date Expiration Date Visits Re quested Visits Authorized [id number] Closed 01/23/2018 01/23/2019 1 1 * MRI/CAT Scan - Closed Specialty Diagnoses / Procedures Referred By Contac t Referred To Contact Procedures CT Abdomen/Pelvis Outside (No Interpretation) System, Provider Not In, [facility] [address] [address] Referral ID Status Reason Start Date Expiration Date Visits Re quested Visits Authorized [id number] Closed 01/23/2018 01/23/2019 1 1 Encounter Details Date Type Department Care Team (Late Contact Info) Description 01/23/2018 Ancillary Orders [facility],Outside Imaging 30 [place] [address] System, Provider Not In, [facility] [address] [address] Social History Tobacco Use Types Packs/Day Years [...] Info) Description 01/20/2025 10:00 AM EST Nutrition [facility] General Surgical Care [address] [place] [address] Beverly Pat LDN [address] Kate[address] [place] [address] 03/14/2025 8:20 AM EST Office Visit [facility] Endocrinology [address] [phone] Laya Sandoval MD [address] [address] [email or web address] 06/13/2025 10:30 AM EDT Office Visit [facility] Internal Medicine 40 [place] [address] Shawn Omer MD 40 [place] [address] 07/25/2025 8:40 AM EDT Office Visit [facility] Endocrinology [place] 40 [place] [phone] Suki Altman PA-C 22 [place] [address] [email or web address] documented as of this encounter Results * [...] documented as of this encounter Care Teams Tariff Compiler Relationship Specialty Start Date End Date Shawn Omer MD 40 [place] [address] [email or web address] PCP - General Internal Medicine 03/18/14 Brianna Rodriguez CONE CHOCOLATE DIPPER [address] [place] [address] Historical LMR Provider 11/25/1605/11 Shawn Omer MD 40 [place] [address] [email or web address] Historical LMR Provider 11/25/16 05/23/19 Markell Beltre MD [address] [place] [address] [email or web address] Historical LMR Provider 11/25/16 Nohemi Fuentes, JEFF 21 [facility] [address] [place] [address] Historical LMR Provider 11/25/16 Leann Simons NP 26 [facility] 6 [place] [address] Historical LMR Provider 11/25/16 05/23/19 Kal An MD 26 [facility] 6 [place] [address] [employer] Endocrinology 09/02/17 Shawn Omer MD 40 [place] [address] Insurance Assigned Provider 05/17/23 Laya Sandoval MD [address] [place] [address] Endocrinology 05/24/19 Delaney Soriano NP [address] [place] [address] Dr Gonzalez 3 [place] [address] Cardiology 05/24/19 Toby Nelson MD [facility] [place] [address] Hospitalist 12/10/19 documented as of this encounter Additional Source Comments The information contained in this document represents components of the legal health record. It is not the complete legal health record.[facility]
--- OUTSIDE RECORDS SUMMARY | 2025-01-17 21:20 | XMS_ITS | Encounter Summary ---
Author Organization [facility] Address [address] [place] [address] Phone Care Team Providers Care Horseshoer Name Role Phone Shawn Omer MD Primary Care Provider [phone] Kal An MD Unavailable Shawn mOer MD Unavailable Laya Sandoval MD Unavailable Delaney Soriano NP Unavailable Toby Nelson MD Unavailable [phone] Reason for Visit * Reason Onset Date Comments Syncope 03/05/2021 Encounter Details Date Type Department Care Team (Late st Contact Info) Description 03/05/2021 Telephone [facility] Neuro Services [address] [facility] [address] [place] [address] Mary Anne Maloney, ERIN 36 [place] [address] [email or web address] Social History Tobacco Use Types Packs/Day Years [...] Info) Description 01/20/2025 10:00 AM EST Nutrition [facility] General Surgical Care [address] [place] [address] Beverly Pat LDN [address] Kate[address] [place] [address] 03/14/2025 8:20 AM EST Office Visit [facility] Endocrinology [place] 40 [place] [phone] Laya Sandoval MD 22 [facility] 3rd [place] [address] 06/13/2025 10:30 AM EDT Office Visit [facility] Internal Medicine 40 [place] [address] Shawn Omer MD 40 [place], [place] [email or web address] 07/25/2025 8:40 AM EDT Office Visit [facility] Endocrinology [place] 40 [place] [phone] Suki Altman PA-C 22 [place], [place] [phone] [email or web address] documented as of this encounter Visit Diagnoses Diagnosis Other migraine without status migrainosus, not intractable- Primary documented in this encounter Additional Health Concerns Assessment Noted Time PHQ-2 Depression Total Score: 0 04/12/19 21 9:12 AM EST documented as of this encounter Care Teams Horseshoer Relationship Specialty Start Date End Date Shawn Omer MD [address] [place], [place] [email or web address] PCP - General Internal Medicine 03/18/14 Kal An MD [address] [place], [place] [employer] Endocrinology 09/02/17 Shawn Omer MD [address] [place], [place] [email or web address] Insurance Assigned Provider 05/17/23 Laya Sandoval MD [address] [place] [phone] [email or web address] Endocrinology 05/24/19 Delaney Soriano NP [address] [place] [address] Dr Gonzalez 3 [place], [place] [phone] Cardiology 05/24/19 Toby Nelson MD 10[address] [facility] [place] [address] Hospitalist 12/10/19 documented as of this encounter Additional Source Comments The information contained in this document represents components of the legal health record. It is not the complete legal health record.[facility]
--- OUTSIDE RECORDS SUMMARY | 2025-01-17 21:20 | XMS_ITS | Clinical Summary ---
Author Organization [facility] Address [address] [facility] [address] [place] [phone] Phone Care Team Providers Care Home Theater Experience Expert Name Role Phone Shawn Omer MD Primary Care Provider [phone] Kal An MD Unavailable Shawn Omer MD Unavailable Laya Sandoval MD Unavailable Delaney Soriano NP Unavailable Toby Nelson MD Unavailable [phone] Allergies Active Allergy Reactions Criticality Noted [...] of vomiting not specified, unspecified vomiting type Take 1 tablet (8 mg total) by mouth every 8 (eight) hours as needed for nausea. 30 tablet 5 021 Active fluoride, sodium, (PREVIDENT 5000 BOOSTER) 1.1 % Pste 1 application 2 (two) times a day. Active Medication-Free Text as directed Dx: NIDDM/Polyneuro amina (E11.42), Hammertoe Foot Deformity (M20.41,M20.42) , Preulcerative Skin Lesion(s) (L85.1 Active triamcinolone acetonide 0.1 % cream Apply 1 Application topically daily as needed (for skin issues). has not needed Active empagliflozin (JARDIANCE) 10 mg tabletIndications :Type 2 diabetes mellitus with peripheral neuropathy Take 1 tablet (10 mg total) by mouth daily. 90 tablet 1 024 Active ferrous gluconate 324 mg (37.5 mg elemental) TabIndications:Ir on deficiency anemia, unspecified iron deficiency anemia type take 1 tablet by mouth every day 90 tablet 3 024 Active furosemide (LASIX) 20 MG tablet Take 1 tablet (20 mg total) by mouth daily. 90 tablet 3 025 Active Additional Information Patient taking differently:20 mg Oral3 times weekly (MWF), Reason: Dr. Nelson decreased on 12/16/24 d/t BP too low and lightheadedness, Reported on 12/22/2024 nortriptyline (PAMELOR) 50 MG capsuleIndication s:Cyclical vomiting TAKE 1 CAPSULE NIGHTLY AT BEDTIME 90 capsule 3 025 Active simvastatin (ZOCOR) 20 MG [...] every 30 (thirty) days. 3 mL 3 Active ketoconazole 2 % creamIndications: Rash Apply topically 2 (two) times a day. Apply twice a day to rash. 60 g 2 Active Additional Information Patient taking differently:TopicalAs needed, Apply twice a day to rash., Reported on 01/17/2025 MAGNESIUM CITRATE ORAL Take 2 gummies (400 mg) by mouth once daily. Active ONETOUCH VERIO Strp stripsIndications :Type 2 diabetes mellitus with peripheral neuropathy USE DIRECTED ONCE EVERY DAY 100 strip 3 Active sacubitriL-valsar aldridge (ENTRESTO) 49-51 mg per tablet Take 1 tablet by mouth 2 (two) times a day. Active levothyroxine (SYNTHROID, LEVOTHROID) 88 MCG tabletIndications :Acquired hypothyroidism TAKE 1 TABLET EVERY MORNING 90 tablet 1 Active FLUoxetine (PROZAC) 10 MG capsuleIndication s:History of depression TAKE 1 CAPSULE DAILY 90 capsule 3 025 Active omeprazole (PRILOSEC) 20 MG capsuleIndication s:Gastroesophagea l reflux disease TAKE 1 CAPSULE DAILY 90 capsule 3 025 Active metoprolol succinate (TOPROL-XL) 25 MG 24 hr tabletIndications :Chronic systolic congestive heart failure TAKE 1 TABLET DAILY 90 tablet 3 Active metFORMIN (GLUCOPHAGE-XR) 500 MG 24 hr tabletIndications :Type 2 diabetes mellitus with peripheral neuropathy TAKE 2 TABLETS TWICE A DAY OR DIRECTED 360 tablet 3 Active ascorbic acid, vitamin C, (VITAMIN C) 250 MG tablet Take 250 mg by mouth daily. 2024 Discontinued(N o longer taking) ketoconazole 2 % creamIndications: Fungal rash of trunk Apply topically 2 (two) times a day as needed. To groin rash 45 g 3 025 2024 Discontinued(N o longer taking) metFORMIN (GLUCOPHAGE-XR) 500 MG 24 hr tabletIndications :Type 2 diabetes mellitus with peripheral neuropathy Take 2 tablets, orally twice daily, or as directed 360 tablet 3 025 2024 Discontinued FLUoxetine (PROZAC) 10 MG capsuleIndication s:History of depression Take 1 capsule (10 mg total) by mouth daily. 90 capsule 3 025 2024 Discontinued omeprazole (PRILOSEC) 20 MG capsuleIndication s:Gastroesophagea l reflux disease Take 1 capsule (20 mg total) by mouth daily. 90 capsule 3 025 2024 Discontinued metoprolol succinate (TOPROL-XL) 25 MG 24 hr tabletIndications :Chronic systolic congestive heart failure TAKE 1 TABLET DAILY. 90 tablet 3 025 2024 Discontinued ONETOUCH VERIO Strp stripsIndications :Type 2 diabetes mellitus with peripheral neuropathy Use as directed to monitor glucose once daily Dx E11.42 100 strip 3 2024 Discontinued levothyroxine (SYNTHROID, LEVOTHROID) 88 MCG tabletIndications :Acquired hypothyroidism Take 1 tablet (88 mcg total) by mouth every morning. 90 tablet 1 2024 Discontinued MOUNJARO 7.5 mg/0.5 mL PnIj subcutaneous penIndications:Ty pe 2 diabetes mellitus with peripheral neuropathy [The details of the medication are not available because there are pending changes by a home health clinician.] 6 mL 1 2024 Discontinued(N o longer taking) ciprofloxacin HCl (CIPRO) 500 MG tablet Take 500 mg by mouth 2 (two) times a day. 2024 Discontinued metroNIDAZOLE (FLAGYL) 500 MG tablet Take 500 mg by mouth 3 (three) times a day. 2024 Discontinued(N o longer taking) magnesium oxide (MAG-OX) 400 mg (241.3 mg elemental) tablet Take 400 mg by mouth daily. 2024 Discontinued(O ther) nitrofurantoin (MACROBID) 100 MG capsuleIndication s:Leukocytosis, unspecified type,Acute cystitis without hematuria Take 1 capsule (100 mg total) by mouth 2 (two) times a day for 5 days. 10 capsule 025 2024 Discontinued(N o longer taking) sacubitriL-valsar aldridge (ENTRESTO) 24-26 mg per tablet Take 1 tablet by mouth 2 (two) times a day. 60 tablet 1 025 2024 Discontinued(N o longer taking) ketoconazole 2 % creamIndications: Rash Apply topically 3 (three) times a day. 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 De Oliveira diet and follow-up for ileostomy care with him. I thought she might be able to tolerate small amount of fruit or vegetables. Mixed stress and urge urinary incontinence 09/30 [...] recent surgery, will order VNA services for alf, PT, and OT. PT and OT should [...] heart failure 10/30/2023 Overview (10/30/2023): Fol with [facility] cardiology- Dr. Christal Nelson MD- ov 09/22/23 - cont same meds- cardiomyopathy was due to LBBB with cardiac resynchronization therapy EF improved. Increase physical activity MEDS Furoseminde 20 poqd/ Xarelto 20 poqd/ Entresto 49-51mg po bid 90 days/ simvastatin 20 hs advised 6m f/u Assessment & Plan (09/30/2024 12:02 PM EDT): She has a history of chronic heart failure following with [facility] cardiology and had an appointment today. [...] hypercholesterolemia 03/13/2017 Sleep apnea 03/13/2017 Diarrhea 01/23/2017 Assessment & Plan (11/30/2024 9:49 AM EDT): The patient's diarrhea has largely resolved after her subtotal colectomy with ileostomy. She is no longer taking Imodium or cholestyramine. After discussion with the patient we agreed that she should stay on the beta-joce and nortriptyline given history of abdominal migraine and previous ischemic colitis. Essential hypertension 01/23/2017 Gastroesophageal reflux disease 01/23/2017 Assessment & Plan (11/30/2024 9:49 AM EDT): Continue omeprazole 20 mg daily History of pulmonary embolism 01/23/2017 Hypertension 01/23/2017 [...] meantime. Low threshold for referral to general account assistant. Assessment & Plan (07/24/2015 4:52 PM EDT): [...] this through her primary care physician Dr. Omer. She states that her hemoglobin A1c has been in reasonable range. Acquired hypothyroidism Assessment & Plan (11/18/2024 8:22 AM EDT): With the recent weight loss, will check levels to determine if medication adjustments are needed Assessment & Plan (07/19/2024 3:29 PM EDT): [...] with peripheral neuropa thy Assessment & Plan (01/17/2025 10:36 AM EST): Control is reasonable/good based upon the patient's office provided [email or web address] G6 professional CGM download. Her average glucose level was 137, time in range is 86%, time high is 14%, time very low is <1%. Her glucose levels are doing well off of the mounjaro. Will maintain her regimen. Continue to work on eating healthy and being active. To call or message with any issues managing her glucose levels. Assessment & Plan (11/18/2024 8:36 AM EDT): Control is good based upon the patient's last A1C of 5.7% and her SMBG readings. She is not using any medications to cause hypoglycemia. Following the colectomy she stopped the mounjaro. She is now only using metformin and jardiance to control her glucose levels. She is concerned is she getting enough of the metformin as she is seeing the tablets in the ostomy bag. Discussed how with the extended release tablets they medication is released and the tablet may not dissolve. With the change in her diet and change in medications, will schedule for her a [employer] G6 professional CGM trial to see where her glucose levels are and if she needs any medication additions or adjustments. Will maintain her regimen for now. Will have her meet with the educator to help with balancing her diet in regards to the diabetes and low residue. To call or message with any issues managing his glucose levels. Up to date with [facility]. Will labs ordered by Dr Sandoval Assessment & Plan (09/30/2024 12:02 PM EDT): She has a history of diabetes following with [facility] endocrinology with current management including Mounjaro 7.5 [...] with problems with glycemic control. Scheduled with [facility]. Follows w/ podiatry. Umalb/creat up to date, [...] his glucose levels. Up to date with [facility]. Labs ordered Assessment & Plan (01/20/2024 12:45 PM EST): Control has been excellent. No issues tolerating medications. We can try titrating up mounjaro from 5 to 7.5 mg weekly. Continue to work on eating healthy & keeping active. To call or send in BG with problems with glycemic control. Up to date with [facility]. Follows w/ podiatry. Umalb/creat up to date, [...] his glucose levels. Up to date with [facility]. Reviewed labs Assessment & Plan (08/04/2023 8:51 [...] his glucose levels. Up to date with [facility]. Reviewed labs Assessment & Plan (04/28/2023 8:55 [...] glucose levels. Up to date with ophtho. Sees podiatry. Assessment & Plan (04/22/2022 11:05 [...] and being active. Up to date with [facility]. Annual visit is due at the end of the month, to have copy of note sent to office. Sees podiatry. Will be due for labs before next visit snf current use of oral hypoglycemic drug Assessment [...] Encounters Date Type Department Care Team Description 01/17/2025 9:40 AM EST Office Visit [facility] [address] [place] [phone] Suki Altman PA-C Type 2 diabetes mellitus with peripheral neuropathy (Primary Dx) 01/02/2025 Refill [facility] [address] [place] [phone] Laya Sandoval MD Medication Refill 01/02/2025 Refill [facility] [address] [place] [address] Shawn Omer MD Medication Refill 12/28/2024 Refill [facility] [address] [place] [phone] Laya Sandoval MD Medication Refill 12/27/2024 8:40 AM EST Office Visit [facility] [address] [place] [phone] Suki Altman PA-C Type 2 diabetes mellitus with peripheral neuropathy (Primary Dx) 12/22/2024 9:30 AM EST Office Visit [facility] [address] [place] [address] Shawn Omer MD Routine general medical examination at a health care facility (Primary Dx); Type 2 diabetes mellitus with peripheral neuropathy; Vitamin D deficiency, unspecified; S/P colectomy; Chronic heart failure, unspecified heart failure type; Gastroesophageal reflux disease without esophagitis; Anemia, unspecified type 12/22/2024 Orders Only [facility] [address] [place] [address] Dallas Jovel MD 12/21/2024 Refill [facility] [address] [place] [phone] Laya Sandoval MD Medication Refill 12/07/2024 Orders Only [facility] [address] [place] [address] ProviderDallas MD 12/06/2024 10:30 AM EDT Nurse Only [facility] [address] [place] [address] [place] [address] Suki Altman PA-C Type 2 diabetes mellitus with peripheral neuropathy (Primary Dx) 12/06/2024 10:20 AM EDT - 12/06/2024 11:59 PM EDT Hospital Encounter [facility] [address] [place] [address] Sandra Klein PA-C Discharge Disposition: Home or Self Care 11/30/2024 9:30 AM EDT Office Visit [facility] [address] [place] [address] Unknown, Unknown, Kal Doran MD Diarrhea, unspecified type (Primary Dx); History of total colectomy; History of Clostridioides difficile colitis; Gastroesophageal reflux disease without esophagitis 11/22/2024 7:18 AM EDT - 11/22/2024 11:59 PM EDT Hospital Encounter [facility] [address] [address] Laya Sandoval MD Discharge Disposition: Home or Self Care 11/22/2024 Transcribe Orders [facility] [address] [address] Laya Sandoval MD Type 2 diabetes mellitus with peripheral neuropathy (Primary Dx) 11/17/2024 [address] [address] Nadiya Pickard Appointment 11/16/2024 8:40 AM EDT Office Visit [facility] [address] [place] [address] Suki Altman PA-C Type 2 diabetes mellitus with peripheral neuropathy (Primary Dx); Acquired hypothyroidism 11/09/2024 2:30 PM EDT Home Care Visit [facility] [address] [place] [address] Leslie Lo, SAUD SN OASIS DISCHARGE VISIT 11/05/2024 10:00 AM EDT Home Care Visit [facility] [address] [place] [address] Alma Singh, SAUD SN HOME VISIT 11/02/2024 8:30 AM EDT Home Care Visit [facility] [address] [place] [address] Lizzie Douglas, PT PT DISCIPLINE DISCHARGE VISIT 10/28/2024 11:00 AM EDT Home Care Visit [facility] [address] [place] [address] Leslie Lo, RN SN HOME VISIT 10/28/2024 9:00 AM EDT Home Care Visit [facility] [address] [place] [address] Diego Alba, OT OT DISCIPLINE DISCHARGE VISIT 10/28/2024 Telephone [facility] [address] [place] [address] Shawn Omer MD Home OT Discharge 10/26/2024 9:00 AM EDT Home Care Visit [facility] [address] [place], [place] [phone] Diego Alba, OT OT HOME VISIT 10/26/2024 8:00 AM EDT Home Care Visit [facility] [address] [place], [place] [phone] Lizzie Douglas, PT PT HOME VISIT 10/24/2024 8:15 AM EDT Home Care Visit [facility] [address] [place], [place] [phone] Karson Blount, RN SN HOME VISIT 10/22/[address] [address] Nadiya Pickard VNA Update 10/21/2024 11:30 AM EDT Home Care Visit [facility] [address] [place], [place] [phone] Lesile Lo, SAUD SN HOME VISIT 10/21/2024 9:00 AM EDT Home Care Visit [facility] [address] [place], [place] [phone] Diego Alba, OT OT HOME VISIT 10/19/2024 7:30 AM EDT Home Care Visit [facility] [address] [place], [place] [phone] Lizzie Douglas, PT PT HOME VISIT 10/19/2024 1:00 AM EDT Home Care Visit [facility] [address] [place], [place] [phone] Jeanette Phillips HOT HEADER OPERATOR HOME VISIT 10/18/2024 12:30 PM EDT Home Care Visit [facility] [address] [place], [place] [phone] Leslie Lo, SAUD SN HOME VISIT from Last 3 Months Immunizations Immunization Administration Dates Next Due COVID-19 (Pre-12/02) Pfizer Vaccine, Bivalent 12+ 11/16/2021 COVID-19 (Pre-12/02) Pfizer Vaccine, mRNA, PF 04/23/2020,03/30/2020 COVID-19, Unspecified Formulation 11/27/2020,03/2020 [id number] FORMULATION 12/11/2008 Influenza High-Dose Quadriva lent Preservative Free IM 11/16/2021,10/17/2020 Influenza High-Dose Trivalen t Preservative Free IM 10/24/2023,12/01/2018,11/21/2017 Influenza Quadrivalent Adjuv anted Preservative Free IM 10/31/2022,10/31/2019 Influenza Trivalent Adjuvant ed Preservative free IM 11/16/2024 Influenza trivalent preserva tive free intradermal 11/09/2012 [...] Pulse 95 01/17/2025 10:01 AM EST Temperature 37.1 C (98.7 F) 12/22/2024 9:34 AM EST Respiratory Rate 24 12/22/2024 9:34 AM EST Oxygen Saturation 95% 01/17/2025 10:01 AM EST Inhaled Oxygen Concentration - - Weight 71.4 kg (157 lb 6.4 oz) 12/22/2024 9:34 A M EST Height 158.9 cm (5' 2.56 ) 01/17/2025 10:[address] Body Mass Index 28.28 12/22/2024 9:34 AM EST Plan of Treatment Upcoming Encounters Date Type Department Care Team (Late st Contact Info) Description 01/20/2025 10:00 AM EST Nutrition [facility] [address] [place] [address] Beverly Pat LDN [address] [place], [place] [phone] [email or web address] 03/14/2025 8:20 AM EST Office Visit [facility] [address] [place] [phone] Laya Sandoval MD [address] [address] 06/13/2025 10:30 AM EDT Office Visit [facility] [address] [place] [address] Shawn Omer MD [address] [place] [address] 07/25/2025 8:40 AM EDT Office Visit [facility] [address] [place] [phone] Suki Altman PA-C [address] [place] [address] Health Maintenance Due Date Last Done Comments COVID-19 VACCINE ( season) 2025 11/16/2024, 10/24/2023, 04/29/2023, Additional history exists HEMOGLOBIN A1C 05/23/2025 11/22/2024, 0710/2024, 04/29/2024, Additional history exists BLOOD PRESSURE 07/18/2025 01/17/2025 DIABETIC EYE EXAM 08/10/2025 08/10/2024, , 05/15/2023, Additional history exists CREATININE LEVEL 11/22/2025 11/22/2024, , 09/14/2024, Additional history exists TSH LEVEL 11/22/2025 11/22/2024, 03/13, 08/04/2023, Additional history exists DEPRESSION SCREENING 12/21/2025 12/21/2024 Adult Td,Tdap Booster 03/28/2026 03/28/2016 , 10/18/2011, 06/11/2002, Additional history exists PNEUMOCOCCAL VACCINES (50+ years) Completed 03/13/2017, 03/07/2016, 04/10/2004 HEPATITIS C SCREENING Completed 03/23/2019, 020 ZOSTER VACCINES Completed 07/17/2019, 08/2018, 02/10/2010 OSTEOPOROSIS SCREENING INITIAL (ONE-TIME) Completed 09/20/2019 RSV VACCINE Completed 11/07/2023 INFLUENZA VACCINE Completed 11/16/2024, , 10/31/2022, Additional history exists SMOKING STATUS SCREENING (Once After 26 Yrs) Completed 12/22/2024 HEPATITIS A VACCINES Aged Out No long [...] this topic Medical Devices Implanted Type Area Regional Clinical Research Associate Device Identifier Shelf Expiration Date Model / Serial / Lot Icd ICD Procedures Procedure Name Priority Date/Time Associated Diagnosis Comments OUTSIDE IMAGING Routine 12/22/2024 4:15 PM EST OUTSIDE MONITOR Routine 12/07/2024 7:40 AM EDT MICROALBUMIN/CREATININE RATIO, RANDOM URINE Routine 12/06/2024 8:30 AM EDT Type 2 diabetes mellitus with peripheral neuropathy HEMOGLOBIN A1C Routine 11/22/2024 7:33 AM EDT Type 2 diabetes mellitus with peripheral neuropathy TSH WITH REFLEX Routine 11/22/2024 7:33 AM EDT Acquired hypothyroidism ASPARTATE AMINOTRANSFERASE (AST) Routine 11/22/2024 7:33 AM EDT Type 2 diabetes mellitus with peripheral neuropathy ALANINE AMINOTRANSFERASE (ALT) Routine 11/22/2024 7:33 AM EDT Type 2 diabetes mellitus with peripheral neuropathy BASIC METABOLIC PANEL (BMP) Routine 11/22/2024 7:33 AM EDT Type 2 diabetes mellitus with peripheral neuropathy HM DIABETES EYE EXAM FOR RESULT ENTRY ONLY Routine 08/10/2024 5:50 PM EDT BD DXA AXIAL (SPINE) WITH HIP Routine 09/20/2019 8:31 AM EDT Postmenopausal estrogen deficiency HEPATITIS C ANTIBODY, QUALITATIVE Routine 03/23/2019 8:18 AM EST Need for hepatitis C screening test from Last 3 Months or Most Recently Relevant to Health Maintenance Results * Outside Imaging Report Only (12/22/2024 4:15 PM EST) Historical Provider IMG XR CHEST Final Res ult * Outside Monitor Report Only (12/07/2024 7:40 AM EDT) Result [facility] Historical Provider CV CARDIAC SERVICES ORDER INGRID Final Result * Microalbumin/creatinine ratio, random urine (12/06/2024 8:30 AM EDT) URINE MICROALBUMIN <1.2 0 - 2.3 mg/dL [facility] URINE CREATININE 88 mg/dL [employer] MICROALB/CRE RATIO NOT CALCULATED 0 - 20 mg/g Cre [facility] Comment:due to Microalbumin <1.2 Urine (Urine) 12/06/2024 8:3 0 AM EDT 12/06/2024 10:34 AM EDT Laya Sandoval MD LAB URINE ORDERABLES F inal Result [facility] [address] [place] [address] * TSH with reflex (11/22/2024 7:33 AM EDT) TSH 0.62 0.27 - 4.20 uIU/mL [facility] Blood 11/22/2024 7:33 AM EDT 11/22/2024 7:38 AM EDT us Laya Sandoval MD LAB BLOOD BKR ORDERABL ES Final Result [address] [address] * Alanine aminotransferase (ALT) (11/22/2024 7:33 AM EDT) ALT 11 0 - 40 U/L [facility] Blood 11/22/2024 7:33 AM EDT 11/22/2024 7:38 AM EDT us Laya Sandoval MD LAB BLOOD BKR ORDERABL ES Final Result Performing Organization Address [facility] Co de Phone Number [address] [address] * Aspartate aminotransferase (AST) (11/22/2024 7:33 AM EDT) AST 16 0 - 37 U/L [facility] Blood 11/22/2024 7:33 AM EDT 11/22/2024 7:38 AM EDT us Laya Sandoval MD LAB BLOOD BKR ORDERABL ES Final Result Performing Organization Address City/[facility] Co de Phone Number [address] [address] * (ABNORMAL) Hemoglobin A1c (11/22/2024 7:33 AM EDT) HEMOGLOBIN A1C 6.1(H) 4.3 - 5.8 % [facility] Blood 11/22/2024 7:33 AM EDT 11/22/2024 7:38 AM EDT Laya Sandoval MD LAB BLOOD BKR ORDERABL ES Final Result Performing Organization Address [facility] Co de Phone Number [address] [address] * (ABNORMAL) Basic metabolic panel (11/22/2024 7:33 AM EDT) SODIUM 137 133 - 146 mmol/L [facility] CHLORIDE 100 96 - 108 mmol/L [facility] POTASSIUM 4.6 3.3 - 5.1 mmol/L [facility] CO2 26 21 - 35 mmol/L [facility] BUN 23(H) 6 - 19 mg/dL [facility] CREATININE 0.80 0.5 - 1.5 mg/dL [facility] GLUCOSE 169(H) 70 - 99 mg/dL [facility] CALCIUM 9.9 8.4 - 10.3 mg/dL [facility] EGFR 77 >59 mL/min/1.7 3m2 [facility] Comment:Estimated glomerular filtration rate calculated using the CKD-EPI refit equation. ANION GAP 16 10 - 20 mmol/L [facility] Blood 11/22/2024 7:33 AM EDT 11/22/2024 7:38 AM EDT us Laya Sandoval MD LAB BLOOD BKR ORDERABL ES Final Result Performing Organization Address [facility]/ZIP Co de Phone Number [address] [address] * DIABETES EYE EXAM FOR RESULT ENTRY ONLY (08/10/2024 5:50 PM EDT) Historical Provider HEALTH MAINTENANCE Final Result * BD DXA AXIAL (SPINE) WITH HIP [...] the WHO classification of normal. Procedure Note Kal Phelps MD - 09/20/2019 This is a [...] the right hip was calculated at 1.073 gm/qb4jnuv a T-score of 1.1 and Z-score of 2.6 falling within the WHOclassification of normal. Total bone mineral density in the left hip wascalculated at 1.043 gm/cm2 with a T-score of 0.8 and Z-score of 2.4falling within the WHO classification of normal. IMPRESSION: Normal bone mineral density. POS - [id number] us Shawn Omer MD IMG BD BONE DENSITY DEXA Maribeth l Result * Hepatitis C antibody, qualitative (03/23/2019 8:18 AM EST) HCV NON-REACTIV E NON-REACTI VE [facility] Blood 03/23/2019 8:18 AM EST 03/23/2019 8:20 AM EST us Shawn Omer MD LAB BLOOD BKR ORDERABLES Maribeth l Result [facility] [address] [place] [address] from Last 3 Months or Most Recently Relevant to Health Maintenance Insurance MEDICARE PART A & B [facility] MEDEX SUPPLEMENT MEDICARE PART A & B [employer] MEDEX SUPPLEMENT MEDICARE PART A & B [employer] MEDEX SUPPLEMENT MEDICARE PART A & B [employer] MEDEX SUPPLEMENT MEDICARE PART A & B [employer] MEDEX SUPPLEMENT MEDICARE PART A & B [facility] MEDEX SUPPLEMENT MEDICARE PART A & B [employer] MEDEX SUPPLEMENT MEDICARE PART A & B [employer]EX SUPPLEMENT MEDICARE PART A & B [employer] SUPPLEMENT Care Teams Home Theater Experience Expert Relationship Specialty Start Date End Date Shawn Omer MD [address] [place] [address] [email or web address] PCP - General Internal Medicine 03/18/14 Kal An MD [address] [place] [address] Account Installer Endocrinology 09/02/17 Shawn Omer MD [address] [place] [address] Insurance Assigned Provider 05/17/23 Laya Sandoval MD [address] [place] [id number] Endocrinology 05/24/19 Delaney Soriano NP [address] [place] [address] Dr [address] [place] [address] Cardiology 05/24/19 Toby Nelson MD [facility] [place] [address] Hospitalist 12/10/19 Additional Source Comments The information contained in this document represents components of the legal health record. It is not the complete legal health record.[facility]
--- OUTSIDE RECORDS SUMMARY | 2025-01-17 21:20 | XMS_ITS | Encounter Summary ---
Author Organization [facility] Address [address] [facility] [address] [place] [phone] Phone Care Team Providers Care Product Specialist Name Role Phone Shawn Omer MD Primary Care Provider [phone] Kal An MD Unavailable Shawn Omer MD Unavailable Laya Sandoval MD Unavailable Delaney Soriano NP Unavailable Toby Nelson MD Unavailable [phone] Encounter Details Date Type Department Care Team (Late st Contact Info) Description 10/20/2023 Procedure Pass [facility] Endoscopy Admitting Dept Virtual Department [address] [place] [id number] Social History Tobacco Use Types Packs/Day Years [...] Info) Description 01/20/2025 10:00 AM EST Nutrition [facility] [address] [place] [address] Beverly Pat LDN [address] [place] [address] 03/14/2025 8:20 AM EST Office Visit [facility] [place] [address] [place] [phone] Laya Sandoval MD [address] [address] 06/13/2025 10:30 AM EDT Office Visit [facility] Internal Medicine [address] [place] [address] Shawn Omer MD [address] [place] [address] 07/25/2025 8:40 AM EDT Office Visit [facility] [place] [address] [place] [phone] Suki Altman PA-C [address] [place], [place] [phone] documented as of this encounter Visit Diagnoses Not on filedocumented in this encounter Additional Health Concerns Assessment Noted Time PHQ-2 Depression Total Score: 0 12/12/19 23 1:09 PM EDT documented as of this encounter Care Teams Product Specialist Relationship Specialty Start Date End Date Shawn Omer MD [address] [place] [address] PCP - General Internal Medicine 03/18/14 Kal An MD [address] [place] [address] Industrial Production Manager Endocrinology 09/02/17 Shawn Omer MD [address] [place] [address] [email or web address] Insurance Assigned Provider 05/17/23 Laya Sandoval MD [address] [place] [address] Endocrinology 05/24/19 Delaney Soriano NP [address] [place] [address] [place] [address] Cardiology 05/24/19 Toby Nelson MD [address] [facility] [place] [facility] [place] [address] Hospitalist 12/10/19 documented as of this encounter Additional Source Comments The information contained in this document represents components of the legal health record. It is not the complete legal health record.[facility]
== END 2025-01-17 13:02 | disposition home or self-care (01) ==
LOC: HO.HCS 12:34
PROVIDERS: PCP Internal Medicine; Visit Provider Internal Medicine Cardiovascular Disease
DX: I10 Essential (primary) hypertension (principal); I50.9 Heart failure, unspecified
CPT/HCPCS: 99214

== ENCOUNTER → 2025-01-17 12:33 | Outpatient (BNVA) | payer MEDICARE, SELFPAY | PROVIDERS: PCP Internal Medicine; Visit Provider Internal Medicine Cardiovascular Disease | DX: I10 Essential (primary) hypertension (principal); I50.9 Heart failure, unspecified | CPT/HCPCS: 99212 ==

== ENCOUNTER → 2025-01-29 11:55 | Outpatient (BNV) | payer MEDICARE, SELFPAY | PROVIDERS: PCP Internal Medicine; Visit Provider Internal Medicine Cardiovascular Disease | DX: I50.9 Heart failure, unspecified (principal); I42.9 Cardiomyopathy, unspecified | CPT/HCPCS: 93297 ==

== ENCOUNTER → 2025-01-29 11:59 | Outpatient (BNV) | payer MEDICARE, SELFPAY | PROVIDERS: PCP Internal Medicine; Visit Provider Internal Medicine Cardiovascular Disease | DX: I50.9 Heart failure, unspecified (principal) | CPT/HCPCS: 93297 ==